=== PATIENT | female | born 1985 | race Caucasian/White ===

== ENCOUNTER 2020-05-06 10:59 | Emergency (ER) | payer OTHER, SELFPAY ==
[2020-05-06 11:22] VITALS: BP 139/89; PULSE 74; RESP 16; TEMP 36.9; O2SAT 99
--- NOTE | 2020-05-06 11:26 | ED.FEMALEGU ---
HPI - Female Genitourinary General Chief complaint: Urogenital-Female Stated complaint: possible uti Time Seen by Provider: 05/06/20 11:31 Source: patient and RN notes reviewed Mode of arrival: ambulatory Limitations: no limitations History of Present Illness HPI Narrative: This is a 35 years old female presents to the office for an evaluation of possible UTI. Onset about 1.5week ago with urinary urgency and frequency; which she tried to take care of it with azo. Symptoms are getting worse over the past couple days with urinary pressure/pain after she voids. Admits to history of UTI in the past. Symptoms reminiscent her previous UTI. 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 Related Data Home Medications Medication Instructions Recorded Confirmed acyclovir 400 mg PO BID 05/06/20 05/06/20 aspirin [Adult Low Dose Aspirin] 81 mg PO DAILY 05/06/20 05/06/20 ergocalciferol (vitamin D2) 1,250 mcg PO WEEKLY 05/06/20 05/06/20 [Vitamin D2] sertraline 75 mg PO DAILY 05/06/20 05/06/20 Allergies Allergy/AdvReac Type Severity Reaction Status Date / Time [place] And Derivatives AdvReac Mild Nausea and Verified 05/06/20 11:30 Vomiting Review of Systems Review of Systems: Narrative: CONSTITUTIONAL: Denies fever ENT: Denies rhinorrhea, congestion, sore throat, otalgia. CARDIOVASCULAR: Denies chest pain, palpitation RESPIRATORY: Denies dyspnea, wheezing, cough GASTROINTESTINAL: Denies abdominal pain, vomiting, diarrhea. Reports nausea GENITOURINARY: Denies vaginal discharge. SKIN: Denies rash MUSCULOSKELETAL: Reports sore in lower back;which is typical when she has UTI. NEUROLOGIC: Denies lightheaded All other systems reviewed are negative, except as documented in HPI. [facility] Past Medical History Medical History (Updated 05/06/20 @ 11:41 by SUZANNA Kang) Depression with anxiety GERD (gastroesophageal reflux disease) Hx of pulmonary artery stenosis Surgical History Surgical History (Updated 05/06/20 @ 11:30 by SUZANNA Kang) Hx of cholecystectomy Hx of mitral valve replacement Hx of tonsillectomy Family History Family History (Updated 05/06/20 @ 11:31 by SUZANNA Kang) Father Diabetes mellitus Lung cancer Comments At time of signature, I agree with nursing past medical, surgical, social and family history. There is no relevant family history pertinent to the presenting complaint. Exam Narrative: Exam Narrative: GENERAL: This is a well-nourished, well-developed patient, in no apparent distress. NOSE: External nose noted a couple pimple like lesions without erythema or edematous. No honey/crusted like lesions. No obvious nasal discharge, nares without redness, no rhinorrhea. CARDIOVASCULAR: Regular rate and rhythm with murmur noted. Patient aware that she has murmur. RESPIRATORY: Clear to auscultation. Breath sounds equal bilaterally. No wheezes, rales, or rhonchi. GASTROINTESTINAL: Abdomen soft, non-tender, nondistended. Bowel sounds are active. No hepato-splenomegaly, or palpable masses. No guarding. NEURO: awake, alert, and oriented to person, place and time. There were no obvious focal neurologic abnormalities. Steady gait [place] Coma Scale Eye Opening: Spontaneous 4 [place] Coma Scale Motor: Obeys Commands 6 [place] Coma Scale Verbal: Oriented 5 Course Vital Signs Vital signs: Vital Signs Temperature 98.5 F 05/06/20 11:22 Pulse Rate 74 05/06/20 11:22 Respiratory Rate 16 05/06/20 11:22 Blood Pressure 139/89 05/06/20 11:22 Pulse Oximetry 99 05/06/20 11:22 Temperature 98.5 F 05/06/20 11:22 Pulse Rate 74 05/06/20 11:22 Respiratory Rate 16 05/06/20 11:22 Blood Pressure 139/89 05/06/20 11:22 Pulse Oximetry 99 05/06/20 11:22 MDM - Female Genitourinary MDM Narrative Medical decision making narrative: Discharge instructions reviewed with patient, as well as provided in writing per nursing
== END 2020-05-06 11:45 | disposition home or self-care (01) ==
PROVIDERS: Emergency Provider Nurse Practitioner; PCP Internal Medicine
DX: R30.0 Dysuria (principal); R35.0 Frequency of micturition; F32.9 Major depressive disorder, single episode, unspecified; F41.9 Anxiety disorder, unspecified; K21.9 Gastro-esophageal reflux disease without esophagitis; Q25.6 Stenosis of pulmonary artery; Z95.2 Presence of prosthetic heart valve; Z79.82 Long term (current) use of aspirin
CPT/HCPCS: 81003; 87086; 99213; G0463

== ENCOUNTER 2020-06-20 16:20 | Emergency (ER) | payer OTHER, SELFPAY ==
[2020-06-20 16:33] VITALS: BP 139/70; PULSE 76; RESP 16; TEMP 36.9; O2SAT 98
--- NOTE | 2020-06-20 17:13 | ED.DENTAL ---
HPI - Dental/Oral General Chief complaint: Dental/Oral Stated complaint: sore throat Time Seen by Provider: 06/20/20 17:05 Source: patient Mode of arrival: ambulatory Limitations: no limitations History of Present Illness HPI Narrative: Destini Skinner is a 35 yo female with a PMH of pulmonary stenosis, pulmonary valve replacement, GERD, anxiety, chronic treatment for HSV 1, who comes to office with complaints of left lower jaw swelling and submandibular tenderness that started on Thursday. Remotely she has had a root canal 2 weeks ago after having a dental infection and abscess. 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 Related Data Home Medications Medication Instructions Recorded Confirmed acyclovir 400 mg PO BID 05/06/20 06/20/20 aspirin [Adult Low Dose Aspirin] 81 mg PO DAILY 05/06/20 06/20/20 ergocalciferol (vitamin D2) 1,250 mcg PO WEEKLY 05/06/20 06/20/20 [Vitamin D2] sertraline 75 mg PO DAILY 05/06/20 06/20/20 famotidine [Pepcid AC] 20 mg PO DAILY 06/20/20 06/20/20 Allergies Allergy/AdvReac Type Severity Reaction Status Date / Time [place] And Derivatives AdvReac Mild Nausea and Verified 05/06/20 11:30 Vomiting Review of Systems Review of Systems: Narrative: CONSTITUTIONAL: Denies fever, chills, sweats. EYES: Denies visual changes, redness, discharge. ENT: Denies rhinorrhea, congestion, sore throat, otalgia. Left lower jaw with submandibular tenderness and pain CARDIOVASCULAR: Denies chest pain, palpitations, edema. RESPIRATORY: Denies dyspnea, wheezing, cough GASTROINTESTINAL: Denies abdominal pain, nausea, vomiting, diarrhea. GENITOURINARY: Denies dysuria, hematuria, abnormal discharge SKIN: Denies rash or itching. NEUROLOGIC: Denies numbness, or focal weakness. PSYCHIATRIC: Denies anxiety or depression. [facility] Past Medical History Medical History Depression with anxiety GERD (gastroesophageal reflux disease) Hx of pulmonary artery stenosis Pulmonary stenosis Surgical History Surgical History Hx of cholecystectomy Hx of mitral valve replacement Hx of tonsillectomy Family History Family History Father Diabetes mellitus Lung cancer Social History Social History (Updated 06/20/20 @ 17:19 by Monika Harkins CNP) Smoking status: Never smoker Alcohol intake: current Gender identity (if verbalized by the patient): Female Comments At time of signature, I agree with nursing past medical, surgical, social and family history. There is no relevant family history pertinent to the presenting complaint. Exam Narrative: Exam Narrative: GENERAL: This is a well-nourished, well-developed patient, in mild distress. HEAD: normocephalic, atraumatic. EYES:Sclera clear/white. Vision is grossly intact. EARS: External ears normal, auditory canals clear and without drainage, TMs normal without perforation. Left ear pain but eardrum and canal are normal -hearing grossly intact. NOSE: External nose normal without nasal discharge, nares without redness, no rhinorrhea. THROAT: Mucous membranes moist, posterior pharynx mild erythema with left cheek swelling submandibular tenderness with large enlarged lymph node NECK: Neck supple, tender CARDIOVASCULAR: Regular rate and rhythm without murmurs, gallops, or rubs. RESPIRATORY: Clear to auscultation. Breath sounds equal bilaterally. No wheezes, rales, or rhonchi. GASTROINTESTINAL: Abdomen soft, non-tender, SKIN: warm, intact with no suspicious lesions or rash, good texture and turgor. NEURO: awake, alert, and oriented to person, place and time. There were no obvious focal neurologic abnormalities. Steady gait EXTREMITIES: Normal range of motion. BACK: Nontender without deformity Course Course Emergency Course: Patient has multipl
== END 2020-06-20 17:28 | disposition home or self-care (01) ==
PROVIDERS: Emergency Provider Nurse Practitioner; PCP Internal Medicine
DX: I88.9 Nonspecific lymphadenitis, unspecified (principal); K21.9 Gastro-esophageal reflux disease without esophagitis; F41.9 Anxiety disorder, unspecified; F32.9 Major depressive disorder, single episode, unspecified; Z95.2 Presence of prosthetic heart valve
CPT/HCPCS: 99213; G0463

== ENCOUNTER 2020-08-17 12:56 | Emergency (ER) | payer OTHER, SELFPAY ==
[2020-08-17 13:05] VITALS: BP 135/77; PULSE 83; RESP 16; TEMP 36.4; O2SAT 99
--- NOTE | 2020-08-17 13:09 | ED.LOWEXIN ---
HPI - Extremity Injury (Lower) General Chief Complaint: Extremity Injury, Lower Stated Complaint: back heel of right foot pain Source: patient and RN notes reviewed Limitations: no limitations History of Present Illness HPI Narrative: The obese patient, previously mostly healthy, presents with right heel pain. Patient states she has a half week history of right heel pain is mild, worse with motion, better at rest, located the insertion of the calcaneus. No known overuse/increase activity, bleeding, deformity, prior injury-but she had some mild ankle discomfort over a week ago that resolved completely after slipping. Discussed will treat broadly with meds, provided therapy exercises, and advice on inserts. Related Data Home Medications Medication Instructions Recorded Confirmed acyclovir 400 mg PO BID 05/06/20 08/17/20 aspirin [Adult Low Dose Aspirin] 81 mg PO DAILY 05/06/20 08/17/20 ergocalciferol (vitamin D2) 1,250 mcg PO WEEKLY 05/06/20 08/17/20 [Vitamin D2] sertraline 75 mg PO DAILY 05/06/20 08/17/20 famotidine [Pepcid AC] 20 mg PO DAILY 06/20/20 08/17/20 levonorgestrel-ethinyl estrad 1 tablet PO HS 08/17/20 08/17/20 [Vienva] Allergies Allergy/AdvReac Type Severity Reaction Status Date / Time [place] And Derivatives AdvReac Mild Nausea and Verified 05/06/20 11:30 Vomiting Review of Systems Review of Systems: Narrative: General/Constitutional: No weight loss,fever Eyes: N0: Redness,discharge Ears/Nose/Throat: No: Epistaxis,ear discharge Respiratory: Denies: Hemoptysis Gastrointestinal: No Vomiting, Bleeding-rectal Skin: No Lumps, eruption Neurologic: No Focal Weakness,Sz Hematologic: Denies: Petechiae/Purpura Psychiatric: No: Suicida ideationl All Other Systems: Reviewed and Negative [facility] Past Medical History Medical History (Updated 08/17/20 @ 14:22 by Bong Rodriguez MD) Depression with anxiety GERD (gastroesophageal reflux disease) Hx of pulmonary artery stenosis Pulmonary stenosis Surgical History Surgical History Hx of cholecystectomy Hx of mitral valve replacement Hx of tonsillectomy Family History Family History Father Diabetes mellitus Lung cancer Social History Social History (Updated 06/20/20 @ 17:19 by Monika Harkins CNP) Smoking status: Never smoker Alcohol intake: current Gender identity (if verbalized by the patient): Female Comments At time of signature, agree with nursing past medical, surgical, social and family history. There is no relevant family history pertinent to the presenting complaint Exam Narrative: Exam Narrative: General Appearance: Well appearing, Conjunctiva clear Ears: External ear normal, Auditory canal normal Nose: Normal nose, Nares clear Mouth/Throat: Normal appearing, Normal lips, Supple Respiratory: Airway patent, No respiratory distress MS ankle: Normal strength (mostly intact, limited flexion/extension by pain), Tenderness -Achilles tendon and insertion, with mild decreased ROM), no swelling (inc laterally), Other (no anterior drawer, no collateral laxity, ++ Achilles tenderness, no fifth MT tenderness, no Black test Skin: Warm, Dry, , Normal affect Course Vital Signs Vital signs: Vital Signs Temperature 97.6 F 08/17/20 13:05 Pulse Rate 83 08/17/20 13:05 Respiratory Rate 16 08/17/20 13:05 Blood Pressure 135/77 08/17/20 13:05 Pulse Oximetry 99 08/17/20 13:05 Temperature 97.6 F 08/17/20 13:05 Pulse Rate 83 08/17/20 13:05 Respiratory Rate 16 08/17/20 13:05 Blood Pressure 135/77 08/17/20 13:05 Pulse Oximetry 99 08/17/20 13:05 Discharge Plan Discharge Clinical Impression: Achilles tendinitis Qualifiers: Laterality: right Qualified Code(s): M76.61 - Achilles tendinitis, right leg Patient Disposition: Home, Self-Care Condition: Stable Instructions:
== END 2020-08-17 13:20 | disposition home or self-care (01) ==
PROVIDERS: Emergency Provider Emergency Medicine; PCP Internal Medicine
DX: M76.61 Achilles tendinitis, right leg (principal); F41.9 Anxiety disorder, unspecified; F32.9 Major depressive disorder, single episode, unspecified; K21.9 Gastro-esophageal reflux disease without esophagitis; Q25.6 Stenosis of pulmonary artery; Z95.2 Presence of prosthetic heart valve; Z79.82 Long term (current) use of aspirin
CPT/HCPCS: 99213; G0463

== ENCOUNTER 2021-01-22 17:04 | Emergency (ER) | payer BC, MEDICAID, SELFPAY ==
[2021-01-22 17:20] VITALS: BP 130/78; PULSE 73; RESP 16; TEMP 36.7; O2SAT 100
--- NOTE | 2021-01-22 17:55 | ED.URI ---
HPI - URI/Sore Throat General Chief Complaint: Upper Respiratory Infection Stated Complaint: SORE THROAT/STREP EXPOSURE Time Seen by Provider: 01/22/21 17:35 Source: patient, RN notes reviewed and old records reviewed Mode of arrival: ambulatory Limitations: no limitations History of Present Illness HPI Narrative: 35 year old female who presents to [facility] care with complaint of sore throat for the past 4 days. She states that one child tested positive for strep last Thursday and the other one tested positive yesterday. Patient concerned that she may also have strep due to her throat being sore, and nasal drainage with sinus congestion. Patient denies any ear pain, nausea, fevers, or cough.She states past heart surgery with valve replacement. MD elicited complaint: sore throat and rhinorrhea Pertinent past history: other (open heart valve replacement) Onset (ago): day(s) (4) Consistency: progressively worsening Severity: moderate Pain scale (0-10): 4 Description of mucous: clear Able to tolerate fluids by mouth: Yes Exacerbating factors: swallowing Context: sick contacts Treatments prior to arrival: acetaminophen Related Data Home Medications Medication Instructions Recorded Confirmed acyclovir 400 mg PO BID 05/06/20 08/17/20 aspirin [Adult Low Dose Aspirin] 81 mg PO DAILY 05/06/20 08/17/20 ergocalciferol (vitamin D2) 1,250 mcg PO WEEKLY 05/06/20 08/17/20 [Vitamin D2] sertraline 75 mg PO DAILY 05/06/20 08/17/20 famotidine [Pepcid AC] 20 mg PO DAILY 06/20/20 08/17/20 levonorgestrel-ethinyl estrad 1 tablet PO HS 08/17/20 08/17/20 [Vienva] Allergies Allergy/AdvReac Type Severity Reaction Status Date / Time [place] And Derivatives AdvReac Mild Nausea and Verified 05/06/20 11:30 Vomiting Review of Systems Review of Systems: Narrative: CONSTITUTIONAL: Denies fever, chills, or sweats. EYES: Denies visual changes, redness, or discharge. ENT: Positive rhinorrhea, congestion, sore throat, no otalgia. CARDIOVASCULAR: Denies chest pain, palpitations, or edema. RESPIRATORY: Denies cough or dyspnea. GASTROINTESTINAL: Denies abdominal pain, nausea, vomiting, or diarrhea. GENITOURINARY: Denies dysuria or hematuria. SKIN: Denies rash or itching. MUSCULOSKELETAL: Denies back pain, joint pain, or myalgia. NEUROLOGIC: Denies headache, numbness, or weakness. PSYCHIATRIC: Positive history of anxiety or depression. All systems reviewed & are unremarkable except as noted in HPI and below PMFSH Past Medical History Medical History (Updated 01/26/21 @ 12:16 by Pat Huitron NP) Depression with anxiety GERD (gastroesophageal reflux disease) Hx of pulmonary artery stenosis Interstitial cystitis Pulmonary stenosis Surgical History Surgical History Hx of cholecystectomy Hx of mitral valve replacement Hx of tonsillectomy Family History Family History Father Diabetes mellitus Lung cancer Social History Social History (Updated 01/26/21 @ 12:07 by Pat Huitron NP) Smoking status: Never smoker Alcohol intake: current Substance use: never Living arrangements: with family Gender identity (if verbalized by the patient): Female Comments At time of signature, agree with nursing past medical, surgical, social and family history. There is no relevant family history pertinent to the presenting complaint Exam Narrative: Exam Narrative: GENERAL: Well-appearing, well-nourished, and in no acute distress. HEAD: Normocephalic, atraumatic. EYES: PERRLA and EOMI. ENT: Nares red with clear rhinorrhea no epistaxis. Mucous membranes moist.TM's normal with good light reflex, throat pink with no lesions or exudates, no tonsil enlargement, NECK: Supple.no lymphadenopathy CHEST: Clear to auscultation. No respiratory distress.SAO2 100% on room air. HEART: Regular rate and rhythm. No murmur heard. Normal peripheral
== END 2021-01-22 18:08 | disposition home or self-care (01) ==
PROVIDERS: Emergency Provider Registered Nurse
DX: J06.9 Acute upper respiratory infection, unspecified (principal); J20.9 Acute bronchitis, unspecified; Z20.818 Contact with and (suspected) exposure to other bacterial communicable diseases; K21.9 Gastro-esophageal reflux disease without esophagitis; Q25.6 Stenosis of pulmonary artery; I34.1 Nonrheumatic mitral (valve) prolapse; F41.8 Other specified anxiety disorders; Z79.82 Long term (current) use of aspirin
CPT/HCPCS: 87081; 87880; 99213; G0463

== ENCOUNTER 2021-04-03 07:37 | Emergency (ER) | payer BC, MEDICAID, SELFPAY ==
--- NOTE | ~2021-04-03 | CT_ITS ---
EXAMINATION: CT abdomen pelvis w con DATE: 04/03/2021 09:01 INDICATION: Right lower quadrant abdominal pain. TECHNIQUE: Computed tomography (CT) of the abdomen and pelvis was performed with 100 mL Omnipaque 350 intravenous contrast. Automated exposure control and iterative reconstruction technique were employe d. The dose-length product was 956.33 mGy-cm. COMPARISON: CT abdomen and pelvis 06/18/2013 FINDINGS: The visualized portions of the lung bases are clear without pneumonia or pleural effusion. The heart size is normal. No pericardial effusion. The liver and spleen are normal. There are changes of cholecystectomy. The pancreas and left adrenal gland are normal. There is a 13 mm mass of fat in right adrenal gland, consistent with a myelolipoma. There are cysts in the kidneys measuring up to 16 mm on the left. There are 1 mm and 4 mm stones in right kidney. There are no dilated loops of bowel. The appendix is normal. There is a small umbilical hernia containing fat. There are no pathologicall y enlarged lymph nodes. There is trace physiologic fluid in the pelvis. There is a hemangioma in L3 v ertebral body. There is mild lumbar spondylosis. IMPRESSION: 1. Small nonobstructing right kidney stones. 2. Small umbilical hernia containing fat. Reviewed, dictated and finalized at location A.
[2021-04-03 08:00] VITALS: BP 144/86; PULSE 78; RESP 18; TEMP 36.6; O2SAT 96
[2021-04-03 08:05] LABS: Add Urine Microscopic? NO; Appearance Urine Clear (Clear); Bilirubin Urine Negative (Negative); Blood Urine Negative (Negative); Color Urine Yellow (Yellow); Glucose Urine UA Negative (Negative); Ketones Urine Negative (Negative); Leukocyte Esterase Ur Negative LEU/UL (Negative); Nitrate Urine Negative (Negative); Protein Urine Negative (Negative); Specific Grav Ur 1.018 (1.001-1.035); Urobilinogen Urine Negative mg/dL (<2.0)
[2021-04-03 08:23] LABS: Basophils Percent Auto 0.5 % (0.2-1.2); Eosinophils Absolute Auto 0.1 K/mm3 (0-0.3); Eosinophils Percent Auto 1.6 % (0-4.4); Hematocrit 40.6 % (37.0-47.0); Hemoglobin 13.7 g/dL (12.0-15.0); Immature Granulocyte Absolute 0.03 K/mm3 (0.00-0.031); Immature Granulocyte Percent A 0.5 % (0-0.5); Lymphocytes Percent Auto 36.5 % (18.3-44.2); Mean Corpuscular HGB Conc 33.7 g/dl (32-36); Mean Corpuscular Hemoglobin 30.3 pg (26-34); Mean Corpuscular Volume 89.8 fl (80-100); Mean Platelet Volume 9.8 fl (7.4-10.4); Monocytes Absolute Auto 0.4 K/mm3 (0.1-0.6); Monocytes Percent Auto 6.6 % (2.6-8.5); Neutrophils Absolute Auto 3.1 K/mm3 (1.3-6.7); Neutrophils Percent Auto 54.3 % (45.5-73.1); Platelet Count Result 241 k/mm3 (150-375); Red Blood Count 4.52 M/mm3 (4.2-5.4); Red Cell Distribution Width 11.9 % (11.5-14.5); White Blood Count 5.8 K/mm3 (4.5-10.0)
[2021-04-03 08:37] LABS: Alanine Aminotransferase 23 U/L (4-35); Albumin Level 4.6 g/dL (3.5-5.1); Alkaline Phosphatase 45 U/L (38-126); Anion Gap 11 mmol/L (8-16); Aspartate Amino Transferase 31 U/L (14-36); Bilirubin,Total 0.6 mg/dL (0.2-1.3); Blood Urea Nitrogen 16 mg/dL (7-17); Calcium 9.3 mg/dL (8.4-10.2); Carbon Dioxide 22 mmol/L (22-30); Chloride 102 mmol/L (98-107); Estimated CRCL calculation 183 ml/min; Estimated Glomerular Filt Rate > 60; Glucose 137 mg/dL (65-105); Lipase 65 U/L (23-300); Potassium 4.6 mmol/L (3.4-5.0); Sodium 135 mmol/L (137-145)
--- NOTE | 2021-04-03 09:30 | PC.NURSE ---
Pt ambulatory to the restroom
--- NOTE | 2021-04-03 09:41 | ED.GENADULT ---
HPI - General Adult General Chief complaint: Abdominal Pain Stated complaint: R SIDED ABD PAIN Time Seen by Provider: 04/03/21 07:56 History of Present Illness HPI narrative: Patient is a 36-year-old female who presents ER with abdominal pain. Ongoing for last week. Right-sided. Had increasing pain today. Located right lower quadrant. No radiation. No nausea/vomiting. No urinary frequency urgency. No vaginal bleeding or discharge. Has found no alleviating factors. Related Data Home Medications Medication Instructions Recorded Confirmed acyclovir 400 mg PO BID 05/06/20 08/17/20 aspirin [Adult Low Dose Aspirin] 81 mg PO DAILY 05/06/20 08/17/20 ergocalciferol (vitamin D2) 1,250 mcg PO WEEKLY 05/06/20 08/17/20 [Vitamin D2] sertraline 75 mg PO DAILY 05/06/20 08/17/20 famotidine [Pepcid AC] 20 mg PO DAILY 06/20/20 08/17/20 levonorgestrel-ethinyl estrad 1 tablet PO HS 08/17/20 08/17/20 [Vienva] Allergies Allergy/AdvReac Type Severity Reaction Status Date / Time [place] And Derivatives AdvReac Mild Nausea and Verified 04/03/21 08:05 Vomiting Review of Systems Review of Systems: All systems reviewed & are unremarkable except as noted in HPI and below Constitutional: Constitutional: Denies chills, Denies fever(s) and Denies weakness Cardiovascular: Cardiovascular: Denies chest pain and Denies radiating jaw, neck or arm pain Gastrointestinal: Gastrointestinal: Reports abdominal pain, Denies constipation, Denies diarrhea, Denies nausea and Denies vomiting Genitourinary: Genitourinary: Denies abnormal vaginal bleeding, Denies nocturia, Denies dysuria, Denies flank pain and Denies vaginal discharge [facility] Past Medical History Medical History (Updated 04/03/21 @ 09:45 by Ozzy Huffman MD) Depression with anxiety GERD (gastroesophageal reflux disease) Hx of pulmonary artery stenosis Interstitial cystitis Pulmonary stenosis Surgical History Surgical History (Updated 04/03/21 @ 09:42 by Ozzy Huffman MD) Hx of cholecystectomy Hx of mitral valve replacement Hx of tonsillectomy Pulmonary valve replaced Family History Family History Father Diabetes mellitus Lung cancer Social History Social History (Updated 01/26/21 @ 12:07 by Pat Huitron NP) Smoking status: Never smoker Alcohol intake: current Substance use: never Gender identity (if verbalized by the patient): Female Exam Narrative: Exam Narrative: GENERAL: Well-appearing, well-nourished, and in no acute distress. HEAD: Normocephalic, atraumatic. CHEST: Clear to auscultation. No respiratory distress. HEART: Regular rate and rhythm. Normal peripheral pulses. ABDOMEN: Soft, tender palpation right lower quadrant without guarding, nondistended. EXTREMITIES: Normal range of motion. No edema. SKIN: Warm, dry, no rash. NEURO: Alert and oriented x3. PSYCH: Normal mood and affect. Course Course Emergency Course: Unremarkable work-up. Pain improved. Discharge home. Vital Signs Vital signs: Vital Signs Temperature 97.8 F 04/03/21 08:00 Pulse Rate 78 04/03/21 08:00 Respiratory Rate 18 04/03/21 08:00 Blood Pressure 144/86 H 04/03/21 08:00 Pulse Oximetry 96 04/03/21 08:00 Temperature 97.8 F 04/03/21 08:00 Pulse Rate 78 04/03/21 08:00 Respiratory Rate 18 04/03/21 08:00 Blood Pressure 144/86 H 04/03/21 08:00 Pulse Oximetry 96 04/03/21 08:00 Medical Decision Making Vital Signs Vital Signs: Vital Signs Temperature 97.8 F 04/03/21 08:00 Pulse Rate 78 04/03/21 08:00 Respiratory Rate 18 04/03/21 08:00 Blood Pressure 144/86 H 04/03/21 08:00 Pulse Oximetry 96 04/03/21 08:00 Temperature 97.8 F 04/03/21 08:00 Pulse Rate 78 04/03/21 08:00 Respiratory Rate 18 04/03/21 08:00 Blood Pressure 144/86 H 04/03/21 08:00 Pulse Oximetry 96 04/03/21 08:00 Lab Data Result diagrams: 04/03/21 08:13
== END 2021-04-03 10:19 | disposition home or self-care (01) ==
PROVIDERS: Emergency Provider Emergency Medicine
DX: R10.31 Right lower quadrant pain (principal); K21.9 Gastro-esophageal reflux disease without esophagitis; F41.8 Other specified anxiety disorders; Z95.2 Presence of prosthetic heart valve; K42.9 Umbilical hernia without obstruction or gangrene; N20.0 Calculus of kidney
CPT/HCPCS: 36415; 74177; 80053; 81003; 81025; 83690; 85025; 99284; Q9967

== ENCOUNTER 2021-09-27 11:15 | Emergency (ER) | payer BC, MEDICAID, SELFPAY ==
[2021-09-27 11:28] VITALS: BP 137/77; PULSE 84; RESP 18; TEMP 36.2; O2SAT 99
--- NOTE | 2021-09-27 12:40 | ED.URI ---
HPI - URI/Sore Throat General Chief Complaint: Upper Respiratory Infection Stated Complaint: JORDAN, ST, exposed to covid and flu Time Seen by Provider: 09/27/21 12:12 Source: patient Mode of arrival: ambulatory Limitations: no limitations History of Present Illness HPI Narrative: Patient is a 36-year-old female complaining of cough, nasal congestion, fatigue, body aches that started 2 days ago. Patient states that her family tested positive for both Covid and flu recently. Patient denies any chest pain, shortness of breath, abdominal pain, nausea, vomiting, diarrhea, fever or chills. Related Data Home Medications Medication Instructions Recorded Confirmed acyclovir 400 mg PO BID 05/06/20 08/17/20 aspirin [Adult Low Dose Aspirin] 81 mg PO DAILY 05/06/20 08/17/20 ergocalciferol (vitamin D2) 1,250 mcg PO WEEKLY 05/06/20 08/17/20 [Vitamin D2] sertraline 75 mg PO DAILY 05/06/20 08/17/20 famotidine [Pepcid AC] 20 mg PO DAILY 06/20/20 08/17/20 levonorgestrel-ethinyl estrad 1 tablet PO HS 08/17/20 08/17/20 [Vienva] Allergies Allergy/AdvReac Type Severity Reaction Status Date / Time [place] And Derivatives AdvReac Mild Nausea and Verified 09/27/21 12:10 Vomiting Review of Systems Review of Systems: All systems reviewed & are unremarkable except as noted in HPI and below Constitutional: Constitutional: Denies body ache(s), Denies chills, Denies excessive sweating, Denies fever(s), Denies headache(s), Denies lethargy, Denies malaise, Denies weakness and Denies weight loss Eyes: Eyes: Denies blurry vision, Denies change in vision and Denies loss of vision ENT: Denies dizziness, Denies ear discharge, Denies headache(s), Denies lip swelling, Denies epistaxis, Denies neck pain, Denies throat swelling and Denies tongue swelling Cardiovascular: Cardiovascular: Denies chest pain, Denies chest pain at rest, Denies chest pain with activity, Denies diaphoresis, Denies rapid heart rate, Denies edema, Denies irregular heart rhythm, Denies lightheadedness, Denies palpitations, Denies dyspnea and Denies dyspnea on exertion Respiratory: Respiratory: Denies chest congestion, Denies hemoptysis, Denies dyspnea and Denies dyspnea on exertion Gastrointestinal: Gastrointestinal: Denies abdominal pain, Denies melena, Denies hematochezia, Denies diarrhea, Denies nausea, Denies vomiting and Denies hematemesis Musculoskeletal: Musculoskeletal: Denies abnormal gait, Denies deformity, Denies joint swelling, Denies limited range of motion, Denies neck pain and Denies numbness Neurologic: Denies Abnormal speech present, Denies abnormal gait, Denies confusion, Denies dizziness, Denies headache(s), Denies focal weakness, Denies loss of vision, Denies numbness, Denies Other visual disturbances, Denies Sensory deficit (Neuro) and Denies weakness Psychiatric: Psychiatric: Denies confusion, Denies depression, Denies auditory hallucinations, Denies homicidal ideation and Denies suicidal ideation Endocrine: Endocrine: Denies cold intolerance, Denies excessive sweating, Denies fatigue, Denies heat intolerance and Denies palpitations Hematologic/Lymphatic: Hematologic/Lymphatic: Denies easy bleeding and Denies easy bruising Allergic/Immunologic: Allergic/Immunologic: Denies lip swelling, Denies throat swelling and Denies tongue swelling PMFSH Past Medical History Medical History Depression with anxiety GERD (gastroesophageal reflux disease) Hx of pulmonary artery stenosis Interstitial cystitis Pulmonary stenosis Surgical History Surgical History Hx of cholecystectomy Hx of mitral valve replacement Hx of tonsillectomy Pulmonary valve replaced Family History Family History Father Diabetes mellitus Lung cancer Social History Social History (Reviewed 09/27/21 @ 12:41 by Jed Alvarez
[2021-09-27 13:48] VITALS: O2SAT 98
[2021-09-27 14:22] LABS: SARS-CoV-2 RNA PCR Negative
[2021-09-27 14:40] VITALS: BP 130/75; PULSE 78; RESP 20; O2SAT 97
== END 2021-09-27 14:40 | disposition home or self-care (01) ==
PROVIDERS: Emergency Provider Emergency Medicine; PCP Internal Medicine
DX: J06.9 Acute upper respiratory infection, unspecified (principal); Z20.822 Contact with and (suspected) exposure to COVID-19; N30.10 Interstitial cystitis (chronic) without hematuria; F41.8 Other specified anxiety disorders; K21.9 Gastro-esophageal reflux disease without esophagitis; Z95.2 Presence of prosthetic heart valve; Z87.74 Personal history of (corrected) congenital malformations of heart and circulatory system; Z79.82 Long term (current) use of aspirin
CPT/HCPCS: 87804; 99283; C9803; U0003; U0005

== ENCOUNTER 2022-05-23 17:13 | Emergency (ER) | payer BC, SELFPAY ==
[2022-05-23 17:24] VITALS: BP 129/79; PULSE 80; RESP 18; TEMP 36.2; O2SAT 99
--- NOTE | 2022-05-23 17:47 | ED.EAR ---
HPI - Ear Problem General Chief complaint: Ear Stated complaint: ear pain Time Seen by Provider: 05/23/22 17:47 Source: patient and RN notes reviewed Mode of arrival: ambulatory Limitations: no limitations History of Present Illness HPI Narrative: 37-year-old female presents to the [facility] with complaints of left ear pain, states it popped this afternoon when she sneezed. Patient states she has had nasal congestion since Thursday, 3 days. Has been taking Coricidin HBP due to a heart issue Denies any fevers. No dizziness. No blurry vision or change in vision. No nausea vomiting or diarrhea. No abdominal pain or chest pain. Related Data Home Medications Medication Instructions Recorded Confirmed aspirin 81 mg tablet,delayed 81 mg PO DAILY 05/06/20 05/23/22 release (Adult Low Dose Aspirin) ergocalciferol (vitamin D2) 1,250 1,250 mcg PO WEEKLY 05/06/20 05/23/22 mcg (50,000 unit) capsule (Vitamin D2) sertraline 50 mg tablet 75 mg PO DAILY 05/06/20 05/23/22 famotidine 20 mg tablet (Pepcid AC) 20 mg PO DAILY 06/20/20 05/23/22 levonorgestrel-ethinyl estradiol 1 tablet PO HS 08/17/20 05/23/22 0.1 mg-20 mcg tablet (Vienva) Allergies Allergy/AdvReac Type Severity Reaction Status Date / Time [place] And Derivatives AdvReac Mild Nausea and Verified 05/23/22 17:42 Vomiting Review of Systems Review of Systems: All systems reviewed & are unremarkable except as noted in HPI and below Constitutional: Constitutional: Reports no additional constitutional complaints, Denies chills and Denies fever(s) Eyes: Eyes: Reports no additional eye complaints ENT: Reports as per HPI, Reports otalgia (Left ear) and Reports nasal congestion Cardiovascular: Cardiovascular: Reports no additional cardiovascular complaints Respiratory: Respiratory: Reports no additional respiratory complaints Gastrointestinal: Gastrointestinal: Reports no additional gastrointestinal complaints Musculoskeletal: Musculoskeletal: Reports no additional musculoskeletal complaints Integumentary/Breasts: Skin/Breast: Reports system reviewed and no additional complaints, except as docu Neurologic: Reports system reviewed and no additional complaints, except as documented Psychiatric: Psychiatric: Reports no additional psychiatric complaints Allergic/Immunologic: Allergic/Immunologic: Reports no additional allergic/immunologic complaints PMFSH Past Medical History Medical History Depression with anxiety GERD (gastroesophageal reflux disease) Hx of pulmonary artery stenosis Interstitial cystitis Pulmonary stenosis Surgical History Surgical History Hx of cholecystectomy Hx of mitral valve replacement Hx of tonsillectomy Pulmonary valve replaced Family History Family History Father Diabetes mellitus Lung cancer Social History Social History Smoking status: Never smoker Alcohol intake: current Substance use: never Gender identity (if verbalized by the patient): Female Comments At the time of my signature, I reviewed and agree with the nursing past medical, surgical, social, and family history. There is no relevant family history pertinent to the patient complaint. Exam Const: General: healthy appearing, no acute distress and alert Nutritional Appearance: well nourished Orientation/consciousness: patient oriented x3 Limitations: no limitations HENMT: Head: normal to inspection Ears: external ears normal, EAC's normal and TM abnormal bulging bilateral and with fluid behind the TM bilateral; not erythematous, with no loss of landmarks and with no myringotomy tubes present General nose exam: Normal external nose present and Nasal discharge present clear Face and sinus: normal facial exam Mouth: Yes Normal
== END 2022-05-23 18:08 | disposition home or self-care (01) ==
PROVIDERS: Emergency Provider Nurse Practitioner; PCP Internal Medicine
DX: H66.93 Otitis media, unspecified, bilateral (principal); J01.90 Acute sinusitis, unspecified; Z79.82 Long term (current) use of aspirin; K21.9 Gastro-esophageal reflux disease without esophagitis
CPT/HCPCS: 99213; G0463

== ENCOUNTER → 2022-08-11 12:39 | Outpatient (CLI) | payer BC, SELFPAY ==
--- NOTE | ~2022-08-11 | US_ITS ---
EXAMINATION: US transvaginal DATE: 08/11/2022 13:25 INDICATION: Bilateral adnexal pain. Pelvic pressure. Comparison:No prior studies for comparison. TECHNIQUE: Multiple transabdominal and endovaginal sonographic images of the pelvis performed. FINDINGS: The uterus measures 7.9 x 4.4 x 5.5 cm. There is fluid in the endometrium. The endometrial complex measures 7 mm. The right ovary measures 2.4 x 1.9 x 2 cm and the left ovary measures 2.7 x 2.3 x 2.9 cm. There is a left ovarian cyst measuring 1.9 x 2 x 1.7 cm. There are small follicles in each ovary. Normal doppler signal in both ovaries. There is no free fluid in the pelvis. There are no abnormal masses seen on either side. IMPRESSION: 1. Left ovarian cyst measuring up to 2 cm. 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
== END ==
PROVIDERS: PCP Internal Medicine; Visit Provider Nurse Practitioner
DX: R10.2 Pelvic and perineal pain (principal); N83.202 Unspecified ovarian cyst, left side
CPT/HCPCS: 76830

== ENCOUNTER 2022-09-24 14:51 | Outpatient (CLI) | payer BC, SELFPAY ==
--- NOTE | ~2022-09-24 | US_ITS ---
EXAMINATION: US transvaginal DATE: 09/24/2022 15:20 INDICATION: Ovarian cyst- LT TECHNIQUE: Multiple transabdominal and endovaginal sonographic images of the pelvis were obtained. COMPARISON: 08/11/2022 FINDINGS: Uterus: 8.0 x 4.3 x 4.5 cm. Fluid present in the endocervical canal. Endometrial complex measures 3 m m. Right Ovary: 2.6 x 2.2 x 2.7 cm. Vascular flow is present. Dominant follicle measuring 1.3 cm. Left Ovary: 2.4 x 1.2 x 2.1 cm. Vascular flow is present. Multiple tiny follicles. Interval resolutio n of the previously described cyst or follicle. There is no free fluid in the pelvis. IMPRESSION: Normal pelvic sonogram findings. 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
== END 2022-09-24 14:52 ==
PROVIDERS: Visit Provider Obstetrics & Gynecology Gynecology
DX: N83.202 Unspecified ovarian cyst, left side (principal)
CPT/HCPCS: 76830

== ENCOUNTER 2023-03-30 10:01 | Emergency (ER) | payer BC, SELFPAY ==
--- NOTE | ~2023-03-30 | US_ITS ---
Duplex Sonography of the left extremity: Indication: Swelling Findings: Sagittal and transverse B-mode images as well as color-flow imaging were performed on the l eft femoral and popliteal veins. B-mode examination was done without and with compression in the tra nsverse plane. There is good visualization of the common femoral, proximal profunda femoral, superfi cial femoral, greater saphenous, and popliteal veins. Normal flow was seen on color-flow imaging. No rmal compressibility was demonstrated. Visualized left calf veins are also patent. Impression: No evidence of deep vein thrombosis involving the left lower extremity. Reviewed, dictated and finalized at location M. Impression: No evidence of deep vein thrombosis involving the left lower extremity.
[2023-03-30 10:06] VITALS: BP 139/75; PULSE 76; RESP 18; TEMP 36.4; O2SAT 99
[2023-03-30 11:07] VITALS: BP 138/73; PULSE 75; RESP 18; O2SAT 97
--- NOTE | 2023-03-30 12:38 | ED.EXTPRO ---
HPI - Extremity Problem General Chief complaint: Extremity Problem,Nontraumatic Stated complaint: pain and swelling in leg Time Seen by Provider: 03/30/23 10:32 History of Present Illness HPI Narrative: This is a 37-year-old female with past history of pulmonary valve replacement, who presents to the emergency department complaining of left leg swelling and rash concerning for blood clot. She states over the past 2 to 3 months, she has had intermittent posterior left calf tenderness, exacerbated with walking rated 3/10. Today she noted increased swelling and changes at the medial aspect of the left foreleg. She has no other complaints today. Related Data Home Medications Medication Instructions Recorded Confirmed aspirin 81 mg tablet,delayed 81 mg PO DAILY 05/06/20 05/23/22 release (Adult Low Dose Aspirin) ergocalciferol (vitamin D2) 1,250 1,250 mcg PO WEEKLY 05/06/20 05/23/22 mcg (50,000 unit) capsule (Vitamin D2) sertraline 50 mg tablet 75 mg PO DAILY 05/06/20 05/23/22 famotidine 20 mg tablet (Pepcid AC) 20 mg PO DAILY 06/20/20 05/23/22 levonorgestrel-ethinyl estradiol 1 tablet PO HS 08/17/20 05/23/22 0.1 mg-20 mcg tablet (Vienva) Allergies Allergy/AdvReac Type Severity Reaction Status Date / Time [place] And Derivatives AdvReac Mild Nausea and Verified 03/30/23 10:10 Vomiting Review of Systems Review of Systems: CONSTITUTIONAL: Denies fever, chills, or sweats. CARDIOVASCULAR: Denies chest pain, palpitations, or edema. RESPIRATORY: Denies cough or dyspnea. GASTROINTESTINAL: Denies abdominal pain, nausea, vomiting, or diarrhea. GENITOURINARY: Denies dysuria or hematuria. SKIN: Denies rash or itching. MUSCULOSKELETAL: Left calf pain and swelling denies back pain, joint pain, or myalgia. NEUROLOGIC: Denies headache, numbness, dizziness, or weakness. PSYCHIATRIC: Denies anxiety or depression. [facility] Past Medical History Medical History Depression with anxiety GERD (gastroesophageal reflux disease) Hx of pulmonary artery stenosis Interstitial cystitis Pulmonary stenosis Surgical History Surgical History Hx of cholecystectomy Hx of mitral valve replacement Hx of tonsillectomy Pulmonary valve replaced Family History Family History Father Diabetes mellitus Lung cancer Social History Social History Smoking status: Never smoker Alcohol intake: current Substance use: never Living arrangements: with family Gender identity (if verbalized by the patient): Female Exam Narrative: GENERAL: Well-developed, well-nourished, and in no acute distress. HEAD: Normocephalic, atraumatic. EYES: PERRLA and EOMI. CHEST: Clear to auscultation. No respiratory distress. No wheezes rales or rhonchi HEART: Regular rate and rhythm. No murmur heard. Normal peripheral pulses. ABDOMEN: Soft, nontender, nondistended, normal active bowel sounds. EXTREMITIES: Mild tenderness to palpation to the posterior aspect of the left calf without mass. Homans' sign positive. Normal-appearing Achilles tendon. Normal range of motion. No edema. SKIN: There is mild erythema to the medial aspect of the left calf with what appears to be telangiectasias, just proximal to the ankle. There is no noted induration or sharp demarcation concerning for cellulitis. Warm, dry, no rash. NEURO: No focal deficits. Alert and oriented x3. PSYCH: Normal mood and affect. Course Course Emergency Course: 12:35 - Lower extremity ultrasound negative for DVT. I suspect a muscular strain. Will discharge with recommendation for RICE therapy and NSAIDs for pain. Discussed return and emergent precautions including signs/symptoms of neurovascular compromise and infection. The patient voiced understanding and is co
[2023-03-30 13:11] VITALS: BP 135/81; PULSE 73; RESP 16; O2SAT 99
== END 2023-03-30 13:05 | disposition home or self-care (01) ==
PROVIDERS: Emergency Provider Preventive Medicine Aerospace Medicine
DX: S86.912A Strain of unspecified muscle(s) and tendon(s) at lower leg level, left leg, initial encounter (principal); X58.XXXA Exposure to other specified factors, initial encounter
CPT/HCPCS: 93971; 99284

== ENCOUNTER 2023-06-02 18:03 | Emergency (ER) | payer OTHER, BC, SELFPAY ==
[2023-06-02 19:10] VITALS: BP 133/72; PULSE 71; RESP 16; TEMP 36.8; O2SAT 100
[2023-06-02 19:51] VITALS: BP 133/72; PULSE 71; RESP 16; TEMP 36.8; O2SAT 100
--- NOTE | 2023-06-02 19:59 | ED.GENADULT ---
HPI - General Adult General Chief complaint: Upper Respiratory Infection Stated complaint: Sore Throat Source: patient Mode of arrival: ambulatory Limitations: no limitations History of Present Illness HPI narrative: Patient presents for evaluation of sore throat. Symptom onset this morning. She reports some left-sided ear pain as well. She has had some hot flashes and chills but denies objective fever. No cough, shortness of breath, nausea, vomiting, diarrhea. No recent sick contacts to her knowledge. She does not smoke. Related Data Home Medications Medication Instructions Recorded Confirmed aspirin 81 mg tablet,delayed 81 mg PO DAILY 05/06/20 05/23/22 release (Adult Low Dose Aspirin) ergocalciferol (vitamin D2) 1,250 1,250 mcg PO WEEKLY 05/06/20 05/23/22 mcg (50,000 unit) capsule (Vitamin D2) sertraline 50 mg tablet 75 mg PO DAILY 05/06/20 05/23/22 famotidine 20 mg tablet (Pepcid AC) 20 mg PO DAILY 06/20/20 05/23/22 levonorgestrel-ethinyl estradiol 1 tablet PO HS 08/17/20 05/23/22 0.1 mg-20 mcg tablet (Vienva) acyclovir 400 mg tablet mg 06/02/23 06/02/23 empagliflozin 10 mg tablet mg 06/02/23 (Jardiance) levonorgestrel-ethinyl estradiol tablet 06/02/23 0.1 mg-20 mcg tablet (Lutera (28)) losartan 25 mg tablet mg 06/02/23 Allergies Allergy/AdvReac Type Severity Reaction Status Date / Time [place] And Derivatives AdvReac Mild Nausea and Verified 06/02/23 19:04 Vomiting Review of Systems Review of Systems: CONSTITUTIONAL: Reports hot flashes and chills. Denies objective fever. EYES: Denies visual changes, redness, or discharge. ENT: Reports sore throat and left-sided ear pain. CARDIOVASCULAR: Denies chest pain, palpitations, or edema. RESPIRATORY: Denies cough or dyspnea. GASTROINTESTINAL: Denies abdominal pain, nausea, vomiting, or diarrhea. GENITOURINARY: Denies dysuria or hematuria. SKIN: Denies rash or itching. MUSCULOSKELETAL: Denies back pain, joint pain, or myalgia. NEUROLOGIC: Denies headache, numbness, dizziness, or weakness. PSYCHIATRIC: Denies anxiety or depression. [facility] Past Medical History Medical History Depression with anxiety GERD (gastroesophageal reflux disease) Hx of pulmonary artery stenosis Interstitial cystitis Pulmonary stenosis Surgical History Surgical History Hx of cholecystectomy Hx of mitral valve replacement Hx of tonsillectomy Pulmonary valve replaced Family History Family History Father Diabetes mellitus Lung cancer Social History Social History Smoking status: Never smoker Alcohol intake: current Substance use: never Living arrangements: with family Gender identity (if verbalized by the patient): Female Exam Narrative: GENERAL: Well-appearing, well-nourished, and in no acute distress. HEAD: Normocephalic, atraumatic. EYES: PERRLA and EOMI. ENT: Nares clear, no rhinorrhea or epistaxis. Mucous membranes moist. Posterior pharyngeal erythema without exudate. Uvula is midline. Bilateral TMs pearly kapoor nonbulging NECK: Supple. No adenopathy or masses. No carotid bruits or JVD CHEST: Clear to auscultation. No respiratory distress. No wheezes rales or rhonchi HEART: Regular rate and rhythm. No murmur heard. Normal peripheral pulses. ABDOMEN: Soft, nontender, nondistended, normal active bowel sounds. EXTREMITIES: Normal range of motion. No edema. SKIN: Warm, dry, no rash. NEURO: No focal deficits. Alert and oriented x3. PSYCH: Normal mood and affect. Course Course Emergency Course: This is a 38-year-old female who presented for evaluation of sore throat. Rapid strep was negative. Through shared decision making we opted to proceed with antibiotic therapy. She is l
== END 2023-06-02 20:01 | disposition home or self-care (01) ==
PROVIDERS: Emergency Provider Nurse Practitioner; PCP Physician Assistant
DX: J02.9 Acute pharyngitis, unspecified (principal); Z79.899 Other long term (current) drug therapy
CPT/HCPCS: 87081; 87880; 99213; G0463

== ENCOUNTER 2023-09-16 12:32 | Emergency (ER) | payer OTHER, MEDICAID, SELFPAY ==
[2023-09-16 12:59] VITALS: BP 153/88; PULSE 84; RESP 16; TEMP 36.8; O2SAT 98
--- NOTE | 2023-09-16 13:49 | ED.URI ---
HPI - URI/Sore Throat General Chief Complaint: Upper Respiratory Infection Stated Complaint: Sinus Time Seen by Provider: 09/16/23 13:54 Source: patient and RN notes reviewed Mode of arrival: ambulatory Limitations: no limitations History of Present Illness HPI Narrative: 48-year-old female presents with concern for 5 day history of cough, nasal congestion, rhinorrhea. She reports she coughs worse at night time. She denies fever, aches, chills sweats. Denies known sick contacts. Reports she has taken JocelineQuil and Ida MD elicited complaint: cough and nasal congestion Related Data Home Medications Medication Instructions Recorded Confirmed aspirin 81 mg tablet,delayed 81 mg PO DAILY 05/06/20 09/16/23 release (Adult Low Dose Aspirin) ergocalciferol (vitamin D2) 1,250 1,250 mcg PO WEEKLY 05/06/20 09/16/23 mcg (50,000 unit) capsule (Vitamin D2) sertraline 50 mg tablet 75 mg PO DAILY 05/06/20 09/16/23 famotidine 20 mg tablet (Pepcid AC) 20 mg PO DAILY 06/20/20 09/16/23 levonorgestrel-ethinyl estradiol 1 tablet PO HS 08/17/20 09/16/23 0.1 mg-20 mcg tablet (Vienva) acyclovir 400 mg tablet 800 mg PO DIRECTED 06/02/23 09/16/23 empagliflozin 10 mg tablet 10 mg PO DAILY 06/02/23 09/16/23 (Jardiance) levonorgestrel-ethinyl estradiol 1 tablet PO DIRECTED 06/02/23 09/16/23 0.1 mg-20 mcg tablet (Lutera (28)) losartan 25 mg tablet 25 mg PO DAILY 06/02/23 09/16/23 Allergies Allergy/AdvReac Type Severity Reaction Status Date / Time [place] And Derivatives AdvReac Mild Nausea and Verified 09/16/23 13:07 Vomiting Review of Systems Review of Systems: CONSTITUTIONAL: Reports malaise. Denies chills, sweats, or fever. EYES: Denies visual changes, redness, or discharge. ENT: Reports rhinorrhea, congestion CARDIOVASCULAR: Denies chest pain, palpitations, or edema. RESPIRATORY: Reports cough. Denies dyspnea. GASTROINTESTINAL: Denies abdominal pain, nausea, vomiting, diarrhea SKIN: Denies rash or itching. MUSCULOSKELETAL: Denies myalgia. NEUROLOGIC: Denies headache. All systems reviewed & are unremarkable except as noted in HPI and below PMFSH Past Medical History Medical History Depression with anxiety GERD (gastroesophageal reflux disease) Hx of pulmonary artery stenosis Interstitial cystitis Pulmonary stenosis Surgical History Surgical History Hx of cholecystectomy Hx of mitral valve replacement Hx of tonsillectomy Pulmonary valve replaced Family History Family History Father Diabetes mellitus Lung cancer Social History Social History Smoking status: Never smoker Alcohol intake: current Substance use: never Living arrangements: with family Gender identity (if verbalized by the patient): Female Comments At time of signature, agree with nursing past medical, surgical, social and family history. There is no relevant family history pertinent to the presenting complaint Exam Narrative: GENERAL: Nontoxic-appearing, well-nourished, and in no acute distress. HEAD: Normocephalic EYES: PERRLA, conjunctivae clear ENT: Nares clear, turbinates edematous and erythematous, clear discharge. Mucous membranes moist. TM pearly kapoor with dull light reflex bilaterally; no tragal tenderness. Oropharynx not erythematous without lesions. Tonsils not enlarged and without exudate, no drooling, no hoarseness, no trismus, uvula midline. NECK: Supple. No lymphadenopathy CHEST: Clear to auscultation, breath sounds equal. No wheezing, rhonchi, rales, or stridor. No respiratory distress, speaks in full sentences. HEART: Regular rate and rhythm. No murmur heard. SKIN: Warm, dry, no rash. NEURO: Alert and oriented x3. PSYCH: Normal mood and affect Course Cour
== END 2023-09-16 14:05 | disposition home or self-care (01) ==
PROVIDERS: Emergency Provider Nurse Practitioner; PCP Nurse Practitioner Family
DX: J40 Bronchitis, not specified as acute or chronic (principal); Z20.822 Contact with and (suspected) exposure to COVID-19; K21.9 Gastro-esophageal reflux disease without esophagitis; Q25.6 Stenosis of pulmonary artery; Z95.2 Presence of prosthetic heart valve; F41.8 Other specified anxiety disorders; Z79.82 Long term (current) use of aspirin
CPT/HCPCS: 87426; 87804; 99213; C9803; G0463

== ENCOUNTER 2023-12-28 15:20 | Outpatient (CLI) | payer OTHER, SELFPAY ==
[2023-12-28 15:57] LABS: Alanine Aminotransferase 21 U/L (6-35); Albumin Level 4.6 g/dL (3.5-5.1); Alkaline Phosphatase 44 U/L (38-126); Anion Gap 10 mmol/L (4-12); Aspartate Amino Transferase 22 U/L (14-36); Bilirubin,Total 0.4 mg/dL (0.2-1.3); Blood Urea Nitrogen 15 mg/dL (7-17); Calcium 9.3 mg/dL (8.4-10.2); Carbon Dioxide 21 mmol/L (22-30); Chloride 106 mmol/L (98-107); Estimated Glomerular Filt Rate > 60; Glucose 176 mg/dL (65-110); Potassium 3.7 mmol/L (3.4-5.0); Sodium 137 mmol/L (137-145)
== END 2023-12-28 15:21 | disposition home or self-care (01) ==
LOC: ANHSURGERY 15:24
PROVIDERS: PCP Physician Assistant; Visit Provider Obstetrics & Gynecology
DX: Z01.818 Encounter for other preprocedural examination (principal); E11.9 Type 2 diabetes mellitus without complications; N92.0 Excessive and frequent menstruation with regular cycle
CPT/HCPCS: 36415; 80053; 86850; 86900; 86901

== ENCOUNTER 2024-01-08 00:27 | Day surgery (SDC) | payer OTHER, SELFPAY ==
[2023-12-28 10:14] VITALS: BMI 35.5
--- NOTE | 2023-12-28 10:19 | PC.NURSE ---
Report to the Outpatient Waiting Room, entrance under the green pavilion located off [facility], at time 6:00 on date 01/08/24. Planned Procedure Time: 7:30. Time changes happen often and if your time is changed the preop area will call you the afternoon before. - You and your visitor will be asked to self-screen and do not enter if you have any COVID symptoms. - A mask is optional within the hospital at this time. Patients may have clear liquids (water, carbonated beverages, clear teas, apple juice) until 3 hours prior to surgery (4:30) with a maximum of 20 ounces. - No food from midnight until time of surgery Take the following medications with a SIP of water the morning of surgery: NONE DO NOT STOP ANY OF YOUR OTHER PRESCRIPTION MEDICATIONS PRIOR TO SURGERY ?EXCEPT THE FOLLOWING Medications to discontinue per physician: VITAMINS/SUPPLEMENTS Date to take last dose: 01/04/[address] BRADY REGARDING ASPIRIN Please no make-up, nail tongan, hairspray, perfume, deodorant, or body powder the day of surgery. No jewelry (including any body piercings) or valuables the day of surgery, leave them at home. Please take a shower or bath the night before, or the morning of, surgery with an antibacterial soap. Wear comfortable, loose fitting clothing. - Jewelry must be removed prior to entering the operating room. Rings and piercings that are not removed may be cut off. - The hospital will not accept responsibility for valuables. - Please leave all valuables, including medications, at home the day of surgery. If you are going home after surgery, a licensed driver guide must drive you home. - NO public transportation without another adult if you receive anesthesia. - We recommend that an adult stay with you for 24 hours following discharge. - We also recommend that you do not drive, make important decision, drink alcoholic beverages, or take any drugs that were not prescribed by your health care provider for at least 24 hours after your discharge time. Follow any additional instructions given to you from your surgeon. If you or anyone in your household have experienced Covid symptoms in the past week, please notify your surgeon or the nurse liaison at the phone number below for possible testing. Telephone instructions given to PT - STEPHY and asked if any additional questions and then verbalized understanding. Patient advised to call surgeon office or pre surgery nurse liaison [phone] if any additional questions.
[2024-01-08] VITALS (15 sets, daily range): BP systolic 104–153; BP diastolic 60–91; PULSE 71–104; RESP 9–24; TEMP 36.2–37.3; O2SAT 92–99
[2024-01-08 06:30] LABS: Glucose Point of Care 113 mg/dl (65-105)
[2024-01-08] MEDS: ACETAMINOPHEN 500 MG TABLET 1000 MG PO (07:05)
--- NOTE | 2024-01-08 07:05 | WPDANESEPPF ---
Anes - Initial Pre Proc Eval Procedure: Operation Date: 01/08/24 07:30 Proposed Procedures p Total Laparoscopic Hysterectomy with Bilateral Salpingectomy - Tobi Humphreys MD Date/Time: 01/08/24 07:05 Surgeon: Tobi Humphreys MD Pre Op Diagnosis: Menorrhagia Patient Data Age: 38 Gender: F Height: 1.68 m Weight: 99.8 kg Allergies Allergy/AdvReac Type Severity Reaction Status Date / Time [place] And Derivatives AdvReac Mild Nausea and Verified 12/28/23 10:11 Vomiting Home Medications Medication Instructions Recorded Confirmed Type aspirin 81 mg tablet,delayed 81 mg PO DAILY 05/06/20 12/28/23 History release (Adult Low Dose Aspirin) ergocalciferol (vitamin D2) 1,250 1,250 mcg PO WEEKLY 05/06/20 12/28/23 History mcg (50,000 unit) capsule (Vitamin D2) sertraline 50 mg tablet 75 mg PO HS 05/06/20 12/28/23 History famotidine 20 mg tablet (Pepcid AC) 20 mg PO DAILY 06/20/20 12/28/23 History levonorgestrel-ethinyl estradiol 1 tablet PO HS 08/17/20 12/28/23 History 0.1 mg-20 mcg tablet (Vienva) acyclovir 400 mg tablet 800 mg PO HS 06/02/23 12/28/23 History empagliflozin 10 mg tablet 10 mg PO DAILY 06/02/23 12/28/23 History (Jardiance) losartan 25 mg tablet 25 mg PO HS 06/02/23 12/28/23 History L.acidop,casei,lactis,rham-B.lact,vannessa 1 cap PO DAILY 12/28/23 12/28/23 History 625 mg (10 billion cell) capsule (Advanced Probiotic) Laboratory Tests 01/08/24 06:27 POC Capillary Glucose 113 H mg/dl (65-105) Patient hx anesthesia problems: none Family hx anesthesia problems: other Results Review: All pre-operative results and documents have been reviewed as part of the pre-operative evaluation. [facility] Past Medical History Medical History Depression with anxiety GERD (gastroesophageal reflux disease) Hx of pulmonary artery stenosis Interstitial cystitis Pulmonary stenosis Surgical History Surgical History Hx of cholecystectomy Hx of mitral valve replacement Hx of tonsillectomy Pulmonary valve replaced Family History Family History Father Diabetes mellitus Lung cancer Social History Social History Smoking status: Never smoker Alcohol intake: current Alcohol use details: VERY RARE Substance use: never Substance use type: marijuana Living arrangements: with family Gender identity (if verbalized by the patient): Female Spiritual care concerns: No Anes - Eval Final PreProcedure Day of Procedure 01/08/24 07:05 Patient weight: obese Heart: regular rate and rhythm Lungs: clear to auscultation Airway: Mallampati scale class II Neurological: alert and oriented Last oral intake: >/= 8 hours ASA classification: III Emergent: no Anesthetic plan: proceed Anesthesia type and monitoring: general ETT and standard monitoring Results Review: All pre-operative results and documents have been reviewed as part of the pre-operative evaluation. Informed Consent: The patient's anesthetic plan and its attendant risks and benefits were discussed with the patient/family/POA. Questions were solicited and answers provided to the satisfaction of the patient/family/POA.
[2024-01-08] MEDS: KETOROLAC 15 MG/ML VIAL (*BKC) IV PUSH (07:06)
[2024-01-08] MEDS: LACTATED RINGERS 1,000 ML 30 ML IV CONT ×2 (07:06→09:34)
--- NOTE | 2024-01-08 07:37 | WPDHPUPDATE1 ---
History and Physical Update Update Date/Time: 01/08/24 07:37 History and Physical has been reviewed, including an updated exam of the patient. There are NO changes in the patient's condition. Risks, benefits, and alternatives have been discussed and questions answered. Patient agrees to proceed with procedure.
[2024-01-08] MEDS: ceFAZolin 2 GM/D5W 50 ML 2 GM/50 ML BAG IVPB (07:44)
[2024-01-08] MEDS: ceFAZolin SODIUM 1 GM VIAL (08:17)
--- NOTE | 2024-01-08 09:28 | W.PM.PROC2 ---
Procedure Note - Detailed Date of Procedure 01/08/24 Pre-op Diagnosis Menorrhagia Post-op Diagnosis Same Procedure Performed Total laparoscopic hysterectomy. Bilateral salpingectomy with right oophorectomy. Surgeon Tobi Humphreys MD Anesthesia General Findings Mildly enlarged uterus, normal-appearing tubes and ovaries. Normal vulva, vagina, cervix. Description of Procedure This patient was taken to the operating room. She was prepped and draped in the dorsal lithotomy position after induction of general anesthesia. The uterine manipulator and Jason cup were placed. This was done with a speculum and tenaculum. The speculum was placed. The cervix was grasped with a tenaculum. The stay sutures were placed at 3 and 9:00 a.m.. The stay sutures of 0 Vicryl were brought through the appropriately sized Jason cup. The tip of the CAMI manipulator was placed in the intrauterine cavity. The cup was slid into place around the cervix and into the fornices. It was locked into place. The sutures were then wrapped around the handle and tied under tension. A 5 mm skin incision was made in the left upper quadrant the abdomen. A 5 mm trocar was inserted into the intrauterine cavity under direct visualization of the scope. Pneumoperitoneum was achieved. A left lower quadrant 11 mm incision was made with scalpel. An 11 mm trocar was inserted into the anterior abdominal cavity under direct visualization the scope. A 5 mm infraumbilical incision was made with a scalpel and a 5 mm trocar was inserted the intra-abdominal cavity under direct visualization of the scope. Bilateral ureteral lysis was performed. This was done from the pelvic brim down to the uterine artery. This was done with careful dissection using sharp and blunt dissection. The fallopian tubes were removed bilaterally. The mesosalpinx around the fallopian tubes were cauterized transected with LigaSure cautery. This was done in a bilateral fashion from the ovary to the uterine cornua. The fallopian tube was transected at the uterine cornu and amputated bilaterally. Right ovary was included. The infundibulopelvic ligament was cauterized after identification of the ureter. This transected. The para ovarian tissue was cauterized transected LigaSure. The left tube was taken out the left lower quadrant trocar site. the right tube and ovary remained attached to the uterus. In a stepwise fashion along the lateral aspects of the uterus the round ligament and broad ligaments were cauterized transected down to the level of the uterine arteries. A bladder flap was created in the bladder was moved distally to the end of the cervix and over the Jason cup. The bilateral uterine arteries were cauterized and transected. Colpotomy was then performed. In a circumferential fashion the vagina was transected using unipolar cautery. The incision was made down on the Jason cup. when the colpotomy was completed, the uterus and cervix were taken out through the vagina. A pneumo occluder was placed in the vagina. The vaginal cuff was closed with a 0 V lock suture in a running fashion. The pelvis was irrigated with copious amounts antibiotic irrigation. The ureters were again examined and found to be intact and flowing freely under the uterine arteries into the bladder. The bladder was intact. It was examined directly. Cystoscopy was performed after administration of methylene blue. The cystoscope was inserted. Bladder was distended with fluid. The ureteric meatus was observed bilaterally. Blue fluid was seen to egress bilaterally. The bladder was drained and the cystoscope was withdrawn. The vagina was irrigated with Betadine solution after removal of the Pneumo occluder. The patient was taken to recovery room. She was stable condition. Sponge lap and needle counts were correct x2. Drains Yes Packing No Pathology Yes Complications No immediate complications Condition Stable Disposition Floor
[2024-01-08] MEDS: ONDANSETRON INJ 4 MG/2 ML VIAL IV PUSH (10:06)
[2024-01-08] MEDS: fentaNYL CITRATE INJ (*CRX) 100 MCG/2 ML VIAL 25 MCG IV PUSH ×8 (10:09→10:32)
[2024-01-08] MEDS: HYDROmorphone HCL INJ (*CRX) 1 MG/ML SYR IV PUSH ×3 (10:50→11:20)
--- NOTE | 2024-01-08 11:55 | PC.NURSE ---
This patient, Destini Skinner, was received from PACU via bed on 01/08/24 at 1155. Patient/family oriented to unit policies and routines.
[2024-01-08 12:07] LABS: Glucose Point of Care 163 mg/dl (65-105)
[2024-01-08] MEDS: HYDROcodone/acetaminophen (*CRX) 10-325 MG TABLET 1 TAB PO ×4 (12:57→23:53)
[2024-01-08] MEDS: SIMETHICONE 80 MG TAB.CHEW PO ×2 (12:57→16:35)
[2024-01-08] MEDS: DEXTROSE 5%/0.45% SOD CHL 1,000 ML 125 ML IV CONT (12:58)
[2024-01-08] MEDS: ACYCLOVIR 400 MG TABLET 800 MG PO (20:55)
[2024-01-08] MEDS: SERTRALINE HCL 25 MG TABLET 75 MG PO (20:55)
[2024-01-08] MEDS: LOSARTAN POTASSIUM 25 MG TABLET PO (20:56)
[2024-01-09 02:56] VITALS: BP 120/57; PULSE 66; RESP 18; TEMP 36.6; O2SAT 98
[2024-01-09] MEDS: HYDROcodone/acetaminophen (*CRX) 10-325 MG TABLET 1 TAB PO ×2 (02:56→08:37)
[2024-01-09 07:20] VITALS: BP 113/66; PULSE 72; RESP 18; TEMP 36.6; O2SAT 97
[2024-01-09] MEDS: ACIDOPHILUS/BULGARICUS CHEWABLE TABLET 1 TABLET BY MOUTH (08:37)
[2024-01-09] MEDS: SIMETHICONE 80 MG TAB.CHEW PO (08:38)
--- NOTE | 2024-01-09 11:21 | PM.OBPNVD ---
OB - PN: Subj Subjective Date/time seen: 01/09/24 11:21 Interval history: delete this note OB - PN: Obj Data Labs Labs: Laboratory Results - last 24 hr 01/08/24 10:00 POC Capillary Glucose 163 H OB - PN A/P Time Spent With Patient Time: Total time spent is greater than 50% in coordination of care (as documented) at patient's floor/unit and/or counseling patient: Review of Systems Review of Systems: All systems reviewed & are unremarkable except as noted in HPI and below Exam Const: General: cooperative Resp: Effort & Inspection: normal respiratory effort Cardio: Rate: regular rate GI: Inspection: normal to inspection Other: incisions CDI Back/Spine/Pelvis: Back: no CVA tenderness Neuro: General: patient oriented x3 Extrem: Right lower extremity: normal to inspection Left lower extremity: normal to inspection
--- NOTE | 2024-01-09 11:23 | P.PNOB_ITS ---
COMPUTER NETWORK SPECIALIST - A/P Assessment and plan (1) Post-op pain: Code(s): G89.18 - Other acute postprocedural pain Status: Acute (2) History of hysterectomy: Code(s): Z90.710 - Acquired absence of both cervix and uterus Status: Acute Postoperative Procedures: Procedures Operation Date: 01/08/24 07:30 Actual Procedure Side Surgeon p Total Laparoscopic Hysterectomy with Bilateral Salpingectomy, Right Oophorectomy Bilateral Tobi Humphreys MD Postoperative day: 1 Postoperative status: doing well Postoperative plan: routine post-op care Time Spent With Patient Time: Total time spent is greater than 50% in coordination of care (as documented) at patient's floor/unit and/or counseling patient: Time with patient: less than 15 minutes COMPUTER NETWORK SPECIALIST- PN:Subj Post-Op Subjective Date/time seen: 01/09/24 11:23 Interval history: post op day 1 doing well eating , voiding, passing flatus desires d/c home Review of Systems Review of Systems: All systems reviewed & are unremarkable except as noted in HPI and below Exam Const: General: cooperative and healthy appearing Resp: Effort & Inspection: normal respiratory effort Cardio: Rate: regular rate GI: Other: incisions CDI Back/Spine/Pelvis: Back: no CVA tenderness Skin: General skin exam: normal color Neuro: General: patient oriented x3 Extrem: Right lower extremity: normal to inspection Left lower extremity: normal to inspection Psych: Appearance: grossly normal COMPUTER NETWORK SPECIALIST - PN: Obj Data Vital Signs Vital Signs: Vital Signs - 24 hr 01/08/24 11:30 01/08/24 11:42 01/08/24 12:56 Temperature 37.0 C Pulse Rate 93 97 104 H Respiratory Rate 12 11 L 16 Blood Pressure 140/68 137/66 150/67 H Pulse Oximetry 93 95 96 Oxygen Delivery Room Air Room Air 01/08/24 16:30 01/08/24 20:48 01/08/24 23:50 Temperature 37.3 C 36.6 C 36.2 C L Pulse Rate 73 72 74 Respiratory Rate 18 16 16 Blood Pressure 114/65 136/71 105/62 Pulse Oximetry 96 97 97 Oxygen Delivery 01/09/24 02:56 01/09/24 07:20 Temperature 36.6 C 36.6 C Pulse Rate 66 72 Respiratory Rate 18 18 Blood Pressure 120/57 L 113/66 Pulse Oximetry 98 97 Oxygen Delivery Intake/Output Intake/Output: Intake & Output 01/06/24 01/07/24 01/08/24 01/09/24 23:59 23:59 23:59 23:59 Intake Total 2450 Output Total 1999 300 Balance 450 -300 Meds/Results Medications: Active Medications Generic Name Dose Route Start Last Admin Trade Name Freq PRN Reason Stop Dose Admin Hydrocodone Bitart/Acetaminophen 1 tab 01/08/24 11:48 Hydrocodone/Acetaminophen (*Crx) 5-325 Mg Tablet PO Q3H PRN Pain Rated 5 or Less Hydrocodone Bitart/Acetaminophen 1 tab 01/08/24 11:48 01/09/24 08:37 Hydrocodone/Acetaminophen (*Crx) 10-325 Mg Tablet PO 1 tab Q3H PRN Administration Pain Rated 6 or Greater Acyclovir 800 mg 01/08/24 21:00 01/08/24 20:55 Acyclovir 400 Mg Tablet PO 800 mg HS NANCY Administration Aspirin 81 mg 01/09/24 09:00 Aspirin 81 Mg Enteric Tablet PO DAILY [facility] Empagliflozin 10 mg 01/09/24 09:00 01/09/24 09:25 Empagliflozin 10 Mg Tablet PO Not Given DAILY [facility] Ergocalciferol 50,000 units 01/12/24 09:00 Ergocalciferol 50,000 Units Capsule PO WEEKLY [facility] Famotidine 20 mg 01/09/24 09:00 01/09/24 08:41 Famotidine 20 Mg Tablet PO Not Given DAILY [facility] Dextrose/Sodium Chloride 1,000 mls @ 125 mls/hr 01/08/24 11:48 01/09/24 05:25 Dextrose 5% Sodium Chloride 0.45% IV CONT Not Given .Q8H NANCY Ibuprofen 600 mg 01/08/24 11:48 Ibuprofen 600 Mg Tablet PO Q6H PRN Cramping Ketorolac Tromethamine 30 mg 01/08/24 11:48 Ketorolac 30 Mg/Ml Vial (*Bkc) IV PUSH 01/13/24 11:47 Q6H PRN Pain Rated 4-6 Lactobacillus Acidophilus 1 tablet 01/09/24 09:00 01/09/24 08:37 Acidophilus/Bulgaricus Chewable Tablet BY MOUTH 1 tablet DAILY NANCY Administration Losartan Potassium 25 mg 01/08/24 21:00 01/08/24 20:56 Losartan Potassium 25 Mg Tablet PO 25 mg HS NANCY Administration Naloxone HCl 0.1 mg 01/08/24 11:48 Naloxone Hcl 0.4 Mg/Ml Vial IV PUSH Q2M PRN Respiratory rate less than 10 Ondansetron HCl 4 mg 01/08/24 11:48 Ondansetron Inj 4 Mg/2 Ml Vial IV PUSH Q6H PRN Nausea And Vomiting Sertraline HCl 75 mg 01/08/24 21:00 01/08/24 20:55 Sertraline Hcl 25 Mg Tablet PO 75 mg HS NANCY Administration Simethicone 80 mg 01/08/24 12:00 01/09/24 08:38 Simethicone 80 Mg Tab.Chew PO 80 mg TIDWM NANCY Administration Labs Labs: Laboratory Results - last 24 hr 01/08/24 10:00 POC Capillary Glucose 163 H
== END 2024-01-09 11:50 | disposition home or self-care (01) ==
LOC: ANHSURGERY 06:02 → ANHOB2 11:51
PROVIDERS: PCP Physician Assistant; Visit Provider Obstetrics & Gynecology
PROC: 0UT9FZZ Resection of Uterus, Via Natural or Artificial Opening With Percutaneous Endoscopic Assistance (ICD-10-PCS; CPT 58571; principal; 2024-01-08 07:30)
DX: N92.0 Excessive and frequent menstruation with regular cycle (principal); N83.201 Unspecified ovarian cyst, right side; E11.9 Type 2 diabetes mellitus without complications; I10 Essential (primary) hypertension; K21.9 Gastro-esophageal reflux disease without esophagitis; F41.9 Anxiety disorder, unspecified; F32.A Depression, unspecified; Z79.82 Long term (current) use of aspirin; Z79.84 Long term (current) use of oral hypoglycemic drugs
CPT/HCPCS: 58571; 36415; 80053; 82948; 86850; 86900; 86901; 88307; 99199; A9270; J0360; J0690; J1100; J1170; J1200; J1885; J2250; J2405; J2704; J3010; J7030; J7120; Q9968

== ENCOUNTER 2024-03-07 18:19 | Emergency (ER) | payer OTHER, SELFPAY ==
--- NOTE | ~2024-03-07 | CT_ITS ---
EXAMINATION: CT abdomen pelvis w con DATE: 03/07/2024 20:29 INDICATION: low abd pain, recent hysterectomy TECHNIQUE: Computed tomography (CT) of the abdomen and pelvis was performed with 100 mL Omnipaque-350 intravenous contrast. Automated exposure control and iterative reconstruction technique were employe d. The dose-length product was 1103.63 mGy-cm. COMPARISON: 04/03/2021. FINDINGS: Lower thorax: Unremarkable Liver: Enlarged. Diffuse low-density parenchyma. Biliary/Gallbladder: Gallbladder is absent. No bile duct dilation. Pancreas: No mass or duct dilation. Spleen: Normal. Adrenals:Right adrenal myelolipoma. Kidneys: No suspicious mass, obstructing stone, or hydronephrosis. Subcentimeter bilateral hypodensit ies too small to characterize but most likely represent cysts. Simple left midpole cyst. Punctate non obstructing left renal calculi. 3 mm nonobstructing right lower pole calculus. GI tract: Mild distal esophageal and antral wall edema. No small or large bowel dilation. Normal appe ndix. Mesentery/Peritoneum: No ascites, mass, or free air. Retroperitoneum: No mass. Pelvis: Absent uterus. Minimal stranding at the vaginal cuff, likely residual postsurgical change. No focal fluid collection. Normal left ovary with a 1.8 cm simple cyst or dominant follicle that requir es no additional evaluation. The right ovary is not visualized. Soft Tissues: Small uncomplicated fat-containing umbilical hernia. Bones: No acute osseous finding. IMPRESSION: Mild esophagitis and antral gastritis. Otherwise, no acute process detected in the abdomen or pelvis. Reviewed, dictated and finalized at location K.
[2024-03-07 18:21] VITALS: BP 141/68; PULSE 69; RESP 16; TEMP 36.6; O2SAT 99
[2024-03-07 18:54] VITALS: BP 118/67; PULSE 65; RESP 20; TEMP 36.6; O2SAT 97
[2024-03-07 19:18] LABS: Basophils Absolute Auto 0.1 K/mm3 (0.0-0.1); Basophils Percent Auto 0.7 % (0.2-1.2); Eosinophils Absolute Auto 0.1 K/mm3 (0-0.3); Eosinophils Percent Auto 1.4 % (0-4.4); Hematocrit 42.5 % (37.0-47.0); Hemoglobin 14.1 g/dL (12.0-15.0); Immature Granulocyte Absolute 0.04 K/mm3 (0.00-0.031); Immature Granulocyte Percent A 0.6 % (0-0.5); Lymphocytes Absolute Auto 2.62 K/mm3 (0.9-3.2); Lymphocytes Percent Auto 36.6 % (18.3-44.2); Mean Corpuscular HGB Conc 33.2 g/dl (32-36); Mean Corpuscular Hemoglobin 30.1 pg (26-34); Mean Corpuscular Volume 90.8 fl (80-100); Mean Platelet Volume 9.3 fl (7.4-10.4); Monocytes Absolute Auto 0.6 K/mm3 (0.1-0.6); Monocytes Percent Auto 8.5 % (2.6-8.5); Neutrophils Absolute Auto 3.7 K/mm3 (1.3-6.7); Neutrophils Percent Auto 52.2 % (45.5-73.1); Platelet Count Result 211 k/mm3 (150-375); Red Blood Count 4.68 M/mm3 (4.2-5.4); Red Cell Distribution Width 12.3 % (11.5-14.5); White Blood Count 7.2 K/mm3 (4.5-10.0)
[2024-03-07 19:19] LABS: Appearance Urine Clear (Clear); Bilirubin Urine Negative (Negative); Blood Urine Negative (Negative); Color Urine Yellow (Yellow); Glucose Urine UA 3+ mg/dL (Negative); Ketones Urine Negative (Negative); Leukocyte Esterase Ur Negative LEU/UL (Negative); Nitrate Urine Negative (Negative); Protein Urine Negative (Negative); Specific Grav Ur 1.028 (1.001-1.035); Urobilinogen Urine 0.2 mg/dL (<2.0); pH Urine 5.5 (5.0-9.0)
[2024-03-07 19:29] LABS: Add Urine Microscopic? NO; Alanine Aminotransferase 62 U/L (6-35); Albumin Level 4.7 g/dL (3.5-5.1); Alkaline Phosphatase 49 U/L (38-126); Anion Gap 10 mmol/L (4-12); Aspartate Amino Transferase 36 U/L (14-36); Bilirubin,Total 0.5 mg/dL (0.2-1.3); Blood Urea Nitrogen 20 mg/dL (7-17); Calcium 9.5 mg/dL (8.4-10.2); Carbon Dioxide 24 mmol/L (22-30); Chloride 103 mmol/L (98-107); Estimated CRCL calculation 153 ml/min; Estimated Glomerular Filt Rate > 60; Glucose 113 mg/dL (65-110); Lipase 74 U/L (23-300); Sodium 137 mmol/L (137-145)
--- NOTE | 2024-03-07 19:32 | ED.ABDPAIN ---
HPI - Abdominal Pain General Chief Complaint: Abdominal Pain Stated Complaint: abd pain Time Seen by Provider: 03/07/24 18:53 Source: patient Mode of arrival: ambulatory Limitations: no limitations History of Present Illness HPI narrative: This is a 38 year old female that presents to the ER for low abdominal pain. Ongoing since yesterday. Reports recently having a hysterectomy. Reports she had been recovering well until yesterday. She started to have lower abdominal pressure. The pain worsened today which prompted her to be seen. Reports she did have sex with her significant other the day before the pain started. Denies fever, vomiting, vaginal bleeding, dysuria, hematuria or diarrhea. Related Data Home Medications Medication Instructions Recorded Confirmed aspirin 81 mg tablet,delayed 81 mg PO DAILY 05/06/20 01/08/24 release (Adult Low Dose Aspirin) ergocalciferol (vitamin D2) 1,250 1,250 mcg PO WEEKLY 05/06/20 01/08/24 mcg (50,000 unit) capsule (Vitamin D2) sertraline 50 mg tablet 75 mg PO HS 05/06/20 12/28/23 famotidine 20 mg tablet (Pepcid AC) 20 mg PO DAILY 06/20/20 12/28/23 levonorgestrel-ethinyl estradiol 1 tablet PO HS 08/17/20 12/28/23 0.1 mg-20 mcg tablet (Vienva) acyclovir 400 mg tablet 800 mg PO HS 06/02/23 12/28/23 empagliflozin 10 mg tablet 10 mg PO DAILY 06/02/23 12/28/23 (Jardiance) losartan 25 mg tablet 25 mg PO HS 06/02/23 12/28/23 L.acidop,casei,lactis,rham-B.lact,vannessa 1 cap PO DAILY 12/28/23 12/28/23 625 mg (10 billion cell) capsule (Advanced Probiotic) Allergies Allergy/AdvReac Type Severity Reaction Status Date / Time [place] And Derivatives AdvReac Mild Nausea and Verified 03/07/24 18:59 Vomiting Review of Systems Review of Systems: CONSTITUTIONAL: Denies fever GASTROINTESTINAL: Reports abdominal pain. Denies nausea, vomiting, or diarrhea. GENITOURINARY: Denies dysuria or hematuria. All systems reviewed & are unremarkable except as noted in HPI and below PMFSH Past Medical History Medical History Depression with anxiety GERD (gastroesophageal reflux disease) Hx of pulmonary artery stenosis Interstitial cystitis Pulmonary stenosis Surgical History Surgical History Hx of cholecystectomy Hx of mitral valve replacement Hx of tonsillectomy Pulmonary valve replaced Family History Family History Father Diabetes mellitus Lung cancer Social History Social History Smoking status: Never smoker Alcohol intake: current Alcohol use details: VERY RARE Substance use: current Substance use type: marijuana Living arrangements: with family Gender identity (if verbalized by the patient): Female Spiritual care concerns: No Exam Narrative: GENERAL: Well-appearing, well-nourished, and in no acute distress. HEAD: Normocephalic, atraumatic. EYES: EOMI. CHEST: Clear to auscultation. No respiratory distress. No wheezes rales or rhonchi HEART: Regular rate and rhythm. No murmur heard. Normal peripheral pulses. ABDOMEN: Soft, nondistended, normal active bowel sounds. Mild tenderness to palpation throughout the low abdomen, without guarding EXTREMITIES: Normal range of motion. No edema. SKIN: Warm, dry, no rash. NEURO: No focal deficits. Alert and oriented x3. PSYCH: Normal mood and affect Course Course Emergency Course: Patient updated on her workup and agrees with plan of care Vital Signs Vital signs: Vital Signs Temperature 97.8 F 03/07/24 18:21 Pulse Rate 69 03/07/24 18:21 Respiratory Rate 16 03/07/24 18:21 Blood Pressure 141/68 H 03/07/24 18:21 Pulse Oximetry 99 03/07/24 18:21 Oxygen Delivery Room Air 03/07/24 18:21 Temperature 97.9 F 03/07/24 18:54 Pulse Rate 65 03/07/24 18:54 R
== END 2024-03-07 21:20 | disposition home or self-care (01) ==
PROVIDERS: Emergency Provider Physician Assistant; PCP Physician Assistant
DX: R10.2 Pelvic and perineal pain (principal); F41.9 Anxiety disorder, unspecified; F32.A Depression, unspecified; K21.9 Gastro-esophageal reflux disease without esophagitis
CPT/HCPCS: 36415; 74177; 80053; 81003; 83690; 85025; 99284; Q9967

== ENCOUNTER 2024-07-19 17:16 | Emergency (ER) | payer OTHER, SELFPAY ==
[2024-07-19 17:25] VITALS: BP 126/72; PULSE 76; RESP 15; TEMP 36.4; O2SAT 99
--- NOTE | 2024-07-19 17:37 | ED.URI ---
HPI - URI/Sore Throat General Chief Complaint: Upper Respiratory Infection Stated Complaint: Sinus Time Seen by Provider: 07/19/24 17:37 Source: patient, RN notes reviewed and old records reviewed Mode of arrival: ambulatory Limitations: no limitations History of Present Illness HPI Narrative: Patient presents with complaints of cough for 4 days. She denies any shortness of breath. She does report that she has history of catching bronchitis fairly easily. Reports this feels like past bouts of bronchitis. She denies any wheezing. Does report the cough is worse at night. She denies any fever, chills, sweats. Related Data Home Medications Medication Instructions Recorded Confirmed aspirin 81 mg tablet,delayed 81 mg PO DAILY 05/06/20 07/19/24 release (Adult Low Dose Aspirin) ergocalciferol (vitamin D2) 1,250 1,250 mcg PO WEEKLY 05/06/20 07/19/24 mcg (50,000 unit) capsule (Vitamin D2) sertraline 50 mg tablet 75 mg PO HS 05/06/20 07/19/24 famotidine 20 mg tablet (Pepcid AC) 20 mg PO DAILY 06/20/20 07/19/24 levonorgestrel-ethinyl estradiol 1 tablet PO HS 08/17/20 07/19/24 0.1 mg-20 mcg tablet (Vienva) empagliflozin 10 mg tablet 10 mg PO DAILY 06/02/23 07/19/24 (Jardiance) losartan 25 mg tablet 25 mg PO HS 06/02/23 07/19/24 L.acidop,casei,lactis,rham-B.lact,vannessa 1 cap PO DAILY 12/28/23 07/19/24 625 mg (10 billion cell) capsule (Advanced Probiotic) Allergies Allergy/AdvReac Type Severity Reaction Status Date / Time [place] And Derivatives AdvReac Mild Nausea and Verified 07/19/24 17:21 Vomiting Review of Systems Review of Systems: All systems reviewed & are unremarkable except as noted in HPI and below Constitutional: Constitutional: Reports no additional constitutional complaints ENT: Reports system reviewed and no additional complaints, except as documented Cardiovascular: Cardiovascular: Reports no additional cardiovascular complaints Respiratory: Respiratory: Reports as per HPI, Reports no additional respiratory complaints, Reports chest congestion, Reports cough and Reports pain with cough Gastrointestinal: Gastrointestinal: Reports no additional gastrointestinal complaints PMFSH Past Medical History Medical History Depression with anxiety GERD (gastroesophageal reflux disease) Hx of pulmonary artery stenosis Interstitial cystitis Pulmonary stenosis Surgical History Surgical History Hx of cholecystectomy Hx of mitral valve replacement Hx of tonsillectomy Pulmonary valve replaced Family History Family History Father Diabetes mellitus Lung cancer Social History Social History Smoking status: Never smoker Alcohol intake: current Alcohol use details: VERY RARE Substance use: current Substance use type: marijuana Living arrangements: with family Gender identity (if verbalized by the patient): Female Spiritual care concerns: No Exam Const: General: cooperative, no acute distress, alert and awake Orientation/consciousness: oriented to person, oriented to place and oriented to time HENMT: Head: normal to inspection Ears: TM's normal bilaterally Mouth: Yes moist mucous membranes Resp: Effort & Inspection: normal respiratory effort and able to speak in complete sentences Auscultation: clear to auscultation bilaterally, no crackles, no rales, no rhonchi and no wheezes Other: Hacking cough noted Cardio: Palpation: normal PMI Rate: regular rate Rhythm: regular rhythm Heart sounds: S1 normal heart sound present and S2 normal heart sound present Neuro: General: oriented to person, oriented to place and oriented to time Cranial nerves: Yes CN's II-XII intact bilaterally Psych: Appearance: grossly normal Thought process: Normal thought process present Insight: Good insight present (Psych) Judgement: Good judgement present (Psych) Course Course Level of Care: Express Care Visit Vital Signs Vital signs: Vital Signs Temperature 97.6 F 07/19/24 17:25 Pulse Rate 76 07/19/24 17:25 Respiratory Rate 15 07/19/24 17:25 Blood Pressure 126/72 07/19/24 17:25 Pulse Oximetry 99 07/19/24 17:25 Oxygen Delivery Room Air 07/19/24 17:25 Temperature 97.6 F 07/19/24 17:25 Pulse Rate 76 07/19/24 17:25 Respiratory Rate 15 07/19/24 17:25 Blood Pressure 126/72 07/19/24 17:25 Pulse Oximetry 99 07/19/24 17:25 Oxygen Delivery Room Air 07/19/24 17:25 MDM - URI/Sore Throat MDM Narrative Medical decision making narrative: Patient in no distress, nontoxic appearing. Reassuring exam. Treat as bronchitis, steroids, inhaler. Discharge instructions reviewed with patient, as well as provided in writing per nursing staff. The instructions also include specific and strict return/GO TO THE ER as well as f/u information. All questions have been answered, and the patient deny any further questions with discharge and discharge plan. Some parts of this dictation were generated by voice recognition software and may contain typographical and/or grammatical inaccuracies. Differential Diagnosis Differential diagnosis: Likely upper respiratory infection, sinusitis, viral infection and bronchitis Medical Records Attestation: I reviewed the patient's medical records. Discharge Plan Discharge Clinical Impression: Bronchitis Patient Disposition: Home, Self-Care Condition: Stable Instructions: Antibiotic Form, Acute Bronchitis (ED) Additional Instructions: Take all medications as prescribed. Follow with primary care provider. Emergency department for new or worse symptoms Patient Language: Citizen Of [place] Prescriptions: New prednisone 50 mg tablet 50 mg PO DAILY Qty: 5 0RF albuterol sulfate [Ventolin HFA] 90 mcg/actuation HFA aerosol inhaler 2 puff inhalation QID PRN (Reason: shortness of breath or wheezing) Qty: 8.5 0RF No Action levonorgestrel-ethinyl estrad [Vienva] 0.1-20 mg-mcg tablet 1 tablet PO HS sertraline 50 mg Tablet 75 mg PO HS aspirin [Adult Low Dose Aspirin] 81 mg Tablet,Delayed Release (Dr/Ec) 81 mg PO DAILY ergocalciferol (vitamin D2) [Vitamin D2] 1,250 mcg (50,000 unit) Capsule 1,250 mcg PO WEEKLY Patient Comments: PT TAKES ON THURSDAY losartan 25 mg tablet 25 mg PO HS Jardiance 10 mg tablet 10 mg PO DAILY famotidine [Pepcid AC] 20 mg Tablet 20 mg PO DAILY Advanced Probiotic 625 mg (10 billion cell) Capsule 1 cap PO DAILY Follow-up/Referrals: Latoya,MD Alida [Primary Care Provider] - 2 Weeks Time of Disposition: 17:46
== END 2024-07-19 17:50 | disposition home or self-care (01) ==
PROVIDERS: Emergency Provider Nurse Practitioner Family; PCP Internal Medicine
DX: J40 Bronchitis, not specified as acute or chronic (principal); K21.9 Gastro-esophageal reflux disease without esophagitis; Q25.6 Stenosis of pulmonary artery; F41.8 Other specified anxiety disorders
CPT/HCPCS: 99213; G0463

== ENCOUNTER 2024-11-01 10:15 | Outpatient (CLI) | payer OTHER, SELFPAY ==
--- NOTE | ~2024-11-01 | MMUS_ITS ---
EXAMINATION: MM diagnostic sanjeev BI w kristy, US breast LT limited HISTORY: Palpable left breast lump TECHNIQUE: Additional 3-D tomosynthesis images of the breasts were performed and synthetic 2-D images were generated. CAD analysis was submitted and interpreted. High resolution Limited left breast ultr asound was performed. COMPARISON: None BREAST PARENCHYMAL COMPOSITION: Not dense: There are scattered areas of fibroglandular density. FINDINGS: MAMMOGRAPHIC FINDINGS: There is no evidence for malignancy in the right breast. There is a focal mass in the upper outer anais drant of the left breast corresponding to the area of palpable concern. The mass contains some centra l areas of lucency, most likely benign intramammary lymph node. This area compresses with spot CC vie w. No suspicious calcifications or architectural distortion. ULTRASOUND: Limited left breast ultrasound: L1-2 o'clock, 7 cm from the nipple there is a heterogeneous area with out discrete mass or fluid collection. IMPRESSION: 1. Probable benign radiolucent left breast mass in the upper outer quadrant without definite sonograp hic correlate. 2. Recommend 6 month follow-up diagnostic left mammogram. BI-RADS category 3, probably benign findings. 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 E PAINTER IMPRESSION: 1. Probable benign radiolucent left breast mass in the upper outer quadrant wit hout definite sonographic correlate. 2. Recommend 6 month follow-up diagnostic left mammogram. BI-RADS category 3, probably benign findings.
--- OUTSIDE RECORDS SUMMARY | 2024-11-01 11:19 | XMS_ITS | Clinical Summary ---
Author Organization [facility] Address [address] [place] [address] Care Team Providers Care Skiver Machine Name Role Phone Alida Klein MD Primary Care Provider [phone] Allergies No known active allergies Medications acyclovir (ZOVIRAX) 800 MG tablet Take 1 tablet (800 mg total) by mouth daily. 4 Active vitamin D2, ergocalciferol, (DRISDOL) 1.25 mg capsule Take 1 capsule (1.25 mg total) by mouth once a week. 4 Active sertraline (ZOLOFT) 50 MG tablet Take 1.5 tablets (75 mg total) by mouth daily. Active famotidine (PEPCID) 20 MG tablet Take 1 tablet (20 mg total) by mouth 2 (two) times daily. Active ASPIRIN 81 OR Take 81 mg by mouth. Active ondansetron (ZOFRAN) 4 MG tabletIndicatio ns:Type 2 diabetes mellitus with hyperglycemia, without long-term current use of insulin (CMS/HCC HHS/HCC) TAKE 1 TABLET BY MOUTH EVERY 8 HOURS NEEDED 90 tablet 4 Active semaglutide (OZEMPIC) 2 MG/3ML injection (PEN)Indication s:Diabetes Mellitus Inject 0.25 mg into the skin every 7 days. Indications: Diabetes 9 mL 4 Active oxybutynin XL (DITROPAN-XL) 10 MG 24 hr tablet Take 1 tablet (10 mg total) by mouth daily. 4 Active methylPREDNISol one, [place], (MEDROL DOSEPAK) 4 MG tabletIndicatio ns:Acute sinusitis, recurrence not specified, unspecified location 6 TABLETS ON DAY ONE, 5 TABLETS DAY TWO, 4 TABLETS DAY THREE, 3 TABLETS DAY FOUR, 2 TABLETS DAY FIVE, AND 1 TABLET DAY SIX 1 each 5 Active JARDIANCE 25 MG tabletIndicatio ns:Type 2 diabetes mellitus with hyperglycemia, without long-term current use of insulin ([facility]) Take 1 tablet (25 mg total) by mouth daily. 90 tablet 1 4 10/19/19 25 Discontinue d(Other- Please enter comment in Notes field) amoxicillin-cla vulanate (AUGMENTIN) 875-125 MG tabletIndicatio ns:Acute sinusitis, recurrence not specified, unspecified location Take 1 tablet (875 mg total) by mouth 2 (two) times daily for 7 days. 14 tablet 5 10/07/19 25 Active Problems Problem Noted Date Diagnosed Date Pelvic floor dysfunction 05/18/2024 Overview (05/18/2024): On physical therapy ANTHONY (generalized anxiety disorder) 03/23/2024 Herpes simplex 03/23/2024 Mixed stress and urge urinary incontinence 03/23 Primary hypertension 03/23/2024 Class 2 severe obesity due t o excess calories with serious comorbidity and body mass index (BMI) of 35.0 to 35.9 in adult ([facility]) 03/23/2024 NANCY (obstructive sleep apnea) 03/23/2024 Type 2 diabetes mellitus wit h hyperglycemia, without long-term current use of insulin ([facility]) 12/21/2020 Nonrheumatic pulmonary valve stenosis 12/14/2018 Encounters Date Type Department Care Team Description 10/19/2024 Orders Only [facility] [place] [address] [place] [address] Alida Klein MD 10/19/2024 MyChart Message Enc [facility] [place] [address] [place] [address] Alida Klein MD Jardiance 09/30/2024 3:40 PM PRACTICE 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 [facility] [place] [facility] [place] [address] [place] [address] Alida Klein MD Cough (Started 2 days ago. ) 09/30/2024 Travel 09/12/2024 4:00 PM PRACTICE 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 Office Visit [facility] - [place] [address] [place] [address] Alida Klein MD Follow Up; Hypertension; Diabetes 09/12/2024 Travel from Last 3 Months Immunizations Name Administration Dates Next Due Influenza (Generic) 07/13/2021, 7,06/30/2016,07/12/2013,2011 Influenza Adult (Generic) 06/21/2024,07/2023,07/13/2022,06/21/2020,2018,06/15/2018 Pneumococcal (Prevnar 20) 05/18/2024 Tdap (Generic) 02/20/2024,11/10/2020 Family History Medical History Relation Comments Diabetes Father Lung Cancer Father Diabetes Paternal Grandmother Relation Status Comments Father Paternal Grandmother Social History Tobacco Use Types Packs/Day Years Used Date Smoking Tobacco: Never Smokeless Tobacco: Never Tobacco Cessation:Counseling Given: Yes Comments:Counseled by Dr. Klein. Alcohol Use Standard Drinks/Week Comments Yes 3 (1 standard drink = 0.6 oz pur e alcohol) Socially AUDIT-C Answer Date Recorded Q1: How often do you have a drink containing alc ohol? Monthly or less 03/23/2024 Q2: How many drinks containi ng alcohol do you have on a typical day when you are drinking? 1 or 2 03/23/2024 Q3: How often do you have si x or more drinks on one occasion? Never 03/23/2024 PHQ-2 Answer Date Recorded Patient Health Questionnaire-2 Score 1 03/23/2024 Comments No Sex and Gender Information Value Date Recorded Sex Assigned at Female 03/25/2024 3:16 PM CDT Legal Sex Female 7:40 PM PRACTICE 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 Gender Identity Female 03/25/2024 3:16 PM CDT Sexual Orientation Straight 03/25/2024 3: 16 PM CDT Last Filed Vital Signs Vital Sign Reading Time Taken Comments Blood Pressure 106/66 09/30/2024 3:30 PM PRACTICE 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 Pulse 89 09/30/2024 3:30 PM PRACTICE 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 Temperature 36.1 C (97 F) 09/30/2024 3:30 PM PRACTICE 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 Respiratory Rate 18 09/30/2024 3:30 PM PRACTICE 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 Oxygen Saturation 97% 09/30/2024 3:30 PM PRACTICE 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 Inhaled Oxygen Concentration - - Weight 89.1 kg (196 lb 6.4 oz) 09/30/2024 3:30 P M PRACTICE 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 Height 167.6 cm (5' 6 ) 09/30/2024 3:30 PM PRACTICE 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 Body Mass Index 31.7 09/30/2024 3:30 PM PRACTICE 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 Plan of Treatment Upcoming Encounters Date Type Department Care Team (Late st Contact Info) Description 12/12/2024 4:00 PM CDT Office Visit [facility] - [place] [address] [address] [place], [place] [id number] Alida Klein MD [address] [place] [id number] Health Maintenance Due Date Last Done Comments Diabetes: Retinopathy Eye Exam 2003 Hepatitis B Vaccines (1 of 3 - 19+ 3-dose series) 2004 COVID-19 Vaccine ( season) 2024 07/13/2021, 12/29/2020, 12/02/2020 PHQ-2 (Physician [place]) 09/21/2024 03/23/2024 Hemoglobin A1C 03/13/2025 09/12/2024, 07/0 01/2024, 01/01/2023, Additional history exists Annual Physical 03/23/2025 03/23/2024 Kidney Health Evaluation 03/23/2025 03/23/2024 Lipid Panel 03/25/2025 03/25/2024 DTaP, Tdap and Td Vaccines (3 - Td or Tdap) 02/19/2034 02/20/2024, 11/10/2020 Hepatitis C Completed 03/25/2024 Pneumococcal Vaccine: Pediatrics (0 to 5 Years) and At-Risk Patients (6 to 64 Years) Completed 05/18/2024 Influenza Adult Completed 06/21/2024, 06/21, 07/13/2022, Additional history exists HPV Vaccines Aged Out No longer eligi ble based on patient's age to complete this topic Meningococcal B Vaccine Aged Out No l onger eligible based on patient's age to complete this topic Meningococcal Vaccine Aged Out No vannessa garbielle eligible based on patient's age to complete this topic RSV Immunizations Under 20 Months Aged Out No longer eligible based on patient's age to complete this topic Procedures Procedure Name Priority Date/Time Associated Diagnosis Comments CORONAVIRUS (COVID-19) INFLUENZA A & B ANTIGEN IA PANEL Routine 09/30/2024 Acute sinusitis, recurrence not specified, unspecified location HEMOGLOBIN, GLYCOSYLATED Routine 09/12/2024 4:42 PM PRACTICE 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 Type 2 diabetes mellitus with hyperglycemia, without long-term current use of insulin ([facility]) COMPREHENSIVE METABOLIC PANEL Routine 09/12/2024 4:42 PM PRACTICE 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 Type 2 diabetes mellitus with hyperglycemia, without long-term current use of insulin ([facility]) HEPATITIS C ANTIBODY Routine 03/25/2024 8:46 AM CDT Annual physical exam Establishing care with new doctor, encounter for General medical exam Encounter for hepatitis C screening test for low risk patient LIPID PANEL Routine 03/25/2024 8:46 AM CDT Annual physical exam Establishing care with new doctor, encounter for General medical exam Screening for hyperlipidemia from Last 3 Months or Most Recently Relevant to Health Maintenance Results * CORONAVIRUS (COVID-19) INFLUENZA A & B ANTIGEN IA PANEL (09/30/2024) CORONAVIRUS ANTIGEN IA NEGATIVE NEGATIVE [address], [place] INFLUENZA A NEGATIVE NEGATIVE [address], [place] INFLUENZA B NEGATIVE NEGATIVE MG[address], [place] Internal Control: VALID VALID [address], [place] NASAL STRUCTURE / Unknown 09/30/2024 us Alida Klein MD MICROBIOLOGY - GENERAL ORDERABLE S Final Result Performing Organization Address City/[facility]/ZIP Co de Phone Number -[phone], [place] [address] [facility] [address] [place] [address], [place] [phone] * (ABNORMAL) HEMOGLOBIN, GLYCOSYLATED (09/12/2024 4:42 PM PRACTICE 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) HGB A1C 5.4 4.5 - 6.2 % 09/12/2024 8:05 PM PRACTICE 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 [facility] ESTIMATED AVG GLUCOSE 108(H) 74 - 106 MG/DL 09/12/2024 8:05 PM PRACTICE 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 [facility] 09/12/2024 4:42 PM PRACTICE 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 Alida Klein MD LABORATORY Final Result Performing Organization Address City/[facility]/ZIP Co de Phone Number [facility] [address] [place] [address], [place] [phone] * (ABNORMAL) COMPREHENSIVE METABOLIC PANEL (09/12/2024 4:42 PM PRACTICE 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) SODIUM S/P/B 140 136 - 145 MMOL/L 09/12/2024 7:52 PM PRACTICE 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 [facility] POTASSIUM S/P/B 4.2 3.5 - 5.1 MMOL/L 09/12/2024 7:52 PM PRACTICE 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 [facility] CHLORIDE S/P/B 107 98 - 107 MMOL/L 09/12/2024 7:52 PM PRACTICE 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 [facility] CO2 30.1 21 - 32 MMOL/L 09/12/2024 7:52 PM PRACTICE 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 [facility] GLUCOSE 117(H) 70 - 99 MG/DL 09/12/2024 7:52 PM PRACTICE 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 [facility] BUN 15 7 - 18 MG/DL 09/12/2024 7:52 PM PRACTICE 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 [facility] CREATININE S/P/B 0.64 0.55 - 1.02 MG/DL 09/12/2024 7:52 PM [facility] CALCIUM S/P/B 9.0 8.4 - 10.5 MG/DL 09/12/2024 7:52 PM [facility] BILIRUBIN TOTAL S/P/B 0.2 0.2 - 1.0 MG/DL 09/12/2024 7:52 PM [facility] ALKALINE PHOSPHATASE S/P/B 54 37 - 98 U/L 09/12/2024 7:52 PM [facility] AST 23 15 - 37 U/L 09/12/2024 7:52 PM [facility] ALT 24 14 - 59 U/L 09/12/2024 7:52 PM [facility] TOTAL PROTEIN S/P/B 7.5 6.4 - 8.2 G/DL 09/12/2024 7:52 PM [facility] ALBUMIN S/P/B 3.9 3.4 - 5.0 G/DL 09/12/2024 7:52 PM [facility] ANION GAP 2.9(L) 5 - 15 MMOL/L 09/12/2024 7:52 PM [facility] Comment:REFERENCE RANGE NOT ESTABLISHED OSMOLALITY (CALC) 292 MOSM/KG 024 7:52 PM [facility] Comment:REFERENCE RANGE NOT ESTABLISHED GFR ESTIMATE >90 >90 ML/MIN/1. 73 M2 09/12/2024 7:52 PM [facility] GFR NOTES GFR REFERENCE S: 09/12/2024 7:52 PM [facility] Comment: THE ESTIMATED GFR IS CALCULATED USING THE 2020 CKD-EPI EQUATION. THE FOLLOWING CATEGORIES FOR GRADING RENAL FUNCTION ARE RECOMMENDED BY THE INTERNATIONAL SOCIETY OF NEPHROLOGY (KDIGO 2012 CLINICAL PRACTICE GUIDELINE). G1,NORMAL OR HIGH: >89 ml/min/1.73 m2 G2,MILDLY DECREASED: 60-89 ml/min/1.73 m2 G3A,MILDLY TO MODERATELY DECREASED: 45-59 ml/min/1.73 m2 G3B,MODERATELY TO SEVERELY DECREASED: 30-44 ml/min/1.73 m2 G4,SEVERELY DECREASED: 15-29 ml/min/1.73 m2 G5,KIDNEY FAILURE: <15 ml/min/1.73 m2 09/12/2024 4:42 PM PRACTICE 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 Alida Klein MD LABORATORY Final Result Performing Organization Address City/State/[facility] Co de Phone Number [facility] [address] [place] [address], * (ABNORMAL) LIPID PANEL (03/25/2024 8:46 AM CDT) CHOLESTEROL 178 <200 MG/DL 03/25/2024 2:39 PM CDT [facility] TRIGLYCERIDES 96 <150 MG/DL 03/25/2024 2:39 PM CDT [facility] HDL 52 >40 MG/DL 03/25/2024 2:39 PM CDT [facility] LDL-C 107(H) <100 MG/DL 03/25/2024 2:39 PM CDT [facility] VLDL CALCULATION 19 5 - 28 MG/DL 03/25/2024 2:39 PM CDT [facility] CHOL/HDL RATIO 3.4 0.0 - 4.0 03/25/2024 2:39 PM CDT [facility] LDL/HDL 2.1 0.41 - 2.13 03/25/2024 2:39 PM CDT [facility] NON HDL CHOLESTEROL 126 <140 MG/DL 03/25/2024 2:39 PM CDT [facility] 03/25/2024 8:46 AM CDT Alida Klein MD LABORATORY Final Result -[facility] [address] [facility] [place] [address], [place] [phone] * HEPATITIS C ANTIBODY (03/25/2024 8:46 AM CDT) HEPATITIS C AB NON-REACTI VE NON-REACT ANTOINETTE 03/25/2024 6:23 PM CDT [facility] Comment: ANTIBODIES TO HCV NOT DETECTED. DOES NOT EXCLUDE THE POSSIBILITY OF EXPOSURE TO HCV. 03/25/2024 8:4 6 AM CDT Alida Klein MD LABORATORY Final Result Performing Organization Address City/[facility] Co de Phone Number [facility] [address] [place] [address], [place] [phone] from Last 3 Months or Most Recently Relevant to Health Maintenance Insurance Care Teams Skiver Machine Relationship Specialty Start Date End Date Alida Klein MD [address] [facility] [address] [place] [id number] PCP - General INTERNAL MEDICINE 03/23/24
--- OUTSIDE RECORDS SUMMARY | 2024-11-01 11:19 | XMS_ITS | Patient Health Summary ---
Author Organization [facility] Address [address] [place] [address] Care Team Providers Care Tongue Lining Stitcher Name Role Phone Rodrigo Rizvi MD Primary Care Provider Note from [facility],non-owned Affiliates and Associated Physician Practices is amultiple site organization consisting of ambulatory clinics and hospital sitesin [place], [place], [place] and [place]. This disclosure is being madepursuant to the Care Everywhere program and may not contain all information available regarding this patient. Last updated 18.[facility] Allergies No known active allergies Medications * Be aware that medications may not be up to date on this document. Alwaysverify current medications with the patient. * acyclovir (ZOVIRAX) 400 MG tablet(Started 04/20/2018) Take 400 mg by mouth once daily * vitamin D, ergocalciferol, (DRISDOL) 36614 UNITS capsule(Started 04/20/2018) * VIENVA 0.1-20 MG-MCG tablet(Started 04/18/2018) Take 1 tablet by mouth once daily * sertraline (ZOLOFT) 50 MG tablet(Started 04/20/2018) * Aspirin (ASPIR-81 PO) Active Problems No known active problems Social History Tobacco Use Types Packs/Day Years Used Date Smoking Tobacco: Never Smokeless Tobacco: Never Alcohol Use Standard Drinks/Week Comments No 0 (1 standard drink = 0.6 oz pur e alcohol) Sex and Gender Information Value Date Recorded Sex Assigned at Female 02/12/2022 10:37 AM CDT Gender Identity Female 02/12/2022 10:37 AM CDT Sexual Orientation Straight 02/12/2022 10 :37 AM CDT Procedures * SARS-COV-2 (COVID-19) IN HOUSE(Performed 08/01/2020) Performed for Exposure to COVID-19 virus * SARS-COV2 (COVID-19) PANEL (STL)(Performed 08/01/2020) Performed for Exposure to COVID-19 virus * [place] INTRALESIONAL INJECTION(S) 7 OR LESS(Performed 06/15/2018) Performed for Hypertrophic scar * [place] INJ TRIAMCINOLON ACETONID NOS 10 MG(Performed 06/15/2018) Performed for Hypertrophic scar * [place] INTRALESIONAL INJECTION(S) 7 OR LESS(Performed 05/05/2018) Performed for Hypertrophic scar Results * SARS-COV-2 (COVID-19) IN HOUSE (08/01/2020 11:53 AM STORE MERCHANDISER) COVID-19 PCR Not detected Not detected 08/02/2020 7:30 PM STORE MERCHANDIS[facility] Microbiology SPECIMEN FROM NASOPHARYNGEAL STRUCTURE / Unknown Collection / Unknown 08/01/2020 11:53 AM STORE MERCHANDISER 08/01/2020 11:53 AM STORE MERCHANDISER Narrative [facility] - 08/02/2020 7:30 PM STORE MERCHANDISER This nucleic acid amplification assay performance was validated by [facility]. This test has been authorized by the Food and Drug administration (FDA)under an Emergency Use Authorization (EUA). This test has been validated in accordance with the FDA's guidance document Policy for Diagnostic Testing in Laboratories Certified to perform High Complexity Testing under CLIA prior to Emergency Use Authorization for Coronavirus Disease-2019 during the Public Health Emergency issued on November 19, 2019. FDA independent review of this validation is pending. This test is only authorized for the duration of time the declaration that circumstances exist justifying the authorization of emergency use of in vitro diagnostic tests for detection of SARS-CoV-2 virus and/or diagnosis of COVID-19 infection under section 564(b)(1) of the Act, 21 U.S.C 360bbb-3 (b)(1), unless the authorization is terminated or revoked sooner. Fact Sheets for this EUA assay are available upon request. Shira Díaz AUTOMATIC QUILLING MACHINE OPERATOR-HAND DEVELOPER LAB - MICR OBIOLOGY ORDERABLES [facility] [address] [place] [address], [facility] [phone] * [place] INJ TRIAMCINOLON ACETONID NOS 10 MG, [place] INTRALESIONAL INJECTION(S) 7 OR LESS (06/15/2018 12:16 PM CDT) Narrative Consuelo Ponce MD - 06/15/2018 12:16 PM CDT Bong Hobson MD 06/01/2018 1:31 PM The side effects of intralesional triamcinolone (ILK) were discussed with patient, including petechiae and purpura, local lipoatrophy, striae and pigment change. Verbal consent obtained. 0.4ml of Triamcinolone 10mg/mL was injected in to 1 lesion on central chest with 1 cc syringe and a 30 gauge needle. Patient tolerated injections well. [facility] [id number] ([id number]) [facility] [id number] (K40) Bong Hobson MD [facility] Dermatology Resident, PGY-4 Consuelo Ponce MD PROCEDURE/MINOR MITTAL RGICAL ORDERABLES * [place] INTRALESIONAL INJECTION(S) 7 OR LESS (05/05/2018 4:02 PM CDT) Consuelo Walker MD - 05/05/2018 4:02 PM CDT Bong Hobson MD 04/27/2018 5:43 PM The side effects of intralesional triamcinolone (ILK) were discussed with patient, including petechiae and purpura, local lipoatrophy, striae and pigment change. Verbal consent obtained. 0.4ml of Triamcinolone 10mg/mL was injected in to 1 lesion on central chest with 1 cc syringe and a 30 gauge needle. Patient tolerated injections well. [facility] [id number] ([id number]) [facility] [id number] (K40) Bong Hobson MD [facility] Dermatology Resident, PGY-4 Consuelo Ponce MD PROCEDURE/MINOR MITTAL RGICAL ORDERABLES Care Teams Tongue Lining Stitcher Relationship Specialty Start Date End Date Rodrigo Rizvi MD [address] [place] [phone] PCP - General 04/27/18
--- OUTSIDE RECORDS SUMMARY | 2024-11-01 11:19 | XMS_ITS | Referral Summary ---
Author Organization [facility] Address [address] [place] [address] Care Team Providers Care Copy Preparer Name Role Phone Rodrigo Rizvi MD Primary Care Provider [phone] Source Comments [facility],non-owned Affiliates and Associated Physician Practices is amultiple site organization consisting of ambulatory clinics and hospital sitesin [place], [place], [place] and [place]. This disclosure is being madepursuant to the Care Everywhere program and may not contain all information available regarding this patient. Last updated 18.[facility] Allergies No known active allergies Medications * Be aware that medications may not be up to date on this document. Alwaysverify current medications with the patient. Medication Sig Dispensed Refills Start Date End Date Status acyclovir (ZOVIRAX) 400 MG tablet Take 400 mg by mouth once daily 04/20/2018 Active vitamin D, ergocalciferol, (DRISDOL) 68097 UNITS capsule 04/20/2018 Active VIENVA 0.1-20 MG-MCG tablet Take 1 tablet by mouth once daily 04/18/2018 Active sertraline (ZOLOFT) 50 MG tablet 04/20/2018 Active Aspirin (ASPIR-81 PO) Act amilcar Active Problems No known active problems Social [...] Orientation Straight 02/12/2022 10 :37 AM CDT Plan of Treatment Not on file Care Teams Copy Preparer Relationship Specialty Start Date End Date Rodrigo Rizvi MD [address] [place] [phone] PCP - General 04/27/18
--- OUTSIDE RECORDS SUMMARY | 2024-11-01 11:19 | XMS_ITS | Clinical Summary ---
Author Organization [facility] [employer] Address [address] [place] [address] Care Team Providers Care Pick Pulling Machine Tender Name Role Phone Rodrigo Rizvi MD Primary Care Provider [phone] Source Comments [facility] [employer],non-owned Affiliates and Associated Physician Practices is amultiple site organization consisting of ambulatory clinics and hospital sitesin [place], [place], [place] and [place]. This disclosure is being madepursuant to the Care Everywhere program and may not contain all information available regarding this patient. Last updated 18.[facility] [employer] Allergies No known active allergies Medications * Be aware that medications may not be up to date on this document. Alwaysverify current medications with the patient. Medication Sig Dispensed Refills Start Date End Date Status acyclovir (ZOVIRAX) 400 MG tablet Take 400 mg by mouth once daily 04/20/2018 Active vitamin D, ergocalciferol, (DRISDOL) 23647 UNITS capsule 04/20/2018 Active VIENVA 0.1-20 MG-MCG [...] 10 :37 AM CDT Plan of Treatment Health Maintenance Due Date Last Done Comments PAP SMEAR 1985 HIV SCREENING 2000 HEPATITIS C SCREENING 03/27/2003 DTAP/TDAP/TD VACCINES (1 - Tdap) 2004 HEPATITIS B VACCINE (1 of 3 - 19+ 3-dose series) 2004 COVID-19 VACCINE ( - 2023-2 5 season) 2024 INFLUENZA VACCINE (#1) 2024 DEPRESSION SCREENING 09/21/2024 ZOSTER VACCINE (1 of 2) 2035 HIB VACCINE Aged Out No longer eligi ble based on patient's age to complete this topic HPV VACCINE Aged Out No longer eligi ble based on patient's age to complete this topic MENINGOCOCCAL (Group B) VACCINE Aged Out No longer eligible based on patient's age to complete this topic MENINGOCOCCAL VACCINE Aged Out No vannessa gabrielle eligible based on patient's age to complete this topic PNEUMOCOCCAL VACCINE Aged Out No long er eligible based on patient's age to complete this topic Care Teams Pick Pulling Machine Tender Relationship Specialty Start Date End Date Rodrigo Rizvi MD [address] [place] [phone] PCP - General 04/27/18
--- OUTSIDE RECORDS SUMMARY | 2024-11-01 11:20 | XMS_ITS | Clinical Summary ---
Author Organization [facility] Care Team Providers Care Repairer Resistance Welding Machines Name Role Phone Unavailable Primary Care Provider Unavailabl e Social History Tobacco Use Types Packs/Day Years Used Date Smoking Tobacco: Never Assessed Comments Unknown Sex and Gender Information Value Date Recorded Sex Assigned at Not on file Legal Sex Female 8:02 AM CDT Gender Identity Not on file Sexual Orientation Not on file Plan of Treatment Health Maintenance Due Date Last Done Comments Hepatitis C Virus (HCV) Screening 1985 Hepatitis B Immunization (1 of 3 - 19+ 3-dose series) 2004 Pap Smear 2006 Cervical Cancer Screening (CCS) 2015 HPV/Cotest 2015 Influenza Immunization (#1) 2024 10/0 09/2019, 06/08/2019, 06/15/2018, Additional history exists SARS-COV-2 Immunization (2023- season) 2024 12/29/2020, 12/02/2020 Respiratory Syncytial Virus (RSV) Immunization (Adult) (1 - 1-dose 75+ series) 2060 DTaP/Tdap/Td Immunization Discontinued 11/10/2020 TdaP Immunization Completed 11/10/2020 Meningococcal Immunization (ACWY) Aged Out No longer eligible based on patient's age to complete this topic Pneumococcal Immunization Combined Aged Out No longer eligible based on patient's age to complete this topic Rotavirus Immunization Aged Out No lo nger eligible based on patient's age to complete this topic
--- OUTSIDE RECORDS SUMMARY | 2024-11-01 11:20 | XMS_ITS | Encounter Summary ---
Author Organization [facility] Address [facility] [place] [address] Care Team Providers Care Lay Ups Assembler Name Role Phone Alida Klein MD Primary Care Provider [phone] Encounter Details Date Type Department Care Team (Late st Contact Info) Description 05/20/2024 MyChart Message Enc [facility] - [place] [address] [address] [place], [place] [id number] Alida Klein MD [address] [place] [address] [address] [place], [place] [id number] Lab results. Social History Tobacco Use Types Packs/Day Years Used Date Smoking Tobacco: Never Smokeless Tobacco: Never Comments:Counseled by Dr. Maria C marie. Alcohol Use Standard Drinks/Week Comments Yes 3 [...] Patient Health Questionnaire-2 Score 1 03/23/2024 Comments Unknown Sex and Gender Information Value Date Recorded Sex Assigned at Female 03/25/2024 3:16 PM CDT Legal Sex Female 7:40 PM MONTESSORI TEACHER Gender Identity Female 03/25/2024 3:16 PM CDT Sexual Orientation Straight 03/25/2024 3: 16 PM CDT documented as of this encounter Plan of Treatment Upcoming Encounters Date Type Department Care Team (Late st Contact Info) Description 12/12/2024 4:00 PM CDT Office Visit [facility] - [place] [address] [address] [place] [address] Alida Klein MD [address] [place] [address] documented as of this encounter Visit Diagnoses Not on filedocumented in this encounter Additional Health Concerns Infection Onset Date Last Indicated Resolved Time COVID-19 Rule Out 09/30/2024 09/30/2024 09/30/2024 3:56 PM MONTESSORI TEACHER documented as of this encounter Care Teams Lay Ups Assembler Relationship Specialty Start Date End Date Alida Klein MD [address] [place] [id number] PCP - General INTERNAL MEDICINE 03/23/24 documented as of this encounter
--- OUTSIDE RECORDS SUMMARY | 2024-11-01 11:20 | XMS_ITS | Encounter Summary ---
Author Organization [facility] Address [facility] [place] [address] Care Team Providers Care Slot Manager Name Role Phone Alida Klein MD Primary Care Provider [phone] Encounter Details Date Type Department Care Team (Late st Contact Info) Description 05/04/2024 MyChart Message Enc [facility] Multispecialty Care [facility] [address] [place] [address] [address] [place] [address] Alida Klein MD [address] [place] [address] [address] [place] [address] Ramón Social History Tobacco Use Types Packs/Day Years Used Date Smoking Tobacco: Never Smokeless Tobacco: Never AUDIT-C Answer Date Recorded Q1: How often [...] PM CDT 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 Gender Identity Female 03/25/2024 3:16 PM CDT Sexual Orientation Straight 03/25/2024 3: 16 PM CDT documented as of this encounter Plan of Treatment Upcoming Encounters Date Type Department Care Team (Late st Contact Info) Description 12/12/2024 4:00 PM CDT Office Visit [facility] Care - [place] [address] [address] [place] [address] Alida Klein MD [address] [address] documented as of this encounter Visit Diagnoses Not on filedocumented in this encounter Additional Health Concerns Infection Onset Date Last Indicated Resolved Time COVID-19 Rule Out 09/30/2024 09/30/2024 09/30/2024 3:56 PM DISPLAY SPECIALIST documented as of this encounter Care Teams Slot Manager Relationship Specialty Start Date End Date Alida Klein MD [address] [place] [phone] PCP - General INTERNAL MEDICINE 03/23/24 documented as of this encounter
--- OUTSIDE RECORDS SUMMARY | 2024-11-01 11:20 | XMS_ITS | Encounter Summary ---
Author Organization [facility] Address [facility] [place] [address] Care Team Providers Care Customs And Border Protection Officer Name Role Phone Alida Klein MD Primary Care Provider [phone] Encounter Details Date Type Department Care Team (Late st Contact Info) Description 10/19/2024 MyChart Message Enc [facility] Multispecialty Care - [place] [address] [place] [address] [address] [place], [place] [id number] Alida Klein MD [address] [place] [address] [address] [place] [address] Jardiance Social History Tobacco Use Types Packs/Day Years Used Date Smoking Tobacco: Never Smokeless Tobacco: Never Comments:Counseled by Dr. Maria C amrie. 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 Gender Identity Female 03/25/2024 3:16 PM CDT Sexual Orientation Straight 03/25/2024 3: 16 PM CDT documented as of this encounter Plan of Treatment Upcoming Encounters Date Type Department Care Team (Late st Contact Info) Description 12/12/2024 4:00 PM CDT Office Visit [facility] Multispecialty Care - [place] [address] [address] [place], [place] [phone] Alida Klein MD [address] [place] [phone] documented as of this encounter Visit Diagnoses Not on filedocumented in this encounter Care Teams Customs And Border Protection Officer Relationship Specialty Start Date End Date Alida Klein MD [address] [place] [phone] PCP - General INTERNAL MEDICINE 03/23/24 documented as of this encounter
--- OUTSIDE RECORDS SUMMARY | 2024-11-01 11:20 | XMS_ITS | CONTINUITY OF CARE DOCUMENT ---
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 Jordi Person Hypertension--echo ef nl, 11/2023 active Basilio Donovan MD Snoring completed - Basilio Donovan MD Sleep apnea, declines cpap active Basilio massey MD Fatigue active Basilio Donovan MD Lower extremity edema active Basilio Kramer ENCOUNTERS Date Type Provider Location Encounter Diag nosis - In-person encounter Office Visit Basilio Donovan MD [facility] - In-person encounter Office Visit Basilio Donovan MD [facility] Hypertension--echo ef nl, 11/2023 - In-person encounter Office Visit Basilio Donovan MD [facility] SnoringSleep apnea, declines cpapFatigueLower extremity edema - In-person encounter Office Visit Basilio Donovan MD [facility] - In-person encounter Office Visit Basilio Donovan MD [facility] Office VITAL SIGNS Date Observation Value Provider Body Mass Index (Ratio) 31.63 kg/m2 Bright Donovan MD blood pressure, diastolic 75 mm[Hg] Alfredo Sinha RN blood pressure, systolic 121 mm[Hg] Demetria Sinha RN oxygen saturation, oximetry 96 % Demetria Sinha RN pulse rate 75 /min Demetria Sinha RN weight E&M 196 [lb_av] Demetria Sinha RN Body Mass Index (Ratio) 35.51 kg/m2 Bright [facility] blood [facility], [facility], [facility][Hg] Ja rret blood pressure, systolic 136 mm[Hg] Jar ret pulse rate 80 /min Ab oxygen saturation, oximetry 97 % Ab respiratory rate E&M 14 /min Ab weight E&M 220 [lb_av] Ab y height E&M 66 [in_i] [facility] y Body Mass Index (Ratio) 35.51 kg/m2 Bright Donovan MD pulse rate 67 /min Pippa Lewis blood pressure, cuff size regular [facility] blood pressure, diastolic 76 mm[Hg] Fa [facility] blood pressure, systolic 124 mm[Hg] Chato Joshua oxygen saturation, oximetry 96 % Pippa Lewis respiratory rate E&M 14 /min Pippa villegas weight E&M 220 [lb_av] Pippa Lewis height E&M 66 [in_i] Pippa Lewis Body Mass Index (Ratio) 35.67 kg/m2 [place] Ny blood pressure, diastolic 88 mm[Hg] Guillermina nkLogic blood pressure, systolic 146 mm[Hg] Radha kLogic respiratory rate E&M 16 /min Lexi Dirk blood pressure, diastolic 88 mm[Hg] Sara Cavazos blood pressure, systolic 146 mm[Hg] Wale Cavazos oxygen saturation, oximetry 97 % Lexi Cavazos pulse rate 85 /min Lexi Cavazos height E&M 66 [in_i] Lexi Cavazos weight E&M 221 [lb_av] Lexi Cavazos ALLERGIES No Known Drug Allergies HISTORY OF MEDICATION USE Medication Status Instructions Dates Provider Indications Com ments Ramón 5 mg/0.5 mL pen injector active Jordi Ahmedzai Jardiance 25 mg tablet active TAKE 1 TABLET BY MOUTH EVERY DAY Jordi Ahmedzai losartan 25 mg tablet completed TAKE 1 TABLET BY MOUTH EVERY DAY - Jordi Ahmedzai Jardiance 10 mg tablet completed TAKE 1 TABLET BY MOUTH EVERY DAY - Jordi Ahmedzai losartan 25 mg tablet completed Take 1 tablet by mouth once a day TAKE 1 TABLET BY MOUTH DAILY - Ab Alonso aspirin 81 mg tablet,delayed release (DR/EC) active Take 1 tablet by mouth once a day Jordi Ahmedzai Jardiance 10 mg tablet completed Take 1 tablet by mouth once a day - Susu Redmond acyclovir 400 mg tablet active Take 1 tablet by mouth twice a day Lexi Cavazos sertraline 50 mg tablet active Take 1 1/2 tablet by mouth once a day Lexi Cavazos Vienva 0.1-20 mg-mcg tablet active Take 1 tablet by mouth once a day Lexi Cavazos ergocalciferol (vitamin D2) 1,250 mcg (50,000 unit) capsule active Take 1 capsule by mouth once a week Lexi Cavazos SOCIAL HISTORY Date Observation Value Provider personal history of marijuana use yes Jordi Deboramedzai smoking status Never smoker Jordi Ahmedzai personal history of marijuana use yes Jordi Ahmedzai smoking status Never smoker Jordi Deboramedzai personal history of marijuana use yes Pippa Lewis smoking status Never smoker Pippa Lewis social history reviewed E&M revi ewed - no changes required Jordi Russellzamikayla social history reviewed E&M revi ewed - no changes required Jordi Russellzai INSURANCE PROVIDERS Payer name Policy type / Coverage type [place] [employer] ID [employer] Other [id number] ADVANCE DIRECTIVES Name Date DISCUSSED - NO DECISION MADE TREATMENT PLAN Date Name Performer [id number],SBasilio MD [id number],WBasilio MD [id number],Basilio Saucedo MD [id number],Basilio Saucedo MD [id number],WBasilio MD [id number],S, Jordi Ahmedza i [id number],S, Jordi Ahmedza i [id number],S, Jordi Ahmedza i [id number],S, Jordi Ahmedza i [id number],S, Jordi Ahmedza i Cardiology Jordi Ahmedzai Cardiology Jordi Ahmedzai Cardiology Jordi Ahmedzai Cardiology Jordi Ahmedzai Cardiology Jordi Ahmedzai Cardiology: B P today: 121/75 P rior BP: 136/79 (12/22/2023) The following medications were removed from the medication list: Losartan 25 Mg Tablet (Losartan) ..... Take 1 tablet by mouth every day Her updated medication list for this problem includes: Aspirin 81 Mg Tablet,delayed Release (dr/ec) (Aspirin) ..... Take 1 tablet by mouth once a day [facility]: H er updated medication list for this problem includes: Losartan 25 Mg Tablet (Losartan) ..... Take 1 tablet by mouth every day Aspirin 81 Mg Tablet,delayed Release (dr/ec) (Aspirin) ..... Take 1 tablet by mouth once a day BP today: 136/79 P rior BP: 124/76 (12/01/2023) [facility]: O rders: C OMPREHENSIVE METABOLIC PANEL, W/EGFR (72913) P ROBNP, N TERMINAL (56569) C RP, high sensitivity (24862) H EMOGLOBIN A1c (496) T SH, free T4, total T3 (7444) LIPID PANEL (7600) C BC (INCLUDES DIFF/PLT) (6399) F ERRITIN (457) I GÉNESIS AND TOTAL IRON BINDING CAPACITY (7573) V itamin D, 25-Hydroxy (023182) [facility]: B P today: 124/76 P rior BP: 146/88 (07/16/2022) Her updated medication list for this problem includes: Losartan 25 Mg Tablet (Losartan) ..... Take 1 tablet by mouth every day Aspirin 81 Mg Tablet,delayed Release (dr/ec) (Aspirin) ..... Take 1 tablet by mouth once a day Orders: C omplete Echo (57086) C OMPREHENSIVE METABOLIC PANEL, W/EGFR (12621) P ROBNP, N TERMINAL (37215) C RP, high sensitivity (06377) H EMOGLOBIN A1c (496) T SH, free T4, total T3 (7444) L IPID PANEL (7600) C BC (INCLUDES DIFF/PLT) (6399) F ERRITIN (457) I GÉNESIS AND TOTAL IRON BINDING CAPACITY (7573) V itamin D, 25-Hydroxy (628462) Jordi Yvonnezai Cardiology: O rders: C OMPREHENSIVE METABOLIC PANEL, W/EGFR (52554) P ROBNP, N TERMINAL (74203) C RP, high sensitivity (57012) H EMOGLOBIN A1c (496) T SH, free T4, total T3 (7444) LIPID PANEL (7600) C BC (INCLUDES DIFF/PLT) (6399) F ERRITIN (457) I GÉNESIS AND TOTAL IRON BINDING CAPACITY (7573) V itamin D, 25-Hydroxy (587084) Jordi Russellzai Cardiology: O rders: C omplete Echo (91720) C OMPREHENSIVE METABOLIC PANEL, W/EGFR (95954) P ROBNP, N TERMINAL (78921) C RP, high sensitivity (79787) H EMOGLOBIN A1c (496) T SH, free T4, total T3 (7444) L IPID PANEL (7600) C BC (INCLUDES DIFF/PLT) (6399) F ERRITIN (457) I GÉNESIS AND TOTAL IRON BINDING CAPACITY (7573) V itamin D, 25-Hydroxy (557660) Jordi Russellzai Cardiology: O rders: C omplete Echo (91148) C OMPREHENSIVE METABOLIC PANEL, W/EGFR (03473) P ROBNP, N TERMINAL (52252) C RP, high sensitivity (16884) H EMOGLOBIN A1c (496) T SH, free T4, total T3 (7444) L IPID PANEL (7600) C BC (INCLUDES DIFF/PLT) (6399) F ERRITIN (457) I GÉNESIS AND TOTAL IRON BINDING CAPACITY (7573) V itamin D, 25-Hydroxy (127725) Jordi Person Telehealth- needs apt on Sep 09 at 11 am done Basilio Donovan MD Telehealth- needs apt on Sep 09 at 11 am done Basilio Donovan MD Telehealth- needs apt on Sep 09 at 11 am done Basilio Donovan MD Telehealth- needs apt on Sep 09 at 11 am done Basilio Donovan MD Telehealth- needs apt on Sep 09 at 11 am done Basilio Donovan MD Cardiology Jordi Ahabdullahi Cardiology Jordi Ahmedharry Cardiology Jordi Ahmedzamikayla Cardiology Jordi Ahmedzamikayla Cardiology Jordi medza Date Name Vitamin D, 25-Hydrox y IRON AND TOTAL IRON BINDING CAPACITY FERRITIN CBC (INCLUDES DIFF/P LT) LIPID PANEL TSH, free T4, total T3 HEMOGLOBIN A1c CRP, high sensitivit y PROBNP, N TERMINAL COMPREHENSIVE METABO LIC PANEL, W/EGFR Complete Echo Venous Doppler Bilat eral LE - Reflux HISTORY OF PROCEDURES Procedure Date Procedure Name Provider Procedure Notes S tatus EKG Basilio Donovan MD completed
--- OUTSIDE RECORDS SUMMARY | 2024-11-01 11:20 | XMS_ITS | Encounter Summary ---
Author Organization [facility] Address Formerly [facility], [id number] [place] [address] Care Team Providers Care Agent Licensing Clerk Name Role Phone Alida Klein MD Primary Care Provider [phone] Encounter Details Date Type Department Care Team (Late st Contact Info) Description 05/18/2024 MyChart Message Enc [facility] Multispecialty Care - [place] [address] [place] [address] [address] [place] [address] Alida Klein MD [address] [place] [address] [address] [place] [address] Lab results Social History Tobacco Use Types Packs/Day Years [...] PM CDT 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 Gender Identity Female 03/25/2024 3:16 PM CDT Sexual Orientation Straight 03/25/2024 3: 16 PM CDT documented as of this encounter Plan of Treatment Upcoming Encounters Date Type Department Care Team (Late st Contact Info) Description 12/12/2024 4:00 PM CDT Office Visit [facility] Multispecialty Care - [place] [address] [address] [place] [address] Alida Klein MD [address] [place] [phone] documented as of this encounter Visit Diagnoses Not on filedocumented in this encounter Additional Health Concerns Infection Onset Date Last Indicated Resolved Time COVID-19 Rule Out 09/30/2024 09/30/2024 09/30/2024 3:56 PM DAMPER MAKER documented as of this encounter Care Teams Agent Licensing Clerk Relationship Specialty Start Date End Date Alida Klein MD [address] [place] [phone] PCP - General INTERNAL MEDICINE 03/23/24 documented as of this encounter
--- OUTSIDE RECORDS SUMMARY | 2024-11-01 11:20 | XMS_ITS | Encounter Summary ---
Author Organization [facility] Address [facility] [place] [address] Care Team Providers Care Jordan Man Name Role Phone Alida Klein MD Primary Care Provider [phone] Encounter Details Date Type Department Care Team (Late st Contact Info) Description 05/21/2024 MyChart Message Enc [facility] Multispecialty Care - [place] [address] [place] [address] [address] [place], [place] [id number] Alida Klein MD [address] [place] [address] [address] [place] [address] STD test result Social History Tobacco Use Types Packs/Day Years [...] PM CDT Legal Sex Female 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 Gender Identity Female 03/25/2024 3:16 PM CDT Sexual Orientation Straight 03/25/2024 3: 16 PM CDT documented as of this encounter Plan of Treatment Upcoming Encounters Date Type Department Care Team (Late st Contact Info) Description 12/12/2024 4:00 PM CDT Office Visit [facility] Multispecialty Care - [place] [address] [address] [place] [address] Alida Klein MD [address] [place] [phone] documented as of this encounter Visit Diagnoses Not on filedocumented in this encounter Additional Health Concerns Infection Onset Date Last Indicated Resolved Time COVID-19 Rule Out 09/30/2024 09/30/2024 09/30/2024 3:56 PM CALL CENTER 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 documented as of this encounter Care Teams Jordan Man Relationship Specialty Start Date End Date Alida Klein MD [address] [place] [id number] PCP - General INTERNAL MEDICINE 03/23/24 documented as of this encounter
--- OUTSIDE RECORDS SUMMARY | 2024-11-01 11:20 | XMS_ITS | Data Portability ---
Author Organization [facility] Address [address] [place] [address] Care Team Providers Care Trimmer Sorter Name Role Phone MONICA PERALTA Primary Care Provider [phone] MAYA LEONARD Loan Analyst [phone] Assessment Encounter Date Assessment Date Assessment LastModified by Organization Details LastModified Time 02/24/2023 02/24/2023 Lizy CARRILLO PA-S Not available 02/24/2023 09:01:52 Plan of Treatment Reminders Order Date Submit Date Provider Last Modified By Organization Details Last Modified Time Details Appointments None recorded. Lab TSH, ultra-sens itive, serum 2022 023 [facility], [address], [place], [address], 3 10:08:59 celiac disease comprehens amilcar panel, serum 2022 023 [facility], [address], [place], [address], 3 10:08:59 food allergen panel, serum 2022 023 [facility], [address], [place], [address], 3 10:09:00 H pylori urea breath test, co2 infrared 2022 023 [facility], [address], [place], [address], 3 07:14:05 vitamin D, 25-hydroxy , total, serum 2022 023 [facility], [address], [place], [address], 3 10:09:00 HbA1c (hemoglobi n A1c), blood 2022 023 [facility] In-Office Order, Internal Use Only DO Not Attach Compendium DO Not Attach Compendium, Do Not Delete/merge, [id number] 09:41:51 CBC w/ auto diff 2022 023 [facility], [address], [place], [address], 3 17:10:12 lipid panel, serum 2022 023 [facility], [address], [place], [address], 3 17:10:10 CMP, serum or plasma 2022 023 [facility], [address], [place], [address], 3 17:10:11 vaginal pathogens panel, NELSY+probe, vaginal fluid 2022 023 [facility], [address], [place], [address], 3 06:15:09 Referral rn lactation referral 2014 015 [email or web address] Not available 5 16:57:40 Procedures None recorded. Surgeries None recorded. Imaging None recorded. Medication Orders Celexa 10 mg tablet 2014 015 [facility], [address] [place], [address], 3 14:35:59 penicillin V potassium 500 mg tablet 2014 015 [facility], [address] [facility], [place], [address], 3 14:36:13 dicyclomin e 20 mg tablet 2022 023 [facility] #[id number], [address], [place], [place], [id number], 3 09:33:06 loperamide 2 mg tablet 2022 023 [facility] #[id number], [address], [place], [place], [id number], 3 10:55:20 melatonin 5 mg tablet 2022 023 [id number], [address], [place], [place], [id number], 3 11:16:18 Patient TargetsNo targets recorded. Patient Instructions Encounter Date Encounter Id Patient Instructions Last Modified By Organization Details Last Modified Time 09/27/2014 [id number] plantar fasciitis: care instructions Not available 09/28/2014 15:35:40 plantar fasciitis: exercises Not available 09/28/2014 15:35:40 When You Want to Lose Weight: Care Instructions Not available 09/28/2014 15:35:40 learning about mood disorders Not available 09/28/2014 15:35:40 07/19/2015 [id number] I discussed with patient that this shall be her dentis' christin , but her dentis' won't do it untill a appointment on 07/30/2015, she is advisied to follow up with her dentist office as soon as she can. [email or web address] Not available 07/19/2015 10:31:55 01/01/2023 [id number] painful sex: car e instructions Not available 01/01/2023 09:28:24 A healthy lifestyle: care instructions Not available 01/01/2023 09:01:56 irritable bowel syndrome: care instructions Not available 01/01/2023 09:27:55 learning about the low fodmap diet for irritable bowel syndrome (IBS) Not available 01/01/2023 09:27:55 high-fiber diet: care instructions Not available 01/01/2023 09:27:55 diet for irritable bowel syndrome: care instructions Not available 01/01/2023 09:27:55 02/10/2023 [id number] A healthy lifestyle: care instructions Not available 02/10/2023 11:09:15 02/24/2023 [id number] A healthy lifestyle: care instructions Not available 02/24/2023 08:41:34 Reason for Referral Babbitter Referral for Plan tar fasciitis Referring Physician: Rodrigo Rizvi, Internal Medicine, Encounter Date: 09/27/2014 Results Created Date Observation Date Name Description Value Unit Range Abnormal Flag Note LastModifiedBy Organization Detail LastModifiedTime 01/02/2001/02/2023 LIPID PANEL cholesterol, total 183.9 mg/dL 140.0- 200.[address] [facility] Department [address] [place], [address], 01/02/2023 17:10:10 01/02/20 23 01/02/2023 LIPID PANEL triglyceride s 133 mg/dL <=150 Not Available [facility] Department [address] [place], [address], 01/02/2023 17:10:10 01/02/20 23 01/02/2023 LIPID PANEL HDL cholesterol 50.1 mg/dL 40.0-[address] [facility] Department [address] [place], [address], 01/02/2023 17:10:10 01/02/20 23 01/02/2023 LIPID PANEL VLDL cholesterol migdalia 26.60 mg/dL 5.00-[address] [facility] Department [address] [place], [address], 01/02/2023 17:10:10 01/02/20 23 01/02/2023 LIPID PANEL LDL chol calc ([facility]) 110.[address] [facility] Department [address] [place] [address], [address], 01/02/2023 17:10:10 01/02/20 23 01/02/2023 COMP. METAB OLIC PANEL (14) glucose 124 mg/dL 65-99 above high normal ANION GP 26.0 mmol/ L N OSMOL 278.0 mOsM/ L N REFER ENCE RANGE : 275.0 -301. [address] [facility] Department [address] [place] [address], [address], 01/02/2023 17:10:11 01/02/20 23 01/02/2023 COMP. METAB OLIC PANEL (14) BUN 16 mg/dL 8-[address] [facility] Department [address] [place] [address], [address], 01/02/2023 17:10:11 01/02/20 23 01/02/2023 COMP. METAB OLIC PANEL (14) creatinine 0.52 mg/dL 0.50-[address] [facility] Department [address] [place] [address], [address], 01/02/2023 17:10:11 01/02/20 23 01/02/2023 COMP. METAB OLIC PANEL (14) eGFR 123 mL/mi n/1.7 3 >=[address] [facility] Department [address] [place], [address], 01/02/2023 17:10:11 01/02/20 23 01/02/2023 COMP. METAB OLIC PANEL (14) BUN/creatini ne ratio 31.0 Not Available [facility] Department [address] [place], [address], 01/02/2023 17:10:11 01/02/20 23 01/02/2023 COMP. METAB OLIC PANEL (14) sodium 138.0 mmol/ L 136.0- 144.[address] [facility] Department [address] [place], [address], 01/02/2023 17:10:11 01/02/20 23 01/02/2023 COMP. METAB OLIC PANEL (14) potassium 4.6 mmol/ L 3.5-5. [address] [facility] Department [address] [place], [address], 01/02/2023 17:10:11 01/02/20 23 01/02/2023 COMP. METAB OLIC PANEL (14) chloride 102 mmol/ l 101-[address] [facility] Department [address] [place] [address], [address], 01/02/2023 17:10:11 01/02/20 23 01/02/2023 COMP. METAB OLIC PANEL (14) carbon dioxide, total 15.2 mmol/ L 21.0-3 2.0 below low normal Not Available [facility] Department [address] [place], [address], 01/02/2023 17:10:11 01/02/20 23 01/02/2023 COMP. METAB OLIC PANEL (14) calcium 9.6 mg/dL 8.2-[address] [facility] Department [address] [place] [address], [address], 01/02/2023 17:10:11 01/02/20 23 01/02/2023 COMP. METAB OLIC PANEL (14) protein, total 7.4 g/dL 6.7-8. [address] [facility] [address] [place], [address], 01/02/2023 17:10:11 01/02/20 23 01/02/2023 COMP. METAB OLIC PANEL (14) albumin 4.8 g/dL 3.5-5. [address] [facility] Department [address] [place], [address], 01/02/2023 17:10:11 01/02/20 23 01/02/2023 COMP. METAB OLIC PANEL (14) globulin, total 2.6 g/dL 1.5-4. [address] [facility] Department [address] [place], [address], 01/02/2023 17:10:11 01/02/20 23 01/02/2023 COMP. METAB OLIC PANEL (14) A/G ratio 2.0 Not Available [facility] Department [address] [place], [address], 01/02/2023 17:10:11 01/02/20 23 01/02/2023 COMP. METAB OLIC PANEL (14) bilirubin, total 0.3 mg/dL 0.0-1. [address] [facility] Department [address] [place], [address], 01/02/2023 17:10:11 01/02/20 23 01/02/2023 COMP. METAB OLIC PANEL (14) alkaline phosphatase 53.6 IU/L 42.0-[address] [facility] Department [address] [place], [address], 01/02/2023 17:10:11 01/02/20 23 01/02/2023 COMP. METAB OLIC PANEL (14) AST (SGOT) 19.7 U/L 10.0-[address] [facility] Department [address] [place], [address], 01/02/2023 17:10:11 01/02/20 23 01/02/2023 COMP. METAB OLIC PANEL (14) ALT (SGPT) 23.7 U/L 10.0-[address] [facility] Department [address] [place], [address], 01/02/2023 17:10:11 01/02/20 23 01/01/2023 CBC WITH DIFFE RENTI AL/PL ATELE T WBC 6.1 K/uL 3.4-[address] [facility] Department [address] [place], [address], 01/02/2023 17:10:11 01/02/20 23 01/01/2023 CBC WITH DIFFE RENTI AL/PL ATELE T RBC 5.1 M/uL 4.2-5. [address] [facility] [address] [place], [address], 01/02/2023 17:10:11 01/02/20 23 01/01/2023 CBC WITH DIFFE RENTI AL/PL ATELE T hemoglobin 14.9 g/dL 11.5-[address] [facility] [address] [place], [address], 01/02/2023 17:10:11 01/02/20 23 01/01/2023 CBC WITH DIFFE RENTI AL/PL ATELE T hematocrit 45.9 % 36.0-[address] [facility] [address] [place], [address], 01/02/2023 17:10:11 01/02/20 23 01/01/2023 CBC WITH DIFFE RENTI AL/PL ATELE T MCV 90 fL 80-[address] [facility] Department [address] [place], [address], 01/02/2023 17:10:11 01/02/20 23 01/01/2023 CBC WITH DIFFE RENTI AL/PL ATELE T MCH 29 pg 27-[address] [facility] [address] [place], [address], 01/02/2023 17:10:11 01/02/20 23 01/01/2023 CBC WITH DIFFE RENTI AL/PL ATELE T MCHC 33 g/dL 32-[address] [facility] [address] [place], [address], 01/02/2023 17:10:11 01/02/20 23 01/01/2023 CBC WITH DIFFE RENTI AL/PL ATELE T RDW 12.5 % 11.5-[address] [facility] [address] [place], [address], 01/02/2023 17:10:11 01/02/20 23 01/01/2023 CBC WITH DIFFE RENTI AL/PL ATELE T platelets 264 K/uL 155-37 9 MPV 10.1 FL 8.9-[address] [facility] [address] [place], [address], 01/02/2023 17:10:11 01/02/20 23 01/01/2023 CBC WITH DIFFE RENTI AL/PL ATELE T neutrophils 55.4 % 40.0-[address] [facility] Department [address] [place], [address], 01/02/2023 17:10:11 01/02/20 23 01/01/2023 CBC WITH DIFFE RENTI AL/PL ATELE T lymphs 34.6 % 14.0-[address] [facility] [address] [place], [address], 01/02/2023 17:10:11 01/02/20 23 01/01/2023 CBC WITH DIFFE RENTI AL/PL ATELE T monocytes 6.7 % 4.0-[address] [facility] Department [address] [place], [address], 01/02/2023 17:10:11 01/02/20 23 01/01/2023 CBC WITH DIFFE RENTI AL/PL ATELE T eos 1 % 0-[address] [facility] Department [address] [place], [address], 01/02/2023 17:10:11 01/02/20 23 01/01/2023 CBC WITH DIFFE RENTI AL/PL ATELE T basos 0.7 % 0.0-1. [address] [facility] Department [address] [place] [address], [address], 01/02/2023 17:10:11 01/02/20 23 01/01/2023 CBC WITH DIFFE RENTI AL/PL ATELE T neutrophils (absolute) 3.4 K/uL 1.4-7. [address] [facility] Department [address] [place] [address], [address], 01/02/2023 17:10:11 01/02/20 23 01/01/2023 CBC WITH DIFFE RENTI AL/PL ATELE T lymphs (absolute) 2.1 K/uL 0.7-3. [address] [facility] Department [address] [place] [address], [address], 01/02/2023 17:10:11 01/02/20 23 01/01/2023 CBC WITH DIFFE RENTI AL/PL ATELE T monocytes(ab solute) 0.4 K/uL 0.1-0. [address] [facility] Department [address] [place] [address], [address], 01/02/2023 17:10:11 01/02/20 23 01/01/2023 CBC WITH DIFFE RENTI AL/PL ATELE T eos (absolute) 0.1 K/uL 0.0-0. [address] [facility] Department [address] [place] [address], [address], 01/02/2023 17:10:11 01/02/20 23 01/01/2023 CBC WITH DIFFE RENTI AL/PL ATELE T baso (absolute) 0.0 K/uL 0.0-0. [address] [facility] Department [address] [place] [address], [address], 01/02/2023 17:10:11 01/02/20 23 01/01/2023 CBC WITH DIFFE RENTI AL/PL ATELE T immature granulocytes 1.3 % Not Available [facility] Department [address] [place], [address], 01/02/2023 17:10:11 01/02/20 23 01/01/2023 CBC WITH DIFFE RENTI AL/PL ATELE T immature grans (abs) 0.1 K/uL Not Available [facility] Department [address] [place], [address], 01/02/2023 17:10:11 01/02/20 23 01/01/2023 CBC WITH DIFFE RENTI AL/PL ATELE T NRBC 0 % Not Available [facility] Department [address] [place], [address], 01/02/2023 17:10:11 01/02/20 23 01/02/2023 VITAM IN D, 25-HY DROXY vitamin D, 25-hydroxy 61.2 NG/mL 30.0-1 00.0 Vitam in D defic iency has been defin ed by the Insti tute of Medic ine and an Endoc rine Socie ty pract ice guide line as a level of serum 25-OH vitam in D less than 20 ng/mL (1,2) . The Endoc [facility] ty went on to fur er defin e vitam in D insuf ficie ncy as a level betwe en 21 and 29 ng/mL (2). 1. IOM (Inst itute of Medic ine). 2010. Dieta ry refer ence fei es for calci um and D. Sisi escalante [place]: The [facility] Press . 2. Laura chen MF, Constance ey [place], Alexx off-F errar i JORDAN, et al. Evalu ation , treat ment, and preve ntion of vitam in D defic iency : an Endoc rine Socie ty clini migdalia pract ice guide line. JCEM. 2010; 96(7) :1911 -30. Not Available [facility] ([facility]) [address] [facility], [place], [address], 01/05/2023 10:09:00 01/02/20 23 01/01/2023 FOOD ALLER GY PROFI LE class description COMMEN T Level s of Speci fic IgE Class Descr iptio n of Class ----- ----- ----- ----- ----- -- ----- ----- ----- ----- ----- < 0.10 0 Negat amilcar 0.10 - 0.31 0/I Equiv ocal/ Low 0.32 - 0.55 I Low 0.56 - 1.40 II Moder ate 1.41 - 3.90 III High 3.91 - 19.00 IV Very High 19.01 - 100.0 0 V Very High >100. 00 Very High Not Available [facility] ([facility]) [address] [facility], [place], [address], 01/05/2023 10:09:00 01/02/20 23 01/05/2023 FOOD ALLER GY PROFI LE O814-HgC egg white <0.10 Not Available [facility] ([facility]) [address] [place], [address], 01/05/2023 10:09:00 01/02/20 23 01/05/2023 FOOD ALLER GY PROFI LE H537-SeV peanut <0.10 Not Available [facility] ([facility]) [address] [place], [address], 01/05/2023 10:09:00 01/02/20 23 01/05/2023 FOOD ALLER GY PROFI LE D319-GeQ soybean <0.10 Not Available [facility] ([facility]) [address] [place], [address], 01/05/2023 10:09:00 01/02/20 23 01/05/2023 FOOD ALLER GY PROFI LE G795-GgI milk <0.10 Not Available [facility] ([facility]) [address] [place], [address], 01/05/2023 10:09:00 01/02/20 23 01/05/2023 FOOD ALLER GY PROFI LE S842-KaA clam <0.10 Not Available [facility] ([facility]) [address] [place], [address], 01/05/2023 10:09:00 01/02/20 23 01/05/2023 FOOD ALLER GY PROFI LE I229-DzQ shrimp <0.10 Not Available [facility] ([facility]) [address] [place], [address], 01/05/2023 10:09:00 01/02/20 23 01/05/2023 FOOD ALLER GY PROFI LE L580-NxN walnut <0.10 Not Available [facility] ([facility]) [address] [place], [address], 01/05/2023 10:09:00 01/02/20 23 01/05/2023 FOOD ALLER GY PROFI LE O496-EeO codfish <0.10 Not Available [facility] ([facility]) [address] [place], [address], 01/05/2023 10:09:00 01/02/20 23 01/05/2023 FOOD ALLER GY PROFI LE J359-FoI scallop <0.10 Not Available [facility] ([facility]) [address] [place], [address], 01/05/2023 10:09:00 01/02/20 23 01/05/2023 FOOD ALLER GY PROFI LE X983-MjH wheat <0.10 Not Available [facility] ([facility]) [address] [place], [address], 01/05/2023 10:09:00 01/02/20 23 01/05/2023 FOOD ALLER GY PROFI LE L348-XpK corn <0.10 Not Available [facility] ([facility]) [address] [facility], [place], [address], 01/05/2023 10:09:00 01/02/20 23 01/05/2023 FOOD ALLER GY PROFI LE P865-ZcY sesame seed <0.10 Not Available [facility] ([facility]) [address] [facility], [place], [address], 01/05/2023 10:09:00 01/02/20 23 01/02/2023 TSH RFX ON ABNOR MAL TO FREE T4 TSH 1.030 uIU/m L 0.450- 4.500 Not Available [facility] ([facility]) [address] [facility], [place], [address], 01/05/2023 10:08:59 01/02/20 23 01/02/2023 WALESKA C DISEA SE PANEL endomysial antibody IgA NEGATI VE negati ve Not Available [facility] ([facility]) [address] [facility], [place], [address], 01/05/2023 10:08:58 01/02/20 23 01/02/2023 WALESKA C DISEA SE PANEL T-transgluta minase (ttg) IgA <2 U/mL 0-3 Negat amilcar 0 - 3 Weak Posit amilcar 4 - 10 Posit amilcar >10 Tissu e Trans gluta renato e (tTG) has been ident ified as the endom ysial antig en. Studi es have demon str- ated that endom ysial IgA antib odies have over 99% speci ficit y for glute n sensi tive enter opath y. Not Available [facility] ([facility]) [address] [place], [address], 01/05/2023 10:08:58 01/02/20 23 01/02/2023 WLAESKA C DISEA SE PANEL immunoglobul in A, qn, serum 174 mg/dL 87-352 Not Available [facility] ([facility]) [address] [facility], [place], [address], 01/05/2023 10:08:58 01/02/20 23 01/01/2023 HbA1c (hemo globi n A1c), blood HbA1c 6.3 Not Available In-Office Order Internal Use Only DO Not Attach Compendium DO Not Attach Compendium, Do Not Delete/merge, [id number] 01/01/2023 08:50:48 01/07/2001/08/2023 H PYLOR I BREAT H TEST H pylori breath test NEGATI VE negati ve Not Available [facility] ([facility]) [address] [facility], [place], [address], 01/08/2023 07:14:05 02/25/20 23 02/25/2023 NUSWA B VAGIN ITIS PLUS (VG+) atopobium vaginae Low - 0 score Not Available [facility] ([facility]) [address] [place], [address], 02/26/2023 06:15:09 02/25/20 23 02/25/2023 NUSWA B VAGIN ITIS PLUS (VG+) bvab 2 Low - 0 score Not Available [facility] ([facility]) [address] [place], [address], 02/26/2023 06:15:09 02/25/20 23 02/25/2023 NUSWA B VAGIN ITIS PLUS (VG+) megasphaera 1 Low - 0 score Calcu late total score by mariaelena g the 3 indiv idual bacte rial vagin osis (BV) marke r score s toget her. Total score is inter prete d as follo ws: Total score 0-1: Indic ates the absen ce of BV. Total score 2: Indet ermin ate for BV. Addit ional clini migdalia data shoul d be evalu ated to estab spencer a diagn osis. Total score 3-6: Indic ates the prese nce of BV. This test was chang moore and its perfo rmanc e mikayla cteri stics deter mined by [facility]. It has not been clear ed or appro ganesh by the Food and Drug Admin istra tion. Not Available [facility] ([facility]) [address] [place], [address], 02/26/2023 06:15:09 02/25/20 23 02/25/2023 NUSWA B VAGIN ITIS PLUS (VG+) bryson albicans, NELSY Negati ve negati ve Not Available [facility] ([facility]) [address] [place], [address], 02/26/2023 06:15:09 02/25/20 23 02/25/2023 NUSWA B VAGIN ITIS PLUS (VG+) bryson glabrata, NELSY Negati ve negati ve Not Available [facility] ([facility]) [address] [place], [address], 02/26/2023 06:15:09 02/25/20 23 02/26/2023 NUSWA B VAGIN ITIS PLUS (VG+) trich vag by NELSY Negati ve negati ve Not Available [facility] ([facility]) [address] [place], [address], 02/26/2023 06:15:09 02/25/20 23 02/26/2023 NUSWA B VAGIN ITIS PLUS (VG+) chlamydia trachomatis, NELSY Negati ve negati ve Not Available [facility] ([facility]) [address] [place], [address], 02/26/2023 06:15:09 02/25/20 23 02/26/2023 NUSWA B VAGIN ITIS PLUS (VG+) neisseria gonorrhoeae, NELSY Negati ve negati ve Not Available [facility] ([facility]) [address], [place], [address], 02/26/2023 06:15:09 11/25/19 17 imagi ng/di agnos tic resul t No observ ation record ed. [facility] (Imaging) [address] [facility], [place], [address], 01/01/2023 12:38:49 08/21/20 17 XR, chest , 2 view No observ ation record ed. Not Available 2022 12:38:49 08/11/20 22 08/11/2022 imagi ng inter preta tion No observ ation record ed. [facility] [address], [place], [address], 01/01/2023 12:38:48 08/11/20 22 08/11/2022 imagi ng inter preta tion No observ ation record ed. [facility] [address], [place], [address], 01/01/2023 12:38:48 02/27/20 23 09/24/2022 US, pelvi s, trans abdom inal + trans vagin al No observ ation record ed. [facility] [address], [place], [address], 03/04/2023 13:36:54 12/16/19 24 12/16/2023 US, duple x, venou s, lower extre mity No observ ation record ed. [facility] [address], [place], [address], 12/18/2023 10:39:34 12/16/19 24 12/16/2023 trans -thor acic echoc ardio gram (TTE) (PROC ) No observ ation record ed. [email or web address] [facility] [address], [place], [address], 12/17/2023 16:10:03 03/07/20 24 03/07/2024 CT, abdom en + pelvi s, w/ contr ast No observ ation record ed. [facility] [address], [place], [address], 03/14/2024 08:49:28 Result Notes None recorded. 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, bioproseth ic valve SHERLYN LIVINGSTON Attn: Accounting ,[address] [facility], [place], [address] , [facility] 3 08:54:57 Impaired glucose tolerance 5401658 Active 2022 SHERLYN LIVINGSTON Attn: Accounting ,[address] [facility], [place], [address] , [facility] 3 08:55:46 Essential hypertens ion 90253541 Active 2022 SHERLYN LIVINGSTON Attn: Accounting ,[address] [facility], [place], [address] , [facility] 08:56:02 Celluliti s of face 354717985 Active Not Available [facility] 14:21:59 Depressiv e disorder 36327752 Active Not Available [facility] 14:21:59 Plantar fasciitis 092791469 Active Not Available [facility] 14:21:59 Obesity 995783659 Active Not Available [facility] 14:21:59 Problem Notes None recorded. Procedures Surgical History Date Name Laterality Status Provider Name and Address Organization Details Recorded Time 01/08/20 24 Total hysterectomy completed MADHAV LOPEZ PA-C Attn: Accounting, [address] , [place], [address], [place] [facility] 01/13/2024 12:11:59 07/10/20 22 Date of Last Pap Smear completed Roxana Cavazos MA [place] [facility] 01/01/2023 08:35:43 09/21/19 10 Cholecystectomy completed Madhav Lopez [facility] 09/27/19 15:57:35 09/21/18 90 Tonsillectomy completed Madhav Lopez [facility] 09/27/2014 15:57:35 09/21/18 86 Heart Surgery completed Madhav Lopez [facility] 09/27/2014 15:57:35 Imaging Results Imaging Date Name Status LastModified by Organization Details LastModified Time 11/24/2016 imaging/diagnostic result completed [facility] (Imaging) [address] [place], [address], 01/01/2023 12:38:49 08/21/2017 XR, chest, 2 view completed Informa tion not available 01/01/2023 12:38:49 08/11/2022 imaging interpretation completed [facility] [address], [place], [address], 01/01/2023 12:38:48 08/11/2022 imaging interpretation completed [facility] [address], [place], [address], 01/01/2023 12:38:48 09/24/2022 US, pelvis, transabdominal + transvaginal completed [facility] [address], [place], [address], 03/04/2023 13:36:54 12/16/2023 US, duplex, venous, lower extremity completed [email or web address] [address], [place], [address], 12/18/2023 10:39:34 12/16/2023 trans-thoracic echocardiogram (TTE) (PROC) completed [email or web address] [facility] [address], [place], [address], 12/17/2023 16:10:03 03/07/2024 CT, abdomen + pelvis, w/ contrast completed [email or web address], [place], [address], 03/14/2024 08:49:28 Procedure Notes None recorded. Medical Equipment None Reported. Allergies No known drug allergies Medications Name Sig Start Date Stop Date Status Note LastModified by Organization Details LastModified Time binaxnow cov kit home sade 01/01 completed Not Available Not Available Not Available flowflex kit test 01/01 completed Not Available Not Available Not Available [facility] 2-pk kit covid-19 02/24 completed Not Available Not Available Not Available amoxicillin 500 mg capsule TAKE 1 CAPSULE BY MOUTH TWICE DAILY 02/10 completed Not Available Not Available Not Available Celexa 10 mg tablet Take one tablet by mouth daily 12/31 completed Not Available Not Available Not Available citalopram 40 mg tablet one tablet daily 12/31 completed Not Available Not Available Not Available loperamide 2 mg capsule TAKE 1 TABLET BY MOUTH FOUR TIMES DAILY AFTER EACH LOOSE STOOL NEEDED FOR 30 DAYS. active Not Available Not Available No t Available azithromyci n 250 mg tablet TAKE 2 TABLETS BY MOUTH FOR 1 DAY THEN TAKE 1 TABLET BY MOUTH DAILY FOR 4 DAYS 01/01 completed Not Available Not Available Not Available fluconazole 150 mg tablet TAKE 1 TABLET BY MOUTH NOW AND 1 TABLET AT THE END OF ANTIBIOTI C 01/01 completed Not Available Not Available Not Available penicillin V potassium 500 mg tablet Take 1 tablet every 8 hours by oral route for 10 days. 12/31 completed Not Available Not Available Not Available acyclovir 400 mg tablet TAKE 1 TABLET BY MOUTH TWICE DAILY active Not Available Not Available No t Available famotidine 20 mg tablet Take 1 tablet twice a day by oral route. active Not Available Not Available No t Available dicyclomine 20 mg tablet TAKE 1 TABLET BY MOUTH FOUR TIMES DAILY DIRECTED active Not Available Not Available No t Available losartan 25 mg tablet TAKE 1 TABLET BY MOUTH EVERY DAY active Not Available Not Available No t Available ergocalcife rol (vitamin D2) 1,250 mcg (50,000 unit) capsule TAKE 1 CAPSULE BY MOUTH EVERY WEEK active Not Available Not Available No t Available fluticasone propionate 50 mcg/actuati on nasal spray,suspe nsion SHAKE LIQUID AND USE 2 SPRAYS IN EACH NOSTRIL DAILY 01/01 completed Not Available Not Available Not Available sertraline 50 mg tablet TAKE 1 AND 1/2 TABLETS BY MOUTH EVERY DAY active Not Available Not Available No t Available medroxyprog esterone 150 mg/mL intramuscul ar suspension 12/31 completed Not Available Not Available Not Available loratadine 10 mg tablet TAKE 1 TABLET BY MOUTH DAILY 01/01 completed Not Available Not Available Not Available nitrofurant oin monohydrate /macrocryst als 100 mg capsule TAKE 1 CAPSULE BY MOUTH TWICE DAILY 01/01 completed Not Available Not Available Not Available Lutera (28) 0.1 mg-20 mcg tablet TAKE 1 TABLET BY MOUTH ONCE DAILY SKIP PLACEBOS active Not Available Not Available No t Available melatonin 5 mg tablet Take 2 tablets every day by oral route at bedtime for 30 days. 2022 active Not Available Not Available Not Avai lable Jardiance 10 mg tablet TAKE 1 TABLET BY MOUTH EVERY DAY 12/23 completed Not Available Not Available Not Available Jardiance 25 mg tablet Take 1 tablet every day by oral route. active Not Available Not Available No t Available BinaxNOW COVID-19 Ag Self Test kit TEST DIRECTED TODAY 01/01 completed Not Available Not Available Not Available aspirin 81 mg capsule Take 1 capsule every day by oral route. active Not Available Not Available No t Available Vitals Date Recorded Body weight Oxygen saturation Oxygen saturation in Arterial blood by Pulse oximetry Body height Body temperature Heart rate Body mass index (BMI) Systolic blood pressure Diastolic blood pressure Provider Name and Address Organization Details Last Updated DateTime 5 29154.6 32440 g 98 % 98 % 167.64 cm 98.6 [degF] 72 /min 31.1 kg/m2 98 mm[Hg] 52 mm[Hg] Nithin Bo MA [facility] 5 10:01:26 Date Recorded Body height Body mass index (BMI) Body weight Heart rate Body temperature Oxygen saturation Oxygen saturation in Arterial blood by Pulse oximetry Systolic blood pressure Diastolic blood pressure Provider Name and Address Organization Details Last Updated DateTime 3 167.64 cm 34.9 kg/m2 29879.9 5 g 83 /min 98.6 [degF] 96 % 96 % 102 mm[Hg] 60 mm[Hg] Roxana Cavazos MA [facility] 3 08:33:30 Date Recorded Body height Body mass index (BMI) Body weight Heart rate Body temperature Oxygen saturation Oxygen saturation in Arterial blood by Pulse oximetry Systolic blood pressure Diastolic blood pressure Provider Name and Address Organization Details Last Updated DateTime 3 167.64 cm 34.9 kg/m2 29174.7 5 g 79 /min 98.7 [degF] 98 % 98 % 120 mm[Hg] 80 mm[Hg] Roxana VELMA Cavazos [facility] 3 10:39:07 Date Recorded Respiratory rate Body weight Heart rate Body mass index (BMI) Body height Body temperature Systolic blood pressure Diastolic blood pressure Provider Name and Address Organization Details Last Updated DateTime 5 16 /min 63455.7 98009 g 72 /min 31.2 kg/m2 167.64 cm 98.1 [degF] 110 mm[Hg] 60 mm[Hg] Madhav Lopez [facility] 5 15:57:35 Date Recorded Body height Body mass index (BMI) Body weight Heart rate Oxygen saturation Oxygen saturation in Arterial blood by Pulse oximetry Systolic blood pressure Diastolic blood pressure Provider Name and Address Organization Details Last Updated DateTime 3 167.64 cm 34.9 kg/m2 40716.7 5 g 83 /min 96 % 96 % 102 mm[Hg] 70 mm[Hg] Maegan Beltrán [facility] 3 08:31:17 Social History Question Answer Notes LastModified by Organizat ion Details LastModified Time Tobacco Smoking Status Never Smoker Madhav matthews [place] [facility] 09/27/2014 15:57:35 Do You Have An Advance Directive? No Information n ot available 09/27/2014 What Is Your Level Of Alcohol Consumption? Occasional Information not available 01/01/2023 What Is Your Level Of Caffeine Consumption? Heavy Information not available 09/27/2014 How Much Tobacco Do You Chew? None Information not available 09/27/2014 In The 14 Days Before Symptom Onset, Have You Had Close Contact With A Laboratory-confirm ed COVID-19 While That Case Was Ill? No Information n ot available 01/01/2023 In The 14 Days Before Symptom Onset, Have You Had Close Contact With A Person Who Is Under Investigation For COVID-19 While That Person Was Ill? No Information not available 01/01/2023 Have You Been To An Area Known To Be High Risk For COVID-19? No Information not available 01/01/2023 Are You Currently Employed? Yes Information not available 01/01/2023 What Type Of Diet Are You Following? REGULAR Information n ot available 09/27/2014 Education 12 Information no t available 09/27/2014 Are There Any Guns Present In Your Home? No Information not available 09/27/2014 Hard Of Hearing Or Deaf In One Or Both Ears? No Information not available 09/27/2014 Legally Blind In One Or Both Eyes? No Information no t available 09/27/2014 Marital Status Single Informatio n not available 09/27/2014 What Was The Date Of Your Most Recent Tobacco Screening? 02/24/2023 Information not available 02/24/2023 Performs Monthly Self-breast Exam? No Information no t available 09/27/2014 What Is Your Relationship Status? Single Information not available 01/01/2023 Seat Belts Used Routinely Yes Information not available 09/27/2014 Are You Sexually Active? Yes Information not available 01/01/2023 Smoke Alarm In Home Yes Information not available 09/27/2014 Do You Have Smoke And Carbon Monoxide Detectors In Your Home? Yes Information not available 01/01/2023 Are You Passively Exposed To Smoke? No Information no t available 01/01/2023 How Much Tobacco Do You Smoke? No Information not available 09/27/2014 General Stress Level Medium Information not available 09/27/2014 Do You Use Any Illicit Or Recreational Drugs? No Information not available 01/01/2023 Do You Use Sunscreen Routinely? No Information not available 09/27/2014 Has Tobacco Cessation Counseling Been Provided? Yes Information not available 02/24/2023 On What Date Was Tobacco Cessation Counseling Provided? 02/24/2023 Information not available 02/24/2023 Sex: Female Functional Status Question Answer Note LastModified by Organization D etails LastModified Time What is your exercise level? None Information not available 09/27/2014 Mental Status None recorded. Family History Relationship Description Onset Age of this Age Resolved Age Notes LastModified by Organization Details LastModified Time Mother Asthma Not available 15:57:35 Mother Hypertensive disorder Not available 2014 15:57:35 Father Alcohol abuse Not available 2014 15:57:35 Father Diabetes mellitus Not available 2014 15:57:35 Father Diabetes mellitus Not available 2014 15:57:35 Sister Malignant tumor of ovary Not available 2014 15:57:35 Medical History Condition Response Coronary Artery Disease N Other N Atrial Fibrillation N High Blood Pressure N Depression N COPD N Blood Clots N Anxiety Disorder Y Muscle, Joint, or Bone Problems N Acid Reflux (GERD) Y Cancer N Stroke N High Cholesterol N Liver Disease N Headaches N Kidney or Bladder Problems N Thyroid Problems N GI Problems N Skin Problems N Anemia N Heart Attack (NE) N Diabetes N Seizures/Epilepsy Y Asthma N Allergies N Hepatitis N Heart Failure N Osteoporosis N Gynecological History Statement/Question Response Menses Monthly N Date of Last Pap Smear 07/10/2022 Age at Menarche 13 Current Control Method BCPs Age at First Child 19 Obstetrics History GPAL:G 2 P 2 0 0 2 Type Value Full Term 2 Living 2 Total 2 Immunizations Vaccine Type Date Status Note Provider Nam e and Address Organization Details Recorded Time Influenza, split virus, quadrivalent, preservative 0 completed JESSICA Enamorado, [facility] 11/27/2020 09:34:58 Influenza, split virus, quadrivalent, PF 9 completed Rubina Mendoza LPN byron, [facility] 11/27/2020 09:34:58 Past Encounters Encounter ID Performer Location Encounter Start Date Encounter Closed Date Diagnosis/Indication Diagnosis SNOMED-CT Code Diagnosis ICD10 Code Diagnosis Note [id number] Marco (Adult Med) [address] [place] [id number] 09/27/2014 15:37:48 09/27/2014 17:22:46 Depressive disorder 19448395 Plantar fasciitis 753357974 Obesity [id number] MD Marco Cuba (Adult Med) [address] [place] [address] 07/19/2015 09:45:41 07/19/2015 13:01:23 Cellulitis of face 008124386 L03.036 [id number] SHERLYN LIVINGSTON (Adult Med) [address] [place] [phone] 01/01/2023 08:19:10 01/01/2023 14:57:36 Essential hypertension 62742826 I10 BP Today: 102/60c/w losartan 25 mg, prescribed by Cardiology Discussed DASH dietAdvise d 30 minutes of exercise minimum dailyAdvis ed tobacco, alcohol, caffeine all increase BPAdvised goal for BP is <140/90Con tact office if BP is > 140/90 consistent lydiscusse d consequenc es of HTN including kidney, eye, heart damage, stroke, and even RTC 6 months for BP check Depressive disorder 3548 9007 F32.A Stable. PHQ-2 negative in office today.Nia griffith sertraline 75 mg QD. Being prescribed by OBGYNc/w sertraline Obesity 155126139 E66.9 BMI 34.9 today- Patient given handouts on healthy lifestyle and diet Impaired g lucose tolerance 1553256 R73.03 Last A1C: 6.3 today (01/01/2023 )Current Therapy: Jardiance 10 mgOnly hx of pre-diabet es but discussed possible diagnosis of T2DM if HgbA1c is still 6.3 on medication . Pt was counseled on low carbohydra te diet to better manage diabetes. We went discussed pt's diet at length and I made specific dietary recommenda tions. I also encouraged regular exercise of 30-60 minutes most days of the week. Pt was encouraged to get yearly diabetic eye exams as well. - c/w jardiance and lifestyle changes- Ordered CBC, CMP, Lipid panel, and A1c today Irritable bowel syndrome with diarrhea 209943830 K58.0 Patient presenting with abdominal pain almost every time she eats followed by loose stools over the last year. The pain resolves immediatel y after she defecates. Left-sided abdominal pain that she describes as crampy and dull. Rates pain 4/10. No pain at rest. She is having 2-3 bowel movements per day with some days being more. - Ordered Food allergy profile, H. pylori breath test, celiac disease panel, TSH reflex to FT4- Start dicyclomin e 20 mg QID for 30 days- Start loperamide 2 mg QID prn- Patient given handouts on irritable bowel syndrome care, diet for IBS, and high fiber diet Vitamin D deficiency 347 74257 E55.9 Vit. D prescribed by her OBGYN- Check Vit. D levels Dyspareunia 82627468 N94 .10 Patient c/o Dyspareuni a x > 6 months. Was following with OBGYN and they couldn't find a cause of the patient's symptoms. Had Pelvic US in Jul. Cysts seen on ovaries. Another US in September 2022. Prior to this the patient has never had pain with sex. She only has pain with sex. - Obtain records of previous workup by OBGYN- Patient given handouts on painful sex [id number] SHERLYN LIVINGSTON (Adult Med) [address] [place] [address] 02/10/2023 10:30:40 02/11/2023 14:04:34 Irritable bowel syndrome with diarrhea 996757785 K58.0 States her abdominal pain and loose stools have greatly improved since last visit with the use of dicyclomin e and loperamide . The abdominal pain has completely resolved. Denies any food allergies, nausea, vomiting, blood in the stool, or fatty stools - c/w dicyclomin e 20 mg QID for 30 days- c/w loperamide 2 mg QID prn- Patient given handouts on irritable bowel syndrome care, diet for IBS, and high fiber diet Dyspareunia 67811672 N94 .10 Patient c/o Dyspareuni a x > 6 months. Was following with OBGYN and they couldn't find a cause of the patient's symptoms. Had Pelvic US in Jul. Cysts seen on ovaries. Another US in September 2022. Prior to this the patient has never had pain with sex. She only has pain with sex. Wondering if we ever got results from her OBGYN. - request sent at last visit but none received, will request again- encouraged patient she can f/u with me for pelvic exam to look for other causes- Obtain records of previous workup by OBGYN- Patient given handouts on painful sex Obesity 417296542 E66.9 BMI 34.9 today- Patient given handouts on healthy lifestyle and diet Memory impairment 971913 006 R41.3 Complainin g of forgetfuln ess and short term memory issues for a few years. For example I will go to the store and just completely forget what it is that I am supposed to buy or will forget important ingredient s . Works daily, not a super stressful job but keeps her busy. Admits to increased stress at home and possible inattentio n when others are talking at times. Admits to issues sleeping at night.- most likely multi-fact orial due to stress, inattentio n, lack of sleep, etc.- plan to keep close eye on it, consider CT scan of brain next with hx of seizures and migraines Insomnia 599081372 G47.0 0 Issues sleeping at night, my daughter was sneaking a boy in at night for the last year so since I found out, I now have a hard time sleeping . Has smoked marijuana in the past to help her sleep but stopped because she didn't know if that was making her memory worse or not.- has not tried melatonin, discussed safety of this supplement , can try this to help at night- has moved her daughter upstairs now too so hoping that helps with trusting her Chronic in terstitial cystitis 027769767 N30.10 Diagnosed with IC by her OBGYN, admits to bladder pain after drinking certain types of liquids and with holding her bladder for long periods of time- continue without tx for now- could be playing role in pelvic pain? Depression screening 171 072417 Z13.31 PHQ 10/30 was negative in office today (0 out of 27) [id number] SHERLYN LIVINGSTON (Adult Med) [facility] [place] [address] 02/24/2023 08:23:49 02/25/2023 11:58:09 Dyspareunia 52420167 N94.10 Patient c/o Dyspareuni a x > 6 months. Was following with OBGYN and they couldn't find a cause of the patient's symptoms. Had Pelvic US in Jul. Cysts seen on ovaries. Another US in September 2022 that was completely normal, no cysts. Prior to this the patient has never had pain with sex. She only has pain with sex, worse with some specific positions. Requesting records for US in Sep and past Pap results. History of abnormal paps and + HPV. Same partner for the last 6+ years. Sharp pain 02/24/23: Pelvic exam completed today - discharge in vaginal canal and around cervix; cervical ectropion present - request sent at last, one US received but not the most recent, will request again- Obtain records of previous workup by OBGYN- Swab completed during pelvic exam; patient will be called with results when available Obesity 249059444 E66.9 BMI 34.9 today- Patient given handouts on healthy lifestyle and diet Health Concerns Section Related Observation LastModified by Organization Detai ls LastModified Time None Recorded Concern Status LastModified by Organization Details LastModified Time None Recorded Advance Directives Directive N: Payers Encounter Date Sequence Insurance Name Policy Number Policy Barton Covered Member ID Barton Member ID Guarantor Name 09/27/2014 1 [place] [employer] [facility] - DOS PRIOR TO 2021 (MEDICAID REPLACEMENT - HMO) Destini Skinner [id number] Destini Skinner 07/19/2015 1 [facility] (MEDICAID HMO) [id number] Detsini Skinner [id number] Destini Tavaresallo 01/01/2023 1 [place] [id number] Destini Skinner [id number] Destini Skinner 01/01/2023 2 [facility] (MEDICAID REPLACEMENT - HMO) [id number] Destini Skinner [id number] Destini Tavaresallo 02/10/2023 1 [place] [id number] Destini Skinner [id number] Destini Guerlineo 02/10/2023 2 [facility] (MEDICAID REPLACEMENT - HMO) [id number] Destini Skinner [id number] Destini Cunhao 02/24/2023 1 [place] [id number] Destini Skinner [id number] Destini Chaitanyaallo 02/24/2023 2 [facility] (MEDICAID REPLACEMENT - [facility]) [id number] Destini Skinner [id number] Destini Skinner Notes Date Note Type Note Provider Name and Address Organization Details Recorded Time 07/19/2015 text/html broken tooth.Can not a appointment to see her dentist untill next month. 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 Patient on Jardiance for pre-diabetes. A1c 6.3% in the office. Following with cardiology for pulmonary valve stenosis and on losartan and ASA 81mg. C/o abdominal pain almost every time she eats followed by loose stools over the last year. The pain resolves immediately after she defecates. Left-sided abdominal pain that she describes as crampy and dull. Rates pain 4/10. No pain at rest. She is having 2-3 bowel movements per day with some days being more. 5. Notes ingestion and takes daily famotidine. Mild decreased appetite, gas, and burping. Denies any food allergies, nausea, vomiting, blood in the stool, or fatty stool. C/o Dyspareunia x > 6 months. Was following with OBGYN and they couldn't find a cause of the patient's symptoms. Had Pelvic US in Jul. Cysts seen on ovaries. Another US in September 2022. Prior to this the patient has never had pain with sex. She only has pain with sex. Denies fever, chills, nausea, vomiting, headaches, chest pain, SOB, abdominal pain, constipation, or dysuria. 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 States her abdominal pain and loose stools have greatly improved since last visit with the use of dicyclomine and loperamide. The abdominal pain has completely resolved. Denies any food allergies, nausea, vomiting, blood in the stool, or fatty stool. C/o Dyspareunia x > 6 months. Was following with OBGYN and they couldn't find a cause of the patient's symptoms. Had Pelvic US in Jul. Cysts seen on ovaries. Another US in September 2022. Prior to this the patient has never had pain with sex. She only has pain with sex. Wondering if we ever got results from her OBGYN. Complaining of forgetfulness and short term memory issues for a few years. For example I will go to the store and just completely forget what it is that I am supposed to buy or will forget important ingredients . Works daily, not a super stressful job but keeps her busy. Admits to increased stress at home and possible inattention when others are talking at times. Issues sleeping at night, my daughter was sneaking a boy in at night for the last year so since I found out, I now have a hard time sleeping . Has smoked marijuana in the past to help her sleep but stopped because she didn't know if that was making her memory worse or not. Admits to intermittent migraines for many years. Denies vision changes, ringing in the ears, ataxia, or other neurological complaints. Denies fever, chills, nausea, vomiting, chest pain, SOB, abdominal pain, constipation, or dysuria. SHERLYN LIVINGSTON Attn: [address]ing[address] [facility], [place], [address], [facility] 02/10/2023 15:15:00 02/24/2023 text/html 37 y/o female presents to the office for a pelvic exam due to having pelvic pain during intercourse for the last ~6 months. She has a history of abnormal paps with + HPV, last pap was June of 2022. She has been on OCP for many years (>10+) and had IUD that was embedded in her uterus that was removed in 2004. Denies fever, chills, nausea, vomiting, vaginal discharge, vaginal lesions, dysuria, urinary frequency, and hematuria. SHERLYN LIVINGSTON Attn: [address]ing[address] [facility], [place], [address], [facility] 02/24/2023 13:51:39 OBGyn Episode No OBEpisode recorded.
== END 2024-11-01 10:16 | disposition home or self-care (01) ==
PROVIDERS: PCP Internal Medicine; Visit Provider Obstetrics & Gynecology
DX: N63.20 Unspecified lump in the left breast, unspecified quadrant (principal); R92.8 Other abnormal and inconclusive findings on diagnostic imaging of breast
CPT/HCPCS: 76642; 77062; 77066; G0279

== ENCOUNTER 2024-11-14 11:17 | Emergency (ER) | payer OTHER, SELFPAY ==
--- NOTE | ~2024-11-14 | XR_ITS ---
CHEST RADIOGRAPH CLINICAL HISTORY: cough . COMPARISON: 08/18/2017 TECHNIQUE: Single portable view of the chest. FINDINGS Sternal wires and mediastinal clips are identified, the wires are midline and intact. Prosthetic valve in the pulmonary position. The remainder of the cardiomediastinal silhouette is otherwise unremarkable. The lungs are clear. IMPRESSION: No focal infiltrate or effusion. Reviewed, dictated and finalized at location A. CLE GLASS TECHNICIAN
[2024-11-14 11:54] VITALS: BP 114/67; PULSE 87; RESP 18; TEMP 36.6; O2SAT 100
--- OUTSIDE RECORDS SUMMARY | 2024-11-14 13:11 | XMS_ITS | Patient Health Summary ---
Author Organization [facility] Address [address] [place] [address] Care Team Providers Care Systems Software Manager Name Role Phone Rodrigo Rizvi MD Primary Care Provider [phone] Note from [facility],non-owned Affiliates and Associated Physician Practices is amultiple site organization consisting of ambulatory clinics and hospital sitesin [place], [place], [place] and [place]. This disclosure is being madepursuant to the Care Everywhere program and may not contain all information available regarding this patient. Last updated 18.[facility] Allergies No known active allergies Medications * Be aware that medications may not be up to date on this document. Alwaysverify current medications with the patient. * acyclovir (ZOVIRAX) 400 MG tablet(Started 04/20/2018) Take 400 mg by mouth once daily * vitamin D, ergocalciferol, (DRISDOL) 58732 UNITS capsule(Started 04/20/2018) * VIENVA 0.1-20 MG-MCG [...] Performed for Exposure to COVID-19 virus * ND INTRALESIONAL INJECTION(S) 7 OR LESS(Performed 06/15/2018) Performed for Hypertrophic scar * ND INJ TRIAMCINOLON ACETONID NOS 10 MG(Performed 06/15/2018) Performed for Hypertrophic scar * ND INTRALESIONAL INJECTION(S) 7 OR LESS(Performed 05/05/2018) Performed for Hypertrophic scar Results * SARS-COV-2 (COVID-19) IN HOUSE (08/01/2020 11:53 AM PLUMBER) COVID-19 PCR Not detected Not detected 08/02/2020 7:30 PM PLUMBER [facility] Microbiology SPECIMEN FROM NASOPHARYNGEAL STRUCTURE / Unknown Collection / Unknown 08/01/2020 11:53 AM PLUMBER 08/01/2020 11:53 AM PLUMBER Narrative [facility] - 08/02/2020 7:30 PM PLUMBER This nucleic acid amplification assay performance was validated by [facility]. This test has been authorized [...] assay are available upon request. Shira Díaz SENIOR INTERACTIVE PRODUCER-TAX EXAMINER LAB - MICR OBIOLOGY ORDERABLES [facility] MICRO[facility] [address] [place] [address], [facility] [phone] * ND INJ TRIAMCINOLON ACETONID NOS 10 MG, ND INTRALESIONAL INJECTION(S) 7 OR LESS (06/15/2018 12:16 [...] 30 gauge needle. Patient tolerated injections well. [facility] [id number] (K10) [facility] [id number] (K40) Bong Hobson MD [facility] Dermatology Resident, PGY-4 Consuelo Ponce MD PROCEDURE/MINOR MITTAL RGICAL ORDERABLES * ND INTRALESIONAL INJECTION(S) 7 OR LESS (05/05/2018 4:02 [...] 30 gauge needle. Patient tolerated injections well. [facility] [id number] (K10) [facility] [id number] (K40) Bong Hobson MD [facility] Dermatology Resident, PGY-4 Consuelo Ponce MD PROCEDURE/MINOR MITTAL RGICAL ORDERABLES Care Teams Systems Software Manager Relationship Specialty Start Date End Date Rodrigo Rizvi MD [address] [place] [phone] PCP - General 04/27/18
--- OUTSIDE RECORDS SUMMARY | 2024-11-14 13:11 | XMS_ITS | Clinical Summary ---
Author Organization [facility] Care Team Providers Care Plate [place] Hand Name Role Phone Unavailable Primary Care Provider [...]
--- OUTSIDE RECORDS SUMMARY | 2024-11-14 13:11 | XMS_ITS | CONTINUITY OF CARE DOCUMENT ---
Author Name sarahluis eduardo sarahluis eduardo Address Unknown Organization [facility] Address [address] [place] [address] Phone [phone] Care Team Providers Care Corporate Director Of Human Resources Name Role Phone Zion TYLER, Basilio Unavailable Alida Klein MD Unavailable [phone] Alida Klein MD Unavailable [phone] PROBLEMS Condition Status Date Provider Notes Obesity [...] In-person encounter Office Visit Basilio Donovan MD [facility] - In-person encounter Office Visit Basilio Donovan MD [facility] Hypertension--echo ef nl, 11/2023 - In-person encounter Office Visit Basilio Donovan MD [facility] SnoringSleep apnea, declines cpapFatigueLower extremity edema - In-person encounter Office Visit Basilio Donovan MD [facility] - In-person encounter Office Visit Basilio Donovan MD [facility] Office VITAL SIGNS Date Observation Value Provider [...] Donovan MD blood pressure, cuff size [facility], diastolic 79 mm[Hg] Ja rret blood pressure, systolic 136 mm[Hg] Jar ret pulse rate 80 /min Ab oxygen saturation, oximetry 97 % Ab respiratory rate E&M 14 /min Ab weight E&M 220 [lb_av] Ab y height E&M 66 [in_i] [facility] y Body Mass Index (Ratio) 35.51 kg/m2 Bright Donovan MD pulse rate 67 /min Pippa Lewis blood pressure, cuff size regular [facility] blood pressure, diastolic 76 mm[Hg] Fa [facility] blood pressure, systolic 124 mm[Hg] Chato Joshua [...] Payer name Policy type / Coverage type [place] red green party ID UHC Other [id number] ADVANCE DIRECTIVES Name Date DISCUSSED - NO DECISION MADE TREATMENT PLAN Date Name Performer [id number],SBasilio MD [id number],WBasilio MD [id number],Basilio Saucedo MD [id number],Basilio Saucedo MD [id number],WBasilio MD [id number],S, Jordi Ahmedza i [id number],S, Jordi Ahmedza i [id number],S, Jordi Ahmedza i [id number],S, Jordi Ahmedza i [id number],S, Jordi Ahmedza i Cardiology [facility] [...] 1 tablet by mouth once a day [facility]: H er updated medication list for this problem includes: Losartan 25 Mg Tablet (Losartan) ..... Take 1 tablet by mouth every day Aspirin 81 Mg Tablet,delayed Release (dr/ec) (Aspirin) ..... Take 1 tablet by mouth once a day BP today: 136/79 P rior BP: 124/76 (12/01/2023) [facility]: O rders: C OMPREHENSIVE METABOLIC PANEL, W/EGFR (40077) P ROBNP, N TERMINAL (34302) C RP, high sensitivity (60802) H EMOGLOBIN A1c (496) T SH, free T4, total T3 (7444) LIPID PANEL (7600) C BC (INCLUDES DIFF/PLT) (6399) F ERRITIN (457) I GÉNESIS AND TOTAL IRON BINDING CAPACITY (7573) V itamin D, 25-Hydroxy (383885) [facility]: B P today: 124/76 P rior BP: 146/88 (07/16/2022) Her updated medication list for this problem includes: Losartan 25 Mg Tablet (Losartan) ..... Take 1 tablet by mouth every day Aspirin 81 Mg Tablet,delayed Release (dr/ec) (Aspirin) ..... Take 1 tablet by mouth once a day Orders: C omplete Echo (87948) C OMPREHENSIVE METABOLIC PANEL, W/EGFR (66069) P ROBNP, N TERMINAL (15790) C RP, high sensitivity (48030) H EMOGLOBIN A1c (496) T SH, free T4, total T3 (7444) L IPID PANEL (7600) C BC (INCLUDES DIFF/PLT) (6399) F ERRITIN (457) I GÉNESIS AND TOTAL IRON BINDING CAPACITY (7573) V itamin D, 25-Hydroxy (876247) [facility] Card[facility]: O rders: C OMPREHENSIVE METABOLIC PANEL, W/EGFR (92873) P ROBNP, N TERMINAL (03479) C RP, high sensitivity (03661) H EMOGLOBIN A1c (496) T SH, free T4, total T3 (7444) LIPID PANEL (7600) C BC (INCLUDES DIFF/PLT) (6399) F ERRITIN (457) I GÉNESIS AND TOTAL IRON BINDING CAPACITY (7573) V itamin D, 25-Hydroxy (269823) [facility] Cardiology: O rders: C omplete Echo (87498) C OMPREHENSIVE METABOLIC PANEL, W/EGFR (86684) P ROBNP, N TERMINAL (72573) C RP, high sensitivity (98914) H EMOGLOBIN A1c (496) T SH, free T4, total T3 (7444) L IPID PANEL (7600) C BC (INCLUDES DIFF/PLT) (6399) F ERRITIN (457) I GÉNESIS AND TOTAL IRON BINDING CAPACITY (7573) V itamin D, 25-Hydroxy (458907) [facility] Cardiology: O rders: C omplete Echo (36454) C OMPREHENSIVE METABOLIC PANEL, W/EGFR (18065) P ROBNP, N TERMINAL (17325) C RP, high sensitivity (46939) H EMOGLOBIN A1c (496) T SH, free T4, total T3 (7444) L IPID PANEL (7600) C BC (INCLUDES DIFF/PLT) (6399) F ERRITIN (457) I GÉNESIS AND TOTAL IRON BINDING CAPACITY (7573) V itamin D, 25-Hydroxy (248177) Jordi Person Telehealth- needs apt on Sep [...]
--- OUTSIDE RECORDS SUMMARY | 2024-11-14 13:11 | XMS_ITS | Clinical Summary ---
Author Organization [facility] Address [address] [place] [address] Care Team Providers Care Special Needs Librarian Name Role Phone Alida Klein MD Primary Care Provider [phone] Allergies No known active allergies Medications acyclovir [...] hyperglycemia, without long-term current use of insulin ([facility]) Take 1 tablet (25 mg total) by mouth daily. 90 tablet 1 4 10/19/19 25 Discontinue d(Other- Please enter comment in Notes field) Active Problems Problem Noted Date Diagnosed Date Pelvic floor dysfunction 05/18/2024 Overview (05/18/2024): On physical therapy ANTHONY (generalized anxiety disorder) 03/23/2024 Herpes simplex 03/23/2024 Mixed stress and urge urinary incontinence 03/23 Primary hypertension 03/23/2024 Class 2 severe obesity due t o excess calories with serious comorbidity and body mass index (BMI) of 35.0 to 35.9 in adult ([facility]) 03/23/2024 NANCY (obstructive sleep apnea) 03/23/2024 Type 2 diabetes mellitus wit h hyperglycemia, without long-term current use of insulin ([facility]) 12/21/2020 Nonrheumatic pulmonary valve stenosis 12/14/2018 Encounters Date Type Department Care Team Description 11/01/2024 Scan Monitor HEALTH INFO SRVCS Scanned, Doc Med Group Mammogram (SCAN); Ultrasound (SCAN) 11/01/2024 [facility]phone [facility] [place] [address] [address] [place] [address] Alida Klein MD Follow Up Call 10/19/2024 Orders Only [facility] [address] [facility] [address] [place] [address] Alida Klein MD 10/19/2024 MyChart Message Enc [facility] Multispecialty [facility] [address] [place] [address] Alida Klein MD Jardiance 09/30/2024 3:40 PM CUSTOMER SECURITY CLERK Office Visit [facility] [place] [address] [place] [address] Alida Klein MD Cough (Started 2 days ago. ) 09/30/2024 Travel 09/12/2024 4:00 PM CUSTOMER SECURITY CLERK Office Visit [facility] [place] [address] [place] [address] Alida Klein MD Follow Up; Hypertension; Diabetes [...] PM CDT Legal Sex Female 7:40 PM CUSTOMER SECURITY CLERK Gender Identity Female 03/25/2024 3:16 PM CDT Sexual Orientation Straight 03/25/2024 3: 16 PM CDT Last Filed Vital Signs Vital Sign Reading Time Taken Comments Blood Pressure 106/66 09/30/2024 3:30 PM CUSTOMER SECURITY CLERK Pulse 89 09/30/2024 3:30 PM CUSTOMER SECURITY CLERK Temperature 36.1 C (97 F) 09/30/2024 3:30 PM CUSTOMER SECURITY CLERK Respiratory Rate 18 09/30/2024 3:30 PM CUSTOMER SECURITY CLERK Oxygen Saturation 97% 09/30/2024 3:30 PM CUSTOMER SECURITY CLERK Inhaled Oxygen Concentration - - Weight 89.1 kg (196 lb 6.4 oz) 09/30/2024 3:30 P M CUSTOMER SECURITY CLERK Height 167.6 cm (5' 6 ) 09/30/2024 3:30 PM CUSTOMER SECURITY CLERK Body Mass Index 31.7 09/30/2024 3:30 PM CUSTOMER SECURITY CLERK Plan of Treatment Upcoming Encounters Date Type Department Care Team (Late st Contact Info) Description 12/12/2024 4:00 PM CDT Office Visit [facility] Medical Group Multispecialty Care - [place] [address] [address] [place] [address] [place] [address] [place] [address] [address] [place] [address] Health Maintenance Due Date Last Done Comments Diabetes: Retinopathy Eye Exam 2003 Hepatitis B Vaccines (1 of 3 - 19+ 3-dose series) 2004 COVID-19 Vaccine ( season) 2024 07/13/2021, 12/29/2020, 12/02/2020 PHQ-2 (Physician [place]) 09/21/2024 03/23/2024 Hemoglobin A1C 03/13/2025 09/12/2024, 07/0 [...] topic Meningococcal Vaccine Aged Out No vannessa gabrielle eligible based on patient's age to complete this topic RSV Immunizations Under 20 Months Aged Out No longer eligible based on patient's age to complete this topic Procedures Procedure Name Priority Date/Time Associated Diagnosis Comments MAMMOGRAM GENERIC (SCAN ORDER) 11/01/2024 ULTRASOUND GENERIC (SCAN ORDER) 11/01/2024 CORONAVIRUS (COVID-19) INFLUENZA A & B ANTIGEN IA PANEL Routine 09/30/2024 Acute sinusitis, recurrence not specified, unspecified location HEMOGLOBIN, GLYCOSYLATED Routine 09/12/2024 4:42 PM CUSTOMER SECURITY CLERK Type 2 diabetes mellitus with hyperglycemia, without long-term current use of insulin ([facility]) COMPREHENSIVE METABOLIC PANEL Routine 09/12/2024 4:42 PM CUSTOMER SECURITY CLERK Type 2 diabetes mellitus with hyperglycemia, without long-term current use of insulin ([facility]) HEPATITIS C ANTIBODY Routine 03/25/2024 8:46 [...] Recently Relevant to Health Maintenance Results * MAMMOGRAM GENERIC (SCAN ORDER) (11/01/2024) Anatomical Region Laterality Modality Other 11/01/2024 us Doc Med Group Scanned SCANNING Final Resu lt * ULTRASOUND GENERIC (SCAN ORDER) (11/01/2024) Anatomical Region Laterality Modality Other 11/01/2024 Doc Med Group Scanned SCANNING Final Resu lt * CORONAVIRUS (COVID-19) INFLUENZA A & B ANTIGEN IA PANEL (09/30/2024) CORONAVIRUS ANTIGEN IA NEGATIVE NEGATIVE -[address], [place] INFLUENZA A NEGATIVE NEGATIVE [address] [place] INFLUENZA B NEGATIVE NEGATIVE MG[address], [place] Internal Control: VALID VALID [address] [place] NASAL STRUCTURE / Unknown 09/30/2024 Alida Klein MD MICROBIOLOGY - GENERAL ORDERABLE S Final Result [address], [place] [address] [place] [address], [place] [phone] * (ABNORMAL) HEMOGLOBIN, GLYCOSYLATED (09/12/2024 4:42 PM CUSTOMER SECURITY CLERK) HGB A1C 5.4 4.5 - 6.2 % 09/12/2024 8:05 PM CUSTOMER SECURITY CLERK [facility] ESTIMATED AVG GLUCOSE 108(H) 74 - 106 MG/DL 09/12/2024 8:05 PM CUSTOMER SECURITY CLERK [facility] 09/12/2024 4:42 PM CUSTOMER SECURITY CLERK Alida Klein MD LABORATORY Final Result [facility] [address] [place] [address], [place] [phone] * (ABNORMAL) COMPREHENSIVE METABOLIC PANEL (09/12/2024 4:42 PM CUSTOMER SECURITY CLERK) SODIUM S/P/B 140 136 - 145 MMOL/L 09/12/2024 7:52 PM [facility] POTASSIUM S/P/B 4.2 3.5 - 5.1 MMOL/L 09/12/2024 7:52 PM [facility] CHLORIDE S/P/B 107 98 - 107 MMOL/L 09/12/2024 7:52 PM [facility] CO2 30.1 21 - 32 MMOL/L 09/12/2024 7:52 PM [facility] GLUCOSE 117(H) 70 - 99 MG/DL 09/12/2024 7:52 PM [facility] BUN 15 7 - 18 MG/DL 09/12/2024 7:52 PM [facility] CREATININE S/P/B 0.64 0.55 - 1.02 MG/DL 09/12/2024 7:52 PM [facility] CALCIUM S/P/B 9.0 8.4 - 10.5 MG/DL 09/12/2024 7:52 PM [facility] BILIRUBIN TOTAL S/P/B 0.2 0.2 - 1.0 MG/DL 09/12/2024 7:52 PM [facility] ALKALINE PHOSPHATASE S/P/B 54 37 - 98 U/L 09/12/2024 7:52 PM [facility] AST 23 15 - 37 U/L 09/12/2024 7:52 PM [facility] ALT 24 14 - 59 U/L 09/12/2024 7:52 PM [facility] TOTAL PROTEIN S/P/B 7.5 6.4 - 8.2 G/DL 09/12/2024 7:52 PM [facility] ALBUMIN S/P/B 3.9 3.4 - 5.0 G/DL 09/12/2024 7:52 PM [facility] ANION GAP 2.9(L) 5 - 15 MMOL/L 09/12/2024 7:52 PM [facility] Comment:REFERENCE RANGE NOT ESTABLISHED OSMOLALITY (CALC) 292 MOSM/KG 024 7:52 PM CUSTOMER SECURITY CLERK [facility] Comment:REFERENCE RANGE NOT ESTABLISHED GFR ESTIMATE >90 >90 ML/MIN/1. 73 M2 09/12/2024 7:52 PM CUSTOMER SECURITY CLERK [facility] GFR NOTES GFR REFERENCE S: 09/12/2024 7:52 PM CUSTOMER SECURITY CLERK [facility] Comment: THE ESTIMATED GFR IS CALCULATED USING [...] FAILURE: <15 ml/min/1.73 m2 09/12/2024 4:42 PM CUSTOMER SECURITY CLERK Alida Klein MD LABORATORY Final Result [facility] [address] [place] [address], * (ABNORMAL) LIPID PANEL (03/25/2024 8:46 AM CDT) CHOLESTEROL 178 <200 MG/DL 03/25/2024 2:39 PM CDT [facility] TRIGLYCERIDES 96 <150 MG/DL 03/25/2024 2:39 PM CDT [facility] HDL 52 >40 MG/DL 03/25/2024 2:39 PM CDT [facility] LDL-C 107(H) <100 MG/DL 03/25/2024 2:39 PM CDT [facility] VLDL CALCULATION 19 5 - 28 MG/DL 03/25/2024 2:39 PM CDT [facility] CHOL/HDL RATIO 3.4 0.0 - 4.0 03/25/2024 2:39 PM CDT [facility] LDL/HDL 2.1 0.41 - 2.13 03/25/2024 2:39 PM CDT [facility] NON HDL CHOLESTEROL 126 <140 MG/DL 03/25/2024 2:39 PM CDT [facility] 03/25/2024 8:46 AM CDT us Alida Klein MD LABORATORY Final Result Performing Organization Address City/[facility]/ZIP Co de Phone Number [facility] [address] [place] [address], [place] [phone] * HEPATITIS C ANTIBODY (03/25/2024 8:46 AM CDT) HEPATITIS C AB NON-REACTI VE NON-REACT ANTOINETTE 03/25/2024 6:23 PM CDT [facility] Comment: ANTIBODIES TO HCV NOT DETECTED. DOES NOT EXCLUDE THE POSSIBILITY OF EXPOSURE TO HCV. 03/25/2024 8:46 AM CDT us Alida Klein MD LABORATORY Final Result [facility] [address] [place] [address], [place] [phone] [id number] from Last 3 Months or Most Recently Relevant to Health Maintenance Insurance [facility] Care Teams Special Needs Librarian Relationship Specialty Start Date End Date Alida Klein MD [facility] [address] PCP - General INTERNAL MEDICINE 03/23/24
--- OUTSIDE RECORDS SUMMARY | 2024-11-14 13:11 | XMS_ITS | Encounter Summary ---
Author Organization [facility] Address [facility] [place] [address] Care Team Providers Care Laundry Operator Name Role Phone Alida Klein MD Primary Care Provider Encounter Details Date Type Department Care Team (Late st Contact Info) Description 05/04/2024 MyChart Message Enc [facility] Medical Group Multispecialty Care [facility] [address] [place] [address] [address] [place] [address] Alida Klein MD [address] [place] [address] [address] [place] [address] Ramón Social History Tobacco Use Types Packs/Day [...] PM CDT Legal Sex Female 7:40 PM FREIGHT SOLICITOR Gender Identity Female 03/25/2024 3:16 PM CDT Sexual Orientation Straight 03/25/2024 3: 16 PM CDT documented as of this encounter Plan of Treatment Upcoming Encounters Date Type Department Care Team (Late st Contact Info) Description 12/12/2024 4:00 PM CDT Office Visit [facility] Medical Group Multispecialty Care [place] [address] [address] [place] [address] Alida Klein MD [address] [address] documented as of this encounter Visit Diagnoses Not on filedocumented in this encounter Additional Health Concerns Infection Onset Date Last Indicated Resolved Time COVID-19 Rule Out 09/30/2024 09/30/2024 09/30/2024 3:56 PM FREIGHT SOLICITOR documented as of this encounter Care Teams Laundry Operator Relationship Specialty Start Date End Date Alida Klein MD [address] [place] [id number] PCP - General INTERNAL MEDICINE 03/23/24 documented as of this encounter
--- OUTSIDE RECORDS SUMMARY | 2024-11-14 13:11 | XMS_ITS | Encounter Summary ---
Author Organization [facility] Address [facility] [place] [address] Care Team Providers Care Hotel Desk Clerk Name Role Phone Alida Klein MD Primary Care Provider [phone] Encounter Details Date Type Department Care Team (Late st Contact Info) Description 10/19/2024 MyChart Message Enc [facility] Medical Group Multispecialty Care - [place] [address] [address] [place], [place] [id number] Alida Klein MD [address] [place] [address] [address] [place] [address] Jardiance Social History Tobacco Use Types Packs/Day [...] PM CDT Legal Sex Female 7:40 PM HYDROCHLORIC ACID OPERATOR Gender Identity Female 03/25/2024 3:16 PM CDT Sexual Orientation Straight 03/25/2024 3: 16 PM CDT documented as of this encounter Plan of Treatment Upcoming Encounters Date Type Department Care Team (Late st Contact Info) Description 12/12/2024 4:00 PM CDT Office Visit [facility] Medical Group Multispecialty Care - [place] [address] [address] [place], [place] [phone] Alida Klein MD [address] [place] [address] [id number] documented as of this encounter Visit Diagnoses Not on filedocumented in this encounter Care Teams Hotel Desk Clerk Relationship Specialty Start Date End Date Alida Klein MD [address] [place] [address] [id number] PCP - General INTERNAL MEDICINE 03/23/24 documented as of this encounter
--- OUTSIDE RECORDS SUMMARY | 2024-11-14 13:11 | XMS_ITS | Clinical Summary ---
Author Organization [facility] Address [address] [place] [address] Care Team Providers Care Underpresser Hand Name Role Phone Rodrigo Rizvi MD Primary Care Provider Source Comments [facility],non-owned Affiliates and Associated Physician Practices is amultiple site organization consisting of ambulatory clinics and hospital sitesin [place], [place], [place] and [place]. This disclosure is being madepursuant to the Care Everywhere program and may not contain all information available regarding this patient. Last updated 18.[facility] Allergies No known active allergies Medications * Be aware that medications may not be up to date on this document. Alwaysverify current medications with the patient. Medication Sig Dispensed Refills Start Date End Date Status acyclovir (ZOVIRAX) 400 MG tablet Take 400 mg by mouth once daily 04/20/2018 Active vitamin D, ergocalciferol, (DRISDOL) 55078 UNITS capsule 04/20/2018 Active VIENVA 0.1-20 MG-MCG [...] age to complete this topic Care Teams Underpresser Hand Relationship Specialty Start Date End Date Rodrigo Rizvi MD [address] [place] [id number] PCP - General 04/27/18
--- OUTSIDE RECORDS SUMMARY | 2024-11-14 13:11 | XMS_ITS | Referral Summary ---
Author Organization [facility] [employer] Address [address] [place] [address] Care Team Providers Care Fast Food Cashier Name Role Phone Rodrigo Rizvi MD Primary Care Provider [phone] Source Comments [facility] [employer],non-owned Affiliates and Associated Physician Practices is amultiple site organization consisting of ambulatory clinics and hospital sitesin [place], [place], [place] and [place]. This disclosure is being madepursuant to the Care Everywhere program and may not contain all information available regarding this patient. Last updated 18.[facility] [employer] Allergies No known active allergies Medications * Be aware that medications may not be up to date on this document. Alwaysverify current medications with the patient. Medication Sig Dispensed Refills Start Date End Date Status acyclovir (ZOVIRAX) 400 MG tablet Take 400 mg by mouth once daily 04/20/2018 Active vitamin D, ergocalciferol, (DRISDOL) 78073 UNITS capsule 04/20/2018 Active VIENVA 0.1-20 MG-MCG [...] of Treatment Not on file Care Teams Fast Food Cashier Relationship Specialty Start Date End Date Rodrigo Rizvi MD [address] [place] [phone] PCP - General 04/27/18
--- OUTSIDE RECORDS SUMMARY | 2024-11-14 13:11 | XMS_ITS | Encounter Summary ---
Author Organization [facility] Address [facility] [place] [address] Care Team Providers Care Lead Applier Name Role Phone Alida Klein MD Primary Care Provider [phone] Encounter Details Date Type Department Care Team (Late st Contact Info) Description 05/21/2024 MyChart Message Enc [facility] - [place] [address] [place] [address] [address] [place], [place] [id number] Alida Klein MD [address] [place] [address] [address] [place] [address] STD test result Social History Tobacco Use [...] PM CDT Legal Sex Female 7:40 PM ADJUNCT FACULTY MATHEMATICS DEPARTMENT Gender Identity Female 03/25/2024 3:16 PM CDT Sexual Orientation Straight 03/25/2024 3: 16 PM CDT documented as of this encounter Plan of Treatment Upcoming Encounters Date Type Department Care Team (Late st Contact Info) Description 12/12/2024 4:00 PM CDT Office Visit [facility] - [place] [address] [address] [place] [address] Alida Klein MD [address] [place] [id number] documented as of this encounter Visit Diagnoses Not on filedocumented in this encounter Additional Health Concerns Infection Onset Date Last Indicated Resolved Time COVID-19 Rule Out 09/30/2024 09/30/2024 09/30/2024 3:56 PM ADJUNCT FACULTY MATHEMATICS DEPARTMENT documented as of this encounter Care Teams Lead Applier Relationship Specialty Start Date End Date Alida Klein MD [address] [place] [id number] PCP - General INTERNAL MEDICINE 03/23/24 documented as of this encounter
--- OUTSIDE RECORDS SUMMARY | 2024-11-14 13:11 | XMS_ITS | Encounter Summary ---
Author Organization [facility] Address [facility] [place] [address] Care Team Providers Care Water Treatment Plant Repairer Name Role Phone Alida Klein MD Primary Care Provider [phone] Encounter Details Date Type Department Care Team (Late st Contact Info) Description 05/20/2024 MyChart Message Enc [facility] Multispecialty Care - [place] [address] [address] [place], [place] [phone] Alida Klein MD [address] [place] [address] [address] [place], [place] [id number] Lab results. 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 Sex Female 7:40 PM CONCRETE SMOOTHER Gender Identity Female 03/25/2024 3:16 PM CDT Sexual Orientation Straight 03/25/2024 3: 16 PM CDT documented as of this encounter Plan of Treatment Upcoming Encounters Date Type Department Care Team (Late st Contact Info) Description 12/12/2024 4:00 PM CDT Office Visit [facility]pecial[facility] - [place] [address] [address] [place] [address] Alida Klein MD [address] [place] [phone] documented as of this encounter Visit Diagnoses Not on filedocumented in this encounter Additional Health Concerns Infection Onset Date Last Indicated Resolved Time COVID-19 Rule Out 09/30/2024 09/30/2024 09/30/2024 3:56 PM CONCRETE SMOOTHER documented as of this encounter Care Teams Water Treatment Plant Repairer Relationship Specialty Start Date End Date Alida Klein MD [address] [place] [phone] PCP - General INTERNAL MEDICINE 03/23/24 documented as of this encounter
--- OUTSIDE RECORDS SUMMARY | 2024-11-14 13:11 | XMS_ITS | Data Portability ---
Author Organization [facility] Address [address] [place] [address] Care Team Providers Care Director Report Name Role Phone MONICA PERALTA Primary Care Provider [phone] MAYA LEONARD [employer]er [employer] [phone] Assessment Encounter Date Assessment Date Assessment LastModified by Organization Details LastModified Time 02/24/2023 02/24/2023 Lizy CARRILLO PA-S Not available 02/24/2023 09:01:52 Plan of Treatment Reminders Order Date Submit Date Provider Last Modified By Organization Details Last Modified Time Details Appointments None recorded. Lab vaginal pathogens panel, NELSY+probe, vaginal fluid 2022 023 [facility] [address], [place], [address], 3 06:15:09 TSH, ultra-sens itive, serum 2022 023 [facility], [address], [place], [address], 3 10:08:59 celiac disease comprehens amilcar panel, serum 2022 023 [facility], [address], [place], [address], 3 10:08:59 food allergen panel, serum 2022 023 [facility], [address], [place], [address], 3 10:09:00 H pylori urea breath test, co2 infrared 2022 023 [facility], [address], [place], [address], 3 07:14:05 vitamin D, 25-hydroxy , total, serum 2022 023 [facility], [address], [place], [address], 3 10:09:00 HbA1c (hemoglobi n A1c), blood 2022 023 [facility] In-Office Order, Internal Use Only DO Not Attach Compendium DO Not Attach Compendium, Do Not Delete/merge, [id number] 09:41:51 CBC w/ auto diff 2022 023 [facility], [address], [place], [address], 3 17:10:12 lipid panel, serum 2022 023 [facility], [address], [place], [address], 3 17:10:10 CMP, serum or plasma 2022 023 [facility], [address], [place], [address], 3 17:10:11 Referral endoscopic technician referral 2014 015 [email or web address] Not available 5 16:57:40 Procedures None recorded. Surgeries None recorded. Imaging None recorded. Medication Orders melatonin 5 mg tablet 2022 023 [id number], [address], [place], [place], [id number], 11:16:18 dicyclomin e 20 mg tablet 2022 023 [facility] #[id number], [address], [place], [place], [id number], 3 09:33:06 loperamide 2 mg tablet 2022 023 [facility] #[id number], [address] , [place], [place], [id number], 3 10:55:20 penicillin V potassium 500 mg tablet 2014 015 [facility], [address] [place] [address], [address], 3 14:36:13 Celexa 10 mg tablet 2014 015 [facility]61, [address] [place] [address], [address], 3 14:35:59 Patient TargetsNo targets recorded. Patient Instructions Encounter Date Encounter Id Patient Instructions Last Modified By Organization Details Last Modified Time 09/27/2014 [id number] plantar fasciitis: care instructions Not available 09/28/2014 15:35:40 plantar fasciitis: exercises Not available 09/28/2014 15:35:40 When You Want to Lose Weight: Care Instructions Not available 09/28/2014 15:35:40 learning about mood disorders Not available 09/28/2014 15:35:40 07/19/2015 [id number] I discussed with patient that this shall be her dentis' christin , but her dentis' won't do it untill a appointment on 07/30/2015, she is advisied to follow up with her dentist office as soon as she can. [email or web address] Not available 07/19/2015 10:31:55 01/01/2023 [id number] painful sex: car e instructions Not available 01/01/2023 09:28:24 A healthy lifestyle: care instructions Not available 01/01/2023 09:01:56 irritable bowel syndrome: care instructions Not available 01/01/2023 09:27:55 learning about the low fodmap diet for irritable bowel syndrome (IBS) Not available 01/01/2023 09:27:55 high-fiber diet: care instructions Not available 01/01/2023 09:27:55 diet for irritable bowel syndrome: care instructions Not available 01/01/2023 09:27:55 02/10/2023 [id number] A healthy lifestyle: care instructions Not available 02/10/2023 11:09:15 02/24/2023 [id number] A healthy lifestyle: care instructions Not available 02/24/2023 08:41:34 Reason for Referral [employer] Referral for Plan tar fasciitis Referring Physician: Rodrigo Rizvi, Internal Medicine, Encounter Date: 09/27/2014 Results Created Date Observation Date Name Description Value Unit Range Abnormal Flag Note LastModifiedBy Organization Detail LastModifiedTime 01/02/2001/02/2023 LIPID PANEL cholesterol, total 183.9 mg/dL 140.0- 200.0 Not Available [facility] [address] [place], [address], 01/02/2023 17:10:10 01/02/20 23 01/02/2023 LIPID PANEL triglyceride s 133 mg/dL <=150 Not Available [facility] Department [address] [place], [address], 01/02/2023 17:10:10 01/02/20 23 01/02/2023 LIPID PANEL HDL cholesterol 50.1 mg/dL 40.0-1 00.0 Not Available [facility] [address] [place], [address], 01/02/2023 17:10:10 01/02/20 23 01/02/2023 LIPID PANEL VLDL cholesterol migdalia 26.60 mg/dL 5.00-4 0.00 Not Available [facility] Department [address] [place], [address], 01/02/2023 17:10:10 01/02/20 23 01/02/2023 LIPID PANEL LDL chol calc ([facility]) 110.2 Not Available [facility] Department [address] [place] [address], [address], 01/02/2023 17:10:10 01/02/20 23 01/02/2023 COMP. METAB OLIC PANEL (14) glucose 124 mg/dL 65-99 above high normal ANION GP 26.0 mmol/ L N OSMOL 278.0 mOsM/ L N REFER ENCE RANGE : 275.0 -301. 0 Not Available [facility] Department [address] [place] [address], [address], 01/02/2023 17:10:11 01/02/20 23 01/02/2023 COMP. METAB OLIC PANEL (14) BUN 16 mg/dL 8-26 Not Available [facility] Department [address] [place] [address], [address], 01/02/2023 17:10:11 01/02/20 23 01/02/2023 COMP. METAB OLIC PANEL (14) creatinine 0.52 mg/dL 0.50-1 .40 Not Available [facility] Department [address] [place] [address], [address], 01/02/2023 17:10:11 01/02/20 23 01/02/2023 COMP. METAB OLIC PANEL (14) eGFR 123 mL/mi n/1.7 3 >=60 Not Available [facility] [address] [place], [address], 01/02/2023 17:10:11 01/02/20 23 01/02/2023 COMP. METAB OLIC PANEL (14) BUN/creatini ne ratio 31.0 Not Available [facility] Department [address] [place], [address], 01/02/2023 17:10:11 01/02/20 23 01/02/2023 COMP. METAB OLIC PANEL (14) sodium 138.0 mmol/ L 136.0- 144.0 Not Available [facility] Department [address] [place], [address], 01/02/2023 17:10:11 01/02/20 23 01/02/2023 COMP. METAB OLIC PANEL (14) potassium 4.6 mmol/ L 3.5-5. 3 Not Available [facility] Department [address] [place], [address], 01/02/2023 17:10:11 01/02/20 23 01/02/2023 COMP. METAB OLIC PANEL (14) chloride 102 mmol/ l 101-11 1 Not Available [facility] Department [address] [place] [address], [address], 01/02/2023 17:10:11 01/02/20 23 01/02/2023 COMP. METAB OLIC PANEL (14) carbon dioxide, total 15.2 mmol/ L 21.0-3 2.0 below low normal Not Available [facility] Department [address] [place], [address], 01/02/2023 17:10:11 01/02/20 23 01/02/2023 COMP. METAB OLIC PANEL (14) calcium 9.6 mg/dL 8.2-10 .0 Not Available [facility] Department [address] [place] [address], [address], 01/02/2023 17:10:11 01/02/20 23 01/02/2023 COMP. METAB OLIC PANEL (14) protein, total 7.4 g/dL 6.7-8. 2 Not Available [facility] Department [address] [place], [address], 01/02/2023 17:10:11 01/02/20 23 01/02/2023 COMP. METAB OLIC PANEL (14) albumin 4.8 g/dL 3.5-5. 5 Not Available [facility] Department [address] [place], [address], 01/02/2023 17:10:11 01/02/20 23 01/02/2023 COMP. METAB OLIC PANEL (14) globulin, total 2.6 g/dL 1.5-4. 5 Not Available [facility] Department [address] [place], [address], 01/02/2023 17:10:11 01/02/20 23 01/02/2023 COMP. METAB OLIC PANEL (14) A/G ratio 2.0 Not Available [facility] Department [address] [place], [address], 01/02/2023 17:10:11 01/02/20 23 01/02/2023 COMP. METAB OLIC PANEL (14) bilirubin, total 0.3 mg/dL 0.0-1. 2 Not Available [facility] Department [address] [place], [address], 01/02/2023 17:10:11 01/02/20 23 01/02/2023 COMP. METAB OLIC PANEL (14) alkaline phosphatase 53.6 IU/L 42.0-1 21.0 Not Available [facility] Department [address] [place], [address], 01/02/2023 17:10:11 01/02/20 23 01/02/2023 COMP. METAB OLIC PANEL (14) AST (SGOT) 19.7 U/L 10.0-4 2.0 Not Available [facility] Department [address] [place], [address], 01/02/2023 17:10:11 01/02/20 23 01/02/2023 COMP. METAB OLIC PANEL (14) ALT (SGPT) 23.7 U/L 10.0-6 0.0 Not Available [facility] Department [address] [place], [address], 01/02/2023 17:10:11 01/02/20 23 01/01/2023 CBC WITH DIFFE RENTI AL/PL ATELE T WBC 6.1 K/uL 3.4-10 .8 Not Available [facility] Department [address] [place], [address], 01/02/2023 17:10:11 01/02/20 23 01/01/2023 CBC WITH DIFFE RENTI AL/PL ATELE T RBC 5.1 M/uL 4.2-5. 4 Not Available [facility] Department [address] [place], [address], 01/02/2023 17:10:11 01/02/20 23 01/01/2023 CBC WITH DIFFE RENTI AL/PL ATELE T hemoglobin 14.9 g/dL 11.5-1 5.5 Not Available [facility] Department [address] [place], [address], 01/02/2023 17:10:11 01/02/20 23 01/01/2023 CBC WITH DIFFE RENTI AL/PL ATELE T hematocrit 45.9 % 36.0-4 8.0 Not Available [facility] Department [address] [place], [address], 01/02/2023 17:10:11 01/02/20 23 01/01/2023 CBC WITH DIFFE RENTI AL/PL ATELE T MCV 90 fL 80-95 Not Available [facility] Department [address] [place], [address], 01/02/2023 17:10:11 01/02/20 23 01/01/2023 CBC WITH DIFFE RENTI AL/PL ATELE T MCH 29 pg 27-32 Not Available [facility] Department [address] [place], [address], 01/02/2023 17:10:11 01/02/20 23 01/01/2023 CBC WITH DIFFE RENTI AL/PL ATELE T MCHC 33 g/dL 32-36 Not Available [facility] [address] [place], [address], 01/02/2023 17:10:11 01/02/20 23 01/01/2023 CBC WITH DIFFE RENTI AL/PL ATELE T RDW 12.5 % 11.5-1 4.5 Not Available [facility] [address] [place], [address], 01/02/2023 17:10:11 01/02/20 23 01/01/2023 CBC WITH DIFFE RENTI AL/PL ATELE T platelets 264 K/uL 155-37 9 MPV 10.1 FL 8.9-1 2.7 N Not Available [facility] Department [address] [place], [address], 01/02/2023 17:10:11 01/02/20 23 01/01/2023 CBC WITH DIFFE RENTI AL/PL ATELE T neutrophils 55.4 % 40.0-7 4.0 Not Available [facility] [address] [place], [address], 01/02/2023 17:10:11 01/02/20 23 01/01/2023 CBC WITH DIFFE RENTI AL/PL ATELE T lymphs 34.6 % 14.0-4 6.0 Not Available [facility] Department [address] [place], [address], 01/02/2023 17:10:11 01/02/20 23 01/01/2023 CBC WITH DIFFE RENTI AL/PL ATELE T monocytes 6.7 % 4.0-12 .0 Not Available [facility] Department [address] [place], [address], 01/02/2023 17:10:11 01/02/20 23 01/01/2023 CBC WITH DIFFE RENTI AL/PL ATELE T eos 1 % 0-5 Not Available [facility] Department [address] [place], [address], 01/02/2023 17:10:11 01/02/20 23 01/01/2023 CBC WITH DIFFE RENTI AL/PL ATELE T basos 0.7 % 0.0-1. 0 Not Available [facility] Department [address] [place] [address], [address], 01/02/2023 17:10:11 01/02/20 23 01/01/2023 CBC WITH DIFFE RENTI AL/PL ATELE T neutrophils (absolute) 3.4 K/uL 1.4-7. 0 Not Available [facility] Department [address] [place] [address], [address], 01/02/2023 17:10:11 01/02/20 23 01/01/2023 CBC WITH DIFFE RENTI AL/PL ATELE T lymphs (absolute) 2.1 K/uL 0.7-3. 1 Not Available [facility] Department [address] [place] [address], [address], 01/02/2023 17:10:11 01/02/20 23 01/01/2023 CBC WITH DIFFE RENTI AL/PL ATELE T monocytes(ab solute) 0.4 K/uL 0.1-0. 9 Not Available [facility] Department [address] [place] [address], [address], 01/02/2023 17:10:11 01/02/20 23 01/01/2023 CBC WITH DIFFE RENTI AL/PL ATELE T eos (absolute) 0.1 K/uL 0.0-0. 4 Not Available [facility] [address] [place] [address], [address], 01/02/2023 17:10:11 01/02/20 23 01/01/2023 CBC WITH DIFFE RENTI AL/PL ATELE T baso (absolute) 0.0 K/uL 0.0-0. 3 Not Available [facility] Department [address] [place] [address], [address], 01/02/2023 17:10:11 01/02/20 23 01/01/2023 CBC WITH DIFFE RENTI AL/PL ATELE T immature granulocytes 1.3 % Not Available [facility] Department [address] [place], [address], 01/02/2023 17:10:11 01/02/20 23 01/01/2023 CBC WITH DIFFE RENTI AL/PL ATELE T immature grans (abs) 0.1 K/uL Not Available [facility] Department [address] [place], [address], 01/02/2023 17:10:11 01/02/20 23 01/01/2023 CBC WITH DIFFE RENTI AL/PL ATELE T NRBC 0 % Not Available [facility] Department [address] [place], [address], 01/02/2023 17:10:11 01/02/20 23 01/02/2023 VITAM IN D, 25-HY DROXY vitamin D, 25-hydroxy 61.2 NG/mL 30.0-1 00.0 Vitam in D defic iency has been defin ed by the Insti tute of Medic ine and an Endoc rine Socie ty pract ice guide line as a level of serum 25-OH vitam in D less than 20 ng/mL (1,2) . The Endoc [facility] ty went on to fur er defin e vitam in D insuf ficie ncy as a level betwe en 21 and 29 ng/mL (2). 1. IOM (Inst itute of Medic ine). 2010. Dieta ry refer ence fei es for calci um and D. Sisi escalante [place]: The Natio nal [facility] Press . 2. Laura chen MF, Constance ey [place], Alexx off-F errar i JORDAN, et al. Evalu ation , treat ment, and preve ntion of vitam in D defic iency : an Endoc rine Socie ty clini migdalia pract ice guide line. JCEM. 2010; 96(7) :1911 -30. Not Available [facility] ([facility]) [address], [place], [address], 01/05/2023 10:09:00 01/02/20 23 01/01/2023 FOOD ALLER [...] >100. 00 Very High Not Available [facility] ([facility]) [address], [place], [address], 01/05/2023 10:09:00 01/02/20 23 01/05/2023 FOOD ALLER GY PROFI LE K330-OaS egg white <0.10 Not Available [facility] ([facility]) [address] [place], [address], 01/05/2023 10:09:00 01/02/20 23 01/05/2023 FOOD ALLER GY PROFI LE Z127-LtG peanut <0.10 Not Available [facility] ([facility]) [address] [place], [address], 01/05/2023 10:09:00 01/02/20 23 01/05/2023 FOOD ALLER GY PROFI LE U316-OsT soybean <0.10 Not Available [facility] ([facility]) [address] [place], [address], 01/05/2023 10:09:00 01/02/20 23 01/05/2023 FOOD ALLER GY PROFI LE U739-PoU milk <0.10 Not Available [facility] ([facility]) [address] [place], [address], 01/05/2023 10:09:00 01/02/20 23 01/05/2023 FOOD ALLER GY PROFI LE A654-ChZ clam <0.10 Not Available [facility] ([facility]) [address] [place], [address], 01/05/2023 10:09:00 01/02/20 23 01/05/2023 FOOD ALLER GY PROFI LE U538-HrP shrimp <0.10 Not Available [facility] ([facility]) [address] [place], [address], 01/05/2023 10:09:00 01/02/20 23 01/05/2023 FOOD ALLER GY PROFI LE S049-MwP walnut <0.10 Not Available [facility] ([facility]) [address] [place], [address], 01/05/2023 10:09:00 01/02/20 23 01/05/2023 FOOD ALLER GY PROFI LE I112-QlO codfish <0.10 Not Available [facility] ([facility]) [address] [place], [address], 01/05/2023 10:09:00 01/02/20 23 01/05/2023 FOOD ALLER GY PROFI LE S190-XoV scallop <0.10 Not Available [facility] ([facility]) [address] [place], [address], 01/05/2023 10:09:00 01/02/20 23 01/05/2023 FOOD ALLER GY PROFI LE D272-WfY wheat <0.10 Not Available [facility] ([facility]) [address] [place], [address], 01/05/2023 10:09:00 01/02/20 23 01/05/2023 FOOD ALLER GY PROFI LE I659-ReI corn <0.10 Not Available [facility] ([facility]) [address], [place], [address], 01/05/2023 10:09:00 01/02/20 23 01/05/2023 FOOD ALLER GY PROFI LE H236-QqY sesame seed <0.10 Not Available [facility] ([facility]) [address], [place], [address], 01/05/2023 10:09:00 01/02/20 23 01/02/2023 TSH RFX ON ABNOR MAL TO FREE T4 TSH 1.030 uIU/m L 0.450- 4.500 Not Available [facility] ([facility]) [address], [place], [address], 01/05/2023 10:08:59 01/02/20 23 01/02/2023 WALESKA C DISEA SE PANEL endomysial antibody IgA NEGATI VE negati ve Not Available [facility] ([facility]) [address], [place], [address], 01/05/2023 10:08:58 01/02/20 23 01/02/2023 WALESKA C [...] tive enter opath y. Not Available [facility] ([facility]) [address] [place], [address], 01/05/2023 10:08:58 01/02/20 23 01/02/2023 WALESKA C DISEA SE PANEL immunoglobul in A, qn, serum 174 mg/dL 87-352 Not Available [facility] ([facility]) [address], [place], [address], 01/05/2023 10:08:58 01/02/20 23 01/01/2023 HbA1c (hemo globi n A1c), blood HbA1c 6.3 Not Available In-Office Order Internal Use Only DO Not Attach Compendium DO Not Attach Compendium, Do Not Delete/merge, [id number] 01/01/2023 08:50:48 01/07/2001/08/2023 H PYLOR I BREAT H TEST H pylori breath test NEGATI VE negati ve Not Available [facility] ([facility]) [address], [place], [address], 01/08/2023 07:14:05 02/25/20 23 02/25/2023 NUSWA B VAGIN ITIS PLUS (VG+) atopobium vaginae Low - 0 score Not Available [facility] ([facility]) [address] [place], [address], 02/26/2023 06:15:09 02/25/20 23 02/25/2023 NUSWA B VAGIN ITIS PLUS (VG+) bvab 2 Low - 0 score Not Available [facility] ([facility]) [address] [place], [address], 02/26/2023 06:15:09 02/25/20 23 02/25/2023 NUSWA B [...] Drug Admin istra tion. Not Available [facility] ([facility]) [address] [place], [address], 02/26/2023 06:15:09 02/25/20 23 02/25/2023 NUSWA B VAGIN ITIS PLUS (VG+) bryson albicans, NELSY Negati ve negati ve Not Available [facility] ([facility]) [address] [place], [address], 02/26/2023 06:15:09 02/25/20 23 02/25/2023 NUSWA B VAGIN ITIS PLUS (VG+) bryson glabrata, NELSY Negati ve negati ve Not Available [facility] ([facility]) [address] [place], [address], 02/26/2023 06:15:09 02/25/20 23 02/26/2023 NUSWA B VAGIN ITIS PLUS (VG+) trich vag by NELSY Negati ve negati ve Not Available [facility] ([facility]) [address] [place], [address], 02/26/2023 06:15:09 02/25/20 23 02/26/2023 NUSWA B VAGIN ITIS PLUS (VG+) chlamydia trachomatis, NELSY Negati ve negati ve Not Available [facility] ([facility]) [address] [place], [address], 02/26/2023 06:15:09 02/25/20 23 02/26/2023 NUSWA B VAGIN ITIS PLUS (VG+) neisseria gonorrhoeae, NELSY Negati ve negati ve Not Available [facility] ([facility]) [address], [place], [address], 02/26/2023 06:15:09 11/25/19 17 imagi ng/di agnos tic resul t No observ ation record ed. [facility] (Imaging) [address], [place], [address], 01/01/2023 12:38:49 08/21/20 17 XR, chest , 2 view No observ ation record ed. Not Available 2022 12:38:49 08/11/20 22 08/11/2022 imagi ng inter preta tion No observ ation record ed. [facility] [address], [place], [address], 01/01/2023 12:38:48 08/11/20 22 08/11/2022 imagi ng inter preta tion No observ ation record ed. [facility] [address], [place], [address], 01/01/2023 12:38:48 02/27/20 23 09/24/2022 US, pelvi s, trans abdom inal + trans vagin al No observ ation record ed. [facility] [address], [place], [address], 03/04/2023 13:36:54 12/16/19 24 12/16/2023 US, duple x, venou s, lower extre mity No observ ation record ed. [facility] [address], [place], [address], 12/18/2023 10:39:34 12/16/19 24 12/16/2023 trans -thor acic echoc ardio gram (TTE) (PROC ) No observ ation record ed. [email or web address] [facility] [address], [place], [address], 12/17/2023 16:10:03 03/07/20 24 03/07/2024 CT, abdom en + pelvi s, w/ contr ast No observ ation record ed. [email or web address] [facility] [address], [place], [address], 03/14/2024 08:49:28 Result Notes None recorded. 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 2017: [facility] SHERLYN LIVINGSTON Attn: Accounting ,[address] 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, [place], [address] , [facility] 3 08:54:57 Impaired glucose tolerance 2203046 Active 2022 SHERLYN LIVINGSTON Attn: Accounting ,[address] [facility], [place], [address] , [facility] 3 08:55:46 Essential hypertens ion 82798991 Active 2022 SHERLYN LIVINGSTON Attn: Accounting ,[address] [facility], [place], [address] , [facility] 3 08:56:02 Celluliti s of face 113039832 Active Not Available [facility] 14:21:59 Depressiv e disorder 43702761 Active Not Available [facility] 14:21:59 Plantar fasciitis 616141012 Active Not Available [facility] 14:21:59 Obesity 369662715 Active Not Available [facility]1983 14:21:59 Problem Notes None recorded. Procedures Surgical History Date Name Laterality Status Provider Name and Address Organization Details Recorded Time 01/08/20 24 Total hysterectomy completed MADHAV LOPEZ PA-C Attn: Accounting, [address] , [place], [address], [place] [facility] 01/13/2024 12:11:59 07/10/20 22 Date of Last Pap Smear completed Roxana Cavazos MA [place] - [facility] 01/01/2023 08:35:43 09/21/19 10 Cholecystectomy completed Madhav Lopez [facility] 09/27/19 15:57:35 09/21/18 90 Tonsillectomy completed Madhav Lopez [facility] 09/27/2014 15:57:35 09/21/18 86 Heart Surgery completed Madhav Lopez [facility] 09/27/2014 15:57:35 Imaging Results Imaging Date Name Status LastModified by Organization Details LastModified Time 11/24/2016 imaging/diagnostic result completed [facility] (Imaging) [address] [place], [address], 01/01/2023 12:38:49 08/21/2017 XR, chest, 2 view completed Informa tion not available 01/01/2023 12:38:49 08/11/2022 imaging interpretation completed [facility] [address], [place], [address], 01/01/2023 12:38:48 08/11/2022 imaging interpretation completed [facility] [address], [place], [address], 01/01/2023 12:38:48 09/24/2022 US, pelvis, transabdominal + transvaginal completed [facility] [address], [place], [address], 03/04/2023 13:36:54 12/16/2023 US, duplex, venous, lower extremity completed [email or web address] [address], [place], [address], 12/18/2023 10:39:34 12/16/2023 trans-thoracic echocardiogram (TTE) (PROC) completed [email or web address] [facility] [address], [place], [address], 12/17/2023 16:10:03 03/07/2024 CT, abdomen + pelvis, w/ contrast completed [email or web address], [place], [address], 03/14/2024 08:49:28 Procedure Notes None recorded. Medical Equipment None Reported. Allergies No known drug allergies Medications Name Sig Start Date Stop Date Status Note LastModified by Organization Details LastModified Time binaxnow cov kit home sade 01/01 completed Not Available Not Available Not Available flowflex kit test 01/01 completed Not Available Not Available Not Available [facility] 2-pk kit covid-19 02/24 completed Not [...] Address Organization Details Last Updated DateTime 5 [address].6 [address] g 98 % 98 % 167.64 cm 98.6 [degF] 72 /min 31.1 kg/m2 98 mm[Hg] 52 mm[Hg] Nithin Bo MA [facility] 5 10:01:26 Date Recorded Body height Body mass index (BMI) Body weight Heart rate Body temperature Oxygen saturation Oxygen saturation in Arterial blood by Pulse oximetry Systolic blood pressure Diastolic blood pressure Provider Name and Address Organization Details Last Updated DateTime 3 167.64 cm 34.9 kg/m2 31414.9 5 g 83 /min 98.6 [degF] 96 % 96 % 102 mm[Hg] 60 mm[Hg] Roxana Cavazos MA [facility] 3 08:33:30 Date Recorded Body height Body mass index (BMI) Body weight Heart rate Body temperature Oxygen saturation Oxygen saturation in Arterial blood by Pulse oximetry Systolic blood pressure Diastolic blood pressure Provider Name and Address Organization Details Last Updated DateTime 3 167.64 cm 34.9 kg/m2 91427.7 5 g 79 /min 98.7 [degF] 98 % 98 % 120 mm[Hg] 80 mm[Hg] Roxana VELMA Cavazos [facility] 3 10:39:07 Date Recorded Respiratory rate Body weight Heart rate Body mass index (BMI) Body height Body temperature Systolic blood pressure Diastolic blood pressure Provider Name and Address Organization Details Last Updated DateTime 5 16 /min 32494.7 77740 g 72 /min 31.2 kg/m2 167.64 cm 98.1 [degF] 110 mm[Hg] 60 mm[Hg] Madhav Lopez [facility] 5 15:57:35 Date Recorded Body height Body mass index (BMI) Body weight Heart rate Oxygen saturation Oxygen saturation in Arterial blood by Pulse oximetry Systolic blood pressure Diastolic blood pressure Provider Name and Address Organization Details Last Updated DateTime 3 167.64 cm 34.9 kg/m2 47219.7 5 g 83 /min 96 % 96 % 102 mm[Hg] 70 mm[Hg] Maegan Beltrán [facility] 3 08:31:17 Social History Question Answer Notes LastModified by Organizat ion Details LastModified Time Tobacco Smoking Status Never Smoker Madhav matthews [place] - [facility] 09/27/2014 15:57:35 Do You Have [...] Response Coronary Artery Disease N Other N High Blood Pressure N Atrial Fibrillation N Kidney or Bladder Problems N Thyroid Problems N GI Problems N Depression N COPD N Blood Clots N Skin Problems N Anemia N Heart Attack (MA) N Anxiety Disorder Y Diabetes N Muscle, Joint, or Bone Problems N Seizures/Epilepsy Y Acid Reflux (GERD) Y Cancer N Stroke N Asthma N Allergies N High Cholesterol N Hepatitis N Liver Disease N Headaches N Heart Failure N Osteoporosis N Gynecological [...] SNOMED-CT Code Diagnosis ICD10 Code Diagnosis Note [id number] Marco (Adult Med) [address] [place] [phone] 09/27/2014 15:37:48 09/27/2014 17:22:46 Depressive disorder 37039758 Plantar fasciitis [id number] Obesity 069039120 [id number] MD Marco Cuba (Adult Med) [address] [place] [address] 0 07/19/2015 09:45:41 07/19/2015 13:01:23 Cellulitis of face 312429899 L03.827 [id number] SHERLYN LIVINGSTON (Adult Med) [address] [place] [phone] 01/01/2023 08:19:10 01/01/2023 14:57:36 Essential hypertension 08470779 I10 BP Today: 102/60c/w losartan 25 mg, [...] QD. Being prescribed by OBGYNc/w sertraline Obesity 966569583 E66.9 BMI 34.9 today- Patient given handouts on healthy lifestyle and diet Impaired g lucose tolerance 3466630 R73.03 Last A1C: 6.3 today (01/01/2023 )Current [...] A1c today Irritable bowel syndrome with diarrhea 758133848 K58.0 Patient presenting with abdominal pain almost [...] high fiber diet Vitamin D deficiency 347 88539 E55.9 Vit. D prescribed by her OBGYN- Check Vit. D levels Dyspareunia 02624426 N94 .10 Patient c/o Dyspareuni a x [...] OBGYN- Patient given handouts on painful sex [id number] SHERLYN LIVINGSTON (Adult Med) [address] [place] [address] 02/10/2023 10:30:40 02/11/2023 14:04:34 Irritable bowel syndrome with diarrhea 858575042 K58.0 States her abdominal pain and loose [...] for IBS, and high fiber diet Dyspareunia 19838311 N94 .10 Patient c/o Dyspareuni a x [...] Patient given handouts on painful sex Obesity 899619683 E66.9 BMI 34.9 today- Patient given handouts on healthy lifestyle and diet Memory impairment 066901 006 R41.3 Complainin g of forgetfuln ess [...] with hx of seizures and migraines Insomnia 158956393 G47.0 0 Issues sleeping at night, my [...] with trusting her Chronic in terstitial cystitis 831314812 N30.10 Diagnosed with IC by her OBGYN, admits to bladder pain after drinking certain types of liquids and with holding her bladder for long periods of time- continue without tx for now- could be playing role in pelvic pain? Depression screening 171 096694 Z13.31 PHQ 10/30 was negative in office today (0 out of 27) [id number] SHERLYN LIVINGSTON (Adult Med) [facility] [place] [address] 02/24/2023 08:23:49 02/25/2023 11:58:09 Dyspareunia 36880176 N94.10 Patient c/o Dyspareuni a x > [...] be called with results when available Obesity 189200277 E66.9 BMI 34.9 today- Patient given handouts on healthy lifestyle and diet Health Concerns Section Related Observation LastModified by Organization Detai ls LastModified Time None Recorded Concern Status LastModified by Organization Details LastModified Time None Recorded Advance Directives Directive N: Payers Encounter Date Sequence Insurance Name Policy Number Policy Barton Covered Member ID Barton Member ID Guarantor Name 09/27/2014 1 [employer] [facility] - DOS PRIOR TO 2021 (MEDICAID REPLACEMENT - HMO) Destini Skinner [id number] Destini Skinner 07/19/2015 1 [facility] (MEDICAID HMO) [id number] Destini Skinner [id number] Destini Tavaresallo 01/01/2023 1 [place] [id number] Destini Skinner [id number] Destini Skinner 01/01/2023 2 [facility] (MEDICAID REPLACEMENT - HMO) [id number] Destini Skinner [id number] Destini Tavaresallo 02/10/2023 1 [place] [id number] Destini Skinner [id number] Destini Guerlineo 02/10/2023 2 [facility] (MEDICAID REPLACEMENT - HMO) [id number] Destini Skinner [id number] Destini Cunhao 02/24/2023 1 [place] [id number] Destini Skinner [id number] Destini Chaitanyaallo 02/24/2023 2 [facility] (MEDICAID REPLACEMENT - [facility] [id number] Destini Skinner [id number] Desitni Skinner Notes Date Note Type Note Provider Name and Address Organization Details Recorded Time 07/19/2015 text/html broken tooth.Can not a appointment to see her dentist untill next month. 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 Patient on Jardiance for pre-diabetes. A1c [...] or dysuria. SHERLYN LIVINGSTON Attn: [address] [place], [address], [facility] 01/01/2023 12:40:17 02/10/2023 text/html Destini [...] dysuria. SHERLYN LIVINGSTON Attn: [address]ing[address] [facility], [place], [address], [facility] 02/10/2023 15:15:00 02/24/2023 text/html 37 y/o female [...] hematuria. SHERLYN LIVINGSTON Attn: Accounting[address] [facility], [place], [address], [facility] 02/24/2023 13:51:39 OBGyn Episode No OBEpisode recorded.
--- OUTSIDE RECORDS SUMMARY | 2024-11-14 13:12 | XMS_ITS | Encounter Summary ---
Author Organization [facility] Address [facility] [place] [address] Care Team Providers Care Low Altitude Air Defense Officer Name Role Phone Alida Klein MD Primary Care Provider [phone] Encounter Details Date Type Department Care Team (Late st Contact Info) Description 05/18/2024 MyChart Message Enc [facility] Mult[facility]ty Care - [place] [address] [place] [address] [address] [place] [address] Alida Klein MD [address] [place] [address] [address] [place] [address] Lab results 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 Sex Female 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 Gender Identity Female 03/25/2024 3:16 PM CDT Sexual Orientation Straight 03/25/2024 3: 16 PM CDT documented as of this encounter Plan of Treatment Upcoming Encounters Date Type Department Care Team (Late st Contact Info) Description 12/12/2024 4:00 PM CDT Office Visit [facility] Multispecialty Care - [place] [address] [address] [place] [address] Alida Klein MD [address] [place] [address] documented as of this encounter Visit Diagnoses Not on filedocumented in this encounter Additional Health Concerns Infection Onset Date Last Indicated Resolved Time COVID-19 Rule Out 09/30/2024 09/30/2024 09/30/2024 3:56 PM VINYL INSTALLER documented as of this encounter Care Teams Low Altitude Air Defense Officer Relationship Specialty Start Date End Date Alida Klein MD [address] [place] [address] PCP - General INTERNAL MEDICINE 03/23/24 documented as of this encounter
[2024-11-14] MEDS: KETOROLAC 30 MG/ML VIAL (*BKC) IM (13:24)
--- NOTE | 2024-11-14 13:26 | ED_ITS ---
HPI - General Adult General Chief complaint: Headache Stated complaint: cough, upper back pain, headache Time Seen by Provider: 11/14/24 12:57 History of Present Illness HPI narrative: 39-year-old female presents emergency department for evaluation for flu-like symptoms. Patient reports symptoms started on Thursday. Patient has been taking Zicam. Patient has not been taking Tylenol or ibuprofen. Patient does report headache body aches cough and congestion. Patient is also trying to take a medical THC gummies to see if these help. Related Data Home Medications ?Medication ?Instructions ?Recorded ?Confirmed ?Last Taken ?Type aspirin 81 mg tablet,delayed 81 mg PO DAILY 05/06/20 11/14/24 11/13/24 History release (Adult Low Dose Aspirin) ergocalciferol (vitamin D2) 1,250 1,250 mcg PO WEEKLY 05/06/20 11/14/24 11/13/24 History mcg (50,000 unit) capsule (Vitamin D2) sertraline 50 mg tablet 75 mg PO HS 05/06/20 11/14/24 11/13/24 History famotidine 20 mg tablet (Pepcid AC) 20 mg PO DAILY 06/20/20 11/14/24 11/13/24 History levonorgestrel-ethinyl estradiol 1 tablet PO HS 08/17/20 11/14/24 11/13/24 History 0.1 mg-20 mcg tablet (Vienva) empagliflozin 10 mg tablet 10 mg PO DAILY 06/02/23 11/14/24 11/13/24 History (Jardiance) losartan 25 mg tablet 25 mg PO HS 06/02/23 11/14/24 11/13/24 History L.acidop,casei,lactis,rham-B.lact,vannessa 1 cap PO DAILY 12/28/23 11/14/24 11/13/24 History 625 mg (10 billion cell) capsule (Advanced Probiotic) Allergies Allergy/AdvReac Type Severity Reaction Status Date / Time [place] And Derivatives AdvReac Mild Nausea and Verified 11/14/24 12:58 Vomiting Review of Systems Review of Systems: All systems reviewed & are unremarkable except as noted in HPI and below PMFSH Past Medical History Medical History Depression with anxiety GERD (gastroesophageal reflux disease) Hx of pulmonary artery stenosis Interstitial cystitis Pulmonary stenosis Surgical History Surgical History Hx of cholecystectomy Hx of mitral valve replacement Hx of tonsillectomy Pulmonary valve replaced Family History Family History Father Diabetes mellitus Lung cancer Social History Social History Smoking status: Never smoker Alcohol intake: current Alcohol use details: VERY RARE Substance use: current Substance use type: marijuana Living arrangements: with family Gender identity (if verbalized by the patient): Female Spiritual care concerns: No Exam Narrative: APPEARANCE: Well appearing, no pain, no distress, well-nourished. HEAD: normocephalic, atraumatic. EYES: PERRLA/EOMI, conjunctivae clear. NOSE: Normal no drainage EARS:TMS clear with good light reflex. THROAT: Pharynx clear, no exudate. NECK: Supple. No adenopathy, no masses. RESPIRATORY: Airway patent, respirations nonlabored. Clear to auscultation bilaterally, no rales, rhonchi, wheezing. CARDIOVASCULAR: Regular rate and rhythm without murmurs rubs or gallops. ABDOMINAL: Soft, nontender, nondistended, normal bowel sounds MUSCULOSKELETAL: Moves all extremities. Strength/ROM intact, No edema, No calf tenderness. NEURO: Alert. Cranial nerves II through XII intact. Good gait. Good coordination SKIN: Warm, dry. Normal Color Course Vital Signs Vital signs: Vital Signs Temperature 97.9 F 11/14/24 11:54 Pulse Rate 87 11/14/24 11:54 Respiratory Rate 18 11/14/24 11:54 Blood Pressure 114/67 11/14/24 11:54 Pulse Oximetry 100 11/14/24 11:54 Oxygen Delivery Room Air 11/14/24 11:54 Temperature 97.9 F 11/14/24 11:54 Pulse Rate 87 11/14/24 11:54 Respiratory Rate 18 11/14/24 11:54 Blood Pressure 114/67 11/14/24 11:54 Pulse Oximetry 100 11/14/24 11:54 Oxygen Delivery Room Air 11/14/24 11:54 Medical Decision Making MDM Narrative Medical decision making narrative: 39-year-old female present to the emergency department for evaluation for cough congestion body aches and fatigue. Patient was positive for influenza A. Chest x-ray was negative. Patient had been taking a homeopathic zinc medication and she was advised to switch to Tylenol and ibuprofen. Patient also be provided beat oral inhaler and Tessalon Perles. Patient was encouraged close follow-up with primary care physician. Differential Diagnosis Differential Diagnosis: COVID, RSV, influenza, migraine, dehydration Vital Signs Vital Signs: Vital Signs Temperature 97.9 F 11/14/24 11:54 Pulse Rate 87 11/14/24 11:54 Respiratory Rate 18 11/14/24 11:54 Blood Pressure 114/67 11/14/24 11:54 Pulse Oximetry 100 11/14/24 11:54 Oxygen Delivery Room Air 11/14/24 11:54 Temperature 97.9 F 11/14/24 11:54 Pulse Rate 87 11/14/24 11:54 Respiratory Rate 18 11/14/24 11:54 Blood Pressure 114/67 11/14/24 11:54 Pulse Oximetry 100 11/14/24 11:54 Oxygen Delivery Room Air 11/14/24 11:54 Lab Data Labs: Lab Results 11/14/24 Range/Units 13:15 Influenza A (RT-PCR) Positive A (Negative) Influenza B (RT-PCR) Negative (Negative) RSV (RT-PCR) Negative (Negative) SARS-CoV-2 RNA (RT-PCR) Negative (Negative) Imaging Data Radiologist's impression: Impressions Chest X-Ray 11/14/24 13:41 IMPRESSION: No focal infiltrate or effusion. Discharge Plan Discharge Clinical Impression: Headache, Influenza A Patient Disposition: Home, Self-Care Condition: Stable Instructions: Antibiotic Form, Influenza (ED) Additional Instructions: Tylenol and ibuprofen for pain control body aches and fatigue. Albuterol inhaler for shortness of breath. Tessalon Perles for cough. Have close follow- up with your primary care physician. If you have any worsening symptoms then please call or return to the emergency department. Patient Language: Estonian Prescriptions: New benzonatate 100 mg capsule 100 mg PO TID PRN (Reason: cough) Qty: 14 0RF albuterol sulfate 90 mcg/actuation HFA aerosol inhaler 1 puff inhalation QID Qty: 6.7 0RF No Action levonorgestrel-ethinyl estrad [Vienva] 0.1-20 mg-mcg tablet 1 tablet PO HS sertraline 50 mg Tablet 75 mg PO HS aspirin [Adult Low Dose Aspirin] 81 mg Tablet,Delayed Release (Dr/Ec) 81 mg PO DAILY ergocalciferol (vitamin D2) [Vitamin D2] 1,250 mcg (50,000 unit) Capsule 1,250 mcg PO WEEKLY Patient Comments: PT TAKES ON THURSDAY losartan 25 mg tablet 25 mg PO HS Jardiance 10 mg tablet 10 mg PO DAILY famotidine [Pepcid AC] 20 mg Tablet 20 mg PO DAILY albuterol sulfate [Ventolin HFA] 90 mcg/actuation HFA aerosol inhaler 2 puff inhalation QID PRN (Reason: shortness of breath or wheezing) Qty: 8.5 0RF Advanced Probiotic 625 mg (10 billion cell) Capsule 1 cap PO DAILY Follow-up/Referrals: Latoya,MD Alida [Primary Care Provider] - Stand Alone Forms: Work/School Release IP
[2024-11-14 14:08] LABS: Influenza A QL RT-PCR Positive (Negative); Influenza B QL RT-PCR Negative (Negative); RSV RNA, RT-PCR Negative (Negative); SARS-CoV-2 RNA PCR Negative (Negative)
--- OUTSIDE RECORDS SUMMARY | 2024-11-14 14:51 | XMS_ITS | Clinical Summary ---
Author Organization [facility] Care Team Providers Care Conductor Yard Name Role Phone Unavailable Primary Care Provider [...]
--- OUTSIDE RECORDS SUMMARY | 2024-11-14 14:51 | XMS_ITS | CONTINUITY OF CARE DOCUMENT ---
Author Name sarahluis eduardo sarahluis eduardo Address Unknown Organization [facility] Address [address] [facility] [address] [place] [address] Phone [phone] Care Team Providers Care Gang Knife Fish Chopper Name Role Phone Zion TYLER, Basilio Unavailable Alida Klein MD Unavailable [phone] Alida Klein MD Unavailable [phone] PROBLEMS Condition Status Date Provider Notes Obesity active Jordi Person Prediabetes active Jordi Person Congenital pulmonary artery stenosis--s/p PVR, 2017 active Jordi Person Sleep apnea, declines cpap active Basilio massey MD Fatigue active Basilio Donovan MD Lower extremity edema active Basilio Kramer Snoring completed - Basilio Donovan MD Hypertension--echo ef nl, 11/2023 active Basilio Donovan MD ENCOUNTERS Date Type Provider Location Encounter Diag nosis - In-person encounter Office Visit Basilio Donovan MD [facility] - In-person encounter Office Visit Basilio Donovan MD [facility] Hypertension--echo ef nl, 11/2023 - In-person encounter Office Visit Basilio Donovan MD [facility] SnoringSleep apnea, declines cpapFatigueLower extremity edema - In-person encounter Office Visit Basilio Donovan MD [facility] - In-person encounter Office Visit Basilio Donovan MD [facility] VITAL SIGNS Date Observation Value Provider Body Mass Index (Ratio) 31.63 kg/m2 Bright Donovan MD blood pressure, diastolic 75 mm[Hg] Alfredo Sinha RN blood pressure, systolic 121 mm[Hg] Demertia Sinha RN oxygen saturation, oximetry 96 % Demetria Sinha RN pulse rate 75 /min Demetria Sinha RN weight E&M 196 [lb_av] Demetria Sinha RN Body Mass Index (Ratio) 35.51 kg/m2 Bright Donovan MD blood pressure, cuff size [facility], diastolic 79 mm[Hg] Ja rret blood pressure, systolic 136 mm[Hg] Jar ret pulse rate 80 /min Ab oxygen saturation, oximetry 97 % Ab respiratory rate E&M 14 /min Ab weight E&M 220 [lb_av] Ab y height E&M 66 [in_i] [facility] y Body Mass Index (Ratio) 35.51 kg/m2 Bright Donovan MD pulse rate 67 /min Pippa Lewis blood pressure, cuff size regular [facility] blood pressure, diastolic 76 mm[Hg] [facility] blood pressure, systolic 124 mm[Hg] Chato [...] Payer name Policy type / Coverage type [place] [employer] party ID [id number] ADVANCE DIRECTIVES Name Date DISCUSSED - NO DECISION MADE TREATMENT PLAN Date Name Performer [id number],SBasilio MD [id number],WBasilio MD [id number],Basilio Saucedo MD [id number],Basilio Saucedo MD [id number],WBasilio MD [id number],S, Jordi Ahmedza i [id number],S, Jordi Ahmedza i [id number],S, Jordi Ahmedza i [id number],S, Jordi Ahmedza i [id number],S, Jordi Ahmedza i Cardiology [facility]zai Cardiology [...] 1 tablet by mouth once a day [facility]: H er updated medication list for this problem includes: Losartan 25 Mg Tablet (Losartan) ..... Take 1 tablet by mouth every day Aspirin 81 Mg Tablet,delayed Release (dr/ec) (Aspirin) ..... Take 1 tablet by mouth once a day BP today: 136/79 P rior BP: 124/76 (12/01/2023) [facility]: O rders: C OMPREHENSIVE METABOLIC PANEL, W/EGFR (28014) P ROBNP, N TERMINAL (13387) C RP, high sensitivity (27875) H EMOGLOBIN A1c (496) T SH, free T4, total T3 (7444) LIPID PANEL (7600) C BC (INCLUDES DIFF/PLT) (6399) F ERRITIN (457) I GÉNESIS AND TOTAL IRON BINDING CAPACITY (7573) V itamin D, 25-Hydroxy (677214) [facility]: B P today: 124/76 P rior BP: 146/88 (07/16/2022) Her updated medication list for this problem includes: Losartan 25 Mg Tablet (Losartan) ..... Take 1 tablet by mouth every day Aspirin 81 Mg Tablet,delayed Release (dr/ec) (Aspirin) ..... Take 1 tablet by mouth once a day Orders: C omplete Echo (73429) C OMPREHENSIVE METABOLIC PANEL, W/EGFR (72290) P ROBNP, N TERMINAL (48108) C RP, high sensitivity (99519) H EMOGLOBIN A1c (496) T SH, free T4, total T3 (7444) L IPID PANEL (7600) C BC (INCLUDES DIFF/PLT) (6399) F ERRITIN (457) I GÉNESIS AND TOTAL IRON BINDING CAPACITY (7573) V itamin D, 25-Hydroxy (888525) [facility]i [facility]ai Cardiology: O rders: C OMPREHENSIVE METABOLIC PANEL, W/EGFR (58863) P ROBNP, N TERMINAL (04628) C RP, high sensitivity (84944) H EMOGLOBIN A1c (496) T SH, free T4, total T3 (7444) LIPID PANEL (7600) C BC (INCLUDES DIFF/PLT) (6399) F ERRITIN (457) I GÉNESIS AND TOTAL IRON BINDING CAPACITY (7573) V itamin D, 25-Hydroxy (212957) [facility]i Russellzai Cardiology: O rders: C omplete Echo (00421) C OMPREHENSIVE METABOLIC PANEL, W/EGFR (73679) P ROBNP, N TERMINAL (33668) C RP, high sensitivity (84387) H EMOGLOBIN A1c (496) T SH, free T4, total T3 (7444) L IPID PANEL (7600) C BC (INCLUDES DIFF/PLT) (6399) F ERRITIN (457) I GÉNESIS AND TOTAL IRON BINDING CAPACITY (7573) V itamin D, 25-Hydroxy (288764) [facility]ordi Russellzai Cardiology: O rders: C omplete Echo (29395) C OMPREHENSIVE METABOLIC PANEL, W/EGFR (56411) P ROBNP, N TERMINAL (37965) C RP, high sensitivity (99807) H EMOGLOBIN A1c (496) T SH, free T4, total T3 (7444) L IPID PANEL (7600) C BC (INCLUDES DIFF/PLT) (6399) F ERRITIN (457) I GÉNESIS AND TOTAL IRON BINDING CAPACITY (7573) V itamin D, 25-Hydroxy (598439) Jordi Person Telehealth- needs apt on Sep [...]
--- OUTSIDE RECORDS SUMMARY | 2024-11-14 14:51 | XMS_ITS | Encounter Summary ---
Author Organization [facility] Address [facility] [place] [address] Care Team Providers Care Middle School French Teacher Name Role Phone Alida Klein MD Primary Care Provider [phone] Encounter Details Date Type Department Care Team (Late st Contact Info) Description 10/19/2024 MyChart Message Enc [facility] Multispecialty Care - [place] [address] [address] [place], [place] [id number] Alida Klein MD [address] [place] [address] [address] [place] [address] Jardiance Social History Tobacco Use Types Packs/Day [...] PM CDT Legal Sex Female 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 Gender Identity Female 03/25/2024 3:16 PM CDT Sexual Orientation Straight 03/25/2024 3: 16 PM CDT documented as of this encounter Plan of Treatment Upcoming Encounters Date Type Department Care Team (Late st Contact Info) Description 12/12/2024 4:00 PM CDT Office Visit [facility] Multispecialty Care [place] [address] [address] [place], [place] [phone] Alida Klein MD [address] [place] [address] [phone] documented as of this encounter Visit Diagnoses Not on filedocumented in this encounter Care Teams [employer] French Teacher Relationship Specialty Start Date End Date Alida Klein MD [address] [place] [address] [phone] PCP - General INTERNAL MEDICINE 03/23/24 documented as of this encounter
--- OUTSIDE RECORDS SUMMARY | 2024-11-14 14:51 | XMS_ITS | Patient Health Summary ---
Author Organization [facility] Address [address] [place] [address] Care Team Providers Care Mathematics Teacher Name Role Phone Rodrigo Rizvi MD Primary Care Provider Note from [facility],non-owned Affiliates and Associated Physician Practices is amultiple site organization consisting of ambulatory clinics and hospital sitesin [place], [place], [place] and [place]. This disclosure is being madepursuant to the Care Everywhere program and may not contain all information available regarding this patient. Last updated 18.[facility] Allergies No known active allergies Medications * Be aware that medications may not be up to date on this document. Alwaysverify current medications with the patient. * acyclovir (ZOVIRAX) 400 MG tablet(Started 04/20/2018) Take 400 mg by mouth once daily * vitamin D, ergocalciferol, (DRISDOL) 32927 UNITS capsule(Started 04/20/2018) * VIENVA 0.1-20 MG-MCG [...] Performed for Exposure to COVID-19 virus * [place] INTRALESIONAL INJECTION(S) 7 OR LESS(Performed 06/15/2018) Performed for Hypertrophic scar * [place] INJ TRIAMCINOLON ACETONID NOS 10 MG(Performed 06/15/2018) Performed for Hypertrophic scar * [place] INTRALESIONAL INJECTION(S) 7 OR LESS(Performed 05/05/2018) Performed for Hypertrophic scar Results * SARS-COV-2 (COVID-19) IN HOUSE (08/01/2020 11:53 AM PERSONNEL COUNSELOR) COVID-19 PCR Not detected Not detected 08/02/2020 7:30 PM PERSONNEL COUNSELOR [facility] MICROBIOLOGY Microbiology SPECIMEN FROM NASOPHARYNGEAL STRUCTURE / Unknown Collection / Unknown 08/01/2020 11:53 AM PERSONNEL COUNSELOR 08/01/2020 11:53 AM PERSONNEL COUNSELOR Narrative [facility] MICROBIOLOGY - 08/02/2020 7:30 PM PERSONNEL COUNSELOR This nucleic acid amplification assay performance was validated by [facility] Microbiology Laboratory. This test has been authorized [...] assay are available upon request. Shira Díaz CLIENT SERVICES ACCOUNT MANAGER-CHAR FILTER OPERATOR HELPER LAB - MICR OBIOLOGY ORDERABLES [facility] MICROBIOLOGY [address] [place] [address], [facility] [phone] * [place] INJ TRIAMCINOLON ACETONID NOS 10 MG, [place] INTRALESIONAL INJECTION(S) 7 OR LESS (06/15/2018 12:16 [...] 30 gauge needle. Patient tolerated injections well. [facility] [id number] (K10) [facility] [id number] (K40) Bong Hobson MD [facility] Dermatology Resident, PGY-4 Consuelo Ponce MD PROCEDURE/MINOR MITTAL RGICAL ORDERABLES * [place] INTRALESIONAL INJECTION(S) 7 OR LESS (05/05/2018 4:02 [...] 30 gauge needle. Patient tolerated injections well. [facility] [id number] (K10) [facility] [id number] (K40) Bong Hobson MD [facility] Dermatology Resident, PGY-4 Consuelo Ponce MD PROCEDURE/MINOR MITTAL RGICAL ORDERABLES Care Teams Mathematics Teacher Relationship Specialty Start Date End Date Rodrigo Rizvi MD [address] [place] [phone] PCP - General 04/27/18
--- OUTSIDE RECORDS SUMMARY | 2024-11-14 14:51 | XMS_ITS | Referral Summary ---
Author Organization [facility] [employer] Address [address] [place] [address] Care Team Providers Care Technical Spec Name Role Phone Rodrigo Rizvi MD Primary Care Provider [phone] Source Comments [facility] [employer],non-owned Affiliates and Associated Physician Practices is amultiple site organization consisting of ambulatory clinics and hospital sitesin [place], [place], [place] and [place]. This disclosure is being madepursuant to the Care Everywhere program and may not contain all information available regarding this patient. Last updated 18.[facility] [employer] Allergies No known active allergies Medications * Be aware that medications may not be up to date on this document. Alwaysverify current medications with the patient. Medication Sig Dispensed Refills Start Date End Date Status acyclovir (ZOVIRAX) 400 MG tablet Take 400 mg by mouth once daily 04/20/2018 Active vitamin D, ergocalciferol, (DRISDOL) 15180 UNITS capsule 04/20/2018 Active VIENVA 0.1-20 MG-MCG [...] of Treatment Not on file Care Teams Technical Spec Relationship Specialty Start Date End Date Rodrigo Rizvi MD [address] [place] [id number] PCP - General 04/27/18
--- OUTSIDE RECORDS SUMMARY | 2024-11-14 14:51 | XMS_ITS | Clinical Summary ---
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 Role Phone Alida Klein MD Primary Care Provider [phone] Allergies No known active allergies Medications acyclovir [...] hyperglycemia, without long-term current use of insulin ([facility]) Take 1 tablet (25 mg total) by [...] (BMI) of 35.0 to 35.9 in adult ([facility]) 03/23/2024 NANCY (obstructive sleep apnea) 03/23/2024 Type 2 diabetes mellitus wit h hyperglycemia, without long-term current use of insulin ([facility]) 12/21/2020 Nonrheumatic pulmonary valve stenosis 12/14/2018 Encounters Date Type Department Care Team Description 11/01/2024 Scan [facility] SRVCS Scanned, Doc [facility] Mammogram (SCAN); Ultrasound (SCAN) 11/01/2024 [facility] [place] [address] [place] [address] Alida Klein MD Follow Up Call 10/19/2024 Orders Only [facility] [address] [facility] [place] [address] Alida Klein MD 10/19/2024 MyChart Message Enc [facility] [address] [place] [address] Alida Klein MD Jardiance 09/30/2024 3:40 PM ICE CREAM VENDOR Office Visit [facility] [place] [address] [place] [address] Alida Klein MD Cough (Started 2 days ago. ) 09/30/2024 Travel 09/12/2024 4:00 PM ICE CREAM VENDOR Office Visit [facility] [place] [address] [place] [address] Alida Klein MD Follow Up; Hypertension; Diabetes [...] PM CDT Legal Sex Female 7:40 PM ICE CREAM VENDOR Gender Identity Female 03/25/2024 3:16 PM CDT Sexual Orientation Straight 03/25/2024 3: 16 PM CDT Last Filed Vital Signs Vital Sign Reading Time Taken Comments Blood Pressure 106/66 09/30/2024 3:30 PM ICE CREAM VENDOR Pulse 89 09/30/2024 3:30 PM ICE CREAM VENDOR Temperature 36.1 C (97 F) 09/30/2024 3:30 PM ICE CREAM VENDOR Respiratory Rate 18 09/30/2024 3:30 PM ICE CREAM VENDOR Oxygen Saturation 97% 09/30/2024 3:30 PM ICE CREAM VENDOR Inhaled Oxygen Concentration - - Weight 89.1 kg (196 lb 6.4 oz) 09/30/2024 3:30 P M ICE CREAM VENDOR Height 167.6 cm (5' 6 ) 09/30/2024 3:30 PM ICE CREAM VENDOR Body Mass Index 31.7 09/30/2024 3:30 PM ICE CREAM VENDOR Plan of Treatment Upcoming Encounters Date Type Department Care Team (Late st Contact Info) Description 12/12/2024 4:00 PM CDT Office Visit [facility] [place] [address] [address] [place] [address] [place] [address] [place] [address] [address] [place] [address] Health Maintenance Due Date Last Done Comments Diabetes: Retinopathy Eye Exam 2003 Hepatitis B Vaccines (1 of 3 - 19+ 3-dose series) 2004 COVID-19 Vaccine ( season) 2024 07/13/2021, 12/29/2020, 12/02/2020 PHQ-2 (Physician [place]) 09/21/2024 03/23/2024 Hemoglobin A1C 03/13/2025 09/12/2024, 07/0 [...] location HEMOGLOBIN, GLYCOSYLATED Routine 09/12/2024 4:42 PM ICE CREAM VENDOR Type 2 diabetes mellitus with hyperglycemia, without long-term current use of insulin ([facility]) COMPREHENSIVE METABOLIC PANEL Routine 09/12/2024 4:42 PM ICE CREAM VENDOR Type 2 diabetes mellitus with hyperglycemia, without long-term current use of insulin ([facility]) HEPATITIS C ANTIBODY Routine 03/25/2024 8:46 AM [...] ANTIGEN IA NEGATIVE NEGATIVE -[address], [place] INFLUENZA A NEGATIVE NEGATIVE MG-[address], [place] INFLUENZA B NEGATIVE NEGATIVE MG[address], [place] Internal Control: VALID VALID MG[address], [place] NASAL STRUCTURE / Unknown 09/30/2024 Alida Klein MD MICROBIOLOGY - GENERAL ORDERABLE S Final Result [address], [place] [address] [place] [address], [place] [phone] * (ABNORMAL) HEMOGLOBIN, GLYCOSYLATED (09/12/2024 4:42 PM ICE CREAM VENDOR) HGB A1C 5.4 4.5 - 6.2 % 09/12/2024 8:05 PM ICE CREAM VENDOR [facility] ESTIMATED AVG GLUCOSE 108(H) 74 - 106 MG/DL 09/12/2024 8:05 PM ICE CREAM VENDOR [facility] 09/12/2024 4:42 PM ICE CREAM VENDOR Alida Klein MD LABORATORY Final Result [facility] [address] [place] [address], [place] [phone] * (ABNORMAL) COMPREHENSIVE METABOLIC PANEL (09/12/2024 4:42 PM ICE CREAM VENDOR) SODIUM S/P/B 140 136 - 145 MMOL/L 09/12/2024 7:52 PM [facility] POTASSIUM S/P/B 4.2 3.5 - 5.1 MMOL/L 09/12/2024 7:52 PM [facility] CHLORIDE S/P/B 107 98 - 107 MMOL/L 09/12/2024 7:52 PM [facility] CO2 30.1 21 - 32 MMOL/L 09/12/2024 7:52 PM [facility] GLUCOSE 117(H) 70 - 99 MG/DL 09/12/2024 7:52 PM [facility] BUN 15 7 - 18 MG/DL 09/12/2024 7:52 PM [facility] CREATININE S/P/B 0.64 0.55 - 1.02 MG/DL 09/12/2024 7:52 PM [facility] CALCIUM S/P/B 9.0 8.4 - 10.5 MG/DL 09/12/2024 7:52 PM [facility] BILIRUBIN TOTAL S/P/B 0.2 0.2 - 1.0 MG/DL 09/12/2024 7:52 PM [facility] ALKALINE PHOSPHATASE S/P/B 54 37 - 98 U/L 09/12/2024 7:52 PM [facility] AST 23 15 - 37 U/L 09/12/2024 7:52 PM [facility] ALT 24 14 - 59 U/L 09/12/2024 7:52 PM [facility] TOTAL PROTEIN S/P/B 7.5 6.4 - 8.2 G/DL 09/12/2024 7:52 PM [facility] ALBUMIN S/P/B 3.9 3.4 - 5.0 G/DL 09/12/2024 7:52 PM [facility] ANION GAP 2.9(L) 5 - 15 MMOL/L 09/12/2024 7:52 PM [facility] Comment:REFERENCE RANGE NOT ESTABLISHED OSMOLALITY (CALC) 292 MOSM/KG 024 7:52 PM ICE CREAM VENDOR [facility] Comment:REFERENCE RANGE NOT ESTABLISHED GFR ESTIMATE >90 >90 ML/MIN/1. 73 M2 09/12/2024 7:52 PM ICE CREAM VENDOR [facility] GFR NOTES GFR REFERENCE S: 09/12/2024 7:52 PM ICE CREAM VENDOR [facility] Comment: THE ESTIMATED GFR IS CALCULATED USING [...] FAILURE: <15 ml/min/1.73 m2 09/12/2024 4:42 PM ICE CREAM VENDOR Alida Klein MD LABORATORY Final Result [facility] [address] [place] [phone], * (ABNORMAL) LIPID PANEL (03/25/2024 8:46 AM CDT) CHOLESTEROL 178 <200 MG/DL 03/25/2024 2:39 PM CDT [facility] TRIGLYCERIDES 96 <150 MG/DL 03/25/2024 2:39 PM CDT [facility] HDL 52 >40 MG/DL 03/25/2024 2:39 PM CDT [facility] LDL-C 107(H) <100 MG/DL 03/25/2024 2:39 PM CDT [facility] VLDL CALCULATION 19 5 - 28 MG/DL 03/25/2024 2:39 PM CDT [facility] CHOL/HDL RATIO 3.4 0.0 - 4.0 03/25/2024 2:39 PM CDT [facility] LDL/HDL 2.1 0.41 - 2.13 03/25/2024 2:39 PM CDT [facility] NON HDL CHOLESTEROL 126 <140 MG/DL 03/25/2024 2:39 PM CDT [facility] 03/25/2024 8:46 AM CDT us Alida Klein MD LABORATORY Final Result Performing Organization Address City/[facility]/ZIP Co de Phone Number [facility] [address] [place] [address], [place] [phone] * HEPATITIS C ANTIBODY (03/25/2024 8:46 AM CDT) HEPATITIS C AB NON-REACTI VE NON-REACT ANTOINETTE 03/25/2024 6:23 PM CDT [facility] Comment: ANTIBODIES TO HCV NOT DETECTED. DOES NOT EXCLUDE THE POSSIBILITY OF EXPOSURE TO HCV. 03/25/2024 8:46 AM CDT us Alida Klein MD LABORATORY Final Result [facility] [address] 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
--- OUTSIDE RECORDS SUMMARY | 2024-11-14 14:51 | XMS_ITS | Clinical Summary ---
Author Organization [facility] [employer] Address [address] [place] [address] Care Team Providers Care Screening Tech Name Role Phone Rodrigo Rizvi MD Primary Care Provider [phone] Source Comments [facility] [employer],non-owned Affiliates and Associated Physician Practices is amultiple site organization consisting of ambulatory clinics and hospital sitesin [place], [place], [place] and [place]. This disclosure is being madepursuant to the Care Everywhere program and may not contain all information available regarding this patient. Last updated 18.[facility] [employer] Allergies No known active allergies Medications * Be aware that medications may not be up to date on this document. Alwaysverify current medications with the patient. Medication Sig Dispensed Refills Start Date End Date Status acyclovir (ZOVIRAX) 400 MG tablet Take 400 mg by mouth once daily 04/20/2018 Active vitamin D, ergocalciferol, (DRISDOL) 06181 UNITS capsule 04/20/2018 Active VIENVA 0.1-20 MG-MCG [...] age to complete this topic Care Teams Screening Tech Relationship Specialty Start Date End Date Rodrigo Rizvi MD [address] [place] [phone] PCP - General 04/27/18
--- OUTSIDE RECORDS SUMMARY | 2024-11-14 14:52 | XMS_ITS | Data Portability ---
Author Organization [facility] [place] Address [address] [place] [address] [place] [address] Care Team Providers Care Radiation Officer Name Role Phone MONIAC PERALTA Primary Care Provider Assessment No assessment recorded. Plan of Treatment Reminders Order Date Submit Date Provider Last Modified By Organization Details Last Modified Time Details Appointments None recorded. Lab HBsAg (hepatitis B surface Ag), serum 2023 024 [facility] (Lab), [address] [place], [address], 4 19:49:22 Referral None recorded. Procedures None recorded. Surgeries None recorded. Imaging MAMMO, diagnostic, tomosynthes is, bilateral 2024 025 [facility] (Mammography) , [address], [place], [address], 5 04:01:13 US, pelvis [address], [address], [address], [place], [address], 4 17:32:07 US, transvagina l [address], [address], [address], [place], [address], 4 17:32:07 Medication Orders fluconazole 150 mg tablet 2024 025 [facility] [address] [facility], [place], [address], 18:25:04 Patient TargetsNo targets recorded. Patient InstructionsNo instructions recorded. Reason for Referral None Reported. Results Created Date Observation Date Name Description Value Unit Range Abnormal Flag Note LastModifiedBy Organization Detail LastModifiedTime 04/07/20 24 04/07/2024 CULTU RE: URINE result report SEE RESULT S BELOW Test: Cultu re: Urine Speci men Sourc e: Urine - Clean Catch Speci men Type: Urine Speci men Date: 2023 1120 Resul t Date: 2023 0113 Resul t Statu s: Final resul t Abnor mal: No Resul ting Lab: [facility] [address] [facility] [address] Tel: CULTU RE ----- ----- ----- --- No growt h in 1 day (dete ction level of 10,00 0 colon ies / ml.) Not Available [facility] (Lab) [address] [facility], [place], [address], 04/09/2024 02:17:26 04/07/20 24 04/07/2024 urina lysis , dipst ick pH 5 Not Available [facility] [address], [place], [address], 04/07/2024 11:33:09 04/07/20 24 04/07/2024 urina lysis , dipst ick Specific [place] 1.020 Not Available [facility] [address], [place], [address], 04/07/2024 11:33:09 04/07/20 24 04/07/2024 urina lysis , dipst ick Glucose 1000mg Not Available [facility] [address], [place], [address], 04/07/2024 11:33:09 06/06/20 24 06/06/2024 CT/GC AND TRICH OMONA S VAGIN JACOB (RRNA ), URINE chlamydia trachomatis, PCR Negati ve negati ve Not Available [facility] (Lab) [address] [facility], [place], [address], 06/07/2024 12:48:07 06/06/20 24 06/06/2024 CT/GC AND TRICH OMONA S VAGIN JACOB (RRNA ), URINE neisseria gonorrhoeae, PCR Negati ve negati ve Not Available [facility] (Lab) [address] [facility], [place], [address], 06/07/2024 12:48:07 06/06/20 24 06/06/2024 CT/GC AND TRICH OMONA S VAGIN JACOB (RRNA ), URINE trichomonas vaginalis ribosomal RNA (rrna) Negati ve negati ve Not Available [facility] (Lab) [address] [facility], [place], [address], 06/07/2024 12:48:07 06/06/20 24 06/06/2024 HBSAG /HCV/ HIV/R NC HIV antigen/anti body Nonrea ctive nonrea ctive HIV-1 antig en and HIV-1 /HIV- 2 antib odies were not detec laine. No labor atory evide nce of HIV infec tion. Not Available [facility] (Lab) [address] [facility], [place], [address], 06/07/2024 19:49:22 06/06/20 24 06/06/2024 HBSAG /HCV/ HIV/R NC hepatitis B surface antigen Non-re active non-re active This assay was perfo rmed using [employer] ratio n reage nts and test kits. Value s obtai juana with other assay metho ds or kits canno t be used inter torres eably . Not Available [facility] (Lab) [address] [facility], [place], [address], 06/07/2024 19:49:22 06/06/20 24 06/06/2024 HBSAG /HCV/ HIV/R NC hepatitis C antibody Non-re active non-re active Antib odies to HCV Not Detec laine, does not exclu de the possi bilit y of expos ure to HCV. Not Available [facility] (Lab) [address] [facility], [place], [address], 06/07/2024 19:49:22 06/06/20 24 06/06/2024 HBSAG /HCV/ HIV/R NC RPR screen Nonrea ctive nonrea ctive Not Available [facility] (Lab) [address] [facility], [place], [address], 06/07/2024 19:49:22 10/07/1910/07/2024 WOMEN 'S HEALT H SWAB PLUS, NELSY bacterial vaginosis (bv), tma Negati ve negati ve Not Available [facility] (Lab) [address] [facility], [place], [address], 10/08/2024 14:15:37 10/07/19 25 10/07/2024 WOMEN 'S HEALT H SWAB PLUS, NELSY bryson species, tma Positi ve negati ve abnormal Not Available [facility] (Lab) [address] [facility], [place], [address], 10/08/2024 14:15:37 10/07/19 25 10/07/2024 WOMEN 'S HEALT H SWAB PLUS, NELSY bryson glabrata, tma Negati ve negati ve Not Available [facility] (Lab) [address] [place], [address], 10/08/2024 14:15:37 10/07/19 25 10/07/2024 WOMEN 'S HEALT H SWAB PLUS, NELSY trichomonas vaginalis, tma Negati ve negati ve Not Available [facility] (Lab) [address] [place], [address], 10/08/2024 14:15:37 10/07/19 25 10/07/2024 WOMEN 'S HEALT H SWAB PLUS, NELSY chlamydia trachomatis, PCR Negati ve negati ve Not Available [facility] (Lab) [address] [facility], [place], [address], 10/08/2024 14:15:37 10/07/1910/07/2024 WOMEN 'S HEALT H SWAB PLUS, NELSY neisseria gonorrhoeae, PCR Negati ve negati ve Bacte rial vagin osis detec ts the [facility] bacte annika assoc iated with bacte rial vagin osis (BV): Lacto bacil dasia (L. gasse ri, L. crisp atus and L. jense lian), Gardn erell a vagin jacob, and Atopo bium vagin ae. A singl e quali tativ e resul t is repor laine base on instr ument softw are to deter mine BV posit amilcar or negat amilcar statu s. The Emmie da speci es group tests for C. albic ans, C. tropi calis , C. parap tiana is, C. dubli niens is. Testi ng is perfo rmed using the Trans cript ion Media laine Ampli ficat ion metho d. Tests for Emmie da glabr rajiv, Trich omona s vagin jacob, Chlam ydia trach omati s, and Neiss eria gonor rhoea e are also inclu ded in this panel . Not Available [facility] (Lab) [address] [facility], [place], [address], 10/08/2024 14:15:37 04/21/20 24 04/21/2024 US, pelvi s No observ ation record ed. [email or web address] [facility] [address], [place], [address], 04/21/2024 11:49:56 04/21/20 24 04/21/2024 US, trans vagin al No observ ation record ed. [email or web address] [facility] [address], [place], [address], 04/21/2024 11:50:07 0804/21/2024 US, pelvi s No observ ation record ed. [email or web address] [facility] [address], [place], [address], 04/21/2024 22:05:03 11/01/19 25 11/01/2024 US, breas t, bilat eral No observ ation record ed. [address], [place], [address], 11/03/2024 11:59:27 11/02/19 25 11/01/2024 MAMMO , danna sudheer, bilat eral No observ ation record ed. [place] [id number], [place], [address], 11/03/2024 11:59:47 Result Notes None recorded. Procedures Surgical History Date Name Laterality Status Provider Name and Address Organization Details Recorded Time 01/08/20 24 TOTAL HYSTERECTOMY, LAPAROSCOPIC, WITH BILATERAL SALPINGECTOMY (SURG) completed Rachel Agarwal [facility] 01/13/2024 14:32:15 05/28/20 23 Date of Last Pap Smear completed Kera [facility] 06/15/2023 09:31:12 09/21/19 19 [facility]2023 09:32:45 09/21/19 19 [facility]pos[facility] 06/15/2023 09:35:24 09/21/19 17 procedure on heart completed Shweta Kolb [facility] 05/28/2023 10:22:29 09/21/19 10 cholecystectomy completed Keratrae Booker [facility] 06/15/2023 09:35:53 09/21/18 90 tonsilectomy/adeno ids [facility] 06/15/2023 09:35:35 09/21/18 86 procedure on heart valve completed Shweta Kennedi [facility] 05/28/2023 10:22:18 Imaging Results Imaging Date Name Status LastModified by Organization Details LastModified Time 04/21/2024 US, pelvis completed [email or web address] [place] [address], [place], [address], 04/21/2024 11:49:56 04/21/2024 [facility], [facility]vaginal [email or web address] [address], [place], [address], 04/21/2024 11:50:07 04/21/2024 US, pelvis completed [email or web address] [place], [place], [address], 04/21/2024 22:05:03 11/01/2024 US, breast, bilateral completed [email or web address] [facility] [address], [place], [address], 11/03/2024 11:59:27 11/01/2024 MAMMO, screening, bilateral completed [facility] [address], [place], [address], 11/03/2024 11:59:47 Procedure Notes None recorded. Medical Equipment None Reported. Allergies Allergen ID Allergen Name Allergen Category Reaction Reaction Severity Criticality Documentation Date Start Date Code Code System Note Provider Name and Address Organization Details Recorded Time ethinyl estradiol / levonorge strel medicatio n cough mild Not available 05/28/2023 01197 8 RxNorm Shweta Kolb byron [facility] 10:00:37 Medications Name Sig Start Date Stop Date Status Note LastModified by Organization Details LastModified Time binaxnow cov kit home sade 06/15 completed Not Available Not Available Not Available flowflex kit test 06/15 completed Not Available Not Available Not Available [facility] 2-pk kit covid-19 06/15 completed Not Available Not Available Not Available amoxicillin 500 mg capsule TAKE 1 CAPSULE BY MOUTH TWICE DAILY 01/13 completed Not Available Not Available Not Available promethazin e-DM 6.25 mg-15 mg/5 mL oral syrup TAKE 5 ML BY MOUTH EVERY 4 TO 6 HOURS NEEDED FOR COUGH 12/24 completed Not Available Not Available Not Available loperamide 2 mg capsule TAKE 1 TABLET BY MOUTH FOUR TIMES DAILY AFTER EACH LOOSE STOOL NEEDED FOR 30 DAYS. 06/15 completed Not Available Not Available Not Available oxybutynin chloride ER 10 mg tablet,exte nded release 24 hr TAKE 1 TABLET BY MOUTH ONCE DAILY active Not Available Not Available No t Available azithromyci n 250 mg tablet TAKE 2 TABLETS BY MOUTH FOR 1 DAY THEN TAKE 1 TABLET BY MOUTH DAILY FOR 4 DAYS 06/15 completed Not Available Not Available Not Available fluconazole 150 mg tablet TAKE 1 TABLET BY MOUTH A ONE TIME DOSE active Not Available Not Available No t Available tolterodine ER 4 mg capsule,ext ended release 24 hr TAKE 1 CAPSULE BY MOUTH EVERY DAY active Not Available Not Available No t Available hydrocodone 5 mg-acetamin ophen 325 mg tablet TAKE 1 TABLET BY MOUTH EVERY 3 HOURS NEEDED FOR PAIN 03/08 completed Not Available Not Available Not Available ondansetron HCl 4 mg tablet TAKE 1 TABLET BY MOUTH EVERY 8 HOURS NEEDED active Not Available Not Available No t Available acyclovir 400 mg tablet TAKE 1 TABLET BY MOUTH TWICE DAILY 12/24 completed Not Available Not Available Not Available acyclovir 800 mg tablet TAKE 1 TABLET BY MOUTH ONCE DAILY active Not Available Not Available No t Available dicyclomine 20 mg tablet TAKE 1 TABLET BY MOUTH FOUR TIMES DAILY DIRECTED 04/21 completed Not Available Not Available Not Available prednisone 50 mg tablet TAKE 1 TABLET BY MOUTH ONCE DAILY 10/07 completed Not Available Not Available Not Available losartan 25 mg tablet TAKE 1 TABLET BY MOUTH EVERY DAY active Not Available Not Available No t Available ergocalcife rol (vitamin D2) 1,250 mcg (50,000 unit) capsule Take 1 capsule by mouth once a week active Not Available Not Available No t Available methylpredn isolone 4 mg tablets in a dose pack TAKE BY MOUTH DIRECTED ON INSIDE OF PACKAGE active Not Available Not Available No t Available albuterol sulfate HFA 90 mcg/actuati on aerosol inhaler INHALE 2 PUFFS BY MOUTH 4 TIMES DAILY NEEDED FOR SHORTNESS OF BREATH FOR WHEEZING active Not Available Not Available No t Available fluticasone propionate 50 mcg/actuati on nasal spray,suspe nsion SHAKE LIQUID AND USE 2 SPRAYS IN EACH NOSTRIL DAILY 06/15 completed Not Available Not Available Not Available sertraline 50 mg tablet TAKE 1 TABLET BY MOUTH ONCE DAILY active Not Available Not Available No t Available loratadine 10 mg tablet TAKE 1 TABLET BY MOUTH DAILY 06/15 completed Not Available Not Available Not Available naproxen 500 mg tablet TAKE 1 TABLET BY MOUTH TWICE DAILY WITH FOOD active Not Available Not Available No t Available amoxicillin 875 mg-potassiu m clavulanate 125 mg tablet TAKE 1 TABLET BY MOUTH TWICE DAILY FOR 7 DAYS 10/07 completed Not Available Not Available Not Available Adult Aspirin 81 mg tablet active Not Available Not Available No t Available nitrofurant oin monohydrate /macrocryst als 100 mg capsule TAKE 1 CAPSULE BY MOUTH EVERY 12 HOURS FOR 5 DAYS 03/08 completed Not Available Not Available Not Available Vitamin D 01/13 completed Not Available Not Available Not Available Acid Control (ranitidine ) 75 mg tablet active Not Available Not Available Not Available Jardiance 10 mg tablet TAKE 1 TABLET BY MOUTH EVERY DAY 12/24 completed Not Available Not Available Not Available Jardiance 25 mg tablet TAKE 1 TABLET BY MOUTH ONCE DAILY active Not Available Not Available No t Available Vienva 0.1 mg-20 mcg tablet TAKE 1 TABLET BY MOUTH EVERY DAY 01/13 completed Not Available Not Available Not Available BinaxNOW COVID-19 Ag Self Test kit TEST DIRECTED TODAY 06/15 completed Not Available Not Available Not Available Mounjaro 5 mg/0.5 mL subcutaneou s pen injector INJECT 5MG SUB-Q ONCE A WEEK 10/07 completed Not Available Not Available Not Available Mounjaro 2.5 mg/0.5 mL subcutaneou s pen injector ADMINISTE R 2.5 MG UNDER THE SKIN EVERY 7 DAYS FOR DIABETES 07/18 completed Not Available Not Available Not Available Ozempic 0.25 mg or 0.5 mg (2 mg/3 mL) subcutaneou s pen injector INJECT 0.25MG INTO THE SKIN EVERY 7 DAYS active Not Available Not Available No t Available Vitals Date Recorded Body height Body mass index (BMI) Body weight Systolic blood pressure Diastolic blood pressure Provider Name and Address Organization Details Last Updated DateTime 04/21/2024 167.64 cm 34.2 kg/m2 24233.58 g 104 mm[Hg] 68 mm[Hg] Carmela [facility] 4 10:03:52 Date Recorded Body height Body mass index (BMI) Body weight Systolic blood pressure Diastolic blood pressure Provider Name and Address Organization Details Last Updated DateTime 06/06/2024 167.64 cm 32.4 kg/m2 22593.07 g 116 mm[Hg] 76 mm[Hg] Myrna [facility] 4 11:51:33 Date Recorded Body height Body mass index (BMI) Body weight Systolic blood pressure Diastolic blood pressure Provider Name and Address Organization Details Last Updated DateTime 07/18/2024 167.64 cm 31.6 kg/m2 93813.1 g 120 mm[Hg] 79 mm[Hg] [facility] 17:00:28 Date Recorded Body height Body mass index (BMI) Body weight Systolic blood pressure Diastolic blood pressure Provider Name and Address Organization Details Last Updated DateTime 10/07/2024 167.64 cm 31.3 kg/m2 45899.92 g 115 mm[Hg] 76 mm[Hg] [facility] 14:30:20 Social History Question Answer Notes LastModified by Organizat ion Details LastModified Time Tobacco Smoking Status Never [facility] 06/15/2023 09:35:14 Do You Have An Advance Directive? No Information not available 07/18/2024 What Is Your Level Of Alcohol Consumption? Occasional Information not available 05/28/2023 How Many Years Have You Consumed Alcohol? 20 Information not available 05/28/2023 Are You Blind Or Do You Have Difficulty Seeing? No Information not available 05/28/2023 What Is Your Level Of Caffeine Consumption? Moderate Information not available 05/28/2023 How Much Tobacco Do You Chew? None Information not available 05/28/2023 In The 14 Days Before Symptom Onset, Have You Had Close Contact With A Laboratory-confir med COVID-19 While That Case Was Ill? No Information not available 05/28/2023 In The 14 Days Before Symptom Onset, Have You Had Close Contact With A Person Who Is Under Investigation For COVID-19 While That Person Was Ill? No Information not available 05/28/2023 Have You Been To An Area Known To Be High Risk For COVID-19? No Information not available 05/28/2023 Are You Deaf Or Do You Have Serious Difficulty Hearing? No Information not available 05/28/2023 What Type Of Diet Are You Following? REGULAR Information not available 05/28/2023 What Is The Highest Grade Or Level Of School You Have Completed Or The Highest Degree You Have Received? 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 No Information not available 05/28/2023 Have You Ever Been Counseled For Unhealthy Alcohol Use? No [email or web address] Information not available 06/15/2023 Do You Use Protection During Sex? No Information not available 05/28/2023 Do You Use Your Seat Belt Or Car Seat Routinely? Yes Information not available 05/28/2023 Do You Have Smoke And Carbon Monoxide Detectors In Your Home? Yes Information not available 05/28/2023 How Much Tobacco Do You Smoke? No Information not available 05/28/2023 Do You Feel Stressed (tense, Restless, Nervous, Or Anxious, Or Unable To Sleep At Night)? [id number] Information not available 05/28/2023 Do You Use Any Illicit Or Recreational Drugs? Yes Information not available 05/28/2023 Do You Use Sunscreen Routinely? Yes Information not available 05/28/2023 Has Tobacco Cessation Counseling Been Provided? No [email or web address] Information not available 06/15/2023 Have You Used IV Drugs? No Information not available 05/28/2023 Do You Or Have You Ever Used Any Other Forms Of Tobacco Or Nicotine? No [email or web address] Information not available 06/15/2023 Sex: Unknown Functional Status Question Answer Note LastModified by Organizat ion Details LastModified Time Do you have difficulty walking or climbing stairs? No Information not available 06/15/2023 Are you able to walk? [email or web address] Information not available 05/28/2023 Are you able to care for yourself? Yes [email or web address] Information not available 06/15/2023 Do you have difficulty dressing or bathing? No [email or web address] Information not available 06/15/2023 What is your exercise level? Occasional Information not available 05/28/2023 Mental Status None recorded. Family History Relationship Description Onset Age of this Age Resolved Age Notes LastModified by Organization Details LastModified Time Paternal Grandmother Heart disease Not available 2022 10:12:37 Paternal Grandmother Diabetes mellitus Not available 2022 10:12:37 Mother Asthma Not available 05/28/2023 10:12:37 Paternal Grandfather Heart disease Not available 2022 10:12:37 Father Diabetes mellitus Not available 2022 10:12:37 Medical History Condition Response Allergies (Food, seasonal, environmental ) Y Other N Breast Cancer N Drug/Latex Allergies/Reactions Y Blood Transfusion N Lung Disease N Dermatologic Disorders N Defects or Inherited Disease Y Breast Problem N Gestational Diabetes N Hematologic disorders N Anesthesia Complications N History of STI Y Deep Vein Thrombosis N Polycystic ovary syndrome Y Anxiety Disorder Y Autoimmune disease N Arthritis N Polyps N Infertility N History of abnormal pap Y Acid Reflux (GERD) Y Cancer N Varicosities N Stroke N Neurologic/Epilepsy N Endometriosis N High Cholesterol N Fibromyalgia N Headaches N Kidney Disease N Heart Problems Y Kidney or Bladder Problems N Thyroid Problems N GI Problems Y Eating Disorder N Anemia N Art (IVF or FET) N Psychiatric Illness N Ovarian Cancer N Diabetes Y Pulmonary (TB, Asthma) N Hepatitis/Liver Disease N No Past Medical History N Eczema N Urinary Tract Infection Y Abuse/Domestic Violence N Asthma N Trauma/Violence N Depression/ depression Y Heart Disease N Pre-Eclampsia N Hypertension Y Osteoporosis N Thrombophilias N Gynecological History Statement/Question Response Abnormal Pap Y Date of LMP On BCP's at Conception? N N Was last menstrual period normal N STIs/STDs Yes HPV Vaccine N Colposcopy 09/21/2018 Current Control Method Hysterectom y Age at First Child 19 Sexually Active? Y Hysterectomy Menses Monthly N Age of first menstrual cycle 12 Date of Last Pap Smear 05/28/2023 Sexual Problems? Yes Desired Control Method Hysterectom y LMP Unknown N 06/21/2019 Obstetrics History GPAL:G 2 P 2 0 0 2 Type Value Full Term 2 Living 2 Total 2 Past Encounters Encounter ID Performer Location Encounter Start Date Encounter Closed Date Diagnosis/Indication Diagnosis SNOMED-CT Code Diagnosis ICD10 Code Diagnosis Note [id number] Jake Humphreys MD [facility] [address] [address] 05/28/2023 09:54:29 05/28/2023 11:10:40 Dyspareunia 45041758 N94.10 30-year-ol d with severe dyspareuni a. It affects her quality of life, activities daily living, her sexual relationsh ip with her significan t other. She has marked cervical motion tenderness , parametria l tenderness , adnexal tenderness , pelvic sidewall tenderness . Some hyperemic tissue on the cervix, Pap smear was performed on the tissue. To obtain pelvic ultrasound , we discussed treatment options, patient is favoring a hysterecto my. Pain in pelvis 20340981 R10.2 Vaginal dryness 77038025 N89.8 [id number] Selma Patton [facility] [address] [address] 06/11/2023 09:14:33 06/11/2023 09:51:48 Dyspareunia 07237131 N94.10 30-year-ol d with severe dyspareuni a. It affects her quality of life, activities daily living, her sexual relationsh ip with her significan t other. She has marked cervical motion tenderness , parametria l tenderness , adnexal tenderness , pelvic sidewall tenderness . Some hyperemic tissue on the cervix, Pap smear was performed on the tissue. To obtain pelvic ultrasound , we discussed treatment options, patient is favoring a hysterecto my. 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 It is causing tension in their marriage. She has trouble with pelvic pain day today. Patient does not have a family history of endometrio sis. She has painful periods. she has marked uterine tenderness and cervical motion tenderness along with parametria l tenderness on examinatio n that was performed at our last visit. We talked about treatment options today. She has failed medical treatments for dyspareuni a. It is clear that she requires hysterecto my for relief of this pain. Her sister has gone through the same thing , And it was relieved with hysterecto my. I described procedure the patient in detail. We talked about ovarian preservati on salpingect subha. Talked about some risk. She understand s the procedure. We spent over 40 minutes face-to-fa ce. More than 50% was counseling . Made a decision to perform surgery. Pain in pelvis 52467083 R10.2 Dysmenorrhea [id number] N 94.6 [id number] Jake Humphreys MD [facility] [address] [address] 11/20/2023 09:07:47 11/20/2023 10:21:52 Dysmenorrhea 018708271 N94.6 Dyspareunia 72688720 N94 .10 Lesion of endometrium 92 [id number] 9101 N85.9 Menorrhagia 950149153 N9 2.0 This patient is a 38-year-ol d female who presents to discuss new problems. She recently had to discontinu e her combined oral contracept amilcar pills due to a cardiac condition. After discontinu ation of the pill she is severe menorrhagi a. She was taking the pill for severe menorrhagi a and severe dysmenorrh ea. The dysmenorrh ea menorrhagi a affect her life significan tly periods affects her activities of daily living and her quality of life. The dysmenorrh ea menorrhagi a combined with her dyspareuni a affect her relationsh ips with her significan t other. Is putting a strain on her marriage. Patient is now unable to take hormonal contracept ion. She would like definitive surgical for menorrhagi a and dysmenorrh ea. patient has a family history of endometrio sis. She also Has an endometria l lesion that was observed on ultrasound . There was concern about this endometria l lesion. After discussing these findings. We agreed that hysterecto my would be her best course of action. We will eliminate her four different problems. she was beginning to fail her hormonal contracept ion and now she can not even take it. We agreed to total laparoscop ic hysterecto my and bilateral salpingect subha. She understand s the procedure. It was described to her in detail. We spent 40 minutes face-to-fa ce. We made a decision to perform surgery. More than 50% of our Meeting was counseling . [id number] Jake Humphreys MD [facility] [address] [address] 12/28/2023 16:49:29 12/29/2023 00:16:02 Menorrhagia [id number] N92.0 this patient is a 30-year-ol d female with severe menorrhagi a. We have agreed to perform total laparoscop ic hysterecto my, bilateral salpingect subha, and right oophorecto my. She understand s risks, benefits, and alternativ es. She is completed the informed consent process and is ready to proceed. [id number] Jake Humphreys MD [facility] [address] [address] 01/14/2024 09:42:58 01/14/2024 10:30:23 Postoperative care [id number] Z48.89 female Patient presents for postop follow-up. She is 1 week postop from a total laparoscop ic hysterecto my bilateral salpingect subha. She has no complaints . Her incisions are clean dry and intact. She is recovering normally. She will follow-up as needed. [id number] Myrna Han [facility] [address] [address] 01/26/2024 12:35:54 01/27/2024 11:06:36 Urinary tract infectious disease [id number] N39.0 [id number] Jake Humphreys MD [facility] [address],[place] [address] 03/08/2024 09:40:27 03/08/2024 10:31:55 Postoperative pain [id number] G89.18 38-year-ol d who is 8 weeks postop from a laparoscop ic hysterecto my. She had pain with intercours e. She went to the emergency department . She had a normal CT scan. She was examined today. The vaginal cuff is intact and normal. Palpation of the vagina revealed tenderness of the anterior vaginal wall /bladder. She was evaluated for urinary tract infection yesterday. She did not have urinary tract infection. We discussed the findings and symptoms. We agreed to observe for 1 month. She will return in 1 month. This may just be results of recovery from the surgery. spent more than 20 minutes with the patient. More than 50% was counseling . She was examined. [id number] Jake Humphreys MD [facility] [address] [address] 04/07/2024 11:20:44 04/07/2024 12:51:08 Dysuria [id number] R30.0 Chronic in terstitial cystitis [id number] N30.10 Dyspareunia [id number] N94 .10 this patient is a 39 old female presents for persistent postoperat amilcar dyspareuni a, urinary urgency, pain with a full bladder. She is symptoms of interstiti al cystitis. I intend to send her to Dr. Denton of [facility] [place] for evaluation and treatment. We will obtain pelvic ultrasound . We need to examine her existing ovary and pelvis. Her pain has improved with intercours e. It occurs after intercours e and persists for several hours. She is tender anterior vagina /bladder area. This was identified on a previous exam. I spent more than 20 minutes on her care. [id number] Selma Patton [facility] [address] [address] 04/21/2024 09:25:12 04/21/2024 10:02:12 Pain in pelvis [id number] R10.2 [id number] Jake Humphreys MD [facility] [address] [address] 04/21/2024 09:25:35 04/21/2024 11:42:57 Dyspareunia [id number] N94.10 this patient is a 39-year-ol d female presents for ultrasound follow-up and follow-up on dyspareuni a. She had pain after intercours e along with tenderness of the anterior vaginal wall. she also reported some symptoms of interstiti al cystitis. She has a consult with Dr. Denton for interstiti al cystitis. She is not sexually active at this time. She may have more healing to do. Her surgery was less than 4 months ago. She will follow-up as needed. Look forward to Dr. Miller consult. [id number] NEEL CACERES MD [facility] [address] [address] 06/06/2024 11:32:49 06/06/2024 12:46:43 Postcoital bleeding [id number] N93.0 - patient reports one episode of postcoital bleeding 2 weeks ago as well as 1 clot when house cleaning yesterday- no pain- exam significan t for small area of granulatio n tissue at vaginal cuff, cuff otherwise intact and normal- silver nitrate applied without issue Venereal d isease screening [id number] Z11.3 - will send urine CT/GC/Tric h- blood testing ordered [id number] Jake Humphreys MD [facility] [address] [address] 07/18/2024 16:45:59 07/18/2024 17:36:52 Postcoital bleeding [id number] N93.0 this patient is a 39-year-ol d female who presents for postcoital bleeding. She was having penetratio n with a sex toy. Afterwards she had some bright red bleeding. A 5 mm to 10 mm fleshy object came out of the vagina. Vagina was examined today. It is intact. The vaginal cuff shows no signs of granulatio n tissue. There was no breaks in the skin anywhere that can be visualized . We agreed to observe her bleeding issue. She will contact us if there are problems. [id number] NEEL CACERES MD [facility] [address] [address] 10/07/2024 14:23:12 10/10/2024 10:33:28 Mass of left breast [id number] N63.20 - new left breast mass since Thursday- not painful- no nipple discharge- no family hx of breast cancer- exam demonstrat es possible 2cm mass vs fibrocysti c tissue- diagnostic mammogram ordered Vaginitis [id number] N76.0 - thick white discharge and external irritation - swab sent- rx for diflucan sent Health Concerns Section Related Observation LastModified by Organization Detai ls LastModified Time None Recorded Concern Status LastModified by Organization Details LastModified Time None Recorded Advance Directives Directive N: Payers Encounter Date Sequence Insurance Name Policy Number Policy Barton Covered Member ID Barton Member ID Guarantor Name 04/21/2024 1 [facility] [id number] Destini Dilallo [id number] Destini Dilallo 04/21/2024 1 [place] [id number] Destini Dilallo [id number] Destini Dilallo 06/06/2024 1 [facility] [id number] Destini Dilallo [id number] Destini Dilallo 07/18/2024 1 [facility] [id number] Destini Dilallo [id number] Destini Dilallo 10/07/2024 1 [facility] [id number] Destini Dilallo [id number] Destini Dilallo Notes Date Note Type Note Provider Name and Address Organization Details Recorded Time 04/21/2024 text/html this patient is a 39-year-old female presents for ultrasound follow-up and follow-up on dyspareunia. She had pain after intercourse along with tenderness of the anterior vaginal wall. she also reported some symptoms of interstitial cystitis. She has a consult with Dr. Denton for interstitial cystitis. She is not sexually active at this time. She may have more healing to do. Her surgery was less than 4 months ago. She will follow-up as needed. Look forward to Dr. Miller consult. Jake Humphreys MD [address], [place], [address], [facility] 04/21/2024 11:34:49 06/06/2024 text/html Patient presents for evaluation of postcoital bleeding. She reports an episode of postcoital bleeding 2 weeks ago, nonpainful. She reports bleeding on the toilet paper, did not need to wear a pad. Yesterday while cleaning, she had another episode of bleeding, one clot then nothing more. No pain with bleeding. NEEL CACERES MD [address], [place], [address], [facility] 06/06/2024 12:23:47 07/18/2024 text/html this patient is a 39-year-old female who presents for postcoital bleeding. She was having penetration with a sex toy. Afterwards she had some bright red bleeding. A 5 mm to 10 mm fleshy object came out of the vagina. Vagina was examined today. It is intact. The vaginal cuff shows no signs of granulation tissue. There was no breaks in the skin anywhere that can be visualized. We agreed to observe her bleeding issue. She will contact us if there are problems. Jake Humphreys MD [address], [place], [address], [facility] 07/18/2024 17:31:47 10/07/2024 text/html Patient presents for vaginitis evaluation and breast exam. Reports vaginal irritation since Thursday, recent antibiotic usage. No abnormal discharge. Also reports new left breast lump noticed Thursday. No hx of breast lump. No family hx of breast cancer. No pain. No nipple discharge. Recent norovirus, URI illnesses over the past 2-3 weeks. NEEL CACERES MD [address], [place], [address], [facility] 10/07/2024 18:31:28 OBGyn Episode Ob Episode Information Episode Created Date Number of Fetuses Patient Bloodtype Patient rh Status Prepregnancy Weight lbs Domestic Partner Domestic Partner Phone Father Name Process Assistant Status 06/15/20 1 CLOSED Fetus Data First Name Last Name Admitted to NICU Weight (g) Sex Living Outcome Pediatric Complications Fetus ID Race Codes Race Delivery Type 4167.14 9704 M Full Term [id number] Vaginal Delivery Gilberto Calculation Initial Gilberto Date Initial Exam Date Initial Exam Provider Initial Ultrasound Date Last Menstrual Period Date Ultra Sound Weeks Gestation 0 Eighteen To Twenty Week Gilberto Update Ultra Sound Date Fundal Height At Umbil Quickening Date Ultra Sound Latest Weeks Gestation Final Gilberto Confirmed By Final Gilberto Confirmed Date Final Gilberto Date Ultra Sound Latest Days Gestation 0 0 Menstrual History Last Menstrual Date Menses Monthly On Bcp Conception Prior Menses Frequency Hcg Plus Date Menarche Onset Age Delivery Information Delivery Date Delivery Type Labor Anesthesia Weeks Gestation Incision Type Labor Labor Length Hrs Delivered By Post Complications Tubal Sterilization Discharge Date Comments 6 Discharge Information Feeding Method Contraceptive Method Maternal HG B and HCT Levels Ob Episode Information Episode Created Date Number of Fetuses Patient Bloodtype Patient rh Status Prepregnancy Weight lbs Domestic Partner Domestic Partner Phone Father Name Process Assistant Status 06/15/20 1 CLOSED Fetus Data First Name Last Name Admitted to NICU Weight (g) Sex Living Outcome Pediatric Complications Fetus ID Race Codes Race Delivery Type 3713.55 [id number] F Full Term [id number] Vaginal Delivery Gilberto Calculation Initial Gilberto Date Initial Exam Date Initial Exam Provider Initial Ultrasound Date Last Menstrual Period Date Ultra Sound Weeks Gestation 0 Eighteen To Twenty Week Gilberto Update Ultra Sound Date Fundal Height At Umbil Quickening Date Ultra Sound Latest Weeks Gestation Final Gilberto Confirmed By Final Gilberto Confirmed Date Final Gilberto Date Ultra Sound Latest Days Gestation 0 0 Menstrual History Last Menstrual Date Menses Monthly On Bcp Conception Prior Menses Frequency Hcg Plus Date Menarche Onset Age Delivery Information Delivery Date Delivery Type Labor Anesthesia Weeks Gestation Incision Type Labor Labor Length Hrs Delivered By Post Complications Tubal Sterilization Discharge Date Comments 5 Discharge Information Feeding Method Contraceptive Method Maternal HG B and HCT Levels
--- OUTSIDE RECORDS SUMMARY | 2024-11-14 14:52 | XMS_ITS | Encounter Summary ---
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 Gender Identity Female 03/25/2024 3:16 PM CDT Sexual Orientation Straight 03/25/2024 3: 16 PM CDT documented as of this encounter Plan of Treatment Upcoming Encounters Date Type Department Care Team (Late st Contact Info) Description 12/12/2024 4:00 PM CDT Office Visit [facility] [place] [address] [address] [place] [address] Alida Klein MD [address] [place] [address] documented as of this encounter Visit Diagnoses Not on filedocumented in this encounter Additional Health Concerns Infection Onset Date Last Indicated Resolved Time COVID-19 Rule Out 09/30/2024 09/30/2024 09/30/2024 3:56 PM COMPLETIONS MANAGER documented as of this encounter Care Teams Heel Builder Relationship Specialty Start Date End Date Alida Klein MD [address] [place] [address] PCP - General INTERNAL MEDICINE 03/23/24 documented as of this encounter
--- OUTSIDE RECORDS SUMMARY | 2024-11-14 14:52 | XMS_ITS | Encounter Summary ---
Author Organization 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 Gender Identity Female 03/25/2024 3:16 PM CDT Sexual Orientation Straight 03/25/2024 3: 16 PM CDT documented as of this encounter Plan of Treatment Upcoming Encounters Date Type Department Care Team (Late st Contact Info) Description 12/12/2024 4:00 PM CDT Office Visit [facility] Multispecialty Care [place] [address] [address] [place] [address] Alida Klein MD [address] [place] [address] documented as of this encounter Visit Diagnoses Not on filedocumented in this encounter Additional Health Concerns Infection Onset Date Last Indicated Resolved Time COVID-19 Rule Out 09/30/2024 09/30/2024 09/30/2024 3:56 PM REGIONAL REFRIGERATED 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
--- OUTSIDE RECORDS SUMMARY | 2024-11-14 14:52 | XMS_ITS | Encounter Summary ---
Author Organization [facility] Address [facility] [place] [address] Care Team Providers Care Utility Sales And Service Manager Name Role Phone Alida Klein MD Primary Care Provider [phone] Encounter Details Date Type Department Care Team (Late st Contact Info) Description 05/04/2024 MyChart Message Enc 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 Multispecialty Care [place] [address] [address] [place] [address] Aldia Klein MD [address] [address] documented as of this encounter Visit Diagnoses Not on filedocumented in this encounter Additional Health Concerns Infection Onset Date Last Indicated Resolved Time COVID-19 Rule Out 09/30/2024 09/30/2024 09/30/2024 3:56 PM POWDER GUARD documented as of this encounter Care Teams Utility Sales And Service Manager Relationship Specialty Start Date End Date Alida Klein MD [address] [place] [address] PCP - General INTERNAL MEDICINE 03/23/24 documented as of this encounter
--- OUTSIDE RECORDS SUMMARY | 2024-11-14 14:52 | XMS_ITS | Encounter Summary ---
Author Organization [facility] Address [facility] [place] [address] Care Team Providers Care Market Development Analyst Name Role Phone Alida Klein MD Primary Care Provider [phone] Encounter Details Date Type Department Care Team (Late st Contact Info) Description 05/20/2024 MyChart Message Enc [facility] Medical [facility] Multispecialty Care - [place] [address] [address] [place], [place] [phone] Alida Klein MD [address] [place] [address] [address] [place], [place] [id number] Lab results. 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 Gender Identity Female 03/25/2024 3:16 PM CDT Sexual Orientation Straight 03/25/2024 3: 16 PM CDT documented as of this encounter Plan of Treatment Upcoming Encounters Date Type Department Care Team (Late st Contact Info) Description 12/12/2024 4:00 PM CDT Office Visit [facility] Multispecialty Care - [place] [address] [address] [place] [address] Alida Klein MD [address] [place] [address] documented as of this encounter Visit Diagnoses Not on filedocumented in this encounter Additional Health Concerns Infection Onset Date Last Indicated Resolved Time COVID-19 Rule Out 09/30/2024 09/30/2024 09/30/2024 3:56 PM GARLAND MAKER documented as of this encounter Care Teams Market Development Analyst Relationship Specialty Start Date End Date Alida Klein MD [address] [place] [address] PCP - General INTERNAL MEDICINE 03/23/24 documented as of this encounter
== END 2024-11-14 14:25 | disposition home or self-care (01) ==
PROVIDERS: Emergency Provider Emergency Medicine; PCP Internal Medicine
DX: J10.1 Influenza due to other identified influenza virus with other respiratory manifestations (principal); R51.9 Headache, unspecified; Z20.822 Contact with and (suspected) exposure to COVID-19; N30.10 Interstitial cystitis (chronic) without hematuria; K21.9 Gastro-esophageal reflux disease without esophagitis; F41.8 Other specified anxiety disorders; Z95.2 Presence of prosthetic heart valve; Z90.49 Acquired absence of other specified parts of digestive tract; Z79.82 Long term (current) use of aspirin; Z79.84 Long term (current) use of oral hypoglycemic drugs; Z79.899 Other long term (current) drug therapy
CPT/HCPCS: 71045; 87637; 96372; 99283; J1885

== ENCOUNTER 2025-01-01 09:40 | Emergency (ER) | payer OTHER, SELFPAY ==
[2025-01-01 09:48] VITALS: BP 116/67; PULSE 66; RESP 20; TEMP 36.6; O2SAT 99
--- NOTE | 2025-01-01 09:48 | ED.URI ---
HPI - URI/Sore Throat General Chief Complaint: Upper Respiratory Infection Stated Complaint: sore throat Time Seen by Provider: 01/01/25 09:50 Source: patient Mode of arrival: ambulatory Limitations: no limitations History of Present Illness HPI Narrative: Destini is a 39-year-old female patient presenting to the clinic today with complaints of a sore throat times 2-3 days. Reports that her boyfriend's daughter tested positive for strep in she gets strep very easily. States she has a sore throat and chills. No runny nose, cough, headache, or body aches. Related Data Home Medications ?Medication ?Instructions ?Recorded ?Confirmed ?Last Taken ?Type aspirin 81 mg tablet,delayed 81 mg PO DAILY 05/06/20 11/14/24 11/13/24 History release (Adult Low Dose Aspirin) ergocalciferol (vitamin D2) 1,250 1,250 mcg PO WEEKLY 05/06/20 11/14/24 11/13/24 History mcg (50,000 unit) capsule (Vitamin D2) sertraline 50 mg tablet 75 mg PO HS 05/06/20 11/14/24 11/13/24 History famotidine 20 mg tablet (Pepcid AC) 20 mg PO DAILY 06/20/20 11/14/24 11/13/24 History levonorgestrel-ethinyl estradiol 1 tablet PO HS 08/17/20 11/14/24 11/13/24 History 0.1 mg-20 mcg tablet (Vienva) L.acidop,casei,lactis,rham-B.lact,vannessa 1 cap PO DAILY 12/28/23 11/14/24 11/13/24 History 625 mg (10 billion cell) capsule (Advanced Probiotic) acyclovir 800 mg tablet mg 01/01/25 Unknown History empagliflozin 25 mg tablet mg 01/01/25 Unknown History (Jardiance) oxybutynin chloride 10 mg mg PO 01/01/25 Unknown History tablet,extended release 24 hr Allergies Allergy/AdvReac Type Severity Reaction Status Date / Time [place] And Derivatives AdvReac Mild Nausea and Verified 01/01/25 09:53 Vomiting Review of Systems Review of Systems: Pertinent positives per HPI. Patient denies any fever, chills, rash, headache, visual changes, dizziness, cough, shortness of breath, chest pain, palpitations, nausea, vomiting, diarrhea, constipation, abdominal pain, or any urinary issues. COUNT INCLUDES THE [facility] Past Medical History Medical History Depression with anxiety GERD (gastroesophageal reflux disease) Hx of pulmonary artery stenosis Interstitial cystitis Pulmonary stenosis Surgical History Surgical History Hx of cholecystectomy Hx of mitral valve replacement Hx of tonsillectomy Pulmonary valve replaced Family History Family History Father Diabetes mellitus Lung cancer Social History Social History Smoking status: Never smoker Alcohol intake: current Alcohol use details: VERY RARE Substance use: current Substance use type: marijuana Living arrangements: with family Gender identity (if verbalized by the patient): Female Spiritual care concerns: No Comments At the time of my signature, I reviewed and agree with the nursing past medical, surgical, social, and family history. There is no relevant family history pertinent to the patient complaint. Exam Narrative: General: Well-developed, well nourished, in no apparent distress Head: Normocephalic, atraumatic Eyes: Pupils equally round and reactive to light bilaterally, EOM intact, sclera and conjunctive clear, no discharge, lids normal Ears: TMs intact and clear, ear canals clear, no drainage, grossly hearing normal. Nose: Nares patent, clear nasal discharge, no inflammation, no sinus tenderness. Mouth: Oral pharynx without lesions or masses, good dentition, MMM. Postnasal drip Neck: Supple, trachea midline, no enlargement of anterior or posterior cervical nodes, no thyroid masses or goiter palpable. Cardio: Regular rate and rhythm, s1 and s2 normal, no murmur appreciated. Resp: Clear to auscultation bilaterally, no rhonchi, rales, wheezing or rubs Course Course Emergency Course: Portions of this record may have been created with voice recognition software. Level of Care: Express Care Visit Vital Signs Vital signs: Vital Signs Temperature 36.6 C 01/01/25 09:48 Pulse Rate 66 01/01/25 09:48 Respiratory Rate 20 01/01/25 09:48 Blood Pressure 116/67 01/01/25 09:48 Pulse Oximetry 99 01/01/25 09:48 Oxygen Delivery Room Air 01/01/25 09:48 Temperature 36.6 C 01/01/25 09:48 Pulse Rate 66 01/01/25 09:48 Respiratory Rate 20 01/01/25 09:48 Blood Pressure 116/67 01/01/25 09:48 Pulse Oximetry 99 01/01/25 09:48 Oxygen Delivery Room Air 01/01/25 09:48 Vital signs reviewed MDM - URI/Sore Throat MDM Narrative Medical decision making narrative: At the time of visit patient is resting comfortably on the exam table. Patient appears to be nontoxic. Labs: Strep test was negative in the clinic today. We will send strep for culture Plan: I suspect patient has pharyngitis/postnasal drip. Supportive measures were discussed with the patient and they voiced understanding discharge instructions and agrees to treatment plan. Return precautions reviewed Differential Diagnosis Differential diagnosis: Likely upper respiratory infection, otitis media, sinusitis, viral infection, bronchitis, influenza, pharyngitis and other (COVID) Discharge Plan Discharge Clinical Impression: Pharyngitis Qualifiers: Pharyngitis/tonsillitis etiology: unspecified etiology Qualified Code(s): J02.9 - Acute pharyngitis, unspecified Patient Disposition: Home Condition: Stable Instructions: Antibiotic Form, Pharyngitis (ED) Additional Instructions: Strep test was negative in the clinic today. We will send strep for culture if this comes back positive we will contact you in place you on antibiotics at that time. Increase fluids and stay well hydrated Tylenol/motrin for pain/fever Flonase and OTC antihistamines as directed Vicks vapor rub to open sinuses Sinus rinses for congestion Cepacol spray, cough drops, throat lozenges, warm tea with honey/lemon, gargle salt water to soothe throat BRAT diet for diarrhea Clear liquids x 24 hours then advance as tolerated for nausea/vomiting Go to the ED if you develop a worsening in your condition- high fever not controlled by Tylenol or Motrin, dehydration, weakness, lethargy, shortness of breath, or chest pain. Follow up with your PCP in 3-5 days if symptoms persist. Patient Language: Hebrew Prescriptions: No Action levonorgestrel-ethinyl estrad [Vienva] 0.1-20 mg-mcg tablet 1 tablet PO HS sertraline 50 mg Tablet 75 mg PO HS aspirin [Adult Low Dose Aspirin] 81 mg Tablet,Delayed Release (Dr/Ec) 81 mg PO DAILY ergocalciferol (vitamin D2) [Vitamin D2] 1,250 mcg (50,000 unit) Capsule 1,250 mcg PO WEEKLY Patient Comments: PT TAKES ON THURSDAY famotidine [Pepcid AC] 20 mg Tablet 20 mg PO DAILY oxybutynin chloride 10 mg tablet extended release 24hr PO acyclovir 800 mg tablet Jardiance 25 mg tablet albuterol sulfate 90 mcg/actuation HFA aerosol inhaler 1 puff inhalation QID Qty: 6.7 0RF Advanced Probiotic 625 mg (10 billion cell) Capsule 1 cap PO DAILY Follow-up/Referrals: Latoya,MD Alida [Primary Care Provider] - Time of Disposition: 10:00 Quality NIHSS Nursing Documentation ED NIHSS nursing documentation: reviewed/agree
[2025-01-01 10:24] LABS: EDSTREPNEGPOS1 Negative (Negative)
== END 2025-01-01 10:10 | disposition home or self-care (01) ==
PROVIDERS: Emergency Provider Nurse Practitioner Family; PCP Internal Medicine
DX: J02.9 Acute pharyngitis, unspecified (principal); Z79.899 Other long term (current) drug therapy
CPT/HCPCS: 87081; 87880; 99213; G0463

== ENCOUNTER 2025-01-09 13:00 | Emergency (ER) | payer OTHER, SELFPAY ==
[2025-01-09 13:32] VITALS: BP 133/74; PULSE 65; RESP 16; TEMP 36.7; O2SAT 99
--- NOTE | 2025-01-09 13:42 | ED_ITS ---
HPI - Nausea/Vomiting/Diarrhea General Chief complaint: Nausea/Vomiting/Diarrhea <Nancy Croft APRN - Last Filed: 01/09/25 13:45> Stated complaint: Poss food poisoning-N/V/D since thursday <Nancy Croft APRN - Last Filed: 01/09/25 13:45> Time Seen by Provider: 01/09/25 17:29 <Nancy Croft APRN - Last Filed: 01/09/25 13:45> Focused HPI: Patient is a 39-year-old female who presents to the ER with complaints of nausea and vomiting that started on Thursday, 3 days ago. She reports she ate at [employer] and believes that she got food poisoning. Patient reports she currently has a headache, her urine output has gone down, and she has been unable to eat or drink anything. She reports she had a bowel movement this morning and it was normal for her. Patient or sys a history of pulmonary stenosis, right ventricular valve replacement, hysterectomy, and cholecystectomy. GENERAL: Well-appearing, well-nourished, and in no acute distress. HEAD: Normocephalic, atraumatic. CHEST: Clear to auscultation. ?No respiratory distress. HEART: Regular rate and rhythm.? NEURO: ?Alert and oriented x3. Patient screened in triage and initial orders placed.? ?Additional care and disposition to be based upon?diagnostic testing and treatment. <Nancy Croft APRN - Last Filed: 01/09/25 13:45> History of Present Illness HPI Narrative: Agree with the HPI above. Patient states that she is not vomiting anymore in her diarrhea since stopped but she just feels dehydrated and occasionally retching. Endorses marijuana use but no other substance use. <Cleveland Francisco MD - Last Filed: 01/09/25 19:27> Related Data Home medications: Home Medications ?Medication ?Instructions ?Recorded ?Confirmed ?Last Taken ?Type aspirin 81 mg tablet,delayed 81 mg PO DAILY 05/06/20 11/14/24 11/13/24 History release (Adult Low Dose Aspirin) ergocalciferol (vitamin D2) 1,250 1,250 mcg PO WEEKLY 05/06/20 11/14/24 11/13/24 History mcg (50,000 unit) capsule (Vitamin D2) sertraline 50 mg tablet 75 mg PO HS 05/06/20 11/14/24 11/13/24 History famotidine 20 mg tablet (Pepcid AC) 20 mg PO DAILY 06/20/20 11/14/24 11/13/24 History levonorgestrel-ethinyl estradiol 1 tablet PO HS 08/17/20 11/14/24 11/13/24 History 0.1 mg-20 mcg tablet (Vienva) L.acidop,casei,lactis,rham-B.lact,vannessa 1 cap PO DAILY 12/28/23 11/14/24 11/13/24 History 625 mg (10 billion cell) capsule (Advanced Probiotic) acyclovir 800 mg tablet mg 01/01/25 Unknown History empagliflozin 25 mg tablet mg 01/01/25 Unknown History (Jardiance) oxybutynin chloride 10 mg mg PO 01/01/25 Unknown History tablet,extended release 24 hr <Nancy Croft APRN - Last Filed: 01/09/25 13:45> Allergies/Adverse reactions: Allergies Allergy/AdvReac Type Severity Reaction Status Date / Time [place] And Derivatives AdvReac Mild Nausea and Verified 01/01/25 09:53 Vomiting <Nancy Croft APRN - Last Filed: 01/09/25 13:45> Review of Systems 2 Review of Systems: As reviewed above in HPI <Cleveland Francisco MD - Last Filed: 01/09/25 19:27> [facility] Past Medical History Medical History: Medical History Interstitial cystitis Pulmonary stenosis Depression with anxiety GERD (gastroesophageal reflux disease) Hx of pulmonary artery stenosis <Nancy Croft APRN - Last Filed: 01/09/25 13:45> Surgical History Surgical History: Surgical History Pulmonary valve replaced Hx of cholecystectomy Hx of mitral valve replacement Hx of tonsillectomy <Nancy Croft APRN - Last Filed: 01/09/25 13:45> Family History Family History: Family History Father Diabetes mellitus Lung cancer <Nancy Croft, DOMINIQUE - Last Filed: 01/09/25 13:45> Social History Social History: Social History Smoking status: Never smoker Alcohol intake: current Alcohol use details: VERY RARE Substance use: current Substance use type: marijuana Living arrangements: with family Gender identity (if verbalized by the patient): Female Spiritual care concerns: No <Nancy Croft, PHYSICAL METEOROLOGIST - Last Filed: 01/09/25 13:45> Exam 2 Narrative: GENERAL: [Well-appearing, well-nourished, and in no acute distress.] HEAD: [Normocephalic, atraumatic.] EYES: [PERRLA and EOMI.] ENT: Nares clear, no rhinorrhea or epistaxis. Mucous membranes moist. NECK: Supple. CHEST: [Clear to auscultation. No respiratory distress.] HEART: [Regular rate and rhythm]. No murmur heard. [Normal peripheral pulses.] ABDOMEN: [Soft, nondistended], [nontender], [No rigidity or guarding] EXTREMITIES: Normal range of motion. [No edema.] SKIN: Warm, dry, no rash. NEURO: [No focal deficits]. Alert and oriented [x3.] PSYCH: [Normal mood and affect.] <Cleveland Francisco MD - Last Filed: 01/09/25 19:27> Course Vital Signs Vital signs: Vital Signs Temperature 36.7 C 01/09/25 13:32 Pulse Rate 65 01/09/25 13:32 Respiratory Rate 16 01/09/25 13:32 Blood Pressure 133/74 01/09/25 13:32 Pulse Oximetry 99 01/09/25 13:32 Oxygen Delivery Room Air 01/09/25 13:32 Temperature 36.7 C 01/09/25 15:11 Pulse Rate 69 01/09/25 17:36 Respiratory Rate 16 01/09/25 17:36 Blood Pressure 129/76 01/09/25 17:36 Pulse Oximetry 98 01/09/25 17:36 Oxygen Delivery Room Air 04/21/25 13:32 <Nancy Croft APRN - Last Filed: 01/09/25 13:45> Vital Signs Temperature 36.7 C 01/09/25 13:32 Pulse Rate 65 01/09/25 13:32 Respiratory Rate 16 01/09/25 13:32 Blood Pressure 133/74 01/09/25 13:32 Pulse Oximetry 99 01/09/25 13:32 Oxygen Delivery Room Air 01/09/25 13:32 Temperature 36.7 C 01/09/25 15:11 Pulse Rate 69 01/09/25 17:36 Respiratory Rate 16 01/09/25 17:36 Blood Pressure 129/76 01/09/25 17:36 Pulse Oximetry 98 01/09/25 17:36 Oxygen Delivery Room Air 01/09/25 13:32 <Cleveland Francisco MD - Last Filed: 01/09/25 19:27> MDM - Nausea/Vomiting/Diarrhea MDM Narrative Medical decision making narrative: 39-year-old female presenting to the emergency room with nausea, vomiting and diarrhea. Symptoms going on since Thursday and mildly improved including no longer having diarrhea. She has normal vital signs and unremarkable physical examination. She is concerned about possible food poisoning as she ate at a restaurant and had symptoms quickly thereafter. History of cholecystectomy, no abdominal distension or lack of bowel movements. No fever. She is otherwise well-appearing. Symptoms consistent with possible gastroenteritis versus gastritis, bacteria or viral in nature. Low suspicion intra-abdominal process such as pancreatitis, appendicitis or bowel obstruction. Will obtain basic laboratory studies and treat her symptoms with combination of Zofran, Pepcid, dextrose containing fluids. Patient was re-evaluated after fluids and medications and she had significant improvement. Vital signs remained stable. Laboratory studies are unremarkable. No leukocytosis or anemia. Normal LFTs and kidney function. Normal electrolytes. Urine unremarkable. Urine drug screen positive for cannabinoids. Negative viral panel. Given patient's unremarkable workup and improvement after fluids and Pepcid/Zofran I believe she can be safely discharged home with a combination medications and given strict return precautions. Patient comfortable with this plan and safe for discharge. <Cleveland Francisco MD - Last Filed: 01/09/25 19:27> Medical Records Attestation: I reviewed the patient's medical records. <Cleveland Francisco MD - Last Filed: 01/09/25 19:27> Lab Data Attestation: I reviewed the patient's lab results. <Cleveland Francisco MD - Last Filed: 01/09/25 19:27> Result diagrams: 01/09/25 14:14 01/09/25 14:14 <Nancy Croft APRN - Last Filed: 01/09/25 13:45> Labs: Lab Results 01/09/25 Range/Units 14:14 WBC 7.3 (4.5-10.0) K/mm3 RBC 4.48 (4.2-5.4) M/mm3 Hgb 13.6 (12.0-15.0) g/dL Hct 41.0 (37.0-47.0) % MCV 91.5 (80-100) fl MCH 30.4 (26-34) pg MCHC 33.2 (32-36) g/dl RDW 13.3 (11.5-14.5) % Plt Count 278 (150-375) k/mm3 MPV 9.5 (7.4-10.4) fl Immature Gran % (Auto) 0.6 H (0-0.5) % Neut % (Auto) 67.0 (45.5-73.1) % Lymph % (Auto) 25.6 (18.3-44.2) % [place] % (Auto) 5.8 (2.6-8.5) % Eos % (Auto) 0.6 (0-4.4) % Baso % (Auto) 0.4 (0.2-1.2) % Lymph # (Auto) 1.86 (0.9-3.2) K/mm3 [place] # (Auto) 0.4 (0.1-0.6) K/mm3 Eos # (Auto) 0.0 (0-0.3) K/mm3 Baso # (Auto) 0.0 (0.0-0.1) K/mm3 Abs Immat Gran (auto) 0.04 H (0.00-0.031) K/mm3 Absolute Neuts (auto) 4.9 (1.3-6.7) K/mm3 Absolute Nucleated RBC 0.000 (0.0-0.012) K/mm3 Nucleated RBC % 0.0 (0.0-0.2) % Sodium 138 (137-145) mmol/L Potassium 4.0 (3.4-5.0) mmol/L Chloride 102 (98-107) mmol/L Carbon Dioxide 25 (22-30) mmol/L Anion Gap 11 (4-12) mmol/L BUN 17 (7-17) mg/dL Creatinine 0.49 L (0.7-1.0) mg/dL Estim Creat Clear Calc 120 ml/min Estimated GFR > 60 (59 - ) Glucose 94 (65-110) mg/dL Calcium 9.3 (8.4-10.2) mg/dL Total Bilirubin 0.7 (0.2-1.3) mg/dL AST 25 (14-36) U/L ALT 25 (6-35) U/L Alkaline Phosphatase 54 (38-126) U/L Total Protein 8.0 (6.3-8.2) g/dL Albumin 4.9 (3.5-5.1) g/dL Lipase 53 (23-300) U/L Urine Color Yellow (Yellow) Urine Appearance Clear (Clear) Urine pH 5.5 (5.0-9.0) Ur Specific [place] 1.028 (1.001-1.035) Urine Protein Negative (Negative) mg/dL Urine Glucose (UA) Negative (Negative) mg/dL Urine Ketones Negative (Negative) mg/dL Ur Blood (Man) Negative (Negative) Urine Nitrate Negative (Negative) Urine Bilirubin Negative (Negative) Urine Urobilinogen 0.2 (<2.0) mg/dL Leukocyte Esterase Rfl Negative (Negative) CHAKA/UL Urine Opiates Screen Negative (Negative) Urine Methadone Screen Negative (Negative) Ur Barbiturates Screen Negative (Negative) Ur Phencyclidine Scrn Negative (Negative) Ur Amphetamine Screen Negative (Negative) U Benzodiazepines Scrn Negative (Negative) Urine Cocaine Screen Negative (Negative) U Cannabinoids Screen Positive A (Negative) Influenza A (RT-PCR) Negative (Negative) Influenza B (RT-PCR) Negative (Negative) RSV (RT-PCR) Negative (Negative) SARS-CoV-2 RNA (RT-PCR) Negative (Negative) <Nancy Croft, PHYSICAL METEOROLOGIST - Last Filed: 01/09/25 13:45> Lab Results 01/09/25 Range/Units 14:14 WBC 7.3 (4.5-10.0) K/mm3 RBC 4.48 (4.2-5.4) M/mm3 Hgb 13.6 (12.0-15.0) g/dL Hct 41.0 (37.0-47.0) % MCV 91.5 (80-100) fl MCH 30.4 (26-34) pg MCHC 33.2 (32-36) g/dl RDW 13.3 (11.5-14.5) % Plt Count 278 (150-375) k/mm3 MPV 9.5 (7.4-10.4) fl Immature Gran % (Auto) 0.6 H (0-0.5) % Neut % (Auto) 67.0 (45.5-73.1) % Lymph % (Auto) 25.6 (18.3-44.2) % [place] % (Auto) 5.8 (2.6-8.5) % Eos % (Auto) 0.6 (0-4.4) % Baso % (Auto) 0.4 (0.2-1.2) % Lymph # (Auto) 1.86 (0.9-3.2) K/mm3 [place] # (Auto) 0.4 (0.1-0.6) K/mm3 Eos # (Auto) 0.0 (0-0.3) K/mm3 Baso # (Auto) 0.0 (0.0-0.1) K/mm3 Abs Immat Gran (auto) 0.04 H (0.00-0.031) K/mm3 Absolute Neuts (auto) 4.9 (1.3-6.7) K/mm3 Absolute Nucleated RBC 0.000 (0.0-0.012) K/mm3 Nucleated RBC % 0.0 (0.0-0.2) % Sodium 138 (137-145) mmol/L Potassium 4.0 (3.4-5.0) mmol/L Chloride 102 (98-107) mmol/L Carbon Dioxide 25 (22-30) mmol/L Anion Gap 11 (4-12) mmol/L BUN 17 (7-17) mg/dL Creatinine 0.49 L (0.7-1.0) mg/dL Estim Creat Clear Calc 120 ml/min Estimated GFR > 60 (59 - ) Glucose 94 (65-110) mg/dL Calcium 9.3 (8.4-10.2) mg/dL Total Bilirubin 0.7 (0.2-1.3) mg/dL AST 25 (14-36) U/L ALT 25 (6-35) U/L Alkaline Phosphatase 54 (38-126) U/L Total Protein 8.0 (6.3-8.2) g/dL Albumin 4.9 (3.5-5.1) g/dL Lipase 53 (23-300) U/L Urine Color Yellow (Yellow) Urine Appearance Clear (Clear) Urine pH 5.5 (5.0-9.0) Ur Specific [place] 1.028 (1.001-1.035) Urine Protein Negative (Negative) mg/dL Urine Glucose (UA) Negative (Negative) mg/dL Urine Ketones Negative (Negative) mg/dL Ur Blood (Man) Negative (Negative) Urine Nitrate Negative (Negative) Urine Bilirubin Negative (Negative) Urine Urobilinogen 0.2 (<2.0) mg/dL Leukocyte Esterase Rfl Negative (Negative) CHAKA/UL Urine Opiates Screen Negative (Negative) Urine Methadone Screen Negative (Negative) Ur Barbiturates Screen Negative (Negative) Ur Phencyclidine Scrn Negative (Negative) Ur Amphetamine Screen Negative (Negative) U Benzodiazepines Scrn Negative (Negative) Urine Cocaine Screen Negative (Negative) U Cannabinoids Screen Positive A (Negative) Influenza A (RT-PCR) Negative (Negative) Influenza B (RT-PCR) Negative (Negative) RSV (RT-PCR) Negative (Negative) SARS-CoV-2 RNA (RT-PCR) Negative (Negative) <Cleveland Francisco MD - Last Filed: 01/09/25 19:27> Discharge Plan Discharge Clinical Impression: Gastroenteritis, Food poisoning <Nancy Croft APRN - Last Filed: 01/09/25 13:45> Patient Disposition: Home <Nancy Croft APRN - Last Filed: 01/09/25 13:45> Condition: Stable <Nancy Croft APRN - Last Filed: 01/09/25 13:45> Instructions: Antibiotic Form, Clear Liquid Diet (ED), Gastroenteritis (ED), Acute Nausea and Vomiting (ED), Food Poisoning (ED) <Nancy Croft APRN - Last Filed: 01/09/25 13:45> Additional Instructions: Your laboratory studies are reassuring. You likely have food poisoning or bacterial gastroenteritis. We will send you home with some medications for symptom control. Return with any new or worsening symptoms or any other concerns. Follow-up with regular doctor outpatient. <Nancy Croft APRN - Last Filed: 01/09/25 13:45> Patient Language: Icelandic <Nancy Croft APRN - Last Filed: 01/09/25 13:45> Prescriptions: New dicyclomine 20 mg tablet 20 mg PO TID PRN (Reason: abdominal pain) Qty: 14 0RF alum-mag hydroxide-simeth [Maalox Advanced] 200-200-20 mg/5 mL suspension 15 ml PO QID PRN (Reason: indigestion) Qty: 3000 0RF Rx Instructions: administer between meals and at bedtime famotidine [Pepcid] 20 mg tablet 20 mg PO BID Qty: 20 0RF ondansetron 4 mg tablet,disintegrating 4 mg PO Q8H PRN (Reason: nausea and vomiting) Qty: 10 0RF No Action levonorgestrel-ethinyl estrad [Vienva] 0.1-20 mg-mcg tablet 1 tablet PO HS sertraline 50 mg Tablet 75 mg PO HS aspirin [Adult Low Dose Aspirin] 81 mg Tablet,Delayed Release (Dr/Ec) 81 mg PO DAILY ergocalciferol (vitamin D2) [Vitamin D2] 1,250 mcg (50,000 unit) Capsule 1,250 mcg PO WEEKLY Patient Comments: PT TAKES ON THURSDAY famotidine [Pepcid AC] 20 mg Tablet 20 mg PO DAILY oxybutynin chloride 10 mg tablet extended release 24hr PO acyclovir 800 mg tablet Jardiance 25 mg tablet albuterol sulfate 90 mcg/actuation HFA aerosol inhaler 1 puff inhalation QID Qty: 6.7 0RF Advanced Probiotic 625 mg (10 billion cell) Capsule 1 cap PO DAILY <Nancy Croft APRN - Last Filed: 01/09/25 13:45> Follow-up/Referrals: Naate,MD Alida [Primary Care Provider] - <Nancy Croft APRN - Last Filed: 01/09/25 13:45> Time of Disposition: 19:27 <Nancy Croft APRN - Last Filed: 01/09/25 13:45> 19:27 <Cleveland Francisco MD - Last Filed: 01/09/25 19:27>
[2025-01-09 14:21] LABS: Basophils Percent Auto 0.4 % (0.2-1.2); Eosinophils Percent Auto 0.6 % (0-4.4); Hemoglobin 13.6 g/dL (12.0-15.0); Immature Granulocyte Absolute 0.04 K/mm3 (0.00-0.031); Immature Granulocyte Percent A 0.6 % (0-0.5); Lymphocytes Absolute Auto 1.86 K/mm3 (0.9-3.2); Lymphocytes Percent Auto 25.6 % (18.3-44.2); Mean Corpuscular HGB Conc 33.2 g/dl (32-36); Mean Corpuscular Hemoglobin 30.4 pg (26-34); Mean Corpuscular Volume 91.5 fl (80-100); Mean Platelet Volume 9.5 fl (7.4-10.4); Monocytes Absolute Auto 0.4 K/mm3 (0.1-0.6); Monocytes Percent Auto 5.8 % (2.6-8.5); Neutrophils Absolute Auto 4.9 K/mm3 (1.3-6.7); Platelet Count Result 278 k/mm3 (150-375); Red Blood Count 4.48 M/mm3 (4.2-5.4); Red Cell Distribution Width 13.3 % (11.5-14.5); White Blood Count 7.3 K/mm3 (4.5-10.0)
[2025-01-09 14:23] LABS: Add Urine Microscopic? NO; Appearance Urine Clear (Clear); Bilirubin Urine Negative (Negative); Blood Urine Negative (Negative); Color Urine Yellow (Yellow); Glucose Urine UA Negative (Negative); Ketones Urine Negative (Negative); Leukocyte Esterase Ur Negative LEU/UL (Negative); Nitrate Urine Negative (Negative); Protein Urine Negative (Negative); Specific Grav Ur 1.028 (1.001-1.035); Urobilinogen Urine 0.2 mg/dL (<2.0); pH Urine 5.5 (5.0-9.0)
[2025-01-09 14:30] LABS: Alanine Aminotransferase 25 U/L (6-35); Albumin Level 4.9 g/dL (3.5-5.1); Alkaline Phosphatase 54 U/L (38-126); Anion Gap 11 mmol/L (4-12); Aspartate Amino Transferase 25 U/L (14-36); Bilirubin,Total 0.7 mg/dL (0.2-1.3); Blood Urea Nitrogen 17 mg/dL (7-17); Calcium 9.3 mg/dL (8.4-10.2); Carbon Dioxide 25 mmol/L (22-30); Chloride 102 mmol/L (98-107); Estimated CRCL calculation 120 ml/min; Estimated Glomerular Filt Rate > 60; Glucose 94 mg/dL (65-110); Lipase 53 U/L (23-300); Sodium 138 mmol/L (137-145)
--- OUTSIDE RECORDS SUMMARY | 2025-01-09 14:33 | XMS_ITS | Clinical Summary ---
Author Organization [facility] Care Team Providers Care Early Childhood Education Specialist Name Role Phone Unavailable Primary Care Provider [...]
--- OUTSIDE RECORDS SUMMARY | 2025-01-09 14:33 | XMS_ITS | Clinical Summary ---
Author Organization [facility] Address [address] [place] [address] Care Team Providers Care Signal Constructor Name Role Phone Alida Klein MD Primary Care Provider [phone] Allergies No known active allergies Medications acyclovir [...] 8 HOURS NEEDED 90 tablet 4 Active oxybutynin XL (DITROPAN-XL) 10 MG 24 hr tablet Take 1 tablet (10 mg total) by mouth daily. 4 Active semaglutide (OZEMPIC) 2 MG/3ML injection (PEN)Indication s:Diabetes Mellitus Inject 0.25 mg into the skin every 7 days. Indications: Diabetes 9 mL 5 Active semaglutide (OZEMPIC) 2 MG/3ML injection (PEN)Indication s:Diabetes Mellitus Inject 0.25 mg into the skin every 7 days. Indications: Diabetes 9 mL 4 12/13/19 25 Discontinue d(Reorder) methylPREDNISol one, AMERICA, (MEDROL DOSEPAK) 4 MG tabletIndicatio ns:Acute sinusitis, recurrence not specified, unspecified location 6 TABLETS ON DAY ONE, 5 TABLETS DAY TWO, 4 TABLETS DAY THREE, 3 TABLETS DAY FOUR, 2 TABLETS DAY FIVE, AND 1 TABLET DAY SIX 1 each 5 12/13/19 25 Discontinue d(Other- Please enter comment in Notes field) doxycycline hyclate (VIBRAMYCIN) 100 MG capsuleIndicati ons:Urethritis Take 1 capsule (100 mg total) by mouth 2 (two) times daily for 7 days. 14 capsule 5 12/20/19 25 Active Problems Problem Noted Date Diagnosed Date Pelvic floor dysfunction 05/18/2024 Overview (05/18/2024): On physical therapy ANTHONY (generalized anxiety disorder) 03/23/2024 Herpes simplex 03/23/2024 Mixed stress and urge urinary incontinence 03/23 Primary hypertension 03/23/2024 Class 2 severe obesity due t o excess calories with serious comorbidity and body mass index (BMI) of 35.0 to 35.9 in adult 03/23/2024 NANCY (obstructive sleep apnea) 03/23/2024 Type 2 diabetes mellitus wit h hyperglycemia, without long-term current use of insulin ([facility]) 12/21/2020 Nonrheumatic pulmonary valve stenosis 12/14/2018 Encounters Date Type Department Care Team Description 01/01/2025 Scan [facility] INFO SRVCS Scanned, [facility] Lab (SCAN) 12/12/2024 4:00 PM CDT Office Visit [facility] - [place] [address] [place] [address] Alida Klein MD Follow Up; Diabetes; Dysuria; Abdominal Pain (Started on Thursday. Pt is int in STI testing ); Urinary Frequency (States she is going pee more frequent ) 12/12/2024 Hospital Encounter [facility] [address] [place] [address] Alida Klein MD Discharge Disposition: Home or Self Care (Routine Discharge) 12/12/2024 - 12/12/2024 11:59 PM CDT Hospital Encounter [facility] [address] [place] [place] [address] Alida Klein MD Discharge Disposition: Home or Self Care (Routine Discharge) 12/12/2024 Travel 11/14/2024 Scan [facility] INFO SRVCS Scanned, Doc [facility] Image (SCAN) 11/01/2024 Scan [facility] INFO SRVCS Scanned, Doc [facility] Mammogram (SCAN); Ultrasound (SCAN) 11/01/2024 [facility]phone [facility] [place] [address] [place] [address] Alida Klein MD Follow Up Call 10/19/2024 Orders Only [facility] [place] [address] [place] [address] Alida Klein MD 10/19/2024 MyChart Message Enc [facility] [place] [address] [place] [address] Alida Klein MD Jardiance from Last 3 Months Immunizations Immunization Administration Dates Next Due Influenza (Generic) 07/13/2021, [...] PM CDT Legal Sex Female 7:40 PM UNIT AIDE TECH Gender Identity Female 03/25/2024 3:16 PM CDT Sexual Orientation Straight 03/25/2024 3: 16 PM CDT Last Filed Vital Signs Vital Sign Reading Time Taken Comments Blood Pressure 112/61 12/12/2024 3:59 PM CDT Pulse 73 12/12/2024 3:59 PM CDT Temperature 35.3 C (95.6 F) 12/12/2024 3:59 PM CDT Respiratory Rate 16 12/12/2024 3:59 PM CDT Oxygen Saturation 99% 12/12/2024 3:59 PM CDT Inhaled Oxygen Concentration - - Weight 89.2 kg (196 lb 9.6 oz) 12/12/2024 3:59 P M CDT Height 167.6 cm (5' 6 ) 12/12/2024 3:59 PM CDT Body Mass Index 31.73 12/12/2024 3:59 PM CDT Plan of Treatment Upcoming Encounters Date Type Department Care Team (Late st Contact Info) Description 03/14/2025 8:00 AM CDT Office Visit [facility] Mult[facility]ialty Care - [place] [address] [address] [place] [address] Alida Klein MD [address] [place] [address] [address] [place] [address] Health Maintenance Due Date Last Done Comments Diabetes: Retinopathy Eye Exam 2003 Hepatitis B Vaccines (1 of 3 - 19+ 3-dose series) 2004 COVID-19 Vaccine ( season) 2024 07/13/2021, 12/29/2020, 12/02/2020 PHQ-2 (Physician [place]') 09/21/2024 03/23/2024 Hemoglobin A1C 03/13/2025 09/12/2024, 07/0 01/2024, 01/01/2023, Additional history exists Annual Physical 03/23/2025 03/23/2024 Kidney Health Evaluation 03/23/2025 03/23/2024 Lipid Panel 03/25/2025 03/25/2024 DTaP, Tdap and Td Vaccines (3 - Td or Tdap) 02/19/2034 02/20/2024, 11/10/2020 Hepatitis C Completed 03/25/2024 Pneumococcal Vaccine: Pediatrics (0 to 5 Years) and At-Risk Patients (6 to 49 Years) Completed 05/18/2024 HPV Vaccines Aged Out No longer eligi [...] Procedure Name Priority Date/Time Associated Diagnosis Comments OUTSIDE LAB (SCAN ORDER) 01/01/2025 OUTSIDE LAB (SCAN ORDER) 01/01/2025 URINE BACTERIA CULTURE Routine 12/12/2024 4:32 PM CDT Type 2 diabetes mellitus with hyperglycemia, without long-term current use of insulin ([facility]) Dysuria CHLAMYDIA GC RNA Routine 12/12/2024 4:32 PM CDT Type 2 diabetes mellitus with hyperglycemia, without long-term current use of insulin ([facility]) Dysuria URINALYSIS AUTO DIP Routine 12/12/2024 Urethritis IMAGE GENERIC 11/14/2024 MAMMOGRAM GENERIC (SCAN ORDER) 11/01/2024 ULTRASOUND GENERIC (SCAN ORDER) 11/01/2024 HEMOGLOBIN, GLYCOSYLATED Routine 09/12/2024 4:42 PM UNIT AIDE TECH Type 2 diabetes mellitus with hyperglycemia, without long-term current use of insulin (CMS/HCC HHS/HCC) HEPATITIS C ANTIBODY Routine 03/25/2024 8:46 AM [...] Recently Relevant to Health Maintenance Results * OUTSIDE LAB (SCAN ORDER) (01/01/2025) Only the most recent of2 resultswithin the time period is included. 01/01/2025 us [facility] Scanned SCANNING Final Resu lt * CHLAMYDIA GC RNA (12/12/2024 4:32 PM CDT) SPEC DESCRIPTION URINE 12/13/19 4:32 PM CDT [facility] CHLAMYDIA RNA TMA NEGATIVE NEGATIVE 025 1:52 PM CDT [facility] Comment:PERFORMED BY NUCLEIC ACID AMPLIFICATION N.GONORRHOEAE RNA TMA NEGATIVE NEGATIVE 12/13/2024 1:52 PM CDT [facility] Comment:PERFORMED BY NUCLEIC ACID AMPLIFICATION URINE SPECIMEN / Unknown 12/12/2024 4:32 PM CDT us Alida Klein MD MICROBIOLOGY - GENERAL ORDERABLE S Final Result [facility] [address] [place] [address], * URINE BACTERIA CULTURE (12/12/2024 4:32 PM CDT) SPEC DESCRIPTION URINE CLEAN CATCH 12/12/2024 4:32 PM CDT [facility] SPECIAL REQUESTS NO SPECIAL REQUEST 12/12/2024 4:32 PM CDT [facility] CULTURE RESULT NO GROWTH (< OR = 1,000 CFU/ML) 12/14/2024 2:19 PM CDT [facility] URINE SPECIMEN OBTAINED BY CLEAN CATCH PROCEDURE / Unknown 12/12/2024 4:32 PM CDT 12/13/2024 1:31 PM CDT Alida Klein MD MICROBIOLOGY - GENERAL ORDERABLE S Final Result [facility] [address] [place] [address], [id number] * (ABNORMAL) URINALYSIS AUTO DIP (12/12/2024) COLOR (U) YELLOW YELLOW [address], [place] TRANSPARENCY CLEAR CLEAR [address], [place] GLUCOSE (U) NEGATIVE NEGATIVE MG/DL [address], [place] BILIRUBIN (U) NEGATIVE NEGATIVE [address], [place] KETONES MG/DL (U) NEGATIVE NEGATIVE MG/DL [address], [place] SPECIFIC GRAVITY (U) >=1.030 1.001 - 1.035 [address], [place] BLOOD (U) NEGATIVE NEGATIVE [address], [place] U PH 6.0 5.0 - 9.0 [address], [place] PROTEIN (U) TRACE(A) NEGATIVE mg/dL [address], [place] UROBILINOGEN 0.2 0.2 - 1.0 EU/dL = mg/dL [address], [place] NITRITES NEGATIVE NEGATIVE MG/DL [address], [place] LEUKOCYTES (U) NEGATIVE NEGATIVE [address], [place] URINE SPECIMEN OBTAINED BY CLEAN CATCH PROCEDURE / Unknown 12/12/2024 us Alida Klein MD URINE ORDERABLES Final Result [address], [place] [address] [facility] [place] [address], * IMAGE GENERIC (11/14/2024) Anatomical Region Laterality Modality Other 11/14/2024 [facility] Scanned SCANNING Final Resu lt * MAMMOGRAM GENERIC (SCAN ORDER) (11/01/2024) Anatomical Region Laterality Modality Other 11/01/2024 [facility] Scanned SCANNING Final Resu lt * ULTRASOUND GENERIC (SCAN ORDER) (11/01/2024) Anatomical Region Laterality Modality Other 11/01/2024 [facility] Scanned SCANNING Final Resu lt * (ABNORMAL) HEMOGLOBIN, GLYCOSYLATED (09/12/2024 4:42 PM UNIT AIDE TECH) HGB A1C 5.4 4.5 - 6.2 % 09/12/2024 8:05 PM UNIT AIDE TECH [facility] ESTIMATED AVG GLUCOSE 108(H) 74 - 106 MG/DL 09/12/2024 8:05 PM UNIT AIDE TECH [facility] 09/12/2024 4:42 PM UNIT AIDE TECH Alida Klein MD LABORATORY Final Result [facility] [address] [place] [address], * (ABNORMAL) LIPID PANEL (03/25/2024 8:46 AM CDT) CHOLESTEROL 178 <200 MG/DL 03/25/2024 2:39 PM CDT [facility] TRIGLYCERIDES 96 <150 MG/DL 03/25/2024 2:39 PM CDT [facility] HDL 52 >40 MG/DL 03/25/2024 2:39 PM CDT [facility] LDL-C 107(H) <100 MG/DL 03/25/2024 2:39 PM CDT [facility] VLDL CALCULATION 19 5 - 28 MG/DL 03/25/2024 2:39 PM CDT [facility] CHOL/HDL RATIO 3.4 0.0 - 4.0 03/25/2024 2:39 PM CDT [facility] LDL/HDL 2.1 0.41 - 2.13 03/25/2024 2:39 PM CDT [facility] NON HDL CHOLESTEROL 126 <140 MG/DL 03/25/2024 2:39 PM CDT [facility] 03/25/2024 8:46 AM CDT us Alida Klein MD LABORATORY Final Result [facility] [address] [place] [address], [place] [phone] * HEPATITIS C ANTIBODY (03/25/2024 8:46 AM CDT) HEPATITIS C AB NON-REACTI VE NON-REACT ANTOINETTE 03/25/2024 6:23 PM CDT [facility] Comment: ANTIBODIES TO HCV NOT DETECTED. DOES NOT EXCLUDE THE POSSIBILITY OF EXPOSURE TO HCV. 03/25/2024 8:46 AM CDT us Alida Klein MD LABORATORY Final Result [facility] [address] [place] [address], [place] [phone] [id number] from Last 3 Months or Most Recently Relevant to Health Maintenance Insurance [facility] Care Teams Signal Constructor Relationship Specialty Start Date End Date Alida Klein MD [address] [address] PCP - General INTERNAL MEDICINE 03/23/24
--- OUTSIDE RECORDS SUMMARY | 2025-01-09 14:33 | XMS_ITS | Encounter Summary ---
Author Organization [facility] Address Count includes the [facility] [place] [address] Care Team Providers Care Senior Technical Specialist Name Role Phone Alida Klein MD Primary Care Provider [phone] Encounter Details Date Type Department Care Team (Late st Contact Info) Description 05/21/2024 MyChart Message Enc [facility] Mult[facility]ty Care - [place] [address] [place] [address] [address] [place], [place] [id number] Alida Klein MD [address] [place] [address] [address] [place] [address] STD test result Social History Tobacco Use [...] PM CDT Legal Sex Female 7:40 PM NETWORK COORDINATOR Gender Identity Female 03/25/2024 3:16 PM CDT Sexual Orientation Straight 03/25/2024 3: 16 PM CDT documented as of this encounter Plan of Treatment Upcoming Encounters Date Type Department Care Team (Late st Contact Info) Description 03/14/2025 8:00 AM CDT Office Visit [facility] Multispecialty Care - [place] [address] [address] [place] [address] Alida Klein MD [address] [place] [address] documented as of this encounter Visit Diagnoses Not on filedocumented in this encounter Additional Health Concerns Infection Onset Date Last Indicated Resolved Time COVID-19 Rule Out 09/30/2024 09/30/2024 09/30/2024 3:56 PM NETWORK COORDINATOR documented as of this encounter Care Teams Senior Technical Specialist Relationship Specialty Start Date End Date Alida Klein MD [address] [place] [id number] PCP - General INTERNAL MEDICINE 03/23/24 documented as of this encounter
--- OUTSIDE RECORDS SUMMARY | 2025-01-09 14:33 | XMS_ITS | Encounter Summary ---
Author Organization [facility] Address [facility] [place] [address] Care Team Providers Care Video Editor Name Role Phone Alida Klein MD Primary Care Provider [phone] Encounter Details Date Type Department Care Team (Late st Contact Info) Description 05/04/2024 MyChart Message Enc [facility] Mult[facility]pecialty Care [facility] [address] [place] [address] [address] [place] [address] Alida Klein MD [address] [place] [address] [address] [place] [address] Ramón Social History Tobacco Use Types Packs/Day [...] PM CDT Legal Sex Female 7:40 PM CRECHE ATTENDANT Gender Identity Female 03/25/2024 3:16 PM CDT Sexual Orientation Straight 03/25/2024 3: 16 PM CDT documented as of this encounter Plan of Treatment Upcoming Encounters Date Type Department Care Team (Late st Contact Info) Description 03/14/2025 8:00 AM CDT Office Visit [facility] Mult[facility]pecialty Care [place] [address] [address] [place] [address] Alida Klein MD [address] [address] documented as of this encounter Visit Diagnoses Not on filedocumented in this encounter Additional Health Concerns Infection Onset Date Last Indicated Resolved Time COVID-19 Rule Out 09/30/2024 09/30/2024 09/30/2024 3:56 PM CRECHE ATTENDANT documented as of this encounter Care Teams Video Editor Relationship Specialty Start Date End Date Alida Klein MD [address] [place] [address] PCP - General INTERNAL MEDICINE 03/23/24 documented as of this encounter
--- OUTSIDE RECORDS SUMMARY | 2025-01-09 14:33 | XMS_ITS | Encounter Summary ---
Author Organization [facility] Address [facility] [place] [address] Care Team Providers Care Internet Developer Name Role Phone Alida Klein MD Primary Care Provider [phone] Encounter Details Date Type Department Care Team (Late st Contact Info) Description 05/20/2024 MyChart Message Enc [facility] Multispecialty Care - [place] [address] [address] [place], [place] [phone] Alida Klein MD [address] [place] [address] [address] [place], [place] [id number] Lab results. 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 Sex Female 7:40 PM PODIATRIST ORTHOPEDIC Gender Identity Female 03/25/2024 3:16 PM CDT Sexual Orientation Straight 03/25/2024 3: 16 PM CDT documented as of this encounter Plan of Treatment Upcoming Encounters Date Type Department Care Team (Late st Contact Info) Description 03/14/2025 8:00 AM CDT Office Visit [facility] Mult[facility]pecialty Care [place] [address] [address] [place] [address] Alida Klein MD [address] [place] [address] documented as of this encounter Visit Diagnoses Not on filedocumented in this encounter Additional Health Concerns Infection Onset Date Last Indicated Resolved Time COVID-19 Rule Out 09/30/2024 09/30/2024 09/30/2024 3:56 PM PODIATRIST ORTHOPEDIC documented as of this encounter Care Teams Internet Developer Relationship Specialty Start Date End Date Alida Klein MD [address] [place] [address] PCP - General INTERNAL MEDICINE 03/23/24 documented as of this encounter
--- OUTSIDE RECORDS SUMMARY | 2025-01-09 14:33 | XMS_ITS | Data Portability ---
[facility] Organization [facility] [address] [place] [address] Care Team Providers Care Clam Grader Name Role Phone MONICA PERALTA Primary Care Provider [phone] MAYA LEONARD Charging Manipulator [phone] Assessment Encounter Date Assessment Date Assessment LastModified by Organization Details LastModified Time 02/24/2023 02/24/2023 Lizy CARRILLO PA-S Not available 02/24/2023 09:01:52 Plan of Treatment Reminders Order Date Submit Date Provider Last Modified By Organization Details Last Modified Time Details Appointments None recorded. Lab vaginal pathogens panel, NELSY+probe, vaginal fluid 2022 023 [facility], [address], [place], [address], 3 06:15:09 TSH, ultra-sens itive, serum 2022 023 [facility], [address], [place], [address], 3 10:08:59 celiac disease comprehens amilcar panel, serum 2022 023 [facility], [address], [place], [address], 3 10:08:59 food allergen panel, serum 2022 023 [facility], [address], [place], [address], 3 10:09:00 H pylori urea breath test, co2 infrared 2022 023 [facility], [address], [place], [address], 3 07:14:05 vitamin D, 25-hydroxy , total, serum 2022 023 [facility], [address], [place], [address], 3 10:09:00 HbA1c (hemoglobi n A1c), blood 2022 023 BRANDON In-Office Order, Internal Use Only DO Not Attach Compendium DO Not Attach Compendium, Do Not Delete/merge, [id number] 09:41:51 CBC w/ auto diff 2022 023 [facility], [address], [place], [address], 3 17:10:12 lipid panel, serum 2022 023 [facility], [address], [place], [address], 3 17:10:10 CMP, serum or plasma 2022 023 [facility], [address], [place], [address], 3 17:10:11 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 Surgeries None recorded. Imaging None recorded. Medication Orders melatonin 5 mg tablet 2022 023 [id number], [address], [place], [place], [id number], 11:16:18 dicyclomin e 20 mg tablet 2022 023 [facility] #[id number], [address], [place], [place], [id number], 3 09:33:06 loperamide 2 mg tablet 2022 023 [facility] #[id number], [address] , [place], [place], [id number], 3 10:55:20 penicillin V potassium 500 mg tablet 2014 015 [facility] [address], [address] [place] [address], [address], 3 14:36:13 Celexa 10 mg tablet 2014 015 [facility] [address], [address] [place] [address], [address], 3 14:35:59 Patient TargetsNo targets recorded. Patient Instructions Encounter Date Encounter Id Patient Instructions Last Modified By Organization Details Last Modified Time 09/27/2014 [id number] plantar fasciitis: care instructions Not available 09/28/2014 15:35:40 plantar fasciitis: exercises Not available 09/28/2014 15:35:40 When You Want to Lose Weight: Care Instructions Not available 09/28/2014 15:35:40 learning about mood disorders Not available 09/28/2014 15:35:40 07/19/2015 [id number] I discussed with patient that this shall be her dentis' christin , but her dentis' won't do it untill a appointment on 07/30/2015, she is advisied to follow up with her dentist office as soon as she can. [email or web address] Not available 07/19/2015 10:31:55 01/01/2023 [id number] painful sex: car e instructions Not available 01/01/2023 09:28:24 A healthy lifestyle: care instructions Not available 01/01/2023 09:01:56 irritable bowel syndrome: care instructions Not available 01/01/2023 09:27:55 learning about the low fodmap diet for irritable bowel syndrome (IBS) Not available 01/01/2023 09:27:55 high-fiber diet: care instructions Not available 01/01/2023 09:27:55 diet for irritable bowel syndrome: care instructions Not available 01/01/2023 09:27:55 02/10/2023 [id number] A healthy lifestyle: care instructions Not available 02/10/2023 11:09:15 02/24/2023 [id number] A healthy lifestyle: care instructions Not available 02/24/2023 08:41:34 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 tar fasciitis Referring Physician: Rodrigo Rizvi, Internal Medicine, Encounter Date: 09/27/2014 Results Created Date Observation Date Name Description Value Unit Range Abnormal Flag Note LastModifiedBy Organization Detail LastModifiedTime 01/02/2001/02/2023 LIPID PANEL cholesterol, total 183.9 mg/dL 140.0- 200.0 Not Available [facility] Department [address] [place], [address], 01/02/2023 17:10:10 01/02/20 23 01/02/2023 LIPID PANEL triglyceride s 133 mg/dL <=150 Not Available [facility] Department [address] [place], [address], 01/02/2023 17:10:10 01/02/20 23 01/02/2023 LIPID PANEL HDL cholesterol 50.1 mg/dL 40.0-1 00.0 Not Available [facility] Department [address] [place], [address], 01/02/2023 17:10:10 01/02/20 23 01/02/2023 LIPID PANEL VLDL cholesterol migdalia 26.60 mg/dL 5.00-4 0.00 Not Available [facility] Department [address] [place], [address], 01/02/2023 17:10:10 01/02/20 23 01/02/2023 LIPID PANEL LDL chol calc ([facility]) 110.2 Not Available [facility] Department [address] [place] [address], [address], 01/02/2023 17:10:10 01/02/20 23 01/02/2023 COMP. METAB OLIC PANEL (14) glucose 124 mg/dL 65-99 above high normal ANION GP 26.0 mmol/ L N OSMOL 278.0 mOsM/ L N REFER ENCE RANGE : 275.0 -301. 0 Not Available [facility] Department [address] [place] [address], [address], 01/02/2023 17:10:11 01/02/20 23 01/02/2023 COMP. METAB OLIC PANEL (14) BUN 16 mg/dL 8-26 Not Available [facility] Department [address] [place] [address], [address], 01/02/2023 17:10:11 01/02/20 23 01/02/2023 COMP. METAB OLIC PANEL (14) creatinine 0.52 mg/dL 0.50-1 .40 Not Available [facility] Department [address] [place] [address], [address], 01/02/2023 17:10:11 01/02/20 23 01/02/2023 COMP. METAB OLIC PANEL (14) eGFR 123 mL/mi n/1.7 3 >=60 Not Available [facility] Department [address] [place], [address], 01/02/2023 17:10:11 01/02/20 23 01/02/2023 COMP. METAB OLIC PANEL (14) BUN/creatini ne ratio 31.0 Not Available [facility] Department [address] [place], [address], 01/02/2023 17:10:11 01/02/20 23 01/02/2023 COMP. METAB OLIC PANEL (14) sodium 138.0 mmol/ L 136.0- 144.0 Not Available [facility] Department [address] [place], [address], 01/02/2023 17:10:11 01/02/20 23 01/02/2023 COMP. METAB OLIC PANEL (14) potassium 4.6 mmol/ L 3.5-5. 3 Not Available [facility] Department [address] [place], [address], 01/02/2023 17:10:11 01/02/20 23 01/02/2023 COMP. METAB OLIC PANEL (14) chloride 102 mmol/ l 101-11 1 Not Available [facility] Department [address] [place] [address], [address], 01/02/2023 17:10:11 01/02/20 23 01/02/2023 COMP. METAB OLIC PANEL (14) carbon dioxide, total 15.2 mmol/ L 21.0-3 2.0 below low normal Not Available [facility] Department [address] [place], [address], 01/02/2023 17:10:11 01/02/20 23 01/02/2023 COMP. METAB OLIC PANEL (14) calcium 9.6 mg/dL 8.2-10 .0 Not Available [facility] Department [address] [place] [address], [address], 01/02/2023 17:10:11 01/02/20 23 01/02/2023 COMP. METAB OLIC PANEL (14) protein, total 7.4 g/dL 6.7-8. 2 Not Available [facility] Department [address] [place], [address], 01/02/2023 17:10:11 01/02/20 23 01/02/2023 COMP. METAB OLIC PANEL (14) albumin 4.8 g/dL 3.5-5. 5 Not Available [facility] Department [address] [place], [address], 01/02/2023 17:10:11 01/02/20 23 01/02/2023 COMP. METAB OLIC PANEL (14) globulin, total 2.6 g/dL 1.5-4. 5 Not Available [facility] Department [address] [place], [address], 01/02/2023 17:10:11 01/02/20 23 01/02/2023 COMP. METAB OLIC PANEL (14) A/G ratio 2.0 Not Available [facility] Department [address] [place], [address], 01/02/2023 17:10:11 01/02/20 23 01/02/2023 COMP. METAB OLIC PANEL (14) bilirubin, total 0.3 mg/dL 0.0-1. 2 Not Available [facility] Department [address] [place], [address], 01/02/2023 17:10:11 01/02/20 23 01/02/2023 COMP. METAB OLIC PANEL (14) alkaline phosphatase 53.6 IU/L 42.0-1 21.0 Not Available [facility] Department [address] [place], [address], 01/02/2023 17:10:11 01/02/20 23 01/02/2023 COMP. METAB OLIC PANEL (14) AST (SGOT) 19.7 U/L 10.0-4 2.0 Not Available [facility] Department [address] [place], [address], 01/02/2023 17:10:11 01/02/20 23 01/02/2023 COMP. METAB OLIC PANEL (14) ALT (SGPT) 23.7 U/L 10.0-6 0.0 Not Available [facility] Department [address] [place], [address], 01/02/2023 17:10:11 01/02/20 23 01/01/2023 CBC WITH DIFFE RENTI AL/PL ATELE T WBC 6.1 K/uL 3.4-10 .8 Not Available [facility] Department [address] [place], [address], 01/02/2023 17:10:11 01/02/20 23 01/01/2023 CBC WITH DIFFE RENTI AL/PL ATELE T RBC 5.1 M/uL 4.2-5. 4 Not Available [facility] Department [address] [place], [address], 01/02/2023 17:10:11 01/02/20 23 01/01/2023 CBC WITH DIFFE RENTI AL/PL ATELE T hemoglobin 14.9 g/dL 11.5-1 5.5 Not Available [facility] Department [address] [place], [address], 01/02/2023 17:10:11 01/02/20 23 01/01/2023 CBC WITH DIFFE RENTI AL/PL ATELE T hematocrit 45.9 % 36.0-4 8.0 Not Available [facility] Department [address] [place], [address], 01/02/2023 17:10:11 01/02/20 23 01/01/2023 CBC WITH DIFFE RENTI AL/PL ATELE T MCV 90 fL 80-95 Not Available [facility] Department [address] [place], [address], 01/02/2023 17:10:11 01/02/20 23 01/01/2023 CBC WITH DIFFE RENTI AL/PL ATELE T MCH 29 pg 27-32 Not Available [facility] Department [address] [place], [address], 01/02/2023 17:10:11 01/02/20 23 01/01/2023 CBC WITH DIFFE RENTI AL/PL ATELE T MCHC 33 g/dL 32-36 Not Available [facility] Department [address] [place], [address], 01/02/2023 17:10:11 01/02/20 23 01/01/2023 CBC WITH DIFFE RENTI AL/PL ATELE T RDW 12.5 % 11.5-1 4.5 Not Available [facility] Department [address] [place], [address], 01/02/2023 17:10:11 01/02/20 23 01/01/2023 CBC WITH DIFFE RENTI AL/PL ATELE T platelets 264 K/uL 155-37 9 MPV 10.1 FL 8.9-1 2.7 N Not Available [facility] Department [address] [place], [address], 01/02/2023 17:10:11 01/02/20 23 01/01/2023 CBC WITH DIFFE RENTI AL/PL ATELE T neutrophils 55.4 % 40.0-7 4.0 Not Available [facility] Department [address] [place], [address], 01/02/2023 17:10:11 01/02/20 23 01/01/2023 CBC WITH DIFFE RENTI AL/PL ATELE T lymphs 34.6 % 14.0-4 6.0 Not Available [facility] Department [address] [place], [address], 01/02/2023 17:10:11 01/02/20 23 01/01/2023 CBC WITH DIFFE RENTI AL/PL ATELE T monocytes 6.7 % 4.0-12 .0 Not Available [facility] Department [address] [place], [address], 01/02/2023 17:10:11 01/02/20 23 01/01/2023 CBC WITH DIFFE RENTI AL/PL ATELE T eos 1 % 0-5 Not Available [facility] Department [address] [place], [address], 01/02/2023 17:10:11 01/02/20 23 01/01/2023 CBC WITH DIFFE RENTI AL/PL ATELE T basos 0.7 % 0.0-1. 0 Not Available [facility] Department [address] [place] [address], [address], 01/02/2023 17:10:11 01/02/20 23 01/01/2023 CBC WITH DIFFE RENTI AL/PL ATELE T neutrophils (absolute) 3.4 K/uL 1.4-7. 0 Not Available [facility] Department [address] [place] [address], [address], 01/02/2023 17:10:11 01/02/20 23 01/01/2023 CBC WITH DIFFE RENTI AL/PL ATELE T lymphs (absolute) 2.1 K/uL 0.7-3. 1 Not Available [facility] Department [address] [place] [address], [address], 01/02/2023 17:10:11 01/02/20 23 01/01/2023 CBC WITH DIFFE RENTI AL/PL ATELE T monocytes(ab solute) 0.4 K/uL 0.1-0. 9 Not Available [facility] Department [address] [place] [address], [address], 01/02/2023 17:10:11 01/02/20 23 01/01/2023 CBC WITH DIFFE RENTI AL/PL ATELE T eos (absolute) 0.1 K/uL 0.0-0. 4 Not Available [facility] [address] [place] [address], [address], 01/02/2023 17:10:11 01/02/20 23 01/01/2023 CBC WITH DIFFE RENTI AL/PL ATELE T baso (absolute) 0.0 K/uL 0.0-0. 3 Not Available [facility] Department [address] [place] [address], [address], 01/02/2023 17:10:11 01/02/20 23 01/01/2023 CBC WITH DIFFE RENTI AL/PL ATELE T immature granulocytes 1.3 % Not Available [facility] Department [address] [place], [address], 01/02/2023 17:10:11 01/02/20 23 01/01/2023 CBC WITH DIFFE RENTI AL/PL ATELE T immature grans (abs) 0.1 K/uL Not Available [facility] Department [address] [place], [address], 01/02/2023 17:10:11 01/02/20 23 01/01/2023 CBC WITH DIFFE RENTI AL/PL ATELE T NRBC 0 % Not Available [facility] Department [address] [place], [address], 01/02/2023 17:10:11 01/02/20 23 01/02/2023 VITAM IN D, 25-HY DROXY vitamin D, 25-hydroxy 61.2 NG/mL 30.0-1 00.0 Vitam in D defic iency has been defin ed by the Insti tute of Medic ine and an Endoc rine Socie ty pract ice guide line as a level of serum 25-OH vitam in D less than 20 ng/mL (1,2) . The Endoc [facility] ty went on to fur er defin e vitam in D insuf ficie ncy as a level betwe en 21 and 29 ng/mL (2). 1. IOM (Inst itute of Medic ine). 2010. Dieta ry refer ence fei es for calci um and D. Sisi escalante [place]: The Natio nal [facility] Press . 2. Laura chen MF, Constance ey [place], Alexx off-F errar i JORDAN, et al. Evalu ation , treat ment, and preve ntion of vitam in D defic iency : an Endoc rine Socie ty clini migdalia pract ice guide line. JCEM. 2010; 96(7) :1911 -30. Not Available [facility] ([facility]) [address], [place], [address], 01/05/2023 10:09:00 01/02/20 23 01/01/2023 FOOD ALLER [...] >100. 00 Very High Not Available [facility] ([facility]) [address], [place], [address], 01/05/2023 10:09:00 01/02/20 23 01/05/2023 FOOD ALLER GY PROFI LE V297-OoZ egg white <0.10 Not Available [facility] ([facility]) [address] [place], [address], 01/05/2023 10:09:00 01/02/20 23 01/05/2023 FOOD ALLER GY PROFI LE F946-EnX peanut <0.10 Not Available [facility] ([facility]) [address] [place], [address], 01/05/2023 10:09:00 01/02/20 23 01/05/2023 FOOD ALLER GY PROFI LE W158-EpO soybean <0.10 Not Available [facility] ([facility]) [address] [place], [address], 01/05/2023 10:09:00 01/02/20 23 01/05/2023 FOOD ALLER GY PROFI LE U487-IrJ milk <0.10 Not Available [facility] ([facility]) [address] [place], [address], 01/05/2023 10:09:00 01/02/20 23 01/05/2023 FOOD ALLER GY PROFI LE D961-JhM clam <0.10 Not Available [facility] ([facility]) [address] [place], [address], 01/05/2023 10:09:00 01/02/20 23 01/05/2023 FOOD ALLER GY PROFI LE G112-UkG shrimp <0.10 Not Available [facility] ([facility]) [address] [place], [address], 01/05/2023 10:09:00 01/02/20 23 01/05/2023 FOOD ALLER GY PROFI LE Q045-WhI walnut <0.10 Not Available [facility] ([facility]) [address] [place], [address], 01/05/2023 10:09:00 01/02/20 23 01/05/2023 FOOD ALLER GY PROFI LE F198-OiF codfish <0.10 Not Available [facility] ([facility]) [address] [place], [address], 01/05/2023 10:09:00 01/02/20 23 01/05/2023 FOOD ALLER GY PROFI LE O671-ZjK scallop <0.10 Not Available [facility] ([facility]) [address] [place], [address], 01/05/2023 10:09:00 01/02/20 23 01/05/2023 FOOD ALLER GY PROFI LE N815-FoA wheat <0.10 Not Available [facility] ([facility]) [address] [place], [address], 01/05/2023 10:09:00 01/02/20 23 01/05/2023 FOOD ALLER GY PROFI LE D129-HoY corn <0.10 Not Available [facility] ([facility]) [address], [place], [address], 01/05/2023 10:09:00 01/02/20 23 01/05/2023 FOOD ALLER GY PROFI LE R190-UqZ sesame seed <0.10 Not Available [facility] ([facility]) [address], [place], [address], 01/05/2023 10:09:00 01/02/20 23 01/02/2023 TSH RFX ON ABNOR MAL TO FREE T4 TSH 1.030 uIU/m L 0.450- 4.500 Not Available [facility] ([facility]) [address], [place], [address], 01/05/2023 10:08:59 01/02/20 23 01/02/2023 WALESKA C DISEA SE PANEL endomysial antibody IgA NEGATI VE negati ve Not Available [facility] ([facility]) [address], [place], [address], 01/05/2023 10:08:58 01/02/20 23 01/02/2023 WALESKA C [...] tive enter opath y. Not Available [facility] ([facility]) [address] [place], [address], 01/05/2023 10:08:58 01/02/20 23 01/02/2023 WALESKA C DISEA SE PANEL immunoglobul in A, qn, serum 174 mg/dL 87-352 Not Available [facility] ([facility]) [address], [place], [address], 01/05/2023 10:08:58 01/02/20 23 01/01/2023 HbA1c (hemo globi n A1c), blood HbA1c 6.3 Not Available In-Office Order Internal Use Only DO Not Attach Compendium DO Not Attach Compendium, Do Not Delete/merge, [id number] 01/01/2023 08:50:48 01/07/2001/08/2023 H PYLOR I BREAT H TEST H pylori breath test NEGATI VE negati ve Not Available [facility] ([facility]) [address], [place], [address], 01/08/2023 07:14:05 02/25/20 23 02/25/2023 NUSWA B VAGIN ITIS PLUS (VG+) atopobium vaginae Low - 0 score Not Available [facility] ([facility]) [address] [place], [address], 02/26/2023 06:15:09 02/25/20 23 02/25/2023 NUSWA B VAGIN ITIS PLUS (VG+) bvab 2 Low - 0 score Not Available [facility] ([facility]) [address] [place], [address], 02/26/2023 06:15:09 02/25/20 23 02/25/2023 NUSWA B [...] Drug Admin istra tion. Not Available [facility] ([facility]) [address] [place], [address], 02/26/2023 06:15:09 02/25/20 23 02/25/2023 NUSWA B VAGIN ITIS PLUS (VG+) bryson albicans, NELSY Negati ve negati ve Not Available [facility] ([facility]) [address] [place], [address], 02/26/2023 06:15:09 02/25/20 23 02/25/2023 NUSWA B VAGIN ITIS PLUS (VG+) bryson glabrata, NELSY Negati ve negati ve Not Available [facility] ([facility]) [address] [place], [address], 02/26/2023 06:15:09 02/25/20 23 02/26/2023 NUSWA B VAGIN ITIS PLUS (VG+) trich vag by NELSY Negati ve negati ve Not Available [facility] ([facility]) [address] [place], [address], 02/26/2023 06:15:09 02/25/20 23 02/26/2023 NUSWA B VAGIN ITIS PLUS (VG+) chlamydia trachomatis, NELSY Negati ve negati ve Not Available [facility] ([facility]) [address] [place], [address], 02/26/2023 06:15:09 02/25/20 23 02/26/2023 NUSWA B VAGIN ITIS PLUS (VG+) neisseria gonorrhoeae, NELSY Negati ve negati ve Not Available [facility] ([facility]) [address], [place], [address], 02/26/2023 06:15:09 11/25/19 17 imagi ng/di agnos tic resul t No observ ation record ed. [facility] ([facility]) [address] [facility], [place], [address], 01/01/2023 12:38:49 08/21/20 17 XR, chest , 2 view No observ ation record ed. Not Available 2022 12:38:49 08/11/20 22 08/11/2022 imagi ng inter preta tion No observ ation record ed. [facility] [address], [place], [address], 01/01/2023 12:38:48 08/11/20 22 08/11/2022 imagi ng inter preta tion No observ ation record ed. [facility] [address], [place], [address], 01/01/2023 12:38:48 02/27/20 23 09/24/2022 US, pelvi s, trans abdom inal + trans vagin al No observ ation record ed. [facility] [address], [place], [address], 03/04/2023 13:36:54 12/16/19 24 12/16/2023 US, duple x, venou s, lower extre mity No observ ation record ed. [facility] [address], [place], [address], 12/18/2023 10:39:34 12/16/19 24 12/16/2023 trans -thor acic echoc ardio gram (TTE) (PROC ) No observ ation record ed. [email or web address] [facility] [address], [place], [address], 12/17/2023 16:10:03 03/07/20 24 03/07/2024 CT, abdom en + pelvi s, w/ contr ast No observ ation record ed. [email or web address] [facility] [address], [place], [address], 03/14/2024 08:49:28 Result Notes None recorded. 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, bioproseth ic valve SHERLYN LIVINGSTON Attn: Accounting ,[address] [facility], [place], [address] , [facility] 3 08:54:57 Impaired glucose tolerance 6752818 Active 2022 SHERLYN LIVINGSTON Attn: Accounting ,[address] [facility], [place], [address] , [facility] 3 08:55:46 Essential hypertens ion 29886822 Active 2022 SHERLYN LIVINGSTON Attn: Accounting ,[address] [facility], [place], [address] , [facility] 3 08:56:02 Celluliti s of face 802593613 Active Not Available [facility] 14:21:59 Depressiv e disorder 46042162 Active Not Available [facility] 14:21:59 Plantar fasciitis 724996487 Active Not Available [facility] 14:21:59 Obesity 717052103 Active Not Available [facility] 14:21:59 Problem Notes None recorded. Procedures Surgical History Date Name Laterality Status Provider Name and Address Organization Details Recorded Time 01/08/20 24 Total hysterectomy completed MADHAV LOPEZ PA-C Attn: Accounting, [address] , [place], [address], [place] [facility] 01/13/2024 12:11:59 07/10/20 22 Date of Last Pap Smear completed Roxana Cavazos MA [place] [facility] 01/01/2023 08:35:43 09/21/19 10 Cholecystectomy completed Madhav Lopez [facility] 09/27/19 15:57:35 09/21/18 90 Tonsillectomy completed Madhav Lopez [facility] 09/27/2014 15:57:35 09/21/18 86 Heart Surgery completed Madhav Lopez [facility] 09/27/2014 15:57:35 Imaging Results Imaging Date Name Status LastModified by Organization Details LastModified Time 11/24/2016 imaging/diagnostic result completed [facility] ([facility]) [address] [place], [address], 01/01/2023 12:38:49 08/21/2017 XR, chest, 2 view completed Informa tion not available 01/01/2023 12:38:49 08/11/2022 imaging interpretation completed [facility] [address], [place], [address], 01/01/2023 12:38:48 08/11/2022 imaging interpretation completed [facility] [address], [place], [address], 01/01/2023 12:38:48 09/24/2022 US, pelvis, transabdominal + transvaginal completed [facility] [address], [place], [address], 03/04/2023 13:36:54 12/16/2023 US, duplex, venous, lower extremity completed [email or web address] [address], [place], [address], 12/18/2023 10:39:34 12/16/2023 trans-thoracic echocardiogram (TTE) (PROC) completed [id number] [facility] [address], [place], [address], 12/17/2023 16:10:03 03/07/2024 CT, abdomen + pelvis, w/ contrast completed [id number], [place], [address], 03/14/2024 08:49:28 Procedure Notes None recorded. Medical Equipment None Reported. Allergies No known drug allergies Medications Name Sig Start Date Stop Date Status Note LastModified by Organization Details LastModified Time binaxnow cov kit home sade 01/01 completed Not Available Not Available Not Available flowflex kit test 01/01 completed Not Available Not Available Not Available [facility] 2-pk kit covid-19 02/24 completed Not Available [...] Address Organization Details Last Updated DateTime 5 63305.6 70286 g 98 % 98 % 167.64 cm 98.6 [degF] 72 /min 31.1 kg/m2 98 mm[Hg] 52 mm[Hg] Nithin Bo [facility] 5 10:01:26 Date Recorded Body height Body mass index (BMI) Body weight Heart rate Body temperature Oxygen saturation Oxygen saturation in Arterial blood by Pulse oximetry Systolic blood pressure Diastolic blood pressure Provider Name and Address Organization Details Last Updated DateTime 3 167.64 cm 34.9 kg/m2 88997.9 5 g 83 /min 98.6 [degF] 96 % 96 % 102 mm[Hg] 60 mm[Hg] Roxana Cavazos [facility] 3 08:33:30 Date Recorded Body height Body mass index (BMI) Body weight Heart rate Body temperature Oxygen saturation Oxygen saturation in Arterial blood by Pulse oximetry Systolic blood pressure Diastolic blood pressure Provider Name and Address Organization Details Last Updated DateTime 3 167.64 cm 34.9 kg/m2 60382.7 5 g 79 /min 98.7 [degF] 98 % 98 % 120 mm[Hg] 80 mm[Hg] Roxana Cavazos [facility] 3 10:39:07 Date Recorded Respiratory rate Body weight Heart rate Body mass index (BMI) Body height Body temperature Systolic blood pressure Diastolic blood pressure Provider Name and Address Organization Details Last Updated DateTime 5 16 /min 98159.7 55039 g 72 /min 31.2 kg/m2 167.64 cm 98.1 [degF] 110 mm[Hg] 60 mm[Hg] Madhav [facility] 5 15:57:35 Date Recorded Body height Body mass index (BMI) Body weight Heart rate Oxygen saturation Oxygen saturation in Arterial blood by Pulse oximetry Systolic blood pressure Diastolic blood pressure Provider Name and Address Organization Details Last Updated DateTime 3 167.64 cm 34.9 kg/m2 30052.7 5 g 83 /min 96 % 96 % 102 mm[Hg] 70 mm[Hg] Maegan Beltrán [facility] 3 08:31:17 Social History Question Answer Notes LastModified by Organizat ion Details LastModified Time Tobacco Smoking Status Never Smoker Madhav Lopez [facility] 09/27/2014 15:57:35 Do You Have An Advance [...] Skin Problems N Anemia N Heart Attack (IA) N Anxiety Disorder Y Diabetes N Muscle, [...] SNOMED-CT Code Diagnosis ICD10 Code Diagnosis Note [id number] Mraco (Adult Med) [address] [place] [address] 09/27/2014 15:37:48 09/27/2014 17:22:46 Depressive disorder 19543421 Plantar fasciitis 511868537 Obesity 652438376 [id number] MD Marco Cuba (Adult Med) [address] [place] [address] 0 07/19/2015 09:45:41 07/19/2015 13:01:23 Cellulitis of face 637617893 L03.499 [id number] SHERLYN LIVINGSTON (Adult Med) [address] [place] [address] 0 01/01/2023 08:19:10 01/01/2023 14:57:36 Essential hypertension 02461226 I10 BP Today: 102/60c/w losartan 25 mg, [...] QD. Being prescribed by OBGYNc/w sertraline Obesity 378831377 E66.9 BMI 34.9 today- Patient given handouts on healthy lifestyle and diet Impaired g lucose tolerance 7333343 R73.03 Last A1C: 6.3 today (01/01/2023 )Current [...] A1c today Irritable bowel syndrome with diarrhea 503677220 K58.0 Patient presenting with abdominal pain almost [...] high fiber diet Vitamin D deficiency 347 50244 E55.9 Vit. D prescribed by her OBGYN- Check Vit. D levels Dyspareunia 62162688 N94 .10 Patient c/o Dyspareuni a x [...] OBGYN- Patient given handouts on painful sex [id number] SHERLYN LIVINGSTON (Adult Med) [address] [place] [address] 02/10/2023 10:30:40 02/11/2023 14:04:34 Irritable bowel syndrome with diarrhea 356608220 K58.0 States her abdominal pain and loose [...] for IBS, and high fiber diet Dyspareunia 44574860 N94 .10 Patient c/o Dyspareuni a x [...] Patient given handouts on painful sex Obesity 594202330 E66.9 BMI 34.9 today- Patient given handouts on healthy lifestyle and diet Memory impairment 917951 006 R41.3 Complainin g of forgetfuln ess [...] with hx of seizures and migraines Insomnia 520578077 G47.0 0 Issues sleeping at night, my [...] with trusting her Chronic in terstitial cystitis 302270327 N30.10 Diagnosed with IC by her OBGYN, admits to bladder pain after drinking certain types of liquids and with holding her bladder for long periods of time- continue without tx for now- could be playing role in pelvic pain? Depression screening 171 824081 Z13.31 PHQ 2 was negative in office today (0 out of 27) [id number] SHERLYN LIVINGSTON (Adult Med) [address] [place] [address] 02/24/2023 08:23:49 02/25/2023 11:58:09 Dyspareunia 50111462 N94.10 Patient c/o Dyspareuni a x > [...] be called with results when available Obesity 398453774 E66.9 BMI 34.9 today- Patient given handouts on healthy lifestyle and diet Health Concerns Section Related Observation LastModified by Organization Detai ls LastModified Time None Recorded Concern Status LastModified by Organization Details LastModified Time None Recorded Advance Directives Directive N: Payers Encounter Date Sequence Insurance Name Policy Number Policy Barton Covered Member ID Barton Member ID Guarantor Name 09/27/2014 1 [place] [employer] [facility] - DOS PRIOR TO 2021 (MEDICAID REPLACEMENT - HMO) Destini Skinner [id number] Destini Skinner 07/19/2015 1 [facility] (MEDICAID HMO) [id number] Destini Skinner [id number] Destini Tavaresallo 01/01/2023 1 [place] [id number] Destini Skinner [id number] Destini Skinner 01/01/2023 2 [facility] (MEDICAID REPLACEMENT - HMO) [id number] Destini Skinner [id number] Destini Tavaresallo 02/10/2023 1 [place] [id number] Destini Skinner [id number] Destini Guerlineo 02/10/2023 2 [facility] ([facility]ICA[facility] HMO) [id number] Destini Skinner [id number] Destini Tavaresallo 02/24/2023 1 [place] [id number] Destini Skinner [id number] Destini Chaitanyaallo 02/24/2023 2 [facility] (MEDICAID REPLACEMENT - HMO) [id number] Destini Skinner [id number] Destini Cunhao Notes Date Note Type Note Provider Name and Address Organization Details Recorded Time 07/19/2015 text/html broken tooth.Can not a appointment to see her dentist untill next month. 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 Patient on Jardiance for pre-diabetes. A1c [...] or dysuria. SHERLYN LIVINGSTON Attn: [address]ing[address] [place], [address], [facility] 01/01/2023 12:40:17 02/10/2023 text/html [...] or dysuria. SHERLYN LIVINGSTON Attn: [address]ing[address] [facility], [place], [address], [facility] 02/10/2023 15:15:00 02/24/2023 text/html 37 y/o female [...] and hematuria. SHERLYN LIVINGSTON Attn: Accounting[address] [facility], [place], [address], [facility] 02/24/2023 13:51:39 OBGyn Episode No OBEpisode recorded.
--- OUTSIDE RECORDS SUMMARY | 2025-01-09 14:33 | XMS_ITS | Encounter Summary ---
Author Organization 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 Gender Identity Female 03/25/2024 3:16 PM CDT Sexual Orientation Straight 03/25/2024 3: 16 PM CDT documented as of this encounter Plan of Treatment Upcoming Encounters Date Type Department Care Team (Late st Contact Info) Description 03/14/2025 8:00 AM CDT Office Visit [facility] [address] [place] [address] Alida Klein MD [address] [facility] [address] [place] [address] documented as of this encounter Procedures Procedure Name Priority Date/Time Associated Diagnosis Comments OUTSIDE LAB (SCAN ORDER) 01/01/2025 OUTSIDE LAB (SCAN ORDER) 01/01/2025 documented in this encounter Results * OUTSIDE LAB (SCAN ORDER) (01/01/2025) 01/01/2025 [facility] Scanned SCANNING Final Resu lt * OUTSIDE LAB (SCAN ORDER) (01/01/2025) 01/01/2025 [facility] Scanned SCANNING Final Resu lt documented in this encounter Visit Diagnoses Not on filedocumented in this encounter Care Teams Customer Support Manager Relationship Specialty Start Date End Date Alida Klein MD [address] [address] PCP - General INTERNAL MEDICINE 03/23/24 documented as of this encounter
--- OUTSIDE RECORDS SUMMARY | 2025-01-09 14:33 | XMS_ITS | Encounter Summary ---
Author Organization [facility] Address [facility] [place] [address] Care Team Providers Care Mattress Filler Name Role Phone Alida Klein MD Primary Care Provider [phone] Encounter Details Date Type Department Care Team (Late st Contact Info) Description 05/18/2024 MyChart Message Enc [facility] - [place] [address] [place] [address] [address] [place] [address] Alida Klein MD [address] [place] [address] [address] [place] [address] Lab results 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 Gender Identity Female 03/25/2024 3:16 PM CDT Sexual Orientation Straight 03/25/2024 3: 16 PM CDT documented as of this encounter Plan of Treatment Upcoming Encounters Date Type Department Care Team (Late st Contact Info) Description 03/14/2025 8:00 AM CDT Office Visit [facility] - [place] [address] [address] [place] [address] Alida Klein MD [address] [place] [address] documented as of this encounter Visit Diagnoses Not on filedocumented in this encounter Additional Health Concerns Infection Onset Date Last Indicated Resolved Time COVID-19 Rule Out 09/30/2024 09/30/2024 09/30/2024 3:56 PM BUSINESS SERVICES COORDINATOR documented as of this encounter Care Teams Mattress Filler Relationship Specialty Start Date End Date Alida Klein MD [address] [place] [address] PCP - General INTERNAL MEDICINE 03/23/24 documented as of this encounter
--- OUTSIDE RECORDS SUMMARY | 2025-01-09 14:33 | XMS_ITS | Clinical Summary ---
Author Organization [facility] Address [address] [place] [address] Care Team Providers Care Kersey Department Supervisor Name Role Phone Rodrigo Rizvi MD Primary Care Provider [phone] Source Comments [facility],non-owned Affiliates and Associated Physician Practices is amultiple site organization consisting of ambulatory clinics and hospital sitesin [place], [place], [place] and [place]. This disclosure is being madepursuant to the Care Everywhere program and may not contain all information available regarding this patient. Last updated 18.[facility] Allergies No known active allergies Medications * Be aware that medications may not be up to date on this document. Alwaysverify current medications with the patient. acyclovir (ZOVIRAX) 400 MG tablet Take 400 mg by mouth once daily 04/20/2018 Active vitamin D, ergocalciferol, (DRISDOL) 05878 UNITS capsule 04/20/2018 Activ e VIENVA 0.1-20 MG-MCG tablet Take 1 tablet by mouth once daily 04/18/2018 Active sertraline (ZOLOFT) 50 MG tablet 04/20/2018 Active Aspirin (ASPIR-81 PO) Active Active Problems No known active problems Social History Tobacco Use Types Packs/Day Years Used Date Smoking Tobacco: Never Smokeless Tobacco: Never Alcohol Use Standard Drinks/Week Comments No 0 (1 standard drink = 0.6 oz pur e alcohol) Comments Unknown Sex and Gender Information Value Date Recorded Sex Assigned at Female 02/12/2022 10:37 AM CDT 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 Gender Identity Female 02/12/2022 10:37 AM CDT Sexual Orientation Straight 02/12/2022 10 :37 AM CDT Plan of Treatment Health Maintenance Due Date Last Done Comments PAP SMEAR 1985 HIV SCREENING 2000 HEPATITIS C SCREENING 03/27/2003 DTAP/TDAP/TD VACCINES (1 - Tdap) 2004 HEPATITIS B VACCINE (1 of 3 - 19+ 3-dose series) 2004 COVID-19 VACCINE (1 - 2023-2 5 season) 2024 DEPRESSION SCREENING 09/21/2024 INFLUENZA VACCINE (Season Ended) 2025 ZOSTER VACCINE (1 of 2) 2035 HIB VACCINE Aged Out No longer eligi ble based on patient's age to complete this topic HPV VACCINE Aged Out No longer eligi ble based on patient's age to complete this topic MENINGOCOCCAL (Group B) VACC INE SHARED DECISION-MAKING Aged Out No longer eligibl e based on patient's age to complete this topic MENINGOCOCCAL GROUPS A/C/Y/W VACCINE Aged Out No longer eligible b ased on patient's age to complete this topic PNEUMOCOCCAL VACCINE Aged Out No long er eligible based on patient's age to complete this topic Insurance [facility] [place] SELF PAY NO INSURANCE Member Subscriber Plan / Payer (Ef fective for All Dates) Name:Destini Maza Member ID:Not on file Relation to Subscriber:Not on file Name:DESTINI MAZA Subscriber ID:Not on file Address: [address] [place] [address] Payer ID:Not on file Group ID:Not on file Type:Self Pay Address: [place], [place] [facility]ARE SELF PAY NO INSURANCE Member Subscriber Plan / Payer (Ef fective for All Dates) Name:Destini Maza Member ID:Not on file Relation to Subscriber:Not on file Name:DESTINI MAZA Subscriber ID:Not on file Address: [address] [place] [address] Payer ID:Not on file Group ID:Not on file Type:Self Pay Address: [place], [place] SELF PAY NO INSURANCE Member Subscriber Plan / Payer (Ef fective for All Dates) Name:Destini Maza Member ID:Not on file Relation to Subscriber:Not on file Name:DESTINI MAZA Subscriber ID:Not on file Address: [address] [place] [address] Payer ID:Not on file Group ID:Not on file Type:Self Pay Address: [place], [place] Care Teams Kersey Department Supervisor Relationship Specialty Start Date End Date Rodrigo Rizvi MD [address] [place] [phone] PCP - General 04/27/18
--- OUTSIDE RECORDS SUMMARY | 2025-01-09 14:33 | XMS_ITS | Data Portability ---
Author Organization [facility] [place] Address [address] [place] [address] [place] [address] Care Team Providers Care Precision Dancer Name Role Phone MONICA PERALTA Primary Care Provider [phone] Assessment No assessment recorded. Plan of Treatment Reminders Order Date Submit Date Provider Last Modified By Organization Details Last Modified Time Details Appointments None recorded. Lab HBsAg (hepatitis B surface Ag), serum 2023 024 [facility] (Lab), [address] [place], [address], 4 19:49:22 Referral None recorded. Procedures None recorded. Surgeries None recorded. Imaging MAMMO, diagnostic, tomosynthes is, bilateral 2024 025 [facility] (Mammography) , [address], [place], [address], 5 04:01:13 US, pelvis [address], [address], [address], [place], [address], 4 17:32:07 US, transvagina l [address], [address], [place], [address], 4 17:32:07 Medication Orders fluconazole 150 mg tablet 2024 025 [facility], [address] [facility], [place], [address], 18:25:04 Patient TargetsNo targets recorded. Patient InstructionsNo [...] Resul ting Lab: [facility] [address] [facility] [address] Tel: CULTU RE ----- ----- ----- --- No growt h in 1 day (dete ction level of 10,00 0 colon ies / ml.) Not Available [facility] (Lab) [address] [facility], [place], [address], 04/09/2024 02:17:26 04/07/20 24 04/07/2024 urina lysis , dipst ick pH 5 Not Available [place] [address], [place], [address], 04/07/2024 11:33:09 04/07/20 24 04/07/2024 urina lysis , dipst ick Specific [place] 1.020 Not Available [facility] [address], [place], [address], 04/07/2024 11:33:09 04/07/20 24 04/07/2024 urina lysis , dipst ick Glucose 1000mg Not Available [place] [address], [place], [address], 04/07/2024 11:33:09 06/06/20 24 06/06/2024 CT/GC AND TRICH OMONA S VAGIN JACOB (RRNA ), URINE chlamydia trachomatis, PCR Negati ve negati ve Not Available [facility] (Lab) [address] [facility], [place], [address], 06/07/2024 12:48:07 06/06/20 24 06/06/2024 CT/GC AND TRICH OMONA S VAGIN JACOB (RRNA ), URINE neisseria gonorrhoeae, PCR Negati ve negati ve Not Available [facility] (Lab) [address] [facility], [place], [address], 06/07/2024 12:48:07 06/06/20 24 06/06/2024 CT/GC AND TRICH OMONA S VAGIN JACOB (RRNA ), URINE trichomonas vaginalis ribosomal RNA (rrna) Negati ve negati ve Not Available [facility] (Lab) [address] [facility], [place], [address], 06/07/2024 12:48:07 06/06/20 24 06/06/2024 HBSAG /HCV/ HIV/R [place] HIV antigen/anti body Nonrea ctive nonrea ctive HIV-1 antig en and HIV-1 /HIV- 2 antib odies were not detec laine. No labor atory evide nce of HIV infec tion. Not Available [facility] (Lab) [address] [facility], [place], [address], 06/07/2024 19:49:22 06/06/20 24 06/06/2024 HBSAG /HCV/ HIV/R [place] hepatitis B surface antigen Non-re active non-re active This assay was perfo rmed using [employer] ratio n reage nts and test kits. Value s obtai juana with other assay metho ds or kits canno t be used inter torres eably . Not Available [facility] (Lab) [address] [facility], [place], [address], 06/07/2024 19:49:22 06/06/20 24 06/06/2024 HBSAG /HCV/ HIV/R [place] hepatitis C antibody Non-re active non-re active Antib odies to HCV Not Detec laine, does not exclu de the possi bilit y of expos ure to HCV. Not Available [facility] (Lab) [address] [facility], [place], [address], 06/07/2024 19:49:22 06/06/20 24 06/06/2024 HBSAG /HCV/ HIV/R [place] RPR screen Nonrea ctive nonrea ctive Not Available [facility] (Lab) [address] [facility], [place], [address], 06/07/2024 19:49:22 10/07/1910/07/2024 WOMEN 'S HEALT H SWAB PLUS, NELSY bacterial vaginosis (bv), tma Negati ve negati ve Not Available [facility] (Lab) [address] [facility], [place], [address], 10/08/2024 14:15:37 10/07/19 25 10/07/2024 WOMEN 'S HEALT H SWAB PLUS, NELSY bryson species, tma Positi ve negati ve abnormal Not Available [facility] (Lab) [address] [facility], [place], [address], 10/08/2024 14:15:37 10/07/19 25 10/07/2024 WOMEN 'S HEALT H SWAB PLUS, NELSY bryson glabrata, tma Negati ve negati ve Not Available [facility] (Lab) [address] [place], [address], 10/08/2024 14:15:37 10/07/19 25 10/07/2024 WOMEN 'S HEALT H SWAB PLUS, NELSY trichomonas vaginalis, tma Negati ve negati ve Not Available [facility] (Lab) [address] [place], [address], 10/08/2024 14:15:37 10/07/19 25 10/07/2024 WOMEN 'S HEALT H SWAB PLUS, NELSY chlamydia trachomatis, PCR Negati ve negati ve Not Available [facility] (Lab) [address] [facility], [place], [address], 10/08/2024 14:15:37 10/07/1910/07/2024 WOMEN 'S HEALT H [...] ded in this panel . Not Available [facility] (Lab) [address] [facility], [place], [address], 10/08/2024 14:15:37 04/21/20 24 04/21/2024 US, pelvi s No observ ation record ed. [email or web address] [place] [address], [place], [address], 04/21/2024 11:49:56 04/21/20 24 04/21/2024 US, trans vagin al No observ ation record ed. [email or web address] [place] [address], [place], [address], 04/21/2024 11:50:07 0804/21/2024 US, pelvi s No observ ation record ed. [email or web address] [address], [place], [address], 04/21/2024 22:05:03 11/01/19 25 11/01/2024 US, breas t, bilat eral No observ ation record ed. [address], [place], [address], 11/03/2024 11:59:27 11/02/19 25 11/01/2024 MAMMO , danna sudheer, bilat eral No observ ation record ed. [place] [address], [place], [address], 11/03/2024 11:59:47 Result Notes None recorded. Procedures Surgical History Date Name Laterality Status Provider Name and Address Organization Details Recorded Time 01/08/20 24 TOTAL HYSTERECTOMY, LAPAROSCOPIC, WITH BILATERAL SALPINGECTOMY (SURG) completed Rachel Agarwal [facility] 01/13/2024 14:32:15 05/28/20 23 Date of Last Pap Smear completed Kera [facility] 06/15/2023 09:31:12 09/21/19 19 [facility] 06/15/2023 09:32:45 09/21/19 19 [facility] 06/15/2023 09:35:24 09/21/19 17 procedure on heart completed Shweta Kolb [facility] 05/28/2023 10:22:29 09/21/19 10 cholecystectomy completed Keratrae Booker [facility] 06/15/2023 09:35:53 09/21/18 90 tonsilectomy/adeno ids [facility] 06/15/2023 09:35:35 09/21/18 86 procedure on heart valve completed Shweta Kennedi [facility] 05/28/2023 10:22:18 Imaging Results Imaging Date Name Status LastModified by Organization Details LastModified Time 04/21/2024 US, pelvis completed [email or web address] [place] [address], [place], [address], 04/21/2024 11:49:56 04/21/2024 US, transvaginal completed [email or web address] [address], [place], [address], 04/21/2024 11:50:07 04/21/2024 US, pelvis completed [email or web address] [address], [place], [address], 04/21/2024 22:05:03 11/01/2024 US, breast, bilateral completed [email or web address] [facility] [facility] [address], [place], [address], 11/03/2024 11:59:27 11/01/2024 MAMMO, screening, bilateral completed [facility] [address], [place], [address], 11/03/2024 11:59:47 Procedure Notes None recorded. Medical Equipment None Reported. Allergies Allergen ID Allergen Name Allergen Category Reaction Reaction Severity Criticality Documentation Date Start Date Code Code System Note Provider Name and Address Organization Details Recorded Time ethinyl estradiol / levonorge strel medicatio n cough mild Not available 05/28/2023 04579 8 RxNorm Shweta Kolb byron [facility] 10:00:37 Medications Name Sig Start Date Stop Date Status Note LastModified by Organization Details LastModified Time binaxnow cov kit home sade 06/15 completed Not Available Not Available Not Available flowflex kit test 06/15 completed Not Available Not Available Not Available [facility] 2-pk kit covid-19 06/15 completed Not Available Not Available Not Available amoxicillin 500 mg capsule TAKE 1 CAPSULE BY MOUTH TWICE DAILY 01/13 completed Not Available Not Available Not Available promethazin e-DM 6.25 mg-15 mg/5 mL oral syrup TAKE 5 ML BY MOUTH EVERY 4 TO 6 HOURS NEEDED FOR COUGH 12/24 completed Not Available Not Available Not Available doxycycline hyclate 100 mg capsule TAKE 1 CAPSULE BY MOUTH TWICE DAILY FOR 7 DAYS 01/06 completed Not Available Not Available Not Available [...] tablet TAKE 1 TABLET BY MOUTH EVERY 72 HOURS active Not Available Not Available No t Available tolterodine ER 4 mg capsule,ext ended release 24 hr Take 1 capsule every day by oral route. 01/06 completed Not Available Not Available Not Available hydrocodone 5 mg-acetamin ophen 325 mg tablet TAKE 1 TABLET BY MOUTH EVERY 3 HOURS NEEDED FOR PAIN 03/08 completed Not Available Not Available Not Available ondansetron HCl 4 mg tablet TAKE 1 TABLET BY MOUTH EVERY 8 HOURS NEEDED 01/06 completed Not Available Not Available Not Available sertraline 100 mg tablet Take 1 tablet every day by oral route. 2024 active Not Available Not Available Not Avai lable acyclovir 400 mg tablet TAKE 1 TABLET BY MOUTH TWICE DAILY 12/24 completed Not Available Not Available Not Available acyclovir 800 mg tablet TAKE 1 TABLET BY MOUTH ONCE DAILY active Not Available Not Available No t Available dicyclomine 20 mg tablet TAKE 1 TABLET BY MOUTH FOUR TIMES DAILY DIRECTED 04/21 completed Not Available Not Available Not Available benzonatate 100 mg capsule TAKE 1 CAPSULE BY MOUTH THREE TIMES DAILY NEEDED FOR COUGH 04/18 /2025 completed Not Available Not Available Not Available prednisone 50 mg tablet TAKE 1 TABLET BY MOUTH ONCE DAILY 10/07 completed Not Available Not Available Not Available losartan 25 mg tablet TAKE 1 TABLET BY MOUTH EVERY DAY 01/06 completed Not Available Not Available Not Available ergocalcife rol (vitamin D2) 1,250 mcg (50,000 unit) capsule TAKE 1 CAPSULE BY MOUTH ONCE A WEEK active Not Available Not Available No t Available methylpredn isolone 4 mg tablets in a dose pack TAKE BY MOUTH DIRECTED ON INSIDE OF PACKAGE 01/06 completed Not Available Not Available Not Available albuterol sulfate HFA 90 mcg/actuati on aerosol inhaler INHALE 1 PUFF BY MOUTH 4 TIMES DAILY active Not Available Not Available No [...] TABLET BY MOUTH TWICE DAILY WITH FOOD 01/06 completed Not Available Not Available Not Available amoxicillin 875 mg-potassiu m clavulanate 125 [...] TAKE 1 TABLET BY MOUTH ONCE DAILY 01/06 completed Not Available Not Available Not Available Vienva 0.1 mg-20 mcg tablet TAKE [...] Updated DateTime 04/21/2024 167.64 cm 34.2 kg/m2 51233.58 g 104 mm[Hg] 68 mm[Hg] Carmela [facility] 4 10:03:52 Date Recorded Body height Body mass index (BMI) Body weight Systolic blood pressure Diastolic blood pressure Provider Name and Address Organization Details Last Updated DateTime 06/06/2024 167.64 cm 32.4 kg/m2 25921.07 g 116 mm[Hg] 76 mm[Hg] [facility] 11:51:33 Date Recorded Body height Body mass index (BMI) Body weight Systolic blood pressure Diastolic blood pressure Provider Name and Address Organization Details Last Updated DateTime 07/18/2024 167.64 cm 31.6 kg/m2 05010.1 g 120 mm[Hg] 79 mm[Hg] [facility] 17:00:28 Date Recorded Body height Body mass index (BMI) Body weight Systolic blood pressure Diastolic blood pressure Provider Name and Address Organization Details Last Updated DateTime 10/07/2024 167.64 cm 31.3 kg/m2 85027.92 g 115 mm[Hg] 76 mm[Hg] [facility] 5 14:30:20 Date Recorded Body height Body mass index (BMI) Body weight Systolic blood pressure Diastolic blood pressure Provider Name and Address Organization Details Last Updated DateTime 01/06/2025 167.64 cm 31.2 kg/m2 05322.33 g 123 mm[Hg] 75 mm[Hg] SHAYAN Solitario [facility] 5 12:45:50 Social History Question Answer Notes LastModified by Organizat ion Details LastModified Time Tobacco Smoking Status Never Smoker Kera matthews, [facility] 06/15/2023 09:35:14 Do You Have An [...] Or The Highest Degree You Have Received? [id number] Information not available 05/28/2023 What Is Your Occupation? [employer] Information not available 07/18/2024 Are There Any Guns Present In Your Home? No Information not available 05/28/2023 Have You Ever Been Counseled For Unhealthy Alcohol Use? No [email or web address] Information not available 06/15/2023 Do You Use [...] Anxious, Or Unable To Sleep At Night)? [id number] Information not available 05/28/2023 Do You Use Any Illicit Or Recreational Drugs? Yes Information not available 05/28/2023 Do You Use Sunscreen Routinely? Yes Information not available 05/28/2023 Has Tobacco Cessation Counseling Been Provided? No [email or web address] Information not available 06/15/2023 Have You Used IV Drugs? No Information not available 05/28/2023 Do You Or Have You Ever Used Any Other Forms Of Tobacco Or Nicotine? No Information not available 06/15/2023 Sex: Unknown Functional Status Question Answer Note LastModified by Organizat ion Details LastModified Time Do you have difficulty walking or climbing stairs? No [email or web address] Information not available 06/15/2023 Are you able to walk? [email or web address] Information not available 05/28/2023 Are you able to care for yourself? Yes [email or web address] Information not available 06/15/2023 Do you have difficulty dressing or bathing? No [email or web address] Information not available 06/15/2023 What is your [...] N Drug/Latex Allergies/Reactions Y Blood Transfusion N Dermatologic Disorders N Lung Disease N Defects or Inherited Disease Y Breast Problem N Gestational Diabetes N Hematologic disorders N Anesthesia Complications N History of STI Y Deep Vein Thrombosis N Polycystic ovary syndrome Y Anxiety Disorder Y Autoimmune disease N Arthritis N Infertility N Polyps N Acid Reflux (GERD) Y History of abnormal pap Y Cancer N Stroke N Varicosities N Neurologic/Epilepsy N Endometriosis N High Cholesterol N Headaches N Fibromyalgia N Kidney Disease N Heart Problems Y [...] SNOMED-CT Code Diagnosis ICD10 Code Diagnosis Note [id number] Jake Humphreys MD [place] [address] [address] 05/28/2023 09:54:29 05/28/2023 11:10:40 Dyspareunia 98501548 N94.10 30-year-ol d with severe dyspareuni a. [...] favoring a hysterecto my. Pain in pelvis 86481511 R10.2 Vaginal dryness 20262892 N89.8 [id number] [facility] [address] [address] 06/11/2023 09:14:33 06/11/2023 09:51:48 Dyspareunia 39291784 N94.10 30-year-ol d with severe dyspareuni a. [...] options, patient is favoring a hysterecto my. [id number] Jake Humphreys MD [place] [address] [address] 06/15/2023 09:09:06 06/15/2023 12:54:30 Mixed anxiety and depressive disorder 181179589 F41.8 Herpes simplex 17228019 B00.9 Vitamin D deficiency 347 83998 E55.9 [facility] 217391202 Z30.9 Dyspareunia 11641066 N94 .10 this patient is a 38-year-ol [...] decision to perform surgery. Pain in pelvis 59305958 R10.2 Dysmenorrhea 756305187 N 94.6 [id number] Jake Humphreys MD [place] [address] [address] 11/20/2023 09:07:47 11/20/2023 10:21:52 Dysmenorrhea 034239414 N94.6 Dyspareunia 54265730 N94 .10 Lesion of endometrium 92 89938361 9101 N85.9 Menorrhagia 803168967 N9 2.0 This patient is a 38-year-ol [...] 50% of our Meeting was counseling . [id number] Jake Humphreys MD [place] [address] [address] 12/28/2023 16:49:29 12/29/2023 00:16:02 Menorrhagia 923646968 N92.0 this patient is a 30-year-ol d female with severe menorrhagi a. We have agreed to perform total laparoscop ic hysterecto my, bilateral salpingect subha, and right oophorecto my. She understand s risks, benefits, and alternativ es. She is completed the informed consent process and is ready to proceed. [id number] Jake Humphreys MD [place] [address],[facility] [address] 01/14/2024 09:42:58 01/14/2024 10:30:23 Postoperative care [id number] Z48.89 female Patient presents for postop follow-up. She is 1 week postop from a total laparoscop ic hysterecto my bilateral salpingect subha. She has no complaints . Her incisions are clean dry and intact. She is recovering normally. She will follow-up as needed. [id number] Myrna Han [place] [address] [address] 01/26/2024 12:35:54 01/27/2024 11:06:36 Urinary tract infectious disease 44999003 N39.0 [id number] Jake Humphreys MD [place] [address] [address] 03/08/2024 09:40:27 03/08/2024 10:31:55 Postoperative pain 003596770 G89.18 38-year-ol d who is 8 weeks [...] 50% was counseling . She was examined. [id number] Jake Humphreys MD [place] [address],[place] [address] 04/07/2024 11:20:44 04/07/2024 12:51:08 Dysuria 14014695 R30.0 Chronic in terstitial cystitis 127685074 N30.10 Dyspareunia 51731990 N94 .10 this patient is a 39 old female presents for persistent postoperat amilcar dyspareuni a, urinary urgency, pain with a full bladder. She is symptoms of interstiti al cystitis. [email or web address]. We will obtain pelvic ultrasound . We need to examine her existing ovary and pelvis. Her pain has improved with intercours e. It occurs after intercours e and persists for several hours. She is tender anterior vagina /bladder area. This was identified on a previous exam. I spent more than 20 minutes on her care. [id number] Selma Patton [place] [address],[place] [address] 04/21/2024 09:25:12 04/21/2024 10:02:12 Pain in pelvis 70365687 R10.2 [id number] Jake Humphreys MD [place] [address] [address] 04/21/2024 09:25:35 04/21/2024 11:42:57 Dyspareunia 71101953 N94.10 this patient is a 39-year-ol d [...] needed. Look forward to Dr. Miller consult. [id number] NEEL CACERES MD [place] [address] [address] 06/06/2024 11:32:49 06/06/2024 12:46:43 Postcoital bleeding 60991629 N93.0 - patient reports one episode of postcoital bleeding 2 weeks ago as well as 1 clot when house cleaning yesterday- no pain- exam significan t for small area of granulatio n tissue at vaginal cuff, cuff otherwise intact and normal- silver nitrate applied without issue Venereal d isease screening 858638213 Z11.3 - will send urine CT/GC/Tric h- blood testing ordered [id number] Jake Humphreys MD [place] [address] [address] 07/18/2024 16:45:59 07/18/2024 17:36:52 Postcoital bleeding 96907507 N93.0 this patient is a 39-year-ol d [...] will contact us if there are problems. [id number] NEEL CACERES MD [place] [address] [address] 10/07/2024 14:23:12 10/10/2024 10:33:28 Mass of left breast [id number] 4481521 N63.20 - new left breast mass since Thursday- not painful- no nipple discharge- no family hx of breast cancer- exam demonstrat es possible 2cm mass vs fibrocysti c tissue- diagnostic mammogram ordered Vaginitis 14566949 N76.0 - thick white discharge and external irritation - swab sent- rx for diflucan sent Health Concerns Section Related Observation LastModified by Organization Detai ls LastModified Time None Recorded Concern Status LastModified by Organization Details LastModified Time None Recorded Advance Directives Directive N: Payers Encounter Date Sequence Insurance Name Policy Number Policy Barton Covered Member ID Barton Member ID Guarantor Name 04/21/[address] [facility] [id number] Destini Dilallo [id number] Destini Dilallo 06/06/[address] [facility] [id number] Destini Dilallo [id number] Destini Dilallo 07/18/[address] [facility] [id number] Destini Dilallo [id number] Destini Dilallo 10/07/[address] [facility] [id number] Destini Dilallo [id number] Destini Dilallo Notes Date Note Type Note [...] consult. Jake Humphreys MD [address], [place], [address], [facility] 04/21/2024 11:34:49 06/06/2024 text/html Patient presents for evaluation of postcoital bleeding. She reports an episode of postcoital bleeding 2 weeks ago, nonpainful. She reports bleeding on the toilet paper, did not need to wear a pad. Yesterday while cleaning, she had another episode of bleeding, one clot then nothing more. No pain with bleeding. NEEL CACERES MD [address], [place], [address], [facility] 06/06/2024 12:23:47 07/18/2024 text/html this patient [...] problems. Jake Humphreys MD [address], [place], [address], [facility] 07/18/2024 17:31:47 10/07/2024 text/html Patient presents for vaginitis evaluation and breast exam. Reports vaginal irritation since Thursday, recent antibiotic usage. No abnormal discharge. Also reports new left breast lump noticed Thursday. No hx of breast lump. No family hx of breast cancer. No pain. No nipple discharge. Recent norovirus, URI illnesses over the past 2-3 weeks. NEEL CACERES MD [address], [place], [address], [facility] 10/07/2024 18:31:28 OBGyn Episode Ob Episode Information Episode Created Date Number of Fetuses Patient Bloodtype Patient rh Status Prepregnancy Weight lbs Domestic Partner Domestic Partner Phone Father Name Nanotechnology Technician Status 06/15/20 23 1 CLOSED Fetus Data First Name Last Name Admitted to NICU Weight (g) Sex Living Outcome Pediatric Complications Fetus ID Race Codes Race Delivery Type 4167.14 9704 M Full Term [id number] Vaginal Delivery Gilberto Calculation Initial Gilberto Date [...] Domestic Partner Domestic Partner Phone Father Name Nanotechnology Technician Status 06/15/20 23 1 CLOSED Fetus Data First Name Last Name Admitted to NICU Weight (g) Sex Living Outcome Pediatric Complications Fetus ID Race Codes Race Delivery Type 3713.55 7704 F Full Term [id number] Vaginal Delivery Gilberto Calculation Initial Gilberto Date [...]
--- OUTSIDE RECORDS SUMMARY | 2025-01-09 14:33 | XMS_ITS | Encounter Summary ---
Author Organization [facility] Address [facility] [place] [address] Care Team Providers Care Entertainment & Media Correspondent Name Role Phone Alida Kelin MD Primary Care Provider [phone] Encounter Details Date Type Department Care Team (Late st Contact Info) Description 10/19/2024 MyChart Message Enc [facility] Medical Group Multispecialty Care [place] [address] [place] [address] [address] [place], [place] [id number] Alida Klein MD [address] [place] [address] [address] [place] [address] Jardiance Social History Tobacco Use Types Packs/Day [...] PM CDT Legal Sex Female 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 Gender Identity Female 03/25/2024 3:16 PM CDT Sexual Orientation Straight 03/25/2024 3: 16 PM CDT documented as of this encounter Plan of Treatment Upcoming Encounters Date Type Department Care Team (Late st Contact Info) Description 03/14/2025 8:00 AM CDT Office Visit [facility] Medical Group Multispecialty Care [place] [address] [address] [place], [place] [address] Alida Klein MD [address] [place] [address] [phone] documented as of this encounter Visit Diagnoses Not on filedocumented in this encounter Care Teams Entertainment & Media Correspondent Relationship Specialty Start Date End Date Alida Klein MD [address] [place] [address] [id number] PCP - General INTERNAL MEDICINE 03/23/24 documented as of this encounter
--- OUTSIDE RECORDS SUMMARY | 2025-01-09 14:33 | XMS_ITS | CONTINUITY OF CARE DOCUMENT ---
Author Name sarahluis eduardo sarahluis eduardo Address Unknown Organization [facility] Address [address] [place] [address] Phone [phone] Care Team Providers Care Audit Lead Name Role Phone Zion TYLER, Basilio Unavailable Alida Klein MD Unavailable [phone] Alida Klein MD Unavailable [phone] PROBLEMS Condition Status Date Provider Notes Obesity [...] In-person encounter Office Visit Basilio Donovan MD [facility] - In-person encounter Office Visit Basilio Donovan MD [facility] Hypertension--echo ef nl, 11/2023 - In-person encounter Office Visit Basilio Donovan MD [facility] SnoringSleep apnea, declines cpapFatigueLower extremity edema - In-person encounter Office Visit Basilio Donovan MD [facility] - In-person encounter Office Visit Basilio Donovan MD [facility] Office VITAL SIGNS Date Observation [...] Donovan MD blood pressure, cuff size [facility], diastolic 79 mm[Hg] Ja rret blood pressure, systolic 136 mm[Hg] Jar ret pulse rate 80 /min Ab oxygen saturation, oximetry 97 % Ab respiratory rate E&M 14 /min Ab weight E&M 220 [lb_av] Ab y height E&M 66 [in_i] [facility] y Body Mass Index (Ratio) 35.51 kg/m2 Bright Donovan MD pulse rate 67 /min Pippa Lewis blood pressure, cuff size regular [facility] blood pressure, diastolic 76 mm[Hg] [facility] blood pressure, systolic 124 mm[Hg] Chato [...] Payer name Policy type / Coverage type [place] red democrat ID UHC [id number] ADVANCE DIRECTIVES Name Date DISCUSSED - NO DECISION MADE TREATMENT PLAN Date Name Performer [id number],SBasilio MD [id number],WBasilio MD [id number],Basilio Saucedo MD [id number],Basilio Saucedo MD [id number],WBasilio MD [id number],S, Jordi Ahmedza i [id number],S, Jordi Ahmedza i [id number],S, Jordi Ahmedza i [id number],S, Jordi Ahmedza i [id number],S, Jordi Ahmedza i Cardiology [facility]ai Cardiology [...] 1 tablet by mouth once a day [facility]: H er updated medication list for this problem includes: Losartan 25 Mg Tablet (Losartan) ..... Take 1 tablet by mouth every day Aspirin 81 Mg Tablet,delayed Release (dr/ec) (Aspirin) ..... Take 1 tablet by mouth once a day BP today: 136/79 P rior BP: 124/76 (12/01/2023) [facility]: O rders: C OMPREHENSIVE METABOLIC PANEL, W/EGFR (82701) P ROBNP, N TERMINAL (98682) C RP, high sensitivity (29300) H EMOGLOBIN A1c (496) T SH, free T4, total T3 (7444) LIPID PANEL (7600) C BC (INCLUDES DIFF/PLT) (6399) F ERRITIN (457) I GÉNESIS AND TOTAL IRON BINDING CAPACITY (7573) V itamin D, 25-Hydroxy (959846) [facility]: B P today: 124/76 P rior BP: 146/88 (07/16/2022) Her updated medication list for this problem includes: Losartan 25 Mg Tablet (Losartan) ..... Take 1 tablet by mouth every day Aspirin 81 Mg Tablet,delayed Release (dr/ec) (Aspirin) ..... Take 1 tablet by mouth once a day Orders: C omplete Echo (66940) C OMPREHENSIVE METABOLIC PANEL, W/EGFR (44349) P ROBNP, N TERMINAL (00687) C RP, high sensitivity (63898) H EMOGLOBIN A1c (496) T SH, free T4, total T3 (7444) L IPID PANEL (7600) C BC (INCLUDES DIFF/PLT) (6399) F ERRITIN (457) I GÉNESIS AND TOTAL IRON BINDING CAPACITY (7573) V itamin D, 25-Hydroxy (523818) [facility] Cardiology: O rders: C OMPREHENSIVE METABOLIC PANEL, W/EGFR (59117) P ROBNP, N TERMINAL (40511) C RP, high sensitivity (25858) H EMOGLOBIN A1c (496) T SH, free T4, total T3 (7444) LIPID PANEL (7600) C BC (INCLUDES DIFF/PLT) (6399) F ERRITIN (457) I GÉNESIS AND TOTAL IRON BINDING CAPACITY (7573) V itamin D, 25-Hydroxy (344403) [facility] Cardiology: O rders: C omplete Echo (42222) C OMPREHENSIVE METABOLIC PANEL, W/EGFR (42540) P ROBNP, N TERMINAL (12640) C RP, high sensitivity (86391) H EMOGLOBIN A1c (496) T SH, free T4, total T3 (7444) L IPID PANEL (7600) C BC (INCLUDES DIFF/PLT) (6399) F ERRITIN (457) I GÉNESIS AND TOTAL IRON BINDING CAPACITY (7573) V itamin D, 25-Hydroxy (381018) [facility] Cardiology: O rders: C omplete Echo (97960) C OMPREHENSIVE METABOLIC PANEL, W/EGFR (16915) P ROBNP, N TERMINAL (23183) C RP, high sensitivity (85766) H EMOGLOBIN A1c (496) T SH, free T4, total T3 (7444) L IPID PANEL (7600) C BC (INCLUDES DIFF/PLT) (6399) F ERRITIN (457) I GÉNESIS AND TOTAL IRON BINDING CAPACITY (7573) V itamin D, 25-Hydroxy (637430) Jordi Person Telehealth- needs apt on Sep [...]
[2025-01-09 14:43] LABS: Barbiturate Screen Urine Negative (Negative); Benzodiazepines Screen Urine Negative (Negative)
[2025-01-09 14:50] LABS: Amphetamine Screen Urine Negative (Negative); Cannabinoid Screen Urine Positive (Negative); Cocaine Screen Urine Negative (Negative); Methadone Screen Urine Negative (Negative); Opiate Screen Urine Negative (Negative); Phencyclidine Screen Urine Negative (Negative)
[2025-01-09 14:56] LABS: Influenza A QL RT-PCR Negative (Negative); Influenza B QL RT-PCR Negative (Negative); RSV RNA, RT-PCR Negative (Negative); SARS-CoV-2 RNA PCR Negative (Negative)
[2025-01-09 15:11] VITALS: BP 124/75; PULSE 64; RESP 16; TEMP 36.7; O2SAT 100
--- OUTSIDE RECORDS SUMMARY | 2025-01-09 15:30 | XMS_ITS | Clinical Summary ---
Author Organization [facility] Address [address] [place] [address] Care Team Providers Care Natural Foods Clerk Name Role Phone Alida Klein MD Primary Care Provider [phone] Allergies No known active allergies Medications acyclovir [...] hyperglycemia, without long-term current use of insulin ([facility]) 12/21/2020 Nonrheumatic pulmonary valve stenosis 12/14/2018 Encounters Date Type Department Care Team Description 01/01/2025 Scan [employer] INFO SRVCS Scanned, Doc [facility] Lab (SCAN) 12/12/2024 4:00 PM CDT Office Visit [facility] Medical [facility] Multispecialty Care - [place] [address] [place] [address] Alida Klein MD Follow Up; Diabetes; Dysuria; Abdominal Pain (Started on Thursday. Pt is int in STI testing ); Urinary Frequency (States she is going pee more frequent ) 12/12/2024 Hospital Encounter [facility] [address] [place] [address] Alida Klein MD Discharge Disposition: Home or Self Care (Routine Discharge) 12/12/2024 - 12/12/2024 11:59 PM CDT Hospital Encounter [facility] [address] [place] [address] Alida Klein MD Discharge Disposition: Home or Self Care (Routine Discharge) 12/12/2024 Travel 11/14/2024 Scan [facility] INFO SRVCS Scanned, Doc [facility] Image (SCAN) 11/01/2024 Scan [facility] INFO [facility]VCS Scanned, Doc Med Group Mammogram (SCAN); Ultrasound (SCAN) 11/01/2024 [facility] [place] [address] [place] [address] Alida Klein MD Follow Up Call 10/19/2024 Orders [facility] [place] [address] [place] [address] Alida Klein MD 10/19/2024 MyChart Message [facility] [place] 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 Gender Identity Female 03/25/2024 3:16 PM CDT [...] Description 03/14/2025 8:00 AM CDT Office Visit [facility] Medical Group Multispecialty Care [place] [address] [address] [place] [address] Alida Klein MD [address] [place] [address] 157 [place] [address] Health Maintenance Due Date Last Done Comments Diabetes: Retinopathy Eye Exam 2003 Hepatitis B Vaccines (1 of 3 - 19+ 3-dose series) 2004 COVID-19 Vaccine ( season) 2024 07/13/2021, 12/29/2020, 12/02/2020 PHQ-2 (Physician [place]) 09/21/2024 03/23/2024 Hemoglobin A1C 03/13/2025 09/12/2024, 07/0 [...] hyperglycemia, without long-term current use of insulin ([facility]) Dysuria CHLAMYDIA GC RNA Routine 12/12/2024 4:32 PM CDT Type 2 diabetes mellitus with hyperglycemia, without long-term current use of insulin ([facility]) Dysuria URINALYSIS AUTO DIP Routine 12/12/2024 Urethritis IMAGE GENERIC 11/14/2024 MAMMOGRAM GENERIC (SCAN ORDER) 11/01/2024 ULTRASOUND GENERIC (SCAN ORDER) 11/01/2024 HEMOGLOBIN, GLYCOSYLATED Routine 09/12/2024 4:42 PM DIRECTOR OF HEALTH CARE MARKETING Type 2 diabetes mellitus with hyperglycemia, without [...] SPEC DESCRIPTION URINE 12/13/19 4:32 PM CDT [facility] CHLAMYDIA RNA TMA NEGATIVE NEGATIVE 025 1:52 PM CDT [facility] Comment:PERFORMED BY NUCLEIC ACID AMPLIFICATION N.GONORRHOEAE RNA TMA NEGATIVE NEGATIVE 12/13/2024 1:52 PM CDT [facility] Comment:PERFORMED BY NUCLEIC ACID AMPLIFICATION URINE SPECIMEN / Unknown 12/12/2024 4:32 PM CDT us Alida Klein MD MICROBIOLOGY - GENERAL ORDERABLE S Final Result [facility] [address] [place] [address], * URINE BACTERIA CULTURE (12/12/2024 4:32 PM CDT) SPEC DESCRIPTION URINE CLEAN CATCH 12/12/2024 4:32 PM CDT [facility] SPECIAL REQUESTS NO SPECIAL REQUEST 12/12/2024 4:32 PM CDT [facility] CULTURE RESULT NO GROWTH (< OR = 1,000 CFU/ML) 12/14/2024 2:19 PM CDT [facility] URINE SPECIMEN OBTAINED BY CLEAN CATCH PROCEDURE / Unknown 12/12/2024 4:32 PM CDT 12/13/2024 1:31 PM CDT Alida Klein MD MICROBIOLOGY - GENERAL ORDERABLE S Final Result [facility] [address] [place] [address], [id number] * (ABNORMAL) URINALYSIS AUTO DIP (12/12/2024) COLOR (U) YELLOW YELLOW [address], REED TRANSPARENCY CLEAR CLEAR [address], REED GLUCOSE (U) NEGATIVE NEGATIVE MG/DL MG[address], REED BILIRUBIN (U) NEGATIVE NEGATIVE MG-[address], REED KETONES MG/DL (U) NEGATIVE NEGATIVE MG/DL MG-[address], REED SPECIFIC GRAVITY (U) >=1.030 1.001 - 1.035 MG[address], REED BLOOD (U) NEGATIVE NEGATIVE MG-[address], REED U PH 6.0 5.0 - 9.0 MG[address], REED PROTEIN (U) TRACE(A) NEGATIVE mg/dL MG-[address], REED UROBILINOGEN 0.2 0.2 - 1.0 EU/dL = mg/dL MG-[address], REED NITRITES NEGATIVE NEGATIVE MG/DL MG-[address], REED LEUKOCYTES (U) NEGATIVE NEGATIVE MG-[address], REED URINE SPECIMEN OBTAINED BY CLEAN CATCH PROCEDURE / Unknown 12/12/2024 us Alida Klein MD URINE ORDERABLES Final Result [facility]-[address], REED [address] [facility] [address] [place] [address], * IMAGE GENERIC (11/14/2024) Anatomical Region Laterality Modality Other 11/14/2024 [facility] Scanned SCANNING Final Resu lt * MAMMOGRAM GENERIC (SCAN ORDER) (11/01/2024) Anatomical Region Laterality Modality Other 11/01/2024 [facility] Scanned SCANNING Final Resu lt * ULTRASOUND GENERIC (SCAN ORDER) (11/01/2024) Anatomical Region Laterality Modality Other 11/01/2024 [facility] Scanned SCANNING Final Resu lt * (ABNORMAL) HEMOGLOBIN, GLYCOSYLATED (09/12/2024 4:42 PM DIRECTOR OF HEALTH CARE MARKETING) HGB A1C 5.4 4.5 - 6.2 % 09/12/2024 8:05 PM DIRECTOR OF HEALTH CARE MARKETING [facility] ESTIMATED AVG GLUCOSE 108(H) 74 - 106 MG/DL 09/12/2024 8:05 PM DIRECTOR OF HEALTH CARE MARKETING [facility] 09/12/2024 4:42 PM DIRECTOR OF HEALTH CARE MARKETING Alida Klein MD LABORATORY Final Result [facility] [address] [place] [address], * (ABNORMAL) LIPID PANEL (03/25/2024 8:46 AM CDT) CHOLESTEROL 178 <200 MG/DL 03/25/2024 2:39 PM CDT [facility] TRIGLYCERIDES 96 <150 MG/DL 03/25/2024 2:39 PM CDT [facility] HDL 52 >40 MG/DL 03/25/2024 2:39 PM CDT [facility] LDL-C 107(H) <100 MG/DL 03/25/2024 2:39 PM CDT [facility] VLDL CALCULATION 19 5 - 28 MG/DL 03/25/2024 2:39 PM CDT [facility] CHOL/HDL RATIO 3.4 0.0 - 4.0 03/25/2024 2:39 PM CDT [facility] LDL/HDL 2.1 0.41 - 2.13 03/25/2024 2:39 PM CDT [facility] NON HDL CHOLESTEROL 126 <140 MG/DL 03/25/2024 2:39 PM CDT [facility] 03/25/2024 8:46 AM CDT us Alida Klein MD LABORATORY Final Result [facility] [address] [place] [address], [place] [phone] * HEPATITIS C ANTIBODY (03/25/2024 8:46 AM CDT) HEPATITIS C AB NON-REACTI VE NON-REACT ANTOINETTE 03/25/2024 6:23 PM CDT [facility] Comment: ANTIBODIES TO HCV NOT DETECTED. DOES NOT EXCLUDE THE POSSIBILITY OF EXPOSURE TO HCV. 03/25/2024 8:46 AM CDT us Alida Klein MD LABORATORY Final Result [facility] [address] [place] [address], [place] [phone] [id number] from Last 3 Months or Most Recently Relevant to Health Maintenance Insurance [facility] [address] Care Teams Natural Foods Clerk Relationship Specialty Start Date End Date Alida Klein MD [address] [address] PCP - General INTERNAL MEDICINE 03/23/24
--- OUTSIDE RECORDS SUMMARY | 2025-01-09 15:30 | XMS_ITS | Encounter Summary ---
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 Gender Identity Female 03/25/2024 3:16 PM CDT Sexual Orientation Straight 03/25/2024 3: 16 PM CDT documented as of this encounter Plan of Treatment Upcoming Encounters Date Type Department Care Team (Late st Contact Info) Description 03/14/2025 8:00 AM CDT Office Visit [facility] Medical Group Multispecialty [address] [place] [address] Alida Klein MD [address] [facility] [address] [place] [address] documented as of this encounter Procedures Procedure Name Priority Date/Time Associated Diagnosis Comments OUTSIDE LAB (SCAN ORDER) 01/01/2025 OUTSIDE LAB (SCAN ORDER) 01/01/2025 documented in this encounter Results * OUTSIDE LAB (SCAN ORDER) (01/01/2025) 01/01/2025 us [facility] Scanned SCANNING Final Resu lt * OUTSIDE LAB (SCAN ORDER) (01/01/2025) 01/01/2025 us [employer] Scanned SCANNING Final Resu lt documented in this encounter Visit Diagnoses Not on filedocumented in this encounter Care Teams Branch Examiner Relationship Specialty Start Date End Date Alida Klein MD [address] [address] PCP - General INTERNAL MEDICINE 03/23/24 documented as of this encounter
--- OUTSIDE RECORDS SUMMARY | 2025-01-09 15:30 | XMS_ITS | Clinical Summary ---
Author Organization [facility] Address [address] [place] [address] Care Team Providers Care Deckhand Crab Boat Name Role Phone Rodrigo Rizvi MD Primary Care Provider [phone] Source Comments [facility],non-owned Affiliates and Associated Physician Practices is amultiple site organization consisting of ambulatory clinics and hospital sitesin [place], [place], [place] and [place]. This disclosure is being madepursuant to the Care Everywhere program and may not contain all information available regarding this patient. Last updated 18.[facility] Allergies No known active allergies Medications * Be aware that medications may not be up to date on this document. Alwaysverify current medications with the patient. acyclovir (ZOVIRAX) 400 MG tablet Take 400 mg by mouth once daily 04/20/2018 Active vitamin D, ergocalciferol, (DRISDOL) 32913 UNITS capsule 04/20/2018 Activ e VIENVA 0.1-20 [...] AM CDT Legal Sex Female 9:56 AM CASING SPLITTER Gender Identity Female 02/12/2022 10:37 AM CDT [...] age to complete this topic Insurance [employer] SELF PAY NO INSURANCE Member Subscriber Plan / Payer (Ef fective for All Dates) Name:Destini Maza Member ID:Not on file Relation to Subscriber:Not on file Name:DESTINI MAZA Subscriber ID:Not on file Address: [address] [place] [address] Payer ID:Not on file Group ID:Not on file Type:Self Pay Address: [place] HEALTH CARE SELF PAY NO INSURANCE Member Subscriber Plan / Payer (Ef fective for All Dates) Name:Destini Maza Member ID:Not on file Relation to Subscriber:Not on file Name:DESTINI MAZA Subscriber ID:Not on file Address: [address] [place] [address] Payer ID:Not on file Group ID:Not on file Type:Self Pay Address: [place] SELF PAY NO INSURANCE Member Subscriber Plan / Payer (Ef fective for All Dates) Name:Destini Maza Member ID:Not on file Relation to Subscriber:Not on file Name:DESTINI MAZA Subscriber ID:Not on file Address: [address] [place] [address] Payer ID:Not on file Group ID:Not on file Type:Self Pay Address: [place], [place] Care Teams Deckhand Crab Boat Relationship Specialty Start Date End Date Rodrigo Rizvi MD [address] [place] [phone] PCP - General 04/27/18
--- OUTSIDE RECORDS SUMMARY | 2025-01-09 15:30 | XMS_ITS | Encounter Summary ---
Author Organization [facility] Address Counts include 234 beds at the [facility] [place] [address] Care Team Providers Care Trouble Shooter Name Role Phone Alida Klein MD Primary Care Provider [phone] Encounter Details Date Type Department Care Team (Late st Contact Info) Description 10/19/2024 MyChart Message Enc [facility] Medical Group Multispecialty Care - [place] [address] [place] [address] [address] [place], [place] [phone] Alida Klein MD [address] [place] [address] [address] [place] [address] Jardiance Social History Tobacco Use Types Packs/Day [...] PM CDT 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 Gender Identity Female 03/25/2024 3:16 PM CDT Sexual Orientation Straight 03/25/2024 3: 16 PM CDT documented as of this encounter Plan of Treatment Upcoming Encounters Date Type Department Care Team (Late st Contact Info) Description 03/14/2025 8:00 AM CDT Office Visit [facility] Medical Group Multispecialty Care [place] [address] [address] [place], [place] [phone] Alida Klein MD [address] [place] [address] [phone] documented as of this encounter Visit Diagnoses Not on filedocumented in this encounter Care Teams Trouble Shooter Relationship Specialty Start Date End Date Alida Klein MD [address] [place] [address] [phone] PCP - General INTERNAL MEDICINE 03/23/24 documented as of this encounter
--- OUTSIDE RECORDS SUMMARY | 2025-01-09 15:31 | XMS_ITS | Encounter Summary ---
Author Organization [facility] Address [facility]ly [facility] [place] [address] Care Team Providers Care Coat Finisher Name Role Phone Alida Klein MD Primary Care Provider [phone] Encounter Details Date Type Department Care Team (Late st Contact Info) Description 05/20/2024 MyChart Message Enc [facility] Medical Group Multispecialty Care - [place] [address] [address] [place], [place] [phone] Alida Klein MD [address] [place] [address] [address] [place], [place] [phone] Lab results. 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 Sex Female 7:40 PM TECHNICAL SUPPORT CONSULTANT Gender Identity Female 03/25/2024 3:16 PM CDT Sexual Orientation Straight 03/25/2024 3: 16 PM CDT documented as of this encounter Plan of Treatment Upcoming Encounters Date Type Department Care Team (Late st Contact Info) Description 03/14/2025 8:00 AM CDT Office Visit [facility] Medical Group Multispecialty Care [place] [address] [address] [place] [address] Alida Klein MD [address] [place] [address] documented as of this encounter Visit Diagnoses Not on filedocumented in this encounter Additional Health Concerns Infection Onset Date Last Indicated Resolved Time COVID-19 Rule Out 09/30/2024 09/30/2024 09/30/2024 3:56 PM TECHNICAL SUPPORT CONSULTANT documented as of this encounter Care Teams Coat Finisher Relationship Specialty Start Date End Date Alida Klein MD [address] [place] [phone] PCP - General INTERNAL MEDICINE 03/23/24 documented as of this encounter
--- OUTSIDE RECORDS SUMMARY | 2025-01-09 15:31 | XMS_ITS | Clinical Summary ---
Author Organization [facility] Care Team Providers Care Sr Account Executive Name Role Phone Unavailable Primary Care Provider [...]
--- OUTSIDE RECORDS SUMMARY | 2025-01-09 15:31 | XMS_ITS | Encounter Summary ---
Author Organization [facility] Address [facility] [place] [address] Care Team Providers Care Safety Deposit Supervisor Name Role Phone Alida Klein MD Primary Care Provider [phone] Encounter Details Date Type Department Care Team (Late st Contact Info) Description 05/18/2024 MyChart Message Enc [facility] Medical Group Multispecialty Care - [place] [address] [place] [address] [address] [place] [address] Alida Klein MD [address] [place] [address] [address] [place] [address] Lab results 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 Sex Female 7:40 PM CAREER CENTER DIRECTOR Gender Identity Female 03/25/2024 3:16 PM CDT Sexual Orientation Straight 03/25/2024 3: 16 PM CDT documented as of this encounter Plan of Treatment Upcoming Encounters Date Type Department Care Team (Late st Contact Info) Description 03/14/2025 8:00 AM CDT Office Visit [facility] Medical Group Multispecialty Care - [place] [address] [address] [place] [address] Alida Klein MD [address] [place] [address] documented as of this encounter Visit Diagnoses Not on filedocumented in this encounter Additional Health Concerns Infection Onset Date Last Indicated Resolved Time COVID-19 Rule Out 09/30/2024 09/30/2024 09/30/2024 3:56 PM CAREER CENTER DIRECTOR documented as of this encounter Care Teams Safety Deposit Supervisor Relationship Specialty Start Date End Date Alida Klein MD [address] [place] [address] PCP - General INTERNAL MEDICINE 03/23/24 documented as of this encounter
--- OUTSIDE RECORDS SUMMARY | 2025-01-09 15:31 | XMS_ITS | Encounter Summary ---
Author Organization [facility] Address [facility] [place] [address] Care Team Providers Care Electrogalvanizing Machine Operator Name Role Phone Alida Klein MD Primary Care Provider [phone] Encounter Details Date Type Department Care Team (Late st Contact Info) Description 05/21/2024 MyChart Message Enc [facility] Medical Group Multispecialty Care - [place] [address] [place] [address] [address] [place], [place] [id number] Alida Klein MD [address] [place] [address] [address] [place] [address] STD test result Social History Tobacco Use [...] PM CDT Legal Sex Female 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 Gender Identity Female 03/25/2024 3:16 PM CDT Sexual Orientation Straight 03/25/2024 3: 16 PM CDT documented as of this encounter Plan of Treatment Upcoming Encounters Date Type Department Care Team (Late st Contact Info) Description 03/14/2025 8:00 AM CDT Office Visit [facility] Medical Group Multispecialty Care [place] [address] [address] [place] [address] Alida Klein MD [address] [place] [address] documented as of this encounter Visit Diagnoses Not on filedocumented in this encounter Additional Health Concerns Infection Onset Date Last Indicated Resolved Time COVID-19 Rule Out 09/30/2024 09/30/2024 09/30/2024 3:56 PM PARK MANAGER documented as of this encounter Care Teams Electrogalvanizing Machine Operator Relationship Specialty Start Date End Date Alida Klein MD [address] [place] [address] PCP - General INTERNAL MEDICINE 03/23/24 documented as of this encounter
--- OUTSIDE RECORDS SUMMARY | 2025-01-09 15:31 | XMS_ITS | CONTINUITY OF CARE DOCUMENT ---
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 oJrdi Person Sleep apnea, declines cpap active Basilio massey MD Fatigue active Basilio Donovan MD Lower extremity edema active Basilio Kramer Snoring completed - Basilio Donovan MD Hypertension--echo ef nl, 11/2023 active Basilio Donovan MD ENCOUNTERS Date Type Provider Location Encounter Diag nosis - In-person encounter Office Visit Basilio Donovan MD [facility] - In-person encounter Office Visit Basilio Donovan MD [facility] Hypertension--echo ef nl, 11/2023 - In-person encounter Office Visit Basilio Donovan MD [facility] SnoringSleep apnea, declines cpapFatigueLower extremity edema - In-person encounter Office Visit Basilio Donovan MD [facility] - In-person encounter Office Visit Basilio Donovan MD [facility] Office VITAL SIGNS Date Observation [...] Donovan MD blood pressure, cuff [facility], diastolic 79 mm[Hg] Ja rret blood pressure, systolic 136 mm[Hg] Jar ret pulse rate 80 /min Ab oxygen saturation, oximetry 97 % Ab respiratory rate E&M 14 /min Ab weight E&M 220 [lb_av] Ab y height E&M 66 [in_i] [facility] y Body Mass Index (Ratio) 35.51 kg/m2 Bright Donovan MD pulse rate 67 /min Pippa Lewis blood pressure, cuff size regular [facility] blood pressure, diastolic 76 mm[Hg] Fa [facility] blood pressure, systolic 124 mm[Hg] [...] Payer name Policy type / Coverage type [place] red democrat ID UHC [id number] ADVANCE DIRECTIVES Name Date DISCUSSED - NO DECISION MADE TREATMENT PLAN Date Name Performer [id number],SBasilio MD [id number],WBasilio MD [id number],Basilio Saucedo MD [id number],Basilio Saucedo MD [id number],WBasilio MD [id number],S, Jordi Ahmedza i [id number],S, Jordi Ahmedza i [id number],S, Jordi Ahmedza i [id number],S, Jordi Ahmedza i [id number],S, Jordi Ahmedza i Cardiology Jordi Ahmedzai Cardiology [...] 1 tablet by mouth once a day [facility]: H er updated medication list for this problem includes: Losartan 25 Mg Tablet (Losartan) ..... Take 1 tablet by mouth every day Aspirin 81 Mg Tablet,delayed Release (dr/ec) (Aspirin) ..... Take 1 tablet by mouth once a day BP today: 136/79 P rior BP: 124/76 (12/01/2023) [facility]iology: O rders: C OMPREHENSIVE METABOLIC PANEL, W/EGFR (89507) P ROBNP, N TERMINAL (12215) C RP, high sensitivity (38254) H EMOGLOBIN A1c (496) T SH, free T4, total T3 (7444) LIPID PANEL (7600) C BC (INCLUDES DIFF/PLT) (6399) F ERRITIN (457) I GÉNESIS AND TOTAL IRON BINDING CAPACITY (7573) V itamin D, 25-Hydroxy (179710) [facility]: B P today: 124/76 P rior BP: 146/88 (07/16/2022) Her updated medication list for this problem includes: Losartan 25 Mg Tablet (Losartan) ..... Take 1 tablet by mouth every day Aspirin 81 Mg Tablet,delayed Release (dr/ec) (Aspirin) ..... Take 1 tablet by mouth once a day Orders: C omplete Echo (16399) C OMPREHENSIVE METABOLIC PANEL, W/EGFR (59209) P ROBNP, N TERMINAL (62792) C RP, high sensitivity (67165) H EMOGLOBIN A1c (496) T SH, free T4, total T3 (7444) L IPID PANEL (7600) C BC (INCLUDES DIFF/PLT) (6399) F ERRITIN (457) I GÉNESIS AND TOTAL IRON BINDING CAPACITY (7573) V itamin D, 25-Hydroxy (281756) [facility]ordi Yvon[facility]ai Cardiology: O rders: C OMPREHENSIVE METABOLIC PANEL, W/EGFR (27616) P ROBNP, N TERMINAL (27063) C RP, high sensitivity (39624) H EMOGLOBIN A1c (496) T SH, free T4, total T3 (7444) LIPID PANEL (7600) C BC (INCLUDES DIFF/PLT) (6399) F ERRITIN (457) I GÉNSEIS AND TOTAL IRON BINDING CAPACITY (7573) V itamin D, 25-Hydroxy (332087) [facility]i Russellzai Cardiology: O rders: C omplete Echo (76135) C OMPREHENSIVE METABOLIC PANEL, W/EGFR (32446) P ROBNP, N TERMINAL (96782) C RP, high sensitivity (43634) H EMOGLOBIN A1c (496) T SH, free T4, total T3 (7444) L IPID PANEL (7600) C BC (INCLUDES DIFF/PLT) (6399) F ERRITIN (457) I GÉNESIS AND TOTAL IRON BINDING CAPACITY (7573) V itamin D, 25-Hydroxy (921143) [facility]i Russell[facility]ai Cardiology: O rders: C omplete Echo (55659) C OMPREHENSIVE METABOLIC PANEL, W/EGFR (87429) P ROBNP, N TERMINAL (76003) C RP, high sensitivity (35280) H EMOGLOBIN A1c (496) T SH, free T4, total T3 (7444) L IPID PANEL (7600) C BC (INCLUDES DIFF/PLT) (6399) F ERRITIN (457) I GÉNESIS AND TOTAL IRON BINDING CAPACITY (7573) V itamin D, 25-Hydroxy (073830) Jordi Person Telehealth- needs apt on Sep [...]
--- OUTSIDE RECORDS SUMMARY | 2025-01-09 15:31 | XMS_ITS | Encounter Summary ---
Author Organization [facility] Address [facility] [place] [address] Care Team Providers Care Cartographic Drafter Name Role Phone Alida Klein MD Primary Care Provider [phone] Encounter Details Date Type Department Care Team (Late st Contact Info) Description 05/04/2024 MyChart Message Enc [facility] Medical Group Multispecialty Care [facility] [address] [place] [address] [address] [place] [address] Alida Klein MD [address] [place] [address] [address] [place] [address] Ramón Social History Tobacco Use Types Packs/Day [...] PM CDT Legal Sex Female 7:40 PM UNIFORM PATROL POLICE OFFICER Gender Identity Female 03/25/2024 3:16 PM CDT Sexual Orientation Straight 03/25/2024 3: 16 PM CDT documented as of this encounter Plan of Treatment Upcoming Encounters Date Type Department Care Team (Late st Contact Info) Description 03/14/2025 8:00 AM CDT Office Visit [facility] Medical Group Multispecialty Care - [place] [address] [address] [place] [address] Alida Klein MD [address] [address] documented as of this encounter Visit Diagnoses Not on filedocumented in this encounter Additional Health Concerns Infection Onset Date Last Indicated Resolved Time COVID-19 Rule Out 09/30/2024 09/30/2024 09/30/2024 3:56 PM UNIFORM PATROL POLICE OFFICER documented as of this encounter Care Teams Cartographic Drafter Relationship Specialty Start Date End Date Alida Klein MD [address] [place] [address] PCP - General INTERNAL MEDICINE 03/23/24 documented as of this encounter
[2025-01-09 17:36] VITALS: BP 129/76; PULSE 69; RESP 16; O2SAT 98
[2025-01-09] MEDS: ONDANSETRON INJ 4 MG/2 ML VIAL IV PUSH (17:51)
[2025-01-09] MEDS: FAMOTIDINE 20 MG/2 ML VIAL IV PUSH (17:51)
[2025-01-09] MEDS: DEXTROSE 5%/LACTATED RINGERS 1,000 ML 1000 ML IV CONT (17:51)
[2025-01-09 19:41] VITALS: BP 122/68; PULSE 59; RESP 12; TEMP 36.5; O2SAT 98
== END 2025-01-09 19:42 | disposition home or self-care (01) ==
PROVIDERS: Registered Nurse; Emergency Provider Student in an Organized Health Care Education/Training Program; PCP Internal Medicine
DX: K52.29 Other allergic and dietetic gastroenteritis and colitis (principal); K21.9 Gastro-esophageal reflux disease without esophagitis; Z79.82 Long term (current) use of aspirin; Z20.822 Contact with and (suspected) exposure to COVID-19
CPT/HCPCS: 36415; 80053; 80307; 81003; 83690; 85025; 87637; 96361; 96374; 96375; 99284; J2405; J7121

== ENCOUNTER 2025-02-22 13:21 | Outpatient (CLI) | payer OTHER, SELFPAY ==
--- NOTE | ~2025-02-22 | MR_ITS ---
MR breast BI wo/w con 02/27/2025 17:40 CDT INDICATION: Left breast mass seen on recent examination. TECHNIQUE: MRI of the breasts perform using standard protocol pre-and post IV contrast with the follo wing sequences: Axial T2 STIR, axial T1, axial vibrant T1 with fat suppression precontrast and multip hasic postcontrast. 17 cc MultiHance administered intravenously. COMPARISON: Diagnostic mammogram and ultrasound dated 11/01/2024 FINDINGS: The breasts are composed of scattered areas of fibroglandular content. Right breast: There are no abnormalities on the precontrast sequences. There is minimal background pa renchymal enhancement. No enhancing lesions following contrast administration. No areas of enhancem ent meeting threshold criteria on CAD analysis. No evidence of signal abnormalities in the axillary or internal mammary node distributions. LEFT BREAST: Precontrast sequences demonstrate a 1.8 x 1.3 cm mass in the upper outer quadrant of the right breast, posterior third. This mass is hypointense on T1 and slightly hyperintense on T2 fat figueredo ppression without abnormal contrast enhancement, likely benign. There is minimal background parenchym al enhancement. No enhancing lesions following contrast administration. No areas of enhancement me eting threshold criteria on CAD analysis. No evidence of signal abnormalities in the axillary or in ternal mammary node distributions. IMPRESSION: 1: Right breast: Negative. No evidence of malignancy. BI-RADS category 1. Recommend annual mammo graphy follow-up. 2: Left breast: Probable benign left breast mass, upper outer quadrant of the left breast, posterior third. No abnormal enhancement. Six-month follow-up diagnostic left mammogram and Limited left breas t ultrasound recommended. BI-RADS CATEGORY 3-PROBABLY BENIGN FINDING RECOMMENDATION: 6 month follow up recommended. 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 IMPRESSION: 1: Right breast: Negative. No evidence of malignancy. BI-RADS category 1. Recommend annual mammography follow-up. 2: Left breast: Probable benign left breast mass, upper outer quadrant of the left breast, posterior third. No abnormal enhancement. Six-month follow-up diag nostic left mammogram and Limited left breast ultrasound recommended. BI-RADS CATEGORY 3-PROBABLY BENIGN FINDING RECOMMENDATION: 6 month follow up recommended.
--- OUTSIDE RECORDS SUMMARY | 2025-02-22 13:29 | XMS_ITS | Clinical Summary ---
Author Organization [facility] Care Team Providers Care Minibus Driver Name Role Phone Unavailable Primary Care Provider [...]
== END 2025-02-22 13:22 | disposition home or self-care (01) ==
PROVIDERS: PCP Internal Medicine; Visit Provider Surgery
DX: R92.8 Other abnormal and inconclusive findings on diagnostic imaging of breast (principal); N63.21 Unspecified lump in the left breast, upper outer quadrant
CPT/HCPCS: 77049; A9577; C8908

== ENCOUNTER 2025-04-09 18:33 | Emergency (ER) | payer OTHER, SELFPAY ==
--- NOTE | ~2025-04-09 | CT_ITS ---
EXAMINATION: CT abdomen pelvis wo con DATE: 04/09/2025 22:16 INDICATION: Left lower quadrant pain. Possible kidney stones TECHNIQUE: Computed tomography (CT) of the abdomen and pelvis was performed without intravenous contr ast. The dose-length product was 227.10 mGy-cm. Automated exposure control and iterative reconstruction technique were employed. COMPARISON: CT dated 03/07/2024. FINDINGS: Status post cholecystectomy. Nonobstructing right nephrolithiasis measuring 4 mm. No signif icant hydronephrosis. Lung bases unremarkable. Heart size normal. Nonobstructive bowel gas pattern. T he liver, spleen, pancreas, adrenal glands and left kidney are unremarkable. There is hemangioma of L 3. No free air or free fluid. No significant vascular abnormality. No lymphadenopathy. There are pelv ic phleboliths. IMPRESSION: 1. Nonobstructing right nephrolithiasis. Reviewed, dictated and finalized at location A.
--- NOTE | ~2025-04-09 | US_ITS ---
EXAMINATION: US pelvic complete w TV INDICATION: Left ovarian cyst Comparison:CT dated 04/09/2025 TECHNIQUE: Multiple transabdominal and endovaginal sonographic images of the pelvis performed. FINDINGS: Uterus and right ovary are surgically absent. Left ovary measures 3.8 x 4.4 x 4.5 cm and co ntains a 3.7 cm cyst. Small amount of free fluid in the left adnexa. Normal Doppler signal in the lef t ovary without evidence for torsion. There is no free fluid in the pelvis. There are no abnormal masses seen on either side. IMPRESSION: 1. Simple cyst of the left ovary measuring 3.7 cm. Reviewed, dictated and finalized at location A.
--- OUTSIDE RECORDS SUMMARY | 2025-04-09 18:35 | XMS_ITS | Encounter Summary ---
Author Organization [facility] Address [facility] [place] [address] Care Team Providers Care Outside Sales Account Executive Name Role Phone Alida Klein MD Primary Care Provider [phone] Encounter Details Date Type Department Care Team (Late st Contact Info) Description 05/21/2024 MyChart Message Enc [facility] Medical Group Multispecialty Care - [place] [address] [place] [address] [address] [place], [place] [id number] Alida Klein MD [address] [place] [address] 157 [place] [address] STD test result Social History Tobacco Use [...] PM CDT Legal Sex Female 7:40 PM DOPE HEATER Gender Identity Female 03/25/2024 3:16 PM CDT Sexual Orientation Straight 03/25/2024 3: 16 PM CDT documented as of this encounter Plan of Treatment Upcoming Encounters Date Type Department Care Team (Late st Contact Info) Description 06/19/2025 7:00 AM CDT Office Visit [facility] Medical Group Multispecialty Care [place] [address] [address] [place] [address] Alida Klein MD [address] [place] [address] documented as of this encounter Visit Diagnoses Not on filedocumented in this encounter Additional Health Concerns Infection Onset Date Last Indicated Resolved Time COVID-19 Rule Out 09/30/2024 09/30/2024 09/30/2024 3:56 PM DOPE HEATER documented as of this encounter Care Teams Outside Sales Account Executive Relationship Specialty Start Date End Date Alida Klein MD [address] [place] [address] PCP - General INTERNAL MEDICINE 03/23/24 documented as of this encounter
--- OUTSIDE RECORDS SUMMARY | 2025-04-09 18:35 | XMS_ITS | Encounter Summary ---
Author Organization [facility] Address [facility] [place] [address] Care Team Providers Care Machine Stuffer Name Role Phone Alida Klein MD Primary Care Provider [phone] Encounter Details Date Type Department Care Team (Late st Contact Info) Description 05/04/2024 MyChart Message Enc [facility] Medical Group Multispecialty Care [facility] [address] [place] [address] [address] [place] [address] Alida Klein MD [address] [place] [address] 157 [place] [address] Ramón Social History Tobacco Use Types Packs/Day [...] PM CDT Legal Sex Female 7:40 PM CROP QUANTITATIVE GENETICIST Gender Identity Female 03/25/2024 3:16 PM CDT Sexual Orientation Straight 03/25/2024 3: 16 PM CDT documented as of this encounter Plan of Treatment Upcoming Encounters Date Type Department Care Team (Late st Contact Info) Description 06/19/2025 7:00 AM CDT Office Visit [facility] Medical Group Multispecialty Care - [place] [address] [address] [place] [address] Alida Klein MD [address] [address] documented as of this encounter Visit Diagnoses Not on filedocumented in this encounter Additional Health Concerns Infection Onset Date Last Indicated Resolved Time COVID-19 Rule Out 09/30/2024 09/30/2024 09/30/2024 3:56 PM CROP QUANTITATIVE GENETICIST documented as of this encounter Care Teams Machine Stuffer Relationship Specialty Start Date End Date Alida Klein MD [address] [place] [address] PCP - General INTERNAL MEDICINE 03/23/24 documented as of this encounter
--- OUTSIDE RECORDS SUMMARY | 2025-04-09 18:35 | XMS_ITS | Encounter Summary ---
Author Organization [facility] Address [facility] [place] [address] Care Team Providers Care Skin Grader Name Role Phone Alida Klein MD Primary Care Provider [phone] Encounter Details Date Type Department Care Team (Late st Contact Info) Description 10/19/2024 MyChart Message Enc [facility] Medical Group Multispecialty Care - [place] [address] [place] [address] [address] [place], [place] [id number] Alida Klein MD [address] [place] [address] 157 [place] [address] Jardiance Social History Tobacco Use Types Packs/Day [...] PM CDT Legal Sex Female 7:40 PM DYE ROOM HELPER Gender Identity Female 03/25/2024 3:16 PM CDT Sexual Orientation Straight 03/25/2024 3: 16 PM CDT documented as of this encounter Plan of Treatment Upcoming Encounters Date Type Department Care Team (Late st Contact Info) Description 06/19/2025 7:00 AM CDT Office Visit [facility] Medical Group Multispecialty Care - [place] [address] [address] [place], [place] [id number] Alida Klein MD [address] [place] [id number] documented as of this encounter Visit Diagnoses Not on filedocumented in this encounter Care Teams Skin Grader Relationship Specialty Start Date End Date Alida Klein MD [address] [place] [id number] PCP - General INTERNAL MEDICINE 03/23/24 documented as of this encounter
--- OUTSIDE RECORDS SUMMARY | 2025-04-09 18:35 | XMS_ITS | Encounter Summary ---
Author Organization [facility] Address [facility] [place] [address] Care Team Providers Care Head Banquet Waitress Name Role Phone Alida Klein MD Primary Care Provider [phone] Encounter Details Date Type Department Care Team (Late st Contact Info) Description 05/20/2024 MyChart Message Enc [facility] Medical Group Multispecialty Care - [place] [address] [address] [place], [place] [id number] Alida Klein MD [address] [place] [address] [address] [place], [place] [id number] Lab results. 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 Sex Female 7:40 PM TIMBER SELECTOR Gender Identity Female 03/25/2024 3:16 PM CDT Sexual Orientation Straight 03/25/2024 3: 16 PM CDT documented as of this encounter Plan of Treatment Upcoming Encounters Date Type Department Care Team (Late st Contact Info) Description 06/19/2025 7:00 AM CDT Office Visit [facility] Medical Group Multispecialty Care - [place] [address] [address] [place] [address] Alida Klein MD [address] [place] [address] documented as of this encounter Visit Diagnoses Not on filedocumented in this encounter Additional Health Concerns Infection Onset Date Last Indicated Resolved Time COVID-19 Rule Out 09/30/2024 09/30/2024 09/30/2024 3:56 PM TIMBER SELECTOR documented as of this encounter Care Teams Head Banquet Waitress Relationship Specialty Start Date End Date Alida Klein MD [address] [place] [address] PCP - General INTERNAL MEDICINE 03/23/24 documented as of this encounter
--- OUTSIDE RECORDS SUMMARY | 2025-04-09 18:35 | XMS_ITS | Clinical Summary ---
Author Organization [facility] Care Team Providers Care Oil Refinery Operator Name Role Phone Unavailable Primary Care Provider [...]
--- OUTSIDE RECORDS SUMMARY | 2025-04-09 18:35 | XMS_ITS | Encounter Summary ---
Author Organization [facility] Address [facility] [place] [address] Care Team Providers Care It Systems Analyst Consultant Name Role Phone Alida Klein MD Primary Care Provider [phone] Encounter Details Date Type Department Care Team (Late st Contact Info) Description 05/18/2024 MyChart Message Enc [facility] Medical Group Multispecialty Care - [place] [address] [place] [address] [address] [place] [address] Alida Klein MD [address] [place] [address] 157 [place] [address] Lab results 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 Sex Female 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 AND 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 Gender Identity Female 03/25/2024 3:16 PM CDT Sexual Orientation Straight 03/25/2024 3: 16 PM CDT documented as of this encounter Plan of Treatment Upcoming Encounters Date Type Department Care Team (Late st Contact Info) Description 06/19/2025 7:00 AM CDT Office Visit [facility] Medical Group Multispecialty Care - [place] [address] [address] [place] [address] Alida Klein MD [address] [place] [address] documented as of this encounter Visit Diagnoses Not on filedocumented in this encounter Additional Health Concerns Infection Onset Date Last Indicated Resolved Time COVID-19 Rule Out 09/30/2024 09/30/2024 09/30/2024 3:56 PM SUPERVISOR DRILLING AND SHOOTING documented as of this encounter Care Teams It Systems Analyst Consultant Relationship Specialty Start Date End Date Alida Klein MD [address] [place] [address] PCP - General INTERNAL MEDICINE 03/23/24 documented as of this encounter
--- OUTSIDE RECORDS SUMMARY | 2025-04-09 18:35 | XMS_ITS | Clinical Summary ---
Author Organization [facility] Address [address] [place] [address] Care Team Providers Care Adjunct Latin Professor Name Role Phone Alida Klein MD Primary Care Provider [phone] Allergies No known active allergies Medications acyclovir (ZOVIRAX) 800 MG tablet Take 1 tablet (800 mg total) by mouth daily. 4 Active vitamin D2, ergocalciferol, (DRISDOL) 1.25 mg capsule Take 1 capsule (1.25 mg total) by mouth once a week. 4 Active sertraline (ZOLOFT) 50 MG tablet Take 1.5 tablets (75 mg total) by mouth daily. Active ASPIRIN 81 OR Take 81 [...] days. Indications: Diabetes 9 mL 5 Active famotidine (PEPCID) 20 MG tablet Take 1 tablet (20 mg total) by mouth 2 (two) times daily. 03/14/20 25 Discontinu ed(Therapy completed) semaglutide (OZEMPIC) 2 MG/3ML injection (PEN)Indication s:Diabetes Mellitus Inject 0.25 mg into the skin every 7 days. 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 [facility] [address] [place] [address] Alida Klein MD Follow Up; Weight Problem; Diabetes 03/14/2025 Travel 02/22/2025 Scan HEALTH INFO SRVCS Scanned, Doc Med Group MRI (SCAN) 01/30/2025 Telephone [facility] [address] [place] [address] Alida Klein MD Follow Up Call 01/09/2025 Scan MG HEALTH INFO SRVCS Scanned, Doc Med Group Lab (SCAN) 01/09/2025 Scan MG HEALTH INFO SRVCS Scanned, Doc Med Group Lab (SCAN) from Last 3 Months Immunizations Immunization Administration [...] PM CDT Legal Sex Female 7:40 PM WIRER HELPER Gender Identity Female 03/25/2024 3:16 PM CDT Sexual Orientation Straight 03/25/2024 3: 16 PM CDT Last Filed Vital Signs Vital Sign Reading Time Taken Comments Blood Pressure 108/56 03/14/2025 7:53 AM CDT Pulse 74 03/14/2025 7:53 AM CDT Temperature 36.4 C (97.5 F) 03/14/2025 7:53 AM CDT Respiratory Rate 14 03/14/2025 7:53 AM CDT Oxygen Saturation 96% 03/14/2025 7:53 AM CDT Inhaled Oxygen Concentration - - Weight 84.2 kg (185 lb 9.6 oz) 03/14/2025 7:53 A M CDT Height 167.6 cm (5' 6) 03/14/2025 7:53 AM CDT Body Mass Index 29.96 03/14/2025 7:53 AM CDT Plan of Treatment Upcoming Encounters Date Type Department Care Team (Late st Contact Info) Description 06/19/2025 7:00 AM CDT Office Visit [facility] Medical [facility] Mult[facility]pecialty Care [address] [place] [address] Alida Klein MD [address] [facility] [address] [place] [address] Health Maintenance Due Date Last Done Comments Kidney Health Evaluation 1985 Diabetes: Retinopathy Eye Exam 2003 Hepatitis B Vaccines (1 of 3 - 19+ 3-dose series) 2004 COVID-19 Vaccine (2023- season) 2024 07/13/2021, 12/29/2020, 12/02/2020 PHQ-2 (Physician [place]) 09/21/2024 03/23/2024 Hemoglobin A1C 03/13/2025 09/12/2024, 07/0 01/2024, 01/01/2023, Additional history exists Annual Physical 03/23/2025 03/23/2024 Lipid Panel 03/25/2025 03/25/2024 Mammogram Screening 11/01/2026 11/01/2024 DTaP, Tdap and Td Vaccines (3 - [...] Procedure Name Priority Date/Time Associated Diagnosis Comments MRI GENERIC 02/22/2025 OUTSIDE LAB COVID-19 (SCAN ORDER) Routine 01/09/2025 OUTSIDE LAB (SCAN ORDER) 01/09/2025 OUTSIDE LAB (SCAN ORDER) 01/09/2025 OUTSIDE LAB (SCAN ORDER) 01/09/2025 OUTSIDE LAB (SCAN ORDER) 01/09/2025 MAMMOGRAM GENERIC (SCAN ORDER) 11/01/2024 HEMOGLOBIN, GLYCOSYLATED Routine 09/12/2024 4:42 PM WIRER HELPER Type 2 diabetes mellitus with hyperglycemia, without long-term current use of insulin ([facility]/HCC) HEPATITIS C ANTIBODY Routine 03/25/2024 8:46 AM [...] Recently Relevant to Health Maintenance Results * MRI GENERIC (02/22/2025) Anatomical Region Laterality Modality Other 02/22/2025 Result [facility] Scanned SCANNING Final Resu lt * OUTSIDE LAB COVID-19 (01/09/2025) CORONAVIRUS SARS COV 2 PCR (RESP) NOT DETECTED NOT DETECTED [facility] 01/09/2025 Result [facility] Scanned SCANNING Final Resu lt [facility] * OUTSIDE LAB (SCAN ORDER) (01/09/2025) Only the most recent of4 resultswithin the time period is included. 01/09/2025 Result [facility] Scanned SCANNING Final Resu lt * MAMMOGRAM GENERIC (SCAN ORDER) (11/01/2024) Anatomical Region Laterality Modality Other 11/01/2024 Result [facility] Scanned SCANNING Final Resu lt * (ABNORMAL) HEMOGLOBIN, GLYCOSYLATED (09/12/2024 4:42 PM WIRER HELPER) HGB A1C 5.4 4.5 - 6.2 % 09/12/2024 8:05 PM WIRER HELPER [facility] ESTIMATED AVG GLUCOSE 108(H) 74 - 106 MG/DL 09/12/2024 8:05 PM WIRER HELPER [facility] 09/12/2024 4:42 PM WIRER HELPER Alida Klein MD LABORATORY Final Result [facility] [address] [place] [address], * (ABNORMAL) LIPID PANEL (03/25/2024 8:46 AM CDT) CHOLESTEROL 178 <200 MG/DL 03/25/2024 2:39 PM CDT [facility] TRIGLYCERIDES 96 <150 MG/DL 03/25/2024 2:39 PM CDT [facility] HDL 52 >40 MG/DL 03/25/2024 2:39 PM CDT [facility] LDL-C 107(H) <100 MG/DL 03/25/2024 2:39 PM CDT [facility] VLDL CALCULATION 19 5 - 28 MG/DL 03/25/2024 2:39 PM CDT [facility] CHOL/HDL RATIO 3.4 0.0 - 4.0 03/25/2024 2:39 PM CDT [facility] LDL/HDL 2.1 0.41 - 2.13 03/25/2024 2:39 PM CDT [facility] NON HDL CHOLESTEROL 126 <140 MG/DL 03/25/2024 2:39 PM CDT [facility] 03/25/2024 8:46 AM CDT Alida Klein MD LABORATORY Final Result [facility] [place] [address] [place] [address], [place] [phone] * HEPATITIS C ANTIBODY (03/25/2024 8:46 AM CDT) HEPATITIS C AB NON-REACTI VE NON-REACT ANTOINETTE 03/25/2024 6:23 PM CDT [facility] Comment: ANTIBODIES TO HCV NOT DETECTED. DOES NOT EXCLUDE THE POSSIBILITY OF EXPOSURE TO HCV. 03/25/2024 8:46 AM CDT Alida Klein MD LABORATORY Final Result Performing Organization Address City/[facility]/ZIP Co de Phone Number [facility] [address] [place] [address], [place] [phone] from Last 3 Months or Most Recently Relevant to Health Maintenance Insurance Care Teams Adjunct Latin Professor Relationship Specialty Start Date End Date Alida Klein MD [address] [facility] [address] [place] [id number] PCP - General INTERNAL MEDICINE 03/23/24
[2025-04-09 18:43] VITALS: BP 103/49; PULSE 86; RESP 16; TEMP 36.4; O2SAT 98
[2025-04-09 19:55] VITALS: BP 117/59; PULSE 67; RESP 17; O2SAT 98
[2025-04-09 20:15] LABS: Add Urine Microscopic? YES; Appearance Urine Cloudy (Clear); Glucose Urine UA Negative (Negative); Leukocyte Esterase Ur Negative LEU/UL (Negative); Nitrate Urine Negative (Negative); Non Pathogenic Casts 0-2; Specific Grav Ur 1.028 (1.001-1.035)
--- OUTSIDE RECORDS SUMMARY | 2025-04-09 20:56 | XMS_ITS | Clinical Summary ---
Author Organization [facility] Address [address] [place] [address] Care Team Providers Care Guzzler Builder Name Role Phone Alida Klein MD Primary Care Provider [phone] Allergies No known active allergies Medications acyclovir [...] long-term current use of insulin ([facility]) 12/21/2020 Nonrheumatic pulmonary valve stenosis 12/14/2018 Encounters Date Type Department Care Team Description 03/14/2025 8:00 AM CDT [facility] [place] [address] [address] [facility] [address] [place] [address] Alida Klein MD Follow Up; Weight Problem; Diabetes 03/14/2025 Travel 02/22/2025 Scan HEALTH INFO SRVCS Scanned, Doc Med Group MRI (SCAN) 01/30/2025 Telephone [facility] 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 Gender Identity Female 03/25/2024 3:16 PM CDT [...] Description 06/19/2025 7:00 AM CDT [facility] [address] [place] [address] Alida Klein MD [address] [facility] [address] [place] [address] Health Maintenance Due Date Last Done Comments Kidney Health Evaluation 1985 Diabetes: Retinopathy Eye Exam 2003 Hepatitis B Vaccines (1 of 3 - 19+ 3-dose series) 2004 COVID-19 Vaccine (2023- season) 2024 07/13/2021, 12/29/2020, 12/02/2020 PHQ-2 (Physician [place]) 09/21/2024 03/23/2024 Hemoglobin A1C 03/13/2025 09/12/2024, 07/0 [...] 11/01/2024 HEMOGLOBIN, GLYCOSYLATED Routine 09/12/2024 4:42 PM MORTGAGE LOAN INTERVIEWER Type 2 diabetes mellitus with hyperglycemia, without long-term current use of insulin ([facility]/HCC) HEPATITIS C ANTIBODY Routine 03/25/2024 8:46 [...] Anatomical Region Laterality Modality Other 02/22/2025 Result [facility] Scanned SCANNING Final Resu lt * OUTSIDE LAB COVID-19 (01/09/2025) CORONAVIRUS SARS COV 2 PCR (RESP) NOT DETECTED NOT DETECTED [facility] 01/09/2025 Result [facility] Scanned SCANNING Final Resu lt [facility] * OUTSIDE LAB (SCAN ORDER) (01/09/2025) Only the most recent of4 resultswithin the time period is included. 01/09/2025 Result [facility] Scanned SCANNING Final Resu lt * MAMMOGRAM GENERIC (SCAN ORDER) (11/01/2024) Anatomical Region Laterality Modality Other 11/01/2024 Result [facility] Scanned SCANNING Final Resu lt * (ABNORMAL) HEMOGLOBIN, GLYCOSYLATED (09/12/2024 4:42 PM MORTGAGE LOAN INTERVIEWER) HGB A1C 5.4 4.5 - 6.2 % 09/12/2024 8:05 PM MORTGAGE LOAN INTERVIEWER [facility] ESTIMATED AVG GLUCOSE 108(H) 74 - 106 MG/DL 09/12/2024 8:05 PM MORTGAGE LOAN INTERVIEWER [facility] 09/12/2024 4:42 PM MORTGAGE LOAN INTERVIEWER Alida Klein MD LABORATORY Final Result [facility] [address] [place] [address], * (ABNORMAL) LIPID PANEL (03/25/2024 8:46 AM CDT) CHOLESTEROL 178 <200 MG/DL 03/25/2024 2:39 PM CDT [facility] TRIGLYCERIDES 96 <150 MG/DL 03/25/2024 2:39 PM CDT [facility] HDL 52 >40 MG/DL 03/25/2024 2:39 PM CDT [facility] LDL-C 107(H) <100 MG/DL 03/25/2024 2:39 PM CDT [facility] VLDL CALCULATION 19 5 - 28 MG/DL 03/25/2024 2:39 PM CDT [facility] CHOL/HDL RATIO 3.4 0.0 - 4.0 03/25/2024 2:39 PM CDT [facility] LDL/HDL 2.1 0.41 - 2.13 03/25/2024 2:39 PM CDT [facility] NON HDL CHOLESTEROL 126 <140 MG/DL 03/25/2024 2:39 PM CDT [facility] 03/25/2024 8:46 AM CDT Alida Klein MD LABORATORY Final Result [facility] [address] [facility] [place] [address], [place] [phone] * HEPATITIS C ANTIBODY (03/25/2024 8:46 AM CDT) HEPATITIS C AB NON-REACTI VE NON-REACT ANTOINETTE 03/25/2024 6:23 PM CDT [facility] Comment: ANTIBODIES TO HCV NOT DETECTED. DOES NOT EXCLUDE THE POSSIBILITY OF EXPOSURE TO HCV. 03/25/2024 8:46 AM CDT Alida Klein MD LABORATORY Final Result Performing Organization Address City/[facility]/ZIP Co de Phone Number [facility] [address] [place] [address], [place] [phone] from Last 3 Months or Most Recently Relevant to Health Maintenance Insurance Care Teams Guzzler Builder Relationship Specialty Start Date End Date Alida Klein MD [address] [facility] [address] [place] [id number] PCP - General INTERNAL MEDICINE 03/23/24
--- OUTSIDE RECORDS SUMMARY | 2025-04-09 20:56 | XMS_ITS | Encounter Summary ---
Author Organization [facility] Address [facility] [place] [address] Care Team Providers Care Registered Nurse Maternal Child Name Role Phone Alida Klein MD Primary Care Provider [phone] Encounter Details Date Type Department Care Team (Late st Contact Info) Description 05/21/2024 MyChart Message Enc [facility] Medical Group Multispecialty Care - [place] [address] [place] [address] [address] [place], [place] [id number] Alida Klein MD [address] [place] [address] [address] [place] [address] STD test result Social History Tobacco Use [...] PM CDT 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 Gender Identity Female 03/25/2024 3:16 PM CDT Sexual Orientation Straight 03/25/2024 3: 16 PM CDT documented as of this encounter Plan of Treatment Upcoming Encounters Date Type Department Care Team (Late st Contact Info) Description 06/19/2025 7:00 AM CDT Office Visit [facility] Medical Group Multispecialty Care [place] [address] [address] [place] [address] Alida Klein MD [address] [place] [address] documented as of this encounter Visit Diagnoses Not on filedocumented in this encounter Additional Health Concerns Infection Onset Date Last Indicated Resolved Time COVID-19 Rule Out 09/30/2024 09/30/2024 09/30/2024 3:56 PM FIELD HAULER documented as of this encounter Care Teams Registered Nurse Maternal Child Relationship Specialty Start Date End Date Alida Klein MD [address] [place] [id number] PCP - General INTERNAL MEDICINE 03/23/24 documented as of this encounter
--- OUTSIDE RECORDS SUMMARY | 2025-04-09 20:56 | XMS_ITS | Encounter Summary ---
Author Organization [facility] Address [facility] [place] [address] Care Team Providers Care Class A Lineman Name Role Phone Alida Klein MD Primary Care Provider [phone] Encounter Details Date Type Department Care Team (Late st Contact Info) Description 05/18/2024 MyChart Message Enc [facility] Medical Group Multispecialty Care [place] [address] [place] [address] [address] [place] [address] Alida Klein MD [address] [place] [address] [address] [place] [address] Lab results 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 Sex Female 7:40 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 Gender Identity Female 03/25/2024 3:16 PM CDT Sexual Orientation Straight 03/25/2024 3: 16 PM CDT documented as of this encounter Plan of Treatment Upcoming Encounters Date Type Department Care Team (Late st Contact Info) Description 06/19/2025 7:00 AM CDT Office Visit [facility] Medical Group Multispecialty Care [place] [address] [address] [place] [address] Alida Klein MD [address] [place] [address] documented as of this encounter Visit Diagnoses Not on filedocumented in this encounter Additional Health Concerns Infection Onset Date Last Indicated Resolved Time COVID-19 Rule Out 09/30/2024 09/30/2024 09/30/2024 3:56 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 documented as of this encounter Care Teams Class A Lineman Relationship Specialty Start Date End Date Alida Klein MD [address] [place] [id number] PCP - General INTERNAL MEDICINE 03/23/24 documented as of this encounter
--- OUTSIDE RECORDS SUMMARY | 2025-04-09 20:56 | XMS_ITS | Encounter Summary ---
Author Organization [facility] Address [facility] [place] [address] Care Team Providers Care Portuguese Tutor Name Role Phone Alida Klein MD Primary Care Provider [phone] Encounter Details Date Type Department Care Team (Late st Contact Info) Description 05/20/2024 MyChart Message Enc [facility] Medical Group Multispecialty Care - [place] [address] [address] [place], [place] [phone] Alida Klein MD [address] [place] [address] [address] [place], [place] [id number] Lab results. 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 Gender Identity Female 03/25/2024 3:16 PM CDT Sexual Orientation Straight 03/25/2024 3: 16 PM CDT documented as of this encounter Plan of Treatment Upcoming Encounters Date Type Department Care Team (Late st Contact Info) Description 06/19/2025 7:00 AM CDT Office Visit [facility] Medical Group Multispecialty Care [place] [address] [address] [place] [address] Alida Klein MD [address] [place] [address] documented as of this encounter Visit Diagnoses Not on filedocumented in this encounter Additional Health Concerns Infection Onset Date Last Indicated Resolved Time COVID-19 Rule Out 09/30/2024 09/30/2024 09/30/2024 3:56 PM CLOTH PICKER documented as of this encounter Care Teams Portuguese Tutor Relationship Specialty Start Date End Date Alida Klein MD [address] [place] [id number] PCP - General INTERNAL MEDICINE 03/23/24 documented as of this encounter
--- OUTSIDE RECORDS SUMMARY | 2025-04-09 20:56 | XMS_ITS | Clinical Summary ---
Author Organization [facility] Care Team Providers Care Foxing Cutting Machine Operator Name Role Phone Unavailable Primary Care [...]
--- OUTSIDE RECORDS SUMMARY | 2025-04-09 20:56 | XMS_ITS | Encounter Summary ---
Author Organization 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 Gender Identity Female 03/25/2024 3:16 PM CDT Sexual Orientation Straight 03/25/2024 3: 16 PM CDT documented as of this encounter Plan of Treatment Upcoming Encounters Date Type Department Care Team (Late st Contact Info) Description 06/19/2025 7:00 AM CDT Office Visit [facility] Medical Group Multispecialty Care [place] [address] [address] [place] [address] Alida Klein MD [address] [address] documented as of this encounter Visit Diagnoses Not on filedocumented in this encounter Additional Health Concerns Infection Onset Date Last Indicated Resolved Time COVID-19 Rule Out 09/30/2024 09/30/2024 09/30/2024 3:56 PM GHOST WRITER documented as of this encounter Care Teams Shredder Tender Relationship Specialty Start Date End Date Alida Klein MD [address] [place] [id number] PCP - General INTERNAL MEDICINE 03/23/24 documented as of this encounter
--- OUTSIDE RECORDS SUMMARY | 2025-04-09 20:56 | XMS_ITS | Encounter Summary ---
Author Organization [facility] Address [facility] [place] [address] Care Team Providers Care Pinion Sorter Name Role Phone Alida Klein MD Primary Care Provider [phone] Encounter Details Date Type Department Care Team (Late st Contact Info) Description 10/19/2024 MyChart Message Enc [facility] Medical Group Multispecialty Care - [place] [address] [place] [address] [address] [place], [place] [phone] Alida Klein MD [address] [place] [address] [address] [place] [address] Jardiance Social History Tobacco Use Types Packs/Day [...] PM CDT 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 Gender Identity Female 03/25/2024 3:16 PM CDT Sexual Orientation Straight 03/25/2024 3: 16 PM CDT documented as of this encounter Plan of Treatment Upcoming Encounters Date Type Department Care Team (Late st Contact Info) Description 06/19/2025 7:00 AM CDT Office Visit [facility] Medical Group Multispecialty Care [place] [address] [address] [place], [place] [phone] Alida Klein MD [address] [place] [address] [phone] documented as of this encounter Visit Diagnoses Not on filedocumented in this encounter Care Teams Pinion Sorter Relationship Specialty Start Date End Date Alida Klein MD [address] [place] [address] [phone] PCP - General INTERNAL MEDICINE 03/23/24 documented as of this encounter
--- NOTE | 2025-04-09 21:45 | ED_ITS ---
HPI - Female Genitourinary General Chief complaint: Urogenital-Female Stated complaint: URINARY FREQ,URGENCY,HESITANCY Time Seen by Provider: 04/09/25 20:33 History of Present Illness HPI Narrative: 40-year-old female with no pertinent past medical history presenting to the emergency depart with left lower quadrant pain associated with hesitancy, urgency and some burning urination for last few days. No history of kidney stones with family history of kidney stones with her brother. No nausea, vomiting, abdominal pain, diarrhea, chest pain, shortness a breath. She states any time she goes to the bathroom she feels painful in her left flank going towards her left groin with some urgency and feeling like she needs to go more frequently but no blood or foul odor. No lesions or rashes. No trauma or injury. Denies chance of . Related Data Home Medications ?Medication ?Instructions ?Recorded ?Confirmed ?Last Taken ?Type aspirin 81 mg tablet,delayed 81 mg PO DAILY 05/06/20 11/14/24 11/13/24 History release (Adult Low Dose Aspirin) ergocalciferol (vitamin D2) 1,250 1,250 mcg PO WEEKLY 05/06/20 11/14/24 11/13/24 History mcg (50,000 unit) capsule (Vitamin D2) acyclovir 800 mg tablet mg 01/01/25 Unknown History oxybutynin chloride 10 mg mg PO 01/01/25 Unknown History tablet,extended release 24 hr sertraline 100 mg tablet 100 mg PO QHS 01/19/25 Unknown History Allergies Allergy/AdvReac Type Severity Reaction Status Date / Time Parker And Derivatives AdvReac Mild Nausea and Verified 04/09/25 18:33 Vomiting Review of Systems 2 Review of Systems: As reviewed above in HPI [facility] Past Medical History Medical History Interstitial cystitis Pulmonary stenosis Depression with anxiety GERD (gastroesophageal reflux disease) Hx of pulmonary artery stenosis Surgical History Surgical History Pulmonary valve replaced Hx of cholecystectomy Hx of mitral valve replacement Hx of tonsillectomy Family History Family History Father Diabetes mellitus Lung cancer Social History Social History Smoking status: Never smoker Alcohol intake: current Alcohol use details: VERY RARE Substance use: current Substance use type: marijuana Do You Feel Safe in your Home?: Yes Lack of Transportation: No Lack of Food: Sometimes True Current Housing: I Have Housing Concerned About Future Housing: No Difficulty Paying Gas/Electric Bills: YES Difficulty Paying for Meds: YES Currently Unemployed: No Education: High School Diploma/GED Living arrangements: with family Gender identity (if verbalized by the patient): Female Spiritual care concerns: No Exam 2 Narrative: GENERAL: [Well-appearing, well-nourished, and in no acute distress.] HEAD: [Normocephalic, atraumatic.] EYES: [PERRLA and EOMI.] ENT: Nares clear, no rhinorrhea or epistaxis. Mucous membranes moist. NECK: Supple. CHEST: [Clear to auscultation. No respiratory distress.] HEART: [Regular rate and rhythm]. No murmur heard. [Normal peripheral pulses.] ABDOMEN: [Soft, nondistended], left flank tenderness, [No rigidity or guarding] EXTREMITIES: Normal range of motion. [No edema.] SKIN: Warm, dry, no rash. NEURO: [No focal deficits]. Alert and oriented [x3.] PSYCH: [Normal mood and affect.] Course Vital Signs Vital signs: Vital Signs Temperature 36.4 C L 04/09/25 18:43 Pulse Rate 86 04/09/25 18:43 Respiratory Rate 16 04/09/25 18:43 Blood Pressure 103/49 L 04/09/25 18:43 Pulse Oximetry 98 04/09/25 18:43 Oxygen Delivery Room Air 04/09/25 18:43 Temperature 36.4 C L 04/09/25 18:43 Pulse Rate 63 04/10/25 00:59 Respiratory Rate 17 04/10/25 00:59 Blood Pressure 124/78 04/10/25 00:59 Pulse Oximetry 98 04/10/25 00:59 Oxygen Delivery Room Air 04/09/25 18:43 MDM - Female Genitourinary MDM Narrative Medical decision making narrative: 40-year-old female with no pertinent past medical history presenting to the emergency depart with left lower quadrant pain associated with hesitancy, urgency and some burning urination for last few days. No history of kidney stones with family history of kidney stones with her brother. No nausea, vomiting, abdominal pain, diarrhea, chest pain, shortness a breath. She states any time she goes to the bathroom she feels painful in her left flank going towards her left groin with some urgency and feeling like she needs to go more frequently but no blood or foul odor. No lesions or rashes. No trauma or injury. Denies chance of . Patient's physical exam is reassuring with normal vital signs with any fever, hypoxia, tachycardia or blood pressure concerns. She has some tenderness in the left flank. Urinalysis was obtained that does not show any signs of urinary infection. Suspicion presently is for kidney stone or nephrolithiasis, ureterolithiasis. Less likely GI pathology. CT scan without contrast was obtained as well as blood work. She was given Toradol and fluids and re- evaluated. Patient had interval improvement in pain control. CT scan was independently reviewed and I do appreciate a large left-sided ovarian cyst and no appreciable obstructing kidney stones. Stat read read with left ovarian cyst measuring 3.8 x 3.4 cm recommending ultrasound for further evaluation. No hydronephrosis or obstructive uropathy. Nonobstructing renal stones in the right lower pole 5 mm. Ultrasound was ordered and also independently reviewed. Ultrasound finding shows a simple 3.7 cm left ovarian cyst with no torsion of the left ovary. Recommendations are for follow-up in 6-12 weeks to ensure resolution. Nonvisualized right ovary which is surgically absent according to patient's history. I discussed these findings with the patient and given her pain resolution and stable vital signs and lab she can follow-up on outpatient basis with OBGYN. She was also given our OBGYN referral as a 2nd contact in addition to her own personal 1. Patient felt comfortable with the plan and safely discharged and given strict return precautions. Medical Records Attestation: I reviewed the patient's medical records. Lab Data Attestation: I reviewed the patient's lab results. 04/09/25 21:53 04/09/25 21:53 Labs: Lab Results 04/09/25 04/09/25 Range/Units 20:04 21:53 WBC 6.3 (4.5-10.0) K/mm3 RBC 4.16 L (4.2-5.4) M/mm3 Hgb 12.6 (12.0-15.0) g/dL Hct 38.3 (37.0-47.0) % MCV 92.1 (80-100) fl MCH 30.3 (26-34) pg MCHC 32.9 (32-36) g/dl RDW 11.9 (11.5-14.5) % Plt Count 204 (150-375) k/mm3 MPV 9.4 (7.4-10.4) fl Immature Gran % (Auto) 0.5 (0-0.5) % Neut % (Auto) 43.0 L (45.5-73.1) % Lymph % (Auto) 45.9 H (18.3-44.2) % Schley % (Auto) 8.4 (2.6-8.5) % Eos % (Auto) 1.4 (0-4.4) % Baso % (Auto) 0.8 (0.2-1.2) % Lymph # (Auto) 2.91 (0.9-3.2) K/mm3 Schley # (Auto) 0.5 (0.1-0.6) K/mm3 Eos # (Auto) 0.1 (0-0.3) K/mm3 Baso # (Auto) 0.1 (0.0-0.1) K/mm3 Abs Immat Gran (auto) 0.03 (0.00-0.031) K/mm3 Absolute Neuts (auto) 2.7 (1.3-6.7) K/mm3 Absolute Nucleated RBC 0.000 (0.0-0.012) K/mm3 Nucleated RBC % 0.0 (0.0-0.2) % Sodium 138 (137-145) mmol/L Potassium 3.7 (3.4-5.0) mmol/L Chloride 107 (98-107) mmol/L Carbon Dioxide 24 (22-30) mmol/L Anion Gap 7 (4-12) mmol/L BUN 17 (7-17) mg/dL Creatinine 0.63 L (0.7-1.0) mg/dL Estim Creat Clear Calc 107 ml/min Estimated GFR > 60 (59 - ) Glucose 81 (65-110) mg/dL Calcium 8.8 (8.4-10.2) mg/dL Magnesium 2.1 (1.6-2.3) mg/dL Total Bilirubin 0.2 (0.2-1.3) mg/dL AST 26 (14-36) U/L ALT 19 (6-35) U/L Alkaline Phosphatase 37 L (38-126) U/L Total Protein 6.6 (6.3-8.2) g/dL Albumin 3.9 (3.5-5.1) g/dL Urine Color Yellow (Yellow) Urine Appearance Cloudy H (Clear) Urine pH 7.0 (5.0-9.0) Ur Specific [place] 1.028 (1.001-1.035) Urine Protein Negative (Negative) mg/dL Urine Glucose (UA) Negative (Negative) mg/dL Urine Ketones Trace H (Negative) mg/dL Ur Blood (Man) Negative (Negative) Urine Nitrate Negative (Negative) Urine Bilirubin Negative (Negative) Urine Urobilinogen 0.2 (<2.0) mg/dL Leukocyte Esterase Rfl Negative (Negative) CHKAA/UL Urine RBC 0-2 (0-2) /hpf Urine WBC 0-5 (0-3) /hpf Ur Squamous Epith Cells Occasional (Few) /hpf Urine Bacteria None seen /hpf Urine Casts 0-2 Imaging Data Attestation: I personally reviewed and interpreted this imaging study as follows: My impression: CT scan was independently reviewed and I do appreciate a large left-sided ovarian cyst and no appreciable obstructing kidney stones. Stat read read with left ovarian cyst measuring 3.8 x 3.4 cm recommending ultrasound for further evaluation. No hydronephrosis or obstructive uropathy. Nonobstructing renal stones in the right lower pole 5 mm. Ultrasound was ordered and also independently reviewed. Ultrasound finding shows a simple 3.7 cm left ovarian cyst with no torsion of the left ovary. Recommendations are for follow-up in 6- 12 weeks to ensure resolution. Nonvisualized right ovary which is surgically absent Discharge Plan Discharge Clinical Impression: Cyst of left ovary, Abdominal pain, acute, left lower quadrant, Dysuria Patient Disposition: Home Condition: Stable Instructions: Antibiotic Form, Ovarian Cyst (ED), Ovarian Cyst Removal (DC) Additional Instructions: There is a 3.7 cm ovarian cyst in the left side consistent with your area of pain and can be causing symptoms secondary to pushing on your urinary system. No signs of urinary tract infection, your laboratory studies are otherwise reassuring. Follow-up recommendations are for repeat ultrasound with OBGYN in approximately 6-12 weeks but he should contact OBGYN for close outpatient follow-up from the ER. Take Tylenol or ibuprofen for aches and pains. Return if you experience significantly worsening pain or new symptoms. Patient Language: Turkish Prescriptions: No Action aspirin [Adult Low Dose Aspirin] 81 mg Tablet,Delayed Release (Dr/Ec) 81 mg PO DAILY ergocalciferol (vitamin D2) [Vitamin D2] 1,250 mcg (50,000 unit) Capsule 1,250 mcg PO WEEKLY Patient Comments: PT TAKES ON THURSDAY oxybutynin chloride 10 mg tablet extended release 24hr PO acyclovir 800 mg tablet sertraline 100 mg tablet 100 mg PO QHS famotidine [Pepcid] 20 mg tablet 20 mg PO BID Qty: 20 0RF ondansetron 4 mg tablet,disintegrating 4 mg PO Q8H PRN (Reason: nausea and vomiting) Qty: 10 0RF Follow-up/Referrals: Latoya,MD Alida [Primary Care Provider] - Nash Serrano MD [Physician] - 1 Week (Ovarian Cyst) Time of Disposition: 03:48
[2025-04-09] MEDS: KETOROLAC 30 MG/ML VIAL (*BKC) IV PUSH (21:53)
[2025-04-09] MEDS: SODIUM CHLORIDE 0.9% IV 1,000 ML 999 ML IV CONT (21:54)
[2025-04-09 21:59] VITALS: PULSE 61; RESP 17; O2SAT 100
[2025-04-09 22:03] LABS: Hematocrit 38.3 % (37.0-47.0); Hemoglobin 12.6 g/dL (12.0-15.0); Immature Granulocyte Percent A 0.5 % (0-0.5); Lymphocytes Absolute Auto 2.91 K/mm3 (0.9-3.2); Mean Corpuscular HGB Conc 32.9 g/dl (32-36); Mean Corpuscular Hemoglobin 30.3 pg (26-34); Mean Corpuscular Volume 92.1 fl (80-100); Nucleated Red Blood Cells Absolute Auto 0.000 K/mm3 (0.0-0.012); Nucleated Red Blood Cells Perc 0.0 % (0.0-0.2); Platelet Count Result 204 k/mm3 (150-375); Red Blood Count 4.16 M/mm3 (4.2-5.4); White Blood Count 6.3 K/mm3 (4.5-10.0)
[2025-04-09 22:19] LABS: Alanine Aminotransferase 19 U/L (6-35); Albumin Level 3.9 g/dL (3.5-5.1); Alkaline Phosphatase 37 U/L (38-126); Anion Gap 7 mmol/L (4-12); Aspartate Amino Transferase 26 U/L (14-36); Bilirubin,Total 0.2 mg/dL (0.2-1.3); Blood Urea Nitrogen 17 mg/dL (7-17); Calcium 8.8 mg/dL (8.4-10.2); Carbon Dioxide 24 mmol/L (22-30); Chloride 107 mmol/L (98-107); Estimated CRCL calculation 107 ml/min; Estimated Glomerular Filt Rate > 60; Glucose 81 mg/dL (65-110); Magnesium 2.1 mg/dL (1.6-2.3); Potassium 3.7 mmol/L (3.4-5.0); Sodium 138 mmol/L (137-145); Total Protein 6.6 g/dL (6.3-8.2)
[2025-04-10 00:59] VITALS: BP 124/78; PULSE 63; RESP 17; O2SAT 98
== END 2025-04-10 04:20 | disposition home or self-care (01) ==
PROVIDERS: Emergency Provider Student in an Organized Health Care Education/Training Program; PCP Internal Medicine
DX: N83.202 Unspecified ovarian cyst, left side (principal); R30.0 Dysuria; N30.10 Interstitial cystitis (chronic) without hematuria; K21.9 Gastro-esophageal reflux disease without esophagitis; F41.8 Other specified anxiety disorders; Z95.2 Presence of prosthetic heart valve; Z90.49 Acquired absence of other specified parts of digestive tract; N20.0 Calculus of kidney; Z79.82 Long term (current) use of aspirin; Z79.899 Other long term (current) drug therapy
CPT/HCPCS: 36415; 74176; 76830; 76856; 80053; 81001; 83735; 85025; 96361; 96374; 99284; J1885; J7030

== ENCOUNTER 2025-05-01 12:26 | Outpatient (CLI) | payer OTHER, SELFPAY ==
--- NOTE | ~2025-05-01 | MMUS_ITS ---
EXAMINATION: US breast LT limited, MM diagnostic sanjeev LT w kristy HISTORY: Follow-up left breast mass TECHNIQUE: Additional 3-D tomosynthesis images of the left breast were performed and synthetic 2-D im ages were generated. CAD analysis was submitted and interpreted. High resolution Limited left breast ultrasound was performed. COMPARISON: Comparison to multiple prior studies sequentially, with oldest reviewed study dated 11/01. BREAST PARENCHYMAL COMPOSITION: Not dense: There are scattered areas of fibroglandular density. FINDINGS: MAMMOGRAPHIC FINDINGS: Stable asymmetry in the upper outer quadrant of the left breast. There are no suspicious calcificatio ns or architectural distortion. ULTRASOUND: Limited left breast ultrasound: Stable appearance to heterogeneous area at 1-2:00, 7 cm from the nipp le without discrete mass. At 12:00, 3 cm from the nipple there is an oval parallel oriented hypoechoi c mass measuring 5 mm without internal vascularity or posterior features. IMPRESSION: 1. Stable likely benign left breast findings. 2. Recommend 6 month follow-up Limited left breast ultrasound and bilateral mammogram BI-RADS category 3, probably benign findings. Reviewed, dictated and finalized at location A. IMPRESSION: 1. Stable likely benign left breast findings. 2. Recommend 6 month follow-up Limited [facility] breast [facility], probably benign findings. IMPRESSION: 1. Stable likely benign left breast findings. 2. Recommend 6 month follow-up Limited left breast ultrasound and bilateral [facility] mogram BI-RADS category 3, probably benign findings.
--- OUTSIDE RECORDS SUMMARY | 2025-05-01 12:30 | XMS_ITS | Encounter Summary ---
Author Organization [facility] Address [facility] [place] [address] Care Team Providers Care Admissions Coordinator Name Role Phone Alida Klein MD Primary Care Provider [phone] Encounter Details Date Type Department Care Team (Late st Contact Info) Description 05/21/2024 MyChart Message Enc [facility] Mult[facility] - [place] [address] [place] [address] [address] [place], [place] [id number] Alida Klein MD [address] [place] [address] [address] [place] [address] STD test result Social History Tobacco Use [...] PM CDT Legal Sex Female 7:40 PM SURGICAL PATHOLOGIST Gender Identity Female 03/25/2024 3:16 PM CDT Sexual Orientation Straight 03/25/2024 3: 16 PM CDT documented as of this encounter Plan of Treatment Upcoming Encounters Date Type Department Care Team (Late st Contact Info) Description 06/19/2025 7:00 AM CDT Office Visit [facility] Multispecialty Care - [place] [address] [address] [place] [address] Alida Klein MD [address] [place] [address] documented as of this encounter Visit Diagnoses Not on filedocumented in this encounter Additional Health Concerns Infection Onset Date Last Indicated Resolved Time COVID-19 Rule Out 09/30/2024 09/30/2024 09/30/2024 3:56 PM SURGICAL PATHOLOGIST documented as of this encounter Care Teams Admissions Coordinator Relationship Specialty Start Date End Date Alida Klein MD [address] [place] [address] PCP - General INTERNAL MEDICINE 03/23/24 documented as of this encounter
--- OUTSIDE RECORDS SUMMARY | 2025-05-01 12:30 | XMS_ITS | Clinical Summary ---
Author Organization [facility] Address [address] [place] [address] Care Team Providers Care Insurance Agent Name Role Phone Alida Klein MD Primary Care Provider [phone] Allergies No known active allergies Medications acyclovir (ZOVIRAX) 800 MG tablet Take 1 tablet (800 mg total) by mouth daily. 03/09/2024 Active vitamin D2, ergocalciferol, (DRISDOL) 1.25 mg capsule Take 1 capsule (1.25 mg total) by mouth once a week. 03/12/2024 Active sertraline (ZOLOFT) 50 MG tablet Take 1.5 tablets (75 mg total) by mouth daily. Active ASPIRIN 81 OR Take 81 mg by mouth. Active ondansetron (ZOFRAN) 4 MG tabletIndicatio ns:Type 2 diabetes mellitus with hyperglycemia, without long-term current use of insulin ([facility]/HCC HHS/HCC) TAKE 1 TABLET BY MOUTH EVERY 8 HOURS NEEDED 90 tablet 08/01/2024 Active oxybutynin XL (DITROPAN-XL) 10 MG 24 hr tablet Take 1 tablet (10 mg total) by mouth daily. 09/10/2024 Active semaglutide (OZEMPIC) 2 MG/3ML injection (PEN)Indication s:Diabetes Mellitus Inject 0.25 mg into the skin every 7 days. Indications: Diabetes 9 mL 03/14/2025 Active Active Problems Problem Noted Date Diagnosed Date [...] hyperglycemia, without long-term current use of insulin ([facility]) 12/21/2020 Nonrheumatic pulmonary valve stenosis 12/14/2018 Encounters Date Type Department Care Team Description 04/09/2025 Scan [facility] SRVCS Scanned, Doc Med Group 03/14/2025 8:00 AM CDT [facility] [place] [address] [place] [address] Alida Klein MD Follow Up; Weight Problem; Diabetes 03/14/2025 Travel 02/22/2025 Scan [facility] INFO SRVCS Scanned, Doc Med Group MRI (SCAN) 01/30/2025 [facility] 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 Gender Identity Female 03/25/2024 3:16 PM CDT [...] Description 06/19/2025 7:00 AM CDT Office Visit [facility] Multispecialty Care - [place] [address] [address] [place] [address] Alida Klein MD [address] [place] [address] Health Maintenance Due Date Last Done Comments Kidney Health Evaluation 1985 Diabetes: Retinopathy Eye Exam 2003 Hepatitis B Vaccines (1 of 3 - 19+ 3-dose series) 2004 HPV Vaccines (1 - 3-dose SCDM series) 2012 COVID-19 Vaccine ( season) 2024 07/13/2021, 12/29/2020, 12/02/2020 PHQ-2 (Physician [place]) 09/21/2024 03/23/2024 Hemoglobin A1C 03/13/2025 09/12/2024, 07/0 01/2024, 01/01/2023, Additional history exists Annual Physical 03/23/2025 03/23/2024 Lipid Panel 03/25/2025 03/25/2024 Mammogram Screening 11/01/2026 11/01/2024 DTaP, Tdap and Td Vaccines (3 - Td or Tdap) 02/19/2034 02/20/2024, 11/10/2020 Hepatitis C Completed 03/25/2024 Pneumococcal Vaccine: Pediatrics (0 to 5 Years) and At-Risk Patients (6 to 49 Years) Completed 05/18/2024 Meningococcal B Vaccine Aged Out No l onger eligible based on patient's age to complete this topic Meningococcal Vaccine Aged Out No vannessa gabrielle eligible based on patient's age to complete this topic RSV Immunizations Under 20 Months Aged Out No longer eligible based on patient's age to complete this topic Procedures Procedure Name Priority Date/Time Associated Diagnosis Comments MRI GENERIC 02/22/2025 MAMMOGRAM GENERIC (SCAN ORDER) 11/01/2024 HEMOGLOBIN, GLYCOSYLATED Routine 09/12/2024 4:42 PM WATER SOFTENER SERVICER Type 2 diabetes mellitus with hyperglycemia, without long-term current use of insulin ([facility]) HEPATITIS C ANTIBODY Routine 03/25/2024 8:46 AM [...] (02/22/2025) Anatomical Region Laterality Modality Other 02/22/2025 [facility] Scanned SCANNING Final Resu lt * MAMMOGRAM GENERIC (SCAN ORDER) (11/01/2024) Anatomical Region Laterality Modality Other 11/01/2024 [facility] Scanned SCANNING Final Resu lt * (ABNORMAL) HEMOGLOBIN, GLYCOSYLATED (09/12/2024 4:42 PM WATER SOFTENER SERVICER) HGB A1C 5.4 4.5 - 6.2 % 09/12/2024 8:05 PM WATER SOFTENER SERVICER [facility] ESTIMATED AVG GLUCOSE 108(H) 74 - 106 MG/DL 09/12/2024 8:05 PM WATER SOFTENER SERVICER [facility] 09/12/2024 4:42 PM WATER SOFTENER SERVICER Alida Klein MD LABORATORY Final Result [facility] [address] [place] [address], * (ABNORMAL) LIPID PANEL (03/25/2024 8:46 AM CDT) CHOLESTEROL 178 <200 MG/DL 03/25/2024 2:39 PM CDT [facility] TRIGLYCERIDES 96 <150 MG/DL 03/25/2024 2:39 PM CDT [facility] HDL 52 >40 MG/DL 03/25/2024 2:39 PM CDT [facility] LDL-C 107(H) <100 MG/DL 03/25/2024 2:39 PM CDT [facility] VLDL CALCULATION 19 5 - 28 MG/DL 03/25/2024 2:39 PM CDT [facility] CHOL/HDL RATIO 3.4 0.0 - 4.0 03/25/2024 2:39 PM CDT [facility] LDL/HDL 2.1 0.41 - 2.13 03/25/2024 2:39 PM CDT [facility] NON HDL CHOLESTEROL 126 <140 MG/DL 03/25/2024 2:39 PM CDT [facility] 03/25/2024 8:46 AM CDT Alida Klein MD LABORATORY Final Result Performing Organization Address City/[facility]/ZIP Co de Phone Number [facility] [address] [place] [address], [place] [phone] * HEPATITIS C ANTIBODY (03/25/2024 8:46 AM CDT) HEPATITIS C AB NON-REACTI VE NON-REACT ANTOINETTE 03/25/2024 6:23 PM CDT [facility] Comment: ANTIBODIES TO HCV NOT DETECTED. DOES NOT EXCLUDE THE POSSIBILITY OF EXPOSURE TO HCV. 03/25/2024 8:46 AM CDT Alida Klein MD LABORATORY Final Result [facility] [address] [place] [address], [place] [phone] from Last 3 Months or Most Recently Relevant to Health Maintenance Insurance Care Teams Insurance Agent Relationship Specialty Start Date End Date Alida Klein MD [address] [facility] [address] [place] [id number] PCP - General INTERNAL MEDICINE 03/23/24
--- OUTSIDE RECORDS SUMMARY | 2025-05-01 12:30 | XMS_ITS | Encounter Summary ---
Author Organization [facility] Address [facility] [place] [address] Care Team Providers Care Ship Unloader Name Role Phone Alida Klein MD Primary Care Provider [phone] Encounter Details Date Type Department Care Team (Late st Contact Info) Description 05/20/2024 MyChart Message Enc [facility] Medical [facility] Multispecialty Care - [place] [address] [address] [place], [place] [phone] Alida Klein MD [address] [place] [address] [address] [place], [place] [phone] Lab results. 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 Sex Female 7:40 PM PUBLIC RELATIONS COUNSELOR Gender Identity Female 03/25/2024 3:16 PM CDT Sexual Orientation Straight 03/25/2024 3: 16 PM CDT documented as of this encounter Plan of Treatment Upcoming Encounters Date Type Department Care Team (Late st Contact Info) Description 06/19/2025 7:00 AM CDT Office Visit [facility] Multispecialty Care - [place] [address] [address] [place] [address] Alida Klein MD [address] [place] [id number] documented as of this encounter Visit Diagnoses Not on filedocumented in this encounter Additional Health Concerns Infection Onset Date Last Indicated Resolved Time COVID-19 Rule Out 09/30/2024 09/30/2024 09/30/2024 3:56 PM PUBLIC RELATIONS COUNSELOR documented as of this encounter Care Teams Ship Unloader Relationship Specialty Start Date End Date Alida Klein MD [address] [place] [id number] PCP - General INTERNAL MEDICINE 03/23/24 documented as of this encounter
--- OUTSIDE RECORDS SUMMARY | 2025-05-01 12:30 | XMS_ITS | Clinical Summary ---
Author Organization [facility] Care Team Providers Care Injection Molding Supervisor Name Role Phone Unavailable Primary Care Provider [...] 19+ 3-dose series) 2004 Pap Smear 2006 Human Papillomavirus (HPV) Immunization (1 - 3-dose SCDM series) 2012 Cervical Cancer Screening (CCS) 2015 HPV/Cotest 2015 SARS-COV-2 Immunization ( season) 2024 12/29/2020, 12/02/2020 Influenza Immunization (#1) 2025 10/0 09/2019, 06/08/2019, 06/15/2018, Additional history exists Respiratory Syncytial Virus (RSV) Immunization (Adult) (1 [...]
--- OUTSIDE RECORDS SUMMARY | 2025-05-01 12:30 | XMS_ITS | Encounter Summary ---
Author Organization [facility] Address [facility] [place] [address] Care Team Providers Care Mortgage Loan Coordinator Name Role Phone Alida Klein MD Primary Care Provider [phone] Encounter Details Date Type Department Care Team (Late st Contact Info) Description 10/19/2024 MyChart Message Enc [facility] Multispecialty Care - [place] [address] [place] [address] [address] [place], [place] [phone] Alida Klein MD [address] [place] [address] [address] [place] [address] Jardiance Social History Tobacco Use Types Packs/Day [...] PM CDT Legal Sex Female 7:40 PM CONVERSION MAN Gender Identity Female 03/25/2024 3:16 PM CDT Sexual Orientation Straight 03/25/2024 3: 16 PM CDT documented as of this encounter Plan of Treatment Upcoming Encounters Date Type Department Care Team (Late st Contact Info) Description 06/19/2025 7:00 AM CDT Office Visit [facility] Medical [facility] Multispecialty Care - [place] [address] [address] [place], [place] [phone] Alida Klein MD [address] [place] [phone] documented as of this encounter Visit Diagnoses Not on filedocumented in this encounter Care Teams Mortgage Loan Coordinator Relationship Specialty Start Date End Date Alida Klein MD [address] [place] [phone] PCP - General INTERNAL MEDICINE 03/23/24 documented as of this encounter
--- OUTSIDE RECORDS SUMMARY | 2025-05-01 12:30 | XMS_ITS | Encounter Summary ---
Author Organization [facility] Address [facility] [place] [address] Care Team Providers Care Real Estate Sales Agent Name Role Phone Alida Klein MD Primary Care Provider [phone] Encounter Details Date Type Department Care Team (Late st Contact Info) Description 05/18/2024 MyChart Message Enc [facility] Medical Group Multispecialty Care - [place] [address] [place] [address] [address] [place] [address] Alida Klein MD [address] [place] [address] [address] [place] [address] Lab results 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 Sex Female 7:40 PM ENVIRONMENTAL SCIENCE TECHNICIAN Gender Identity Female 03/25/2024 3:16 PM CDT Sexual Orientation Straight 03/25/2024 3: 16 PM CDT documented as of this encounter Plan of Treatment Upcoming Encounters Date Type Department Care Team (Late st Contact Info) Description 06/19/2025 7:00 AM CDT Office Visit [facility] Medical Group Multispecialty Care [place] [address] [address] [place] [address] Alida Klein MD [address] [place] [address] documented as of this encounter Visit Diagnoses Not on filedocumented in this encounter Additional Health Concerns Infection Onset Date Last Indicated Resolved Time COVID-19 Rule Out 09/30/2024 09/30/2024 09/30/2024 3:56 PM ENVIRONMENTAL SCIENCE TECHNICIAN documented as of this encounter Care Teams Real Estate Sales Agent Relationship Specialty Start Date End Date Alida Klein MD [address] [place] [address] PCP - General INTERNAL MEDICINE 03/23/24 documented as of this encounter
--- OUTSIDE RECORDS SUMMARY | 2025-05-01 12:30 | XMS_ITS | Encounter Summary ---
Author Organization [facility] Address [facility] [place] [address] Care Team Providers Care Wet Process Miller Head Name Role Phone Alida Klein MD Primary Care Provider [phone] Encounter Details Date Type Department Care Team (Late st Contact Info) Description 05/04/2024 MyChart Message Enc [facility] Medical Group Multispecialty Care [facility] [address] [place] [address] [address] [place] [address] Alida Klein MD [address] [place] [address] [address] [place] [address] Ramón Social History Tobacco Use Types Packs/Day [...] PM CDT 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 Sex 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 Gender Identity Female 03/25/2024 3:16 PM CDT Sexual Orientation Straight 03/25/2024 3: 16 PM CDT documented as of this encounter Plan of Treatment Upcoming Encounters Date Type Department Care Team (Late st Contact Info) Description 06/19/2025 7:00 AM CDT Office Visit [facility] Medical Group Multispecialty Care [place] [address] [address] [place] [address] Alida Klein MD [address] [address] documented as of this encounter Visit Diagnoses Not on filedocumented in this encounter Additional Health Concerns Infection Onset Date Last Indicated Resolved Time COVID-19 Rule Out 09/30/2024 09/30/2024 09/30/2024 3:56 PM KIDS CLUB ATTENDANT documented as of this encounter Care Teams Wet Process Miller Head Relationship Specialty Start Date End Date Alida Klein MD [address] [place] [address] PCP - General INTERNAL MEDICINE 03/23/24 documented as of this encounter
== END 2025-05-01 12:27 | disposition home or self-care (01) ==
PROVIDERS: PCP Internal Medicine; Visit Provider Obstetrics & Gynecology
DX: N63.21 Unspecified lump in the left breast, upper outer quadrant (principal)
CPT/HCPCS: 76642; 77061; 77065; G0279

== ENCOUNTER 2025-06-13 11:27 | Emergency (ER) | payer OTHER, SELFPAY ==
--- NOTE | ~2025-06-13 | US_ITS ---
Clinical history:Left lower quadrant pain. Possible ovarian torsion. History of hysterectomy and right oophorectomy in 2023. EXAM:Ultrasound pelvis complete with transvaginal TECHNIQUE:Multiple static grayscale images and color Doppler images were obtained of the pelvis. Transabdominal and transpelvic images Comparisons:04/10/2025 FINDINGS: Uterus and right ovary have been surgically removed. Left ovary measures 3.4 x 2.0 x 1.8 cm. There is vascular flow to the right ovary. There are follicular changes in the right ovary. There is a 1.4 x 0.7 x 1.0 cm possible hemorrhagic ovarian cyst in the left ovary. IMPRESSION: 1.There is a 1.4 x 0.7 x 1.0 cm possible hemorrhagic ovarian cyst in the left ovary. The finding is new as compared to the study from 04/10/2025. A short-term follow-up pelvic ultrasound in 2-4 weeks is recommended to assess for interval clearance. 2. Hysterectomy and right oophorectomy in 2023 If symptoms persist or worsen, consider a short-term follow-up study or additional imaging for further assessment. Reviewed, dictated and finalized at location Q. IMPRESSION: 1.There is a 1.4 x 0.7 x 1.0 cm possible hemorrhagic ovarian cyst in the left o vary. The finding is new as compared to the study from 04/10/2025. A short-term follow-up pelvic ultrasound in 2-4 weeks is recommended to assess for interval clearance. 2. Hysterectomy and right oophorectomy in 2023 If symptoms persist or worsen, consider a short-term follow-up study or additio nal imaging for further assessment.
[2025-06-13 11:36] VITALS: BP 134/94; PULSE 86; RESP 16; TEMP 36.4; O2SAT 98
[2025-06-13 12:04] LABS: Hematocrit 41.7 % (37.0-47.0); Hemoglobin 14.1 g/dL (12.0-15.0); Immature Granulocyte Percent A 0.4 % (0-0.5); Lymphocytes Absolute Auto 1.25 K/mm3 (0.9-3.2); Mean Corpuscular HGB Conc 33.8 g/dl (32-36); Mean Corpuscular Hemoglobin 30.7 pg (26-34); Mean Corpuscular Volume 90.7 fl (80-100); Nucleated Red Blood Cells Absolute Auto 0.000 K/mm3 (0.0-0.012); Nucleated Red Blood Cells Perc 0.0 % (0.0-0.2); Platelet Count Result 242 k/mm3 (150-375); Red Blood Count 4.60 M/mm3 (4.2-5.4); White Blood Count 7.4 K/mm3 (4.5-10.0)
[2025-06-13 12:06] LABS: Add Urine Microscopic? NO; Appearance Urine Clear (Clear); Glucose Urine UA Negative (Negative); Leukocyte Esterase Ur Negative LEU/UL (Negative); Nitrate Urine Negative (Negative); Specific Grav Ur 1.023 (1.001-1.035)
--- OUTSIDE RECORDS SUMMARY | 2025-06-13 12:10 | XMS_ITS | Clinical Summary ---
Author Organization [facility] Address [address] [place] [address] Care Team Providers Care Materials Intern Name Role Phone Alida Klein MD Primary Care Provider [phone] Allergies No known active allergies Medications acyclovir [...] hyperglycemia, without long-term current use of insulin ([facility]/HCC HHS/HCC) TAKE 1 TABLET BY MOUTH EVERY 8 HOURS NEEDED 90 tablet 08/01/2024 Active oxybutynin XL (DITROPAN-XL) 10 MG 24 hr tablet Take 1 tablet (10 mg total) by mouth daily. 09/10/2024 Active semaglutide (OZEMPIC) 2 MG/3ML injection (PEN)Indication s:Diabetes Mellitus Inject 0.25 mg into the skin every 7 days. Indications: Diabetes 9 mL 03/14/2025 Active scopolamine (TRANSDERM-SCOP ) 1 MG/3DAYS patchIndication s:Nausea Place 1 patch onto the skin every third day. Do not touch your eyes when you place the patch behind the ear. 5 patch 06/07/2025 Active Active Problems Problem Noted Date Diagnosed [...] hyperglycemia, without long-term current use of insulin ([facility]) 12/21/2020 Nonrheumatic pulmonary valve stenosis 12/14/2018 Encounters Date Type Department Care Team Description 06/07/[address] [facility] [address] [facility] [address] [place] [address] Alida Klein MD Medication Request 06/06/[address] [facility] [address] [facility] [address] [place] [address] Alida Klein MD Nausea 06/05/[address] [facility] [address] [facility] [address] [place] [address] Alida Klein MD Medication Information 05/01/2025 Scan [facility] Scanned, Doc Med Group Mammogram (SCAN); Ultrasound (SCAN) 04/09/2025 Scan [facility] Scanned, Doc Med Group 03/14/2025 8:00 AM CDT Office Visit [place] [address] 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 OPERATOR Gender Identity Female 03/25/2024 3:16 PM [...] Description 06/19/2025 7:00 AM CDT Office Visit [facility] Medical Group Multispecialty Care - [place] [address] [address] [place] [address] Alida Klein MD [address] [facility] [address] [place] [address] Health Maintenance Due Date Last Done Comments Kidney Health Evaluation 1985 Diabetes: Retinopathy Eye Exam 2003 Hepatitis B Vaccines (1 of 3 - 19+ 3-dose series) 2004 HPV Vaccines (1 - 3-dose SCDM series) 2012 PHQ-2 (Physician [place]) 09/21/2024 03/23/2024 Hemoglobin A1C 03/13/2025 09/12/2024, 07/0 01/2024, 01/01/2023, Additional history exists Annual Physical 03/23/2025 03/23/2024 Lipid Panel 03/25/2025 03/25/2024 COVID-19 Vaccine ( season) 2025 07/13/2021, 12/29/2020, 12/02/2020 Mammogram Screening 05/01/2027 05/01/2025, DTaP, Tdap and Td Vaccines (3 - [...] Associated Diagnosis Comments MAMMOGRAM GENERIC (SCAN ORDER) 05/01/2025 ULTRASOUND GENERIC (SCAN ORDER) 05/01/2025 HEMOGLOBIN, GLYCOSYLATED Routine 09/12/2024 4:42 PM CIRCULAR SHEAR OPERATOR Type 2 diabetes mellitus with hyperglycemia, without [...] Maintenance Results * MAMMOGRAM GENERIC (SCAN ORDER) (05/01/2025) Anatomical Region Laterality Modality Other 05/01/2025 us Doc [facility] Group Scanned SCANNING Final Resu lt * ULTRASOUND GENERIC (SCAN ORDER) (05/01/2025) Anatomical Region Laterality Modality Other 05/01/2025 [facility] Scanned SCANNING Final Resu lt * (ABNORMAL) HEMOGLOBIN, GLYCOSYLATED (09/12/2024 4:42 PM CIRCULAR SHEAR OPERATOR) Pathologist [facility] HGB A1C 5.4 4.5 - 6.2 % 09/12/2024 8:05 PM CIRCULAR SHEAR OPERATOR [facility] ESTIMATED AVG GLUCOSE 108(H) 74 - 106 MG/DL 09/12/2024 8:05 PM CIRCULAR SHEAR OPERATOR [facility] 09/12/2024 4:42 PM CIRCULAR SHEAR OPERATOR Alida Klein MD LABORATORY Final Result [facility] [address] [place] [address], [place] [phone] * (ABNORMAL) LIPID PANEL (03/25/2024 8:46 AM CDT) Pathologist [facility] CHOLESTEROL 178 <200 MG/DL 03/25/2024 2:39 PM CDT [facility] TRIGLYCERIDES 96 <150 MG/DL 03/25/2024 2:39 PM CDT [facility] HDL 52 >40 MG/DL 03/25/2024 2:39 PM CDT [facility] LDL-C 107(H) <100 MG/DL 03/25/2024 2:39 PM CDT [facility] VLDL CALCULATION 19 5 - 28 MG/DL 03/25/2024 2:39 PM CDT [facility] CHOL/HDL RATIO 3.4 0.0 - 4.0 03/25/2024 2:39 PM CDT [facility] LDL/HDL 2.1 0.41 - 2.13 03/25/2024 2:39 PM CDT [facility] NON HDL CHOLESTEROL 126 <140 MG/DL 03/25/2024 2:39 PM CDT [facility] 03/25/2024 8:46 AM CDT us Alida Klein MD LABORATORY Final Result [facility] [address] [place] [address], * HEPATITIS C ANTIBODY (03/25/2024 8:46 AM CDT) Pathologist [facility] HEPATITIS C AB NON-REACTI VE NON-REACT ANTOINETTE 03/25/2024 6:23 PM CDT [facility] Comment: ANTIBODIES TO HCV NOT DETECTED. DOES NOT EXCLUDE THE POSSIBILITY OF EXPOSURE TO HCV. 03/25/2024 8:46 AM CDT us Alida Klein MD LABORATORY Final Result [facility] [address] [place] [address], [id number] from Last 3 Months or Most Recently Relevant to Health Maintenance Insurance Care Teams Materials Intern Relationship Specialty Start Date End Date Alida Klein MD [address] [address] PCP - General INTERNAL MEDICINE 03/23/24
--- OUTSIDE RECORDS SUMMARY | 2025-06-13 12:10 | XMS_ITS | Encounter Summary ---
Author Organization [facility] Address [facility] [place] [address] Care Team Providers Care Cloth Winding Supervisor Name Role Phone Alida Klein MD Primary Care Provider [phone] Encounter Details Date Type Department Care Team (Late st Contact Info) Description 10/19/2024 MyChart Message Enc [facility] Medical Group Multispecialty Care - [place] [address] [address] [place], [place] [id number] Alida Klein MD [address] [place] [address] [address] [place] [address] Jardiance Social History Tobacco Use Types Packs/Day [...] PM CDT Legal Sex Female 7:40 PM MAMMOGRAPHY TECH Gender Identity Female 03/25/2024 3:16 PM CDT Sexual Orientation Straight 03/25/2024 3: 16 PM CDT documented as of this encounter Plan of Treatment Upcoming Encounters Date Type Department Care Team (Late st Contact Info) Description 06/19/2025 7:00 AM CDT Office Visit [facility] Medical Group Multispecialty Care [place] [address] [address] [place], [place] [address] Alida Klein MD [address] [place] [phone] documented as of this encounter Visit Diagnoses Not on filedocumented in this encounter Care Teams Cloth Winding Supervisor Relationship Specialty Start Date End Date Alida Klein MD [address] [place] [address] [phone] PCP - General INTERNAL MEDICINE 03/23/24 documented as of this encounter
--- OUTSIDE RECORDS SUMMARY | 2025-06-13 12:10 | XMS_ITS | Clinical Summary ---
Author Organization [facility] Address [address] [place] [address] Care Team Providers Care Catalyst Operator Gasoline Name Role Phone Rodrigo Rizvi MD Primary Care Provider [phone] Source Comments [facility],non-owned Affiliates and Associated Physician Practices is amultiple site organization consisting of ambulatory clinics and hospital sitesin [place], [place], [place] and [place]. This disclosure is being madepursuant to the Care Everywhere program and may not contain all information available regarding this patient. Last updated 18.[facility] Allergies No known active allergies Medications * Be aware that medications may not be up to date on this document. Alwaysverify current medications with the patient. 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 Gender Identity Female 02/12/2022 10:37 AM CDT Sexual Orientation Straight 02/12/2022 10 :37 AM CDT Plan of Treatment Health Maintenance Due Date Last Done Comments LIPID TESTING 1985 MAMMOGRAM 1985 HIV SCREENING 2000 HEPATITIS C SCREENING 03/27/2003 DTAP/TDAP/TD VACCINES (1 - Tdap) 2004 HEPATITIS B VACCINE (1 of 3 - 19+ 3-dose series) 2004 PAP SMEAR 2006 HPV VACCINE (1 - 3-dose SCDM series) 2012 DEPRESSION SCREENING 09/21/2024 COVID-19 VACCINE (1 - 2023-2 5 season) 2025 INFLUENZA VACCINE (#1) 2025 ZOSTER VACCINE (1 of 2) 2035 [...] patient's age to complete this topic Insurance [employer] SELF PAY NO INSURANCE Member Subscriber Plan / Payer (Ef fective for All Dates) Name:Destini Maza Member ID:Not on file Relation to Subscriber:Not on file Name:DESTINI MAZA Subscriber ID:Not on file Address: [address] [place], [place] [id number] Payer ID:Not on file Group ID:Not on file Type:Self Pay Address: [place], [place] HEALTH CARE SELF PAY NO INSURANCE Member Subscriber Plan / Payer (Ef fective for All Dates) Name:Destini Maza Member ID:Not on file Relation to Subscriber:Not on file Name:DESTINI MAZA Subscriber ID:Not on file Address: [address] [place] [address] Payer ID:Not on file Group ID:Not on file Type:Self Pay Address: [place], [place] SELF PAY NO INSURANCE Member Subscriber Plan / Payer (Ef fective for All Dates) Name:Destini Maza Member ID:Not on file Relation to Subscriber:Not on file Name:DESTINI MAZA Subscriber ID:Not on file Address: [address] [place] [address] Payer ID:Not on file Group ID:Not on file Type:Self Pay Address: [place], [place] Care Teams Catalyst Operator Gasoline Relationship Specialty Start Date End Date Rodrigo Rizvi MD [address] [place] [phone] PCP - General 04/27/18
--- OUTSIDE RECORDS SUMMARY | 2025-06-13 12:10 | XMS_ITS | Encounter Summary ---
Author Organization [facility] Address [facility] [place] [address] Care Team Providers Care Software Engineering Analyst Name Role Phone Alida Klein MD Primary Care Provider [phone] Encounter Details Date Type Department Care Team (Late st Contact Info) Description 05/18/2024 MyChart Message Enc [facility] Medical Group Multispecialty Care - [place] [address] [place] [address] [address] [place] [address] Alida Klein MD [address] [place] [address] 157 [place] [address] Lab results 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 Gender Identity Female 03/25/2024 3:16 PM CDT Sexual Orientation Straight 03/25/2024 3: 16 PM CDT documented as of this encounter Plan of Treatment Upcoming Encounters Date Type Department Care Team (Late st Contact Info) Description 06/19/2025 7:00 AM CDT Office Visit [facility] Medical Group Multispecialty Care - [place] [address] [address] [place] [address] Alida Klein MD [address] [place] [address] documented as of this encounter Visit Diagnoses Not on filedocumented in this encounter Additional Health Concerns Infection Onset Date Last Indicated Resolved Time COVID-19 Rule Out 09/30/2024 09/30/2024 09/30/2024 3:56 PM WEATHER ALGORITHM SCIENTIST documented as of this encounter Care Teams Software Engineering Analyst Relationship Specialty Start Date End Date Alida Klein MD [address] [place] [address] PCP - General INTERNAL MEDICINE 03/23/24 documented as of this encounter
--- OUTSIDE RECORDS SUMMARY | 2025-06-13 12:10 | XMS_ITS | Encounter Summary ---
Author Organization 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 Gender Identity Female 03/25/2024 3:16 PM CDT Sexual Orientation Straight 03/25/2024 3: 16 PM CDT documented as of this encounter Plan of Treatment Upcoming Encounters Date Type Department Care Team (Late st Contact Info) Description 06/19/2025 7:00 AM CDT Office Visit [facility] Medical Group Multispecialty Care - [place] [address] [address] [place] [address] Alida Klein MD [address] [place] [phone] documented as of this encounter Visit Diagnoses Not on filedocumented in this encounter Care Teams Hall Worker Relationship Specialty Start Date End Date Alida Klein MD [address] [place] [address] [phone] PCP - General INTERNAL MEDICINE 03/23/24 documented as of this encounter
--- OUTSIDE RECORDS SUMMARY | 2025-06-13 12:10 | XMS_ITS | Encounter Summary ---
Author Organization [facility] Address [facility] [place] [address] Care Team Providers Care Land Examiner Name Role Phone Alida Klein MD Primary Care Provider [phone] Encounter Details Date Type Department Care Team (Late st Contact Info) Description 05/20/2024 MyChart Message Enc [facility] Medical Group Multispecialty Care - [place] [address] [address] [place], [place] [phone] Alida Klein MD [address] [place] [address] [address] [place], [place] [phone] Lab results. 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 Sex Female 7:40 PM LVN Gender Identity Female 03/25/2024 3:16 PM CDT Sexual Orientation Straight 03/25/2024 3: 16 PM CDT documented as of this encounter Plan of Treatment Upcoming Encounters Date Type Department Care Team (Late st Contact Info) Description 06/19/2025 7:00 AM CDT Office Visit [facility] Medical Group Multispecialty Care - [place] [address] [address] [place] [address] Alida Klein MD [address] [place] [address] documented as of this encounter Visit Diagnoses Not on filedocumented in this encounter Additional Health Concerns Infection Onset Date Last Indicated Resolved Time COVID-19 Rule Out 09/30/2024 09/30/2024 09/30/2024 3:56 PM LVN documented as of this encounter Care Teams Land Examiner Relationship Specialty Start Date End Date Alida Klein MD [address] [place] [phone] PCP - General INTERNAL MEDICINE 03/23/24 documented as of this encounter
--- OUTSIDE RECORDS SUMMARY | 2025-06-13 12:10 | XMS_ITS | Clinical Summary ---
Author Organization [facility] Care Team Providers Care Threader Name Role Phone Unavailable Primary Care Provider [...]
--- OUTSIDE RECORDS SUMMARY | 2025-06-13 12:10 | XMS_ITS | Encounter Summary ---
Author Organization [facility] Address [facility] [place] [address] Care Team Providers Care Regulated Program Manager Name Role Phone Alida Klein MD Primary Care Provider [phone] Encounter Details Date Type Department Care Team (Late st Contact Info) Description 05/04/2024 MyChart Message Enc [facility] Medical Group Multispecialty Care 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 Gender Identity Female 03/25/2024 3:16 PM CDT Sexual Orientation Straight 03/25/2024 3: 16 PM CDT documented as of this encounter Plan of Treatment Upcoming Encounters Date Type Department Care Team (Late st Contact Info) Description 06/19/2025 7:00 AM CDT Office Visit [facility] Medical Group Multispecialty Care [place] [address] [address] [place] [address] Alida Klein MD [address] [address] documented as of this encounter Visit Diagnoses Not on filedocumented in this encounter Additional Health Concerns Infection Onset Date Last Indicated Resolved Time COVID-19 Rule Out 09/30/2024 09/30/2024 09/30/2024 3:56 PM MANAGER HUMAN RESOURCES documented as of this encounter Care Teams Regulated Program Manager Relationship Specialty Start Date End Date Alida Klein MD [address] [place] [phone] PCP - General INTERNAL MEDICINE 03/23/24 documented as of this encounter
--- OUTSIDE RECORDS SUMMARY | 2025-06-13 12:10 | XMS_ITS | Encounter Summary ---
Author Organization [facility] Address [facility] [place] [address] Care Team Providers Care Tick Inspector Name Role Phone Alida Klein MD Primary Care Provider [phone] Encounter Details Date Type Department Care Team (Late st Contact Info) Description 05/21/2024 MyChart Message Enc [facility] Medical Group Multispecialty Care - [place] [address] [place] [address] [address] [place], [place] [phone] Alida Klein MD [address] [place] [address] 157 [place] [address] STD test result Social History Tobacco Use [...] PM CDT 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 Gender Identity Female 03/25/2024 3:16 PM CDT Sexual Orientation Straight 03/25/2024 3: 16 PM CDT documented as of this encounter Plan of Treatment Upcoming Encounters Date Type Department Care Team (Late st Contact Info) Description 06/19/2025 7:00 AM CDT Office Visit [facility] Medical Group Multispecialty Care [place] [address] [address] [place] [address] Alida Klein MD [address] [place] [address] documented as of this encounter Visit Diagnoses Not on filedocumented in this encounter Additional Health Concerns Infection Onset Date Last Indicated Resolved Time COVID-19 Rule Out 09/30/2024 09/30/2024 09/30/2024 3:56 PM BATHROOM TILING PROFESSIONAL documented as of this encounter Care Teams Tick Inspector Relationship Specialty Start Date End Date Alida Klein MD [address] [place] [phone] PCP - General INTERNAL MEDICINE 03/23/24 documented as of this encounter
[2025-06-13 12:20] LABS: Alanine Aminotransferase 19 U/L (6-35); Albumin Level 4.9 g/dL (3.5-5.1); Alkaline Phosphatase 55 U/L (38-126); Anion Gap 11 mmol/L (4-12); Aspartate Amino Transferase 27 U/L (14-36); Bilirubin,Total 0.7 mg/dL (0.2-1.3); Blood Urea Nitrogen 14 mg/dL (7-17); Calcium 9.2 mg/dL (8.4-10.2); Carbon Dioxide 21 mmol/L (22-30); Chloride 106 mmol/L (98-107); Estimated CRCL calculation 118 ml/min; Estimated Glomerular Filt Rate > 60; Glucose 128 mg/dL (65-110); Lipase 64 U/L (23-300); Potassium 4.1 mmol/L (3.4-5.0); Sodium 138 mmol/L (137-145); Total Protein 8.3 g/dL (6.3-8.2)
--- OUTSIDE RECORDS SUMMARY | 2025-06-13 12:41 | XMS_ITS | Clinical Summary ---
Author Organization [facility] Address [address] [place] [address] Care Team Providers Care Vacation Sales Advisor Name Role Phone Rodrigo Rizvi MD Primary Care Provider [phone] Source Comments [facility],non-owned Affiliates and Associated Physician Practices is amultiple site organization consisting of ambulatory clinics and hospital sitesin [place], [place], [place] and [place]. This disclosure is being madepursuant to the Care Everywhere program and may not contain all information available regarding this patient. Last updated 18.[facility] Allergies No known active allergies Medications * Be aware that medications may not be up to date on this document. Alwaysverify current medications with the patient. 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 Gender Identity Female 02/12/2022 10:37 AM CDT [...] patient's age to complete this topic Insurance [employer] SELF PAY NO INSURANCE Member Subscriber Plan / Payer (Ef fective for All Dates) Name:Destini Maza Member ID:Not on file Relation to Subscriber:Not on file Name:DESTINI MAZA Subscriber ID:Not on file Address: [address] [place], [place] [id number] Payer ID:Not on file Group ID:Not on file Type:Self Pay Address: [place], [place] HEALTH CARE SELF PAY NO INSURANCE Member Subscriber Plan / Payer (Ef fective for All Dates) Name:Destini Maza Member ID:Not on file Relation to Subscriber:Not on file Name:DESTINI MAZA Subscriber ID:Not on file Address: [address] [place] [address] Payer ID:Not on file Group ID:Not on file Type:Self Pay Address: [place] SELF PAY NO INSURANCE Member Subscriber Plan / Payer (Ef fective for All Dates) Name:Destini Maza Member ID:Not on file Relation to Subscriber:Not on file Name:DESTINI MAZA Subscriber ID:Not on file Address: [address] [place] [address] Payer ID:Not on file Group ID:Not on file Type:Self Pay Address: [place], [place] Care Teams Vacation Sales Advisor Relationship Specialty Start Date End Date Rodrigo Rizvi MD [address] [place] [phone] PCP - General 04/27/18
--- OUTSIDE RECORDS SUMMARY | 2025-06-13 12:41 | XMS_ITS | Clinical Summary ---
Author Organization [facility] Care Team Providers Care Shot Hole Shooter Name Role Phone Unavailable Primary Care Provider [...]
--- NOTE | 2025-06-13 12:46 | ED_ITS ---
HPI - Abdominal Pain General Chief Complaint: Abdominal Pain Stated Complaint: I think I have ovarian torsion again Time Seen by Provider: 06/13/25 12:02 History of Present Illness HPI narrative: This is a 40-year-old female with history of PCOS status post right oophorectomy who presents the ED for left lower quadrant abdominal pain. Patient states for the past 4 days, she has been having vomiting with a rather persistent left lower quadrant abdominal illness. She states that she had a more severe symptoms about a month ago and there was concerns that she may have had an ovarian torsion but she had a rather reassuring workup. She was advised to return to the ED for any return of symptoms or worsening symptoms. Patient has not been able to tolerate solids or liquids for the last 4 days. Her last bowel movement was this morning and it was smaller than usual. No difficulty with urination. Related Data Home Medications ?Medication ?Instructions ?Recorded ?Confirmed ?Last Taken ?Type aspirin 81 mg tablet,delayed 81 mg PO DAILY 05/06/20 0 11/14/24 11/13/24 History release (Adult Low Dose Aspirin) ergocalciferol (vitamin D2) 1,250 1,250 mcg PO WEEKLY 05/06/20 11/14/24 11/13/24 History mcg (50,000 unit) capsule (Vitamin D2) acyclovir 800 mg tablet mg 01/01/25 Unknown History oxybutynin chloride 10 mg mg PO 01/01/25 Unknown Hist ory tablet,extended release 24 hr sertraline 100 mg tablet 100 mg PO QHS 01/19/25 Unkn own History Allergies Allergy/AdvReac Type Severity Reaction Status Date / Time Mcdermott And Derivatives AdvReac Mild Nausea and Verified 06/13/25 11:37 Vomiting Review of Systems 2 Review of Systems: Gen.: Denies fevers or chills Eyes: Denies eye pain or visual change ENT: Denies congestion Respiratory: Denies shortness of breath or cough CV: Denies chest pain or palpitations GI: As per HPI denies burning, urgency, frequency or hematuria Musculoskeletal: Denies back pain or muscle pain Neuro: Denies numbness, tingling, weakness or focal weakness Skin: Denies rash Except as documented, all other systems reviewed and negative [facility] Past Medical History Medical History Interstitial cystitis Pulmonary stenosis Depression with anxiety GERD (gastroesophageal reflux disease) Hx of pulmonary artery stenosis Surgical History Surgical History Pulmonary valve replaced Hx of cholecystectomy Hx of mitral valve replacement Hx of tonsillectomy Family History Family History Father Diabetes mellitus Lung cancer Social History Social History Smoking status: Never smoker Alcohol intake: current Alcohol use details: VERY RARE Substance use: current Substance use type: marijuana Do You Feel Safe in your Home?: Yes Lack of Transportation: No Lack of Food: Sometimes True Current Housing: I Have Housing Concerned About Future Housing: No Difficulty Paying Gas/Electric Bills: YES Difficulty Paying for Meds: YES Currently Unemployed: No Education: High School Diploma/GED Living arrangements: with family Gender identity (if verbalized by the patient): Female Spiritual care concerns: No Exam 2 Narrative: APPEARANCE: No acute distress, nontoxic, resting in bed EYES: EOMI HEENT: Normocephalic, atraumatic, OMM RESPIRATORY: No respiratory distress Clear to auscultation bilaterally with no rhonchi wheezing or rales. CARDIOVASCULAR: Regular rate and rhythm. 3/6 systolic murmur loudest at the left upper sternal border. Well-healed sternotomy scar. ABDOMINAL: Soft, nontender, nondistended, no rebound or guarding MUSCULOSKELETAl: Moves all extremities. No clubbing, cyanosis or edema. NEURO: Awake and alert. Following commands, speech normal, no focal deficits SKIN:: Warm, dry. No rashes lesions or abrasions PSYCHIATRIC: Normal affect/mood, Course Vital Signs Vital signs: Vital Signs Temperature 97.5 F L 06/13/25 11:36 Pulse Rate 86 06/13/25 11:36 Respiratory Rate 16 06/13/25 11:36 Blood Pressure 134/94 H 06/13/25 11:36 Pulse Oximetry 98 06/13/25 11:36 Temperature 97.5 F L 06/13/25 11:36 Pulse Rate 62 06/13/25 15:33 Respiratory Rate 16 06/13/25 15:33 Blood Pressure 107/51 L 06/13/25 15:33 Pulse Oximetry 97 06/13/25 15:33 MDM - Abdominal Pain MDM Narrative Medical decision making narrative: 40-year-old female presents to the ED for left lower quadrant abdominal pain. On initial evaluation, patient was in mild distress, afebrile, hemodynamically stable. She had mild left lower quadrant tenderness to palpation without rebound or guarding. Given prior history of cysts and prior concerns for torsion, transvaginal ultrasound was obtained which showed no evidence of torsion but did reveal a small hemorrhagic ovarian cyst which is likely the source of her discomfort. Patient was given Zofran, 1 L NS bolus, and Toradol. She did have some improvement of her pain but her nausea was not significantly improved. Patient did reveal that she is also septic so she will be given Reglan. On re-evaluation, she was feeling much better from her nausea standpoint. Patient follows with Dr. Humphreys, gynecology, who advised her to follow up within the next week for re-evaluation. Patient was agreeable to this plan. Given strict return precautions. Differential Diagnosis Differential diagnosis: Likely abdominal pain, gastroenteritis and other (Ovarian torsion, ovarian cyst, ruptured ovarian cyst, mass) Medical Records Attestation: I reviewed the patient's medical records. Lab Data Attestation: I reviewed the patient's lab results. 06/13/25 11:51 06/13/25 11:51 Labs: Lab Results 06/13/25 Range/Units 11:51 WBC 7.4 (4.5-10.0) K/mm3 RBC 4.60 (4.2-5.4) M/mm3 Hgb 14.1 (12.0-15.0) g/dL Hct 41.7 (37.0-47.0) % MCV 90.7 (80-100) fl MCH 30.7 (26-34) pg MCHC 33.8 (32-36) g/dl RDW 12.0 (11.5-14.5) % Plt Count 242 (150-375) k/mm3 MPV 9.9 (7.4-10.4) fl Immature Gran % (Auto) 0.4 (0-0.5) % Neut % (Auto) 77.4 H (45.5-73.1) % Lymph % (Auto) 16.9 L (18.3-44.2) % [place] % (Auto) 4.9 (2.6-8.5) % Eos % (Auto) 0.1 (0-4.4) % Baso % (Auto) 0.3 (0.2-1.2) % Lymph # (Auto) 1.25 (0.9-3.2) K/mm3 [place] # (Auto) 0.4 (0.1-0.6) K/mm3 Eos # (Auto) 0.0 (0-0.3) K/mm3 Baso # (Auto) 0.0 (0.0-0.1) K/mm3 Abs Immat Gran (auto) 0.03 (0.00-0.031) K/mm3 Absolute Neuts (auto) 5.7 (1.3-6.7) K/mm3 Absolute Nucleated RBC 0.000 (0.0-0.012) K/mm3 Nucleated RBC % 0.0 (0.0-0.2) % Sodium 138 (137-145) mmol/L Potassium 4.1 (3.4-5.0) mmol/L Chloride 106 (98-107) mmol/L Carbon Dioxide 21 L (22-30) mmol/L Anion Gap 11 (4-12) mmol/L BUN 14 (7-17) mg/dL Creatinine 0.55 L (0.7-1.0) mg/dL Estim Creat Clear Calc 118 ml/min Estimated GFR > 60 (59 - ) Glucose 128 H (65-110) mg/dL Calcium 9.2 (8.4-10.2) mg/dL Total Bilirubin 0.7 (0.2-1.3) mg/dL AST 27 (14-36) U/L ALT 19 (6-35) U/L Alkaline Phosphatase 55 (38-126) U/L Total Protein 8.3 H (6.3-8.2) g/dL Albumin 4.9 (3.5-5.1) g/dL Lipase 64 (23-300) U/L Urine Color Yellow (Yellow) Urine Appearance Clear (Clear) Urine pH 5.5 (5.0-9.0) Ur Specific [place] 1.023 (1.001-1.035) Urine Protein Negative (Negative) mg/dL Urine Glucose (UA) Negative (Negative) mg/dL Urine Ketones 1+ H (Negative) mg/dL Ur Blood (Man) Negative (Negative) Urine Nitrate Negative (Negative) Urine Bilirubin Negative (Negative) Urine Urobilinogen 0.2 (<2.0) mg/dL Leukocyte Esterase Rfl Negative (Negative) CHAKA/UL Urine Test Negative Imaging Data Attestation: I personally reviewed and interpreted this imaging study as follows: (I reviewed the radiologist's interpretations) Radiologist's impression: ITS Impressions Pelvic/Transvag US 06/13/25 13:28 IMPRESSION: 1.There is a 1.4 x 0.7 x 1.0 cm possible hemorrhagic ovarian cyst in the left ovary. The finding is new as compared to the study from 04/10/2025. A short-term follow-up pelvic ultrasound in 2-4 weeks is recommended to assess for interval clearance. 2. Hysterectomy and right oophorectomy in 2023 If symptoms persist or worsen, consider a short-term follow-up study or additional imaging for further assessment. Discharge Plan Discharge Clinical Impression: Hemorrhagic cyst of ovary Nausea & vomiting Qualifiers: Vomiting type: unspecified Qualified Code(s): R11.2 - Nausea with vomiting, unspecified Patient Disposition: Home Condition: Stable Instructions: Antibiotic Form, Ovarian Cyst (ED) Additional Instructions: He may take Tylenol and ibuprofen for your pain. Your given a prescription for Reglan, take this as prescribed. Follow-up with Dr. Leon in the next few days for re-evaluation and for a repeat ultrasound within the next few weeks. Return the ED for any new or worsening symptoms. Patient Language: Albanian Prescriptions: New metoclopramide HCl [Reglan] 10 mg tablet 10 mg PO Q6H PRN (Reason: nausea and vomiting) Qty: 14 0RF No Action aspirin [Adult Low Dose Aspirin] 81 mg Tablet,Delayed Release (Dr/Ec) 81 mg PO DAILY ergocalciferol (vitamin D2) [Vitamin D2] 1,250 mcg (50,000 unit) Capsule 1,250 mcg PO WEEKLY Patient Comments: PT TAKES ON THURSDAY oxybutynin chloride 10 mg tablet extended release 24hr PO acyclovir 800 mg tablet sertraline 100 mg tablet 100 mg PO QHS famotidine [Pepcid] 20 mg tablet 20 mg PO BID Qty: 20 0RF ondansetron 4 mg tablet,disintegrating 4 mg PO Q8H PRN (Reason: nausea and vomiting) Qty: 10 0RF Follow-up/Referrals: Jake Humphreys MD [Physician, [employer]] Latoya,MD Alida [Primary Care Provider, Unknown]
[2025-06-13] MEDS: SODIUM CHLORIDE 0.9% IV 1,000 ML 999 ML IV CONT (13:45)
[2025-06-13] MEDS: ONDANSETRON INJ 4 MG/2 ML VIAL IV PUSH (13:45)
[2025-06-13] MEDS: KETOROLAC 30 MG/ML VIAL (*BKC) IV PUSH (13:45)
[2025-06-13 14:24] LABS: Pregnancy On Board Control Positive
[2025-06-13] MEDS: METOCLOPRAMIDE HCL INJ 10 MG/2 ML VIAL IV PUSH (15:02)
[2025-06-13 15:33] VITALS: BP 107/51; PULSE 62; RESP 16; O2SAT 97
== END 2025-06-13 15:35 | disposition home or self-care (01) ==
PROVIDERS: Emergency Medicine; Emergency Provider Student in an Organized Health Care Education/Training Program; PCP Internal Medicine
DX: N83.202 Unspecified ovarian cyst, left side (principal); R11.2 Nausea with vomiting, unspecified; F12.90 Cannabis use, unspecified, uncomplicated
CPT/HCPCS: 36415; 76830; 76856; 80053; 81003; 81025; 83690; 85025; 96361; 96374; 96375; 99284; J1885; J2405; J2765; J7030

== ENCOUNTER 2025-07-14 17:10 | Emergency (ER) | payer OTHER, SELFPAY ==
--- NOTE | ~2025-07-14 | XR_ITS ---
EXAMINATION: XR ankle LT min 3V, 07/14/2025 17:31 CDT HISTORY: medial LT ankle pain/injury 2x days COMPARISON: No comparisons available. Findings: No acute fracture or malalignment. No significant degenerative changes. Soft tissues unremarkable. Impression: No acute fracture or malalignment. Reviewed, dictated and finalized at location P. Impression: No acute fracture or malalignment.
[2025-07-14 17:18] VITALS: BP 122/64; PULSE 71; RESP 16; TEMP 36.8; O2SAT 99
--- NOTE | 2025-07-14 17:20 | ED_ITS ---
HPI - Extremity Injury (Lower) General Chief Complaint: Extremity Injury, Lower Stated Complaint: left ankle injury Time Seen by Provider: 07/14/25 17:20 Source: patient Mode of arrival: ambulatory Limitations: no limitations History of Present Illness HPI Narrative: Destini is a 40-year-old female patient presenting to the clinic today with complaints of a left ankle injury/bruising. She reports 2 days ago she was at work and she had comes on a jaime and she tripped backwards and the jaime fell on top of her left ankle. She has a bruise with mild swelling to the left medial ankle. States she has full range of motion but she is having some pain with bearing weight without wearing her Rios wrap. If she is wearing the Rios wrap she denies any pain. Has not taken any medications for pain. Related Data Home Medications ?Medication ?Instructions ?Recorded ?Confirmed ?Last Taken ?Type aspirin 81 mg tablet,delayed 81 mg PO DAILY 05/06/20 0 11/14/24 11/13/24 History release (Adult Low Dose Aspirin) ergocalciferol (vitamin D2) 1,250 1,250 mcg PO WEEKLY 05/06/20 11/14/24 11/13/24 History mcg (50,000 unit) capsule (Vitamin D2) acyclovir 800 mg tablet mg 01/01/25 Unknown History oxybutynin chloride 10 mg mg PO 01/01/25 Unknown Hist ory tablet,extended release 24 hr sertraline 100 mg tablet 100 mg PO QHS 01/19/25 Unkn own History scopolamine base 1 mg over 3 days 07/14/25 Unknown H istory transdermal patch Allergies Allergy/AdvReac Type Severity Reaction Status Date / Time [place] And Derivatives AdvReac Mild Nausea and Verified 07/14/25 17:12 Vomiting Review of Systems Review of Systems: Pertinent positives per HPI. Patient denies any fever, chills, rash, headache, visual changes, dizziness, cough, runny nose, sore throat, shortness of breath, chest pain, palpitations, nausea, vomiting, diarrhea, constipation, abdominal pain, or any urinary issues. [facility] Past Medical History Medical History Interstitial cystitis Pulmonary stenosis Depression with anxiety GERD (gastroesophageal reflux disease) Hx of pulmonary artery stenosis Surgical History Surgical History Pulmonary valve replaced Hx of cholecystectomy Hx of mitral valve replacement Hx of tonsillectomy Family History Family History Father Diabetes mellitus Lung cancer Social History Social History Smoking status: Never smoker Alcohol intake: current Alcohol use details: VERY RARE Substance use: current Substance use type: marijuana Do You Feel Safe in your Home?: Yes Lack of Transportation: No Lack of Food: Sometimes True Current Housing: I Have Housing Concerned About Future Housing: No Difficulty Paying Gas/Electric Bills: YES Difficulty Paying for Meds: YES Currently Unemployed: No Education: High School Diploma/GED Living arrangements: with family Gender identity (if verbalized by the patient): Female Spiritual care concerns: No Comments At the time of my signature, I reviewed and agree with the nursing past medical, surgical, social, and family history. There is no relevant family history pertinent to the patient complaint. Exam Narrative: General: Well-developed, well nourished, in no apparent distress Head: Normocephalic, atraumatic. Cardio: Regular rate and rhythm, s1 and s2 normal, no murmur appreciated. Resp: Clear to auscultation bilaterally, no rhonchi, rales, wheezing or rubs. Musculoskeletal: No deformity, bruising noted to the left medial ankle old bruising extending to the medial foot, tender to palpation over the left medial ankle, grossly normal range of motion, muscle strength strong and equal, peripheral pulse strong, no edema, no cyanosis, normal gait and station Course Course Emergency Course: Portions of this record may have been created with voice recognition software. Level of Care: Express Care Visit Vital Signs Vital signs: Vital Signs Temperature 36.8 C 07/14/25 17:18 Pulse Rate 71 07/14/25 17:18 Respiratory Rate 16 07/14/25 17:18 Blood Pressure 122/64 07/14/25 17:18 Pulse Oximetry 99 07/14/25 17:18 Oxygen Delivery Room Air 07/14/25 17:18 Temperature 36.8 C 07/14/25 17:18 Pulse Rate 71 07/14/25 17:18 Respiratory Rate 16 07/14/25 17:18 Blood Pressure 122/64 07/14/25 17:18 Pulse Oximetry 99 07/14/25 17:18 Oxygen Delivery Room Air 07/14/25 17:18 Vital signs reviewed MDM - Extremity Injury (Lower) MDM Narrative Medical decision making narrative: At the time of visit patient is resting comfortably on the exam table. Patient appears to be nontoxic. complaints of a left ankle injury/bruising. She rep orts 2 days ago she was at work and she had comes on a jaime and she tripped backwards and the jaime fell on top of her left ankle. She has a bruise with mild swelling to the left medial ankle. States she has full range of motion but she is having some pain with bearing weight without wearing her Rios wrap. If she is wearing the Rios wrap she denies any pain. Has not taken any medications for pain. On exam patient has bruising to the left medial ankle with bruising seen to the lateral foot, no swelling, full range of motion. X-ray of the left ankle was ordered per patient request. Diagnostics: X-ray of the left ankle was negative for any sign of fracture or malalignment. Plan: I suspect patient has left ankle contusion. Supportive measures were discussed with the patient and they voiced understanding discharge instructions and agrees to treatment plan. Return precautions reviewed Differential Diagnosis Differential diagnosis: Likely ankle sprain and strain, ankle fracture and other (Contusion) Discharge Plan Discharge Clinical Impression: Contusion of ankle, left Qualifiers: Encounter type: initial encounter Qualified Code(s): S90.02XA - Contusion of left ankle, initial encounter Patient Disposition: Home Condition: Stable Instructions: Antibiotic Form, Contusion in Adults (ED) Additional Instructions: X-ray of the left ankle is negative for any sign of fracture or malalignment. Rest, ice, elevate, and wear rios wrap as directed Tylenol/motrin for pain as discussed. Follow up with your PCP if symptoms persist more than 1 week. Patient Language: Upper Sorbian Prescriptions: No Action aspirin [Adult Low Dose Aspirin] 81 mg Tablet,Delayed Release (Dr/Ec) 81 mg PO DAILY ergocalciferol (vitamin D2) [Vitamin D2] 1,250 mcg (50,000 unit) Capsule 1,250 mcg PO WEEKLY Patient Comments: PT TAKES ON THURSDAY scopolamine base 1 mg over 3 days patch 3 day oxybutynin chloride 10 mg tablet extended release 24hr PO acyclovir 800 mg tablet sertraline 100 mg tablet 100 mg PO QHS famotidine [Pepcid] 20 mg tablet 20 mg PO BID Qty: 20 0RF metoclopramide HCl [Reglan] 10 mg tablet 10 mg PO Q6H PRN (Reason: nausea and vomiting) Qty: 14 0RF Follow-up/Referrals: Latoya,MD Alida [Primary Care Provider, Unknown] Time of Disposition: 17:44 Quality NIHSS Nursing Documentation ED NIHSS nursing documentation: reviewed/agree
== END 2025-07-14 18:00 | disposition home or self-care (01) ==
PROVIDERS: Emergency Provider Nurse Practitioner Family; PCP Internal Medicine
DX: S90.02XA Contusion of left ankle, initial encounter (principal); W20.8XXA Other cause of strike by thrown, projected or falling object, initial encounter; F12.90 Cannabis use, unspecified, uncomplicated; K21.9 Gastro-esophageal reflux disease without esophagitis; F41.9 Anxiety disorder, unspecified; F32.A Depression, unspecified; Z95.2 Presence of prosthetic heart valve; Z79.82 Long term (current) use of aspirin
CPT/HCPCS: 73610; 99213; G0463

== ENCOUNTER 2025-08-02 07:56 | Outpatient (CLI) | payer OTHER, SELFPAY ==
--- OUTSIDE RECORDS SUMMARY | 2025-07-03 03:30 | XMS_ITS | Continuity of Care Document ---
Author Organization [facility] Address [address] [place] [address] Phone Care Team Providers Care Med Specialist Name Role Phone Zion TYLER, FACBasilio Unavailable Unavailab le Allergies, Adverse Reactions, Alerts Substance Reaction Status Criticality No Known Allergies Active No Inform ation Medications Medication Instructions Dosage Effective Dates (start - stop) Status Comments metoclopramide 5 mg tablet TAKE 1 TABLET BY MOUTH ONCE DAILY NEEDED - Active omeprazole 40 mg capsule,delayed release TAKE 1 CAPSULE BY MOUTH ONCE DAILY NEEDED - Active Ozempic 0.25 mg or 0.5 mg (2 mg/3 mL) subcutaneous pen injector INJECT 0.25 MG SUBCUTANEOUSLY ONCE A WEEK - Active ergocalciferol (vitamin D2) 1,250 mcg (50,000 unit) capsule TAKE 1 CAPSULE BY MOUTH ONCE A WEEK - Active metoclopramide 10 mg tablet TAKE 1 TABLET BY MOUTH EVERY 6 HOURS NEEDED FOR NAUSEA AND VOMITING - Active scopolamine 1 mg over [address] 1 PATCH ONTO THE SKIN EVERY THREE DAYS. DO NOT TOUCH YOUR EYES WHEN PLACE THE PATCH BEHIND THE EAR. - Active acyclovir 800 mg tablet TAKE 1 TABLET BY MOUTH ONCE DAILY - Active oxybutynin chloride ER 10 mg tablet,extended release 24 hr TAKE 1 TABLET BY MOUTH ONCE DAILY - Active sertraline 50 mg tablet TAKE 1 TABLET BY MOUTH ONCE DAILY - Active sertraline 100 mg tablet - A ctive metronidazole 500 mg tablet - Active fluconazole 150 mg tablet - Active nitrofurantoin monohydrate/macrocrystals 100 mg capsule TAKE 1 CAPSULE BY MOUTH EVERY 12 HOURS FOR 5 DAYS - Active dicyclomine 20 mg tablet TAKE 1 TABLET B Y MOUTH THREE TIMES DAILY NEEDED FOR ABDOMINAL PAIN - Active famotidine 20 mg tablet TAKE 1 TABLET BY MOUTH TWICE DAILY - Active doxycycline hyclate 100 mg capsule TAKE 1 CAPSULE BY MOUTH TWICE DAILY FOR 7 DAYS - Active albuterol sulfate HFA 90 mcg/actuation aerosol inhaler INHALE 1 PUFF BY MOUTH 4 TIMES DAILY - Active benzonatate 100 mg capsule TAKE 1 CAPSULE BY MOUTH THREE TIMES DAILY NEEDED FOR COUGH - Active Jardiance 25 mg tablet TAKE 1 TABLET BY MOUTH ONCE DAILY - Active amoxicillin 875 mg-potassium clavulanate 125 mg tablet - Active methylprednisolone 4 mg tablets in a dose pack TAKE BY MOUTH DIRECTED ON INSIDE OF PACKAGE - Active naproxen 500 mg tablet TAKE 1 TABLET BY MOUTH TWICE DAILY WITH FOOD - Active ondansetron HCl 4 mg tablet TAKE 1 TABLET BY MOUTH EVERY 8 HOURS NEEDED - Active prednisone 50 mg tablet TAKE 1 TABLET BY MOUTH ONCE DAILY - Active Mounjaro 5 mg/0.5 mL subcutaneous pen injector INJECT 5MG SUB-Q ONCE A WEEK - Active Procedures Procedure Date Complex e/m visit add on OFFICE/OUTPATIENT VISIT, EST Advance Directives Directive Yes / No Effective Date File Name No Information Encounters Encounter Description Practice Location Reason(s) For Visit Diagnoses Date Provider Providers Copied on Encounter OFFICE/OUTPA TIENT VISIT, EST [facility], [address], [place], [place], [id number] , [place] tel: [phone] [facility] follow up (chief complaint) Essential (primary) hypertensionObesity, unspecifiedOther fatiguePrediabetesSle ep apnea, unspecifiedStenosis of pulmonary artery [address] Toni[address]. [address] , [place], [place], [id number] , [place]. tel: [phone] Referring Provider: Alida Klein, [address], [place], [address]. tel:[phone] [facility], [address] [place] [address], [id number] , tel: [phone] [facility] [place] No Information Zion Janeiya. [address] [place], [place], [id number] , [place]. tel: [phone] [facility], [address] [place] [address], [id number] , tel: [phone] [facility] [place] Stenosis of pulmonary arteryFatigueHTNEdema ObesityPrediabetesSle ep apnea Donovan Toniya. [address] [place], [place], [id number] , [place]. tel: [phone] Family History Family Member Type Diagnosis Age At Onset No Information Payers Payer name Insurance type Covered republican ID Niesha couch(s) [facility] CI [id number] Social History Type Description Quantity Date Captured Comments Alcohol Use Details Unknown Caffeine Use Details Unknown Tobacco Use Status No Information Smoking Status No Information Sex Female Vital Signs Date / Time: Height Weight BMI Pulse Rate Blood Pressure Temperature Respiratory Rate Body Surface Area Head Circumference Head Circ. Percentile Wt./[place]. Percentile BMI percentile Pulse Ox Inhaled Ox 9:42 AM 80.286 kg (177.00 lbs) Chief Complaint And Reason For Visit From encounter dated 07/03/2025 09:30'. follow up (chief complaint) Reason For Referral Reason For Referral No Information History Of Present Illness Encounter Date Complaint History Of Prese nt Illness follow up Functional Status Date Functional Assessmen t No Information Instructions Date Instruction Additional Infor mation No Information Assessments Type Assessment Date assessment Essential (primary) hypertension assessment Obesity, unspecified assessment Other fatigue assessment Prediabetes assessment Sleep apnea, unspecified 2024 assessment Stenosis of pulmonary artery Jun Patient Care Teams Name Effective Dates (start - stop) Status Members No Information
--- NOTE | 2025-08-02 08:01 | ECG_ITS ---
Test Date: 2025-08-02 08:11:20 Measurements Intervals [place] Rate: 59 P: 58 PA: 202 QRS: 54 QRSD: 123 T: 61 QT: 403 QTc: 400 Interpretive Statements SINUS BRADYCARDIA RSR' IN V1 OR V2, PROBABLY NORMAL VARIANT No previous ECG available for comparison Electronically Signed On 08-02-2025 13:19:06 ROUGH ROUNDER by Magdiel Salgado M.D.
--- OUTSIDE RECORDS SUMMARY | 2025-08-02 08:05 | XMS_ITS | Clinical Summary ---
Author Organization [facility] Address [address] [place] [address] Care Team Providers Care Automatic Casting Machine Operator Name Role Phone Rodrigo Rizvi MD Primary Care Provider [phone] Source Comments [facility],non-owned Affiliates and Associated Physician Practices is amultiple site organization consisting of ambulatory clinics and hospital sitesin [place], [place], [place] and [place]. This disclosure is being madepursuant to the Care Everywhere program and may not contain all information available regarding this patient. Last updated 18.[facility] Allergies No known active allergies Medications * Be aware that medications may not be up to date on this document. Alwaysverify current medications with the patient. 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 Gender Identity Female 02/12/2022 10:37 AM CDT [...] patient's age to complete this topic Insurance [facility] [facility] [employer] SELF PAY NO INSURANCE Member Subscriber Plan / Payer (Ef fective for All Dates) Name:Destini Maza Member ID:Not on file Relation to Subscriber:Not on file Name:DESTINI MAZA Subscriber ID:Not on file Address: [address] [place], [place] [id number] Payer ID:Not on file Group ID:Not on file Type:Self Pay Address: [place], [place] HEALTH CARE SELF PAY NO INSURANCE Member Subscriber Plan / Payer (Ef fective for All Dates) Name:eDstini Maza Member ID:Not on file Relation to Subscriber:Not on file Name:DESTINI MAZA Subscriber ID:Not on file Address: [address] [place] [address] Payer ID:Not on file Group ID:Not on file Type:Self Pay Address: [place], [place] SELF PAY NO INSURANCE Member Subscriber Plan / Payer (Ef fective for All Dates) Name:Destini Maza Member ID:Not on file Relation to Subscriber:Not on file Name:DESTINI MAZA Subscriber ID:Not on file Address: [address] [place] [address] Payer ID:Not on file Group ID:Not on file Type:Self Pay Address: [place], [place] Care Teams Automatic Casting Machine Operator Relationship Specialty Start Date End Date Rodrigo Rizvi MD [address] [place] [id number] PCP - General 04/27/18
--- OUTSIDE RECORDS SUMMARY | 2025-08-02 08:05 | XMS_ITS | Clinical Summary ---
Author Organization [facility] Care Team Providers Care Grill Prep Cook Name Role Phone Unavailable Primary Care Provider [...] (CCS) 2015 HPV/Cotest 2015 Influenza Immunization (#1) 2025 100 09/2019, 06/08/2019, 06/15/2018, Additional history exists SARS-COV-2 Immunization ( season) 2025 12/29/2020, 12/02/2020 Respiratory Syncytial Virus (RSV) Immunization [...]
--- OUTSIDE RECORDS SUMMARY | 2025-08-02 08:06 | XMS_ITS | Data Portability ---
Author Organization 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 Patient will come back in a year unless there are new symptoms. [email or web address] Not available 03/27/2025 10:03:43 Plan of Treatment Reminders Order Date Submit Date Provider Last Modified By Organization Details Last Modified Time Details Appointments None recorded. Lab pap, IG + HR HPV - HPV regardless but if HPV is positive need subtyping 16,18/[address]/GC/Trich [address] [facility] (Lab), [address], [place], [address], 5 09:56:45 25-hydroxyv itamin D2 + 25-hydroxyv itamin D3, QN, serum or plasma [address] [facility] (Lab), [address], [place], [address], 5 09:56:44 HBsAg (hepatitis B surface Ag), serum [address] [facility] (Lab), [address], [place], [address], 5 09:56:44 urinalysis, dipstick 2024 025 [email or web address] [place], [address], [place], [address], 15:51:35 CT + NG + TV, RNA, unspecified specimen [address] [facility] (Lab), [address], [place], [address], 16:55:56 Referral None recorded. Procedures None recorded. Surgeries None recorded. Imaging US, transvagina l 2024 [email or web address] [place], [address], [place], [address], 17:51:03 Medication Orders estradiol 0.01% (0.1 mg/gram) vaginal cream 2024 [facility], [address] [place] [address], [address], 10:37:57 Macrobid 100 mg capsule 2024 [facility], [address] [place] [address], [address], 15:53:04 Diflucan 150 mg tablet 2024 [facility], [address] [place] [address], [address], 5 15:53:03 Patient TargetsNo targets recorded. Patient InstructionsNo instructions recorded. Reason for Referral None Reported. Results Created Date Observation Date Name Description Value Unit Range Abnormal Flag Note LastModifiedBy Organization Detail LastModifiedTime 02/23/20 25 02/22/2025 CT/GC AND TRICH OMONA S VAGIN JOLEEN (RRNA ), URINE chlamydia trachomatis, PCR Negati ve negati ve Not Available [facility] (Lab) [address], [place], [address], 02/23/2025 16:55:56 02/23/20 25 02/22/2025 CT/GC AND TRICH OMONA S VAGIN JOLEEN (RRNA ), URINE neisseria gonorrhoeae, PCR Negati ve negati ve Not Available [facility] (Lab) [address], [place], [address], 02/23/2025 16:55:56 02/23/20 25 02/22/2025 CT/GC AND TRICH OMONA S VAGIN JOLEEN (RRNA ), URINE trichomonas vaginalis ribosomal RNA (rrna) Negati ve negati ve Not Available [facility] (Lab) [address], [place], [address], 02/23/2025 16:55:56 02/23/20 25 02/22/2025 urina lysis , dipst ick Leukocytes - Not Available [facility] alyse [address], [place], [address], 02/22/2025 15:49:42 02/23/20 25 02/22/2025 urina lysis , dipst ick Nitrite - Not Available [facility] [address], [place], [address], 02/22/2025 15:49:42 02/23/20 25 02/22/2025 urina lysis , dipst ick Urobilinogen - Not Available [facility] leisa [address], [place], [address], 02/22/2025 15:49:42 02/23/20 25 02/22/2025 urina lysis , dipst ick Protein trace Not Available [facility] [address], [place], [address], 02/22/2025 15:49:42 02/23/20 25 02/22/2025 urina lysis , dipst ick pH 5 Not Available [place] [address], [place], [address], 02/22/2025 15:49:42 02/23/20 25 02/22/2025 urina lysis , dipst ick Specific [place] 1.000 Not Available [facility] cate [address], [place], [address], 02/22/2025 15:49:42 02/23/20 25 02/22/2025 urina lysis , dipst ick Ketone - Not Available [place] [address], [place], [address], 02/22/2025 15:49:42 02/23/20 25 02/22/2025 urina lysis , dipst ick Bilirubin - Not Available [facility] viola [address], [place], [address], 02/22/2025 15:49:42 02/23/20 25 02/22/2025 urina lysis , dipst ick Glucose - Not Available [place] [address], [place], [address], 02/22/2025 15:49:42 02/23/20 25 02/22/2025 urina lysis , dipst ick Appearance clear Not Available [facility] [address], [place], [address], 02/22/2025 15:49:42 02/23/20 25 02/22/2025 urina lysis , dipst ick Color light yellow Not Available [place] [address], [place], [address], 02/22/2025 15:49:42 03/27/20 25 03/27/2025 HBSAG /HCV/ HIV/R AL HIV antigen/anti body Nonrea ctive nonrea ctive HIV-1 antig en and HIV-1 /HIV- 2 antib odies were not detec laine. No labor atory evide nce of HIV infec tion. Not Available [facility] (Lab) [address], [place], [address], 03/29/2025 09:56:44 03/27/2003/27/2025 HBSAG /HCV/ HIV/R AL hepatitis B surface antigen Non-re active non-re active This assay was perfo rmed using [employer] ratio n reage nts and test kits. Value s obtai juana with other assay metho ds or kits canno t be used inter torres eably . Not Available [facility] (Lab) [address], [place], [address], 03/29/2025 09:56:44 03/27/2003/27/2025 HBSAG /HCV/ HIV/R AL hepatitis C antibody Non-re active non-re active Antib odies to HCV Not Detec laine, does not exclu de the possi bilit y of expos ure to HCV. Not Available [facility] (Lab) [address], [place], [address], 03/29/2025 09:56:44 03/27/20 25 03/27/2025 HBSAG /HCV/ HIV/R AL RPR qualitative Nonrea ctive nonrea ctive Not Available [facility] (Lab) [address] [place], [address], 03/29/2025 09:56:44 03/27/20 25 03/27/2025 VITAM IN D, 25-OH (TOTA L D2/D3 ) vitamin D, 25-hydroxy, total 34.9 NG/mL 30.0-1 00.0 : Routi ne : VAGIN AL Sugge stive of Defic iency : <20 ng/mL Sugge stive of Insuf ficie ncy: 20-29 ng/mL Sugge stive of Suffi cienc y: 30-10 0 ng/mL Sugge stive of Toxic ity: >150 ng/mL Not Available [facility] (Lab) [address], [place], [address], 03/29/2025 09:56:44 03/27/20 25 03/27/2025 IMAGE GUIDE D PAP AND HPV REGAR DLESS image guided Pap, HPV regardless of Pap result SEE RESULT S BELOW CASE REPOR T: Cytol ogy Gynec ologi migdalia Repor t Case: [id number] Autho marla g Provi ladi: Ivannao linda, Melisa , ANP, CLINIC LICENSED PRACTICAL NURSE Colle cted: 03/27 1011 Order ing Locat ion: [place] [facility] Recei ganesh: 03/28 0844 First Yosefe n: Ras Granger am, CT Speci men: Nishi willard Pap - Image d, Vagin a STATE MENT OF ADEQU ACY: Satis facto ry for evalu ation ----- ----- ----- ----- ----- ----- ----- ----- ----- ----- ----- ----- ----- ----- ----- ----- ----- ---- FINAL DIAGN OSIS: Negat amilcar for Intra epith elial Jas agudelo or Lokesh villa ([facility]) . Shift in bob sugge stive of bacte rial vagin osis. Elect lily shearer by Ras Granger am, CT on 025 at 0851 CDT ----- ----- ----- ----- ----- ----- ----- ----- ----- ----- ----- ----- ----- ----- ----- ----- ----- ---- HPV RESUL TS: HPV mRNA E6/E7 : No HPV mRNA Detec laine NOTE: This high risk HPV mRNA assay detec ts fourt een high- risk HPV types (16, 18, 31, 33, 35, 39, 45, 51, 52, 56, 58, 59, 66, 68) witho ut diffe renti ation . COMME NT: This speci men was revie wed by a Cytot echno logis t and/o r Patho logis t (as indic ated in this repor t) after evalu ation using the Thinp rep Imagi ng Syste m. CLINI MIGDALIA INFOR MATIO N: Menst rual Statu s: LMP (if appli cable ): Clini migdalia Histo ry/Pr eviou s Pap: Type of Neopl jan (if appli cable ): Signi fican t Clini migdalia Findi ngs: Other Histo ry: Hormo adele (if appli cable ): PAP EDUCA ROBEL L NOTE: The Pap Test is a scree sudheer test with an inher ent false negat amilcar rate. Liqui d-bas ed sampl ing may decre ase, but will not elimi sachin, false negat amilcar resul ts. A negat amilcar resul t does not precl ude the prese nce and/o r devel opmen t of disea se, since the prese nce of abnor mal cells in the sampl e depen ds on the locat ion of the lesio n and sampl ing techn ique. Franck nued regul ar scree sudheer is the best metho d of cance r preve ntion . If repor laine cytol ogic findi ng do not corre late with physi migdalia and/o r histo rical findi ngs, furth er inves tigat ion is recom kerry d, as clini max randle nted. Not Available [facility] (Lab) [address], [place], [address], 03/29/2025 09:56:45 03/27/20 25 03/27/2025 CT/GC AND TRICH OMONA S VAGIN JOLEEN (RRNA ), THINP REP VIAL CT/GC and trichomonas vaginalis (rrna), thinprep SEE RESULT S BELOW negati ve CHLAM YDIA TRACH OMATI S, PCR: Negat amilcar NEISS ERIA GONOR RHOEA E, PCR: Negat amilcar TRICH OMONA S VAGIN JOLEEN RIBOS OMAL RNA (RRNA ): Negat amilcar Not Available [facility] (Lab) [address], [place], [address], 03/29/2025 09:56:45 05/01/20 25 05/01/2025 US, santiago mendoza, bilat eral No observ ation record ed. [email or web address] [facility] [address], [place], [address], 05/02/2025 07:55:17 05/01/20 25 05/01/2025 US, santiago mendoza bilat eral No observ ation record ed. [facility] [address], [place], [address], 05/03/2025 10:27:29 06/22/20 25 06/22/2025 US, pelvi s No observ ation record ed. [email or web address] [address], [place], [address], 06/22/2025 21:12:46 06/22/20 25 06/22/2025 US, trans vagin al No observ ation record ed. [facility] [address], [place], [address], 06/22/2025 15:27:27 Result Notes None recorded. Procedures Surgical History Date Name Laterality Status Provider Name and Address Organization Details Recorded Time 01/08/20 24 TOTAL HYSTERECTOMY, LAPAROSCOPIC, WITH BILATERAL SALPINGECTOMY (SURG) completed Rachel Agarwal [facility] 01/13/2024 14:32:15 05/28/20 23 Date of Last Pap Smear completed Kera Booker [facility] 06/15/2023 09:31:12 09/21/19 19 Colposcopy completed Kera Booker [facility] 06/15/2023 09:32:45 09/21/19 19 Colposcopy completed Kera Booker [facility] 06/15/2023 09:35:24 09/21/19 17 procedure on heart completed [facility] 05/28/2023 10:22:29 09/21/19 10 cholecystectomy completed [facility] 06/15/2023 09:35:53 09/21/18 90 tonsilectomy/adeno ids completed [facility] 06/15/2023 09:35:35 09/21/18 86 procedure on heart valve completed [facility] 05/28/2023 10:22:18 Imaging Results None recorded. Procedure Notes None recorded. Medical Equipment None Reported. Allergies Allergen ID Allergen Name Allergen Category Reaction Reaction Severity Criticality Documentation Date Start Date Code Code System Note Provider Name and Address Organization Details Recorded Time 90913 ethinyl estradiol / levonorge strel medicatio n cough mild Not available 05/28/2023 29869 [id number] RxNorm [facility] 10:00:37 Medications Name Sig Start Date Stop Date Status Note LastModified by Organization Details LastModified Time binaxnow cov kit home sade 06/15 completed Not Available Not Available Not Available flowflex kit test 06/15 completed Not Available Not Available Not Available [facility] 2-pk kit covid-19 06/15 completed Not Available [...] TAKE 1 TABLET BY MOUTH ONCE DAILY 03/27 completed Not Available Not Available Not Available tolterodine ER 4 mg capsule,ext ended [...] Available Not Available sertraline 100 mg tablet TAKE 1 TABLET BY MOUTH ONCE DAILY active Not Available Not Available No t Available metronidazo le 500 mg tablet TAKE 1 TABLET BY MOUTH EVERY 12 HOURS FOR 7 DAYS active Not Available Not Available No t Available acyclovir 400 mg tablet TAKE 1 TABLET BY MOUTH TWICE DAILY 12/24 completed Not Available Not Available Not Available omeprazole 40 mg capsule,del ayed release TAKE 1 CAPSULE BY MOUTH ONCE DAILY NEEDED active Not Available Not Available No t Available acyclovir 800 mg tablet TAKE 1 TABLET BY MOUTH ONCE DAILY active Not Available Not Available No t Available famotidine 20 mg tablet TAKE 1 TABLET BY MOUTH TWICE DAILY active Not Available Not Available No t Available metoclopram roxann 5 mg tablet TAKE 1 TABLET BY MOUTH ONCE DAILY NEEDED active Not Available Not Available No t Available dicyclomine 20 mg tablet TAKE 1 TABLET BY MOUTH THREE TIMES DAILY NEEDED FOR ABDOMINAL PAIN active Not Available Not Available No t Available benzonatate 100 mg capsule TAKE 1 CAPSULE BY MOUTH THREE TIMES DAILY NEEDED FOR COUGH 01/06 completed Not Available Not Available Not [...] Not Available Not Available No t Available estradiol 0.01% (0.1 mg/gram) vaginal cream Insert 1 gram intravagi emilie nightly x 2 weeks, then twice weekly 2024 active Not Available Not Available Not Avai lable scopolamine 1 mg over [address] 1 PATCH ONTO THE SKIN EVERY THREE DAYS. DO NOT TOUCH YOUR EYES WHEN PLACE THE PATCH BEHIND THE EAR. active Not Available Not Available No t Available methylpredn isolone 4 mg tablets in a dose pack TAKE BY MOUTH DIRECTED ON INSIDE OF PACKAGE 01/06 completed Not Available Not Available Not Available albuterol sulfate HFA 90 mcg/actuati on aerosol inhaler INHALE 1 PUFF BY MOUTH 4 TIMES DAILY 02/22 completed Not Available Not Available Not Available fluticasone propionate 50 mcg/actuati on nasal [...] completed Not Available Not Available Not Available metoclopram roxann 10 mg tablet TAKE 1 TABLET BY MOUTH EVERY 6 HOURS NEEDED FOR NAUSEA AND VOMITING active Not Available Not Available No t [...] MOUTH EVERY 12 HOURS FOR 5 DAYS 03/27 completed Not Available Not Available Not Available Vitamin D 01/13 completed Not Available Not Available Not Available Acid Control (ranitidine ) 75 mg tablet 02/22 completed Not Available Not Available Not Available [...] mg/3 mL) subcutaneou s pen injector INJECT 0.25 MG SUBCUTANE OUSLY ONCE A WEEK active Not Available Not Available No t Available Vitals Date Recorded Body height Body mass index (BMI) Body weight Systolic And Diastolic Provider Name and Address Organization Details Last Updated DateTime 01/06/2025 167.64 cm 31.2 kg/m2 07952.33 g 123/75 mm[Hg] SHAYAN Solitario [facility] 01/06/2025 12:45:50 Date Recorded Body height Body mass index (BMI) Body weight Systolic And Diastolic Provider Name and Address Organization Details Last Updated DateTime 02/22/2025 167.64 cm 30.3 kg/m2 16866.37 g 110/71 mm[Hg] [facility] 02/22/2025 15:46:23 Date Recorded Body height Body mass index (BMI) Body weight Systolic And Diastolic Provider Name and Address Organization Details Last Updated DateTime 03/27/2025 167.64 cm 30 kg/m2 00066.18 g 110/72 mm[Hg] [facility] 03/27/2025 10:10:26 Date Recorded Body height Body mass index (BMI) Body weight Systolic And Diastolic Provider Name and Address Organization Details Last Updated DateTime 06/22/2025 167.64 cm 28.6 kg/m2 84084.85 g 122/77 mm[Hg] Carmela Cho [facility] 06/22/2025 12:49:50 Social History Question Answer Notes LastModified by Organizat ion Details LastModified Time Tobacco Smoking Status Never Smoker Kera matthews, [facility] 06/15/2023 09:35:14 Do You Have An Advance Directive? No Information n ot available 07/18/2024 How Many Years Have You Consumed Alcohol? 20 Information not available 05/28/2023 Are You Blind Or Do You Have Difficulty Seeing? No Information n ot available 05/28/2023 What Is Your Level Of Caffeine Consumption? Moderate Information not available 05/28/2023 How Much Tobacco Do You Chew? None Information not available 05/28/2023 In The 14 Days Before Symptom Onset, Have You Had Close Contact With A Laboratory-confirm ed COVID-19 While That Case Was Ill? No Information n ot available 05/28/2023 In The 14 Days Before [...] You Following? REGULAR Information n ot available 05/28/2023 What Is The Highest Grade Or Level Of School You Have Completed Or The Highest Degree You Have Received? [id number] Information not available 05/28/2023 Are There Any Guns Present In Your Home? No Information not available 05/28/2023 Have You Ever Been Counseled For Unhealthy Alcohol Use? No [email or web address] Information not available 06/15/2023 Do You Use [...] Has Tobacco Cessation Counseling Been Provided? No [email or web address] Information not available 06/15/2023 Have You Used IV Drugs? No Information not available 05/28/2023 Do You Have Difficulty Walking Or Climbing Stairs? No [email or web address] Information not available 06/15/2023 Sex: Unknown Functional Status Question Answer Note LastModified by Organizat ion Details LastModified Time Do you use any illicit or recreational drugs? Yes Information not available 05/28/2023 Do you or have you ever used any other forms of tobacco or nicotine? No Information not available 06/15/2023 What is your level of alcohol consumption? Occasional Information not available 05/28/2023 Are you able to walk independently without assistance or assistive devices? [email or web address] Information not available 05/28/2023 Are you able to care for yourself independently? 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 No [email or web address] Information not available 06/15/2023 What is your exercise level? Occasional Information not available 05/28/2023 Mental Status Question Answer Note LastModified by Organization D etails LastModified Time Do you feel stressed (tense, restless, nervous, or anxious, or unable to sleep at night)? [id number] [email or web address] Information not available 03/27/2025 Family History Relationship Description Onset Age of [...] (Food, seasonal, environmental ) Y Other N Drug/Latex Allergies/Reactions Y Blood Transfusion N Breast Cancer N Dermatologic Disorders N Lung Disease N Defects or Inherited Disease Y Breast Problem N Gestational Diabetes N Hematologic disorders N Anesthesia Complications N History of STI Y Deep Vein Thrombosis N Polycystic ovary syndrome Y Anxiety Disorder Y Autoimmune disease N Arthritis N Polyps N Infertility N Acid Reflux (GERD) Y History of abnormal pap Y Cancer N Varicosities N Stroke N Neurologic/Epilepsy N Endometriosis N High Cholesterol N Fibromyalgia N Headaches N Kidney Disease N Heart Problems Y Thyroid Problems N Kidney or Bladder Problems N GI Problems Y Eating Disorder [...] Diagnosis SNOMED-CT Code Diagnosis ICD10 Code Diagnosis IMO Codes Diagnosis Note [id number] Jake Humphreys MD [facility] [address] [address] 05/28/2023 09:54:29 05/28/2023 11:10:40 Dyspareunia 99820135 N94.10 30-year-ol d with severe dyspareuni a. [...] favoring a hysterecto my. Pain in pelvis 44857465 R10.2 Vaginal dryness 29460380 N89.8 [id number] Jake Humphreys MD [place] [address] [address] 06/11/2023 09:14:33 06/11/2023 09:51:48 Dyspareunia 68270375 N94.10 30-year-ol d with severe dyspareuni a. [...] options, patient is favoring a hysterecto my. [id number] Jake Humphreys MD [place] [address] [address] 06/15/2023 09:09:06 06/15/2023 12:54:30 Mixed anxiety and depressive disorder 307020059 F41.8 Herpes simplex 43198039 B00.9 Vitamin D deficiency 347 90998 E55.9 Contracept ion care management 101094294 Z30.9 Dyspareunia 60222792 N94 .10 this patient is a 38-year-ol [...] decision to perform surgery. Pain in pelvis 58741478 R10.2 Dysmenorrhea 681320620 N 94.6 [id number] Jake Humphreys MD [place] [address] [address] 11/20/2023 09:07:47 11/20/2023 10:21:52 Dysmenorrhea 885576025 N94.6 Dyspareunia 05384259 N94 .10 Lesion of endometrium 92 63026374 9101 N85.9 Menorrhagia 039553114 N9 2.0 This patient is a 38-year-ol [...] 50% of our Meeting was counseling . [id number] Jake Humphreys MD [place] [address] [address] 12/28/2023 16:49:29 12/29/2023 00:16:02 Menorrhagia 878968067 N92.0 this patient is a 30-year-ol d female with severe menorrhagi a. We have agreed to perform total laparoscop ic hysterecto my, bilateral salpingect subha, and right oophorecto my. She understand s risks, benefits, and alternativ es. She is completed the informed consent process and is ready to proceed. [id number] Jake Humphreys MD [facility] [address],[place] [address] 01/14/2024 09:42:58 01/14/2024 10:30:23 Postoperative care 940119783 Z48.89 female Patient presents for postop follow-up. She is 1 week postop from a total laparoscop ic hysterecto my bilateral salpingect subha. She has no complaints . Her incisions are clean dry and intact. She is recovering normally. She will follow-up as needed. [id number] Jake Humphreys MD [facility] [address] [address] 01/26/2024 12:35:54 01/27/2024 11:06:36 Urinary tract infectious disease 79883381 N39.0 [id number] Jake Humphreys MD [facility] [address] [address] 03/08/2024 09:40:27 03/08/2024 10:31:55 Postoperative pain 066603510 G89.18 38-year-ol d who is 8 weeks [...] 50% was counseling . She was examined. [id number] Jake Humphreys MD [facility] [address] [address] 04/07/2024 11:20:44 04/07/2024 12:51:08 Dysuria 08815597 R30.0 Chronic in terstitial cystitis 054045995 N30.10 Dyspareunia 93874774 N94 .10 this patient is a 39 old female presents for persistent postoperat amilcar dyspareuni a, urinary urgency, pain with a full bladder. She is symptoms of interstiti al cystitis. I [facility]. We will obtain pelvic ultrasound . We need to examine her existing ovary and pelvis. Her pain has improved with intercours e. It occurs after intercours e and persists for several hours. She is tender anterior vagina /bladder area. This was identified on a previous exam. I spent more than 20 minutes on her care. [id number] Jake Humphreys MD [facility] [address] [address] 04/21/2024 09:25:12 04/21/2024 10:02:12 Pain in pelvis 18095399 R10.2 [id number] Jake Humphreys MD [facility] [address] [address] 04/21/2024 09:25:35 04/21/2024 11:42:57 Dyspareunia 97164004 N94.10 this patient is a 39-year-ol d [...] needed. Look forward to Dr. Miller consult. [id number] NEEL CACERES MD [facility] [address] [address] 06/06/2024 11:32:49 06/06/2024 12:46:43 Postcoital bleeding 66965093 N93.0 - patient reports one episode of postcoital bleeding 2 weeks ago as well as 1 clot when house cleaning yesterday- no pain- exam significan t for small area of granulatio n tissue at vaginal cuff, cuff otherwise intact and normal- silver nitrate applied without issue Venereal d isease screening 135222111 Z11.3 - will send urine CT/GC/Tric h- blood testing ordered [id number] Jake Humphreys MD [facility] [address] [address] 07/18/2024 16:45:59 07/18/2024 17:36:52 Postcoital bleeding 86380436 N93.0 this patient is a 39-year-ol d [...] will contact us if there are problems. [id number] NEEL CACERES MD [facility] [address] [address] 10/07/2024 14:23:12 10/10/2024 10:33:28 Mass of left breast [id number] 8947968 N63.20 - new left breast mass since Thursday- not painful- no nipple discharge- no family hx of breast cancer- exam demonstrat es possible 2cm mass vs fibrocysti c tissue- diagnostic mammogram ordered Vaginitis [id number] N76.0 - thick white discharge and external irritation - swab sent- rx for diflucan sent [id number] Jake Humphreys MD [facility] [address] [address] 01/06/2025 12:30:39 01/09/2025 18:28:26 [id number] Jake Humphreys MD [facility] [address] [address] 02/22/2025 15:37:28 02/22/2025 16:03:34 Urinary system finding [id number] R39.9 [id number] Patient presents with symptoms of UTI. Results of dipstick were negative for UTI.Advise d to drink clear fluids, Tylenol for pain and take prescribed medication s as instructed . Patient encouraged to follow up within 1 week if not improving. Patient requests Diflucan pill to take after antibiotic s due to history of frequent yeast infections after finishing antibiotic s. Venereal d isease screening [id number] Z11.3 425162 Pt requested urine STI testing.Di scussed the various types of STDs, related symptoms and the potential consequenc es (including effects on fertility) of STD infections . Reviewed ways to limit exposure and prevention techniques . [id number] Jake Humphreys MD [facility] [address] [address] 03/27/2025 09:58:53 03/27/2025 10:48:12 Well woman health examination [id number] Z01.419 [id number] Annual gynecologi migdalia exam performed. Patient will come back in a year unless there are new symptoms. Suggest Calcium with Vitamin D if not eating in diet. Patient advised to get annual flu shot. Recommend yearly physicals and perform monthly breast exams. Genetic testing is available for patients with family history of cancer. Engage in safe sexual practices, use condoms. Encouraged to have daily exercise. Avoid tobacco and illicit drugs, moderation of alcohol. If BMI greater than 25 dietary consult advised. If you have any questions please call or email. mammogram- sees Dr. Mendoza for left breast lump found earlier this year in October; had dx mammogram, ultrasound , and MRI that showed likely benign cyst, has another mammogram scheduled in one month Pap smear- pap w/ HPV off vaginal cuff laboratory evaluation - PCP STI testing - requested Vaginal dryness [id number] N89.8 605159 Today we discussed Vag-E therapy along with VCG care changes to make (sheets h/o's given): Radiology Technician on Vaginal estrogen Therapy: Vaginal estrogen Vaginal estrogen is one of the most effective treatment options for vaginal dryness. Vaginal estrogen requires a prescripti on from your health care provider, so ask about this if lubricants and moisturize rs are not doing enough to relieve your symptoms. These therapies restore the topmost layer of vaginal cells and increase elasticity and connective tissue when used on a regular basis. (See 'Vaginal lubricants and moisturize rs' above.) Some people worry about possible side effects from hormones. Very low doses of estrogen can be used to treat vaginal dryness when it is in the form of a vaginal cream or insertable tablet, capsule, or ring. A small amount of estrogen is absorbed into the bloodstrea m with these vaginal forms, but when used regularly, the level of estrogen in the blood is in the same range as in postmenopa usal females who are not using vaginal estrogen. As a result, there is a much lower risk of the side effects people sometimes worry about, such as blood clots, breast cancer, and heart attack, compared with other estrogen-c ontaining products (eg, control pills, menopausal hormone therapy). R/B's and most common SEs were also reviewed with understand ing verbalized .Call if any insurance coverage issues. RTO x 3mos Vulvar/Med check Time spent in visit is a total of 30 mins with at least 50% of visit consisting of counseling and review of plan of care. Venereal d isease screening [id number] Z11.3 549371 Pt requested urine STI testing.Di scussed the various types of STDs, related symptoms and the potential consequenc es (including effects on fertility) of STD infections . Reviewed ways to limit exposure and prevention techniques . Vitamin D deficiency [id number] 37500 E55.9 80528 Hx of Vitamin D deficiency Will check levels today [id number] Jake Humphreys MD [facility] [address] [address] 06/22/2025 12:11:56 06/22/2025 13:15:34 Cyst of ovary 15851287 N83.209 [id number] This patient is a 40-year-ol d female presents for follow-up from the emergency department . She was in the emergency department for pain. Evaluation revealed ovarian cyst. It was thought to possibly be in torsion. Ultrasound was repeated today. No evidence of torsion or ischemia of the ovary was observed. There is a small hemorrhagi c ovarian cyst. We discussed the etiology, natural history, treatment of ovarian cyst. Spent over 20 minutes on her care in total. We agreed to observe. [id number] Jake Humphreys MD [facility] [address] [address] 06/22/2025 13:30:49 06/22/2025 13:47:30 Pain in pelvis 57361922 R10.20 347233 Health Concerns Section Related Observation LastModified by Organization Detai ls LastModified Time None Recorded Concern Status LastModified by Organization Details LastModified Time None Recorded Advance Directives Directive N: Payers Insurance Date Sequence Insurance Name Policy Number Policy Barton Covered Member ID Barton Member ID Guarantor Name 06/22/2025 2 [place] [employer] [place] [employer] Destini Dilallo [id number] Destini Dilallo 06/22/2025 2 [facility] PRIOR TO 04/21/2025 (MEDICAID REPLACEMENT - HMO) Destini Dilallo [id number] Destini Dilallo 06/22/2025 1 [facility] [id number] Destini Dilallo [id number] Destini Dilallo 07/18/2024 PAYMENT PLAN Destini Dilallo 07/05/2024 PAYMENT PLAN Destini Dilallo 06/22/2025 1 [facility] [id number] Destini M Dilallo 01 Destini Dilallo 06/22/2025 2 [place] [facility] Destini Dilallo [id number] Destini Dilallo Notes Date Note Type Note Provider Name and Address Organization Details Recorded Time 5 text/html 39 y/o female presents with c/o burning during and after urination.Denies frequency, urgency, or pelvic pressure.Patient states that she recently had new sexual partner and requests STI testing.Neg pain of abd/pelvis/flankNeg GI sx'sNeg N/V/F/C/DNeg Vag d/c, odor, irritation, itching MELISA ROWLAND NP [address], [place], [address], [facility] 02/22/2025 16:03:13 5 text/html Annual GYNReported by PatientGenitourinary symptomsFor urinary symptoms, patient reportsno hematuriaandno incontinence. For vulva, patient reportsno genital lesion. For vagina, patient reportsnormal vaginal discharge.Breast symptomsFor breast, patient reportsbreast lump (left breast lump - being monitored by breast specialist)but reportsno breast painandno nipple discharge.Endocrine symptomsFor menopausal symptoms, patient reportsinadequacy of lubrication of vaginal mucosabut reportsno menopausal symptoms. For sexual complaints, patient reportsno sexual complaints,no pain during intercourse, andnormal libido.Psychological symptomsFor psychological symptoms, patient reportsno depression,no anxiety, andno pmdd.Preventative measuresFor preventive measures, patient reportsencourage self breast examination,encourage regular exercise,encourage no tobacco use, andencourage regular mammograms starting age 40. Patient presents for annual well woman exam. Patient reports worsening vaginal dryness since hysterectomy with RSO in 2023. Apoorva matthews, [facility] 03/27/2025 12:45:54 5 text/html This patient is a 40-year-old female presents for follow-up from the emergency department. She was in the emergency department for pain. Evaluation revealed ovarian cyst. It was thought to possibly be in torsion. Ultrasound was repeated today. No evidence of torsion or ischemia of the ovary was observed. There is a small hemorrhagic ovarian cyst. We discussed the etiology, natural history, treatment of ovarian cyst. Spent over 20 minutes on her care in total. We agreed to observe. Jake Humphreys MD [address], [place], [address], [facility] 06/22/2025 18:13:20 OBGyn Episode Ob Episode Information Episode Created Date Number of Fetuses Patient Bloodtype Patient rh Status Prepregnancy Weight lbs Domestic Partner Domestic Partner Phone Father Name Senior Instructional Designer Status 06/15/20 23 1 CLOSED Fetus Data First Name Last Name Admitted to NICU Weight (g) Sex Living Outcome Pediatric Complications Fetus ID Race Codes Race Delivery Type 4167.14 9704 M Full Term 11130 Vaginal Delivery Gilberto Calculation Initial Gilberto Date [...] Domestic Partner Domestic Partner Phone Father Name Senior Instructional Designer Status 06/15/20 23 1 CLOSED Fetus Data First Name Last Name Admitted to NICU Weight (g) Sex Living Outcome Pediatric Complications Fetus ID Race Codes Race Delivery Type 3713.55 7704 F Full Term 03796 Vaginal Delivery Gilberto Calculation Initial Gilberto Date [...]
== END 2025-08-02 07:57 | disposition home or self-care (01) ==
LOC: ANHSURGERY 07:58
PROVIDERS: PCP Internal Medicine; Visit Provider Obstetrics & Gynecology
DX: Z01.818 Encounter for other preprocedural examination (principal); E11.9 Type 2 diabetes mellitus without complications; N83.202 Unspecified ovarian cyst, left side
CPT/HCPCS: 36415; 86850; 86900; 86901; 93005

== ENCOUNTER 2025-08-10 01:01 | Day surgery (SDC) | payer OTHER, SELFPAY ==
[2025-07-26 16:17] VITALS: BMI 29.1
--- NOTE | 2025-07-26 16:45 | PC.NURSE ---
[facility] has started construction of its new state of the art ER which will open Spring 2026. With this, we anticipate parking may be a challenge for some our surgical patients and families. Parking spaces are limited but are available for all Surgical, obstetrics, and ER patients sharing this lot. If you arrive and find you are having a hard time finding a parking space, please note that we understand the challenges, please drive around the hospital and park near Hospital Entrance 1. When you enter this entrance, you can ask a volunteer to direct or take you back to the surgical waiting area to check in. We appreciate everyone?s understanding of these expected challenges while we build for your future. Report to the Outpatient Waiting Room, entrance under the green pavilion located off [address], at 1000 on 08-10-25. Planned Procedure Time: 1200.? Time changes happen often and if your time is changed the preop area will call you the afternoon before. - You and your visitor will be asked to self-screen and do not enter if you have any COVID symptoms. Please call surgeon if you need to reschedule. - A mask is optional within the hospital at this time. Patients may have clear liquids (water, carbonated beverages, clear teas, apple juice) until 3 hours prior to surgery with a maximum of 20 ounces. 0900 - No food from midnight until time of surgery and no smoking, or chewing tobacco (or any form of nicotine). No chewing gum, candy or mints. - Infants may have breast milk until 4 hours before surgery, formula 6 hours prior to surgery. - Children will be allowed to drink immediately following surgery.? If applicable, please bring a bottle or sippy cup to assist with drinking. Juice, water, soda, and popsicles are readily available.? For infants on formula, please bring formula the day of surgery.? Pacifiers are allowed. Take only the following medications with a SIP of water on the morning of surgery: (Patient takes all meds at night); NONE DO NOT STOP ANY OF YOUR OTHER PRESCRIPTION MEDICATIONS PRIOR TO SURGERY EXCEPT THE FOLLOWING Hold all vitamins and supplements for 3 days per anesthesiologist. (08-07-25) Medications to discontinue per physician: Ozempic and aspirin Date to take last dose: Per Dr. Dinora Ybarra's instructions Please no make-up, nail amharic, hairspray, perfume, deodorant, or body powder the day of surgery.? No jewelry (including any body piercings) or valuables the day of surgery, leave them at home.? Please take a shower or bath the night before, or the morning of, surgery with an antibacterial soap.? Wear comfortable, loose fitting clothing.? Children are encouraged to wear pajamas. - Jewelry must be removed prior to entering the operating room.? Rings and piercings that are not removed may be cut off. - The hospital will not accept responsibility for valuables.? - Please leave all valuables, including medications, at home the day of surgery. If you are going home after surgery, a licensed ups driver must drive you home.? - NO public transportation without another adult if you receive anesthesia. - We recommend that an adult stay with you for 24 hours following discharge. - We also recommend that you do not drive, make important decision, drink alcoholic beverages, or take any drugs that were not prescribed by your health care provider for at least 24 hours after your discharge time. For Pediatric surgeries, we recommend two adults accompany the child home. Follow any additional instructions given to you from your surgeon. Telephone instructions given to and asked if any additional questions and then verbalized understanding. Patient advised to call surgeon office or pre surgery nurse liaison [phone] if any additional questions.
--- OUTSIDE RECORDS SUMMARY | 2025-08-07 02:39 | XMS_ITS | Continuity of Care Document ---
Author Organization [facility] Address [address] [place] [address] Phone Care Team Providers Care Parts Counter Representative Name Role Phone Zion TYLER, FACBasilio Unavailable [...] Diagnoses Date Provider Providers Copied on Encounter [facility], [facility] [place], [place], [id number] , tel: [phone] SL [place] No Information 5 Zion Richmond. [address] [place] [address], [place], [place], [id number] , [place]. tel: [phone] OFFICE/OUTPA TIENT VISIT, EST [facility], [address] [place] [address], [id number] , tel: [phone] [facility] [place] follow up (chief complaint) Essential (primary) hypertensionObesity, unspecifiedOther fatiguePrediabetesSle ep apnea, unspecifiedStenosis of pulmonary artery 5 Zion Richmond. [address] [place], [place], [id number] , [place]. tel: [phone] Referring Provider: Alida Klein, [address], [place], [address]. tel:[phone] [facility], [address] [place] [address], [id number] , tel: [phone] [facility] [place] No Information Zion Richmond. [facility] [address] [place], [place], [id number] , . tel: [phone] [facility], [address] [place] [address], [id number] , tel: [phone] [facility] [place] Stenosis of pulmonary arteryFatigueHTNEdema ObesityPrediabetesSle ep apnea 5 Zion Richmond. [facility] [address] [place], [place], [id number] , . tel: [phone] Family History Family Member Type Diagnosis Age At Onset No Information Payers Payer name Insurance type Covered libertarian ID Niesha couch(s) [facility] CI [id number] Social History Type Description Quantity Date Captured Comments Alcohol Use Details Unknown Caffeine Use Details Unknown Tobacco Use Status No Information Smoking Status No Information Sex Female Chief Complaint And Reason For Visit No Information Reason For Referral Reason For Referral No Information History Of Present Illness Encounter Date Complaint History Of Prese nt Illness follow up Functional Status Date Functional Assessmen t No Information Instructions Date Instruction Additional Infor mation No Information Assessments Type Assessment Date No Information Patient Care Teams Name Effective Dates (start - stop) Status Members No Information
--- OUTSIDE RECORDS SUMMARY | 2025-08-07 02:39 | XMS_ITS | Continuity of Care Document ---
Author Organization [facility] Address [address] [place] [address] Phone Care Team Providers Care Commercial Loan Administrator Name Role Phone Zion TYLER, FACBasilio Unavailable [...] Diagnoses Date Provider Providers Copied on Encounter [facility], [facility] [place], [place], [id number] , tel: [phone] [place] No Information 5 Zion Richmond. [address] [place] [address], [place], [place], [id number] , [place]. tel: [phone] OFFICE/OUTPA TIENT VISIT, EST [facility], [address] [place] [address], [id number] , tel: [phone] [facility] [place] follow up (chief complaint) Essential (primary) hypertensionObesity, unspecifiedOther fatiguePrediabetesSle ep apnea, unspecifiedStenosis of pulmonary artery 5 Zion Richmond. [address] [place], [place], [id number] , [place]. tel: [phone] Referring Provider: Alida Klein, [address], [place], [address]. tel:[phone] [facility], [address] [place] [address], [id number] , tel: [phone] [facility] [place] No Information Zion Richmond. [facility] [place], [place], [address] , . tel: [phone] [facility], [address] [place] [address], [id number] , tel: [phone] [facility] [place] Stenosis of pulmonary arteryFatigueHTNEdema ObesityPrediabetesSle ep apnea 5 Zion Richmond. [facility] [place], [place], [id number] , . tel: [phone] Family History Family Member Type Diagnosis Age At Onset No Information Payers Payer name Insurance type Covered constitution party ID Niesha couch(s) [facility] CI [id number] Social History Type Description Quantity Date Captured [...]
--- OUTSIDE RECORDS SUMMARY | 2025-08-07 02:39 | XMS_ITS | Continuity of Care Document ---
Author Organization [facility] Address [address] [place] [address] Phone Care Team Providers Care Cardiac Sonographer Name Role Phone Zion TYLER, FACBasilio Unavailable [...] Diagnoses Date Provider Providers Copied on Encounter [facility], [facility] [place], [place], [id number] , tel: [phone] [facility] [place] No Information 5 Zion Richmond. [address] [place] [address], [place], [place], [id number] , [place]. tel: [phone] OFFICE/OUTPA TIENT VISIT, EST [facility], [address] [place] [address], [id number] , tel: [phone] [facility] [place] follow up (chief complaint) Essential (primary) hypertensionObesity, unspecifiedOther fatiguePrediabetesSle ep apnea, unspecifiedStenosis of pulmonary artery 5 Zion Richmond. [address] [place], [place], [id number] , [place]. tel: [phone] Referring Provider: Alida Klein, [address], [place], [address]. tel:[phone] [facility], [address] [place] [address], [id number] , tel: [phone] [facility] [place] No Information Zion Richmond. [facility] [place], [place], [id number] , . tel: [phone] [facility], [address] [place] [address], [id number] , tel: [phone] [facility] [place] Stenosis of pulmonary arteryFatigueHTNEdema ObesityPrediabetesSle ep apnea 5 Zion Richmond. [facility] [place], [place], [address] , . tel: [phone] Family History Family Member Type Diagnosis Age At Onset No Information Payers Payer name Insurance type Covered constitution party ID Niesha couch(s) [facility] CI [id number] Social History Type Description Quantity Date Captured [...]
--- OUTSIDE RECORDS SUMMARY | 2025-08-07 02:39 | XMS_ITS | Continuity of Care Document ---
Author Organization [facility] Address [address] [place] [address] Phone Care Team Providers Care Makeup Instructor Name Role Phone Zion TYLER, FACBasilio Unavailable [...] Diagnoses Date Provider Providers Copied on Encounter [facility], [facility] [place], [place], [id number] , tel: [phone] SL [place] No Information 5 Zion Richmond. [address] [place] [address], [place], [place], [id number] , [place]. tel: [phone] OFFICE/OUTPA TIENT VISIT, EST [facility], [address] [place] [address], [id number] , tel: [phone] [facility] [place] follow up (chief complaint) Essential (primary) hypertensionObesity, unspecifiedOther fatiguePrediabetesSle ep apnea, unspecifiedStenosis of pulmonary artery 5 Zion Richmond. [address] [place], [place], [address] , [place]. tel: [phone] Referring Provider: Alida Klein, [address], [place], [address]. tel:[phone] [facility], [address] [place] [address], [id number] , tel: [phone] [facility] [place] No Information Zion Richmond. [facility] [place], [place], [address] , . tel: [phone] [facility], [address] [place] [address], [id number] , tel: [phone] [facility] [place] Stenosis of pulmonary arteryFatigueHTNEdema ObesityPrediabetesSle ep apnea 5 Zion Richmond. [facility] [place], [place], [address] , . tel: [phone] Family History Family Member Type Diagnosis Age At Onset No Information Payers Payer name Insurance type Covered republican ID Niesha couch(s) [facility] CI [id number] Social History Type Description Quantity Date Captured [...]
--- OUTSIDE RECORDS SUMMARY | 2025-08-07 02:39 | XMS_ITS | Continuity of Care Document ---
Author Organization [facility] Address [address] [place] [address] Phone Care Team Providers Care Chief Of Party Name Role Phone Zion TYLER, FACBasilio Unavailable [...] Diagnoses Date Provider Providers Copied on Encounter [facility], [facility] [place], [place], [id number] , tel: [phone] SL [place] No Information 5 Zion Richmond. [address] [place] [address], [place], [place], [id number] , [place]. tel: [phone] OFFICE/OUTPA TIENT VISIT, EST [facility], [address] [place] [address], [id number] , tel: [phone] [facility] [place] follow up (chief complaint) Essential (primary) hypertensionObesity, unspecifiedOther fatiguePrediabetesSle ep apnea, unspecifiedStenosis of pulmonary artery 5 Zion Richmond. [address] [place], [place], [id number] , [place]. tel: [phone] Referring Provider: Alida Klein, [address], [place], [address]. tel:[phone] [facility], [address] [place] [address], [id number] , tel: [phone] [facility] [place] No Information Zion Richmond. [facility] [place], [place], [address] , . tel: [phone] [facility], [address] [place] [address], [id number] , tel: [phone] [facility] [place] Stenosis of pulmonary arteryFatigueHTNEdema ObesityPrediabetesSle ep apnea 5 Zion Richmond. [facility] [place], [place], [address] , . tel: [phone] Family History Family Member Type Diagnosis Age At Onset No Information Payers Payer name Insurance type Covered green party ID Niesha couch(s) [facility] CI [id number] Social History Type Description Quantity Date Captured [...]
--- OUTSIDE RECORDS SUMMARY | 2025-08-07 02:39 | XMS_ITS | Continuity of Care Document ---
Author Organization [facility] Address [address] [place] [address] Phone Care Team Providers Care Box Spring Frame Builder Name Role Phone Zion TYLER, FACBasilio Unavailable [...] Diagnoses Date Provider Providers Copied on Encounter [facility], [facility] [place], [place], [id number] , tel: [phone] SL [place] No Information 5 Zion Richmond. [address] [place] [address], [place], [place], [id number] , [place]. tel: [phone] OFFICE/OUTPA TIENT VISIT, EST [facility], [address] [place] [address], [id number] , tel: [phone] [facility] [place] follow up (chief complaint) Essential (primary) hypertensionObesity, unspecifiedOther fatiguePrediabetesSle ep apnea, unspecifiedStenosis of pulmonary artery 5 Zion Richmond. [address] [place], [place], [id number] , [place]. tel: [phone] Referring Provider: Alida Klein, [address], [place], [address]. tel:[phone] [facility], [address] [place] [address], [id number] , tel: [phone] [facility] [place] No Information Zion Richmond. [facility] [place], [place], [id number] , . tel: [phone] [facility], [address] [place] [address], [id number] , tel: [phone] [facility] [place] Stenosis of pulmonary arteryFatigueHTNEdema ObesityPrediabetesSle ep apnea 5 Zion Richmond. [facility] [place], [place], [id number] , . tel: [phone] Family History Family Member Type Diagnosis Age At Onset No Information Payers Payer name Insurance type Covered libertarian ID Niesha couch(s) [facility] CI [id number] Social History Type Description Quantity Date Captured [...]
--- OUTSIDE RECORDS SUMMARY | 2025-08-07 02:39 | XMS_ITS | Continuity of Care Document ---
Author Organization [facility] Address [address] [place] [address] Phone Care Team Providers Care Lei Maker Name Role Phone Zion TYLER, FACBasilio Unavailable [...] Diagnoses Date Provider Providers Copied on Encounter [facility], [facility] [place], [place], [id number] , tel: [phone] SL [place] No Information 5 Zion Richmond. [address] [place] [address], [place], [place], [id number] , [place]. tel: [phone] OFFICE/OUTPA TIENT VISIT, EST [facility], [address] [place] [address], [id number] , tel: [phone] [facility] [place] follow up (chief complaint) Essential (primary) hypertensionObesity, unspecifiedOther fatiguePrediabetesSle ep apnea, unspecifiedStenosis of pulmonary artery 5 Zion Richmond. [address] [place], [place], [id number] , [place]. tel: [phone] Referring Provider: Alida Klein, [address], [place], [address]. tel:[phone] [facility], [address] [place] [address], [id number] , tel: [phone] [facility] [place] No Information Zion Richmond. [facility] [address] [place], [place], [id number] , . tel: [phone] [facility], [address] [place] [address], [id number] , tel: [phone] [facility] [place] Stenosis of pulmonary arteryFatigueHTNEdema ObesityPrediabetesSle ep apnea 5 Zion Richmond. [facility] [address] [place], [place], [id number] , . tel: [phone] Family History Family Member Type Diagnosis Age At Onset No Information Payers Payer name Insurance type Covered green party ID Niesha couch(s) [facility] CI [id number] Social History Type Description Quantity Date Captured [...]
--- OUTSIDE RECORDS SUMMARY | 2025-08-07 02:39 | XMS_ITS | Continuity of Care Document ---
Author Organization [facility] Address [address] [place] [address] Phone Care Team Providers Care Supervisor Electric Motor Testing Name Role Phone Zion TYLER, FACBasilio Unavailable [...] Diagnoses Date Provider Providers Copied on Encounter [facility], [facility] [place], [place], [id number] , tel: [phone] [place] No Information 5 Zion Richmond. [address] [place] [address], [place], [place], [id number] , [place]. tel: [phone] OFFICE/OUTPA TIENT VISIT, EST [facility], [address] [place] [address], [id number] , tel: [phone] [facility] [place] follow up (chief complaint) Essential (primary) hypertensionObesity, unspecifiedOther fatiguePrediabetesSle ep apnea, unspecifiedStenosis of pulmonary artery 5 Zion Richmond. [address] [place], [place], [id number] , [place]. tel: [phone] Referring Provider: Alida Klein, [address], [place], [address]. tel:[phone] [facility], [address] [place] [address], [id number] , tel: [phone] [facility] [place] No Information Zion Richmond. [facility] [place], [place], [id number] , . tel: [phone] [facility], [address] [place] [address], [id number] , tel: [phone] [facility] [place] Stenosis of pulmonary arteryFatigueHTNEdema ObesityPrediabetesSle ep apnea 5 Zion Richmond. [facility] [place], [place], [id number] , . tel: [phone] Family History Family Member Type Diagnosis Age At Onset No Information Payers Payer name Insurance type Covered democrat ID Niesha couch(s) [facility] CI [id number] Social History Type Description Quantity Date Captured [...]
--- OUTSIDE RECORDS SUMMARY | 2025-08-07 02:39 | XMS_ITS | Continuity of Care Document ---
Author Organization [facility] Address [address] [place] [address] Phone Care Team Providers Care Premium Auditor Name Role Phone Zion TYLER, FACBasilio Unavailable [...] Diagnoses Date Provider Providers Copied on Encounter [facility], [facility]0 [place], [place], [id number] , tel: [phone] [place] No Information 5 Zion Richmond. [address] [place] [address], [place], [place], [id number] , [place]. tel: [phone] OFFICE/OUTPA TIENT VISIT, EST [facility], [address] [place] [address], [id number] , tel: [phone] [facility] [place] follow up (chief complaint) Essential (primary) hypertensionObesity, unspecifiedOther fatiguePrediabetesSle ep apnea, unspecifiedStenosis of pulmonary artery 5 Zion Richmond. [address] [place], [place], [id number] , [place]. tel: [phone] Referring Provider: Alida Klein, [address], [place], [address]. tel:[phone] [facility], [address] [place] [address], [id number] , tel: [phone] [facility] [place] No Information Zion Richmond. [facility] [place], [place], [id number] , . tel: [phone] [facility], [address] [place] [address], [id number] , tel: [phone] [facility] [place] Stenosis of pulmonary arteryFatigueHTNEdema ObesityPrediabetesSle ep apnea 5 Zion Richmond. [facility] [place], [place], [id number] , . tel: [phone] Family History Family Member Type Diagnosis Age At Onset No Information Payers Payer name Insurance type Covered democrat ID Niesha couch(s) [facility] CI [id number] Social History Type Description Quantity Date Captured [...]
--- OUTSIDE RECORDS SUMMARY | 2025-08-07 02:39 | XMS_ITS | Continuity of Care Document ---
Author Organization [facility] Address [address] [place] [address] Phone Care Team Providers Care Hand Tacker Name Role Phone Zion TYLER, FACBasilio Unavailable [...] Diagnoses Date Provider Providers Copied on Encounter [facility], [facility] [place], [place], [id number] , tel: [phone] [facility] [place] No Information 5 Zion Richmond. [address] [place] [address], [place], [place], [id number] , [place]. tel: [phone] OFFICE/OUTPA TIENT VISIT, EST [facility], [address] [place] [address], [id number] , tel: [phone] [facility] [place] follow up (chief complaint) Essential (primary) hypertensionObesity, unspecifiedOther fatiguePrediabetesSle ep apnea, unspecifiedStenosis of pulmonary artery 5 Zion Richmond. [address] [place], [place], [id number] , [place]. tel: [phone] Referring Provider: Alida Klein, [address], [place], [address]. tel:[phone] [facility], [address] [place] [address], [id number] , tel: [phone] [facility] [place] No Information Zion Richmond. [facility] [place], [place], [id number] , . tel: [phone] [facility], [address] [place] [address], [id number] , tel: [phone] [facility] [place] Stenosis of pulmonary arteryFatigueHTNEdema ObesityPrediabetesSle ep apnea 5 Zion Richmond. [facility] [place], [place], [id number] , . tel: [phone] Family History Family Member Type Diagnosis Age At Onset No Information Payers Payer name Insurance type Covered libertarian ID Niesha couch(s) [facility] CI [id number] Social History Type Description Quantity Date Captured [...]
--- OUTSIDE RECORDS SUMMARY | 2025-08-07 02:39 | XMS_ITS | Continuity of Care Document ---
Author Organization [facility] Address [address] [place] [address] Phone Care Team Providers Care Gyroscopic Engineering Technician Name Role Phone Zion TYLER, FACBasilio Unavailable [...] Diagnoses Date Provider Providers Copied on Encounter [facility], [facility] [place], [place], [id number] , tel: [phone] [facility] [place] No Information 5 Zion Richmond. [address] [place] [address], [place], [place], [id number] , [place]. tel: [phone] OFFICE/OUTPA TIENT VISIT, EST [facility], [address] [place] [address], [id number] , tel: [phone] [facility] [place] follow up (chief complaint) Essential (primary) hypertensionObesity, unspecifiedOther fatiguePrediabetesSle ep apnea, unspecifiedStenosis of pulmonary artery 5 Zion Richmond. [address] [place], [place], [address] , [place]. tel: [phone] Referring Provider: Alida Klein, [address], [place], [address]. tel:[phone] [facility], [address] [place] [address], [id number] , tel: [phone] [facility] [place] No Information Zion Richmond. [facility] [place], [place], [address] , . tel: [phone] [facility], [address] [place] [address], [id number] , tel: [phone] [facility] [place] Stenosis of pulmonary arteryFatigueHTNEdema ObesityPrediabetesSle ep apnea 5 Zion Richmond. [facility] [place], [place], [address] , . tel: [phone] Family History Family Member Type Diagnosis Age At Onset No Information Payers Payer name Insurance type Covered green party ID Niesha couch(s) [facility] CI [id number] Social History Type Description Quantity Date Captured [...]
--- NOTE | 2025-08-08 07:34 | PM.IMHP ---
H&P: HPI History of Present Illness Date/Time: 08/08/25 07:34 Chief Complaint: Pelvic pain left ovarian cyst Narrative: This is a 40-year-old female status post hysterectomy and right salpingo-oophorectomy admitted for laparoscopy left cystectomy and possible left salpingo-oophorectomy she had pain discomfort has been going on for over 6 months she was told the past she had endometriosis. Risks and benefits of this procedure reviewed including but not exclusive of , aspiration pneumonia, bleeding, transfusion, perforation injury to bowel, bladder, ureters, or other internal organs with need for laparotomy. She received the [employer] handout entitled laparoscopy. She had all questions answered. She asked to proceed. Review of Systems Review of Systems: Pertinent positives per HPI. Patient denies any fever, chills, rash, headache, visual changes, dizziness, cough, runny nose, sore throat, shortness of breath, chest pain, palpitations, nausea, vomiting, diarrhea, constipation, abdominal pain, or any urinary issues. [facility] Past Medical History Medical History Interstitial cystitis Pulmonary stenosis Depression with anxiety GERD (gastroesophageal reflux disease) Hx of pulmonary artery stenosis Surgical History Surgical History Pulmonary valve replaced Hx of cholecystectomy Hx of mitral valve replacement Hx of tonsillectomy Family History Family History Father Diabetes mellitus Lung cancer Social History Social History Smoking status: Never smoker Second hand tobacco smoke exposure: No Alcohol intake: current Alcohol use details: socially Substance use: current Substance use type: marijuana Other substance usage details: daily use both edibles and smoking Do You Feel Safe in your Home?: Yes Lack of Transportation: No Lack of Food: Sometimes True Current Housing: I Have Housing Concerned About Future Housing: No Difficulty Paying Gas/Electric Bills: YES Difficulty Paying for Meds: YES Currently Unemployed: No Education: High School Diploma/GED Living arrangements: alone Gender identity (if verbalized by the patient): Female Spiritual care concerns: No Meds Home Medications and Allergies Home Medications ?Medication ?Instructions ?Recorded ?Confirmed ?Type aspirin 81 mg tablet,delayed 81 mg PO DAILY 05/06/20 07/26/25 History release (Adult Low Dose Aspirin) ergocalciferol (vitamin D2) 1,250 1,250 mcg PO WEEKLY 05/06/20 07/26/25 History mcg (50,000 unit) capsule (Vitamin D2) acyclovir 800 mg tablet 800 mg PO HS 01/01/25 07/26/25 History oxybutynin chloride 10 mg 10 mg PO HS 01/01/25 07/26/25 History tablet,extended release 24 hr sertraline 100 mg tablet 50 mg PO QHS 01/19/25 07/26/25 History metoclopramide HCl 10 mg tablet 10 mg PO Q6H PRN nausea and 06/13/25 07/26/25 Rx (Reglan) vomiting #14 tabs omeprazole 40 mg capsule,delayed 40 mg PO HS 07/26/25 07/26/25 History release semaglutide 0.25 mg or 0.5 mg (2 0.25 mg subcut WEEKLY 07/26/25 07/26/25 History mg/3 mL) subcutaneous pen injector (Ozempic) Allergies Allergy/AdvReac Type Severity Reaction Status Date / Time Ashe And Derivatives AdvReac Mild Nausea and Verified 07/26/25 16:02 Vomiting Exam Const: General: cooperative, healthy appearing and comfortable Nutritional Appearance: average body habitus Orientation/consciousness: oriented to person, oriented to place and oriented to time HENMT: Head: normal to inspection Resp: Effort & Inspection: normal respiratory effort Cardio: Rate: regular rate Rhythm: regular rhythm Heart sounds: S1 normal heart sound present and S2 normal heart sound present GI: Inspection: normal to inspection : External Female Exam: normal external appearance Speculum Exam - Vagina: normal appearance of the vagina Speculum Exam - Cervix: Cervix absent Bimanual exam- vagina & uterus: uterus absent Bimanual Exam- Adnexa, other: tender on the left Assessment and Plan Assessment and plan (1) Ovarian cyst: Code(s): N83.209 - Unspecified ovarian cyst, unspecified side Status: Acute Plan Proceed with laparoscopy and left ovarian cystectomy possible left salpingo-oophorectomy
[2025-08-10] VITALS (9 sets, daily range): BP systolic 110–136; BP diastolic 49–70; PULSE 66–86; RESP 16–23; TEMP 36.4–36.9; O2SAT 98–100; BMI 29.7
--- OUTSIDE RECORDS SUMMARY | 2025-08-10 02:05 | XMS_ITS | Continuity of Care Document ---
Author Organization [facility] Address [address] [place] [address] Care Team Providers Care Vessel Master Name Role Phone MONICA PERALTA Primary Care Provider Assessment No assessment recorded. Plan of Treatment Reminders Order Date Submit Date Provider Last Modified By Organization Details Last Modified Time Details Appointments None recorded. Lab None recorded. Referral None recorded. Procedures None recorded. Surgeries None recorded. Imaging US, transvagina l 2024 025 [email or web address] [facility], [address], [address], [place], [address], 17:51:03 Medication Orders None recorded. Patient TargetsNo targets recorded. Patient InstructionsNo instructions recorded. Reason for Referral None Reported. Results Created Date Observation Date Name Description Value Unit Range Abnormal Flag Note LastModifiedBy Organization Detail LastModifiedTime 06/22/2006/22/2025 US, pelvi s No observ ation record ed. [email or web address] [facility] [address], [place], [address], 06/22/2025 21:12:46 06/22/2006/22/2025 , trans vagin al No observ ation record ed. [facility] [address], [place], [address], 06/22/2025 15:27:27 Result Notes None recorded. Procedures Surgical History Date Name Laterality Status Provider Name and Address Organization Details Recorded Time 01/08/20 24 TOTAL HYSTERECTOMY, LAPAROSCOPIC, WITH BILATERAL SALPINGECTOMY (SURG) completed Rachel Agarwal [facility] 01/13/2024 14:32:15 05/28/20 23 Date of Last Pap Smear completed [facility] 06/15/2023 09:31:12 09/21/19 19 Colposcopy completed [facility] 06/15/2023 09:32:45 09/21/19 19 Colposcopy completed [facility] 06/15/2023 09:35:24 09/21/19 17 procedure on heart completed [facility] 05/28/2023 10:22:29 09/21/19 10 cholecystectomy completed [facility] 06/15/2023 09:35:53 09/21/18 90 tonsilectomy/adeno ids completed [facility] 06/15/2023 09:35:35 09/21/18 86 procedure on heart valve completed [facility] 05/28/2023 10:22:18 Imaging Results None recorded. Procedure Notes None recorded. Medical Equipment None Reported. Allergies Allergen ID Allergen Name Allergen Category Reaction Reaction Severity Criticality Documentation Date Start Date Code Code System Note Provider Name and Address Organization Details Recorded Time ethinyl estradiol / levonorge strel medicatio n cough mild Not available 05/28/2023 79346 8 RxNorm Shweta [facility] 3 10:00:37 42684 citrus bioflavon oids food,medi cation Not available Not available low 08/07/20252024 10950 2 RxNorm unrec ogniz ed react ion (text : Nause a and Vomit ing, code: [id number]) (from exter nal sourc e) Not Available claire - External Data Service - prod 08:56:05 62100 butylscop olamine bromide Not available Not available Not available Not available 08/07/20252024 1851 RxNorm unrec ogniz ed react ion (text : Blurr ed visio n, code: [id number]) (from [facility] e) Not Available claire - External Data Service - prod 08:56:05 Medications Name Sig Start Date Stop Date [...] No t Available acyclovir 800 mg tablet Take 1 tablet by mouth once daily 2024 active Not Available Not Available Not Avai lable famotidine 20 mg tablet TAKE 1 TABLET [...] Updated DateTime 06/22/2025 167.64 cm 28.6 kg/m2 02036.85 g 122/77 mm[Hg] Carmela hCo [facility] 06/22/2025 12:49:50 Social History Question Answer Notes LastModified by Organizat ion Details LastModified Time Tobacco Smoking Status Never Smoker Kera matthews, [facility] 06/15/2023 09:35:14 Do You Have An [...] Or The Highest Degree You Have Received? [id number] Information not available 05/28/2023 Are There Any Guns Present In Your Home? No Information not available 05/28/2023 Have You Ever Been Counseled For Unhealthy Alcohol Use? No [email or web address] Information not available 06/15/2023 Do You Use [...] Has Tobacco Cessation Counseling Been Provided? No [email or web address] Information not available 06/15/2023 Have You Used IV Drugs? No Information not available 05/28/2023 Do You Have Difficulty Walking Or Climbing Stairs? No [email or web address] Information not available 06/15/2023 Sex: Unknown Functional Status Question Answer Note LastModified by Organizat ion Details LastModified Time Do you use any illicit or recreational drugs? Yes Information not available 05/28/2023 Do you or have you ever used any other forms of tobacco or nicotine? No [email or web address] Information not available 06/15/2023 What is your level of alcohol consumption? Occasional Information not available 05/28/2023 Are you able to walk independently without assistance or assistive devices? YESWOREST Information not available 05/28/2023 Are you able to care for yourself independently? 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 No [email or web address] Information not available 06/15/2023 What is your exercise level? Occasional Information not available 05/28/2023 Mental Status Question Answer Note LastModified by Organization D etails LastModified Time Do you feel stressed (tense, restless, nervous, or anxious, or unable to sleep at night)? [id number] [email or web address] Information not available 03/27/2025 Family History Relationship Description Onset Age of this Age Resolved Age Notes LastModified by Organization Details LastModified Time Paternal Grandmother Heart disease [email or web address] Not available 2022 10:12:37 Paternal Grandmother Diabetes [...] ICD10 Code Diagnosis IMO Codes Diagnosis Note [id number] Jake Humphreys MD [facility] [address] [address] 06/22/2025 12:11:56 06/22/2025 13:15:34 Cyst of ovary 27473207 N83.209 [id number] This patient is a 40-year-ol d female [...] care in total. We agreed to observe. [id number] Jake Humphreys MD [facility] [address] [address] 06/22/2025 13:30:49 06/22/2025 13:47:30 Pain in pelvis 91205160 R10.20 450286 Health Concerns Section Related Observation LastModified by Organization Detai ls LastModified Time None Recorded Concern Status LastModified by Organization Details LastModified Time None Recorded Payers Encounter Date Sequence Insurance Name Policy Number Policy Barton Covered Member ID Barton Member ID Guarantor Name 06/22/2025 1 [facility] [id number] Destini Skinner [id number] Destini Skinner Notes Date Note Type Note Provider Name and Address Organization Details Recorded Time 06/22/2025 text/html This patient is a 40-year-old female [...] We agreed to observe. Jake Humphreys MD [address], [place], [address], [facility] 06/22/2025 18:13:20 OBGyn Episode No OBEpisode recorded.
--- OUTSIDE RECORDS SUMMARY | 2025-08-10 02:05 | XMS_ITS | Encounter Summary ---
Author Organization [facility] Address [facility] [place] [address] Care Team Providers Care Yard Pipe Grader Name Role Phone Alida Klein MD Primary Care Provider [phone] Encounter Details Date Type Department Care Team (Latest Contact Info) Description 07/19/2025 Results Follow-Up [facility] Medical Group Multispecialty Care - [place] [address] [place] [address] Rosalba Morales, TOOL AND DIE MANAGER [address] [place], [place] [id number] THYROXINE, FREE (FT4), TSH W/REFLEX, FREE T3 Social History Tobacco Use Types Packs/Day Years Used Date Smoking Tobacco: Never Smokeless Tobacco: Never Comments:Counseled by Dr. Maria C marie. Alcohol Use Standard Drinks/Week Comments Yes 3 (1 standard drink = 0.6 oz pur e alcohol) Socially B1300 Health Literacy Answer Date Recor ded How often do you need to hav e someone help you when you read instructions, pamphlets, or other written material from your doctor or pharmacy? Never 06/19/2025 [facility] Utilities Answer Date Recorded In the past 12 months has th e electric, gas, oil, or water company threatened to shut off services in your home? No 06/19/2025 Humiliation, Afraid, Rape, and Kick questionnair e Answer Date Recorded Within the last year, have y ou been afraid of your partner or ex-partner? No 06/19/2025 Within the last year, have y ou been humiliated or emotionally abused in other ways by your partner or ex-partner? No Within the last year, have y ou been kicked, hit, slapped, or otherwise physically hurt by your partner or ex-partner? No 06/19/2025 Within the last year, have y ou been raped or forced to have any kind of sexual activity by your partner or ex-partner? No 06/19/2025 Social Connection and Isolation Panel Answer Date Recorded In a typical week, how many times do you talk on the phone with family, friends, or neighbors? More than three times a week 06/19/2025 How often do you get togethe r with friends or relatives? More than three times a week 06/19/2025 How often do you attend [facility] or confucianist services? Patient unable to answer 06/19/2025 Do you belong to any clubs o r organizations such as sikhism groups, unions, fraternal or athletic groups, or school groups? Patient declined 06/19/2025 How often do you attend meet ings of the clubs or organizations you belong to? Patient unable to answer 06/19/2025 Are you , , di vorced, , never , or living with a partner? Never 06/19/2025 AUDIT-C Answer Date Recorded Q1: How often do you have a drink containing alc ohol? 2-4 times a month 06/19/2025 Q2: How many drinks containi ng alcohol do you have on a typical day when you are drinking? 1 or 2 06/19/2025 Q3: How often do you have si x or more drinks on one occasion? Never 06/19/2025 Overall Financial Resource Strain (CARDIA) Answe r Date Recorded How hard is it for you to pa y for the very basics like food, housing, medical care, and heating? Patient unable to answer 06/19/2025 PHQ-2 Answer Date Recorded Patient Health Questionnaire-2 Score 2 06/19/2025 [facility] of Occupat ional Health - Occupational Stress Questionnaire Answer Date Recorded Do you feel stress - tense, restless, nervous, or anxious, or unable to sleep at night because your mind is troubled all the time - these days? To some extent 06/19/2025 Exercise Vital Sign Answer Date Recorde d On average, how many days pe r week do you engage in moderate to strenuous exercise (like a brisk walk)? 1 day 06/19/2025 On average, how many minutes do you engage in exercise at this level? 30 min 06/19/2025 Hunger Vital Sign Answer Date Recorded Within the past 12 months, y ou worried that your food would run out before you got the money to buy more. Patient declined Within the past 12 months, t he food you bought just didn't last and you didn't have money to get more. Patient declined PRAPARE - Transportation Answer Date Re corded In the past 12 months, has l ack of transportation kept you from medical appointments or from getting medications? No 05/23 In the past 12 months, has l ack of transportation kept you from meetings, work, or from getting things needed for daily living? No 06/19/2025 Housing Stability Vital Sign Answer Juaquin e Recorded In the last 12 months, was t here a time when you were not able to pay the mortgage or rent on time? No 06/19/2025 Number of Times Moved in the Last Year Not on fi le 06/19/2025 At any time in the past 12 m [facility], were you homeless or living in a group home (including now)? No 06/19/2025 Comments No Sex and Gender Information Value Date Recorded Sex Assigned at Female 03/25/2024 3:16 PM CDT Legal Sex Female 7:40 PM DINING CAR CONDUCTOR Gender Identity Female 03/25/2024 3:16 PM CDT Sexual Orientation Straight 03/25/2024 3: 16 PM CDT documented as of this encounter Plan of Treatment Upcoming Encounters Date Type Department Care Team (Late st Contact Info) Description 09/25/2025 8:00 AM DINING CAR CONDUCTOR Office Visit [facility] Medical Group Multispecialty Care - [place] [address] [address] [place], [place] [id number] [place] [address] [place] [id number] documented as of this encounter Visit Diagnoses Not on filedocumented in this encounter Additional Health Concerns Assessment Noted Time PHQ-9 Depression Total Score: 9 06/19/20 25 7:52 AM CDT documented as of this encounter Care Teams Yard Pipe Grader Relationship Specialty Start Date End Date Alida Klein MD [address] [address] PCP - General INTERNAL MEDICINE 03/23/24 documented as of this encounter
--- OUTSIDE RECORDS SUMMARY | 2025-08-10 02:05 | XMS_ITS | Encounter Summary ---
Author Organization [facility] Address [address] [place] [id number] Care Team Providers Care Solar Energy Advisor Name Role Phone Alida Klein MD Primary Care Provider [phone] Reason for Visit * Reason Comments Lab (SCAN) Encounter Details Date Type Department Care Team (Latest Contact Info) Description 08/02/2025 Scan [facility] Scanned, Doc [...] from your doctor or pharmacy? Never 06/19/2025 [facility] Utilities Answer Date Recorded In the past 12 months has [facility] [employer], gas, oil, or water [employer] threatened to shut off services in your [...] week 06/19/2025 How often do you attend chur or scientology services? Patient unable to answer 06/19/2025 Do you belong to any clubs o r organizations such as advent groups, unions, [employer] or athletic groups, or school groups? Patient [...] Recorded Patient Health Questionnaire-2 Score 2 06/19/2025 [facility] of Occupat ional Health - Occupational Stress [...] any time in the past 12 m [facility], were you homeless or living in a alf (including now)? No 06/19/2025 Comments No Sex and Gender Information Value Date Recorded Sex Assigned at Female 03/25/2024 3:16 PM CDT Legal Sex Female 7:40 PM INSIDE FINISHER Gender Identity Female 03/25/2024 3:16 PM CDT Sexual Orientation Straight 03/25/2024 3: 16 PM CDT documented as of this encounter Plan of Treatment Upcoming Encounters Date Type Department Care Team (Late st Contact Info) Description 09/25/2025 8:00 AM INSIDE FINISHER Office Visit [facility] Medical Group Multispecialty Care - [place] [address] [address] [place] [address] Alida Klein MD [address] [place] [address] documented as of this encounter Procedures Procedure Name Priority Date/Time Associated Diagnosis Comments OUTSIDE LAB (SCAN ORDER) 08/02/2025 documented in this encounter Results * OUTSIDE LAB (SCAN ORDER) (08/02/2025) 08/02/2025 [facility] Scanned SCANNING Final Resu lt documented in this encounter Visit Diagnoses Not on filedocumented in this encounter Additional Health Concerns Assessment Noted Time PHQ-9 Depression Total Score: 9 06/19/20 25 7:52 AM CDT documented as of this encounter Care Teams Solar Energy Advisor Relationship Specialty Start Date End Date Alida Klein MD [address] [address] PCP - General INTERNAL MEDICINE 03/23/24 documented as of this encounter
--- OUTSIDE RECORDS SUMMARY | 2025-08-10 02:05 | XMS_ITS | Clinical Summary ---
Author Organization [facility] Address [address] [place] [address] Care Team Providers Care Legal Writing Professor Name Role Phone Rodrigo Rizvi MD Primary Care Provider [phone] Source Comments [facility],non-owned Affiliates and Associated Physician Practices is amultiple site organization consisting of ambulatory clinics and hospital sitesin [place], [place], [place] and [place]. This disclosure is being madepursuant to the Care Everywhere program and may not contain all information available regarding this patient. Last updated 18.[facility] Allergies No known active allergies Medications * Be aware that medications may not be up to date on this document. Alwaysverify current medications with the patient. 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 Gender Identity Female 02/12/2022 10:37 AM CDT Sexual Orientation Straight 02/12/2022 10 :37 AM CDT Plan of Treatment Health Maintenance Due Date Last Done Comments LIPID TESTING 1985 MAMMOGRAM 1985 HIV SCREENING 2000 HEPATITIS C SCREENING 03/27/2003 DTAP/TDAP/TD VACCINES (1 - Tdap) 2004 HEPATITIS B VACCINE (1 of 3 - 19+ 3-dose series) 2004 Cervical Cancer Screening 2006 PAP SMEAR 2006 HPV VACCINE (1 - 3-dose SCDM series) 2012 PAP with HPV 2015 DEPRESSION SCREENING 09/21/2024 COVID-19 VACCINE (1 - 2024-2 6 season) 2025 INFLUENZA VACCINE (#1) 2025 ZOSTER [...] patient's age to complete this topic Insurance [employer] [facility] SELF PAY NO INSURANCE Member Subscriber Plan / Payer (Ef fective for All Dates) Name:Shaunna Destini Member ID:Not on file Relation to Subscriber:Not on file Name:DESTINI MAZA Subscriber ID:Not on file Address: [address] [place] [id number] Payer ID:Not on file Group ID:Not on file Type:Self Pay Address: [place], [place] [facility] SELF PAY NO INSURANCE Member Subscriber Plan / Payer (Ef fective for All Dates) Name:Destini Maza Member ID:Not on file Relation to Subscriber:Not on file Name:DESTINI MAZA Subscriber ID:Not on file Address: [address] [place] [address] Payer ID:Not on file Group ID:Not on file Type:Self Pay Address: [place], [place] SELF PAY NO INSURANCE Member Subscriber Plan / Payer (Ef fective for All Dates) Name:Destini Maza Member ID:Not on file Relation to Subscriber:Not on file Name:DESTINI MAZA Subscriber ID:Not on file Address: [address] [place] [address] Payer ID:Not on file Group ID:Not on file Type:Self Pay Address: [place], [place] Care Teams Legal Writing Professor Relationship Specialty Start Date End Date Rodrigo Rizvi MD [address] [place], [place] [phone] PCP - General 04/27/18
--- OUTSIDE RECORDS SUMMARY | 2025-08-10 02:05 | XMS_ITS | Data Portability ---
Author Organization [facility] Address [address] [place] [address] Care Team Providers Care Tank Builder Supervisor Name Role Phone KATHRYNMONICA Primary Care Provider [phone] Assessment Encounter Date Assessment Date Assessment LastModified by Organization Details LastModified Time 03/27/2025 03/27/2025 Annual gynecological exam performed. Patient will come back in a year unless there are new symptoms. [email or web address] Not available 03/27/2025 10:03:43 Plan of Treatment Reminders Order Date Submit Date Provider Last Modified By Organization Details Last Modified Time Details Appointments None recorded. Lab pap, IG + HR HPV - HPV regardless but if HPV is positive need subtyping 16,18/[address]/GC/Trich 2024 025 [facility] (Lab), [address], [place], [address], 5 09:56:45 25-hydroxyv itamin D2 + 25-hydroxyv itamin D3, QN, serum or plasma 2024 025 [facility] (Lab), [address], [place], [address], 5 09:56:44 HBsAg (hepatitis B surface Ag), serum 2024 025 [facility] (Lab), [address], [place], [address], 5 09:56:44 urinalysis, dipstick 2024 025 [email or web address], [address], [place], [address], 15:51:35 CT + NG + TV, RNA, unspecified specimen 2024 [facility] (Lab), [address], [place], [address], 16:55:56 Referral None recorded. Procedures None recorded. Surgeries None recorded. Imaging US, transvagina l 2024 [email or web address] [facility], [address], [place], [address], 17:51:03 Medication Orders estradiol 0.01% (0.1 mg/gram) vaginal cream 2024 [facility], [address] [place] [address], [address], 10:37:57 Macrobid 100 mg capsule 2024 [facility], [address] [place] [address], [address], 15:53:04 Diflucan 150 mg tablet 2024 [facility], [address] [place] [address], [address], 5 15:53:03 Patient TargetsNo targets recorded. Patient InstructionsNo instructions recorded. Reason for Referral None Reported. Results Created Date Observation Date Name Description Value Unit Range Abnormal Flag Note LastModifiedBy Organization Detail LastModifiedTime 02/23/20 25 02/22/2025 CT/GC AND TRICH OMONA S VAGIN JOLEEN (RRNA ), URINE chlamydia trachomatis, PCR Negati ve negati ve Not Available [facility] (Lab) [address], [place], [address], 02/23/2025 16:55:56 02/23/20 25 02/22/2025 CT/GC AND TRICH OMONA S VAGIN JOLEEN (RRNA ), URINE neisseria gonorrhoeae, PCR Negati ve negati ve Not Available [facility] (Lab) [address], [place], [address], 02/23/2025 16:55:56 02/23/20 25 02/22/2025 CT/GC AND TRICH OMONA S VAGIN JOLEEN (RRNA ), URINE trichomonas vaginalis ribosomal RNA (rrna) Negati ve negati ve Not Available [facility] (Lab) [address], [place], [address], 02/23/2025 16:55:56 02/23/20 25 02/22/2025 urina lysis , dipst ick Leukocytes - Not Available [facility] alyse [address], [place], [address], 02/22/2025 15:49:42 02/23/20 25 02/22/2025 urina lysis , dipst ick Nitrite - Not Available [facility] [address], [place], [address], 02/22/2025 15:49:42 02/23/20 25 02/22/2025 urina lysis , dipst ick Urobilinogen - Not Available [facility] leisa [address], [place], [address], 02/22/2025 15:49:42 02/23/20 25 02/22/2025 urina lysis , dipst ick Protein trace Not Available [facility] [address], [place], [address], 02/22/2025 15:49:42 02/23/20 25 02/22/2025 urina lysis , dipst ick pH 5 Not Available [facility] [address], [place], [address], 02/22/2025 15:49:42 02/23/20 25 02/22/2025 urina lysis , dipst ick Specific [place] 1.000 Not Available [facility] cate [address], [place], [address], 02/22/2025 15:49:42 02/23/20 25 02/22/2025 urina lysis , dipst ick Ketone - Not Available [facility] [address], [place], [address], 02/22/2025 15:49:42 02/23/20 25 02/22/2025 urina lysis , dipst ick Bilirubin - Not Available [facility] viola [address], [place], [address], 02/22/2025 15:49:42 02/23/20 25 02/22/2025 urina lysis , dipst ick Glucose - Not Available [facility] [address], [place], [address], 02/22/2025 15:49:42 02/23/20 25 02/22/2025 urina lysis , dipst ick Appearance clear Not Available [facility] [address], [place], [address], 02/22/2025 15:49:42 02/23/20 25 02/22/2025 urina lysis , dipst ick Color light yellow Not Available [facility] [address], [place], [address], 02/22/2025 15:49:42 03/27/20 25 03/27/2025 HBSAG /HCV/ HIV/R MN HIV antigen/anti body Nonrea ctive nonrea ctive HIV-1 antig en and HIV-1 /HIV- 2 antib odies were not detec laine. No labor atory evide nce of HIV infec tion. Not Available [facility] (Lab) [address], [place], [address], 03/29/2025 09:56:44 03/27/2003/27/2025 HBSAG /HCV/ HIV/R MN hepatitis B surface antigen Non-re active non-re active This assay was perfo rmed using [employer] ratio n reage nts and test kits. Value s obtai juana with other assay metho ds or kits canno t be used inter torres eably . Not Available [facility] (Lab) [address], [place], [address], 03/29/2025 09:56:44 03/27/2003/27/2025 HBSAG /HCV/ HIV/R MN hepatitis C antibody Non-re active non-re active Antib odies to HCV Not Detec laine, does not exclu de the possi bilit y of expos ure to HCV. Not Available [facility] (Lab) [address], [place], [address], 03/29/2025 09:56:44 03/27/20 25 03/27/2025 HBSAG /HCV/ HIV/R MN RPR qualitative Nonrea ctive nonrea ctive Not Available [facility] (Lab) [address] [place], [address], 03/29/2025 09:56:44 03/27/20 25 03/27/2025 VITAM IN D, 25-OH (TOTA L D2/D3 ) vitamin D, 25-hydroxy, total 34.9 NG/mL 30.0-1 00.0 : Routi ne : VAGIN AL Sugge stive of Defic iency : <20 ng/mL Sugge stive of Insuf ficie ncy: 20-29 ng/mL Sugge stive of Suffi cienc y: 30-10 0 ng/mL Sugge stive of Toxic ity: >150 ng/mL Not Available [facility] (Lab) [address], [place], [address], 03/29/2025 09:56:44 03/27/20 25 03/27/2025 IMAGE GUIDE D PAP AND HPV REGAR DLESS image guided Pap, HPV regardless of Pap result SEE RESULT S BELOW CASE REPOR T: Cytol ogy Gynec ologi migdalia Repor t Case: [id number] Autho marla g Provi ladi: Ivannao linda, Melisa , ANP, MEDICAL RECORDS ANALYST Colle cted: 03/27 1011 Order ing Locat [...] epith elial Jas agudelo or Lokesh villa ([facility]) . Shift in bob sugge stive of [...] as clini max randle nted. Not Available [facility] (Lab) [address], [place], [address], 03/29/2025 09:56:45 03/27/20 25 03/27/2025 CT/GC AND TRICH OMONA S VAGIN JOLEEN (RRNA ), THINP REP VIAL CT/GC and trichomonas vaginalis (rrna), thinprep SEE RESULT S BELOW negati ve CHLAM YDIA TRACH OMATI S, PCR: Negat amilcar NEISS ERIA GONOR RHOEA E, PCR: Negat amilcar TRICH OMONA S VAGIN JOLEEN RIBOS OMAL RNA (RRNA ): Negat amilcar Not Available [facility] (Lab) [address], [place], [address], 03/29/2025 09:56:45 05/01/20 25 05/01/2025 US, santiago mendoza, bilat eral No observ ation record ed. [email or web address] [facility] [address], [place], [address], 05/02/2025 07:55:17 05/01/20 25 05/01/2025 US, santiago mendoza bilat eral No observ ation record ed. Imaging [address], [place], [address], 05/03/2025 10:27:29 06/22/20 25 06/22/2025 US, pelvi s No observ ation record ed. [email or web address] [address], [place], [address], 06/22/2025 21:12:46 06/22/20 25 06/22/2025 US, trans vagin al No observ ation record ed. [facility] [address], [place], [address], 06/22/2025 15:27:27 Result Notes None recorded. Procedures Surgical History Date Name Laterality Status Provider Name and Address Organization Details Recorded Time 01/08/20 24 TOTAL HYSTERECTOMY, LAPAROSCOPIC, WITH BILATERAL SALPINGECTOMY (SURG) completed Rachel Agarwal [facility] 01/13/2024 14:32:15 05/28/20 23 Date of Last Pap Smear completed Kera Booker [facility] 06/15/2023 09:31:12 09/21/19 19 Colposcopy completed Kera Booker [facility] 06/15/2023 09:32:45 09/21/19 19 Colposcopy completed Kera Booker [facility] 06/15/2023 09:35:24 09/21/19 17 procedure on heart completed Shweta [facility] 05/28/2023 10:22:29 09/21/19 10 cholecystectomy completed [facility] 06/15/2023 09:35:53 09/21/18 90 tonsilectomy/adeno ids completed [facility] 06/15/2023 09:35:35 09/21/18 86 procedure on heart valve completed [facility] 05/28/2023 10:22:18 Imaging Results None recorded. Procedure Notes None recorded. Medical Equipment None Reported. Allergies Allergen ID Allergen Name Allergen Category Reaction Reaction Severity Criticality Documentation Date Start Date Code Code System Note Provider Name and Address Organization Details Recorded Time ethinyl estradiol / levonorge strel medicatio n cough mild Not available 05/28/2023 49763 8 RxNorm Shweta Kolb [facility] 3 10:00:37 88331 citrus bioflavon oids food,medi cation Not available Not available low 08/07/20252024 72720 2 RxNorm unrec ogniz ed react ion (text : Nause a and Vomit ing, code: [id number]) (from exter nal sourc e) Not Available claire - External Data Service - prod 5 08:56:05 35210 butylscop olamine bromide Not available Not available Not available Not available 08/07/20252024 1851 RxNorm unrec ogniz ed react ion (text : Blurr ed visio n, code: 25809 6008) (from exter nal sourc e) Not Available claire - External Data Service - prod 5 08:56:05 Medications Name Sig Start Date Stop Date Status Note LastModified by Organization Details LastModified Time binaxnow cov kit home sade 06/15 completed Not Available Not Available Not Available flowflex kit test 06/15 completed Not Available Not Available Not Available [facility] 2-pk kit covid-19 06/15 completed Not [...] Updated DateTime 01/06/2025 167.64 cm 31.2 kg/m2 35909.33 g 123/75 mm[Hg] SHAYAN Solitario [facility] 01/06/2025 12:45:50 Date Recorded Body height Body mass index (BMI) Body weight Systolic And Diastolic Provider Name and Address Organization Details Last Updated DateTime 02/22/2025 167.64 cm 30.3 kg/m2 01344.37 g 110/71 mm[Hg] [facility] 02/22/2025 15:46:23 Date Recorded Body height Body mass index (BMI) Body weight Systolic And Diastolic Provider Name and Address Organization Details Last Updated DateTime 03/27/2025 167.64 cm 30 kg/m2 47712.18 g 110/72 mm[Hg] [facility] 03/27/2025 10:10:26 Date Recorded Body height Body mass index (BMI) Body weight Systolic And Diastolic Provider Name and Address Organization Details Last Updated DateTime 06/22/2025 167.64 cm 28.6 kg/m2 81570.85 g 122/77 mm[Hg] Carmela Marquis [facility] 06/22/2025 12:49:50 Social History Question Answer Notes LastModified by Organizat ion Details LastModified Time Tobacco Smoking Status Never Smoker Kera matthews, [facility] 06/15/2023 09:35:14 Do You Have An [...] Or The Highest Degree You Have Received? NA39725-3 Information not available 05/28/2023 Are There Any Guns Present In Your Home? No Information not available 05/28/2023 Have You Ever Been Counseled For Unhealthy Alcohol Use? No [email or web address] Information not available 06/15/2023 Do You Use [...] Has Tobacco Cessation Counseling Been Provided? No [email or web address] Information not available 06/15/2023 Have You Used IV Drugs? No Information not available 05/28/2023 Do You Have Difficulty Walking Or Climbing Stairs? No [email or web address] Information not available 06/15/2023 Sex: Unknown Functional Status Question Answer Note LastModified by Organizat ion Details LastModified Time Do you use any illicit or recreational drugs? Yes Information not available 05/28/2023 Do you or have you ever used any other forms of tobacco or nicotine? No [email or web address] Information not available 06/15/2023 What is your level of alcohol consumption? Occasional Information not available 05/28/2023 Are you able to walk independently without assistance or assistive devices? [email or web address] Information not available 05/28/2023 Are you able to care for yourself independently? 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 No [email or web address] Information not available 06/15/2023 What is your exercise level? Occasional Information not available 05/28/2023 Mental Status Question Answer Note LastModified by Organization D etails LastModified Time Do you feel stressed (tense, restless, nervous, or anxious, or unable to sleep at night)? MI08319-1 [email or web address] Information not available 03/27/2025 Family History Relationship [...] ICD10 Code Diagnosis IMO Codes Diagnosis Note [id number] Jake Humphreys MD [facility] [address] [address] 05/28/2023 09:54:29 05/28/2023 11:10:40 Dyspareunia 73668486 N94.10 30-year-ol d with severe dyspareuni a. [...] favoring a hysterecto my. Pain in pelvis 02831817 R10.2 Vaginal dryness 05890550 N89.8 [id number] Jake Humphreys MD [facility] [address],[place] [address] 06/11/2023 09:14:33 06/11/2023 09:51:48 Dyspareunia 77586725 N94.10 30-year-ol d with severe dyspareuni a. [...] options, patient is favoring a hysterecto my. [id number] Jake Humphreys MD [facility] [address],[facility] [place] [address] 06/15/2023 09:09:06 06/15/2023 12:54:30 Mixed anxiety and depressive disorder 358717387 F41.8 Herpes simplex 75248006 B00.9 Vitamin D deficiency 347 16168 E55.9 Contracept ion care management 714074496 Z30.9 Dyspareunia 12865661 N94 .10 this patient is a 38-year-ol [...] decision to perform surgery. Pain in pelvis 91833443 R10.2 Dysmenorrhea 637967586 N 94.6 [id number] Jake Humphreys MD [facility] [address] [address] 11/20/2023 09:07:47 11/20/2023 10:21:52 Dysmenorrhea 904463018 N94.6 Dyspareunia 16825614 N94 .10 Lesion of endometrium 92 93194400 9101 N85.9 Menorrhagia 138870658 N9 2.0 This patient is a 38-year-ol [...] 50% of our Meeting was counseling . [id number] Jake Humphreys MD [facility] [address],[facility] [place] [address] 12/28/2023 16:49:29 12/29/2023 00:16:02 Menorrhagia 643061556 N92.0 this patient is a 30-year-ol d female with severe menorrhagi a. We have agreed to perform total laparoscop ic hysterecto my, bilateral salpingect subha, and right oophorecto my. She understand s risks, benefits, and alternativ es. She is completed the informed consent process and is ready to proceed. [id number] Jake Humphreys MD [facility] [address] [address] 01/14/2024 09:42:58 01/14/2024 10:30:23 Postoperative care 442577461 Z48.89 female Patient presents for postop follow-up. She is 1 week postop from a total laparoscop ic hysterecto my bilateral salpingect subha. She has no complaints . Her incisions are clean dry and intact. She is recovering normally. She will follow-up as needed. [id number] Jake Humphreys MD [facility] [address],[facility] [place] [address] 01/26/2024 12:35:54 01/27/2024 11:06:36 Urinary tract infectious disease 12940908 N39.0 [id number] Jake Humphreys MD [facility] [address] [address] 03/08/2024 09:40:27 03/08/2024 10:31:55 Postoperative pain 444889972 G89.18 38-year-ol d who is 8 weeks [...] She was examined. [id number] Jake Humphreys MD [facility] [address] [address] 04/07/2024 11:20:44 04/07/2024 12:51:08 Dysuria 19243366 R30.0 Chronic in terstitial cystitis 199682678 N30.10 Dyspareunia 25376355 N94 .10 this patient is a 39 old female presents for persistent postoperat amilcar dyspareuni a, urinary urgency, pain with a full bladder. She is symptoms of interstiti al cystitis. I intend to send her to Dr. Denton of urogynecol eric for evaluation and treatment. We will obtain pelvic ultrasound . We need to examine her existing ovary and pelvis. Her pain has improved with intercours e. It occurs after intercours e and persists for several hours. She is tender anterior vagina /bladder area. This was identified on a previous exam. I spent more than 20 minutes on her care. [id number] Jake Humphreys MD [facility] [address] [address] 04/21/2024 09:25:12 04/21/2024 10:02:12 Pain in pelvis 63837403 R10.2 [id number] Jake Humphreys MD [facility] [address] [address] 04/21/2024 09:25:35 04/21/2024 11:42:57 Dyspareunia 24048234 N94.10 this patient is a 39-year-ol d [...] needed. Look forward to Dr. Miller consult. [id number] NEEL CACERES MD [facility] [address] [address] 06/06/2024 11:32:49 06/06/2024 12:46:43 Postcoital bleeding 12813300 N93.0 - patient reports one episode of postcoital bleeding 2 weeks ago as well as 1 clot when house cleaning yesterday- no pain- exam significan t for small area of granulatio n tissue at vaginal cuff, cuff otherwise intact and normal- silver nitrate applied without issue Venereal d isease screening 075983627 Z11.3 - will send urine CT/GC/Tric h- blood testing ordered [id number] Jake Humphreys MD [facility] [address] [address] 07/18/2024 16:45:59 07/18/2024 17:36:52 Postcoital bleeding 44663056 N93.0 this patient is a 39-year-ol d [...] will contact us if there are problems. [id number] NEEL CACERES MD [facility] [address],[facility] [place] [address] 10/07/2024 14:23:12 10/10/2024 10:33:28 Mass of left breast 1608167922 2427092 N63.20 - new left breast mass since Thursday- not painful- no nipple discharge- no family hx of breast cancer- exam demonstrat es possible 2cm mass vs fibrocysti c tissue- diagnostic mammogram ordered Vaginitis 91806181 N76.0 - thick white discharge and external irritation - swab sent- rx for diflucan sent [id number] Jake Humphreys MD [facility] [address],[place] [address] 01/06/2025 12:30:39 01/09/2025 18:28:26 [id number] Jake Humphreys MD [facility] [address],[place] [address] 02/22/2025 15:37:28 02/22/2025 16:03:34 Urinary system finding 060914573 R39.9 [id number] Patient presents with symptoms of UTI. Results [...] finishing antibiotic s. Venereal d isease screening 210425404 Z11.3 [id number] Pt requested urine STI testing.Di scussed the various types of STDs, related symptoms and the potential consequenc es (including effects on fertility) of STD infections . Reviewed ways to limit exposure and prevention techniques . [id number] Jake Humphreys MD [facility] [address],[place] [address] 03/27/2025 09:58:53 03/27/2025 10:48:12 Well woman health examination 194517040 Z01.419 913433 Annual gynecologi migdalia exam performed. Patient will [...] PCP STI testing - requested Vaginal dryness 10517292 N89.8 [id number] Today we discussed Vag-E therapy along with VCG care changes to make (sheets h/o's given): Watch Guard Gate on Vaginal estrogen Therapy: Vaginal estrogen Vaginal [...] plan of care. Venereal d isease screening 943659459 Z11.3 [id number] Pt requested urine STI testing.Di scussed the various types of STDs, related symptoms and the potential consequenc es (including effects on fertility) of STD infections . Reviewed ways to limit exposure and prevention techniques . Vitamin D deficiency 347 88086 E55.9 73389 Hx of Vitamin D deficiency Will check levels today [id number] Jake Humphreys MD [facility] [address] [address] 06/22/2025 12:11:56 06/22/2025 13:15:34 Cyst of ovary 41144080 N83.209 [id number] This patient is a 40-year-ol d female [...] care in total. We agreed to observe. [id number] Jake Humphreys MD [facility] [address] [address] 06/22/2025 13:30:49 06/22/2025 13:47:30 Pain in pelvis 04033456 R10.20 [id number] Health Concerns Section Related Observation LastModified by Organization Detai ls LastModified Time None Recorded Concern Status LastModified by Organization Details LastModified Time None Recorded Advance Directives Directive N: Payers Insurance Date Sequence Insurance Name Policy Number Policy Barton Covered Member ID Barton Member ID Guarantor Name 06/22/2025 2 [place] [employer] Destini Skinner [id number] Destini Skinner 06/22/2025 2 [facility] [facility] PRIOR TO 04/21/2025 (MEDICAID REPLACEMENT - HMO) Destini Skinner [id number] Destini Tavaresallo 06/22/2025 1 [facility] [id number] Destini Skinner [id number] Destini Skinner 07/18/2024 PAYMENT PLAN Destini Tavaresallo 07/05/2024 PAYMENT PLAN Destini Dilallo 06/22/2025 1 [facility] [facility] [id number] Destini Skinner Destini Skinner 06/22/2025 2 [place] [facility] Destini Skinner [id number] Destini Skinner Notes Date Note Type Note Provider Name and Address Organization Details Recorded Time 5 text/html 39 y/o female presents with c/o burning during and after urination.Denies frequency, urgency, or pelvic pressure.Patient states that she recently had new sexual partner and requests STI testing.Neg pain of abd/pelvis/flankNeg GI sx'sNeg N/V/F/C/DNeg Vag d/c, odor, irritation, itching MELISA ROWLAND NP [address], [place], [address], [facility] 02/22/2025 16:03:13 5 text/html Annual GYNReported [...] hysterectomy with RSO in 2023. Apoorva matthews, [facility] 03/27/2025 12:45:54 5 text/html This patient [...] observe. Jake Humphreys MD [address], [place], [address], [facility] 06/22/2025 18:13:20 OBGyn Episode Ob Episode Information Episode Created Date Number of Fetuses Patient Bloodtype Patient rh Status Prepregnancy Weight lbs Domestic Partner Domestic Partner Phone Father Name Conservation Specialist Status 06/15/20 23 1 CLOSED Fetus Data First Name Last Name Admitted to NICU Weight (g) Sex Living Outcome Pediatric Complications Fetus ID Race Codes Race Delivery Type 4167.14 9704 M Full Term 34438 Vaginal Delivery Gilberto Calculation Initial Gilberto Date [...] Domestic Partner Domestic Partner Phone Father Name Conservation Specialist Status 06/15/20 23 1 CLOSED Fetus Data First Name Last Name Admitted to NICU Weight (g) Sex Living Outcome Pediatric Complications Fetus ID Race Codes Race Delivery Type 3713.55 7704 F Full Term 38212 Vaginal Delivery Gilberto Calculation Initial Gilberto Date [...] Post Complications Tubal Sterilization Discharge Date Comments 01/12/200 5 Discharge Information Feeding Method Contraceptive Method Maternal HG B and HCT Levels
--- OUTSIDE RECORDS SUMMARY | 2025-08-10 02:05 | XMS_ITS | Clinical Summary ---
Author Organization [facility] Address [address] [place] [address] Care Team Providers Care Director Appointment Name Role Phone Alida Klein MD Primary Care Provider [phone] Allergies Active Allergy Reactions Criticality Noted Date Comments Pacific Nausea and Vomiting Low 06/13/2025 Scopolamine Blurred vision 06/19/2025 Medications acyclovir (ZOVIRAX) 800 MG tablet Take 1 tablet (800 mg total) by mouth daily. 03/09/20 24 Active ASPIRIN 81 OR Take 81 mg by mouth. Active oxybutynin XL (DITROPAN-XL) 10 MG 24 hr tablet Take 1 tablet (10 mg total) by mouth daily. 09/10/20 24 Active sertraline (ZOLOFT) 50 MG tablet Take 1 tablet (50 mg total) by mouth daily. Active vitamin D2, ergocalciferol, (DRISDOL) 1.25 mg capsuleIndicati ons:Vitamin D deficiency Take 1 capsule (1.25 mg total) by mouth once a week. 12 capsule 3 06/19/20 25 Active semaglutide (OZEMPIC) 2 MG/3ML injection (PEN)Indication s:Diabetes Mellitus Inject 0.25 mg into the skin every 7 days. Indications: Diabetes 9 mL 06/19/20 25 Active omeprazole (PRILOSEC) 40 MG capsuleIndicati ons:Gastroesoph ageal reflux disease without esophagitis Take 1 capsule (40 mg total) by mouth daily as needed. 90 capsule 1 06/19/20 25 Active metoclopramide (REGLAN) 5 MG tabletIndicatio ns:Nausea TAKE 1 TABLET BY MOUTH ONCE DAILY NEEDED 30 tablet 07/25/20 25 Active metoclopramide (REGLAN) 5 MG tabletIndicatio ns:Nausea Take 1 tablet (5 mg total) by mouth daily as needed. 30 tablet 06/19/20 25 025 Discontinued Active Problems Problem Noted Date Diagnosed Date [...] hyperglycemia, without long-term current use of insulin 12/21/2020 Nonrheumatic pulmonary valve stenosis 12/14/2018 Encounters Date Type Department Care Team Description 08/02/2025 Scan [facility] SRVCS Scanned, [facility] Lab (SCAN) 07/19/2025 7:30 AM CDT Laboratory Only [place] [address] [place] [address] Alida Klein MD 07/19/2025 - 07/19/2025 11:59 PM CDT Hospital Encounter [facility] [address] [place] [address] Alida Klein MD Discharge Disposition: Home or Self Care (Routine Discharge) 07/19/2025 Results Follow-Up [facility] [address] [facility] [address] [place] [address] Rosalba Morales NP THYROXINE, FREE (FT4), TSH W/REFLEX, FREE T3 07/19/2025 Travel 07/14/2025 Scan [facility] SRVCS Scanned, [facility] Image (SCAN) 06/19/2025 7:00 AM CDT Office Visit [place] [address] [facility] [address] [place] [address] Alida Klein MD Physical; GERD (/); Follow Up (Follow up of chronic medical issues) 06/19/2025 Results Follow-Up [place] [address] [place] [address] Alida Klein MD URINALYSIS, ALBUMIN/CREATININE RATIO, RANDOM URINE, CBC W/DIFF AUTOMATED, Additional followed-up results: 5 06/19/2025 Travel 06/13/2025 Scan HEALTH INFO SRVCS Scanned, [facility] 06/07/2025 Telephone [place] [address] [facility] [address] [place] [address] Alida Klein MD Medication Request 06/06/2025 [employer] Message Enc [place] [address] [facility] [address] [place] [address] Alida Klein MD Nausea 06/05/2025 Telephone [facility] [address] [facility] [address] [address] [place] [address] Alida Klein MD Medication Information from Last 3 Months Immunizations Immunization Administration [...] from your doctor or pharmacy? Never 06/19/2025 [facility] Utilities Answer Date Recorded In the past [...] week 06/19/2025 How often do you attend [facility] or confucianist services? Patient unable to answer 06/19/2025 Do you belong to any clubs o r organizations such as judaism groups, unions, fraternal or athletic groups, or [...] Recorded Patient Health Questionnaire-2 Score 2 06/19/2025 [facility] - Occupational Stress Questionnaire Answer Date [...] any time in the past 12 m [facility], were you homeless or living in a long term (including now)? 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 Gender Identity Female 03/25/2024 3:16 PM CDT Sexual Orientation Straight 03/25/2024 3: 16 PM CDT Last Filed Vital Signs Vital Sign Reading Time Taken Comments Blood Pressure 100/57 06/19/2025 7:12 AM CDT Pulse 70 06/19/2025 7:12 AM CDT Temperature 36.1 C (97 F) 06/19/2025 7:12 AM CDT Respiratory Rate 16 06/19/2025 7:12 AM CDT Oxygen Saturation 99% 06/19/2025 7:12 AM CDT Inhaled Oxygen Concentration - - Weight 79.2 kg (174 lb 8 oz) 06/19/2025 7:12 AM CDT Height 165.1 cm (5' 5) 06/19/2025 7:12 AM CDT Body Mass Index 29.04 06/19/2025 7:12 AM CDT Plan of Treatment Upcoming Encounters Date Type Department Care Team (Late st Contact Info) Description 09/25/2025 8:00 AM MUSIC 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 Office Visit [facility] - [place] [address] [address] [place] [address] [place] [address] [place] [address] Health Maintenance Due Date Last Done Comments Diabetes: Retinopathy Eye Exam 2003 Hepatitis B Vaccines (1 of 3 - 19+ 3-dose series) 2004 HPV Vaccines (1 - 3-dose SCDM series) 2012 COVID-19 Vaccine ( season) 2025 07/13/2021, 12/29/2020, 12/02/2020 Influenza Adult (#1) 2025 06/21/2024, 07/01/2023, 07/13/2022, Additional history exists Hemoglobin A1C 12/17/2025 06/19/2025, 12/11/2023, 03/25/2024, Additional history exists Annual Physical 06/19/2026 06/19/2025, 03/23/2024 Kidney Health Evaluation 06/19/2026 06/19/2025 Lipid Panel 06/19/2026 06/19/2025, 03/25/2024 Mammogram Screening 05/01/2027 05/01/2025, DTaP, Tdap and Td Vaccines (3 - Td or Tdap) 02/19/2034 02/20/2024, 11/10/2020 Pneumococcal Vaccine: Pediatrics (0 to 5 Years) and At-Risk Patients (6 to 49 Years) Completed 05/18/2024 Hepatitis C Completed 03/27/2025, 03/25/2024 PHQ-2 (Physician [place]) Completed 06/19/2025 Hepatitis A Vaccines Aged Out No long er eligible based [...] Diagnosis Comments OUTSIDE LAB (SCAN ORDER) 08/02/2025 TSH W/REFLEX Routine 07/19/2025 7:44 AM CDT Drug therapy Screening for hypothyroidism THYROXINE, FREE (FT4) Routine 07/19/2025 7:44 AM CDT Drug therapy Screening for hypothyroidism FREE T3 Routine 07/19/2025 7:44 AM CDT Drug therapy Screening for hypothyroidism IMAGE GENERIC 07/14/2025 THYROXINE, FREE (FT4) Routine 06/19/2025 7:35 AM CDT HEMOGLOBIN, GLYCOSYLATED Routine 06/19/2025 7:35 AM CDT Annual physical exam Drug therapy TSH W/REFLEX Routine 06/19/2025 7:35 AM CDT Annual physical exam Drug therapy LIPID PANEL Routine 06/19/2025 7:35 AM CDT Annual physical exam Drug therapy COMPREHENSIVE METABOLIC PANEL Routine 06/19/2025 7:35 AM CDT Annual physical exam Drug therapy GENERAL HEALTH PANEL Routine 06/19/2025 7:35 AM CDT Annual physical exam Drug therapy ALBUMIN URINE RANDOM W/CREATININE Routine 06/19/2025 7:35 AM CDT Type 2 diabetes mellitus with hyperglycemia, without long-term current use of insulin (CMS/HCC HHS/HCC) URINALYSIS Routine 06/19/2025 7:35 AM CDT Annual physical exam Drug therapy COLLECTION VENOUS BLOOD VENIPUNCTURE Routine 06/19/2025 7:30 AM CDT Annual physical exam Drug therapy MAMMOGRAM GENERIC (SCAN ORDER) 05/01/2025 HEPATITIS C ANTIBODY Routine 03/25/2024 8:46 AM CDT Annual physical exam Establishing care with new doctor, encounter for General medical exam Encounter for hepatitis C screening test for low risk patient from Last 3 Months or Most Recently Relevant to Health Maintenance Results * OUTSIDE LAB (SCAN ORDER) (08/02/2025) 08/02/2025 us [facility] Scanned SCANNING Final Resu lt * TSH W/REFLEX (07/19/2025 7:44 AM CDT) Only the most recent of2 resultswithin the time period is included. TSH 0.628 0.358 - 3.740 uIU/ML 07/19/2025 3:53 PM CDT [facility] 07/19/2025 7:44 AM CDT Alida Klein MD LABORATORY Final Result [facility] [address] [place] [address], [place] [phone] * FREE T3 (07/19/2025 7:44 AM CDT) FREE T3 2.7 2.2 - 3.9 PG/ML 07/19/2025 7:47 PM CDT [facility] 07/19/2025 7:44 AM CDT Alida Klein MD LABORATORY Final Result Performing Organization Address City/[facility]/ZIP Co de Phone Number [facility] [address] [place] [address], [place] [phone] * THYROXINE, FREE (FT4) (07/19/2025 7:44 AM CDT) Only the most recent of2 resultswithin the time period is included. FREE T4 0.98 0.76 - 1.46 NG/DL 07/19/2025 3:53 PM CDT [facility] 07/19/2025 7:44 AM CDT Alida Klein MD LABORATORY Final Result Performing Organization Address [facility] Co de Phone Number [facility] [address] [place] [address], [place] [phone] * IMAGE GENERIC (07/14/2025) Anatomical Region Laterality Modality Other 07/14/2025 [facility] Scanned SCANNING Final Resu lt * HEMOGLOBIN, GLYCOSYLATED (06/19/2025 7:35 AM CDT) HGB A1C 5.1 4.5 - 6.2 % 06/19/2025 4:02 PM CD[address] [facility] ESTIMATED AVG GLUCOSE 100 74 - 106 MG/DL 06/19/2025 4:02 PM CDT [facility] 06/19/2025 7:35 AM CDT Alida Klein MD LABORATORY Final Result [facility] [address] [place] [address], [place] [phone] * (ABNORMAL) URINALYSIS (06/19/2025 7:35 AM CDT) COLOR (U) YELLOW 06/19/2025 3:57 PM CDT [facility] TRANSPARENCY CLOUDY(A) CLEAR 06/19/2025 3:57 PM CDT [facility] SPECIFIC GRAVITY (U) >1.030 1.003 - 1.040 06/19/2025 3:57 PM CDT [facility] U PH 6.0 5.0 - 9.0 06/19/2025 3:57 PM CDT [facility] PROTEIN RANDOM (U) TRACE(A) NEGATIVE 06/19/2025 3:57 PM CDT [facility] GLUCOSE (U) NEGATIVE NEGATIVE 06/19/2025 3:57 PM CDT [facility] KETONES MG/DL (U) NEGATIVE NEGATIVE 06/19/2025 3:57 PM CDT [facility] BILIRUBIN (U) 1+(A) NEGATIVE 06/19/2025 3:57 PM CDT [facility] BLOOD (U) NEGATIVE NEGATIVE 06/19/2025 3:57 PM CDT [facility] UROBILINOGEN 0.2 0.0 - 2.0 EU/DL 06/19/2025 3:57 PM CD[address] [facility] NITRITES NEGATIVE NEGATIVE 06/19/2025 3:57 PM CDT [facility] LEUKOCYTES (U) NEGATIVE NEGATIVE 06/19/2025 3:57 PM CDT [facility] RBC/HPF 0-3 0 - 3 /HPF 06/19/2025 3:57 PM CDT [facility] WBC/HPF 0-3 0 - 3 /HPF 06/19/2025 3:57 PM CDT [facility] EPI/HPF 0-3 /HPF 06/19/2025 3:57 PM CDT [facility] BACTERIA (U) 1+(A) NONE SEEN 06/19/2025 3:57 PM CDT [facility] MUCUS FEW 06/19/2025 3:57 PM CDT [facility] COMMENT (U) Less than 12 ml urine submitted. 06/19/2025 3:57 PM CDT [facility] URIC ACID CRYSTALS PRESENT 06/19/2025 3:57 PM CD[address] [facility] AMORPHOUS SEDIMENT PRESENT 06/19/2025 3:57 PM CDT [facility] URINE SPECIMEN OBTAINED BY CLEAN CATCH PROCEDURE / Unknown 06/19/2025 7:35 AM CDT us Alida Klein MD URINE ORDERABLES Final Result [facility] [address] [place] [address], * ALBUMIN/CREATININE RATIO, RANDOM URINE (06/19/2025 7:35 AM CDT) MICROALBUMIN (U) 13.4 <20 MG/L 06/19/20 25 3:29 PM CDT [facility] CREATININE RANDOM (U) 448.1 MG/DL 06/19/2025 4:07 PM CD[address] [facility] ALBUMIN/CREAT RATIO 3.0 <30 MG/G 06/19/2025 4:07 PM CDT [facility] URINE SPECIMEN / Unknown 06/19/2025 7:35 AM CDT us Alida Klein MD URINE ORDERABLES Final Result -[facility] [address] [place] [address], [place] [phone] * (ABNORMAL) COMPREHENSIVE METABOLIC PANEL (06/19/2025 7:35 AM CDT) SODIUM S/P/B 141 136 - 145 MMOL/L 06/19/2025 3:49 PM CDT [facility] POTASSIUM S/P/B 3.7 3.5 - 5.1 MMOL/L 06/19/2025 3:49 PM CDT -[facility] CHLORIDE S/P/B 103 98 - 107 MMOL/L 06/19/2025 3:49 PM CDT [facility] CO2 27.3 21 - 32 MMOL/L 06/19/2025 3:49 PM CDT [facility] GLUCOSE 118(H) 70 - 99 MG/DL 06/19/2025 3:49 PM CDT -[facility] BUN 14 7 - 18 MG/DL 06/19/2025 3:49 PM CDT -[facility] CREATININE S/P/B 0.65 0.55 - 1.02 MG/DL 06/19/2025 3:49 PM CDT -[facility] CALCIUM S/P/B 9.1 8.4 - 10.5 MG/DL 06/19/2025 3:49 PM CDT [facility] BILIRUBIN TOTAL S/P/B 0.4 0.2 - 1.0 MG/DL 06/19/2025 3:49 PM CDT -[facility] ALKALINE PHOSPHATASE S/P/B 44 37 - 98 U/L 06/19/2025 3:49 PM CDT [facility] AST 13(L) 15 - 37 U/L 06/19/2025 3:49 PM CDT -[facility] ALT 18 14 - 59 U/L 06/19/2025 3:49 PM CDT [facility] TOTAL PROTEIN S/P/B 7.2 6.4 - 8.2 G/DL 06/19/2025 3:49 PM CDT [facility] ALBUMIN S/P/B 4.0 3.4 - 5.0 G/DL 06/19/2025 3:49 PM CDT [facility] ANION GAP 10.7 5 - 15 MMOL/L 06/19/2025 3:49 PM CDT [facility] Comment:REFERENCE RANGE NOT ESTABLISHED OSMOLALITY (CALC) 294 MOSM/KG 025 3:49 PM CDT [facility] Comment:REFERENCE RANGE NOT ESTABLISHED GFR ESTIMATE >90 >90 ML/MIN/1. 73 M2 06/19/2025 3:49 PM CDT [facility] GFR NOTES GFR REFERENCE S: 06/19/2025 3:49 PM CDT [facility] Comment: THE ESTIMATED GFR IS CALCULATED USING [...] ml/min/1.73 m2 G5,KIDNEY FAILURE: <15 ml/min/1.73 m2 06/19/2025 7:3 5 AM CDT Alida Klein MD LABORATORY Final Result [facility] [address] [place] [address], [place] [phone] * (ABNORMAL) LIPID PANEL (06/19/2025 7:35 AM CDT) CHOLESTEROL 178 <200 MG/DL 06/19/2025 3:49 PM CDT [facility] TRIGLYCERIDES 58 <150 MG/DL 06/19/2025 3:49 PM CDT [facility] HDL 49 >40 MG/DL 06/19/2025 3:49 PM CDT [facility] LDL-C 117(H) <100 MG/DL 06/19/2025 3:49 PM CDT [facility] VLDL CALCULATION 12 5 - 28 MG/DL 06/19/2025 3:49 PM CDT [facility] CHOL/HDL RATIO 3.6 0.0 - 4.0 06/19/2025 3:49 PM CDT [facility] LDL/HDL 2.4(H) 0.41 - 2.13 06/19/2025 3:49 PM CDT [facility] NON HDL CHOLESTEROL 129 <140 MG/DL 06/19/2025 3:49 PM CDT [facility] 06/19/2025 7:35 AM CDT Alida Klein MD LABORATORY Final Result [facility] [address] [place] [address], * (ABNORMAL) CBC W/DIFF AUTOMATED (06/19/2025 7:35 AM CDT) WBC 5.57 4.00 - 10.80 x10'3/uL 06/19/2025 3:31 PM CD[address] [facility] RBC 4.36 4.10 - 5.40 x10'6/uL 06/19/2025 3:31 PM CDT [facility] HGB 13.6 12.0 - 16.0 G/DL 06/19/2025 3:31 PM CDT [facility] HCT 39.7 36.0 - 47.0 % 06/19/2025 3:31 PM CDT [facility] MCV 91.1 78.0 - 100.0 FL 06/19/2025 3:31 PM CDT [facility] MCH 31.2(H) 27.0 - 31.0 PG 06/19/2025 3:31 PM CDT [facility] MCHC 34.3 33.0 - 36.0 G/DL 06/19/2025 3:31 PM CDT [facility] RDW 11.8 11.5 - 14.5 % 06/19/2025 3:31 PM CDT [facility] PLT 226 150 - 350 x10'3/uL 06/19/2025 3:31 PM CDT [facility] MPV 10.5(H) 7.4 - 10.4 FL 06/19/2025 3:31 PM CDT [facility] DIFFERENTIAL TYPE AUTOMATED DIFFERENTIAL 06/19/2025 3:31 PM CD[address] [facility] NEUTROPHILS % 57.5 % 06/19/2025 3:31 PM CD[address] [facility] LYMPHOCYTES % 32.1 % 06/19/2025 3:31 PM CD[address] [facility] MONOCYTES % 8.4 % 06/19/2025 3:31 PM CDT [facility] EOSINOPHILS % 1.3 % 06/19/2025 3:31 PM CDT [facility] BASOPHILS % 0.5 % 06/19/2025 3:31 [address] [facility] IMMATURE GRANS % 0.2 % 06/19/2025 3:31 PM CDT [facility] ABS. NEUTROPHILS 3.20 1.60 - 8.30 x10'3/uL 06/19/2025 3:31 PM CDT [facility] ABS. LYMPHOCYTES 1.79 0.80 - 4.70 x10'3/uL 06/19/2025 3:31 PM CD[address] [facility] ABS. MONOCYTES 0.47 0.00 - 1.50 x10'3/uL 06/19/2025 3:31 PM CD[address] [facility] ABS. EOSINOPHILS 0.07 0.00 - 0.40 x10'3/uL 06/19/2025 3:31 PM CD[address] [facility] ABS. BASOPHILS 0.03 0.00 - 0.20 x10'3/uL 06/19/2025 3:31 PM CD[address] [facility] ABS. IMMATURE GRANULOCYTES 0.01 0.00 - 0.03 x10'3/uL 06/19/2025 3:31 PM [address] [facility] 06/19/2025 7:35 AM CDT Alida Klein MD LABORATORY Final Result Performing Organization Address City/State/[facility] Co de Phone Number [facility] [address] [place] [address], * MAMMOGRAM GENERIC (SCAN ORDER) (05/01/2025) Anatomical Region Laterality Modality Other 05/01/2025 [facility] Scanned SCANNING Final Resu lt * HEPATITIS C ANTIBODY (03/25/2024 8:46 AM CDT) HEPATITIS C AB NON-REACTI VE NON-REACT ANTOINETTE 03/25/2024 6:23 PM CDT [facility] Comment: ANTIBODIES TO HCV NOT DETECTED. DOES NOT EXCLUDE THE POSSIBILITY OF EXPOSURE TO HCV. 03/25/2024 8:46 AM CDT Alida Klein MD LABORATORY Final Result [facility] [address] [place] [address], [id number] from Last 3 Months or Most Recently Relevant to Health Maintenance Insurance [facility] Care Teams Director Appointment Relationship Specialty Start Date End Date Alida Klein MD [address] [facility] [address] [place] [id number] PCP - General INTERNAL MEDICINE 03/23/24
--- OUTSIDE RECORDS SUMMARY | 2025-08-10 02:05 | XMS_ITS | Data Portability ---
Author Organization [facility] Address [address] [place] [address] Care Team Providers Care Pollution Control Chemist Name Role Phone MONICA PERALTA Primary Care Provider [phone] MAYA LEONARD Neonatal Intensive Care Nurse [phone] Assessment Encounter Date Assessment Date Assessment LastModified by Organization Details LastModified Time 02/24/2023 02/24/2023 Lizy CARRILLO PA-S Not available 02/24/2023 09:01:52 Plan of Treatment Reminders Order Date Submit Date Provider Last Modified By Organization Details Last Modified Time Details Appointments None recorded. Lab vaginal pathogens panel, NELSY+probe, vaginal fluid 2022 023 [facility], [address], [place], [address], 3 06:15:09 TSH, ultra-sens itive, serum 2022 023 [facility], [address], [place], [address], 3 10:08:59 celiac disease comprehens amilcar panel, serum 2022 023 [facility], [address], [place], [address], 3 10:08:59 food allergen panel, serum 2022 023 [facility], [address], [place], [address], 3 10:09:00 H pylori urea breath test, co2 infrared 2022 023 [facility], [address], [place], [address], 3 07:14:05 vitamin D, 25-hydroxy , total, serum 2022 023 [facility], [address], [place], [address], 3 10:09:00 HbA1c (hemoglobi n A1c), blood 2022 023 [facility] In-Office Order, Internal Use Only DO Not Attach Compendium DO Not Attach Compendium, Do Not Delete/merge, [id number] 09:41:51 CBC w/ auto diff 2022 023 [facility], [address], [place], [address], 3 17:10:12 lipid panel, serum 2022 023 [facility], [address], [place], [address], 3 17:10:10 CMP, serum or plasma 2022 023 [facility], [address], [place], [address], 3 17:10:11 Referral business lawyer referral 2014 015 [email or web address] Not available 5 16:57:40 Procedures None recorded. Surgeries None recorded. Imaging None recorded. Medication Orders melatonin 5 mg tablet 2022 023 [id number], [address], [place], [place], [id number], 05/23/202 3 11:16:18 dicyclomin e 20 mg tablet 2022 023 [facility] #98117, [address], [place], [place], [id number], 3 09:33:06 loperamide 2 mg tablet 2022 023 [facility] #00350, [address], [place], [place], [id number], 3 10:55:20 penicillin V potassium 500 mg tablet 2014 015 [facility], [address] [place] [address], [address], 3 14:36:13 Celexa 10 mg tablet 2014 015 [facility], [address] [place] [address], [address], 3 14:35:59 Patient TargetsNo targets recorded. Patient Instructions Encounter Date Encounter Id Patient Instructions Last Modified By Organization Details Last Modified Time 09/27/2014 [id number] plantar fasciitis: care instructions Not available 09/28/2014 15:35:40 plantar fasciitis: exercises Not available 09/28/2014 15:35:40 When You Want to Lose Weight: Care Instructions Not available 09/28/2014 15:35:40 learning about mood disorders Not available 09/28/2014 15:35:40 07/19/2015 [id number] I discussed with patient that this shall be her dentis' christin , but her dentis' won't do it untill a appointment on 07/30/2015, she is advisied to follow up with her dentist office as soon as she can. [email or web address] Not available 07/19/2015 10:31:55 01/01/2023 [id number] painful sex: car e instructions Not available 01/01/2023 09:28:24 A healthy lifestyle: care instructions Not available 01/01/2023 09:01:56 irritable bowel syndrome: care instructions Not available 01/01/2023 09:27:55 learning about the low fodmap diet for irritable bowel syndrome (IBS) Not available 01/01/2023 09:27:55 high-fiber diet: care instructions Not available 01/01/2023 09:27:55 diet for irritable bowel syndrome: care instructions Not available 01/01/2023 09:27:55 02/10/2023 [id number] A healthy lifestyle: care instructions Not available 02/10/2023 11:09:15 02/24/2023 [id number] A healthy lifestyle: care instructions Not available 02/24/2023 08:41:34 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 Plan tar fasciitis Referring Physician: Rodrigo Rizvi, Internal Medicine, Encounter Date: 09/27/2014 Results Created Date Observation Date Name Description Value Unit Range Abnormal Flag Note LastModifiedBy Organization Detail LastModifiedTime 01/02/2001/02/2023 LIPID PANEL cholesterol, total 183.9 mg/dL 140.0- 200.0 Not Available [facility] [address] [place], [address], 01/02/2023 17:10:10 01/02/20 23 01/02/2023 LIPID PANEL triglyceride s 133 mg/dL <=150 Not Available [facility] [address] [place], [address], 01/02/2023 17:10:10 01/02/20 23 01/02/2023 LIPID PANEL HDL cholesterol 50.1 mg/dL 40.0-1 00.0 Not Available [facility] [address] [place], [address], 01/02/2023 17:10:10 01/02/20 23 01/02/2023 LIPID PANEL VLDL cholesterol migdalia 26.60 mg/dL 5.00-4 0.00 Not Available [facility] [address] [place], [address], 01/02/2023 17:10:10 01/02/20 23 01/02/2023 LIPID PANEL LDL chol calc ([facility]) 110.2 Not Available [facility] [address] [place], [address], 01/02/2023 17:10:10 01/02/20 23 01/02/2023 COMP. METAB OLIC PANEL (14) glucose 124 mg/dL 65-99 above high normal ANION GP 26.0 mmol/ L N OSMOL 278.0 mOsM/ L N REFER ENCE RANGE : 275.0 -301. 0 Not Available [facility] [address] [place], [address], 01/02/2023 17:10:11 01/02/20 23 01/02/2023 COMP. METAB OLIC PANEL (14) BUN 16 mg/dL 8-26 Not Available [facility] [address] [place], [address], 01/02/2023 17:10:11 01/02/20 23 01/02/2023 COMP. METAB OLIC PANEL (14) creatinine 0.52 mg/dL 0.50-1 .40 Not Available [facility] [address] [place], [address], 01/02/2023 17:10:11 01/02/20 23 01/02/2023 COMP. METAB OLIC PANEL (14) eGFR 123 mL/mi n/1.7 3 >=60 Not Available [facility] [address] [place], [address], 01/02/2023 17:10:11 01/02/20 23 01/02/2023 COMP. METAB OLIC PANEL (14) BUN/creatini ne ratio 31.0 Not Available [facility] [address] [place], [address], 01/02/2023 17:10:11 01/02/20 23 01/02/2023 COMP. METAB OLIC PANEL (14) sodium 138.0 mmol/ L 136.0- 144.0 Not Available [facility] [address] [place] [address], [address], 01/02/2023 17:10:11 01/02/20 23 01/02/2023 COMP. METAB OLIC PANEL (14) potassium 4.6 mmol/ L 3.5-5. 3 Not Available [facility] [address] [place] [address], [address], 01/02/2023 17:10:11 01/02/20 23 01/02/2023 COMP. METAB OLIC PANEL (14) chloride 102 mmol/ l 101-11 1 Not Available [facility] [address] [place] [address], [address], 01/02/2023 17:10:11 01/02/20 23 01/02/2023 COMP. METAB OLIC PANEL (14) carbon dioxide, total 15.2 mmol/ L 21.0-3 2.0 below low normal Not Available [facility] [address] [place] [address], [address], 01/02/2023 17:10:11 01/02/20 23 01/02/2023 COMP. METAB OLIC PANEL (14) calcium 9.6 mg/dL 8.2-10 .0 Not Available [facility] [address] [place] [address], [address], 01/02/2023 17:10:11 01/02/20 23 01/02/2023 COMP. METAB OLIC PANEL (14) protein, total 7.4 g/dL 6.7-8. 2 Not Available [facility] [address] [place] [address], [address], 01/02/2023 17:10:11 01/02/20 23 01/02/2023 COMP. METAB OLIC PANEL (14) albumin 4.8 g/dL 3.5-5. 5 Not Available [facility] [address] [place], [address], 01/02/2023 17:10:11 01/02/20 23 01/02/2023 COMP. METAB OLIC PANEL (14) globulin, total 2.6 g/dL 1.5-4. 5 Not Available [facility] [address] [place], [address], 01/02/2023 17:10:11 01/02/20 23 01/02/2023 COMP. METAB OLIC PANEL (14) A/G ratio 2.0 Not Available [facility] Department [address] [place], [address], 01/02/2023 17:10:11 01/02/20 23 01/02/2023 COMP. METAB OLIC PANEL (14) bilirubin, total 0.3 mg/dL 0.0-1. 2 Not Available [facility] [address] [place], [address], 01/02/2023 17:10:11 01/02/20 23 01/02/2023 COMP. METAB OLIC PANEL (14) alkaline phosphatase 53.6 IU/L 42.0-1 21.0 Not Available [facility] [address] [place], [address], 01/02/2023 17:10:11 01/02/20 23 01/02/2023 COMP. METAB OLIC PANEL (14) AST (SGOT) 19.7 U/L 10.0-4 2.0 Not Available [facility] [address] [place], [address], 01/02/2023 17:10:11 01/02/20 23 01/02/2023 COMP. METAB OLIC PANEL (14) ALT (SGPT) 23.7 U/L 10.0-6 0.0 Not Available [facility] [address] [place] [address], [address], 01/02/2023 17:10:11 01/02/20 23 01/01/2023 CBC WITH DIFFE RENTI AL/PL ATELE T WBC 6.1 K/uL 3.4-10 .8 Not Available [facility] [address] [place], [address], 01/02/2023 17:10:11 01/02/20 23 01/01/2023 CBC WITH DIFFE RENTI AL/PL ATELE T RBC 5.1 M/uL 4.2-5. 4 Not Available [facility] [address] [place], [address], 01/02/2023 17:10:11 01/02/20 23 01/01/2023 CBC WITH DIFFE RENTI AL/PL ATELE T hemoglobin 14.9 g/dL 11.5-1 5.5 Not Available [facility] [address] [place], [address], 01/02/2023 17:10:11 01/02/20 23 01/01/2023 CBC WITH DIFFE RENTI AL/PL ATELE T hematocrit 45.9 % 36.0-4 8.0 Not Available [facility] [address] [place], [address], 01/02/2023 17:10:11 01/02/20 23 01/01/2023 CBC WITH DIFFE RENTI AL/PL ATELE T MCV 90 fL 80-95 Not Available [facility] [address] [place], [address], 01/02/2023 17:10:11 01/02/20 23 01/01/2023 CBC WITH DIFFE RENTI AL/PL ATELE T MCH 29 pg 27-32 Not Available [facility] [address] [place], [address], 01/02/2023 17:10:11 01/02/20 23 01/01/2023 CBC WITH DIFFE RENTI AL/PL ATELE T MCHC 33 g/dL 32-36 Not Available [facility] [address] [place], [address], 01/02/2023 17:10:11 01/02/20 23 01/01/2023 CBC WITH DIFFE RENTI AL/PL ATELE T RDW 12.5 % 11.5-1 4.5 Not Available [facility] [address] [place], [address], 01/02/2023 17:10:11 01/02/20 23 01/01/2023 CBC WITH DIFFE RENTI AL/PL ATELE T platelets 264 K/uL 155-37 9 MPV 10.1 FL 8.9-1 2.7 N Not Available [facility] [address] [place], [address], 01/02/2023 17:10:11 01/02/20 23 01/01/2023 CBC WITH DIFFE RENTI AL/PL ATELE T neutrophils 55.4 % 40.0-7 4.0 Not Available [facility] [address] [place], [address], 01/02/2023 17:10:11 01/02/20 23 01/01/2023 CBC WITH DIFFE RENTI AL/PL ATELE T lymphs 34.6 % 14.0-4 6.0 Not Available [facility] [address] [place], [address], 01/02/2023 17:10:11 01/02/20 23 01/01/2023 CBC WITH DIFFE RENTI AL/PL ATELE T monocytes 6.7 % 4.0-12 .0 Not Available [facility] [address] [place], [address], 01/02/2023 17:10:11 01/02/20 23 01/01/2023 CBC WITH DIFFE RENTI AL/PL ATELE T eos 1 % 0-5 Not Available [facility] [address] [place], [address], 01/02/2023 17:10:11 01/02/20 23 01/01/2023 CBC WITH DIFFE RENTI AL/PL ATELE T basos 0.7 % 0.0-1. 0 Not Available [facility] [address] [place], [address], 01/02/2023 17:10:11 01/02/20 23 01/01/2023 CBC WITH DIFFE RENTI AL/PL ATELE T neutrophils (absolute) 3.4 K/uL 1.4-7. 0 Not Available [facility] [address] [place], [address], 01/02/2023 17:10:11 01/02/20 23 01/01/2023 CBC WITH DIFFE RENTI AL/PL ATELE T lymphs (absolute) 2.1 K/uL 0.7-3. 1 Not Available [facility] [address] [place], [address], 01/02/2023 17:10:11 01/02/20 23 01/01/2023 CBC WITH DIFFE RENTI AL/PL ATELE T monocytes(ab solute) 0.4 K/uL 0.1-0. 9 Not Available [facility] [address] [place] [address], [address], 01/02/2023 17:10:11 01/02/20 23 01/01/2023 CBC WITH DIFFE RENTI AL/PL ATELE T eos (absolute) 0.1 K/uL 0.0-0. 4 Not Available [facility] [address] [place], [address], 01/02/2023 17:10:11 01/02/20 23 01/01/2023 CBC WITH DIFFE RENTI AL/PL ATELE T baso (absolute) 0.0 K/uL 0.0-0. 3 Not Available [facility] [address] [place], [address], 01/02/2023 17:10:11 01/02/20 23 01/01/2023 CBC WITH DIFFE RENTI AL/PL ATELE T immature granulocytes 1.3 % Not Available [facility] Department [address] [facility], [place], [address], 01/02/2023 17:10:11 01/02/20 23 01/01/2023 CBC WITH DIFFE RENTI AL/PL ATELE T immature grans (abs) 0.1 K/uL Not Available [facility] Department [address] [place], [address], 01/02/2023 17:10:11 01/02/20 23 01/01/2023 CBC WITH DIFFE RENTI AL/PL ATELE T NRBC 0 % Not Available [facility] [address] [place], [address], 01/02/2023 17:10:11 01/02/20 23 01/02/2023 VITAM IN D, 25-HY DROXY vitamin D, 25-hydroxy 61.2 NG/mL 30.0-1 00.0 Vitam in D defic iency has been defin ed by the Insti tute of Medic ine and an Endoc rine Socie ty pract ice guide line as a level of serum 25-OH vitam in D less than 20 ng/mL (1,2) . The Endoc rine Socie ty went on to [facility] er defin e vitam in D insuf ficie ncy as a level betwe en 21 and 29 ng/mL (2). 1. IOM (Inst itute of Medic ine). 2010. Dieta ry refer ence intak es for calci um and D. Sisi escalante [place]: The Natio nal [facility] . 2. Laura chen MF, Constance ey [place], Alexx off-F errar i JORDAN, et al. Evalu ation , treat ment, and preve ntion of vitam in D defic iency : an Endoc rine Socie ty clini migdalia pract ice guide line. JCEM. 2010; 96(7) :1911 -30. Not Available [facility] ([facility]) [address], [place], [address], 01/05/2023 10:09:00 01/02/20 23 01/01/2023 FOOD ALLER [...] ([facility]) [address], [place], [address], 01/05/2023 10:09:00 01/02/20 23 01/05/2023 FOOD ALLER GY PROFI LE B484-RkG egg white <0.10 Not Available [facility] ([facility]) [address] [place], [address], 01/05/2023 10:09:00 01/02/20 23 01/05/2023 FOOD ALLER GY PROFI LE D921-QzD peanut <0.10 Not Available [facility] ([facility]) [address] [place], [address], 01/05/2023 10:09:00 01/02/20 23 01/05/2023 FOOD ALLER GY PROFI LE U653-NoX soybean <0.10 Not Available [facility] ([facility]) [address] [place], [address], 01/05/2023 10:09:00 01/02/20 23 01/05/2023 FOOD ALLER GY PROFI LE R020-WrX milk <0.10 Not Available [facility] ([facility]) [address], [place], [address], 01/05/2023 10:09:00 01/02/20 23 01/05/2023 FOOD ALLER GY PROFI LE Z812-LcD clam <0.10 Not Available [facility] ([facility]) [address] [place], [address], 01/05/2023 10:09:00 01/02/20 23 01/05/2023 FOOD ALLER GY PROFI LE Y843-PxJ shrimp <0.10 Not Available [facility] ([facility]) [address] [place], [address], 01/05/2023 10:09:00 01/02/20 23 01/05/2023 FOOD ALLER GY PROFI LE R083-EeW walnut <0.10 Not Available [facility] ([facility]) [address] [place], [address], 01/05/2023 10:09:00 01/02/20 23 01/05/2023 FOOD ALLER GY PROFI LE H767-PpX codfish <0.10 Not Available [facility] ([facility]) [address] [place], [address], 01/05/2023 10:09:00 01/02/20 23 01/05/2023 FOOD ALLER GY PROFI LE X681-NyK scallop <0.10 Not Available [facility] ([facility]) [address] [place], [address], 01/05/2023 10:09:00 01/02/20 23 01/05/2023 FOOD ALLER GY PROFI LE D401-HdI wheat <0.10 Not Available [facility] ([facility]) [address], [place], [address], 01/05/2023 10:09:00 01/02/20 23 01/05/2023 FOOD ALLER GY PROFI LE Y171-UpO corn <0.10 Not Available [facility] ([facility]) [address], [place], [address], 01/05/2023 10:09:00 01/02/20 23 01/05/2023 FOOD ALLER GY PROFI LE M990-FjD sesame seed <0.10 Not Available [facility] ([facility]) [address] [place], [address], 01/05/2023 10:09:00 01/02/20 23 01/02/2023 TSH RFX ON ABNOR MAL TO FREE T4 TSH 1.030 uIU/m L 0.450- 4.500 Not Available [facility] ([facility]) [address], [place], [address], 01/05/2023 10:08:59 01/02/20 23 01/02/2023 WALESKA C DISEA SE PANEL endomysial antibody IgA NEGATI VE negati ve Not Available [facility] ([facility]) [address] [place], [address], 01/05/2023 10:08:58 01/02/20 23 01/02/2023 WALESKA C [...] ([facility]) [address] [place], [address], 01/05/2023 10:08:58 01/02/20 23 01/02/2023 WALESKA C DISEA SE PANEL immunoglobul in A, qn, serum 174 mg/dL 87-352 Not Available [facility] ([facility]) [address], [place], [address], 01/05/2023 10:08:58 01/02/20 23 01/01/2023 HbA1c (hemo globi n A1c), blood HbA1c 6.3 Not Available In-Office Order Internal Use Only DO Not Attach Compendium DO Not Attach Compendium, Do Not Delete/merge, [id number] 01/01/2023 08:50:48 01/07/2001/08/2023 H PYLOR I BREAT H TEST H pylori breath test NEGATI VE negati ve Not Available [facility] ([facility]) [address], [place], [address], 01/08/2023 07:14:05 02/25/20 23 02/25/2023 NUSWA B VAGIN ITIS PLUS (VG+) atopobium vaginae Low - 0 score Not Available [facility] ([facility]) [address], [place], [address], 02/26/2023 06:15:09 02/25/20 23 02/25/2023 NUSWA B VAGIN ITIS PLUS (VG+) bvab 2 Low - 0 score Not Available [facility] ([facility]) [address] [place], [address], 02/26/2023 06:15:09 02/25/20 23 02/25/2023 NUSWA B VAGIN ITIS PLUS (VG+) megasphaera 1 Low - 0 score Calcu late total score by mariaelena martinez the 3 indiv idual bacte rial vagin [...] prese nce of BV. This test was devel alexed and its perfo rmanc e mikayla cteri stics deter mined by [facility]. It has not been clear ed or appro ganesh by the Food and Drug Admin istra tion. Not Available [facility] ([facility]) [address] [place], [address], 02/26/2023 06:15:09 02/25/20 23 02/25/2023 NUSWA B VAGIN ITIS PLUS (VG+) bryson albicans, NELSY Negati ve negati ve Not Available [facility] ([facility]) [address] [place], [address], 02/26/2023 06:15:09 02/25/20 23 02/25/2023 NUSWA B VAGIN ITIS PLUS (VG+) bryson glabrata, NELSY Negati ve negati ve Not Available [facility] ([facility]) [address] [place], [address], 02/26/2023 06:15:09 02/25/20 23 02/26/2023 NUSWA B VAGIN ITIS PLUS (VG+) trich vag by NELSY Negati ve negati ve Not Available [facility] ([facility]) [address] [place], [address], 02/26/2023 06:15:09 02/25/20 23 02/26/2023 NUSWA B VAGIN ITIS PLUS (VG+) chlamydia trachomatis, NELSY Negati ve negati ve Not Available [facility] ([facility]) [address] [place], [address], 02/26/2023 06:15:09 02/25/20 23 02/26/2023 NUSWA B VAGIN ITIS PLUS (VG+) neisseria gonorrhoeae, NELSY Negati ve negati ve Not Available [facility] ([facility]) [address], [place], [address], 02/26/2023 06:15:09 11/25/19 17 imagi ng/di agnos tic resul t No observ ation record ed. [facility] ([facility]) [address], [place], [address], 01/01/2023 12:38:49 08/21/20 17 XR, chest , 2 view No observ ation record ed. Not Available 2022 12:38:49 08/11/20 22 08/11/2022 imagi ng inter preta tion No observ ation record ed. [facility] [address], [place], [address], 01/01/2023 12:38:48 08/11/20 22 08/11/2022 imagi ng inter preta tion No observ ation record ed. [facility] [address], [place], [address], 01/01/2023 12:38:48 02/27/20 23 09/24/2022 US, pelvi s, trans abdom inal + trans vagin al No observ ation record ed. [facility] [address], [place], [address], 03/04/2023 13:36:54 12/16/19 24 12/16/2023 US, duple x, venou s, lower extre mity No observ ation record ed. [facility] [address], [place], [address], 12/18/2023 10:39:34 12/16/19 24 12/16/2023 trans -thor acic echoc ardio gram (TTE) (PROC ) No observ ation record ed. [email or web address] [facility] [address], [place], [address], 12/17/2023 16:10:03 03/07/20 24 03/07/2024 CT, abdom en + pelvi s, w/ contr ast No observ ation record ed. [email or web address] [facility] [address], [place], [address], 03/14/2024 08:49:28 Result Notes None recorded. 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 Procedures Surgical History Date Name Laterality Status Provider Name and Address Organization Details Recorded Time 01/08/20 24 Total hysterectomy completed MADHAV LOPEZ PA-C Attn: Accounting, [address] , [place], [address], [facility] 01/13/2024 12:11:59 07/10/20 22 Date of Last Pap Smear completed Roxana Cavazos MA [facility] 01/01/2023 08:35:43 09/21/19 10 Cholecystectomy completed Madhav Lopez [facility] 09/27/19 15 15:57:35 09/21/18 90 Tonsillectomy completed Madhav Lopez [facility] 09/27/2014 15:57:35 09/21/18 86 Heart Surgery completed Madhav Lopez [facility] 09/27/2014 15:57:35 Imaging Results None recorded. Procedure Notes None recorded. Medical Equipment None Reported. Allergies No known drug allergies Medications Name Sig Start Date Stop Date Status Note LastModified by Organization Details LastModified Time binaxnow cov kit home sade 01/01 completed Not Available Not Available Not Available flowflex kit test 01/01 completed Not Available Not Available Not Available [facility] 2-pk kit covid-19 02/24 completed Not Available [...] Not Available Not Available loperamide 2 mg tablet Take 1 tablet 4 times a day by oral route as needed for 30 days. 02/10 completed Not Available Not Available Not [...] Available No t Available Vitals Date Recorded Respiratory rate Body weight Heart rate Body mass index (BMI) Body height Body temperature Systolic And Diastolic Provider Name and Address Organization Details Last Updated DateTime 5 16 /min 76790.7 10676 g 72 /min 31.2 kg/m2 167.64 cm 98.1 [degF] 110/60 mm[Hg] Madhav Lopez [facility] 5 15:57:35 Date Recorded Body height Body mass index (BMI) Body weight Heart rate Body temperature Oxygen saturation Oxygen saturation in Arterial blood by Pulse oximetry Systolic And Diastolic Provider Name and Address Organization Details Last Updated DateTime 3 167.64 cm 34.9 kg/m2 40689.9 5 g 83 /min 98.6 [degF] 96 % 96 % 102/60 mm[Hg] Roxana Cavazos MA [facility] 3 08:33:30 Date Recorded Body height Body mass index (BMI) Body weight Heart rate Body temperature Oxygen saturation Oxygen saturation in Arterial blood by Pulse oximetry Systolic And Diastolic Provider Name and Address Organization Details Last Updated DateTime 3 167.64 cm 34.9 kg/m2 98377.7 5 g 79 /min 98.7 [degF] 98 % 98 % 120/80 mm[Hg] Roxana Cavazos MA [facility] 3 10:39:07 Date Recorded Body height Body mass index (BMI) Body weight Heart rate Oxygen saturation Oxygen saturation in Arterial blood by Pulse oximetry Systolic And Diastolic Provider Name and Address Organization Details Last Updated DateTime 3 167.64 cm 34.9 kg/m2 20395.7 5 g 83 /min 96 % 96 % 102/70 mm[Hg] Maegan Beltrán MA [facility] 3 08:31:17 Date Recorded Body weight Oxygen saturation Oxygen saturation in Arterial blood by Pulse oximetry Body height Body temperature Heart rate Body mass index (BMI) Systolic And Diastolic Provider Name and Address Organization Details Last Updated DateTime 5 89872.6 96890 g 98 % 98 % 167.64 cm 98.6 [degF] 72 /min 31.1 kg/m2 98/52 mm[Hg] Nithin Bo [place] [facility] 5 10:01:26 Social History Question Answer Notes LastModified by Organizat ion Details LastModified Time Tobacco Smoking Status Never Smoker Madhav matthews, [place] [facility] 09/27/2014 15:57:35 Do You Have An Advance Directive? No Information n ot available 09/27/2014 What Is Your Level Of Caffeine Consumption? [...] For COVID-19? No Information not available 01/01/2023 What Type Of [...] Information not available 09/27/2014 Do You Use Sunscreen Routinely? No Information not available 09/27/2014 Has Tobacco Cessation Counseling Been Provided? Yes Information not available 02/24/2023 On What Date Was Tobacco Cessation Counseling Provided? 02/24/2023 Information not available 02/24/2023 Sex: Female Functional Status Question Answer Note LastModified by [employer] ion Details LastModified Time Do you use any illicit or recreational drugs? No Information not available 01/01/2023 What is your level of alcohol consumption? Occasional Information not available 01/01/2023 Are you currently employed? Yes Information not available 01/01/2023 What is your exercise level? None Information not available 09/27/2014 Mental Status None recorded. Family History Relationship Description Onset Age of this Age Resolved Age Notes LastModified by Organization Details LastModified Time Mother Asthma Not available 15:57:35 Mother Hypertensive disorder Not available 2014 15:57:35 Father Harmful pattern of use of alcohol Not available 2014 15:57:35 Father Diabetes mellitus Not available 2014 15:57:35 Father Diabetes mellitus Not available 2014 15:57:35 Sister Malignant neoplasm of ovary Not available 2014 15:57:35 Medical History Condition Response Coronary Artery Disease N Other N High Blood Pressure N Atrial Fibrillation N Kidney or Bladder Problems N Thyroid Problems N GI Problems N Depression N COPD N Blood Clots N Skin Problems N Anemia N Heart Attack (MS) N Anxiety Disorder Y Diabetes N Muscle, Joint, or Bone Problems N Seizures/Epilepsy Y Acid Reflux (GERD) Y Cancer N Stroke N Asthma N Allergies N High Cholesterol N Hepatitis N Liver Disease N Headaches N Osteoporosis N Heart Failure N Gynecological History Statement/Question Response Menses Monthly N Date of Last Pap Smear 07/10/2022 Age at Menarche 13 Current Control Method BCPs Age at First Child 19 Obstetrics History GPAL:G 2 P 2 0 0 2 Type Value Full Term 2 Living 2 Total 2 Immunizations Vaccine Type Date Status Note Provider Moe rod and Address Organization Details Recorded Time Influenza, split virus, quadrivalent, preservative 0 completed Rubina Mendoza LPN [place], [place] [facility] 11/27/2020 09:34:58 Influenza, split virus, quadrivalent, PF 9 completed Rubina Mendoza LPN [place], [place] [facility] 11/27/2020 09:34:58 Past Encounters Encounter ID Performer Location Encounter Start Date Encounter Closed Date Diagnosis/Indication Diagnosis SNOMED-CT Code Diagnosis ICD10 Code Diagnosis IMO Codes Diagnosis Note [id number] [facility] [address] [place] [address] 0 09/27/2014 15:37:48 09/27/2014 17:22:46 Depressive disorder 95738480 Plantar fasciitis 140723028 Obesity 920565005 [id number] Rodrigo Rizvi MD [facility] (Adult Med) [address] [place] [address] 19104-081 0 07/19/2015 09:45:41 07/19/2015 13:01:23 Cellulitis of face 193157624 L03.942 [id number] SHERLYN LIVINGSTON [facility] (Adult Med) [address] [place] [address] 57562-770 0 01/01/2023 08:19:10 01/01/2023 14:57:36 Essential hypertension 45030763 I10 BP Today: 102/60c/w losartan 25 mg, prescribed by Cardiology Discussed DASH dietAdvise d 30 minutes of exercise minimum dailyAdvis ed tobacco, alcohol, caffeine all increase BPAdvised goal for BP is <140/90Con tact office if BP is > 140/90 consistent lydiscusse d consequenc es of HTN including kidney, eye, heart damage, stroke, and even RTC 6 months for BP check Depressive disorder 0541 9652 F32.A Stable. PHQ-2 negative in office today.Nia grfifith sertraline 75 mg QD. Being prescribed by OBGYNc/w sertraline Obesity 178687769 E66.9 BMI 34.9 today- Patient given handouts on healthy lifestyle and diet Impaired g lucose tolerance 8287872 R73.03 Last A1C: 6.3 today (01/01/2023 )Current [...] A1c today Irritable bowel syndrome with diarrhea 793035044 K58.0 Patient presenting with abdominal pain almost [...] high fiber diet Vitamin D deficiency 347 16018 E55.9 Vit. D prescribed by her OBGYN- Check Vit. D levels Dyspareunia 77066090 N94 .10 Patient c/o Dyspareuni a x > 6 months. Was following with OBGYN and they couldn't find a cause of the patient's symptoms. Had Pelvic US in Nov. Cysts seen on ovaries. Another US in September 2022. Prior to this the patient has never had pain with sex. She only has pain with sex. - Obtain records of previous workup by OBGYN- Patient given handouts on painful sex [id number] SHERLYN LIVINGSTON (Adult Med) [address] [place] [address] 02/10/2023 10:30:40 02/11/2023 14:04:34 Irritable bowel syndrome with diarrhea 843140024 K58.0 States her abdominal pain and loose [...] for IBS, and high fiber diet Dyspareunia 58923829 N94 .10 Patient c/o Dyspareuni a x [...] Patient given handouts on painful sex Obesity 074475749 E66.9 BMI 34.9 today- Patient given handouts on healthy lifestyle and diet Memory impairment 487027 006 R41.3 Complainin g of forgetfuln ess and short term memory issues for a few years. For example I will go to the store and just completely forget what it is that I am supposed to buy or will forget important ingredient s. Works daily, not a super stressful job [...] with hx of seizures and migraines Insomnia 700382089 G47.0 0 Issues sleeping at night, my daughter was sneaking a boy in at night for the last year so since I found out, I now have a hard time sleeping. Has smoked marijuana in the past to help her sleep but stopped because she didn't know if that was making her memory worse or not.- has not tried melatonin, discussed safety of this supplement , can try this to help at night- has moved her daughter upstairs now too so hoping that helps with trusting her Chronic in terstitial cystitis 085645221 N30.10 Diagnosed with IC by her OBGYN, admits to bladder pain after drinking certain types of liquids and with holding her bladder for long periods of time- continue without tx for now- could be playing role in pelvic pain? Depression screening 171 845415 Z13.31 PHQ 10/30 was negative in office today (0 out of 27) [id number] SHERLYN LIVINGSTON (Adult Med) [address] [place] [address] 02/24/2023 08:23:49 02/25/2023 11:58:09 Dyspareunia 54827566 N94.10 Patient c/o Dyspareuni a x > [...] be called with results when available Obesity 245434980 E66.9 BMI 34.9 today- Patient given handouts on healthy lifestyle and diet Health Concerns Section Related Observation LastModified by Organization Detai ls LastModified Time None Recorded Concern Status LastModified by Organization Details LastModified Time None Recorded Advance Directives Directive N: Payers Insurance Date Sequence Insurance Name Policy Number Policy Barton Covered Member ID Barton Member ID Guarantor Name 02/03/2023 2 UNSPECIFIED REMIT PAYOR Destini Skinner 01/01/2023 1 [employer] [facility] - DOS PRIOR TO 2021 (MEDICAID REPLACEMENT - HMO) Destini Skinner [id number] Destini Skinner 01/01/2023 1 [facility] (MEDICAID HMO) [id number] Destini Skinner [id number] Destini Skinner 04/04/2023 2 [facility] PRIOR TO 04/21/2025 (MEDICAID REPLACEMENT - HMO) [id number] Destini Skinner [id number] Destini Skinner 03/30/2023 1 [facility] (PPO) [id number] Destini Skinner [id number] Destini Skinner Notes Date Note Type Note Provider Name and Address Organization Details Recorded Time 07/19/2015 text/html broken tooth.Can not a appointment to see her dentist untill next month. 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 Patient on Jardiance for pre-diabetes. [...] or dysuria. 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 [...] supposed to buy or will forget important ingredients. Works daily, not a super stressful job but keeps her busy. Admits to increased stress at home and possible inattention when others are talking at times. Issues sleeping at night, my daughter was sneaking a boy in at night for the last year so since I found out, I now have a hard time sleeping. Has smoked marijuana in the past to help her sleep but stopped because she didn't know if that was making her memory worse or not. Admits to intermittent migraines for many years. Denies vision changes, ringing in the ears, ataxia, or other neurological complaints. Denies fever, chills, nausea, vomiting, chest pain, SOB, abdominal pain, constipation, or dysuria. SHERLYN LIVINGSTON Attn: Accounting,[address] [facility], [place], [address], [facility] 02/10/2023 15:15:00 02/24/2023 text/html ROS as noted in the HPI 37 y/o female presents to the office [...] and hematuria. SHERLYN LIVINGSTON Attn: Accounting,[address] [place], [address], [facility] 02/24/2023 13:51:39 OBGyn Episode No OBEpisode recorded.
--- OUTSIDE RECORDS SUMMARY | 2025-08-10 02:05 | XMS_ITS | Encounter Summary ---
Author Organization [facility] Address [facility] [place] [address] Care Team Providers Care Asset Management Lead Name Role Phone Alida Klein MD Primary Care Provider [phone] Encounter Details Date Type Department Care Team (Late st Contact Info) Description 10/19/2024 MyChart Message Enc [facility] Multispecialty Care - [place] [address] [address] [place], [place] [id number] Alida Klein MD [address] [place] [address] [address] [place] [address] Jardiance Social History Tobacco Use Types Packs/Day [...] PM CDT Legal Sex Female 7:40 PM CANDY COUNTER CLERK Gender Identity Female 03/25/2024 3:16 PM CDT Sexual Orientation Straight 03/25/2024 3: 16 PM CDT documented as of this encounter Plan of Treatment Upcoming Encounters Date Type Department Care Team (Late st Contact Info) Description 09/25/2025 8:00 AM CANDY COUNTER CLERK Office Visit [facility] Multispecialty Care - [place] [address] [address] [place] [address] Alida Klein MD [address] [place] [address] [phone] documented as of this encounter Visit Diagnoses Not on filedocumented in this encounter Care Teams Asset Management Lead Relationship Specialty Start Date End Date Alida Klein MD [address] [place] [address] [phone] PCP - General INTERNAL MEDICINE 03/23/24 documented as of this encounter
--- OUTSIDE RECORDS SUMMARY | 2025-08-10 02:05 | XMS_ITS | Clinical Summary ---
Author Organization [facility] Care Team Providers Care Car Shunter Name Role Phone Unavailable Primary Care Provider [...]
--- OUTSIDE RECORDS SUMMARY | 2025-08-10 02:05 | XMS_ITS | Continuity of Care Document ---
Author Organization [facility] [place] Address [address] [place] [address] Care Team Providers Care Holistic Nutritionist Name Role Phone MONICA PERALTA Primary Care Provider [phone] Assessment No assessment recorded. Plan of Treatment Reminders Order Date Submit Date Provider Last Modified By Organization Details Last Modified Time Details Appointments None record ed. Lab None record ed. Referral None record ed. Procedures None record ed. Surgeries None record ed. Imaging None record ed. Medication Orders None record ed. Patient TargetsNo targets recorded. Patient InstructionsNo instructions recorded. Reason for Referral None Reported. Results Created Date Observation Date Name Description Value Unit Range Abnormal Flag Note LastModifiedBy Organization Detail LastModifiedTime 06/22/2006/22/2025 US, pelrui s No observ ation record ed. [email or web address] Maribell [address] [place] [address], [place], [address], 06/22/2025 21:12:46 06/22/20 25 06/22/2025 , trans vagin al No observ ation record ed. [facility] [address], [place], [address], 06/22/2025 15:27:27 Result Notes None recorded. Procedures Surgical History Date Name Laterality Status Provider Name and Address Organization Details Recorded Time 01/08/20 24 TOTAL HYSTERECTOMY, LAPAROSCOPIC, WITH BILATERAL SALPINGECTOMY (SURG) completed Rachel Agarwal [facility] 01/13/2024 14:32:15 05/28/20 23 Date of Last [facility]15[facility]2023 09:31:12 09/21/19 19 [facility] 06/15/2023 09:32:45 09/21/19 19 Colposcopy completed [facility] 06/15/2023 09:35:24 09/21/19 17 procedure on heart completed Shwetastephon Kolb [facility] 05/28/2023 10:22:29 09/21/19 10 cholecystectomy completed [facility] 06/15/2023 09:35:53 09/21/18 90 tonsilectomy/adeno ids completed [facility] 06/15/2023 09:35:35 09/21/18 86 procedure on heart valve completed [facility] 05/28/2023 10:22:18 Imaging Results None recorded. Procedure Notes None recorded. Medical Equipment None Reported. Allergies Allergen ID Allergen Name Allergen Category Reaction Reaction Severity Criticality Documentation Date Start Date Code Code System Note Provider Name and Address Organization Details Recorded Time ethinyl estradiol / levonorge strel medicatio n cough mild Not available 05/28/2023 43904 8 RxNorm Shweta Kolb [facility] 3 10:00:37 52658 citrus bioflavon oids food,medi cation Not available Not available low 08/07/20252024 45714 2 RxNorm unrec ogniz ed react ion (text : Nause a and Vomit ing, code: 05271 000) (from exter nal sour e) Not Available [place] - External Data Service - prod 5 08:56:05 49253 butylscop olamine bromide Not available Not available Not available Not available 08/07/20252024 1851 RxNorm unrec ogniz ed react ion (text : Blurr ed visio n, code: 25755 6008) (from exter nal [facility] e) Not Available [facility] - External Data [...] Not Available No t Available amoxicillin 875 mg-potriciu m clavulanate 125 mg tablet TAKE 1 [...] completed Not Available Not Available Not Available BrittneeW COVID-19 Ag Self Test kit TEST DIRECTED [...] Updated DateTime 06/22/2025 167.64 cm 28.6 kg/m2 41087.85 g 122/77 mm[Hg] Carmela Cho [facility] 06/22/2025 12:49:50 Social History Question Answer Notes LastModified by Organizat ion Details LastModified Time Tobacco Smoking Status Never Smoker Kera matthews, [facility] 06/15/2023 09:35:14 Do You [...] Or The Highest Degree You Have Received? DX35072-4 Information not available 05/28/2023 Are There Any Guns Present In Your Home? No Information not available 05/28/2023 Have You Ever Been Counseled For Unhealthy Alcohol Use? No [email or web address] Information not available 06/15/2023 Do You Use [...] Has Tobacco Cessation Counseling Been Provided? No Information not available 06/15/2023 Have You Used IV Drugs? No Information not available 05/28/2023 Do You Have Difficulty Walking Or Climbing Stairs? No [email or web address] Information not available 06/15/2023 Sex: Unknown Functional Status Question Answer Note LastModified by Organizat ion Details LastModified Time Do you use any illicit or recreational drugs? Yes Information not available 05/28/2023 Do you or have you ever used any other forms of tobacco or nicotine? No [email or web address] Information not available 06/15/2023 What is your level of alcohol consumption? Occasional Information not available 05/28/2023 Are you able to walk independently without assistance or assistive devices? [email or web address] Information not available 05/28/2023 Are you able to care for yourself independently? 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 No [email or web address] Information not available 06/15/2023 What is your exercise level? Occasional Information not available 05/28/2023 Mental Status Question Answer Note LastModified by Organization D etails LastModified Time Do you feel stressed (tense, restless, nervous, or anxious, or unable to sleep at night)? [id number] [email or web address] Information not available 03/27/2025 Family History Relationship [...] ICD10 Code Diagnosis IMO Codes Diagnosis Note [id number] Jake Humphreys MD [place] [address] [address] 06/22/2025 12:11:56 06/22/2025 13:15:34 Cyst of ovary 18762502 N83.209 [id number] This patient is a 40-year-ol d female [...] care in total. We agreed to observe. [id number] Jake Humphreys MD [place] [address] [address] 06/22/2025 13:30:49 06/22/2025 13:47:30 Pain in pelvis 08255404 R10.20 [id number] Health Concerns Section Related Observation LastModified by Organization Detai ls LastModified Time None Recorded Concern Status LastModified by Organization Details LastModified Time None Recorded Payers Encounter Date Sequence Insurance Name Policy Number Policy Barton Covered Member ID Barton Member ID Guarantor Name 06/22/2025 1 [facility] [id number] Destini Skinner [id number] Destini Skinner Notes Date Note Type Note [...] observe. Jake Humphreys MD [address], [place], [address], [facility] 06/22/2025 18:13:20 OBGyn Episode No OBEpisode recorded.
--- OUTSIDE RECORDS SUMMARY | 2025-08-10 02:05 | XMS_ITS | Encounter Summary ---
Author Organization [facility] Address [facility] [place] [address] Care Team Providers Care Sleeve Tailor Name Role Phone Alida Klein MD Primary Care Provider [phone] Encounter Details Date Type Department Care Team (Late st Contact Info) Description 05/04/2024 MyChart Message Enc [facility] Multispecialty Care [facility] [address] [place] [address] [address] [place] [address] Alida Klein MD [address] [place] [address] [address] [place] [address] Ramón Social History Tobacco Use Types Packs/Day [...] PM CDT Legal Sex Female 7:40 PM EXT JS DEVELOPER Gender Identity Female 03/25/2024 3:16 PM CDT Sexual Orientation Straight 03/25/2024 3: 16 PM CDT documented as of this encounter Plan of Treatment Upcoming Encounters Date Type Department Care Team (Late st Contact Info) Description 09/25/2025 8:00 AM EXT JS DEVELOPER Office Visit [facility] Multispecialty Care - [place] [address] [address] [place] [address] Alida Klein MD [address] [address] documented as of this encounter Visit Diagnoses Not on filedocumented in this encounter Additional Health Concerns Infection Onset Date Last Indicated Resolved Time COVID-19 Rule Out 09/30/2024 09/30/2024 09/30/2024 3:56 PM EXT JS DEVELOPER documented as of this encounter Care Teams Sleeve Tailor Relationship Specialty Start Date End Date Alida Klein MD [address] [place] [address] PCP - General INTERNAL MEDICINE 03/23/24 documented as of this encounter
--- OUTSIDE RECORDS SUMMARY | 2025-08-10 02:06 | XMS_ITS | Encounter Summary ---
Author Organization [facility] Address [facility] [place] [address] Care Team Providers Care Managing Jeweler Name Role Phone Alida Klein MD Primary Care Provider [phone] Encounter Details Date Type Department Care Team (Late st Contact Info) Description 05/20/2024 MyChart Message Enc [facility] Multispecialty Care - [place] [address] [address] [address] [place], [place] [phone] Alida Klein MD [address] [place] [address] [address] [place], [place] [id number] Lab results. 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 Sex Female 7:40 PM HAND EDGE BANDER Gender Identity Female 03/25/2024 3:16 PM CDT Sexual Orientation Straight 03/25/2024 3: 16 PM CDT documented as of this encounter Plan of Treatment Upcoming Encounters Date Type Department Care Team (Late st Contact Info) Description 09/25/2025 8:00 AM HAND EDGE BANDER Office Visit [facility] Medical Group Multispecialty Care - [place] [address] [address] [place] [address] Alida Klein MD [address] [place] [address] documented as of this encounter Visit Diagnoses Not on filedocumented in this encounter Additional Health Concerns Infection Onset Date Last Indicated Resolved Time COVID-19 Rule Out 09/30/2024 09/30/2024 09/30/2024 3:56 PM HAND EDGE BANDER documented as of this encounter Care Teams Managing Jeweler Relationship Specialty Start Date End Date Alida Klein MD [address] [place] [address] PCP - General INTERNAL MEDICINE 03/23/24 documented as of this encounter
--- OUTSIDE RECORDS SUMMARY | 2025-08-10 02:06 | XMS_ITS | Encounter Summary ---
Author Organization [facility] Address [facility] [place] [address] Care Team Providers Care Scuba Diver Name Role Phone Alida Klein MD Primary Care Provider [phone] Encounter Details Date Type Department Care Team (Late st Contact Info) Description 05/18/2024 MyChart Message Enc [facility] Multispecialty Care - [place] [address] [place] [address] [address] [place] [address] Alida Klein MD [address] [place] [address] [address] [place] [address] Lab results 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 Sex Female 7:40 PM CAPACITY MANAGER Gender Identity Female 03/25/2024 3:16 PM CDT Sexual Orientation Straight 03/25/2024 3: 16 PM CDT documented as of this encounter Plan of Treatment Upcoming Encounters Date Type Department Care Team (Late st Contact Info) Description 09/25/2025 8:00 AM CAPACITY MANAGER Office Visit [facility] Medical [facility] Multispecialty Care [place] [address] [address] [place] [address] Alida Klein MD [address] [place] [phone] documented as of this encounter Visit Diagnoses Not on filedocumented in this encounter Additional Health Concerns Infection Onset Date Last Indicated Resolved Time COVID-19 Rule Out 09/30/2024 09/30/2024 09/30/2024 3:56 PM CAPACITY MANAGER documented as of this encounter Care Teams Scuba Diver Relationship Specialty Start Date End Date Alida Klein MD [address] [place] [id number] PCP - General INTERNAL MEDICINE 03/23/24 documented as of this encounter
--- OUTSIDE RECORDS SUMMARY | 2025-08-10 02:06 | XMS_ITS | Encounter Summary ---
Author Organization [facility] Address [facility] [place] [address] Care Team Providers Care Dental Lab Technician Name Role Phone Alida Klein MD Primary Care Provider [phone] Encounter Details Date Type Department Care Team (Late st Contact Info) Description 05/21/2024 MyChart Message Enc [facility] Medical [facility] Multispecialty Care - [place] [address] [place] [address] [address] [place], [place] [id number] Alida Klein MD [address] [place] [address] [address] [place] [address] STD test result Social History Tobacco Use [...] PM CDT Legal Sex Female 7:40 PM PIPE BOWL PAINT TRIMMER Gender Identity Female 03/25/2024 3:16 PM CDT Sexual Orientation Straight 03/25/2024 3: 16 PM CDT documented as of this encounter Plan of Treatment Upcoming Encounters Date Type Department Care Team (Late st Contact Info) Description 09/25/2025 8:00 AM PIPE BOWL PAINT TRIMMER Office Visit [facility] Medical Group Multispecialty Care - [place] [address] [address] [place] [address] Alida Klein MD [address] [place] [phone] documented as of this encounter Visit Diagnoses Not on filedocumented in this encounter Additional Health Concerns Infection Onset Date Last Indicated Resolved Time COVID-19 Rule Out 09/30/2024 09/30/2024 09/30/2024 3:56 PM PIPE BOWL PAINT TRIMMER documented as of this encounter Care Teams Dental Lab Technician Relationship Specialty Start Date End Date Alida Klein MD [address] [place] [id number] PCP - General INTERNAL MEDICINE 03/23/24 documented as of this encounter
--- OUTSIDE RECORDS SUMMARY | 2025-08-10 02:06 | XMS_ITS | Encounter Summary ---
Author Organization [facility] Address [facility] [place] [address] Care Team Providers Care Correctional Food Service Supervisor Name Role Phone Alida Klein MD Primary Care Provider [phone] Encounter Details Date Type Department Care Team (Late st Contact Info) Description 06/06/2025 MyChart Message Enc [facility] Medical Group Multispecialty Care - [place] [address] [place] [address] [address] [place] [address] Alida Klein MD [address] [place] [address] [address] [place] [address] Nausea Social History Tobacco Use Types Packs/Day [...] PM CDT Legal Sex Female 7:40 PM PATHOLOGY TECHNICIAN Gender Identity Female 03/25/2024 3:16 PM CDT Sexual Orientation Straight 03/25/2024 3: 16 PM CDT documented as of this encounter Plan of Treatment Upcoming Encounters Date Type Department Care Team (Late st Contact Info) Description 09/25/2025 8:00 AM PATHOLOGY TECHNICIAN Office Visit [facility] Medical Group Multispecialty Care - [place] [address] [address] [place] [address] Alida Klein MD [address] [place] [address] [phone] documented as of this encounter Visit Diagnoses Not on filedocumented in this encounter Care Teams Correctional Food Service Supervisor Relationship Specialty Start Date End Date Alida Klein MD [address] [place] [address] [phone] PCP - General INTERNAL MEDICINE 03/23/24 documented as of this encounter
--- NOTE | 2025-08-10 07:06 | WPDHPUPDATE1 ---
History and Physical Update Update Date/Time: 08/10/25 07:06 History and Physical has been reviewed, including an updated exam of the patient. There are NO changes in the patient's condition. Risks, benefits, and alternatives have been discussed and questions answered. Patient agrees to proceed with procedure.
[2025-08-10] MEDS: LACTATED RINGERS 1,000 ML 30 ML IV CONT ×2 (10:30→12:55)
[2025-08-10] MEDS: ACETAMINOPHEN 500 MG TABLET 1000 MG PO (10:38)
[2025-08-10] MEDS: KETOROLAC 15 MG/ML VIAL (*BKC) IV PUSH (10:38)
--- NOTE | 2025-08-10 11:04 | WPDANESEPPF ---
Anes - Initial Pre Proc Eval Procedure: Operation Date: 08/10/25 12:00 Proposed Procedures p Laparoscopic Left Salpingo Oophorectomy - Jeffrey Ybarra MD Date/Time: 08/10/25 11:04 Surgeon: Jeffrey Ybarra MD Pre Op Diagnosis: Lt Ovarian Cyst, Pelvic Pain Patient Data Age: 40 Gender: F Height: 1.65 m Weight: 79.38 kg Allergies Allergy/AdvReac Type Severity Reaction Status Date / Time scopolamine (From AdvReac Intermediate visual Verified 08/10/25 10:54 Transderm-Scop) changes Greene And Derivatives AdvReac Mild Nausea and Verified 08/10/25 10:54 Vomiting Home Medications ?Medication ?Instructions ?Recorded ?Confirmed ?Type aspirin 81 mg tablet,delayed 81 mg PO DAILY 05/06/20 07/26/25 History release (Adult Low Dose Aspirin) ergocalciferol (vitamin D2) 1,250 1,250 mcg PO WEEKLY 05/06/20 07/26/25 History mcg (50,000 unit) capsule (Vitamin D2) acyclovir 800 mg tablet 800 mg PO HS 01/01/25 07/26/25 History oxybutynin chloride 10 mg 10 mg PO HS 01/01/25 07/26/25 History tablet,extended release 24 hr sertraline 100 mg tablet 50 mg PO QHS 01/19/25 07/26/25 History metoclopramide HCl 10 mg tablet 10 mg PO Q6H PRN nausea and 06/13/25 07/26/25 Rx (Reglan) vomiting #14 tabs omeprazole 40 mg capsule,delayed 40 mg PO HS 07/26/25 07/26/25 History release semaglutide 0.25 mg or 0.5 mg (2 0.25 mg subcut WEEKLY 07/26/25 07/26/25 History mg/3 mL) subcutaneous pen injector (Ozempic) hydrocodone 5 mg-acetaminophen 325 1 tablet PO Q4H PRN pain #20 tabs 08/10/25 Rx mg tablet Laboratory Tests 08/10/25 10:48 POC Capillary Glucose 83 mg/dl (65-105) Patient hx anesthesia problems: post op nausea/vomiting Family hx anesthesia problems: none Results Review: All pre-operative results and documents have been reviewed as part of the pre-operative evaluation. [facility] Past Medical History Medical History (Updated 08/10/25 @ 11:08 by Ace Seals DO) Diabetes type 2, controlled Interstitial cystitis Pulmonary stenosis Depression with anxiety GERD (gastroesophageal reflux disease) Hx of pulmonary artery stenosis Surgical History Surgical History Pulmonary valve replaced Hx of cholecystectomy Hx of mitral valve replacement Hx of tonsillectomy Family History Family History Father Diabetes mellitus Lung cancer Social History Social History Smoking status: Never smoker Second hand tobacco smoke exposure: No Alcohol intake: current Alcohol use details: socially Substance use: current Substance use type: marijuana Other substance usage details: daily use both edibles and smoking Do You Feel Safe in your Home?: Yes Lack of Transportation: No Lack of Food: Sometimes True Current Housing: I Have Housing Concerned About Future Housing: No Difficulty Paying Gas/Electric Bills: YES Difficulty Paying for Meds: YES Currently Unemployed: No Education: High School Diploma/GED Living arrangements: alone Gender identity (if verbalized by the patient): Female Spiritual care concerns: No Anes - Eval Final PreProcedure Day of Procedure 08/10/25 11:04 Patient weight: overweight Heart: regular rate and rhythm Lungs: clear to auscultation Airway: Mallampati scale class II Neurological: alert and oriented Last oral intake: >/= 8 hours ASA classification: III Emergent: no Anesthetic plan: proceed Anesthesia type and monitoring: general ETT and standard monitoring Results Review: All pre-operative results and documents have been reviewed as part of the pre-operative evaluation. Informed Consent: The patient's anesthetic plan and its attendant risks and benefits were discussed with the patient/family/POA. Questions were solicited and answers provided to the satisfaction of the patient/family/POA.
--- NOTE | 2025-08-10 12:40 | S_PTH ---
PATIENT: Destini Skinner LOC: [facility] U#:[id number] AGE/SX: 40/F ROOM: RE08/10/[address]: Jeffrey Ybarra MD : 1985 BED: DIS: 08/10/2025 SPEC #: [id number] RECD: 08/10/25 13:15 STATUS: JOCELYN REQ #: [id number] JONO: 08/10/25 12:[address]: Jeffrey Noble DEPT: [facility] Surgical RECD BY: Elizabeth Steele ENTERED: 08/10/25 13:16 SP TYPE: Surgical OTHR DR: Alida KleinMD Tissues: A - Ovary Procedures: Hematoxylin and Eosin Stain Gross and Microscopic Level 4
--- NOTE | 2025-08-10 12:41 | W.PM.PROC2 ---
Procedure Note - Detailed Date of Procedure 08/10/25 Pre-op Diagnosis Lt Ovarian Cyst, Pelvic Pain Post-op Diagnosis Other (Left ovarian cyst and pelvic pain with endometriosis) Procedure Performed Laparoscopy with destruction of endometriosis left oophorectomy Surgeon Jeffrey Ybarra MD Anesthesia General Indications 40-year-old female status post hysterectomy RSO with a left ovarian cyst and pelvic pain Findings Absent right ovary and tube absent left tube absent uterus small areas of endometriosis along the left and right uterosacral ligament. A benign-appearing left ovarian cyst Description of Procedure Patient was prepped draped in normal sterile fashion weighted speculum placed posterior fornix vagina sponge stick placed bladder anterior clear urine the weighted speculum was the gloves were changed. A supraumbilical incision made the Veress needle passed in the abdomen. Abdomen filled with CO2 gas 15. The 5mm trocar advanced under assuring injury. A suprapubic incision made and a 5mm trocar advanced in the direct visualization a left lower quadrant incision made and the 10mm trocar advanced under direct visualization assuring no injury the above findings were seen. Adjusting the monopolar cautery to 35 w per 2nd the areas of endometriosis along the left and right uterosacral ligaments were desiccated without difficulty. The left ovary was skeletonized infundibulopelvic clamped burned cut placed in Endo-Catch and removed through the left lower quadrant irrigation undertaken to clear and no other abnormalities were seen. The liver edge appeared within limits as did the appendix. The lower sites removed. The gas removed from the abdomen. The upper sites removed the incisions closed with 4 Monocryl patient was awakened went recovery in satisfactory condition. All sponge, needle, instrument counts were correct. There were immediate complications Estimated Blood Loss 5 Drains No Packing No Pathology Yes Complications No immediate complications Condition Stable Disposition PACU
[2025-08-10] MEDS: fentaNYL CITRATE INJ (*CRX) 100 MCG/2 ML VIAL 25 MCG IV PUSH ×4 (13:18→13:51)
[2025-08-10] MEDS: oxyCODONE HCL (*CRX) 5 MG TAB IR PO (14:26)
== END 2025-08-10 15:07 | disposition home or self-care (01) ==
PROVIDERS: PCP Internal Medicine; Visit Provider Obstetrics & Gynecology
PROC: (CPT 49320; principal; 2025-08-10 12:00)
DX: N83.12 Corpus luteum cyst of left ovary (principal); N80.3C3 Endometriosis of bilateral uterosacral ligament(s), unspecified depth; E11.9 Type 2 diabetes mellitus without complications; F12.90 Cannabis use, unspecified, uncomplicated
CPT/HCPCS: 58661; 58662; 82948; 88305; A9270; J1100; J1200; J1885; J2003; J2250; J2405; J2704; J3010; J7120

== ENCOUNTER 2025-09-14 13:41 | Emergency (ER) | payer OTHER, SELFPAY ==
--- OUTSIDE RECORDS SUMMARY | 2025-08-07 02:39 | XMS_ITS | Continuity of Care Document ---
Author Organization [facility] Address [address] [place] [address] Phone Care Team Providers Care Vp Corporate Development Name Role Phone Zion TYLER, FACBasilio Unavailable [...] Diagnoses Date Provider Providers Copied on Encounter [facility], [facility] [place], [place], [id number] , tel: [phone] SL [place] No Information 5 Zion Richmond. [address] [place] [address], [place], [place], [id number] , [place]. tel: [phone] OFFICE/OUTPA TIENT VISIT, EST [facility], [address] [place] [address], [id number] , tel: [phone] [facility] [place] follow up (chief complaint) Essential (primary) hypertensionObesity, unspecifiedOther fatiguePrediabetesSle ep apnea, unspecifiedStenosis of pulmonary artery 5 Zion Richmond. [address] [place], [place], [id number] , [place]. tel: [phone] Referring Provider: Alida Klein, [address], [place], [address]. tel:[phone] [facility], [address] [place] [address], [id number] , tel: [phone] [facility] [place] No Information Zion Richmond. [facility] [place], [place], [id number] , . tel: [phone] [facility], [address] [place] [address], [id number] , tel: [phone] [facility] [place] Stenosis of pulmonary arteryFatigueHTNEdema ObesityPrediabetesSle ep apnea 5 Zion Richmond. [facility] [place], [place], [id number] , . tel: [phone] Family History Family Member Type Diagnosis Age At Onset No Information Payers Payer name Insurance type Covered democrat ID Niesha couch(s) [facility] CI [id number] Social History Type Description Quantity Date Captured [...]
--- OUTSIDE RECORDS SUMMARY | 2025-08-07 02:39 | XMS_ITS | Continuity of Care Document ---
Author Organization [facility] Address [address] [place] [address] Phone Care Team Providers Care Stone Sandblaster Name Role Phone Zion TYLER, FACBasilio Unavailable [...] Diagnoses Date Provider Providers Copied on Encounter [facility], [facility] [place], [place], [id number] , tel: [phone] [facility] [place] No Information 5 Zion Richmond. [address] [place] [address], [place], [place], [id number] , [place]. tel: [phone] OFFICE/OUTPA TIENT VISIT, EST [facility], [address] [place] [address], [id number] , tel: [phone] [facility] [place] follow up (chief complaint) Essential (primary) hypertensionObesity, unspecifiedOther fatiguePrediabetesSle ep apnea, unspecifiedStenosis of pulmonary artery 5 Zion Richmond. [address] [place], [place], [id number] , [place]. tel: [phone] Referring Provider: Alida Klein, [address], [place], [address]. tel:[phone] [facility], [address] [place] [address], [id number] , tel: [phone] [facility] [place] No Information Zion Richmond. [facility] [place], [place], [id number] , . tel: [phone] [facility], [address] [place] [address], [id number] , tel: [phone] [facility] [place] Stenosis of pulmonary arteryFatigueHTNEdema ObesityPrediabetesSle ep apnea 5 Zion Richmond. [facility] [place], [place], [address] , . tel: [phone] Family History Family Member Type Diagnosis Age At Onset No Information Payers Payer name Insurance type Covered constitution party ID Niesha couch(s) [facility] CI [id number] Social History Type Description Quantity Date Captured [...]
--- NOTE | ~2025-09-14 | CT_ITS ---
EXAMINATION: CT abdomen pelvis w con DATE: 09/14/2025 14:37 INDICATION: Left flank pain TECHNIQUE: Computed tomography (CT) of the abdomen and pelvis was performed with 100 cc Omnipaque 350 intravenous contrast. The dose-length product was 364.92 mGy-cm. Automated exposure control and iterative reconstruction technique were employed. COMPARISON: CT dated 04/09/2025 FINDINGS: Lung bases unremarkable. Heart size normal. No significant pleural or pericardial effusion. Fatty infiltration of the liver. Status post cholecystectomy. The spleen, pancreas, left adrenal gland are unremarkable. Small right adrenal myelolipoma. There is a 4 mm nonobstructing right renal ston e. There are pelvic phleboliths. No definite ureteral stone or hydronephrosis. Small low-density lesions in both kidneys, most likely benign cysts. Nonobstructive bowel gas pattern. No free air or free fluid. No lymphadenopathy. No significant vascular abnormality. IMPRESSION: 1. Nonobstructing right nephrolithiasis. Reviewed, dictated and finalized at location [facility]
--- OUTSIDE RECORDS SUMMARY | 2025-09-14 13:42 | XMS_ITS | Clinical Summary ---
Author Organization [facility] [employer] Address [address] [place] [address] Care Team Providers Care [place] Underwriter Name Role Phone Rodrigo Rizvi MD Primary Care Provider [phone] Source Comments [facility],non-owned Affiliates and Associated Physician Practices is amultiple site organization consisting of ambulatory clinics and hospital sitesin [place], [place], [place] and [place]. This disclosure is being madepursuant to the Care Everywhere program and may not contain all information available regarding this patient. Last updated 18.[facility] [employer] Allergies No known active allergies Medications * Be aware that medications may not be up to date on this document. Alwaysverify current medications with the patient. 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 Gender Identity Female 02/12/2022 10:37 AM CDT [...] patient's age to complete this topic Insurance [facility] SELF PAY NO INSURANCE Member Subscriber Plan / Payer (Ef fective for All Dates) Name:Destini Maza Member ID:Not on file Relation to Subscriber:Not on file Name:SHAUNNADESTINI Subscriber ID:Not on file (Home) Address: [address] [place], [place] [id number] Payer ID:Not on file Group ID:Not on file Type:Self Pay Address: [facility] CARE [facility] PLAN [employer] SELF PAY NO INSURANCE Member Subscriber Plan / Payer (Ef fective for All Dates) Name:Destini Maza Member ID:Not on file Relation to Subscriber:Not on file Name:DESTINI MAZA Subscriber ID:Not on file Address: [address] [place] [address] Payer ID:Not on file Group ID:Not on file Type:Self Pay Address: [place] [facility] CARE SELF PAY NO INSURANCE Member Subscriber Plan / Payer (Ef fective for All Dates) Name:Destini Maza Member ID:Not on file Relation to Subscriber:Not on file Name:DESTINI MAZA Subscriber ID:Not on file Address: [address] [place] [address] Payer ID:Not on file Group ID:Not on file Type:Self Pay Address: [place] [facility] SELF PAY NO INSURANCE Member Subscriber Plan / Payer (Ef fective for All Dates) Name:Destini Maza Member ID:Not on file Relation to Subscriber:Not on file Name:DESTINI MAZA Subscriber ID:Not on file Address: [address] [place] [phone] Payer ID:Not on file Group ID:Not on file Type:Self Pay Address: [place], [place] * Guarantor: DESTINI MAZA Account Type Relation to Patient Date of Phone Billing Address Personal/Family Spouse Care Teams Va Underwriter Relationship Specialty Start Date End Date Rodrigo Rizvi MD [address] [place] [phone] PCP - General 04/27/18
--- OUTSIDE RECORDS SUMMARY | 2025-09-14 13:42 | XMS_ITS | Encounter Summary ---
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 Gender Identity Female 03/25/2024 3:16 PM CDT Sexual Orientation Straight 03/25/2024 3: 16 PM CDT documented as of this encounter Plan of Treatment Upcoming Encounters Date Type Department Care Team (Late st Contact Info) Description 09/25/2025 8:00 AM COMMERCIAL DIVER Office Visit [facility] Medical Group Multispecialty Care [place] [address] [address] [place] [address] Alida Klein MD [address] [place] [address] [phone] documented as of this encounter Visit Diagnoses Not on filedocumented in this encounter Care Teams Assignment Officer Relationship Specialty Start Date End Date Alida Klein MD [address] [place] [address] [phone] PCP - General INTERNAL MEDICINE 03/23/24 documented as of this encounter
--- OUTSIDE RECORDS SUMMARY | 2025-09-14 13:42 | XMS_ITS | Clinical Summary ---
Author Organization [facility] Address [address] [place] [address] Care Team Providers Care Civil Preparedness Coordinator Name Role Phone Alida Klein MD Primary Care Provider [phone] Allergies Active Allergy Reactions Criticality Noted Date Comments Garfield Nausea and Vomiting Low 06/13/2025 Scopolamine Blurred [...] BY MOUTH ONCE DAILY NEEDED 30 tablet 08/24/20 25 Active metoclopramide (REGLAN) 5 MG tabletIndicatio ns:Nausea TAKE 1 TABLET BY MOUTH ONCE DAILY NEEDED 30 tablet 07/25/20 25 025 Discontinued Active Problems Problem Noted [...] Encounters Date Type Department Care Team Description 09/11/2025 [facility] [place] - [address] [place] [address] Alida Klein MD Concerns 08/10/2025 Scan [facility] Scanned, [facility] Lab (SCAN); Procedure (SCAN); Pathology (SCAN) 08/08/2025 Scan [facility] Scanned, [facility] 08/02/2025 Scan [facility] Scanned, [facility] (SCAN) 07/19/2025 7:30 AM CDT Laboratory Only [facility] [place] - [place] [address] [place] [address] Alida Klein MD 07/19/2025 - 07/19/2025 11:59 PM CDT Hospital Encounter [facility] [place] [address] Alida Klein MD Discharge Disposition: Home or Self Care (Routine Discharge) 07/19/2025 Results [facility] [place] - [place] [address] [place] [address] Rosalba Morales NP THYROXINE, FREE (FT4), TSH W/REFLEX, FREE T3 07/19/2025 Travel 07/14/2025 Scan [facility] Scanned, Doc [facility] Group Image (SCAN) 06/19/2025 7:00 AM CDT Office Visit [facility] [place] [address] [place] [address] Alida Klein MD Physical; GERD (/); Follow Up (Follow up of chronic medical issues) 06/19/2025 Results Follow-Up [facility] [address] [place] [address] Alida Klein MD URINALYSIS, ALBUMIN/CREATININE RATIO, RANDOM URINE, CBC W/DIFF AUTOMATED, Additional followed-up results: 5 06/19/2025 Travel from Last 3 Months Immunizations Immunization [...] from your doctor or pharmacy? Never 06/19/2025 [facility] Utilities Answer Date Recorded In the past 12 months has e [employer], gas, oil, or water [employer] threatened to shut off services in your [...] week 06/19/2025 How often do you attend [facility] or shinto services? Patient unable to answer 06/19/2025 Do you belong to any clubs o r organizations such as yazdanism groups, unions, fraternal or athletic groups, or [...] Recorded Patient Health Questionnaire-2 Score 2 06/19/2025 [facility] - Occupational Stress [...] any time in the past 12 m [facility], were you homeless or living in a halfway (including now)? 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 Office Visit [facility] [place] [address] [place] [address] [address] [place], [place] [id number] Alida Klein MD [address] [facility] [address] [place] [address] Health Maintenance Due Date Last Done Comments Diabetes: Retinopathy Eye Exam 2003 Hepatitis B Vaccines (1 of 3 - 19+ 3-dose series) 2004 HPV Vaccines (1 - 3-dose SCDM series) 2012 COVID-19 Vaccine ( season) 2025 07/13/2021, 12/29/2020, 12/02/2020 Influenza Adult (#1) 2025 06/21/2024, 07/01/2023, 07/13/2022, Additional history exists Hemoglobin A1C 12/17/2025 06/19/2025, 12/2 11/2023, 03/25/2024, Additional history exists Annual Physical 06/19/2026 06/19/2025, 03/23/2024 Kidney Health Evaluation 06/19/2026 06/19/2025 Lipid Panel 06/19/2026 06/19/2025, 03/25/2024 Mammogram Screening 05/01/2027 05/01/2025, DTaP, Tdap and Td Vaccines (3 - Td or Tdap) 02/19/2034 02/20/2024, 11/10/2020 Pneumococcal Vaccine: Pediatrics (0 to 5 Years) and At-Risk Patients (6 to 49 Years) Completed 05/18/2024 Hepatitis C Completed 03/27/2025, 03/25/2024 PHQ-2 (Physician Chitina) Completed 06/19/2025 Hepatitis A Vaccines Aged Out [...] Procedure Name Priority Date/Time Associated Diagnosis Comments PATHOLOGY GENERIC (SCAN ORDER) 08/10/2025 OUTSIDE LAB (SCAN ORDER) 08/10/2025 OUTSIDE LAB (SCAN ORDER) 08/10/2025 PROCEDURE GENERIC (SCAN ORDER) 08/10/2025 OUTSIDE LAB (SCAN ORDER) 08/02/2025 TSH W/REFLEX Routine 07/19/2025 7:44 AM CDT Drug therapy Screening for hypothyroidism THYROXINE, FREE (FT4) Routine 07/19/2025 7:44 AM CDT Drug therapy Screening for hypothyroidism FREE T3 Routine 07/19/2025 7:44 AM CDT Drug therapy Screening for hypothyroidism IMAGE GENERIC 07/14/2025 THYROXINE, FREE (FT4) Routine 06/19/2025 7:35 AM CDT HEMOGLOBIN GLYCOSYLATED A1C Routine 06/19/2025 7:35 AM CDT Annual physical [...] Recently Relevant to Health Maintenance Results * PATHOLOGY GENERIC (SCAN ORDER) (08/10/2025) 08/10/2025 [employer] Scanned SCANNING Final Resu lt * OUTSIDE LAB (SCAN ORDER) (08/10/2025) Only the most recent of3 resultswithin the time period is included. 08/10/2025 [facility] Scanned SCANNING Final Resu lt * PROCEDURE GENERIC (SCAN ORDER) (08/10/2025) 08/10/2025 [employer] [facility] Scanned SCANNING Final Resu lt * TSH W/REFLEX (07/19/2025 7:44 AM CDT) Only the most recent of2 resultswithin the time period is included. TSH 0.628 0.358 - 3.740 uIU/ML 07/19/2025 3:53 PM CDT [facility] 07/19/2025 7:44 AM CDT Alida Klein MD LABORATORY Final Result Performing Organization Address [facility] de Phone Number [facility] [address] [place] [address], [place] [phone] * FREE T3 (07/19/2025 7:44 AM CDT) FREE T3 2.7 2.2 - 3.9 PG/ML 07/19/2025 7:47 PM CDT [facility] 07/19/2025 7:44 AM CDT Alida Klein MD LABORATORY Final Result Performing Organization Address [facility] de Phone Number [facility] [address] [place] [address], [phone] * THYROXINE, FREE (FT4) (07/19/2025 7:44 AM CDT) Only the most recent of2 resultswithin the time period is included. FREE T4 0.98 0.76 - 1.46 NG/DL 07/19/2025 3:53 PM CDT [facility] 07/19/2025 7:44 AM CDT Alida Klein MD LABORATORY Final Result Performing Organization Address [facility] de Phone Number [facility] [address] [place] [address], [place] [phone] * IMAGE GENERIC (07/14/2025) Anatomical Region Laterality Modality Other 07/14/2025 [facility] Scanned SCANNING Final Resu lt * HEMOGLOBIN, GLYCOSYLATED (06/19/2025 7:35 AM CDT) HGB A1C 5.1 4.5 - 6.2 % 06/19/2025 4:02 PM CDT [facility] ESTIMATED AVG GLUCOSE 100 74 - 106 MG/DL 06/19/2025 4:02 PM CDT [facility] 06/19/2025 7:35 AM CDT Alida Klein MD LABORATORY Final Result [facility] [address] [place] [address], * (ABNORMAL) URINALYSIS (06/19/2025 7:35 AM CDT) COLOR (U) YELLOW 06/19/2025 3:57 PM CDT [facility] TRANSPARENCY CLOUDY(A) CLEAR 06/19/2025 3:57 PM CDT [facility] SPECIFIC GRAVITY (U) >1.030 1.003 - 1.040 06/19/2025 3:57 PM CDT [facility] U PH 6.0 5.0 - 9.0 06/19/2025 3:57 PM CDT [facility] PROTEIN RANDOM (U) TRACE(A) NEGATIVE 06/19/2025 3:57 PM CDT [facility] GLUCOSE (U) NEGATIVE NEGATIVE 06/19/2025 3:57 PM CDT [facility] KETONES MG/DL (U) NEGATIVE NEGATIVE 06/19/2025 3:57 PM CDT [facility] BILIRUBIN (U) 1+(A) NEGATIVE 06/19/2025 3:57 PM CDT [facility] BLOOD (U) NEGATIVE NEGATIVE 06/19/2025 3:57 PM CDT [facility] UROBILINOGEN 0.2 0.0 - 2.0 EU/DL 06/19/2025 3:57 PM CDT [facility] NITRITES NEGATIVE NEGATIVE 06/19/2025 3:57 PM CDT [facility] LEUKOCYTES (U) NEGATIVE NEGATIVE 06/19/2025 3:57 PM CDT [facility] RBC/HPF 0-3 0 - 3 /HPF 06/19/2025 3:57 PM CDT [facility] WBC/HPF 0-3 0 - 3 /HPF 06/19/2025 3:57 PM CDT [facility] EPI/HPF 0-3 /HPF 06/19/2025 3:57 PM CDT [facility] BACTERIA (U) 1+(A) NONE SEEN 06/19/2025 3:57 PM CDT [facility] MUCUS FEW 06/19/2025 3:57 PM CDT [facility] COMMENT (U) Less than 12 ml urine submitted. 06/19/2025 3:57 PM CDT [facility] URIC ACID CRYSTALS PRESENT 06/19/2025 3:57 PM CDT [facility] AMORPHOUS SEDIMENT PRESENT 06/19/2025 3:57 PM CDT [facility] URINE SPECIMEN OBTAINED BY CLEAN CATCH PROCEDURE / Unknown 06/19/2025 7:35 AM CDT Alida Klein MD URINE ORDERABLES Final Result [facility] [address] [place] [address], * ALBUMIN/CREATININE RATIO, RANDOM URINE (06/19/2025 7:35 AM CDT) MICROALBUMIN (U) 13.4 <20 MG/L 06/19/20 3:29 PM CDT [facility] CREATININE RANDOM (U) 448.1 MG/DL 06/19/2025 4:07 PM CDT [facility] ALBUMIN/CREAT RATIO 3.0 <30 MG/G 06/19/2025 4:07 PM CDT [facility] URINE SPECIMEN / Unknown 06/19/2025 7:35 AM CDT Alida Klein MD URINE ORDERABLES Final Result [facility] [place] [address] [place] [address], * (ABNORMAL) COMPREHENSIVE METABOLIC PANEL (06/19/2025 7:35 AM CDT) SODIUM S/P/B 141 136 - 145 MMOL/L 06/19/2025 3:49 PM CDT [facility] POTASSIUM S/P/B 3.7 3.5 - 5.1 MMOL/L 06/19/2025 3:49 PM CDT [facility] CHLORIDE S/P/B 103 98 - 107 MMOL/L 06/19/2025 3:49 PM CDT [facility] CO2 27.3 21 - 32 MMOL/L 06/19/2025 3:49 PM CDT [facility] GLUCOSE 118(H) 70 - 99 MG/DL 06/19/2025 3:49 PM CDT [facility] BUN 14 7 - 18 MG/DL 06/19/2025 3:49 PM CDT [facility] CREATININE S/P/B 0.65 0.55 - 1.02 MG/DL 06/19/2025 3:49 PM T [facility] CALCIUM S/P/B 9.1 8.4 - 10.5 MG/DL 06/19/2025 3:49 PM CDT [facility] BILIRUBIN TOTAL S/P/B 0.4 0.2 - 1.0 MG/DL 06/19/2025 3:49 PM CDT [facility] ALKALINE PHOSPHATASE S/P/B 44 37 - 98 U/L 06/19/2025 3:49 PM CDT [facility] AST 13(L) 15 - 37 U/L 06/19/2025 3:49 PM CDT [facility] ALT 18 14 - 59 U/L 06/19/2025 3:49 PM T [facility] TOTAL PROTEIN S/P/B 7.2 6.4 - 8.2 G/DL 06/19/2025 3:49 PM T [facility] ALBUMIN S/P/B 4.0 3.4 - 5.0 G/DL 06/19/2025 3:49 PM T [facility] ANION GAP 10.7 5 - 15 MMOL/L 06/19/2025 3:49 PM T [facility] Comment:REFERENCE RANGE NOT ESTABLISHED OSMOLALITY (CALC) 294 MOSM/KG 025 3:49 PM T [facility] Comment:REFERENCE RANGE NOT ESTABLISHED GFR ESTIMATE >90 >90 ML/MIN/1. 73 M2 06/19/2025 3:49 PM T [facility] GFR NOTES GFR REFERENCE S: 06/19/2025 3:49 PM T [facility] Comment: THE ESTIMATED GFR IS CALCULATED [...] m2 G5,KIDNEY FAILURE: <15 ml/min/1.73 m2 06/19/2025 7:35 AM CDT us Alida Klein MD LABORATORY Final Result [facility] [place] [address] [place] [address], [place] [phone] * (ABNORMAL) LIPID PANEL (06/19/2025 7:35 AM CDT) CHOLESTEROL 178 <200 MG/DL 06/19/2025 3:49 PM CDT [facility] TRIGLYCERIDES 58 <150 MG/DL 06/19/2025 3:49 PM CDT [facility] HDL 49 >40 MG/DL 06/19/2025 3:49 PM CDT [facility] LDL-C 117(H) <100 MG/DL 06/19/2025 3:49 PM CDT [facility] VLDL CALCULATION 12 5 - 28 MG/DL 06/19/2025 3:49 PM CDT [facility] CHOL/HDL RATIO 3.6 0.0 - 4.0 06/19/2025 3:49 PM CDT [facility] LDL/HDL 2.4(H) 0.41 - 2.13 06/19/2025 3:49 PM CDT [facility] NON HDL CHOLESTEROL 129 <140 MG/DL 06/19/2025 3:49 PM CDT [facility] 06/19/2025 7:35 AM CDT us Alida Klein MD LABORATORY Final Result Performing Organization Address City/[facility]/ZIP Co de Phone Number [facility] [place] [address] [place] [address], [place] [phone] * (ABNORMAL) CBC W/DIFF AUTOMATED (06/19/2025 7:35 AM CDT) [facility] WBC 5.57 4.00 - 10.80 x10'3/uL 06/19/2025 3:31 PM CDT [facility] RBC 4.36 4.10 - 5.40 x10'6/uL 06/19/2025 3:31 PM CDT [facility] HGB 13.6 12.0 - 16.0 G/DL 06/19/2025 3:31 PM CDT [facility] HCT 39.7 36.0 - 47.0 % 06/19/2025 3:31 PM CDT [facility] MCV 91.1 78.0 - 100.0 FL 06/19/2025 3:31 PM CDT [facility] MCH 31.2(H) 27.0 - 31.0 PG 06/19/2025 3:31 PM CDT [facility] MCHC 34.3 33.0 - 36.0 G/DL 06/19/2025 3:31 PM CDT [facility] RDW 11.8 11.5 - 14.5 % 06/19/2025 3:31 PM CDT [facility] PLT 226 150 - 350 x10'3/uL 06/19/2025 3:31 PM T [facility] MPV 10.5(H) 7.4 - 10.4 FL 06/19/2025 3:31 PM T [facility] DIFFERENTIAL TYPE AUTOMATED DIFFERENTIAL 06/19/2025 3:31 PM T [facility] NEUTROPHILS % 57.5 % 06/19/2025 3:31 PM CDT [facility] LYMPHOCYTES % 32.1 % 06/19/2025 3:31 PM CDT [facility] MONOCYTES % 8.4 % 06/19/2025 3:31 PM CDT [facility] EOSINOPHILS % 1.3 % 06/19/2025 3:31 PM CDT [facility] BASOPHILS % 0.5 % 06/19/2025 3:31 PM CDT [facility] IMMATURE GRANS % 0.2 % 06/19/2025 3:31 PM CDT [facility] ABS. NEUTROPHILS 3.20 1.60 - 8.30 x10'3/uL 06/19/2025 3:31 PM CDT [facility] ABS. LYMPHOCYTES 1.79 0.80 - 4.70 x10'3/uL 06/19/2025 3:31 PM CDT [facility] ABS. MONOCYTES 0.47 0.00 - 1.50 x10'3/uL 06/19/2025 3:31 PM CDT [facility] ABS. EOSINOPHILS 0.07 0.00 - 0.40 x10'3/uL 06/19/2025 3:31 PM CDT [facility] ABS. BASOPHILS 0.03 0.00 - 0.20 x10'3/uL 06/19/2025 3:31 PM CDT [facility] ABS. IMMATURE GRANULOCYTES 0.01 0.00 - 0.03 x10'3/uL 06/19/2025 3:31 PM CDT [facility] 06/19/2025 7:35 AM CDT Alida Klein MD LABORATORY Final Result [facility] [address] [place] [address], * MAMMOGRAM GENERIC (SCAN ORDER) (05/01/2025) Anatomical Region Laterality Modality Other 05/01/2025 us [facility] Scanned SCANNING Final Resu lt * HEPATITIS C ANTIBODY (03/25/2024 8:46 AM CDT) HEPATITIS C AB NON-REACTI VE NON-REACT ANTOINETTE 03/25/2024 6:23 PM CDT [facility] Comment: ANTIBODIES TO HCV NOT DETECTED. DOES NOT EXCLUDE THE POSSIBILITY OF EXPOSURE TO HCV. 03/25/2024 8:46 AM CDT Alida Klein MD LABORATORY Final Result [facility] [address] [place] [address], [place] [phone] [id number] from Last 3 Months or Most Recently Relevant to Health Maintenance Insurance Care Teams Civil Preparedness Coordinator Relationship Specialty Start Date End Date Alida Klein MD [address] [facility] [address] [place] [id number] PCP - General INTERNAL MEDICINE 03/23/24
--- OUTSIDE RECORDS SUMMARY | 2025-09-14 13:42 | XMS_ITS | Continuity of Care Document ---
Author Organization [facility] Address [address] [place] [address] Care Team Providers Care Recruiting Associate Name Role Phone MONICA PERALTA Primary Care Provider Assessment No assessment recorded. Plan of Treatment Reminders Order Date Submit Date Provider Last Modified By Organization Details Last Modified Time Details Appointments None recorded. Lab None recorded. Referral None recorded. Procedures None recorded. Surgeries None recorded. Imaging US, transvagina l 2024 025 [email or web address] [place], [address], [address], [place], [address], 17:51:03 Medication Orders None recorded. Patient TargetsNo targets recorded. Patient InstructionsNo instructions recorded. Reason for Referral None Reported. Results Created Date Observation Date Name Description Value Unit Range Abnormal Flag Note LastModifiedBy Organization Detail LastModifiedTime 06/22/2006/22/2025 US, pelvi s No observ ation record ed. [email or web address] [place] [address], [place], [address], 06/22/2025 21:12:46 06/22/2006/22/2025 , trans vagin al No observ ation record ed. [facility] [address], [place], [address], 06/22/2025 15:27:27 Result Notes None recorded. Procedures Surgical History Date Name Laterality Status Provider Name and Address Organization Details Recorded Time 01/08/20 24 TOTAL HYSTERECTOMY, LAPAROSCOPIC, WITH BILATERAL SALPINGECTOMY (SURG) completed Rachel Agarwal [facility] 01/13/2024 14:32:15 05/28/20 23 Date of Last Pap Smear completed [facility] 06/15/2023 09:31:12 09/21/19 19 Colposcopy completed [facility] 06/15/2023 09:32:45 09/21/19 19 Colposcopy completed [facility] 06/15/2023 09:35:24 09/21/19 17 procedure on heart completed [facility] 05/28/2023 10:22:29 09/21/19 10 cholecystectomy completed [facility] 06/15/2023 09:35:53 09/21/18 90 tonsilectomy/adeno ids completed [facility] 06/15/2023 09:35:35 09/21/18 86 procedure on heart valve completed [facility] 05/28/2023 10:22:18 Imaging Results None recorded. Procedure Notes None recorded. Medical Equipment None Reported. Allergies Allergen ID Allergen Name Allergen Category Reaction Reaction Severity Criticality Documentation Date Start Date Code Code System Note Provider Name and Address Organization Details Recorded Time ethinyl estradiol / levonorge strel medicatio n cough mild Not available 05/28/2023 14783 8 RxNorm Shweta [facility] 3 10:00:37 05366 citrus bioflavon oids food,medi cation Not available Not available low 08/07/20252024 17742 2 RxNorm unrec ogniz ed react ion (text : Nause a and Vomit ing, code: 09626 [id number]) (from exter nal sourc e) Not Available claire - External Data Service - prod 08:56:05 89171 butylscop olamine bromide Not available Not available Not available Not available 08/07/20252024 1851 RxNorm unrec ogniz ed react ion (text : Blurr ed visio n, code: 61903 [id number]) (from [facility] e) Not Available claire - External Data [...] Available Not Available sertraline 50 mg tablet Take 1 tablet by mouth once daily 2024 active Not Available Not Available Not Avai lable loratadine 10 mg tablet TAKE 1 TABLET [...] completed Not Available Not Available Not Available [employer] COVID-19 Ag Self Test kit TEST DIRECTED [...] Updated DateTime 06/22/2025 167.64 cm 28.6 kg/m2 18743.85 g 122/77 mm[Hg] Carmela Cho [facility] 06/22/2025 12:49:50 Social History Question Answer Notes LastModified by Organizat ion Details LastModified Time Tobacco Smoking Status Never Smoker Kera matthews, [facility] 06/15/2023 09:35:14 Do You [...] Or The Highest Degree You Have Received? [id number] Information not available 05/28/2023 Are There Any Guns Present In Your Home? No Information not available 05/28/2023 Have You Ever Been Counseled For Unhealthy Alcohol Use? No [email or web address] Information not available 06/15/2023 Do You Use [...] Have Difficulty Walking Or Climbing Stairs? No [email or web address] Information not available 06/15/2023 Sex: Unknown Functional Status Question Answer Note LastModified by Organizat ion Details LastModified Time Do you use any illicit or recreational drugs? Yes Information not available 05/28/2023 Do you or have you ever used any other forms of tobacco or nicotine? No [email or web address] Information not available 06/15/2023 What is your level of alcohol consumption? Occasional Information not available 05/28/2023 Are you able to walk independently without assistance or assistive devices? [email or web address] Information not available 05/28/2023 Are you able to care for yourself independently? 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 No Information not available 06/15/2023 What is your exercise level? Occasional Information not available 05/28/2023 Mental Status Question Answer Note LastModified by Organization D etails LastModified Time Do you feel stressed (tense, restless, nervous, or anxious, or unable to sleep at night)? [id number] [email or web address] Information not available 03/27/2025 Family History Relationship [...] ICD10 Code Diagnosis IMO Codes Diagnosis Note [id number] Jake Humphreys MD [place] [address] [address] 06/22/2025 12:11:56 06/22/2025 13:15:34 Cyst of ovary [id number] N83.209 [id number] This patient is a 40-year-ol d female [...] care in total. We agreed to observe. [id number] Jake Humphreys MD [place] [address] [address] 06/22/2025 13:30:49 06/22/2025 13:47:30 Pain in pelvis [id number] R10.20 [id number] Health Concerns Section Related Observation LastModified by Organization Detai ls LastModified Time None Recorded Concern Status LastModified by Organization Details LastModified Time None Recorded Payers Encounter Date Sequence Insurance Name Policy Number Policy Barton Covered Member ID Barton Member ID Guarantor Name 06/22/2025 1 [facility] [id number] Destini Skinner [id number] Destini Skinner Notes Date Note Type Note [...] observe. Jake Humphreys MD [address], [place], [address], [facility] 06/22/2025 18:13:20 OBGyn Episode No OBEpisode recorded.
--- OUTSIDE RECORDS SUMMARY | 2025-09-14 13:42 | XMS_ITS | Encounter Summary ---
Author Organization [facility] Address [facility] [place] [address] Care Team Providers Care Instrument Repair Technician Name Role Phone Alida Klein MD Primary Care Provider [phone] Encounter Details Date Type Department Care Team (Latest Contact Info) Description 07/19/2025 Results Follow-Up [facility] Multispecialty Care - [place] [address] [place] [address] Rosalba Morales, QUANTITY SURVEYOR [address] [place], [place] [id number] THYROXINE, FREE (FT4), TSH W/REFLEX, FREE T3 [...] from your doctor or pharmacy? Never 06/19/2025 [facility] Utilities Answer Date Recorded In the past [...] week 06/19/2025 How often do you attend [facility] or synagogue services? Patient unable to answer 06/19/2025 Do you belong to any clubs o r organizations such as oriental orthodox groups, unions, fraternal or athletic groups, or [...] Recorded Patient Health Questionnaire-2 Score 2 06/19/2025 [facility] [place] of Occupat ional Health - Occupational Stress [...] any time in the past 12 m [facility], were you homeless or living in a longterm (including now)? No 06/19/2025 Comments No Sex and Gender Information Value Date Recorded Sex Assigned at Female 03/25/2024 3:16 PM CDT Legal Sex Female 7:40 PM FAMILY LIFE EDUCATOR Gender Identity Female 03/25/2024 3:16 PM CDT Sexual Orientation Straight 03/25/2024 3: 16 PM CDT documented as of this encounter Plan of Treatment Upcoming Encounters Date Type Department Care Team (Late st Contact Info) Description 09/25/2025 8:00 AM FAMILY LIFE EDUCATOR Office Visit [facility] Multispecialty Care [place] [address] [address] [place], [place] [id number] [place] [address] [place] [id number] documented as of this encounter Visit Diagnoses Not on filedocumented in this encounter Additional Health Concerns Assessment Noted Time PHQ-9 Depression Total Score: 9 06/19/20 25 7:52 AM CDT documented as of this encounter Care Teams Instrument Repair Technician Relationship Specialty Start Date End Date Alida Klein MD [address] [id number] PCP - General INTERNAL MEDICINE 03/23/24 documented as of this encounter
--- OUTSIDE RECORDS SUMMARY | 2025-09-14 13:43 | XMS_ITS | Encounter Summary ---
Author Organization [facility] Address [facility] [place] [address] Care Team Providers Care Credit Risk Specialist Name Role Phone Alida Klein MD Primary Care Provider [phone] Encounter Details Date Type Department Care Team (Late st Contact Info) Description 05/04/2024 MyChart Message Enc [facility] Medical [facility] Multispecialty Care [facility] [address] [place] [address] [address] [place] [address] Alida Klein MD [address] [place] [address] [address] [place] [address] Ramón Social History Tobacco Use Types Packs/Day [...] PM CDT Legal Sex Female 7:40 PM LEHR TENDER Gender Identity Female 03/25/2024 3:16 PM CDT Sexual Orientation Straight 03/25/2024 3: 16 PM CDT documented as of this encounter Plan of Treatment Upcoming Encounters Date Type Department Care Team (Late st Contact Info) Description 09/25/2025 8:00 AM LEHR TENDER Office Visit [facility] Multispecialty Care [place] [address] [address] [place] [address] Alida Klein MD [address] [address] documented as of this encounter Visit Diagnoses Not on filedocumented in this encounter Additional Health Concerns Infection Onset Date Last Indicated Resolved Time COVID-19 Rule Out 09/30/2024 09/30/2024 09/30/2024 3:56 PM LEHR TENDER documented as of this encounter Care Teams Credit Risk Specialist Relationship Specialty Start Date End Date Alida Klein MD [address] [place] [id number] PCP - General INTERNAL MEDICINE 03/23/24 documented as of this encounter
--- OUTSIDE RECORDS SUMMARY | 2025-09-14 13:43 | XMS_ITS | Encounter Summary ---
Author Organization [facility] Address [facility] [place] [address] Care Team Providers Care Machine Zipper Trimmer Name Role Phone Alida Klein MD Primary Care Provider [phone] Encounter Details Date Type Department Care Team (Late st Contact Info) Description 05/21/2024 MyChart Message Enc [facility] Medical [facility] Multispecialty Care [place] [address] [place] [address] [address] [place], [place] [id number] Alida Klein MD [address] [place] [address] [address] [place] [address] STD test result Social History Tobacco Use [...] PM CDT Legal Sex Female 7:40 PM EXTRACTOR OPERATOR SOLVENT PROCESS Gender Identity Female 03/25/2024 3:16 PM CDT Sexual Orientation Straight 03/25/2024 3: 16 PM CDT documented as of this encounter Plan of Treatment Upcoming Encounters Date Type Department Care Team (Late st Contact Info) Description 09/25/2025 8:00 AM EXTRACTOR OPERATOR SOLVENT PROCESS Office Visit [facility] Medical [facility] Multispecialty Care - [place] [address] [address] [place] [address] Alida Klein MD [address] [place] [id number] documented as of this encounter Visit Diagnoses Not on filedocumented in this encounter Additional Health Concerns Infection Onset Date Last Indicated Resolved Time COVID-19 Rule Out 09/30/2024 09/30/2024 09/30/2024 3:56 PM EXTRACTOR OPERATOR SOLVENT PROCESS documented as of this encounter Care Teams Machine Zipper Trimmer Relationship Specialty Start Date End Date Alida Klein MD [address] [place] [address] PCP - General INTERNAL MEDICINE 03/23/24 documented as of this encounter
--- OUTSIDE RECORDS SUMMARY | 2025-09-14 13:43 | XMS_ITS | Data Portability ---
Author Organization [facility] [place] Address [address] [place] [address] Care Team Providers Care Sales Consultant Insurance Name Role Phone KATHRYNMONICA Primary Care Provider Assessment Encounter Date Assessment Date Assessment LastModified by Organization Details LastModified Time 03/27/2025 03/27/2025 Annual gynecological exam performed. Patient will come back in a year unless there are new symptoms. [email or web address] Not available 03/27/2025 10:03:43 Plan of Treatment Reminders Order Date Submit Date Provider Last Modified By Organization Details Last Modified Time Details Appointments None recorded. Lab pap, IG + HR HPV - HPV regardless but if HPV is positive need subtyping 16,18/[address]/GC/Trich 2024 025 [facility] (Lab), [address], [place], [address], 5 09:56:45 25-hydroxyv itamin D2 + 25-hydroxyv itamin D3, QN, serum or plasma 2024 025 [facility] (Lab), [address], [place], [address], 5 09:56:44 HBsAg (hepatitis B surface Ag), serum 2024 025 [facility] (Lab), [address], [place], [address], 5 09:56:44 urinalysis, dipstick 2024 025 [email or web address] [facility], [address], [place], [address], 15:51:35 CT + NG + TV, RNA, unspecified specimen 2024 [facility] (Lab), [address], [place], [address], 16:55:56 Referral None recorded. Procedures None recorded. Surgeries None recorded. Imaging US, transvagina l 2024 [email or web address] [place], [address], [place], [address], 17:51:03 Medication Orders estradiol 0.01% (0.1 mg/gram) vaginal cream 2024 [facility], [address] [place] [address], [address], 10:37:57 Macrobid 100 mg capsule 2024 [facility], [address] [place] [address], [address], 15:53:04 Diflucan 150 mg tablet 2024 [facility], [address] [place] [address], [address], 5 15:53:03 Patient TargetsNo targets recorded. Patient InstructionsNo instructions recorded. Reason for Referral None Reported. Results Created Date Observation Date Name Description Value Unit Range Abnormal Flag Note LastModifiedBy Organization Detail LastModifiedTime 02/23/20 25 02/22/2025 CT/GC AND TRICH OMONA S VAGIN JOLEEN (RRNA ), URINE chlamydia trachomatis, PCR Negati ve negati ve Not Available [facility] (Lab) [address], [place], [address], 02/23/2025 16:55:56 02/23/20 25 02/22/2025 CT/GC AND TRICH OMONA S VAGIN JOLEEN (RRNA ), URINE neisseria gonorrhoeae, PCR Negati ve negati ve Not Available [facility] (Lab) [address], [place], [address], 02/23/2025 16:55:56 02/23/20 25 02/22/2025 CT/GC AND TRICH OMONA S VAGIN JOLEEN (RRNA ), URINE trichomonas vaginalis ribosomal RNA (rrna) Negati ve negati ve Not Available [facility] (Lab) [address], [place], [address], 02/23/2025 16:55:56 02/23/20 25 02/22/2025 urina lysis , dipst ick Leukocytes - Not Available [facility] alyse [address], [place], [address], 02/22/2025 15:49:42 02/23/20 25 02/22/2025 urina lysis , dipst ick Nitrite - Not Available [facility] [address], [place], [address], 02/22/2025 15:49:42 02/23/20 25 02/22/2025 urina lysis , dipst ick Urobilinogen - Not Available [facility] leisa [address], [place], [address], 02/22/2025 15:49:42 02/23/20 25 02/22/2025 urina lysis , dipst ick Protein trace Not Available [facility] [address], [place], [address], 02/22/2025 15:49:42 02/23/20 25 02/22/2025 urina lysis , dipst ick pH 5 Not Available [facility] [address], [place], [address], 02/22/2025 15:49:42 02/23/20 25 02/22/2025 urina lysis , dipst ick Specific [place] 1.000 Not Available [facility] cate [address], [place], [address], 02/22/2025 15:49:42 02/23/20 25 02/22/2025 urina lysis , dipst ick Ketone - Not Available [facility] [address], [place], [address], 02/22/2025 15:49:42 02/23/20 25 02/22/2025 urina lysis , dipst ick Bilirubin - Not Available [facility] viola [address], [place], [address], 02/22/2025 15:49:42 02/23/20 25 02/22/2025 urina lysis , dipst ick Glucose - Not Available [facility] [address], [place], [address], 02/22/2025 15:49:42 02/23/20 25 02/22/2025 urina lysis , dipst ick Appearance clear Not Available [facility] [address], [place], [address], 02/22/2025 15:49:42 02/23/20 25 02/22/2025 urina lysis , dipst ick Color light yellow Not Available [facility] [address], [place], [address], 02/22/2025 15:49:42 03/27/20 25 03/27/2025 HBSAG /HCV/ HIV/R [place] HIV antigen/anti body Nonrea ctive nonrea ctive HIV-1 antig en and HIV-1 /HIV- 2 antib odies were not detec laine. No labor atory evide nce of HIV infec tion. Not Available [facility] (Lab) [address], [place], [address], 03/29/2025 09:56:44 03/27/2003/27/2025 HBSAG /HCV/ HIV/R [place] hepatitis B surface antigen Non-re active non-re active This assay was perfo rmed using [employer] ratio n reage nts and test kits. Value s obtai juana with other assay metho ds or kits canno t be used inter torres eably . Not Available [facility] (Lab) [address], [place], [address], 03/29/2025 09:56:44 03/27/2003/27/2025 HBSAG /HCV/ HIV/R [place] hepatitis C antibody Non-re active non-re active Antib odies to HCV Not Detec laine, does not exclu de the possi bilit y of expos ure to HCV. Not Available [facility] (Lab) [address], [place], [address], 03/29/2025 09:56:44 03/27/20 25 03/27/2025 HBSAG /HCV/ HIV/R [place] RPR qualitative Nonrea ctive nonrea ctive Not Available [facility] (Lab) [address] [place], [address], 03/29/2025 09:56:44 03/27/20 25 03/27/2025 VITAM IN D, 25-OH (TOTA L D2/D3 ) vitamin D, 25-hydroxy, total 34.9 NG/mL 30.0-1 00.0 : Routi ne : VAGIN AL Sugge stive of Defic iency : <20 ng/mL Sugge stive of Insuf ficie ncy: 20-29 ng/mL Sugge stive of Suffi cienc y: 30-10 0 ng/mL Sugge stive of Toxic ity: >150 ng/mL Not Available 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 Shift in bob sugge stive of [...] as clini max randle nted. Not Available [facility] (Lab) [address], [place], [address], 03/29/2025 09:56:45 03/27/20 25 03/27/2025 CT/GC AND TRICH OMONA S VAGIN JOLEEN (RRNA ), THINP REP VIAL CT/GC and trichomonas vaginalis (rrna), thinprep SEE RESULT S BELOW negati ve CHLAM YDIA TRACH OMATI S, PCR: Negat amilcar NEISS ERIA GONOR RHOEA E, PCR: Negat amilcar TRICH OMONA S VAGIN JOLEEN RIBOS OMAL RNA (RRNA ): Negat amilcar Not Available [facility] (Lab) [address], [place], [address], 03/29/2025 09:56:45 05/01/20 25 05/01/2025 US, santiago mendoza, bilat eral No observ ation record ed. [email or web address] [facility] [address], [place], [address], 05/02/2025 07:55:17 05/01/20 25 05/01/2025 US, santiago mendoza bilat eral No observ ation record ed. Imaging [address], [place], [address], 05/03/2025 10:27:29 06/22/20 25 06/22/2025 US, pelvi s No observ ation record ed. [email or web address] [address], [place], [address], 06/22/2025 21:12:46 06/22/20 25 06/22/2025 US, trans vagin al No observ ation record ed. [facility] [address], [place], [address], 06/22/2025 15:27:27 Result Notes None recorded. Procedures Surgical History Date Name Laterality Status Provider Name and Address Organization Details Recorded Time 01/08/20 24 TOTAL HYSTERECTOMY, LAPAROSCOPIC, WITH BILATERAL SALPINGECTOMY (SURG) completed Rachel Agarwal [facility] 01/13/2024 14:32:15 05/28/20 23 Date of Last Pap Smear completed Kera Booker [facility] 06/15/2023 09:31:12 09/21/19 19 Colposcopy completed Kera Booker [facility] 06/15/2023 09:32:45 09/21/19 19 Colposcopy completed Kera Booker [facility] 06/15/2023 09:35:24 09/21/19 17 procedure on heart completed Shweta [facility] 05/28/2023 10:22:29 09/21/19 10 cholecystectomy completed [facility] 06/15/2023 09:35:53 09/21/18 90 tonsilectomy/adeno ids completed [facility] 06/15/2023 09:35:35 09/21/18 86 procedure on heart valve completed [facility] 05/28/2023 10:22:18 Imaging Results None recorded. Procedure Notes None recorded. Medical Equipment None Reported. Allergies Allergen ID Allergen Name Allergen Category Reaction Reaction Severity Criticality Documentation Date Start Date Code Code System Note Provider Name and Address Organization Details Recorded Time ethinyl estradiol / levonorge strel medicatio n cough mild Not available 05/28/2023 81377 8 RxNorm Shweta Kolb [facility] 3 10:00:37 63506 citrus bioflavon oids food,medi cation Not available Not available low 08/07/20252024 92601 2 RxNorm unrec ogniz ed react ion (text : Nause a and Vomit ing, code: [id number]) (from exter nal sourc e) Not Available claire - External Data Service - prod 5 08:56:05 43064 butylscop olamine bromide Not available Not available Not available Not available 08/07/20252024 1851 RxNorm unrec ogniz ed react ion (text : Blurr ed visio n, code: 00612 6008) (from exter nal sourc e) Not Available claire - External Data Service - prod 5 08:56:05 Medications Name Sig Start Date Stop Date Status Note LastModified by Organization Details LastModified Time binaxnow cov kit home sade 06/15 completed Not Available Not Available Not Available flowflex kit test 06/15 completed Not Available Not Available Not Available [facility] 2-pk kit covid-19 06/15 completed [...] Not Available No t Available amoxicillin 875 mg-abisai russell clavulanate 125 mg tablet TAKE 1 TABLET [...] Updated DateTime 01/06/2025 167.64 cm 31.2 kg/m2 90606.33 g 123/75 mm[Hg] SHAYAN Solitario [facility] 01/06/2025 12:45:50 Date Recorded Body height Body mass index (BMI) Body weight Systolic And Diastolic Provider Name and Address Organization Details Last Updated DateTime 02/22/2025 167.64 cm 30.3 kg/m2 82630.37 g 110/71 mm[Hg] [facility] 02/22/2025 15:46:23 Date Recorded Body height Body mass index (BMI) Body weight Systolic And Diastolic Provider Name and Address Organization Details Last Updated DateTime 03/27/2025 167.64 cm 30 kg/m2 76277.18 g 110/72 mm[Hg] [facility] 03/27/2025 10:10:26 Date Recorded Body height Body mass index (BMI) Body weight Systolic And Diastolic Provider Name and Address Organization Details Last Updated DateTime 06/22/2025 167.64 cm 28.6 kg/m2 63569.85 g 122/77 mm[Hg] Carmela Marquis [facility] 06/22/2025 12:49:50 Social History Question Answer Notes LastModified by Organizat ion Details LastModified Time Tobacco Smoking Status Never Smoker Kera matthews, [facility] 06/15/2023 09:35:14 Do You Have [...] Or The Highest Degree You Have Received? [id number] Information not available 05/28/2023 Are There Any Guns Present In Your Home? No Information not available 05/28/2023 Have You Ever Been Counseled For Unhealthy Alcohol Use? No [email or web address] Information not available 06/15/2023 Do You Use [...] Has Tobacco Cessation Counseling Been Provided? No [email or web address] Information not available 06/15/2023 Have You Used IV Drugs? No Information not available 05/28/2023 Do You Have Difficulty Walking Or Climbing Stairs? No [email or web address] Information not available 06/15/2023 Sex: Unknown Functional Status Question Answer Note LastModified by Organizat ion Details LastModified Time Do you use any illicit or recreational drugs? Yes Information not available 05/28/2023 Do you or have you ever used any other forms of tobacco or nicotine? No [email or web address] Information not available 06/15/2023 What is your level of alcohol consumption? Occasional Information not available 05/28/2023 Are you able to walk independently without assistance or assistive devices? [email or web address] Information not available 05/28/2023 Are you able to care for yourself independently? Yes [email or web address] Information not available 06/15/2023 What is your occupation? [employer] Information not available 07/18/2024 Do you have difficulty dressing, bathing, grooming, or toileting? No [email or web address] Information not available 06/15/2023 What is your exercise level? Occasional Information not available 05/28/2023 Mental Status Question Answer Note LastModified by Organization D etails LastModified Time Do you feel stressed (tense, restless, nervous, or anxious, or unable to sleep at night)? [id number] [email or web address] Information not available 03/27/2025 Family History Relationship [...] ICD10 Code Diagnosis IMO Codes Diagnosis Note [id number] Jake Humphreys MD [facility] [address],[place] [address] 05/28/2023 09:54:29 05/28/2023 11:10:40 Dyspareunia 00572535 N94.10 30-year-ol d with severe dyspareuni a. [...] favoring a hysterecto my. Pain in pelvis 58335951 R10.2 Vaginal dryness 02003315 N89.8 [id number] Jake Humphreys MD [facility] [address],[facility] [address] 06/11/2023 09:14:33 06/11/2023 09:51:48 Dyspareunia 87153683 N94.10 30-year-ol d with severe dyspareuni a. [...] options, patient is favoring a hysterecto my. 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 Pain in pelvis 19526765 R10.2 Dysmenorrhea 434038910 N 94.6 [id number] Jake Humphreys MD [facility] [address] [address] 11/20/2023 09:07:47 11/20/2023 10:21:52 Dysmenorrhea 744452191 N94.6 Dyspareunia 91885440 N94 .10 Lesion of endometrium 92 10832755 9101 N85.9 Menorrhagia 936771448 N9 2.0 This patient is a 38-year-ol [...] 50% of our Meeting was counseling . [id number] Jake Humphreys MD [facility] [address],[facility] [place] [address] 12/28/2023 16:49:29 12/29/2023 00:16:02 Menorrhagia 360538959 N92.0 this patient is a 30-year-ol d female with severe menorrhagi a. We have agreed to perform total laparoscop ic hysterecto my, bilateral salpingect subha, and right oophorecto my. She understand s risks, benefits, and alternativ es. She is completed the informed consent process and is ready to proceed. [id number] Jake Humphreys MD [facility] [address],[facility] [address] 01/14/2024 09:42:58 01/14/2024 10:30:23 Postoperative care 606585842 Z48.89 female Patient presents for postop follow-up. She is 1 week postop from a total laparoscop ic hysterecto my bilateral salpingect subha. She has no complaints . Her incisions are clean dry and intact. She is recovering normally. She will follow-up as needed. [id number] Jake Humphreys MD [facility] [address],[facility] [place] [address] 01/26/2024 12:35:54 01/27/2024 11:06:36 Urinary tract infectious disease 00911540 N39.0 [id number] Jake Humphreys MD [facility] [address] [address] 03/08/2024 09:40:27 03/08/2024 10:31:55 Postoperative pain 534901096 G89.18 38-year-ol d who is 8 weeks [...] She was examined. [id number] Jake Humphreys MD [facility] [address] [address] 04/07/2024 11:20:44 04/07/2024 12:51:08 Dysuria 15264651 R30.0 Chronic in terstitial cystitis 029855158 N30.10 Dyspareunia 76466152 N94 .10 this patient is a 39 old female presents for persistent postoperat amilcar dyspareuni a, urinary urgency, pain with a full bladder. She is symptoms of interstiti al cystitis. I intend to send her to Dr. Denton of [facility] for evaluation and treatment. We will obtain pelvic ultrasound . We need to examine her existing ovary and pelvis. Her pain has improved with intercours e. It occurs after intercours e and persists for several hours. She is tender anterior vagina /bladder area. This was identified on a previous exam. I spent more than 20 minutes on her care. [id number] MD Stu Persaud [address] [address] 04/21/2024 09:25:12 04/21/2024 10:02:12 Pain in pelvis 91557762 R10.2 [id number] Jake Humphreys MD [facility] [address] [address] 04/21/2024 09:25:35 04/21/2024 11:42:57 Dyspareunia 65701119 N94.10 this patient is a 39-year-ol d [...] Dr. Miller consult. [id number] NEEL CACERES MD [facility] [address] [address] 06/06/2024 11:32:49 06/06/2024 12:46:43 Postcoital bleeding 19218901 N93.0 - patient reports one episode of postcoital bleeding 2 weeks ago as well as 1 clot when house cleaning yesterday- no pain- exam significan t for small area of granulatio n tissue at vaginal cuff, cuff otherwise intact and normal- silver nitrate applied without issue Venereal d isease screening 366622691 Z11.3 - will send urine CT/GC/Tric h- blood testing ordered [id number] Jake Humphreys MD [facility] [address] [address] 07/18/2024 16:45:59 07/18/2024 17:36:52 Postcoital bleeding 07865788 N93.0 this patient is a 39-year-ol d [...] will contact us if there are problems. [id number] NEEL CACERES MD [facility] [address],[place] [address] 10/07/2024 14:23:12 10/10/2024 10:33:28 Mass of left breast 7058599235 7706726 N63.20 - new left breast mass since Thursday- not painful- no nipple discharge- no family hx of breast cancer- exam demonstrat es possible 2cm mass vs fibrocysti c tissue- diagnostic mammogram ordered Vaginitis 77123639 N76.0 - thick white discharge and external irritation - swab sent- rx for diflucan sent [id number] Jake Humphreys MD [facility] [address],[place] [address] 01/06/2025 12:30:39 01/09/2025 18:28:26 [id number] Jake Humphreys MD [facility] [address],[place] [address] 02/22/2025 15:37:28 02/22/2025 16:03:34 Urinary system finding 098065839 R39.9 [id number] Patient presents with symptoms of UTI. Results [...] finishing antibiotic s. Venereal d isease screening 080763631 Z11.3 [id number] Pt requested urine STI testing.Di scussed the various types of STDs, related symptoms and the potential consequenc es (including effects on fertility) of STD infections . Reviewed ways to limit exposure and prevention techniques . [id number] Jake Humphreys MD [facility] [address],[place] [address] 03/27/2025 09:58:53 03/27/2025 10:48:12 Well woman health examination 554907552 Z01.419 [id number] Annual gynecologi migdalia exam performed. Patient will [...] PCP STI testing - requested Vaginal dryness 96028458 N89.8 833515 Today we discussed Vag-E therapy along with VCG care changes to make (sheets h/o's given): Shareholder on Vaginal estrogen Therapy: Vaginal estrogen Vaginal [...] plan of care. Venereal d isease screening 960080966 Z11.3 [id number] Pt requested urine STI testing.Di scussed the various types of STDs, related symptoms and the potential consequenc es (including effects on fertility) of STD infections . Reviewed ways to limit exposure and prevention techniques . Vitamin D deficiency 347 43503 E55.9 65437 Hx of Vitamin D deficiency Will check levels today [id number] Jake Humphreys MD [facility] [address] [address] 06/22/2025 12:11:56 06/22/2025 13:15:34 Cyst of ovary 43404736 N83.209 [id number] This patient is a 40-year-ol d female [...] care in total. We agreed to observe. [id number] Jake Humphreys MD [facility] [address] [address] 06/22/2025 13:30:49 06/22/2025 13:47:30 Pain in pelvis 51052717 R10.20 [id number] Health Concerns Section Related Observation LastModified by Organization Detai ls LastModified Time None Recorded Concern Status LastModified by Organization Details LastModified Time None Recorded Advance Directives Directive N: Payers Insurance Date Sequence Insurance Name Policy Number Policy Barton Covered Member ID Barton Member ID Guarantor Name 06/22/2025 2 [place] [employer] Destini Skinner [id number] Destini Skinner 06/22/2025 2 [place] [facility] PRIOR TO 04/21/2025 (MEDICAID REPLACEMENT - HMO) Destini Skinner [id number] Destini Skinner 08/10/2025 1 [facility] [id number] Destini Skinner [id number] Destini Skinner 07/18/2024 PAYMENT PLAN Destini Skinner 07/05/2024 PAYMENT PLAN Destini Skinner 06/22/2025 1 [facility] [id number] Destini Skinner Destini Skinner 06/22/2025 2 [place] [facility] Destini Skinner [id number] Destini Skinner Notes Date Note Type Note Provider Name and Address Organization Details Recorded Time 5 text/html 39 y/o female presents with c/o burning during and after urination.Denies frequency, urgency, or pelvic pressure.Patient states that she recently had new sexual partner and requests STI testing.Neg pain of abd/pelvis/flankNeg GI sx'sNeg N/V/F/C/DNeg Vag d/c, odor, irritation, itching MELISA ROWLAND, KRYSTIAN [address], [place], [address], [facility] 02/22/2025 16:03:13 5 text/html Annual GYNReported [...] hysterectomy with RSO in 2023. Apoorva matthews, [facility] 03/27/2025 12:45:54 5 text/html This patient [...] observe. Jake Humphreys MD [address], [place], [address], [place] [facility] 06/22/2025 18:13:20 OBGyn Episode Ob Episode Information Episode Created Date Number of Fetuses Patient Bloodtype Patient rh Status Prepregnancy Weight lbs Domestic Partner Domestic Partner Phone Father Name Security Rep Status 06/15/20 23 1 CLOSED Fetus Data First Name Last Name Admitted to NICU Weight (g) Sex Living Outcome Pediatric Complications Fetus ID Race Codes Race Delivery Type 4167.14 9704 M Full Term 56807 Vaginal Delivery Gilberto Calculation Initial Gilberto Date [...] Domestic Partner Domestic Partner Phone Father Name Security Rep Status 06/15/20 23 1 CLOSED Fetus Data First Name Last Name Admitted to NICU Weight (g) Sex Living Outcome Pediatric Complications Fetus ID Race Codes Race Delivery Type 3713.55 7704 F Full Term 07186 Vaginal Delivery Gilberto Calculation Initial Gilberto Date Initial Exam Date Initial Exam Provider Initial Ultrasound Date Last Menstrual Period Date Ultra Sound Weeks Gestation 0 Eighteen To Twenty Week Gliberto Update Ultra Sound Date Fundal Height At [...]
--- OUTSIDE RECORDS SUMMARY | 2025-09-14 13:43 | XMS_ITS | Data Portability ---
Author Organization [facility] Address [address] [place] [address] Care Team Providers [employer] Name Role Phone MONICA PERALTA Primary Care Provider MAYA LEONARD Benefits Analyst [phone] Assessment Encounter Date Assessment Date Assessment LastModified by Organization Details LastModified Time 02/24/2023 02/24/2023 Lizy CARRILLO PA-S Not available 02/24/2023 09:01:52 Plan of Treatment Reminders Order Date Submit Date Provider Last Modified By Organization Details Last Modified Time Details Appointments None recorded. Lab vaginal pathogens panel, NELSY+probe, vaginal fluid 2022 023 [place] [facility], [address], [place], [address], 3 06:15:09 TSH, ultra-sens itive, serum 2022 023 [place] [facility], [address], [place], [address], 3 10:08:59 celiac disease comprehens amilcar panel, serum 2022 023 [place] [facility], [address], [place], [address], 3 10:08:59 food allergen panel, serum 2022 023 [place] [facility], [address], [place], [address], 3 10:09:00 H pylori urea breath test, co2 infrared 2022 023 [facility], [address], [place], [address], 3 07:14:05 vitamin D, 25-hydroxy , total, serum 2022 023 [facility], [address], [place], [address], 3 10:09:00 HbA1c (hemoglobi n A1c), blood 2022 023 [place] In-Office Order, Internal Use Only DO Not Attach Compendium DO Not Attach Compendium, Do Not Delete/merge, [id number] 09:41:51 CBC w/ auto diff 2022 023 [facility], [address], [place], [address], 3 17:10:12 lipid panel, serum 2022 023 [facility], [address], [place], [address], 3 17:10:10 CMP, serum or plasma 2022 023 [facility], [address], [place], [address], 3 17:10:11 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 Surgeries None recorded. Imaging None recorded. Medication Orders melatonin 5 mg tablet 2022 023 [id number], [address], [place], [place], [id number], 05/23/202 3 11:16:18 dicyclomin e 20 mg tablet 2022 023 [facility] #[id number], [address], [place], [place], [id number], 3 09:33:06 loperamide 2 mg tablet 2022 023 [facility] #47874, [address], [place], [place], [id number], 3 10:55:20 penicillin V potassium 500 mg tablet 2014 015 [facility], [address] [place] [address], [address], 3 14:36:13 Celexa 10 mg tablet 2014 015 [facility], [address] [place] [address], [address], 3 14:35:59 Patient TargetsNo targets recorded. Patient Instructions Encounter Date Encounter Id Patient Instructions Last Modified By Organization Details Last Modified Time 09/27/2014 [id number] plantar fasciitis: care instructions Not available 09/28/2014 15:35:40 plantar fasciitis: exercises Not available 09/28/2014 15:35:40 When You Want to Lose Weight: Care Instructions Not available 09/28/2014 15:35:40 learning about mood disorders Not available 09/28/2014 15:35:40 07/19/2015 [id number] I discussed with patient that this shall be her dentis' christin , but her dentis' won't do it untill a appointment on 07/30/2015, she is advisied to follow up with her dentist office as soon as she can. [email or web address] Not available 07/19/2015 10:31:55 01/01/2023 [id number] painful sex: car e instructions Not available 01/01/2023 09:28:24 A healthy lifestyle: care instructions Not available 01/01/2023 09:01:56 irritable bowel syndrome: care instructions Not available 01/01/2023 09:27:55 learning about the low fodmap diet for irritable bowel syndrome (IBS) Not available 01/01/2023 09:27:55 high-fiber diet: care instructions Not available 01/01/2023 09:27:55 diet for irritable bowel syndrome: care instructions Not available 01/01/2023 09:27:55 02/10/2023 [id number] A healthy lifestyle: care instructions Not available 02/10/2023 11:09:15 02/24/2023 [id number] A healthy lifestyle: care instructions Not available 02/24/2023 08:41:34 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 Plan tar fasciitis Referring Physician: Rodrigo Rizvi, Internal Medicine, Encounter Date: 09/27/2014 Results Created Date Observation Date Name Description Value Unit Range Abnormal Flag Note LastModifiedBy Organization Detail LastModifiedTime 01/02/2001/02/2023 LIPID PANEL cholesterol, total 183.9 mg/dL 140.0- 200.0 Not Available [facility] Department [address] [place], [address], 01/02/2023 17:10:10 01/02/20 23 01/02/2023 LIPID PANEL triglyceride s 133 mg/dL <=150 Not Available [facility] Department [address] [place], [address], 01/02/2023 17:10:10 01/02/20 23 01/02/2023 LIPID PANEL HDL cholesterol 50.1 mg/dL 40.0-1 00.0 Not Available [facility] Department [address] [place], [address], 01/02/2023 17:10:10 01/02/20 23 01/02/2023 LIPID PANEL VLDL cholesterol migdalia 26.60 mg/dL 5.00-4 0.00 Not Available [facility] Department [address] [place], [address], 01/02/2023 17:10:10 01/02/20 23 01/02/2023 LIPID PANEL LDL chol calc ([facility]) 110.2 Not Available [facility] Department [address] [place], [address], 01/02/2023 17:10:10 01/02/20 23 01/02/2023 COMP. METAB OLIC PANEL (14) glucose 124 mg/dL 65-99 above high normal ANION GP 26.0 mmol/ L N OSMOL 278.0 mOsM/ L N REFER ENCE RANGE : 275.0 -301. 0 Not Available [facility] Department [address] [place], [address], 01/02/2023 17:10:11 01/02/20 23 01/02/2023 COMP. METAB OLIC PANEL (14) BUN 16 mg/dL 8-26 Not Available [facility] Department [address] [place], [address], 01/02/2023 17:10:11 01/02/20 23 01/02/2023 COMP. METAB OLIC PANEL (14) creatinine 0.52 mg/dL 0.50-1 .40 Not Available [facility] Department [address] [place], [address], 01/02/2023 17:10:11 01/02/20 23 01/02/2023 COMP. METAB OLIC PANEL (14) eGFR 123 mL/mi n/1.7 3 >=60 Not Available [facility] Department [address] [place], [address], 01/02/2023 17:10:11 01/02/20 23 01/02/2023 COMP. METAB OLIC PANEL (14) BUN/creatini ne ratio 31.0 Not Available [facility] Department [address] [place], [address], 01/02/2023 17:10:11 01/02/20 23 01/02/2023 COMP. METAB OLIC PANEL (14) sodium 138.0 mmol/ L 136.0- 144.0 Not Available [facility] Department [address] [place] [address], [address], 01/02/2023 17:10:11 01/02/20 23 01/02/2023 COMP. METAB OLIC PANEL (14) potassium 4.6 mmol/ L 3.5-5. 3 Not Available [facility] Department [address] [place] [address], [address], 01/02/2023 17:10:11 01/02/20 23 01/02/2023 COMP. METAB OLIC PANEL (14) chloride 102 mmol/ l 101-11 1 Not Available [facility] Department [address] [place] [address], [address], 01/02/2023 17:10:11 01/02/20 23 01/02/2023 COMP. METAB OLIC PANEL (14) carbon dioxide, total 15.2 mmol/ L 21.0-3 2.0 below low normal Not Available [facility] Department [address] [place] [address], [address], 01/02/2023 17:10:11 01/02/20 23 01/02/2023 COMP. METAB OLIC PANEL (14) calcium 9.6 mg/dL 8.2-10 .0 Not Available [facility] Department [address] [place] [address], [address], 01/02/2023 17:10:11 01/02/20 23 01/02/2023 COMP. METAB OLIC PANEL (14) protein, total 7.4 g/dL 6.7-8. 2 Not Available [facility] Department [address] [place] [address], [address], 01/02/2023 17:10:11 01/02/20 23 01/02/2023 COMP. METAB OLIC PANEL (14) albumin 4.8 g/dL 3.5-5. 5 Not Available [facility] Department [address] [place], [address], 01/02/2023 17:10:11 01/02/20 23 01/02/2023 COMP. METAB OLIC PANEL (14) globulin, total 2.6 g/dL 1.5-4. 5 Not Available [facility] Department [address] [place], [address], 01/02/2023 17:10:11 01/02/20 23 01/02/2023 COMP. METAB OLIC PANEL (14) A/G ratio 2.0 Not Available [facility] Department [address] [place], [address], 01/02/2023 17:10:11 01/02/20 23 01/02/2023 COMP. METAB OLIC PANEL (14) bilirubin, total 0.3 mg/dL 0.0-1. 2 Not Available [facility] Department [address] [place], [address], 01/02/2023 17:10:11 01/02/20 23 01/02/2023 COMP. METAB OLIC PANEL (14) alkaline phosphatase 53.6 IU/L 42.0-1 21.0 Not Available [facility] Department [address] [place], [address], 01/02/2023 17:10:11 01/02/20 23 01/02/2023 COMP. METAB OLIC PANEL (14) AST (SGOT) 19.7 U/L 10.0-4 2.0 Not Available [facility] Department [address] [place], [address], 01/02/2023 17:10:11 01/02/20 23 01/02/2023 COMP. METAB OLIC PANEL (14) ALT (SGPT) 23.7 U/L 10.0-6 0.0 Not Available [facility] Department [address] [place] [address], [address], 01/02/2023 17:10:11 01/02/20 23 01/01/2023 CBC WITH DIFFE RENTI AL/PL ATELE T WBC 6.1 K/uL 3.4-10 .8 Not Available [facility] Department [address] [place], [address], 01/02/2023 17:10:11 01/02/20 23 01/01/2023 CBC WITH DIFFE RENTI AL/PL ATELE T RBC 5.1 M/uL 4.2-5. 4 Not Available [facility] Department [address] [place], [address], 01/02/2023 17:10:11 01/02/20 23 01/01/2023 CBC WITH DIFFE RENTI AL/PL ATELE T hemoglobin 14.9 g/dL 11.5-1 5.5 Not Available [facility] Department [address] [place], [address], 01/02/2023 17:10:11 01/02/20 23 01/01/2023 CBC WITH DIFFE RENTI AL/PL ATELE T hematocrit 45.9 % 36.0-4 8.0 Not Available [facility] Department [address] [place], [address], 01/02/2023 17:10:11 01/02/20 23 01/01/2023 CBC WITH DIFFE RENTI AL/PL ATELE T MCV 90 fL 80-95 Not Available [facility] Department [address] [place], [address], 01/02/2023 17:10:11 01/02/20 23 01/01/2023 CBC WITH DIFFE RENTI AL/PL ATELE T MCH 29 pg 27-32 Not Available [facility] Department [address] [place], [address], 01/02/2023 17:10:11 01/02/20 23 01/01/2023 CBC WITH DIFFE RENTI AL/PL ATELE T MCHC 33 g/dL 32-36 Not Available [facility] Department [address] [place], [address], 01/02/2023 17:10:11 01/02/20 23 01/01/2023 CBC WITH DIFFE RENTI AL/PL ATELE T RDW 12.5 % 11.5-1 4.5 Not Available [facility] Department [address] [place], [address], 01/02/2023 17:10:11 01/02/20 23 01/01/2023 CBC WITH DIFFE RENTI AL/PL ATELE T platelets 264 K/uL 155-37 9 MPV 10.1 FL 8.9-1 2.7 N Not Available [facility] Department [address] [place], [address], 01/02/2023 17:10:11 01/02/20 23 01/01/2023 CBC WITH DIFFE RENTI AL/PL ATELE T neutrophils 55.4 % 40.0-7 4.0 Not Available [facility] Department [address] [place], [address], 01/02/2023 17:10:11 01/02/20 23 01/01/2023 CBC WITH DIFFE RENTI AL/PL ATELE T lymphs 34.6 % 14.0-4 6.0 Not Available [facility] Department [address] [place], [address], 01/02/2023 17:10:11 01/02/20 23 01/01/2023 CBC WITH DIFFE RENTI AL/PL ATELE T monocytes 6.7 % 4.0-12 .0 Not Available [facility] Department [address] [place], [address], 01/02/2023 17:10:11 01/02/20 23 01/01/2023 CBC WITH DIFFE RENTI AL/PL ATELE T eos 1 % 0-5 Not Available [facility] Department [address] [place], [address], 01/02/2023 17:10:11 01/02/20 23 01/01/2023 CBC WITH DIFFE RENTI AL/PL ATELE T basos 0.7 % 0.0-1. 0 Not Available [facility] Department [address] [place], [address], 01/02/2023 17:10:11 01/02/20 23 01/01/2023 CBC WITH DIFFE RENTI AL/PL ATELE T neutrophils (absolute) 3.4 K/uL 1.4-7. 0 Not Available [facility] Department [address] [place], [address], 01/02/2023 17:10:11 01/02/20 23 01/01/2023 CBC WITH DIFFE RENTI AL/PL ATELE T lymphs (absolute) 2.1 K/uL 0.7-3. 1 Not Available [facility] Department [address] [place], [address], 01/02/2023 17:10:11 01/02/20 23 01/01/2023 CBC WITH DIFFE RENTI AL/PL ATELE T monocytes(ab solute) 0.4 K/uL 0.1-0. 9 Not Available [facility] Department [address] [place] [address], [address], 01/02/2023 17:10:11 01/02/20 23 01/01/2023 CBC WITH DIFFE RENTI AL/PL ATELE T eos (absolute) 0.1 K/uL 0.0-0. 4 Not Available [facility] Department [address] [place], [address], 01/02/2023 17:10:11 01/02/20 23 01/01/2023 CBC WITH DIFFE RENTI AL/PL ATELE T baso (absolute) 0.0 K/uL 0.0-0. 3 Not Available [facility] Department [address] [place], [address], 01/02/2023 17:10:11 01/02/20 23 01/01/2023 CBC WITH DIFFE RENTI AL/PL ATELE T immature granulocytes 1.3 % Not Available [facility] Department [address] [facility], [place], [address], 01/02/2023 17:10:11 01/02/20 23 01/01/2023 CBC WITH DIFFE RENTI AL/PL ATELE T immature grans (abs) 0.1 K/uL Not Available [facility] Department [address] [place], [address], 01/02/2023 17:10:11 01/02/20 23 01/01/2023 CBC WITH DIFFE RENTI AL/PL ATELE T NRBC 0 % Not Available [facility] Department [address] [place], [address], 01/02/2023 17:10:11 01/02/20 23 01/02/2023 VITAM IN [...] Endoc rine Socie ty went on to [facility] er defin e vitam in D insuf ficie ncy as a level betwe en 21 and 29 ng/mL (2). 1. IOM (Inst itute of Medic ine). 2010. Dieta ry refer ence intak es for calci um and D. Sisi escalante [place]: The Natio n[facility] Press . 2. Laura chen MF, Constance ey [place], Alexx off-F errar i JORDAN, et al. Evalu ation , treat ment, and preve ntion of vitam in D defic iency : an Endoc rine Socie ty clini migdalia pract ice guide line. JCEM. 2010; 96(7) :1911 -30. Not Available [facility] ([facility]) [address], [place], [address], 01/05/2023 10:09:00 01/02/20 23 01/01/2023 FOOD ALLER [...] >100. 00 Very High Not Available [facility] ([facility]) [address], [place], [address], 01/05/2023 10:09:00 01/02/20 23 01/05/2023 FOOD ALLER GY PROFI LE C814-PiL egg white <0.10 Not Available [facility] ([facility]) [address] [place], [address], 01/05/2023 10:09:00 01/02/20 23 01/05/2023 FOOD ALLER GY PROFI LE T262-BrX peanut <0.10 Not Available [facility] ([facility]) [address] [place], [address], 01/05/2023 10:09:00 01/02/20 23 01/05/2023 FOOD ALLER GY PROFI LE D199-SkG soybean <0.10 Not Available [facility] ([facility]) [address] [place], [address], 01/05/2023 10:09:00 01/02/20 23 01/05/2023 FOOD ALLER GY PROFI LE X523-JcV milk <0.10 Not Available [facility] ([facility]) [address], [place], [address], 01/05/2023 10:09:00 01/02/20 23 01/05/2023 FOOD ALLER GY PROFI LE S913-BrU clam <0.10 Not Available [facility] ([facility]) [address] [place], [address], 01/05/2023 10:09:00 01/02/20 23 01/05/2023 FOOD ALLER GY PROFI LE O692-CyM shrimp <0.10 Not Available [facility] ([facility]) [address] [place], [address], 01/05/2023 10:09:00 01/02/20 23 01/05/2023 FOOD ALLER GY PROFI LE W707-GxQ walnut <0.10 Not Available [facility] ([facility]) [address] [place], [address], 01/05/2023 10:09:00 01/02/20 23 01/05/2023 FOOD ALLER GY PROFI LE K330-OrR codfish <0.10 Not Available [facility] ([facility]) [address] [place], [address], 01/05/2023 10:09:00 01/02/20 23 01/05/2023 FOOD ALLER GY PROFI LE S298-AzC scallop <0.10 Not Available [facility] ([facility]) [address] [place], [address], 01/05/2023 10:09:00 01/02/20 23 01/05/2023 FOOD ALLER GY PROFI LE Q198-FcG wheat <0.10 Not Available [facility] ([facility]) [address] [facility], [place], [address], 01/05/2023 10:09:00 01/02/20 23 01/05/2023 FOOD ALLER GY PROFI LE F438-IoX corn <0.10 Not Available [facility] ([facility]) [address] [facility], [place], [address], 01/05/2023 10:09:00 01/02/20 23 01/05/2023 FOOD ALLER GY PROFI LE X483-RnJ sesame seed <0.10 Not Available [facility]) [address] [place], [address], 01/05/2023 10:09:00 01/02/20 23 01/02/2023 TSH RFX ON ABNOR MAL TO FREE T4 TSH 1.030 uIU/m L 0.450- 4.500 Not Available [facility] ([facility]) [address], [place], [address], 01/05/2023 10:08:59 01/02/20 23 01/02/2023 WALESKA C DISEA SE PANEL endomysial antibody IgA NEGATI VE negati ve Not Available [facility] ([facility]) [address] [place], [address], 01/05/2023 10:08:58 01/02/20 23 01/02/2023 [place]ES[place] C DISEA SE PANEL T-transgluta minase (ttg) IgA <2 U/mL 0-3 Negat amilcar 0 - 3 Weak Posit amilcra 4 - 10 Posit amilcar >10 Tissu e Trans gluta renato e (tTG) has been ident ified as the endom ysial antig en. Studi es have demon str- ated that endom ysial IgA antib odies have over 99% speci ficit y for glute n sensi tive enter opath y. Not Available [facility] ([facility]) [address] [place], [address], 01/05/2023 10:08:58 01/02/20 23 01/02/2023 WALESKA C DISEA SE PANEL immunoglobul in A, qn, serum 174 mg/dL 87-352 Not Available [facility] ([facility]) [address] [facility], [place], [address], 01/05/2023 10:08:58 01/02/20 23 01/01/2023 HbA1c (hemo globi n A1c), blood HbA1c 6.3 Not Available In-Office Order Internal Use Only DO Not Attach Compendium DO Not Attach Compendium, Do Not Delete/merge, [id number] 01/01/2023 08:50:48 01/07/2001/08/2023 H PYLOR I BREAT H TEST H pylori breath test NEGATI VE negati ve Not Available [facility] ([facility]) [address] [facility], [place], [address], 01/08/2023 07:14:05 02/25/20 23 02/25/2023 NUSWA B VAGIN ITIS PLUS (VG+) atopobium vaginae Low - 0 score Not Available [facility] ([facility]) [address] [facility], [place], [address], 02/26/2023 06:15:09 02/25/20 23 02/25/2023 NUSWA B VAGIN ITIS PLUS (VG+) bvab 2 Low - 0 score Not Available [facility] ([facility]) [address] [place], [address], 02/26/2023 06:15:09 02/25/20 23 02/25/2023 NUSWA B [...] Drug Admin istra tion. Not Available [facility] ([facility]) [address] [place], [address], 02/26/2023 06:15:09 02/25/20 23 02/25/2023 NUSWA B VAGIN ITIS PLUS (VG+) bryson albicans, NELSY Negati ve negati ve Not Available [facility] ([facility]) [address] [place], [address], 02/26/2023 06:15:09 02/25/20 23 02/25/2023 NUSWA B VAGIN ITIS PLUS (VG+) bryson glabrata, NELSY Negati ve negati ve Not Available [facility] ([facility]) [address] [place], [address], 02/26/2023 06:15:09 02/25/20 23 02/26/2023 NUSWA B VAGIN ITIS PLUS (VG+) trich vag by NELSY Negati ve negati ve Not Available [facility] ([facility]) [address] [place], [address], 02/26/2023 06:15:09 02/25/20 23 02/26/2023 NUSWA B VAGIN ITIS PLUS (VG+) chlamydia trachomatis, NELSY Negati ve negati ve Not Available [facility] ([facility]) [address] [place], [address], 02/26/2023 06:15:09 02/25/20 23 02/26/2023 NUSWA B VAGIN ITIS PLUS (VG+) neisseria gonorrhoeae, NELSY Negati ve negati ve Not Available [facility] ([facility]) [address], [place], [address], 02/26/2023 06:15:09 11/25/19 17 imagi ng/di agnos tic resul t No observ ation record ed. [facility] ([facility]) [address], [place], [address], 01/01/2023 12:38:49 08/21/20 17 XR, chest , 2 view No observ ation record ed. Not Available 2022 12:38:49 08/11/20 22 08/11/2022 imagi ng inter preta tion No observ ation record ed. [facility] [address], [place], [address], 01/01/2023 12:38:48 08/11/20 22 08/11/2022 imagi ng inter preta tion No observ ation record ed. [facility] [address], [place], [address], 01/01/2023 12:38:48 02/27/20 23 09/24/2022 US, pelvi s, trans abdom inal + trans vagin al No observ ation record ed. [facility] [address], [place], [address], 03/04/2023 13:36:54 12/16/19 24 12/16/2023 US, duple x, venou s, lower extre mity No observ ation record ed. [facility] [address], [place], [address], 12/18/2023 10:39:34 12/16/19 24 12/16/2023 trans -thor acic echoc ardio gram (TTE) (PROC ) No observ ation record ed. [email or web address] [facility] [address], [place], [address], 12/17/2023 16:10:03 03/07/20 24 03/07/2024 CT, abdom en + pelvi s, w/ contr ast No observ ation record ed. [email or web address] [facility] [address], [place], [address], 03/14/2024 08:49:28 Result Notes None recorded. 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 Procedures Surgical History Date Name Laterality Status Provider Name and Address Organization Details Recorded Time 01/08/20 24 Total hysterectomy completed MADHAV LOPEZ PA-C Attn: Accounting, [address] , [place], [address], [facility] 01/13/2024 12:11:59 07/10/20 22 Date of Last Pap Smear completed Roxana Cavazos MA [facility] 01/01/2023 08:35:43 09/21/19 10 Cholecystectomy completed Madhav Lopez [facility] 09/27/19 15 15:57:35 09/21/18 90 Tonsillectomy completed Madhav Lopez [facility] 09/27/2014 15:57:35 09/21/18 86 Heart Surgery completed Madhav Lopez [facility] 09/27/2014 15:57:35 Imaging Results None recorded. Procedure [...] Details Last Updated DateTime 5 16 /min 46425.7 26402 g 72 /min 31.2 kg/m2 167.64 cm 98.1 [degF] 110/60 mm[Hg] Madhav Lopez [facility] 5 15:57:35 Date Recorded Body height Body mass index (BMI) Body weight Heart rate Body temperature Oxygen saturation Systolic And Diastolic Provider Name and Address Organization Details Last Updated DateTime 3 167.64 cm 34.9 kg/m2 67081.9 5 g 83 /min 98.6 [degF] 96 % 102/60 mm[Hg] Roxana Cavazos MA [facility] 3 08:33:30 Date Recorded Body height Body mass index (BMI) Body weight Heart rate Body temperature Oxygen saturation Systolic And Diastolic Provider Name and Address Organization Details Last Updated DateTime 3 167.64 cm 34.9 kg/m2 23093.7 5 g 79 /min 98.7 [degF] 98 % 120/80 mm[Hg] Roxana Cavazos MA [facility] 3 10:39:07 Date Recorded Body height Body mass index (BMI) Body weight Heart rate Oxygen saturation Systolic And Diastolic Provider Name and Address Organization Details Last Updated DateTime 3 167.64 cm 34.9 kg/m2 53843.7 5 g 83 /min 96 % 102/70 mm[Hg] Maegan Beltrán MA [facility] 3 08:31:17 Date Recorded Body weight Oxygen saturation Body height Body temperature Heart rate Body mass index (BMI) Systolic And Diastolic Provider Name and Address Organization Details Last Updated DateTime 5 60430.6 77769 g 98 % 167.64 cm 98.6 [degF] 72 /min 31.1 kg/m2 98/52 mm[Hg] Nithin Bo MA [facility] 5 10:01:26 Social History Question Answer Notes LastModified by Organizat ion Details LastModified Time Tobacco Smoking Status Never Smoker Madhav [facility], [place] - [facility] 09/27/2014 15:57:35 Do You Have An Advance [...] Atrial Fibrillation N High Blood Pressure N Thyroid Problems N Kidney or Bladder Problems N Depression N COPD N Blood Clots N GI Problems N Skin Problems N Anemia N Heart Attack (UT) N Diabetes N Anxiety Disorder Y Muscle, Joint, or Bone Problems N Seizures/Epilepsy Y Acid Reflux (GERD) Y Cancer N Stroke N Allergies N Asthma N High Cholesterol N Hepatitis N Liver [...] preservative 0 completed Rubina Mendoza LPN null, [facility] 11/27/2020 09:34:58 Influenza, split virus, quadrivalent, PF 9 completed Rubina Mendoza LPN null, [facility] 11/27/2020 09:34:58 Past Encounters Encounter ID Performer Location Encounter Start Date Encounter Closed Date Diagnosis/Indication Diagnosis SNOMED-CT Code Diagnosis ICD10 Code Diagnosis IMO Codes Diagnosis Note [id number] MD Marco Cuba (Adult Med) [address] [place] [address] 0 09/27/2014 15:37:48 09/27/2014 17:22:46 Depressive disorder 78386070 Plantar fasciitis 936597504 Obesity 113921513 [id number] Rodrigo Rizvi MD [facility] (Adult Med) [address] [place] [address] 0 07/19/2015 09:45:41 07/19/2015 13:01:23 Cellulitis of face 398794826 L03.684 [id number] [facility] [address] [place] [address] [phone] 0 01/01/2023 08:19:10 01/01/2023 14:57:36 Essential hypertension 93031650 I10 BP Today: 102/60c/w losartan 25 mg, [...] QD. Being prescribed by OBGYNc/w sertraline Obesity 237859256 E66.9 BMI 34.9 today- Patient given handouts on healthy lifestyle and diet Impaired g lucose tolerance 0365963 R73.03 Last A1C: 6.3 today (01/01/2023 )Current [...] A1c today Irritable bowel syndrome with diarrhea 382818962 K58.0 Patient presenting with abdominal pain almost [...] high fiber diet Vitamin D deficiency 347 23167 E55.9 Vit. D prescribed by her OBGYN- Check Vit. D levels Dyspareunia 03544714 N94 .10 Patient c/o Dyspareuni a x [...] OBGYN- Patient given handouts on painful sex [id number] SHERLYN LIVINGSTON (Adult Med) [facility] [place] [address] 02/10/2023 10:30:40 02/11/2023 14:04:34 Irritable bowel syndrome with diarrhea 195870299 K58.0 States her abdominal pain and loose [...] for IBS, and high fiber diet Dyspareunia 12244643 N94 .10 Patient c/o Dyspareuni a x [...] Patient given handouts on painful sex Obesity 379935305 E66.9 BMI 34.9 today- Patient given handouts on healthy lifestyle and diet Memory impairment 002567 006 R41.3 Complainin g of forgetfuln ess [...] with hx of seizures and migraines Insomnia 297650630 G47.0 0 Issues sleeping at night, my [...] that helps with trusting her [facility] 232060955 N30.10 Diagnosed with IC by her OBGYN, admits to bladder pain after drinking certain types of liquids and with holding her bladder for long periods of time- continue without tx for now- could be playing role in pelvic pain? Depression screening 171 846842 Z13.31 PHQ 2/9 was negative in office today (0 out of 27) [id number] SHERLYN LIVINGSTON (Adult Med) [address] [place] [phone] 02/24/2023 08:23:49 02/25/2023 11:58:09 Dyspareunia 66390381 N94.10 Patient c/o Dyspareuni a x > [...] be called with results when available Obesity 890068614 E66.9 BMI 34.9 today- Patient given handouts [...] UNSPECIFIED REMIT PAYOR Destini Skinner 01/01/2023 1 [facility] [employer] [facility] PRIOR TO 2021 (MEDICAID REPLACEMENT - HMO) Destini Skinner [id number] Destini Skinner 01/01/2023 1 [facility] (MEDICAID HMO) [id number] Destini Skinner [id number] Destini Skinner 04/04/2023 2 [facility] PRIOR TO 04/21/2025 (MEDICAID REPLACEMENT - HMO) [id number] Destini Skinner [id number] Destini Skinner 03/30/2023 1 [facility] ([facility]) [id number] Destini Skinner [id number] Destini Skinner Notes Date Note Type Note Provider Name and Address Organization Details Recorded Time 07/19/2015 text/html broken tooth.Can not a appointment to see her dentist untill next month. 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 Patient on Jardiance for pre-diabetes. A1c [...] dysuria. SHERLYN LIVINGSTON Attn: [address]ing[address] [facility], [place], [address], [facility] 01/01/2023 12:40:17 02/10/2023 text/html ROS as noted [...] dysuria. SHERLYN LIVINGSTON Attn: Accounting[address] [facility], [place], [address], [facility] 02/10/2023 15:15:00 02/24/2023 text/html ROS as noted [...] and hematuria. SHERLYN LIVINGSTON Attn: Accounting[address] [place], [address], [facility] - [facility] 02/24/2023 13:51:39 OBGyn Episode No OBEpisode recorded.
--- OUTSIDE RECORDS SUMMARY | 2025-09-14 13:43 | XMS_ITS | Encounter Summary ---
Author Organization [facility] Address [facility] [place] [address] Care Team Providers Care Visual Artist Name Role Phone Alida Klein MD Primary Care Provider [phone] Encounter Details Date Type Department Care Team (Late st Contact Info) Description 06/06/2025 MyChart Message Enc [facility] Multispecialty Care - [place] [address] [place] [address] [address] [place] [address] Alida Klein MD [address] [place] [address] [address] [place] [address] Nausea Social History Tobacco Use Types Packs/Day [...] PM CDT Legal Sex Female 7:40 PM INSTALLATION SPECIALIST Gender Identity Female 03/25/2024 3:16 PM CDT Sexual Orientation Straight 03/25/2024 3: 16 PM CDT documented as of this encounter Plan of Treatment Upcoming Encounters Date Type Department Care Team (Late st Contact Info) Description 09/25/2025 8:00 AM INSTALLATION SPECIALIST Office Visit [facility] Multispecialty Care [place] [address] [address] [place] [address] Alida Klein MD [address] [place] [address] [phone] documented as of this encounter Visit Diagnoses Not on filedocumented in this encounter Care Teams Visual Artist Relationship Specialty Start Date End Date Alida Klein MD [address] [place] [address] [phone] PCP - General INTERNAL MEDICINE 03/23/24 documented as of this encounter
--- OUTSIDE RECORDS SUMMARY | 2025-09-14 13:43 | XMS_ITS | Continuity of Care Document ---
Author Organization [facility] [place] Address [address] [place] [address] Care Team Providers Care Rn Placement Name Role Phone MONICA PERALTA Primary Care [...] No observ ation record ed. [email or web address] Maribell [address] [place] [address], [place], [address], 06/22/2025 21:12:46 06/22/2006/22/2025 , trans vagin al No observ ation record ed. [facility] [address], [place], [address], 06/22/2025 15:27:27 Result Notes None recorded. Procedures Surgical History Date Name Laterality Status Provider Name and Address Organization Details Recorded Time 01/08/20 24 TOTAL HYSTERECTOMY, LAPAROSCOPIC, WITH BILATERAL SALPINGECTOMY (SURG) completed Rachel Agarwal [facility] 01/13/2024 14:32:15 05/28/20 23 Date of Last Pap Smear [facility] 06/15/2023 09:31:12 09/21/19 19 [facility] 06/15/2023 09:32:45 09/21/19 19 Colposcopy completed [facility] 06/15/2023 09:35:24 09/21/19 17 procedure on heart completed Shwetastephon Kolb [facility] 05/28/2023 10:22:29 09/21/19 10 cholecystectomy completed [facility] 06/15/2023 09:35:53 09/21/18 90 tonsilectomy/adeno ids completed [facility] 06/15/2023 09:35:35 09/21/18 86 procedure on [...] medicatio n cough mild Not available 05/28/2023 51759 8 RxNorm Shweta Kolb [facility] 3 10:00:37 58148 citrus bioflavon oids food,medi cation Not available Not available low 08/07/20252024 84457 2 RxNorm unrec ogniz ed react ion (text : Nause a and Vomit ing, code: 94046 000) (from exter nal sour e) Not Available hewitt - External Data Service - prod 5 08:56:05 64260 butylscop olamine bromide Not available Not available Not available Not available 08/07/20252024 1851 RxNorm unrec ogniz ed react ion (text : Blurr ed visio n, code: 18334 6008) (from exter nal [facility] e) Not Available claire - External [...] Take 1 tablet by mouth once daily 12/08/ 2025 active Not Available Not Available Not Avai [...] Updated DateTime 06/22/2025 167.64 cm 28.6 kg/m2 48079.85 g 122/77 mm[Hg] Carmela Cho [facility] 06/22/2025 12:49:50 Social History Question Answer Notes LastModified by Organizat ion Details LastModified Time Tobacco Smoking Status Never Smoker Kera matthews, [facility] 06/15/2023 09:35:14 Do You Have [...] Or The Highest Degree You Have Received? [id number] Information not available 05/28/2023 Are There Any Guns Present In Your Home? No Information not available 05/28/2023 Have You Ever Been Counseled For Unhealthy Alcohol Use? No [email or web address] Information not available 06/15/2023 Do You Use [...] Has Tobacco Cessation Counseling Been Provided? No [email or web address] Information not available 06/15/2023 Have You Used IV Drugs? No Information not available 05/28/2023 Do You Have Difficulty Walking Or Climbing Stairs? No Information not available 06/15/2023 Sex: Unknown Functional Status Question Answer Note LastModified by Organizat ion Details LastModified Time Do you use any illicit or recreational drugs? Yes Information not available 05/28/2023 Do you or have you ever used any other forms of tobacco or nicotine? No [email or web address] Information not available 06/15/2023 What is your level of alcohol consumption? Occasional Information not available 05/28/2023 Are you able to walk independently without assistance or assistive devices? YESWOREST Information not available 05/28/2023 Are you able to care for yourself independently? 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 No Information not available 06/15/2023 What is your exercise level? Occasional Information not available 05/28/2023 Mental Status Question Answer Note LastModified by Organization D etails LastModified Time Do you feel stressed (tense, restless, nervous, or anxious, or unable to sleep at night)? [id number] [email or web address] Information not available 03/27/2025 Family History Relationship [...] ICD10 Code Diagnosis IMO Codes Diagnosis Note [id number] Jake Humphreys MD [place] [address] [address] 06/22/2025 12:11:56 06/22/2025 13:15:34 Cyst of ovary 72186741 N83.209 [id number] This patient is a 40-year-ol d female [...] care in total. We agreed to observe. [id number] Jake Humphreys MD [place] [address] [address] 06/22/2025 13:30:49 06/22/2025 13:47:30 Pain in pelvis 56287809 R10.20 270405 Health Concerns Section Related Observation LastModified by Organization Detai ls LastModified Time None Recorded Concern Status LastModified by Organization Details LastModified Time None Recorded Payers Encounter Date Sequence Insurance Name Policy Number Policy Barton Covered Member ID Barton Member ID Guarantor Name 06/22/2025 1 [facility] [id number] Destini Skinner [id number] Destini Skinner Notes Date Note Type Note [...] observe. Jake Humphreys MD [address], [place], [address], [facility] 06/22/2025 18:13:20 OBGyn Episode No OBEpisode recorded.
--- OUTSIDE RECORDS SUMMARY | 2025-09-14 13:43 | XMS_ITS | Clinical Summary ---
Author Organization [facility] Care Team Providers Care Art Supervisor Name Role Phone Unavailable Primary Care [...]
--- OUTSIDE RECORDS SUMMARY | 2025-09-14 13:43 | XMS_ITS | Encounter Summary ---
Author Organization [facility] Address [facility] hospital[address] [place] [address] Care Team Providers Care Boiler Out Name Role Phone Alida Klein MD Primary Care Provider Encounter Details Date Type Department Care Team (Late st Contact Info) Description 05/20/2024 MyChart Message Enc [facility] Multispecialty Care - [place] [address] [address] [place], [place] [phone] Alida Klein MD [address] [place] [address] [address] [place], [place] [phone] Lab results. 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 Sex Female 7:40 PM FORENSICS TEAM DIRECTOR Gender Identity Female 03/25/2024 3:16 PM CDT Sexual Orientation Straight 03/25/2024 3: 16 PM CDT documented as of this encounter Plan of Treatment Upcoming Encounters Date Type Department Care Team (Late st Contact Info) Description 09/25/2025 8:00 AM FORENSICS TEAM DIRECTOR Office Visit [facility] Multispecialty Care - [place] [address] [address] [place] [address] Alida Klein MD [address] [place] [address] documented as of this encounter Visit Diagnoses Not on filedocumented in this encounter Additional Health Concerns Infection Onset Date Last Indicated Resolved Time COVID-19 Rule Out 09/30/2024 09/30/2024 09/30/2024 3:56 PM FORENSICS TEAM DIRECTOR documented as of this encounter Care Teams Boiler Out Relationship Specialty Start Date End Date Alida Klein MD [address] [place] [id number] PCP - General INTERNAL MEDICINE 03/23/24 documented as of this encounter
--- OUTSIDE RECORDS SUMMARY | 2025-09-14 13:43 | XMS_ITS | Encounter Summary ---
Author Organization [facility] Address [facility] [place] [address] Care Team Providers Care Timber Repairer Name Role Phone Alida Klein MD Primary Care Provider [phone] Encounter Details Date Type Department Care Team (Late st Contact Info) Description 05/18/2024 MyChart Message Enc [facility] Multispecialty Care - [place] [address] [place] [address] [address] [place] [address] Alida Klein MD [address] [place] [address] [address] [place] [address] Lab results Social History Tobacco Use Types [...] CDT Legal Sex Female 7:40 PM DIRECTOR EQUIPMENT Gender Identity Female 03/25/2024 3:16 PM CDT Sexual Orientation Straight 03/25/2024 3: 16 PM CDT documented as of this encounter Plan of Treatment Upcoming Encounters Date Type Department Care Team (Late st Contact Info) Description 09/25/2025 8:00 AM DIRECTOR EQUIPMENT Office Visit [facility] Multispecialty Care - [place] [address] [address] [place] [address] Alida Klein MD [address] [place] [phone] documented as of this encounter Visit Diagnoses Not on filedocumented in this encounter Additional Health Concerns Infection Onset Date Last Indicated Resolved Time COVID-19 Rule Out 09/30/2024 09/30/2024 09/30/2024 3:56 PM DIRECTOR EQUIPMENT documented as of this encounter Care Teams Timber Repairer Relationship Specialty Start Date End Date Alida Klein MD [address] [place] [id number] PCP - General INTERNAL MEDICINE 03/23/24 documented as of this encounter
[2025-09-14 13:45] VITALS: BP 138/74; PULSE 74; RESP 16; TEMP 37.1; O2SAT 98
[2025-09-14 14:02] LABS: Hematocrit 40.9 % (37.0-47.0); Hemoglobin 13.8 g/dL (12.0-15.0); Immature Granulocyte Percent A 0.3 % (0-0.5); Lymphocytes Absolute Auto 1.87 K/mm3 (0.9-3.2); Mean Corpuscular HGB Conc 33.7 g/dl (32-36); Mean Corpuscular Hemoglobin 30.7 pg (26-34); Mean Corpuscular Volume 90.9 fl (80-100); Nucleated Red Blood Cells Absolute Auto 0.000 K/mm3 (0.0-0.012); Nucleated Red Blood Cells Perc 0.0 % (0.0-0.2); Platelet Count Result 217 k/mm3 (150-375); Red Blood Count 4.50 M/mm3 (4.2-5.4); White Blood Count 6.6 K/mm3 (4.5-10.0)
--- NOTE | 2025-09-14 14:09 | ED.ABDPAIN ---
HPI - Abdominal Pain General Chief Complaint: Abdominal Pain Stated Complaint: left abd pain Time Seen by Provider: 09/14/25 13:44 Source: patient Mode of arrival: ambulatory Limitations: no limitations History of Present Illness HPI narrative: This is a 40-year-old female who presents to the ED for left flank pain and lower abdominal pain. Patient states for the past week or so, she has been having the symptoms that started in her left flank and now radiating down to her left lower quadrant into her suprapubic region. She began having dysuria and difficulty urinating yesterday as well. Denies fevers, chills. She has had nausea and vomiting. Related Data Home Medications ?Medication ?Instructions ?Recorded ?Confirmed ?Last Taken ?Type aspirin 81 mg tablet,delayed 81 mg PO DAILY 05/06/20 07/26/25 11/13/24 History release (Adult Low Dose Aspirin) ergocalciferol (vitamin D2) 1,250 1,250 mcg PO WEEKLY 05/06/20 07/26/25 11/13/24 History mcg (50,000 unit) capsule (Vitamin D2) acyclovir 800 mg tablet 800 mg PO HS 01/01/25 07/26/25 Unknown History oxybutynin chloride 10 mg 10 mg PO HS 01/01/25 07/26/25 Unknown History tablet,extended release 24 hr sertraline 100 mg tablet 50 mg PO QHS 01/19/25 07/26/25 Unknown History omeprazole 40 mg capsule,delayed 40 mg PO HS 07/26/25 07/26/25 Unknown History release semaglutide 0.25 mg or 0.5 mg (2 0.25 mg subcut WEEKLY 07/26/25 07/26/25 Unknown History mg/3 mL) subcutaneous pen injector (Ozempic) Allergies Allergy/AdvReac Type Severity Reaction Status Date / Time scopolamine (From AdvReac Intermediate visual Verified 09/14/25 13:48 Transderm-Scop) changes [place] And Derivatives AdvReac Mild Nausea and Verified 09/14/25 13:48 Vomiting Review of Systems Review of Systems: All systems reviewed & are unremarkable except as noted in HPI and below PMFSH Past Medical History Medical History Diabetes type 2, controlled Interstitial cystitis Pulmonary stenosis Depression with anxiety GERD (gastroesophageal reflux disease) Hx of pulmonary artery stenosis Surgical History Surgical History Pulmonary valve replaced Hx of cholecystectomy Hx of mitral valve replacement Hx of tonsillectomy Family History Family History Father Diabetes mellitus Lung cancer Social History Social History Smoking status: Never smoker Second hand tobacco smoke exposure: No Alcohol intake: current Alcohol use details: socially Substance use: current Substance use type: marijuana Other substance usage details: daily use both edibles and smoking Lack of Transportation: No Lack of Food: Sometimes True Current Housing: I Have Housing Concerned About Future Housing: No Difficulty Paying Gas/Electric Bills: YES Difficulty Paying for Meds: YES Currently Unemployed: No Education: High School Diploma/GED Living arrangements: alone Gender identity (if verbalized by the patient): Female Spiritual care concerns: No Exam Narrative: APPEARANCE: No acute distress, nontoxic, resting in bed EYES: EOMI HEENT: Normocephalic, atraumatic, OMM RESPIRATORY: No respiratory distress Clear to auscultation bilaterally with no rhonchi wheezing or rales. CARDIOVASCULAR: Regular rate and rhythm without murmurs rubs or gallops. ABDOMINAL: Soft, CVA tenderness on the left, left lower quadrant tenderness to palpation, no rebound or guarding MUSCULOSKELETAl: Moves all extremities. No clubbing, cyanosis or edema. NEURO: Awake and alert. Following commands, speech normal, no focal deficits SKIN:: Warm, dry. No rashes lesions or abrasions PSYCHIATRIC: Normal affect/mood, Course Vital Signs Vital signs: Vital Signs Temperature 98.7 F 09/14/25 13:45 Pulse Rate 74 09/14/25 13:45 Respiratory Rate 16 09/14/25 13:45 Blood Pressure 138/74 09/14/25 13:45 Pulse Oximetry 98 09/14/25 13:45 Oxygen Delivery Room Air 09/14/25 13:45 Temperature 98.7 F 09/14/25 13:45 Pulse Rate 72 09/14/25 15:25 Respiratory Rate 16 09/14/25 15:25 Blood Pressure 123/98 H 09/14/25 15:25 Pulse Oximetry 100 09/14/25 15:25 Oxygen Delivery Room Air 09/14/25 13:45 MDM MDM Narrative Medical decision making narrative: 4-year-old female Presenting for left flank and left lower quadrant abdominal pain. On initial evaluation patient was in no acute distress afebrile, hemodynamic stable. Differentials include but are not limited to: Ovarian torsion, ovarian cyst, Diverticulitis, constipation, ureterolithiasis, enterocolitis, colitis, obstruction, cancer Notable exam findings: Mild CVA tenderness on the left with mild left lower quadrant tenderness to palpation I personally reviewed the patient's lab result. Notable lab findings: CBC and CMP without significant abnormalities. UA clear. CT abdomen/pelvis showed no acute process. No clear reason for the patient's pain at this time. However, she does have pretty significant dysuria which is likely consistent with a urethritis despite the urinalysis. She was given a dose Keflex here in the ED. She was given a prescription for Zofran and Keflex. She was advised follow-up with her PCP in the next week for re-evaluation. Patient was agreeable to this plan. Given strict return precautions. Differential Diagnosis Differential Diagnosis: Ovarian torsion, ovarian cyst, Diverticulitis, constipation, ureterolithiasis, enterocolitis, colitis, obstruction, cancer Lab Data 09/14/25 13:55 09/14/25 13:55 Labs: Lab Results 09/14/25 09/14/25 Range/Units 13:55 14:38 WBC 6.6 (4.5-10.0) K/mm3 RBC 4.50 (4.2-5.4) M/mm3 Hgb 13.8 (12.0-15.0) g/dL Hct 40.9 (37.0-47.0) % MCV 90.9 (80-100) fl MCH 30.7 (26-34) pg MCHC 33.7 (32-36) g/dl RDW 11.7 (11.5-14.5) % Plt Count 217 (150-375) k/mm3 MPV 9.4 (7.4-10.4) fl Immature Gran % (Auto) 0.3 (0-0.5) % Neut % (Auto) 64.2 (45.5-73.1) % Lymph % (Auto) 28.2 (18.3-44.2) % [place] % (Auto) 5.9 (2.6-8.5) % Eos % (Auto) 0.8 (0-4.4) % Baso % (Auto) 0.6 (0.2-1.2) % Lymph # (Auto) 1.87 (0.9-3.2) K/mm3 [place] # (Auto) 0.4 (0.1-0.6) K/mm3 Eos # (Auto) 0.1 (0-0.3) K/mm3 Baso # (Auto) 0.0 (0.0-0.1) K/mm3 Abs Immat Gran (auto) 0.02 (0.00-0.031) K/mm3 Absolute Neuts (auto) 4.3 (1.3-6.7) K/mm3 Absolute Nucleated RBC 0.000 (0.0-0.012) K/mm3 Nucleated RBC % 0.0 (0.0-0.2) % Sodium 138 (137-145) mmol/L Potassium 3.7 (3.4-5.0) mmol/L Chloride 105 (98-107) mmol/L Carbon Dioxide 22 (22-30) mmol/L Anion Gap 11 (4-12) mmol/L BUN 15 (7-17) mg/dL Creatinine 0.69 L (0.7-1.0) mg/dL Estim Creat Clear Calc 98 ml/min Estimated GFR > 60 (59 - ) Glucose 108 (65-110) mg/dL Calcium 9.4 (8.4-10.2) mg/dL Total Bilirubin 0.7 (0.2-1.3) mg/dL AST 33 (14-36) U/L ALT 27 (6-35) U/L Alkaline Phosphatase 57 (38-126) U/L Total Protein 8.1 (6.3-8.2) g/dL Albumin 4.8 (3.5-5.1) g/dL Lipase 72 (23-300) U/L Urine Color Yellow (Yellow) Urine Appearance Cloudy H (Clear) Urine pH 5.5 (5.0-9.0) Ur Specific [place] > 1.045 H (1.001-1.035) Urine Protein Trace (Negative) mg/dL Urine Glucose (UA) 3+ H (Negative) mg/dL Urine Ketones 1+ H (Negative) mg/dL Ur Blood (Man) Negative (Negative) Urine Nitrate Negative (Negative) Urine Bilirubin Negative (Negative) Urine Urobilinogen 0.2 (<2.0) mg/dL Add Ur Microanalysis Reviewed Leukocyte Esterase Rfl Negative (Negative) CHAKA/UL Urine RBC 0-2 (0-2) /hpf Urine WBC 0-5 (0-3) /hpf Ur Squamous Epith Cells Occasional (Few) /hpf Urine Bacteria None seen /hpf Urine Casts 3-5 Imaging Data Radiologist's impression: ITS Impressions Abdomen/Pelvis CT 09/14/25 14:42 IMPRESSION: 1. Nonobstructing right nephrolithiasis. Discharge Plan Discharge Clinical Impression: Left lower quadrant abdominal pain UTI (urinary tract infection) Qualifiers: Urinary tract infection type: urethritis Qualified Code(s): N34.2 - Other urethritis Patient Disposition: Home Condition: Stable Instructions: Antibiotic Form, Dysuria (ED), Abdominal Pain (ED) Additional Instructions: Take Keflex and Zofran as prescribed. Follow-up with your PCP in the next week for re-evaluation. Return to the ED for any new or worsening symptoms. Patient Language: Lao Prescriptions: New cephalexin 500 mg capsule 500 mg PO Q12H Qty: 10 0RF ondansetron 4 mg tablet,disintegrating 4 mg PO Q8H PRN (Reason: nausea and vomiting) Qty: 12 0RF No Action aspirin [Adult Low Dose Aspirin] 81 mg Tablet,Delayed Release (Dr/Ec) 81 mg PO DAILY Patient Comments: patient takes HS ergocalciferol (vitamin D2) [Vitamin D2] 1,250 mcg (50,000 unit) Capsule 1,250 mcg PO WEEKLY Patient Comments: PT TAKES ON THURSDAY oxybutynin chloride 10 mg tablet extended release 24hr 10 mg PO HS acyclovir 800 mg tablet 800 mg PO HS sertraline 100 mg tablet 50 mg PO QHS omeprazole 40 mg capsule,delayed release(DR/EC) 40 mg PO HS Ozempic 0.25 mg or 0.5 mg (2 mg/3 mL) pen injector 0.25 mg subcut WEEKLY Patient Comments: Patient normally takes on Saturdays for type 2 Diabetes hydrocodone-acetaminophen 5-325 mg tablet 1 tablet PO Q4H PRN (Reason: pain) Qty: 20 0RF metoclopramide HCl [Reglan] 10 mg tablet 10 mg PO Q6H PRN (Reason: nausea and vomiting) Qty: 14 0RF Follow-up/Referrals: Latoya,MD Alida [Primary Care Provider, Unknown]
[2025-09-14 14:13] LABS: Alanine Aminotransferase 27 U/L (6-35); Albumin Level 4.8 g/dL (3.5-5.1); Alkaline Phosphatase 57 U/L (38-126); Anion Gap 11 mmol/L (4-12); Aspartate Amino Transferase 33 U/L (14-36); Bilirubin,Total 0.7 mg/dL (0.2-1.3); Blood Urea Nitrogen 15 mg/dL (7-17); Calcium 9.4 mg/dL (8.4-10.2); Carbon Dioxide 22 mmol/L (22-30); Chloride 105 mmol/L (98-107); Estimated CRCL calculation 98 ml/min; Estimated Glomerular Filt Rate > 60; Glucose 108 mg/dL (65-110); Lipase 72 U/L (23-300); Potassium 3.7 mmol/L (3.4-5.0); Sodium 138 mmol/L (137-145); Total Protein 8.1 g/dL (6.3-8.2)
--- OUTSIDE RECORDS SUMMARY | 2025-09-14 14:25 | XMS_ITS | Encounter Summary ---
Author Organization [facility] Address [facility] [place] [address] Care Team Providers Care Batch Plant Supervisor Name Role Phone Alida Klein MD Primary Care Provider [phone] Encounter Details Date Type Department Care Team (Late st Contact Info) Description 10/19/2024 MyChart Message Enc [facility] - [place] [address] [address] [place], [place] [id number] Alida Klein MD [address] [place] [address] [address] [place] [address] Jardiance Social History Tobacco Use Types Packs/Day [...] Legal Sex Female 7:40 PM DIRECTOR OF BUSINESS DEVELOPMENT Gender Identity Female 03/25/2024 3:16 PM CDT Sexual Orientation Straight 03/25/2024 3: 16 PM CDT documented as of this encounter Plan of Treatment Upcoming Encounters Date Type Department Care Team (Late st Contact Info) Description 09/25/2025 8:00 AM DIRECTOR OF BUSINESS DEVELOPMENT Office Visit [facility] [address] [place] [address] [address] [place] [address] Alida Klein MD [address] [place] [address] [phone] documented as of this encounter Visit Diagnoses Not on filedocumented in this encounter Care Teams Batch Plant Supervisor Relationship Specialty Start Date End Date Alida Klein MD [address] [place] [address] [phone] PCP - General INTERNAL MEDICINE 03/23/24 documented as of this encounter
--- OUTSIDE RECORDS SUMMARY | 2025-09-14 14:25 | XMS_ITS | Clinical Summary ---
Author Organization [facility] Address [address] [place] [address] Care Team Providers Care Precision Agriculture Technician Name Role Phone Rodrigo Rizvi MD Primary Care Provider [phone] Source Comments [facility],non-owned Affiliates and Associated Physician Practices is amultiple site organization consisting of ambulatory clinics and hospital sitesin [place], [place], [place] and [place]. This disclosure is being madepursuant to the Care Everywhere program and may not contain all information available regarding this patient. Last updated 18.[facility] Allergies No known active allergies Medications * Be aware that medications may not be up to date on this document. Alwaysverify current medications with the patient. 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 SELF PAY NO INSURANCE Member Subscriber Plan / Payer (Ef fective for All Dates) Name:Destini Maza Member ID:Not on file Relation to Subscriber:Not on file Name:SHAUNNADESTINI Subscriber ID:Not on file (Home) Address: [address] [place], [place] [id number] Payer ID:Not on file Group ID:Not on file Type:Self Pay Address: [facility] PL[facility] [employer] SELF PAY NO INSURANCE Member Subscriber Plan / Payer (Ef fective for All Dates) Name:Destini Maza Member ID:Not on file Relation to Subscriber:Not on file Name:DESTINI MAZA Subscriber ID:Not on file Address: [address] [place] [address] Payer ID:Not on file Group ID:Not on file Type:Self Pay Address: [place] [facility] SELF PAY NO INSURANCE Member Subscriber Plan / Payer (Ef fective for All Dates) Name:Destini Maza Member ID:Not on file Relation to Subscriber:Not on file Name:DESTINI MAZA Subscriber ID:Not on file Address: [address] [place] [address] Payer ID:Not on file Group ID:Not on file Type:Self Pay Address: [place] [facility] SELF PAY NO INSURANCE Member Subscriber Plan / Payer (Ef fective for All Dates) Name:Destini Maza Member ID:Not on file Relation to Subscriber:Not on file Name:DESTINI MAZA Subscriber ID:Not on file Address: [address] [place] [phone] Payer ID:Not on file Group ID:Not on file Type:Self Pay Address: [place], [place] * Guarantor: DESTINI MAZA Account Type Relation to Patient Date of Phone Billing Address Personal/Family Spouse Care Teams Precision Agriculture Technician Relationship Specialty Start Date End Date Rodrigo Rizvi MD [address] [place] [phone] PCP - General 04/27/18
--- OUTSIDE RECORDS SUMMARY | 2025-09-14 14:25 | XMS_ITS | Clinical Summary ---
Author Organization [facility] Address [address] [place] [address] Care Team Providers Care Dimensional Inspector Name Role Phone Alida Klein MD Primary Care Provider [phone] Allergies Active Allergy Reactions Criticality Noted Date Comments Latimer Nausea and Vomiting Low 06/13/2025 Scopolamine Blurred [...] Type Department Care Team Description 09/11/2025 [facility]phone [facility] - [address] [place] [address] Alida Klein MD Concerns 08/10/2025 Scan [facility] SRVCS Scanned, Doc [facility] Lab (SCAN); Procedure (SCAN); Pathology (SCAN) 08/08/2025 Scan [facility] Scanned, Doc Med [facility] 08/02/2025 Scan [facility] Scanned, Doc [facility] Lab (SCAN) 07/19/2025 7:30 AM CDT [facility] - [place] [address] [place] [address] Alida Klein MD 07/19/2025 - 07/19/2025 11:59 PM CDT Hospital Encounter [facility] [place] [address] Alida Klein MD Discharge Disposition: Home or Self Care (Routine Discharge) 07/19/2025 Results [facility] [place] [address] [place] [address] Rosalba Morales NP THYROXINE, FREE (FT4), TSH W/REFLEX, FREE T3 07/19/2025 Travel 07/14/2025 Scan [facility]VCS Scanned, Doc [facility] Group Image (SCAN) 06/19/2025 7:00 AM CDT Office Visit [facility] [place] [address] [place] [address] Alida Klein MD Physical; GERD (/); Follow Up (Follow up of chronic medical issues) 06/19/2025 Results Follow-Up [facility] [place] [address] [place] [address] Alida Klein MD URINALYSIS, ALBUMIN/CREATININE RATIO, RANDOM [...] from your doctor or pharmacy? Never 06/19/2025 [facility] Utilities Answer Date Recorded In the past 12 months has e [place], gas, oil, or water [employer] threatened to shut off services in your [...] week 06/19/2025 How often do you attend [facility] or congregational services? Patient unable to answer 06/19/2025 Do you belong to any clubs o r organizations such as cheondoism groups, unions, fraternal or athletic groups, or [...] Recorded Patient Health Questionnaire-2 Score 2 06/19/2025 [facility] - Occupational Stress [...] any time in the past 12 m [facility], were you homeless or living in a senior care (including now)? No 06/19/2025 Comments No Sex and Gender Information Value Date Recorded Sex Assigned at Female 03/25/2024 3:16 PM CDT Legal Sex Female 7:40 PM AGRONOMY INSTRUCTOR Gender Identity Female 03/25/2024 3:16 PM CDT [...] st Contact Info) Description 09/25/2025 8:00 AM AGRONOMY INSTRUCTOR Office Visit [facility]ty [facility] - [place] [address] [place] [address] [address] [place], [place] [id number] Alida Klein MD [address] [facility] [address] [place] [address] Health Maintenance Due Date Last Done Comments [...] Hepatitis C Completed 03/27/2025, 03/25/2024 PHQ-2 (Physician [place]) Completed 06/19/2025 Hepatitis A Vaccines Aged Out [...] * PATHOLOGY GENERIC (SCAN ORDER) (08/10/2025) 08/10/2025 [employer] Scanned SCANNING Final Resu lt * OUTSIDE LAB (SCAN ORDER) (08/10/2025) Only the most recent of3 resultswithin the time period is included. 08/10/2025 [employer] Scanned SCANNING Final Resu lt * PROCEDURE GENERIC (SCAN ORDER) (08/10/2025) 08/10/2025 [employer] Scanned SCANNING Final Resu lt * TSH W/REFLEX (07/19/2025 7:44 AM CDT) Only the most recent of2 resultswithin the time period is included. TSH 0.628 0.358 - 3.740 uIU/ML 07/19/2025 3:53 PM CDT [facility] 07/19/2025 7:44 AM CDT Alida Klein MD LABORATORY Final Result Performing Organization Address [facility] [[email or web address]] de Phone Number [facility] [address] [place] [address], [place] [phone] * FREE T3 (07/19/2025 7:44 AM CDT) FREE T3 2.7 2.2 - 3.9 PG/ML 07/19/2025 7:47 PM CDT [facility] 07/19/2025 7:44 AM CDT Alida Klein MD LABORATORY Final Result Performing Organization Address [facility] [[email or web address]] de Phone Number [facility] [address] [place] [address], [phone] * THYROXINE, FREE (FT4) (07/19/2025 7:44 AM CDT) Only the most recent of2 resultswithin the time period is included. FREE T4 0.98 0.76 - 1.46 NG/DL 07/19/2025 3:53 PM CDT [facility] 07/19/2025 7:44 AM CDT Alida Klein MD LABORATORY Final Result Performing Organization Address [facility] [[email or web address]] de Phone Number [facility] [address] [place] [address], [place] [phone] * IMAGE GENERIC (07/14/2025) Anatomical Region Laterality Modality Other 07/14/2025 [facility] Scanned SCANNING Final Resu lt * HEMOGLOBIN, GLYCOSYLATED (06/19/2025 7:35 AM CDT) HGB A1C 5.1 4.5 - 6.2 % 06/19/2025 4:02 PM CDT [facility] ESTIMATED AVG GLUCOSE 100 74 - 106 MG/DL 06/19/2025 4:02 PM CDT [facility] 06/19/2025 7:35 AM CDT Alida Klein MD LABORATORY Final Result [facility] [address] [place] [address], * (ABNORMAL) URINALYSIS (06/19/2025 7:35 AM CDT) COLOR (U) YELLOW 06/19/2025 3:57 PM CDT [facility] TRANSPARENCY CLOUDY(A) CLEAR 06/19/2025 3:57 PM CDT [facility] SPECIFIC GRAVITY (U) >1.030 1.003 - 1.040 06/19/2025 3:57 PM CDT [facility] U PH 6.0 5.0 - 9.0 06/19/2025 3:57 PM CDT [facility] PROTEIN RANDOM (U) TRACE(A) NEGATIVE 06/19/2025 3:57 PM CDT [facility] GLUCOSE (U) NEGATIVE NEGATIVE 06/19/2025 3:57 PM CDT [facility] KETONES MG/DL (U) NEGATIVE NEGATIVE 06/19/2025 3:57 PM CDT [facility] BILIRUBIN (U) 1+(A) NEGATIVE 06/19/2025 3:57 PM CDT [facility] BLOOD (U) NEGATIVE NEGATIVE 06/19/2025 3:57 PM CDT [facility] UROBILINOGEN 0.2 0.0 - 2.0 EU/DL 06/19/2025 3:57 PM CDT [facility] NITRITES NEGATIVE NEGATIVE 06/19/2025 3:57 PM CDT [facility] LEUKOCYTES (U) NEGATIVE NEGATIVE 06/19/2025 3:57 PM CDT [facility] RBC/HPF 0-3 0 - 3 /HPF 06/19/2025 3:57 PM CDT [facility] WBC/HPF 0-3 0 - 3 /HPF 06/19/2025 3:57 PM CDT [facility] EPI/HPF 0-3 /HPF 06/19/2025 3:57 PM CDT [facility] BACTERIA (U) 1+(A) NONE SEEN 06/19/2025 3:57 PM CDT [facility] MUCUS FEW 06/19/2025 3:57 PM CDT [facility] COMMENT (U) Less than 12 ml urine submitted. 06/19/2025 3:57 PM CDT [facility] URIC ACID CRYSTALS PRESENT 06/19/2025 3:57 PM CDT [facility] AMORPHOUS SEDIMENT PRESENT 06/19/2025 3:57 PM CDT [facility] URINE SPECIMEN OBTAINED BY CLEAN CATCH PROCEDURE / Unknown 06/19/2025 7:35 AM CDT Alida Klein MD URINE ORDERABLES Final Result [facility] [address] [place] [address], * ALBUMIN/CREATININE RATIO, RANDOM URINE (06/19/2025 7:35 AM CDT) MICROALBUMIN (U) 13.4 <20 MG/L 06/19/20 3:29 PM CDT [facility] CREATININE RANDOM (U) 448.1 MG/DL 06/19/2025 4:07 PM CDT [facility] ALBUMIN/CREAT RATIO 3.0 <30 MG/G 06/19/2025 4:07 PM CDT [facility] SPECIMEN / Unknown 06/19/2025 7:35 AM CDT Alida Klein MD URINE ORDERABLES Final Result [facility] [address] [place] [address], * (ABNORMAL) COMPREHENSIVE METABOLIC PANEL (06/19/2025 7:35 AM CDT) SODIUM S/P/B 141 136 - 145 MMOL/L 06/19/2025 3:49 PM CDT [facility] POTASSIUM S/P/B 3.7 3.5 - 5.1 MMOL/L 06/19/2025 3:49 PM CDT [facility] CHLORIDE S/P/B 103 98 - 107 MMOL/L 06/19/2025 3:49 PM CDT [facility] CO2 27.3 21 - 32 MMOL/L 06/19/2025 3:49 PM CDT [facility] GLUCOSE 118(H) 70 - 99 MG/DL 06/19/2025 3:49 PM CDT [facility] BUN 14 7 - 18 MG/DL 06/19/2025 3:49 PM CDT [facility] CREATININE S/P/B 0.65 0.55 - 1.02 MG/DL 06/19/2025 3:49 PM T [facility] CALCIUM S/P/B 9.1 8.4 - 10.5 MG/DL 06/19/2025 3:49 PM CDT [facility] BILIRUBIN TOTAL S/P/B 0.4 0.2 - 1.0 MG/DL 06/19/2025 3:49 PM CDT [facility] ALKALINE PHOSPHATASE S/P/B 44 37 - 98 U/L 06/19/2025 3:49 PM CDT [facility] AST 13(L) 15 - 37 U/L 06/19/2025 3:49 PM CDT [facility] ALT 18 14 - 59 U/L 06/19/2025 3:49 PM T [facility] TOTAL PROTEIN S/P/B 7.2 6.4 - 8.2 G/DL 06/19/2025 3:49 PM T [facility] ALBUMIN S/P/B 4.0 3.4 - 5.0 G/DL 06/19/2025 3:49 PM T [facility] ANION GAP 10.7 5 - 15 MMOL/L 06/19/2025 3:49 PM T [facility] Comment:REFERENCE RANGE NOT ESTABLISHED OSMOLALITY (CALC) 294 MOSM/KG 025 3:49 PM T [facility] Comment:REFERENCE RANGE NOT ESTABLISHED GFR ESTIMATE >90 >90 ML/MIN/1. 73 M2 06/19/2025 3:49 PM T [facility] GFR NOTES GFR REFERENCE S: 06/19/2025 3:49 PM T [facility] Comment: THE ESTIMATED GFR IS CALCULATED USING [...] Klein MD LABORATORY Final Result [facility] [address] [place] [address], [place] [phone] * (ABNORMAL) LIPID PANEL (06/19/2025 7:35 AM CDT) CHOLESTEROL 178 <200 MG/DL 06/19/2025 3:49 PM CDT [facility] TRIGLYCERIDES 58 <150 MG/DL 06/19/2025 3:49 PM CDT [facility] HDL 49 >40 MG/DL 06/19/2025 3:49 PM CDT [facility] LDL-C 117(H) <100 MG/DL 06/19/2025 3:49 PM CDT [facility] VLDL CALCULATION 12 5 - 28 MG/DL 06/19/2025 3:49 PM CDT [facility] CHOL/HDL RATIO 3.6 0.0 - 4.0 06/19/2025 3:49 PM CDT [facility] LDL/HDL 2.4(H) 0.41 - 2.13 06/19/2025 3:49 PM CDT [facility] NON HDL CHOLESTEROL 129 <140 MG/DL 06/19/2025 3:49 PM CDT [facility] 06/19/2025 7:35 AM CDT us Alida Klein MD LABORATORY Final Result Performing Organization Address City/[facility]/ZIP Co de Phone Number [facility] [address] [place] [address], [place] [phone] * (ABNORMAL) CBC W/DIFF AUTOMATED (06/19/2025 7:35 AM CDT) [facility] WBC 5.57 4.00 - 10.80 x10'3/uL 06/19/2025 3:31 PM CDT [facility] RBC 4.36 4.10 - 5.40 x10'6/uL 06/19/2025 3:31 PM CDT [facility] HGB 13.6 12.0 - 16.0 G/DL 06/19/2025 3:31 PM CDT [facility] HCT 39.7 36.0 - 47.0 % 06/19/2025 3:31 PM CDT [facility] MCV 91.1 78.0 - 100.0 FL 06/19/2025 3:31 PM CDT [facility] MCH 31.2(H) 27.0 - 31.0 PG 06/19/2025 3:31 PM CDT [facility] MCHC 34.3 33.0 - 36.0 G/DL 06/19/2025 3:31 PM CDT [facility] RDW 11.8 11.5 - 14.5 % 06/19/2025 3:31 PM CDT [facility] PLT 226 150 - 350 x10'3/uL 06/19/2025 3:31 PM T [facility] MPV 10.5(H) 7.4 - 10.4 FL 06/19/2025 3:31 PM T [facility] DIFFERENTIAL TYPE AUTOMATED DIFFERENTIAL 06/19/2025 3:31 PM T [facility] NEUTROPHILS % 57.5 % 06/19/2025 3:31 PM CDT [facility] LYMPHOCYTES % 32.1 % 06/19/2025 3:31 PM CDT [facility] MONOCYTES % 8.4 % 06/19/2025 3:31 PM CDT [facility] EOSINOPHILS % 1.3 % 06/19/2025 3:31 PM CDT [facility] BASOPHILS % 0.5 % 06/19/2025 3:31 PM CDT [facility] IMMATURE GRANS % 0.2 % 06/19/2025 3:31 PM CDT [facility] ABS. NEUTROPHILS 3.20 1.60 - 8.30 x10'3/uL 06/19/2025 3:31 PM CDT [facility] ABS. LYMPHOCYTES 1.79 0.80 - 4.70 x10'3/uL 06/19/2025 3:31 PM CDT [facility] ABS. MONOCYTES 0.47 0.00 - 1.50 x10'3/uL 06/19/2025 3:31 PM CDT [facility] ABS. EOSINOPHILS 0.07 0.00 - 0.40 x10'3/uL 06/19/2025 3:31 PM CDT [facility] ABS. BASOPHILS 0.03 0.00 - 0.20 x10'3/uL 06/19/2025 3:31 PM CDT [facility] ABS. IMMATURE GRANULOCYTES 0.01 0.00 - 0.03 x10'3/uL 06/19/2025 3:31 PM CDT [facility] 06/19/2025 7:35 AM CDT Alida Klein MD LABORATORY Final Result [facility] [address] [place] [address], * MAMMOGRAM GENERIC (SCAN ORDER) (05/01/2025) Anatomical Region Laterality Modality Other 05/01/2025 us [facility] Scanned SCANNING Final Resu lt * HEPATITIS C ANTIBODY (03/25/2024 8:46 AM CDT) HEPATITIS C AB NON-REACTI VE NON-REACT ANTOINETTE 03/25/2024 6:23 PM CDT [facility] Comment: ANTIBODIES TO HCV NOT DETECTED. DOES NOT EXCLUDE THE POSSIBILITY OF EXPOSURE TO HCV. 03/25/2024 8:46 AM CDT Alida Klein MD LABORATORY Final Result [facility] [address] [place] [address], [place] [phone] from Last 3 Months or Most Recently Relevant to Health Maintenance Insurance Care Teams Dimensional Inspector Relationship Specialty Start Date End Date Alida Klein MD [address] [facility] [address] [place] [id number] PCP - General INTERNAL MEDICINE 03/23/24
--- OUTSIDE RECORDS SUMMARY | 2025-09-14 14:25 | XMS_ITS | Clinical Summary ---
Author Organization [facility] Care Team Providers Care College Sports Coach Name Role Phone Unavailable Primary Care Provider [...]
--- OUTSIDE RECORDS SUMMARY | 2025-09-14 14:26 | XMS_ITS | Encounter Summary ---
Author Organization [facility] Address [facility] [place] [address] Care Team Providers Care Rn Acute Dialysis Name Role Phone Alida Klein MD Primary Care Provider [phone] Encounter Details Date Type Department Care Team (Late st Contact Info) Description 05/20/2024 MyChart Message Enc [facility] Multispecialty Care - [place] [address] [address] [place], [place] [id number] Alida Klein MD [address] [place] [address] [address] [place], [place] [id number] Lab results. 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 Sex Female 7:40 PM MERIT SYSTEM DIRECTOR Gender Identity Female 03/25/2024 3:16 PM CDT Sexual Orientation Straight 03/25/2024 3: 16 PM CDT documented as of this encounter Plan of Treatment Upcoming Encounters Date Type Department Care Team (Late st Contact Info) Description 09/25/2025 8:00 AM MERIT SYSTEM DIRECTOR Office Visit [facility] Mult[facility]pecialty Care [place] [address] [address] [place] [address] Alida Klein MD [address] [place] [address] documented as of this encounter Visit Diagnoses Not on filedocumented in this encounter Additional Health Concerns Infection Onset Date Last Indicated Resolved Time COVID-19 Rule Out 09/30/2024 09/30/2024 09/30/2024 3:56 PM MERIT SYSTEM DIRECTOR documented as of this encounter Care Teams Rn Acute Dialysis Relationship Specialty Start Date End Date Alida Klein MD [address] [place] [id number] PCP - General INTERNAL MEDICINE 03/23/24 documented as of this encounter
--- OUTSIDE RECORDS SUMMARY | 2025-09-14 14:26 | XMS_ITS | Encounter Summary ---
Author Organization [facility] Address [facility] [place] [address] Care Team Providers Care Comp Field Case Manager Name Role Phone Alida Klein MD Primary Care Provider [phone] Encounter Details Date Type Department Care Team (Late st Contact Info) Description 06/06/2025 MyChart Message Enc [facility] Medical [facility] Multispecialty Care - [place] [address] [place] [address] [address] [place] [address] Alida Klein MD [address] [place] [address] [address] [place] [address] Nausea Social History Tobacco Use Types Packs/Day [...] PM CDT Legal Sex Female 7:40 PM ACADEMIC COUNSELOR Gender Identity Female 03/25/2024 3:16 PM CDT Sexual Orientation Straight 03/25/2024 3: 16 PM CDT documented as of this encounter Plan of Treatment Upcoming Encounters Date Type Department Care Team (Late st Contact Info) Description 09/25/2025 8:00 AM ACADEMIC COUNSELOR Office Visit [facility] Medical Group Multispecialty Care - [place] [address] [address] [place] [address] Alida Klein MD [address] [place] [phone] documented as of this encounter Visit Diagnoses Not on filedocumented in this encounter Care Teams Comp Field Case Manager Relationship Specialty Start Date End Date Alida Klein MD [address] [place] [address] [phone] PCP - General INTERNAL MEDICINE 03/23/24 documented as of this encounter
--- OUTSIDE RECORDS SUMMARY | 2025-09-14 14:26 | XMS_ITS | Encounter Summary ---
Author Organization [facility] Address [facility] [place] [address] Care Team Providers Care Post Tensioning Ironworker Name Role Phone Alida Klein MD Primary Care Provider [phone] Encounter Details Date Type Department Care Team (Late st Contact Info) Description 05/04/2024 MyChart Message Enc [facility] Medical Group Multispecialty Care [facility] [address] [place] [address] [address] [place] [address] Alida Klein MD [address] [place] [address] [address] [place] [address] Ramón Social History Tobacco Use Types Packs/Day [...] PM CDT 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 Gender Identity Female 03/25/2024 3:16 PM CDT Sexual Orientation Straight 03/25/2024 3: 16 PM CDT documented as of this encounter Plan of Treatment Upcoming Encounters Date Type Department Care Team (Late st Contact Info) Description 09/25/2025 8:00 AM WASHHOUSE WORKER Office Visit [facility] Medical Group Multispecialty Care - [place] [address] [address] [place] [address] Alida Klein MD [address] [address] documented as of this encounter Visit Diagnoses Not on filedocumented in this encounter Additional Health Concerns Infection Onset Date Last Indicated Resolved Time COVID-19 Rule Out 09/30/2024 09/30/2024 09/30/2024 3:56 PM WASHHOUSE WORKER documented as of this encounter Care Teams Post Tensioning Ironworker Relationship Specialty Start Date End Date Alida Klein MD [address] [place] [phone] PCP - General INTERNAL MEDICINE 03/23/24 documented as of this encounter
--- OUTSIDE RECORDS SUMMARY | 2025-09-14 14:26 | XMS_ITS | Encounter Summary ---
Author Organization [facility] Address [facility] [place] [address] Care Team Providers Care Geothermal Operations Manager Name Role Phone Alida Klein MD Primary Care Provider [phone] Encounter Details Date Type Department Care Team (Late st Contact Info) Description 05/21/2024 MyChart Message Enc [facility] Medical Group Multispecialty Care - [place] [address] [place] [address] [address] [place], [place] [phone] Alida Klein MD [address] [place] [address] [address] [place] [address] STD test result Social History Tobacco Use [...] PM CDT Legal Sex Female 7:40 PM NUT PROCESS HELPER Gender Identity Female 03/25/2024 3:16 PM CDT Sexual Orientation Straight 03/25/2024 3: 16 PM CDT documented as of this encounter Plan of Treatment Upcoming Encounters Date Type Department Care Team (Late st Contact Info) Description 09/25/2025 8:00 AM NUT PROCESS HELPER Office Visit [facility] Multispecialty Care - [place] [address] [address] [place] [address] Alida Klein MD [address] [place] [address] documented as of this encounter Visit Diagnoses Not on filedocumented in this encounter Additional Health Concerns Infection Onset Date Last Indicated Resolved Time COVID-19 Rule Out 09/30/2024 09/30/2024 09/30/2024 3:56 PM NUT PROCESS HELPER documented as of this encounter Care Teams Geothermal Operations Manager Relationship Specialty Start Date End Date Alida Klein MD [address] [place] [id number] PCP - General INTERNAL MEDICINE 03/23/24 documented as of this encounter
--- OUTSIDE RECORDS SUMMARY | 2025-09-14 14:26 | XMS_ITS | Encounter Summary ---
Author Organization [facility] Address [facility] [place] [address] Care Team Providers Care Mix Maker Name Role Phone Alida Klein MD Primary Care Provider [phone] Encounter Details Date Type Department Care Team (Late st Contact Info) Description 05/18/2024 MyChart Message Enc [facility] Medical Group Multispecialty Care - [place] [address] [place] [address] [address] [place] [address] Alida Klein MD [address] [place] [address] 157 [place] [address] Lab results 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 Sex Female 7:40 PM PRODUCTION CONTROL MANAGER Gender Identity Female 03/25/2024 3:16 PM CDT Sexual Orientation Straight 03/25/2024 3: 16 PM CDT documented as of this encounter Plan of Treatment Upcoming Encounters Date Type Department Care Team (Late st Contact Info) Description 09/25/2025 8:00 AM PRODUCTION CONTROL MANAGER Office Visit [facility] - [place] [address] [address] [place] [address] Alida Klein MD [address] [place] [phone] documented as of this encounter Visit Diagnoses Not on filedocumented in this encounter Additional Health Concerns Infection Onset Date Last Indicated Resolved Time COVID-19 Rule Out 09/30/2024 09/30/2024 09/30/2024 3:56 PM PRODUCTION CONTROL MANAGER documented as of this encounter Care Teams Mix Maker Relationship Specialty Start Date End Date lAida Klein MD [address] [place] [id number] PCP - General INTERNAL MEDICINE 03/23/24 documented as of this encounter
[2025-09-14] MEDS: SODIUM CHLORIDE 0.9% IV 1,000 ML 999 ML IV CONT (14:36)
[2025-09-14] MEDS: ONDANSETRON INJ 4 MG/2 ML VIAL IV PUSH (14:37)
[2025-09-14] MEDS: KETOROLAC 30 MG/ML VIAL (*BKC) IV PUSH (14:37)
[2025-09-14 14:53] LABS: Add Urine Microscopic? YES; Appearance Urine Cloudy (Clear); Glucose Urine UA 3+ mg/dL (Negative); Leukocyte Esterase Ur Negative LEU/UL (Negative); Need Manual Microscopic Reviewed; Nitrate Urine Negative (Negative); Specific Grav Ur > 1.045 (1.001-1.035)
[2025-09-14 15:25] VITALS: BP 123/98; PULSE 72; RESP 16; O2SAT 100
[2025-09-14] MEDS: CEPHALEXIN 500 MG CAPSULE PO (15:25)
[2025-09-14] MEDS: ONDANSETRON HCL ODT 4 MG TABLET PO (15:25)
== END 2025-09-14 15:35 | disposition home or self-care (01) ==
PROVIDERS: Emergency Provider Student in an Organized Health Care Education/Training Program; PCP Internal Medicine
DX: R10.32 Left lower quadrant pain (principal); N34.2 Other urethritis; E11.9 Type 2 diabetes mellitus without complications; Z79.85 Long-term (current) use of injectable non-insulin antidiabetic drugs; K21.9 Gastro-esophageal reflux disease without esophagitis; Z95.2 Presence of prosthetic heart valve
CPT/HCPCS: 36415; 74177; 80053; 81001; 83690; 85025; 96361; 96374; 96375; 99284; A9270; J1885; J2405; J7030; Q9967